=== PATIENT | male | born 1950 | race Caucasian/White ===

== ENCOUNTER → 2019-12-22 13:05 | Outpatient (CLI) | payer MEDICARE, SELFPAY ==
[2019-12-23 11:24] LABS: Basophils # 0.1 K/mm3 (0-0.2); Basophils % 0.8 % (0.1-2.0); Eosinophils # 0.2 K/mm3 (0.0-0.4); Eosinophils % 2.8 % (0.1-12.0); Hematocrit 45.9 % (42.0-52.0); Lymphocytes % 34.4 % (10-50); Mean Corpuscular HGB Conc 30.5 g/dL (31.8-35.4); Mean Corpuscular Hemoglobin 29.9 pg (27.0-31.2); Mean Corpuscular Volume 98.1 fl (80-94); Mean Platelet Volume 10.1 fl (7.4-10.4); Monocytes # 0.5 K/mm3 (0.1-1.0); Monocytes % 5.2 % (1.7-9.3); Neutrophils # 4.9 K/mm3 (1.8-7.8); Neutrophils % 56.9 % (37.0-80.0); Platelet Count 246 K/mm3 (142-424); Red Blood Count 4.68 M/mm3 (4.60-6.20); Red Cell Distribution Width 15.2 % (11.5-17.5); White Blood Count 8.6 K/mm3 (4.8-10.8)
[2019-12-23 11:31] LABS: Chloride 104 mmol/L (98-107); Potassium 4.8 mmoL/L (3.5-5.1); Sodium 140 mmol/L (136-145)
[2019-12-23 11:34] LABS: Alanine Aminotransferase 14 U/L (12-78); Albumin Level 4.3 g/dl (3.5-5.0); Albumin/Globulin Ratio 1.6 (1.1-1.8); Alkaline Phosphatase 68 U/L (38-126); Anion Gap 13.8 mEq/L (5-15); Aspartate Amino Transferase 25 U/L (17-59); Bilirubin,Total 0.3 mg/dl (0.2-1.3); Blood Urea Nitrogen 31 mg/dl (9-20); Carbon Dioxide 27 mmol/L (22.0-30.0); Cholesterol 143 mg/dl (140-200); Estimated Glomerular Filt Rate 60 ml/min (>60); GFR (African American) 73 ML/MIN (>60); Globulin 2.7 g/dL (1.3-3.2); Triglycerides 170 mg/dl (30-150); VLDL Cholesterol 34 mg/dL (0-40)
[2019-12-23 11:35] LABS: Calcium 10.1 mg/dl (8.4-10.2); Chol/HDL Ratio 3.1 (1-3.5); Glucose 109 mg/dl (74-100); HDL Cholesterol 46 mg/dl (40-60)
[2019-12-23 11:46] LABS: Direct LDL Cholesterol 77.36 mg/dL (100-129)
[2019-12-23 11:55] LABS: T4 (Thyroxine) 6.9 ug/dl (5.53-11.0)
[2019-12-23 12:08] LABS: Thyroid Stimulating Hormone 2.07 uIU/mL (0.465-4.68)
[2019-12-24 10:16] LABS: PSA, Free 0.11 ng/mL; Prostate Specific Ag 0.6 ng/mL (0.0-4.0)
[2019-12-24 10:18] LABS: Vitamin D 25 Hydroxy 36.9 ng/mL (30.0-100.0)
== END ==
PROVIDERS: Visit Provider Nurse Practitioner Family
DX: E78.5 Hyperlipidemia, unspecified (principal); I10 Essential (primary) hypertension; Z72.0 Tobacco use; Z79.899 Other long term (current) drug therapy; R10.84 Generalized abdominal pain
CPT/HCPCS: 80053; 80061; 82652; 84153; 84154; 84436; 84443; 85025

== ENCOUNTER → 2019-12-31 10:32 | Outpatient (CLI) | payer MEDICARE, SELFPAY ==
[2019-12-31 14:51] LABS: Amylase 58 U/L (30-110); Lipase 80 U/L (23-300)
[2020-01-01 20:44] LABS: H. pylori Breath Test Negative (Negative)
== END ==
PROVIDERS: Visit Provider Physician Assistant
DX: R10.13 Epigastric pain (principal); R10.826 Epigastric rebound abdominal tenderness; R14.0 Abdominal distension (gaseous); R14.2 Eructation
CPT/HCPCS: 36415; 82150; 83013; 83690

== ENCOUNTER → 2020-01-25 07:50 | Outpatient (CLI) | payer MEDICARE, SELFPAY ==
--- NOTE | 2020-01-25 07:50 | CT_ITS ---
PROCEDURE: CT ABDOMEN WO CON CLINICAL HISTORY: abd pain COMPARISON: No exams were available for comparison TECHNIQUE: Axial images obtained with sagittal and coronal reformats. All CT scans at the facility use one or more dose reduction, viz: automated exposure control, ma/kV adjustment per patient size (including targeted exams where dose is matched to indication, i.e. head), or iterative reconstruction technique. FINDINGS: There is mild bibasilar atelectasis. There are coronary arterial calcifications. Atherosclerotic calcifications are seen in the abdominal aorta, iliac and renal vessels. There is no aneurysm. There are calcifications at the corticomedullary junctions of both kidneys right greater than left consistent with nonobstructing renal calculi largest in the mid right kidney is approximately 14 millimeters. No ureteral calculus or hydronephrosis is apparent. A 11 millimeter non cystic exophytic nodule projects off the posterior cortex of the lower pole of the left kidney image 53 series 3 and image 52-53 series 601. Hounsfield unit measurements of 31 HU would be compatible with soft tissue density. A developing neoplasm is not excluded. Hemorrhagic cyst could give this appearance. Consider further assessment via postcontrast CT and/or ultrasound. Calcified splenic granulomas noted. Intra-abdominal organs otherwise have a normal appearance. Small fat containing periumbilical hernia is noted. A few colonic diverticuli are incidentally noted without diverticulitis. No free air free fluid or lymphadenopathy is apparent. Multilevel degenerative disc disease is seen throughout the spine. IMPRESSION: Nonobstructing bilateral nephrolithiasis right greater than left. 11 millimeter non cystic exophytic lesion left kidney. A developing neoplasm is not excluded. Follow-up is recommended. Atherosclerosis including coronary calcification Dictated by: Robles Greco 01/25/2020 08:52 Electronically signed by Robles Greco in [facility] 01/25/2020 08:52
== END ==
PROVIDERS: PCP Nurse Practitioner Family; Visit Provider Physician Assistant
DX: R10.826 Epigastric rebound abdominal tenderness (principal); R14.0 Abdominal distension (gaseous)
CPT/HCPCS: 74150

== ENCOUNTER → 2020-02-10 07:52 | Outpatient (CLI) | payer MEDICARE, SELFPAY ==
--- NOTE | 2020-02-10 07:55 | CT_ITS ---
PROCEDURE: CT ABDOMEN W CON CLINICAL HISTORY: left kidney lesion seen on CT Follow-up left kidney lesion COMPARISON: CT ABDOMEN WO CON from 01/25/2020 TECHNIQUE: 75 mL Optiray 350. Immediate and 10 minutes delayed post enhanced images are obtained Axial images obtained with sagittal and coronal reformats. All CT scans at the facility use one or more dose reduction, viz: automated exposure control, ma/kV adjustment per patient size (including targeted exams where dose is matched to indication, i.e. head), or iterative reconstruction technique. FINDINGS: Lung bases: Chronic changes with coronary artery and aortic valve calcification. Liver shows a 6 mm hypodense lesion in the right hepatic lobe inferiorly which is too small to categorize and may be due to small cyst. The gallbladder, spleen, adrenal glands, and pancreas are unremarkable. Kidneys: There is a 15 mm nonobstructing stone in the mid aspect of the right kidney and a 5 mm stone in the lower pole of the right kidney. No hydronephrosis is evident. There is an exophytic isodense to the projecting off the posterior and inferior aspect of the left kidney at approximately 11 mm. This is not significantly changed from 01/25/2020. This was hyperdense on the unenhanced images without significant enhancement. There is a small umbilical hernia which contains fat. No other significant anomalies are evident. IMPRESSION: 1. Right nephrolithiasis. 2. Indeterminate hyperdense nodule of the left kidney without significant enhancement. This could represent a hyperdense cyst. Ultrasound may provide further evaluation to determine cystic or solid nature. If that is not performed then, would recommend a 3 to six-month CT follow-up to confirm short term stability. Dictated by: Donte Levin MD 02/11/2020 09:16 Electronically signed by Donte Levin MD in [facility] 02/11/2020 09:16
[2020-02-10 08:09] LABS: Chloride 104 mmol/L (98-107); Sodium 140 mmol/L (136-145)
[2020-02-10 08:10] LABS: Potassium 4.7 mmoL/L (3.5-5.1)
[2020-02-10 08:12] LABS: Anion Gap 9.7 mEq/L (5-15); Blood Urea Nitrogen 21 mg/dl (9-20); Carbon Dioxide 31 mmol/L (22.0-30.0); Estimated Glomerular Filt Rate 67 ml/min (>60); GFR (African American) 81 ML/MIN (>60)
[2020-02-10 08:13] LABS: Calcium 9.8 mg/dl (8.4-10.2); Glucose 97 mg/dl (74-100)
--- NOTE | 2020-02-10 08:55 | HMH.ITSHM ---
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 []TAMSULOSIN TADALAFIL PANTOPRAZOLE OLMESARTAN NAPROXEN HYDROCODONE GABAPENTIN FINASTERIDE DICYCLOMINE ATORVASTATIN AMLODIPINE ALLOPURINOL
== END ==
PROVIDERS: PCP Nurse Practitioner Family; Visit Provider Physician Assistant
DX: Z01.818 Encounter for other preprocedural examination (principal); N28.9 Disorder of kidney and ureter, unspecified
CPT/HCPCS: 36415; 74160; 80048; Q9967

== ENCOUNTER → 2020-03-06 06:08 | Outpatient (CLI) | payer MEDICARE, SELFPAY ==
--- NOTE | 2020-03-06 06:09 | NM_ITS ---
APPROVED REPORT Exam: Nuclear Stress Test Indication: SOB, CAD, Hx of DC, HTN, High cholesterol, Tobacco use, Family history Patient Location: Outpatient Stress Tech: Jennie Nathan MT Tech:Elisa Schroeder, ARRT, RT (R)(N) Ht: 5 ft 6 in Wt: 220 lbs HR: 64 bpm BP: 127/77 mmHg BSA: 2.08 m2 BMI: 35.5 History: SOB, CAD, Hx of DC, HTN, High cholesterol, Tobacco use, Family history Procedure: Patient received a 0.4 mg of intravenous Lexiscan, resting heart rate 64 bpm, resting blood pressure 127/77 mmHg, with Lexiscan maximum heart rate achived was 83 bpm which is Less than 85 % of the maximum predicted heart rate and blood pressure was 120/62 mmHg. Electrocardiogram Resting electrocardiogram showed sinus rhythm right bundle branch block, with Lexiscan there is less than 1.[address] segment depression noted from the baseline EKG. The EKG portion of the Lexiscan Myoview is nondiagnostic. Cardiac Stress and Resting SPECT Images: Cardiac Stress and Resting SPECT images were obtained using technetium 99m Myoview 32.2 mCi stress and 10.46 mCi at rest. Gated SPECT for analysis of segmental wall motion and calculation of the ejection fraction also done. Cardiac stress and resting SPECT images show a fixed defect in the apex which is consistent with area of myocardial scarring, no significant golden-infarct ischemia seen. Computer derived ejection fraction is 64% with marked apical wall hypokinesis, right ventricle is normal size and contractility. Conclusion: 1. The EKG portion of the Lexiscan Myoview is nondiagnostic. 2. Scintigraphic evidence of myocardial scarring involving the apex without significant golden-infarct ischemia, computer derived ejection fraction is 64% with mild apical wall hypokinesis, right ventricle is normal size and contractility. 3. Abnormal Lexiscan Myoview study. Electronically signed by : Jarvis Brock, 03/06/2020 20:25:06
--- NOTE | 2020-03-06 06:09 | CA_ITS ---
APPROVED REPORT EXAM: Comprehensive 2D, Doppler, and color-flow Echocardiogram Baker Apprentice: Lana Whyte RVT Ht: 5 ft 6 in Wt: 221lbs BSA: 2.09 BP: 130/92 mmHg Indications: CAD,ABN CALCIUM SCORE ON CT,HTN,HLD,SMOKER,FATIGUE,STENT,HX WI,GERD,PILY,COPD 2D Dimensions LVOT 1.97 cm (M/F) 1.5-2.5 M-Mode Dimensions RVDd 2.33 cm (0.9-2.6) LVDd 5.43 cm (3.5-5.7) LVDs 3.90 cm (3.5-5.7) IVSd 1.09 cm (0.6-1.1) PWd 0.48 cm (0.6-1.1) EF (Teich) 53.90% FS 28.20% EDV (Teich) 143.10 mL ESV (Teich) 65.90 mL LV Diastology E/A Ratio 1.29 Mitral Valve MV A Velocity 86.00 (40-130 cm/s) Left Ventricle Left atrium is mildly enlarged, left ventricle is normal size, mild concentric left ventricular hypertrophy, visually estimated ejection fraction 55% with no regional wall motion abnormality, grade 1 diastolic dysfunction seen with tissue Doppler evidence of raise left atrial pressure. Right Ventricle Right atrium and right ventricle is normal size and contractility. Aortic Valve Aortic valve is thickened and calcified leaflet chordae display good mobility, there is no aortic stenosis or aortic insufficiency. Mitral Valve Mitral valve is grossly normal, there is mild mitral regurgitation. Tricuspid Valve Tricuspid valve is grossly normal, there is mild tricuspid regurgitation. Pulmonic Valve Pulmonic valve is poorly visualized. Great Vessels Aortic root is normal size. Pericardium No significant pericardial effusion noted. Conclusion 1. Mildly enlarged left atrium, normal left ventricular size, mild concentric left ventricular hypertrophy, visually estimated ejection fraction 55% with no regional wall motion abnormality, grade 1 diastolic dysfunction seen with tissue Doppler evidence of raise left atrial pressure. 2. Thickened and calcified aortic valve without aortic stenosis aortic insufficiency. 3. Mild mitral and tricuspid regurgitation. 4. No significant pericardial effusion noted. Electronically signed by : Jarvis Brock, 03/06/2020 19:57:34
--- NOTE | 2020-03-06 06:09 | CA_ITS ---
APPROVED REPORT Exam: Pharmacologic Technologist: Jennie Nathan Ht: 5 ft 6 in Wt: 220 lbs BSA: 2.08 m2 HR: 64 bpm BP: 127/77 mmHg Indications: Abnormal CT, CAD Medical History Medications: Amlodipine,,,,, Aspirin,,,,, Hydrocodone,,,,, Allopurinol,,,,, Pantoprazole,,,,, Atorvastatin,,,,, TAMSULOSIN,,,,, Naproxen,,,,, DicyCLOMINE,,,,, Finasteride,,,,, Nitroglycerin,,,,, Olmesartan,,,,, Stress Test Details Test: LEXISCAN HR Resting HR: 66 bpm Max Heart Rate (APMHR): 153 bpm Max HR Achieved: 96 bpm Target HR (85% APMHR): 130 bpm % of APMHR: 62 Recovery HR: 78 bpm BP Resting BP: 127.0/77.0 mmHg Max BP: 127.0/77.0 mmHg Recovery BP: 117.0/62.0 mmHg ECG Clinical Exercise duration: 04:00 min Highest Stage Achieved: Exercise capacity: 1.0 METs Stress ECG Conclusion Resting ECG: Sinus rhythm, right bundle branch block Lexiscan portion of completed. Patient complained of chest tightness and shortness of breath during peak infusion. Symptoms: Chest pain and shortness of breath during peak infusion. Resolved in recovery. Arrhythmias/Ectopy: No ectopy ST-T Changes: Less than 1.[address] depression. Conclusion: Images to follow. Electronically signed by : Jarvis Brock, 03/06/2020 20:22:14
--- NOTE | 2020-03-06 08:58 | HMH.ITSHM ---
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 []ASA AMLODIPINE ALLOPURINOL TAMSULOSIN TADALAFIL PANTOPRAZOLE OLMESARTAN NITRO NAPROXEN HYDROCODONE GABAPENTIN FINASTERIDE DICYLOMINE ATORVASTATIN
== END ==
PROVIDERS: PCP Nurse Practitioner Family; Visit Provider Urology
DX: E78.5 Hyperlipidemia, unspecified (principal); G47.33 Obstructive sleep apnea (adult) (pediatric); I10 Essential (primary) hypertension; I25.10 Atherosclerotic heart disease of native coronary artery without angina pectoris; I25.2 Old myocardial infarction; Z95.5 Presence of coronary angioplasty implant and graft
CPT/HCPCS: 78452; 93017; 93306; A9502; J2785

== ENCOUNTER → 2020-06-05 14:53 | Outpatient (CLI) | payer MEDICARE, SELFPAY ==
--- NOTE | 2020-06-05 14:53 | US_ITS ---
PROCEDURE: US KIDNEY CLINICAL INDICATION: Indeterminate left renal nodule COMPARISON: CT CT ABDOMEN W CON from 02/10/2020 FINDINGS: The right kidney is [id number]. No hydronephrosis, cortical thinning, or renal mass or perinephric fluid collection is evident. The left kidney is [id number]. No hydronephrosis, cortical thinning, or renal mass or perinephric fluid collection is evident. There is a small exophytic cyst along the lower pole left kidney at [address] abnormality. IMPRESSION: CT abnormality corresponds to a benign-appearing 9 mm cyst otherwise negative bilateral renal ultrasound Dictated b Donte Levin MD 06/05/2020 15:53 Donte Levin MD in [facility] 06/05/2020 15:53
== END ==
PROVIDERS: PCP Physician Assistant; Visit Provider Physician Assistant
DX: N28.89 Other specified disorders of kidney and ureter (principal)
CPT/HCPCS: 76770

== ENCOUNTER 2020-06-22 08:00 | Outpatient (RCR) | payer MEDICARE, SELFPAY ==
--- NOTE | 2020-06-08 10:03 | HMH.PTOPEV ---
PT Outpatient Evaluation Rehab PT Outpatient Evaluation Start: 06/08/20 09:04 Freq: Status: Active Protocol: Document 06/08/20 09:44 RAND (Rec: 06/08/20 10:02 RAND [id number]) Electronically Signed By Delbert John, NICK 06/08/20 09:44 Outpatient Therapy Subjective History Subjective History This is the initial Physical Therapy Evaluation for Last Hitchcock. Pt is a 69 y/o male referred to PT for c/o neck and ARELLANO pain. Pt reports he has had multiple trauma to neck in his life but reports pain began insidiously ~ 12-14 years ago. Pt reports his pain begins the moment he wakes up every morning. Pt reports he has ARELLANO's on B sides of head. Chief Complaint Pain,Stiff Symptom Type Ache,Throb,Sharp,Dull,Stabbing Symptoms Relieved By Prescription Meds Symptoms Aggravated By Physical Activity Prior Functional Limitations None Current Functional Limitations Sleeping,Recreation Activity Symptom Description Intermittent Level of pain today (0-10) 5 Pain scale - at its best (0-10) 0 Pain scale - at its worst (0-10) 10 Cervical Eval Palpation Cervical Muscles R Cervical Paraspinal,L Cervical Paraspinal,R Suboccipital,L Suboccipital,R Upper Trapezius,L Upper Trapezius Cervical/Thoracic Palpation Findings Tenderness Passive Joint Mobility Cervical PIVM Dec: R C2/3 L C2/3 R C3/4 L C3/4 R C4/5 L C4/5 R C5/6 L C5/6 R C6/7 L C6/7 R C7/T1 L C7/T1 AROM Cervical Spine Extension Active Range of 50 Motion (degrees) Cervical Spine Flexion Active Range of 40 Motion (degrees) Cervical Spine Right Lateral Flexion 35 Active Range of Motion (degrees) Cervical Spine Left Lateral Flexion 35 Active Range of Motion (degrees) Cervical Spine Right Rotation Active 50 Range of Motion (degrees) Cervical Spine Left Rotation Active 60 Range of Motion (degrees) MMT
== END 2020-06-22 08:05 | disposition home or self-care (01) ==
LOC: PT 08:00
PROVIDERS: PCP Physician Assistant; Visit Provider Physician Assistant
DX: M54.2 Cervicalgia (principal)
CPT/HCPCS: 20560; 97010; 97012; 97014; 97110; 97140; 97163; G0283

== ENCOUNTER → 2020-08-28 09:41 | Outpatient (POV) | payer MEDICARE, SELFPAY ==
[2020-08-28 10:08] VITALS: BP 140/74; PULSE 88; RESP 18; O2SAT 98; BMI 36.3
--- NOTE | 2020-08-28 11:26 | HMH.PMCON ---
Assessment and Plan (1) Degenerative disc disease, cervical Status: Chronic Category: Medical Code(s): M50.30 - Other cervical disc degeneration, unspecified cervical region (2) Neck Pain Status: Chronic Category: Medical Code(s): M54.2 - Cervicalgia - Assessment and plan all Dx Assessment and Plan for all problems:: Patient and I had a discussion in regards to treatment options. Patient is going to continue on his Elavil and with his ENT treatment to see if he gets any benefit from this. I did give him information on nerve stimulation. He is currently on gabapentin and Merrill from his primary care physician. I do believe that this is an appropriate dose. Patient's been instructed to call the office if he would like to return for continual evaluation. Dr. Terrell has reviewed this note and agrees with this plan of care. This note was dictated using voice recognition software and may contain errors or omissions HPI - Data of Consult Consult date: 08/28/20 Requesting Physician: Kenyatta Arellano APRN Primary Care Provider: PANKAJ Monreal - Consult Narrative Reason for consult: Headaches History of present illness: Mr. Hitchcock is a 69 year old male Zentz today for consultation regards to his chronic headaches. Patient has had headaches for 12 to 13 years. He rates his pain a 4 out of 10. He states that they constant. They were originate in his neck. He does have an MRI showing degenerative changes in his neck. Patient has had multiple injections including epidural injections, facet joint injections, trigger point injections. He is gone to 2 locations both in [place] in [place] to get these injections. He has had no relief with them. He is currently seeing Dr. Holman in neurology and was started on Elavil. Patient has just begun this he is unsure if it has helped at this time. Patient also has chronic sinus problems and has been to started seeing an ENT. Patient has been offered a nerve stimulator in the past. Patient is also tried chiropractic therapy, physical therapy, dry needling. CC: Kenyatta Arellano APRN [facility] History I have reviewed the patient's past medical history: Yes Medical History: Reports:: Chronic Obstructive Pulmonary Disease (COPD), Congenital Heart Disease, Coronary Artery Disease, Gastroesophageal Reflux Disease(GERD), Hyperlipidemia, Hypertension, Myocardial Infarction Denies:: Cancer, Diabetes Mellitus Type 1, Diabetes Mellitus Type 2, MRSA *Have you ever received a pneumonia vaccine?: No *Have you received a flu vaccine this season?: No Other Medical History: Reports: Arthritis, Other Laterality Cases: Bilateral: Tonsillectomy Other Surgeries: Yes: Cardiac Catheterization, Colonoscopy, Coronary Stent, Hernia Repair, Open Heart Surgery Amputation: No Fractures: No - *Social History Smoking Status: Current every day smoker Tobacco Type: cigarettes # Packs/Day (cigarettes): 1 Alcohol Intake: never Substance Use Type: denies use *Occupational Status:: other Housing: house Household Members: other *Travel in the last 8 weeks: None Family Hx:: Unable to obtain Review of Systems - Review of Systems ROS General: no recent weight change, no fever, no sleep disturbances Respiratory: no cough, no shortness of air, no recurring pulmonary infections Cardiovascular/Peripheral Vascular: No chest pain, No palpitations, no edema, no shortness of breath. Gastrointestinal: no new onset incontinence, normal bowel movements reported Genitourinary: no new onset incontinence Musculoskeletal: Headaches, neck pain Psychiatric: normal mood/ affect Neurological: [denies new onset weakness in extremities], [denies new onset balance issues] Meds Home Medications Medication Instructions Recorded Confirmed Type allopurinol 300 mg tablet 300 mg PO DAILY tab 02/22/20 08/22/20 History aspirin 325 mg tablet 325 mg PO DAILY 02/22/20 08/22/20 History atorvastatin 10 mg t
== END ==
PROVIDERS: PCP Physician Assistant; Visit Provider Clinical Nurse Specialist Family Health
DX: M50.30 Other cervical disc degeneration, unspecified cervical region (principal)
CPT/HCPCS: 99202

== ENCOUNTER → 2020-09-18 10:39 | Outpatient (POV) | payer MEDICARE, SELFPAY | PROVIDERS: Visit Provider Nurse Practitioner Family | DX: Z00.00 Encounter for general adult medical examination without abnormal findings (principal) ==

== ENCOUNTER → 2020-12-27 13:47 | Outpatient (CLI) | payer MEDICARE, SELFPAY ==
[2020-12-27 14:15] LABS: Basophils # 0.1 K/mm3 (0-0.2); Basophils % 0.5 % (0.1-2.0); Eosinophils # 0.3 K/mm3 (0.0-0.4); Hematocrit 45.7 % (42.0-52.0); Hemoglobin 14.3 g/dL (14.1-18.0); Lymphocytes # 2.9 K/mm3 (0.7-4.5); Mean Corpuscular HGB Conc 31.2 g/dL (31.8-35.4); Mean Corpuscular Hemoglobin 28.9 pg (27.0-31.2); Mean Corpuscular Volume 92.6 fl (80-94); Mean Platelet Volume 9.3 fl (7.4-10.4); Monocytes # 0.6 K/mm3 (0.1-1.0); Monocytes % 6.2 % (1.7-9.3); Neutrophils # 5.4 K/mm3 (1.8-7.8); Neutrophils % 58.4 % (37.0-80.0); Platelet Count 254 K/mm3 (142-424); Red Blood Count 4.94 M/mm3 (4.60-6.20); Red Cell Distribution Width 15.4 % (11.5-17.5); White Blood Count 9.2 K/mm3 (4.8-10.8)
[2020-12-27 14:39] LABS: Alanine Aminotransferase 15 U/L (12-78); Albumin Level 4.2 g/dl (3.5-5.0); Albumin/Globulin Ratio 1.4 (1.1-1.8); Alkaline Phosphatase 80 U/L (38-126); Anion Gap 11.5 mEq/L (5-15); Aspartate Amino Transferase 23 U/L (17-59); Bilirubin,Total 0.5 mg/dl (0.2-1.3); Blood Urea Nitrogen 18 mg/dl (9-20); Carbon Dioxide 30 mmol/L (22.0-30.0); Chloride 105 mmol/L (98-107); Chol/HDL Ratio 3.3 (1-3.5); Cholesterol 143 mg/dl (140-200); Estimated Glomerular Filt Rate 60 ml/min (>60); GFR (African American) 73 ML/MIN (>60); Glucose 110 mg/dl (74-100); HDL Cholesterol 43 mg/dl (40-60); Potassium 5.5 mmoL/L (3.5-5.1); Sodium 141 mmol/L (136-145); Total Protein,Serum 7.2 g/dl (6.3-8.2); Triglycerides 91 mg/dl (30-150); VLDL Cholesterol 18 mg/dL (0-40)
[2020-12-27 14:50] LABS: Direct LDL Cholesterol 75.77 mg/dL (100-129)
[2020-12-27 14:56] LABS: 25-OH Vitamin D, Total 35.5 ng/mL (30-100)
[2020-12-27 15:02] LABS: Free T4 (Free Thyroxine) 1.09 ng/dl (0.78-2.19)
[2020-12-27 15:11] LABS: Prostate Specific Ag Screen 0.3 ng/ml (0.0-4.0)
== END ==
PROVIDERS: Visit Provider Physician Assistant
DX: E78.5 Hyperlipidemia, unspecified (principal); G47.33 Obstructive sleep apnea (adult) (pediatric); I25.10 Atherosclerotic heart disease of native coronary artery without angina pectoris; I25.2 Old myocardial infarction; R53.83 Other fatigue; R63.5 Abnormal weight gain; Z95.5 Presence of coronary angioplasty implant and graft; Z12.5 Encounter for screening for malignant neoplasm of prostate; Z68.38 Body mass index [BMI] 38.0-38.9, adult
CPT/HCPCS: 80053; 80061; 82306; 84439; 84443; 85025; G0103

== ENCOUNTER → 2021-01-04 13:47 | Outpatient (CLI) | payer MEDICARE, SELFPAY ==
[2021-01-04 14:12] LABS: Chloride 106 mmol/L (98-107); Potassium 5.2 mmoL/L (3.5-5.1); Sodium 140 mmol/L (136-145)
[2021-01-04 14:15] LABS: Anion Gap 9.2 mEq/L (5-15); Blood Urea Nitrogen 26 mg/dl (9-20); Calcium 9.7 mg/dl (8.4-10.2); Carbon Dioxide 30 mmol/L (22.0-30.0); Estimated Glomerular Filt Rate 55 ml/min (>60); GFR (African American) 66 ML/MIN (>60); Glucose 111 mg/dl (74-100)
== END ==
PROVIDERS: Visit Provider Physician Assistant
DX: R89.9 Unspecified abnormal finding in specimens from other organs, systems and tissues (principal)
CPT/HCPCS: 80048

== ENCOUNTER → 2021-02-15 14:11 | Outpatient (CLI) | payer MEDICARE, SELFPAY ==
--- NOTE | 2021-02-15 14:11 | US_ITS ---
PROCEDURE: US KIDNEY CLINICAL INDICATION: N28.1 - Cyst of kidney, acquired Follow-up left renal cyst COMPARISON: CT CT ABDOMEN W CON from 02/10/2020 US US KIDNEY from 06/05/2020 FINDINGS: The right kidney is [id number]. No hydronephrosis, cortical thinning, or renal mass or perinephric fluid collection is evident. Shadowing is present in the mid aspect of the right kidney suggesting right nephrolithiasis. No hydronephrosis. The left kidney is [id number]. No hydronephrosis, cortical thinning, or renal mass or perinephric fluid collection is evident.. There is a 9 mm cyst along the lower pole of the left kidney not significantly changed IMPRESSION: 1. No change small left renal cyst. 2. Right nephrolithiasis Dictated by: Donte Levin MD 02/15/2021 16:43 Donte Levin MD in [place] 02/15/2021 16:43
== END ==
PROVIDERS: PCP Physician Assistant; Visit Provider Urology
DX: N28.1 Cyst of kidney, acquired (principal)
CPT/HCPCS: 76770

== ENCOUNTER → 2021-02-26 12:03 | Outpatient (CLI) | payer MEDICARE, SELFPAY ==
--- NOTE | 2021-02-26 12:07 | XR_ITS ---
PROCEDURE: XR KNEE RT 4V CLINICAL INDICATION: right knee pain COMPARISON: No exams were available for comparison FINDINGS: No fracture or dislocation. No lytic or blastic change. There is normal mineralization. Moderate osteoarthritic changes involve the medial compartment. There is mild lateral translation of the tibia approximately 5 mm. There are mild osteoarthritic changes of the lateral compartment and patellofemoral joint. Other findings:None. IMPRESSION: Moderate osteoarthritic changes medial compartment Dictated by: Donte Levin MD 02/26/2021 16:11 Donte Levin MD in [place] 02/26/2021 16:11
== END ==
PROVIDERS: PCP Physician Assistant; Visit Provider Physician Assistant
DX: M25.561 Pain in right knee (principal)
CPT/HCPCS: 73564

== ENCOUNTER → 2021-04-04 10:34 | Outpatient (CLI) | payer MEDICARE, SELFPAY ==
[2021-04-04 10:55] LABS: Basophils # 0.1 K/mm3 (0-0.2); Basophils % 0.6 % (0.1-2.0); Eosinophils # 0.3 K/mm3 (0.0-0.4); Eosinophils % 3.4 % (0.1-12.0); Hematocrit 43.9 % (42.0-52.0); Hemoglobin 14.5 g/dL (14.1-18.0); Lymphocytes # 2.9 K/mm3 (0.7-4.5); Lymphocytes % 33.5 % (10-50); Mean Corpuscular HGB Conc 32.9 g/dL (31.8-35.4); Mean Corpuscular Hemoglobin 29.5 pg (27.0-31.2); Mean Corpuscular Volume 89.5 fl (80-94); Mean Platelet Volume 7.6 fl (7.4-10.4); Monocytes # 0.4 K/mm3 (0.1-1.0); Monocytes % 4.8 % (1.7-9.3); Neutrophils % 57.7 % (37.0-80.0); Platelet Count 217 K/mm3 (142-424); Red Blood Count 4.91 M/mm3 (4.60-6.20); Red Cell Distribution Width 15.7 % (11.5-17.5); White Blood Count 8.6 K/mm3 (4.8-10.8)
[2021-04-04 12:17] LABS: Chloride 103 mmol/L (98-107); Potassium 4.7 mmoL/L (3.5-5.1); Sodium 140 mmol/L (136-145)
[2021-04-04 12:20] LABS: Anion Gap 14.7 mEq/L (5-15); Blood Urea Nitrogen 24 mg/dl (9-20); Calcium 9.3 mg/dl (8.4-10.2); Carbon Dioxide 27 mmol/L (22.0-30.0); Estimated Glomerular Filt Rate 67 ml/min (>60); GFR (African American) 81 ML/MIN (>60); Glucose 146 mg/dl (74-100)
== END ==
PROVIDERS: Visit Provider Surgery
DX: M50.30 Other cervical disc degeneration, unspecified cervical region (principal); L81.9 Disorder of pigmentation, unspecified; Z01.812 Encounter for preprocedural laboratory examination; Z20.822 Contact with and (suspected) exposure to COVID-19
CPT/HCPCS: 80048; 85025; U0003

== ENCOUNTER 2021-04-06 06:06 | Day surgery (SDC) | payer MEDICARE, SELFPAY ==
[2021-04-04 10:15] VITALS: BMI 37.1
--- NOTE | 2021-04-06 06:18 | ECG_ITS ---
APPROVED REPORT Exam: Resting ECG HR:71 bpm ECG Measurements Heart Rate 71 AXES IA 172 P 22 QRSd 128 QRS 89 QT 396 T 44 QTc 430 Conclusion Normal sinus rhythm Right bundle branch block Possible Inferior infarct, age undetermined Abnormal ECG Electronically signed by : Levar Meza, 04/07/2021 10:52:04
[2021-04-06 06:30] VITALS: BP 120/62; PULSE 69; RESP 18; TEMP 37.6; O2SAT 95
--- NOTE | 2021-04-06 07:00 | P.PN_ITS ---
[facility] Anesthesia Checklist - Patient Identification Patient Identification: Arm Band - Structural Data Admitted From: Home Planned Operative Procedure/s: Lesion removal Consent for Planned Operative Procedure(s) Verified: Yes - NPO Status Verified Time NPO: 00:00 - Additional verifications Anesthesia Reactions: No Hx Blood Transfusions: No Blood Transfusion Reaction: No - Airway Assessment C-Spine Mobility Assessed: Yes TMJ Mobility Assessed: Yes Dentition: Poor Dentition - Neurological Assessment Level of Consciousness: Awake Hx Seizures: No Numbness or tingling in extremities: No - Anesthesia Plan Anesthesia Risk discussed: Yes Anesthesia Plan: Verified ASA Class: III Anesthesia Type: MAC [facility] History I have reviewed the patient's past medical history: Yes Medical History: Reports:: Chronic Obstructive Pulmonary Disease (COPD), Congenital Heart Disease, Coronary Artery Disease, Gastroesophageal Reflux Disease(GERD), Hyperlipidemia, Hypertension, Myocardial Infarction, Renal Disease Denies:: Cancer, Diabetes Mellitus Type 1, Diabetes Mellitus Type 2, Internal Pacemaker, MRSA, Seizures *Have you ever received a pneumonia vaccine?: Yes *Have you received a flu vaccine this season?: Yes Other Medical History: Reports: Arthritis, Other. Denies: Blood Transfusion Reaction Anesthesia experience/problems:: None Laterality Cases: Left: Arthroscopy Knee, Bilateral: Tonsillectomy Other Surgeries: Yes: Cardiac Catheterization, Colonoscopy, Coronary Stent, Hernia Repair, Open Heart Surgery. No: Pacemaker Amputation: No Fractures: No - *Social History Last grade of school completed: Some college Smoking Status: Current every day smoker Tobacco Type: cigarettes # Packs/Day (cigarettes): 1 Alcohol Intake: never Substance Use Type: denies use *Occupational Status:: retired Housing: house Household Members: spouse *Travel in the last 8 weeks: None Family Hx:: Diabetes
--- NOTE | 2021-04-06 07:47 | HMH.OPNOTE ---
Date of procedure: 04/06/21 Pre-op Diagnosis:: Left upper extremity skin neoplasm of uncertain behavior (1 cm) Right flank skin neoplasm of uncertain behavior (1 cm) Post-op Diagnosis:: Same Procedure performed:: Excision of left upper extremity skin neoplasm (1cm) Excision of right flank skin neoplasm (1 cm) Surgeon:: Calderon Garrido MD Anesthesia: MAC, local Estimated blood loss (mL): 10 Operative findings:: Lesions excised with 1 mm margin Operative note:: After informed consent was obtained the patient was taken to the operating room and placed in the supine position. Monitored anesthesia care ensued. The right mid flank and the left proximal upper extremity were prepped and draped in a sterile fashion. After infiltration local anesthetic elliptical incisions were made around both lesions with scalpel (1 mm margin). The deep subcutaneous tissue was sharply dissected. Both lesions were excised in toto and passed off for pathologic evaluation. Electrocautery was utilized to achieve hemostasis. Skin was reapproximated with interrupted 4-0 nylon. Dressings were applied and the patient was transferred recovery in stable condition. Condition: stable Disposition: PACU Specimens:: Left upper extremity skin neoplasm Right flank skin neoplasm Complications:: No immediate
[2021-04-06 07:55] VITALS: BP 102/47; PULSE 78; RESP 16; TEMP 36.4; O2SAT 94
[2021-04-06 08:10] VITALS: BP 102/60; PULSE 75; RESP 18; O2SAT 94
[2021-04-06 08:25] VITALS: BP 105/59; PULSE 64; RESP 18; O2SAT 96
== END 2021-04-06 08:25 | disposition home or self-care (01) ==
LOC: OR 06:08
PROVIDERS: PCP Physician Assistant; Visit Provider Surgery
DX: I10 Essential (primary) hypertension (principal); C44.519 Basal cell carcinoma of skin of other part of trunk; J44.9 Chronic obstructive pulmonary disease, unspecified; I25.10 Atherosclerotic heart disease of native coronary artery without angina pectoris; K21.9 Gastro-esophageal reflux disease without esophagitis; E78.5 Hyperlipidemia, unspecified; I25.2 Old myocardial infarction; Q24.9 Congenital malformation of heart, unspecified; N28.9 Disorder of kidney and ureter, unspecified; M19.90 Unspecified osteoarthritis, unspecified site; Z72.0 Tobacco use; Z83.3 Family history of diabetes mellitus; D18.01 Hemangioma of skin and subcutaneous tissue
CPT/HCPCS: 11106; 11107; 88305; 93005; 96374

== ENCOUNTER → 2021-04-23 13:42 | Outpatient (CLI) | payer MEDICARE, SELFPAY ==
[2021-04-23 17:33] LABS: Amphetamine/Metha Screen,Urine Negative ng/ml (<1000)
[2021-04-23 17:34] LABS: Barbiturates Screen,Urine Negative ng/ml (<200)
[2021-04-23 17:35] LABS: Benzodiazepines Screen,Urine Negative ng/ml (<200); Cannabinoid Screen,Urine Negative ng/ml (<50)
[2021-04-23 17:36] LABS: Cocaine Screen,Urine Negative ng/ml (<300)
[2021-04-23 17:37] LABS: Methadone Screen,Urine Negative ng/ml (<300); Opiate Screen,Urine Positive ng/ml (<300)
[2021-04-23 17:38] LABS: Phencyclidine Screen,Urine Negative ng/ml (<25)
== END ==
PROVIDERS: Visit Provider Physician Assistant
DX: Z79.899 Other long term (current) drug therapy (principal)
CPT/HCPCS: 80305

== ENCOUNTER → 2021-04-24 14:55 | Outpatient (POV) | payer MEDICARE, SELFPAY | PROVIDERS: Visit Provider Dermatology | DX: Z00.00 Encounter for general adult medical examination without abnormal findings (principal) ==

== ENCOUNTER → 2021-05-29 07:56 | Outpatient (POV) | payer MEDICARE, SELFPAY | PROVIDERS: Visit Provider Dermatology | DX: Z00.00 Encounter for general adult medical examination without abnormal findings (principal) ==

== ENCOUNTER → 2021-08-14 13:53 | Outpatient (CLI) | payer MEDICARE, SELFPAY ==
[2021-08-14 14:06] LABS: Basophils # 0.1 K/mm3 (0-0.2); Basophils % 0.6 % (0.1-2.0); Eosinophils # 0.3 K/mm3 (0.0-0.4); Eosinophils % 4.1 % (0.1-12.0); Hematocrit 49.1 % (42.0-52.0); Hemoglobin 14.9 g/dL (14.1-18.0); Lymphocytes # 2.4 K/mm3 (0.7-4.5); Lymphocytes % 30.2 % (10-50); Mean Corpuscular HGB Conc 30.3 g/dL (31.8-35.4); Mean Corpuscular Hemoglobin 29.4 pg (27.0-31.2); Mean Corpuscular Volume 96.9 fl (80-94); Mean Platelet Volume 9.9 fl (7.4-10.4); Monocytes # 0.5 K/mm3 (0.1-1.0); Monocytes % 6.4 % (1.7-9.3); Neutrophils # 4.7 K/mm3 (1.8-7.8); Neutrophils % 58.7 % (37.0-80.0); Platelet Count 225 K/mm3 (142-424); Red Blood Count 5.07 M/mm3 (4.60-6.20); Red Cell Distribution Width 15.2 % (11.5-17.5); White Blood Count 7.9 K/mm3 (4.8-10.8)
[2021-08-14 14:39] LABS: Chol/HDL Ratio 3.6 (1-3.5); Cholesterol 129 mg/dl (140-200); HDL Cholesterol 36 mg/dl (40-60); Triglycerides 91 mg/dl (30-150); VLDL Cholesterol 18 mg/dL (0-40)
[2021-08-14 14:57] LABS: T4 (Thyroxine) 7.6 ug/dl (5.53-11.0)
[2021-08-14 15:02] LABS: Hemoglobin A1C 7.7 % (4.0-6.0)
[2021-08-14 15:11] LABS: Thyroid Stimulating Hormone 3.51 uIU/mL (0.465-4.68)
== END ==
PROVIDERS: Visit Provider Physician Assistant
DX: E78.5 Hyperlipidemia, unspecified (principal); I10 Essential (primary) hypertension; M50.30 Other cervical disc degeneration, unspecified cervical region; E11.21 Type 2 diabetes mellitus with diabetic nephropathy; Z79.84 Long term (current) use of oral hypoglycemic drugs
CPT/HCPCS: 80061; 83036; 84153; 84154; 84436; 84443; 85025

== ENCOUNTER → 2022-02-18 12:47 | Outpatient (CLI) | payer MEDICARE, SELFPAY ==
--- NOTE | 2022-02-18 12:48 | US_ITS ---
FINAL REPORT TECHNIQUE: Sonographic images were obtained of the retroperitoneum. CLINICAL HISTORY: .f/u renal cyst COMPARISON: February 15, 2021 FINDINGS: The right kidney measures 10.2 cm. There are echogenic shadowing foci in the right renal collecting system consistent with small nonobstructing stones. The left kidney measures 10.7 cm. There is a 9 mm cyst in the lower pole of the left kidney. IMPRESSION: Right renal stones. 9 mm lower pole left renal cyst. Reviewed, Interpreted and Dictated by Gael Carreon MD Transcribed by Evgeny Emery Authenticated by Gael Carreon MD on 02/18/2022 04:32:[address] [facility]
== END ==
PROVIDERS: PCP Physician Assistant; Visit Provider Urology
DX: N28.1 Cyst of kidney, acquired (principal)
CPT/HCPCS: 76770

== ENCOUNTER → 2022-03-26 10:14 | Outpatient (CLI) | payer MEDICARE, SELFPAY ==
[2022-03-26 14:02] LABS: Alanine Aminotransferase 20 U/L (12-78); Albumin Level 3.9 g/dl (3.5-5.0); Albumin/Globulin Ratio 1.5 (1.1-1.8); Alkaline Phosphatase 74 U/L (38-126); Anion Gap 13.1 mEq/L (5-15); Aspartate Amino Transferase 25 U/L (17-59); Blood Urea Nitrogen 28 mg/dl (9-20); Calcium 9.7 mg/dl (8.4-10.2); Carbon Dioxide 30 mmol/L (22.0-30.0); Chloride 102 mmol/L (98-107); Chol/HDL Ratio 3.9 (1-3.5); Cholesterol 134 mg/dl (140-200); Estimated Glomerular Filt Rate 66 ml/min (>60); GFR (African American) 80 ML/MIN (>60); Globulin 2.6 g/dL (1.3-3.2); Glucose 96 mg/dl (74-100); HDL Cholesterol 34 mg/dl (40-60); Potassium 5.1 mmoL/L (3.5-5.1); Sodium 140 mmol/L (136-145); Total Protein,Serum 6.5 g/dl (6.3-8.2); Triglycerides 175 mg/dl (30-150); VLDL Cholesterol 35 mg/dL (0-40)
[2022-03-26 14:03] LABS: Bilirubin,Total 0.1 mg/dl (0.2-1.3)
[2022-03-26 14:09] LABS: Basophils # 0.1 K/mm3 (0-0.2); Basophils % 0.8 % (0.1-2.0); Eosinophils # 0.3 K/mm3 (0.0-0.4); Eosinophils % 3.4 % (0.1-12.0); Hemoglobin 14.3 g/dL (14.1-18.0); Lymphocytes # 2.3 K/mm3 (0.7-4.5); Lymphocytes % 30.6 % (10-50); Mean Corpuscular HGB Conc 31.8 g/dL (31.8-35.4); Mean Platelet Volume 9.2 fl (7.4-10.4); Monocytes # 0.5 K/mm3 (0.1-1.0); Neutrophils # 4.4 K/mm3 (1.8-7.8); Neutrophils % 58.3 % (37.0-80.0); Platelet Count 243 K/mm3 (142-424); Red Blood Count 4.95 M/mm3 (4.60-6.20); Red Cell Distribution Width 16.9 % (11.5-17.5); White Blood Count 7.6 K/mm3 (4.8-10.8)
[2022-03-26 14:20] LABS: Direct LDL Cholesterol 74.57 mg/dL (100-129)
[2022-03-26 14:32] LABS: 25-OH Vitamin D, Total 37.3 ng/mL (30-100)
[2022-03-26 14:41] LABS: Amphetamine/Metha Screen,Urine Negative ng/ml (<1000); Barbiturates Screen,Urine Negative ng/ml (<200)
[2022-03-26 14:42] LABS: Prostate Specific Ag Screen 0.8 ng/ml (0.0-4.0)
[2022-03-26 14:44] LABS: Benzodiazepines Screen,Urine Negative ng/ml (<200); Cannabinoid Screen,Urine Negative ng/ml (<50)
[2022-03-26 14:45] LABS: Cocaine Screen,Urine Negative ng/ml (<300)
[2022-03-26 14:46] LABS: Methadone Screen,Urine Negative ng/ml (<300)
[2022-03-26 14:47] LABS: Opiate Screen,Urine Positive ng/ml (<300); Phencyclidine Screen,Urine Negative ng/ml (<25)
[2022-03-26 15:19] LABS: Hemoglobin A1C 5.6 % (4.0-6.0)
== END ==
PROVIDERS: PCP Physician Assistant; Visit Provider Physician Assistant
DX: E11.9 Type 2 diabetes mellitus without complications (principal); Z12.5 Encounter for screening for malignant neoplasm of prostate; R53.83 Other fatigue; M54.2 Cervicalgia; Z00.00 Encounter for general adult medical examination without abnormal findings; E66.9 Obesity, unspecified; Z68.39 Body mass index [BMI] 39.0-39.9, adult; Z79.84 Long term (current) use of oral hypoglycemic drugs
CPT/HCPCS: 80053; 80061; 80305; 82043; 82306; 83036; 84443; 85025; G0103

== ENCOUNTER → 2022-03-26 14:12 | Outpatient (CLI) | payer MEDICARE, SELFPAY | PROVIDERS: PCP Emergency Medicine; Visit Provider Emergency Medicine | DX: M54.2 Cervicalgia (principal) ==

== ENCOUNTER → 2022-04-22 08:19 | Outpatient (CLI) | payer MEDICARE, SELFPAY ==
--- NOTE | 2022-04-22 08:20 | CT_ITS ---
FINAL REPORT CLINICAL HISTORY: lung cancer screening, 50 year smoker, LD lung screening, no hx of cancer, does have COPD and emphysema FINDINGS: CTDI vol (mGy): 2.[address] images of the chest were obtained using the low-dose protocol for screening. There is no evidence of mediastinal or hilar mass or adenopathy. No axillary mass or adenopathy is identified. On the lung window images, no pulmonary mass or suspicious nodule is identified. IMPRESSION: Lung RADS category 1 . Recommend 12 month followup low-dose CT for further evaluation. Reviewed, Interpreted and Dictated by Last Khanna III, MD Transcribed by Coty Ruby Authenticated and . [facility]
== END ==
PROVIDERS: PCP Emergency Medicine; Visit Provider Physician Assistant
DX: Z87.891 Personal history of nicotine dependence (principal); Z12.2 Encounter for screening for malignant neoplasm of respiratory organs
CPT/HCPCS: 71271

== ENCOUNTER → 2022-06-19 09:13 | Outpatient (CLI) | payer MEDICARE, SELFPAY ==
--- NOTE | 2022-06-19 09:58 | XR_ITS ---
FINAL REPORT CLINICAL HISTORY: LEFT SHOULDER PAIN FINDINGS: LEFT SHOULDER Multiple views of the left shoulder were obtained. There is no acute fracture or dislocation. There are mild hypertrophic changes of the acromioclavicular joint. Soft tissues are unremarkable. IMPRESSION: Degenerative changes with no acute bony abnormality. Reviewed, Interpreted and Dictated by Gael Carreon MD Transcribed by Chitra Marshall Authenticated and [facility] [place] [place]
== END ==
PROVIDERS: PCP Physician Assistant; Visit Provider Orthopaedic Surgery
DX: M25.512 Pain in left shoulder (principal)
CPT/HCPCS: 73030

== ENCOUNTER → 2022-08-03 10:42 | Outpatient (CLI) | payer MEDICARE, SELFPAY | PROVIDERS: PCP Physician Assistant; Visit Provider Ophthalmology | DX: Z01.812 Encounter for preprocedural laboratory examination (principal); Z20.822 Contact with and (suspected) exposure to COVID-19 | CPT/HCPCS: C9803; U0003; U0005 ==

== ENCOUNTER 2022-08-06 07:36 | Day surgery (SDC) | payer MEDICARE, SELFPAY ==
[2022-08-01 12:36] VITALS: BMI 37.8
[2022-08-06] VITALS (8 sets, daily range): BP systolic 137–162; BP diastolic 71–93; PULSE 64–75; RESP 16–18; TEMP 36.4–36.6; O2SAT 93–96
[2022-08-06 09:21] LABS: POC Glucose,Bedside 100 (70-110)
--- NOTE | 2022-08-06 09:40 | SUR.PREOP ---
MAR showed contraindication for Phenylephrine gtts D/T allergy to Vilanterol. Discussed with Dr. Art. said ok to give as ordered.
== END 2022-08-06 10:50 | disposition home or self-care (01) ==
LOC: OR 07:39
PROVIDERS: PCP Physician Assistant; Visit Provider Ophthalmology
DX: H25.811 Combined forms of age-related cataract, right eye (principal)
CPT/HCPCS: 66984; 82962; V2632

== ENCOUNTER 2022-09-03 08:17 | Day surgery (SDC) | payer MEDICARE, SELFPAY ==
[2022-08-29 13:45] VITALS: BMI 37.9
[2022-09-03] VITALS (7 sets, daily range): BP systolic 120–157; BP diastolic 63–85; PULSE 68–80; RESP 18–20; TEMP 36.3–36.7; O2SAT 94–99
[2022-09-03 09:01] LABS: POC Glucose,Bedside 115 (70-110)
== END 2022-09-03 10:14 | disposition home or self-care (01) ==
PROVIDERS: PCP Physician Assistant; Visit Provider Ophthalmology
DX: E11.36 Type 2 diabetes mellitus with diabetic cataract (principal)
CPT/HCPCS: 66984; 82962; V2632

== ENCOUNTER → 2022-09-11 14:30 | Outpatient (CLI) | payer MEDICARE, SELFPAY ==
[2022-09-11 14:36] LABS: Basophils # 0.1 K/mm3 (0-0.2); Basophils % 0.6 % (0.1-2.0); Eosinophils # 0.3 K/mm3 (0.0-0.4); Eosinophils % 2.8 % (0.1-12.0); Lymphocytes # 3.1 K/mm3 (0.7-4.5); Lymphocytes % 29.2 % (10-50); Mean Corpuscular HGB Conc 30.6 g/dL (31.8-35.4); Mean Corpuscular Hemoglobin 29.2 pg (27.0-31.2); Mean Corpuscular Volume 95.4 fl (80-94); Mean Platelet Volume 8.8 fl (7.4-10.4); Monocytes # 0.6 K/mm3 (0.1-1.0); Monocytes % 5.9 % (1.7-9.3); Neutrophils # 6.5 K/mm3 (1.8-7.8); Neutrophils % 61.5 % (37.0-80.0); Platelet Count 272 K/mm3 (142-424); Red Blood Count 5.14 M/mm3 (4.60-6.20); White Blood Count 10.6 K/mm3 (4.8-10.8)
[2022-09-11 14:41] LABS: Alanine Aminotransferase 19 U/L (12-78); Albumin Level 4.1 g/dl (3.5-5.0); Albumin/Globulin Ratio 1.6 (1.1-1.8); Alkaline Phosphatase 96 U/L (38-126); Aspartate Amino Transferase 25 U/L (17-59); Bilirubin,Total 0.3 mg/dl (0.2-1.3); Blood Urea Nitrogen 24 mg/dl (9-20); Calcium 10.2 mg/dl (8.4-10.2); Carbon Dioxide 32 mmol/L (22.0-30.0); Chloride 99 mmol/L (98-107); Chol/HDL Ratio 3.2 (1-3.5); Cholesterol 132 mg/dl (140-200); Estimated Glomerular Filt Rate 55 ml/min (>60); GFR (African American) 66 ML/MIN (>60); Globulin 2.6 g/dL (1.3-3.2); Glucose 96 mg/dl (74-100); HDL Cholesterol 41 mg/dl (40-60); Sodium 139 mmol/L (136-145); Total Protein,Serum 6.7 g/dl (6.3-8.2); Triglycerides 126 mg/dl (30-150); VLDL Cholesterol 25 mg/dL (0-40)
[2022-09-11 14:51] LABS: Direct LDL Cholesterol 65.75 mg/dL (100-129)
[2022-09-11 15:07] LABS: Microalbumin/Creatinine Ratio 18.3
[2022-09-11 15:08] LABS: Creatinine,Urine Random 249 mg/dL (Not Estab.)
[2022-09-11 15:11] LABS: Thyroid Stimulating Hormone 3.27 uIU/mL (0.465-4.68)
[2022-09-11 17:08] LABS: Hemoglobin A1C 5.6 % (4.0-6.0)
== END ==
PROVIDERS: PCP Physician Assistant; Visit Provider Physician Assistant
DX: E11.9 Type 2 diabetes mellitus without complications (principal); I25.10 Atherosclerotic heart disease of native coronary artery without angina pectoris; Z79.84 Long term (current) use of oral hypoglycemic drugs; Z79.899 Other long term (current) drug therapy
CPT/HCPCS: 80053; 80061; 82043; 82570; 83036; 84443; 85025

== ENCOUNTER → 2023-03-03 09:08 | Outpatient (CLI) | payer MEDICARE, SELFPAY | PROVIDERS: PCP Physician Assistant; Visit Provider Specialist | DX: J43.9 Emphysema, unspecified (principal); Z72.0 Tobacco use | CPT/HCPCS: 94762 ==

== ENCOUNTER → 2023-03-10 10:02 | Outpatient (CLI) | payer MEDICARE, SELFPAY | PROVIDERS: PCP Physician Assistant; Visit Provider Physician Assistant | DX: R55 Syncope and collapse (principal) | CPT/HCPCS: 93225 ==

== ENCOUNTER → 2023-03-19 07:59 | Outpatient (CLI) | payer MEDICARE, SELFPAY ==
--- NOTE | 2023-03-19 09:07 | XR_ITS ---
FINAL REPORT CLINICAL HISTORY: cough related syncope COMPARISON: none FINDINGS: Two views of the chest were obtained. The heart size and pulmonary vascularity are within normal limits. The mediastinum is normal. No acute pulmonary abnormality is identified. There is no pneumothorax. The bony thorax is intact. IMPRESSION: No active cardiopulmonary disease. Reviewed, Interpreted and Dictated by Last Khanna III, MD Transcribed by Mónica Cabrera Authenticated and [facility]
--- NOTE | 2023-03-19 09:12 | PC.NURSE ---
PFT and 6 Minute Walk Test completed without incident. Pt given Albuterol 0.083%, per protocol, via HHN, Pt tolerated tx well.
== END ==
PROVIDERS: PCP Physician Assistant; Visit Provider Specialist
DX: I10 Essential (primary) hypertension (principal); I25.10 Atherosclerotic heart disease of native coronary artery without angina pectoris; R05.4 Cough syncope; R55 Syncope and collapse
CPT/HCPCS: 71046; 94060; 94618; 94726; 94729

== ENCOUNTER → 2023-04-01 07:20 | Outpatient (CLI) | payer MEDICARE, SELFPAY ==
--- NOTE | 2023-04-01 | CA_ITS ---
APPROVED REPORT Exam: Pharmacologic Technologist: Peggy Azar, Ht: 5 ft 6 in Wt: 243 lbs BSA: 2.17 m2 HR: 63 bpm BP: 143/70 mmHg Medical History Medications: Amlodipine,,,,, Aspirin,,,,, Gabapentin,,,,, Allopurinol,,,,, Pantoprazole,,,,, Atorvastatin,,,,, PERCOCET,,,,, TAMSULOSIN,,,,, Naproxen,,,,, Albuterol,,,,, AmiTRIPTYLINE,,,,, Finasteride,,,,, Stress Test Details Test: LEXISCAN Reason for pharmacologic stress test: physical limitation. HR Resting HR: 60 bpm Max Heart Rate (APMHR): 150 bpm Max HR Achieved: 90 bpm Target HR (85% APMHR): 128 bpm % of APMHR: 60 Recovery HR: 71 bpm BP Resting BP: 143.0/70.0 mmHg Max BP: 143.0/70.0 mmHg Recovery BP: 141.0/73.0 mmHg ECG Resting ECG: NSR, RBBB, cannot R/O old inferior CO Clinical Exercise duration: n/a min Highest Stage Achieved: Stress ECG Conclusion Symptoms: SOA. No CP. Arrhythmias/Ectopy: Rare PVC. ST-T Changes: No significant changes. Conclusion: Unremarkable Lexiscan stress. Myoview images reported separately. Test Summary REST . . . . . . . Resting REST 04:13 . . 60 . 143/ 70 . . Stage 1 01:00 . . 88 . . . . Stage 2 01:00 . . 80 . 142/ 75 . . Stage 3 01:00 . . 77 . 142/ 75 . . Stage 4 01:00 . . 69 . 137/ 79 . Stop exercise at 04:00 RECOVERY 01:00 . . 73 . . . . RECOVERY 02:00 . . 70 . 132/ 73 . . RECOVERY 03:00 . . 71 . 132/ 73 . . RECOVERY 03:36 . . 72 . 141/ 73 . . Electronically signed by : Ami Portillo, 04/02/2023 16:44:42
--- NOTE | 2023-04-01 07:20 | NM_ITS ---
APPROVED REPORT Exam: Nuclear Stress Test Indication: Syncope, CAD, HTN, DM, High cholesterol, Tobacco use, Family history Patient Location: Outpatient Stress Tech: Peggy Ann MI Tech:Elisa Schroeder, ARRT, RT (R)(N) Ht: 5 ft 6 in Wt: 240 lbs HR: 60 bpm BP: 143/70 mmHg BSA: 2.16 m2 TID: 1.15 BMI: 38.7 History: Syncope, CAD, HTN, DM, High cholesterol, Tobacco use, Family history Procedure: Patient received 0.4 mg of intravenous Lexiscan, resting heart rate 60 bpm, resting blood pressure 143/70 mmHg, with Lexiscan maximum heart rate achieved was 90 bpm which is % of the maximum predicted heart rate and blood pressure was 143/70 mmHg. With Lexiscan, patient denied any complaint of chest pain. Patient unable to lay in prone position for images, those were not performed. Cardiac Stress and Resting SPECT Images: Cardiac Stress and Resting SPECT images were obtained using technetium 99m Myoview 32.6 mCi stress and 10.72 mCi at rest. The study is technically difficult due to significant soft tissue shadowing in the raw images and inavailability of prone stress imaging. Therefore the diagnostic capacity of the study is limited. Resting and stress imaging in supine position demonstrate a medium-sized, moderate, minimally reversible perfusion defect in the inferior, inferoapical, and anterior LV rodriguez. Gated imaging demosntrates normal global LV systolic function. There is mild to moderate hypokinesis in the inferior and inferoapical LV wall. LVEF is calculated at 57% Conclusion: The study is technically difficult due to significant soft tissue shadowing in the raw images and inavailability of prone stress imaging. Therefore the diagnostic capacity of the study is limited. Medium-sized, moderate, minimally reversible perfusion defect in the inferior, inferoapical, and anterior LV rodriguez. These findings are suggestive of prior infarct with minimal golden-infarct ischemia. Gated imaging demosntrates normal global LV systolic function. There is mild to moderate hypokinesis in the inferior and inferoapical LV wall. LVEF is calculated at 57%. Compared to prior SPECT imaging from 2019, the anterior and inferior perfusion defects are new. Electronically signed by : Ami Portillo, 04/02/2023 16:54:54
--- NOTE | 2023-04-01 08:06 | CA_ITS ---
FINAL REPORT TECHNIQUE: Real-time imaging was performed of the extracranial carotid arteries in transverse and longitudinal planes with color duplex evaluation of blood flow velocity. Spectral analysis was performed. The cervicovertebral arteries were also examined. Stenosis evaluation based on elevated velocity criteria. CLINICAL HISTORY: syncope, cad, obesity FINDINGS: FINDINGS: RIGHT CAROTID: CCA PSV: 70 cm/sec ICA PSV: 92 cm/sec ECA PSV: 92 cm/sec ICA/CCA systolic flow velocity ratio: 1.3 Mild atherosclerotic plaque is noted. Narrowing is classified in the less than 50 % category. LEFT CAROTID: CCA PSV: 107 cm/sec ICA PSV: 75 cm/sec ECA PSV: 103 cm/sec ICA/CCA systolic flow velocity ratio: 0.95 Mild atherosclerotic plaque is noted. Narrowing is classified in the less than 50 % category. VERTEBRALS: Vertebral arteries are patent with antegrade flow and expected spectral waveforms. IMPRESSION: Less than 50% bilateral carotid artery stenosis. Patent vertebral arteries. Reviewed, Interpreted and Dictated by Tucker Seo MD Transcribed by María Elena Sarabia Authenticated and [facility]
--- NOTE | 2023-04-01 09:01 | HMH.ITSHM ---
Current Home Medications as stated by this patient Last Hitchcock or senior account representative. []TAMSULOSIN TADALAFIL PANTOPRAZOLE OLMESARTAN NITRO NAPROXEN HYDORCODONE GABAPENTIN FINASTERIDE ATORVASTATIN ASA AMLODIPINE AMTRIPTYLINE ALLOPURINOL ALBUTEROL
== END ==
LOC: RAD 07:20
PROVIDERS: PCP Physician Assistant; Visit Provider Physician Assistant
DX: E11.69 Type 2 diabetes mellitus with other specified complication (principal); E78.49 Other hyperlipidemia; G47.33 Obstructive sleep apnea (adult) (pediatric); I10 Essential (primary) hypertension; I25.10 Atherosclerotic heart disease of native coronary artery without angina pectoris; I25.2 Old myocardial infarction; J43.9 Emphysema, unspecified; R55 Syncope and collapse; Z95.5 Presence of coronary angioplasty implant and graft; R09.89 Other specified symptoms and signs involving the circulatory and respiratory systems; Z79.84 Long term (current) use of oral hypoglycemic drugs
CPT/HCPCS: 78452; 93017; 93306; 93880; A9502; J2785

== ENCOUNTER → 2023-04-23 08:40 | Outpatient (CLI) | payer MEDICARE, SELFPAY ==
[2023-04-23 15:31] LABS: Basophils % 0.5 % (0.1-2.0); Eosinophils # 0.3 K/mm3 (0.0-0.4); Eosinophils % 3.6 % (0.1-12.0); Hematocrit 48.2 % (42.0-52.0); Hemoglobin 14.8 g/dL (14.1-18.0); Lymphocytes # 2.4 K/mm3 (0.7-4.5); Lymphocytes % 29.4 % (10-50); Mean Corpuscular HGB Conc 30.6 g/dL (31.8-35.4); Mean Corpuscular Hemoglobin 27.9 pg (27.0-31.2); Mean Corpuscular Volume 91.2 fl (80-94); Mean Platelet Volume 8.6 fl (7.4-10.4); Monocytes # 0.5 K/mm3 (0.1-1.0); Monocytes % 5.9 % (1.7-9.3); Neutrophils # 4.9 K/mm3 (1.8-7.8); Neutrophils % 60.7 % (37.0-80.0); Platelet Count 211 K/mm3 (142-424); Red Blood Count 5.29 M/mm3 (4.60-6.20); Red Cell Distribution Width 16.9 % (11.5-17.5); White Blood Count 8.1 K/mm3 (4.8-10.8)
[2023-04-23 15:40] LABS: Alanine Aminotransferase 20 U/L (12-78); Albumin Level 4.2 g/dl (3.5-5.0); Albumin/Globulin Ratio 1.6 (1.1-1.8); Alkaline Phosphatase 76 U/L (38-126); Aspartate Amino Transferase 26 U/L (17-59); Bilirubin,Total 0.4 mg/dl (0.2-1.3); Blood Urea Nitrogen 25 mg/dl (9-20); Calcium 9.3 mg/dl (8.4-10.2); Carbon Dioxide 30 mmol/L (22.0-30.0); Chloride 100 mmol/L (98-107); Cholesterol 119 mg/dl (140-200); Estimated Glomerular Filt Rate 66 ml/min (>60); GFR (African American) 80 ML/MIN (>60); Globulin 2.7 g/dL (1.3-3.2); Glucose 130 mg/dl (74-100); HDL Cholesterol 30 mg/dl (40-60); Sodium 141 mmol/L (136-145); Total Protein,Serum 6.9 g/dl (6.3-8.2); Triglycerides 177 mg/dl (30-150); VLDL Cholesterol 35 mg/dL (0-40)
[2023-04-23 15:44] LABS: Hemoglobin A1C 5.7 % (4.0-6.0)
[2023-04-23 15:50] LABS: Direct LDL Cholesterol 65.92 mg/dL (100-129)
[2023-04-23 15:56] LABS: T4 (Thyroxine) 7.2 ug/dl (5.53-11.0)
[2023-04-23 16:09] LABS: Prostate Specific Ag Screen 0.7 ng/ml (0.0-4.0); Thyroid Stimulating Hormone 2.97 uIU/mL (0.465-4.68)
== END ==
PROVIDERS: PCP Physician Assistant; Visit Provider Physician Assistant
DX: E11.69 Type 2 diabetes mellitus with other specified complication (principal); Z12.5 Encounter for screening for malignant neoplasm of prostate; I25.10 Atherosclerotic heart disease of native coronary artery without angina pectoris; G89.29 Other chronic pain; R51.9 Headache, unspecified; Z79.84 Long term (current) use of oral hypoglycemic drugs
CPT/HCPCS: 80053; 80061; 83036; 84436; 84443; 85025; G0103

== ENCOUNTER → 2023-05-08 14:17 | Outpatient (CLI) | payer MEDICARE, SELFPAY ==
--- NOTE | 2023-05-08 14:17 | CT_ITS ---
FINAL REPORT CLINICAL HISTORY: lung cancer screening, 1 ppd x 60 years COMPARISON: 04/22/2022 FINDINGS: CT CHEST LOW DOSE SCREENING HISTORY: Screening exam for lung cancer. Current smoker, 30 pack year smoking history DOSE: CTDIvol: 2.9 mGy, DLP: 100.29 mGy*cm COMPARISON: 04/22/2022 . TECHNIQUE: Axial CT without IV contrast administration using low dose protocol FINDINGS: There are mild vascular calcifications present. There are mild changes of emphysema and mild scarring throughout. There is a 1 mm nodule near the left major fissure, stable since the prior CT. There is a new 5 mm right lower lobe nodule seen best on axial image #46. . There is another new 4 mm right lower lobe nodule seen best on axial image #43. No pleural or pericardial effusion is seen . No adenopathy is present . IMPRESSION: Two new nodules are seen since the prior CT exam of March 2022 as described above. LUNG RADS CATEGORY 3 RECOMMENDATION: 6 month LDCT follow up Reviewed, Interpreted and Dictated by Tucker Seo MD Transcribed by Leah Ruiz Authenticated and [facility]
== END ==
PROVIDERS: PCP Physician Assistant; Visit Provider Physician Assistant
DX: Z87.891 Personal history of nicotine dependence (principal); Z12.2 Encounter for screening for malignant neoplasm of respiratory organs; R06.02 Shortness of breath
CPT/HCPCS: 71271; 94762

== ENCOUNTER → 2023-06-03 08:12 | Outpatient (CLI) | payer MEDICARE, SELFPAY | PROVIDERS: PCP Physician Assistant; Visit Provider Specialist | DX: G47.33 Obstructive sleep apnea (adult) (pediatric) (principal); G47.34 Idiopathic sleep related nonobstructive alveolar hypoventilation; R06.83 Snoring | CPT/HCPCS: G0399 ==

== ENCOUNTER 2023-06-09 08:13 | Day surgery (SDC) | payer MEDICARE, SELFPAY ==
[2023-06-09] VITALS (12 sets, daily range): BP systolic 112–171; BP diastolic 65–98; PULSE 59–84; RESP 16–20; TEMP 36.6; O2SAT 91–100; BMI 39.2
--- NOTE | 2023-06-09 07:08 | IR_ITS ---
APPROVED REPORT Patient Location: Outpatient PROCEDURES Left heart catheterization Selective coronary angiogram INDICATION Angina pectoris, Abnormal Myoview, Informed consent was obtained prior to the procedure. COMPLICATIONS None Estimated Blood Loss: Less than 10 mls TECHNIQUE One percent lidocaine used to anesthetize the right anterior aspect of the wrist. The right radial artery was accessed via the Seldinger technique. A 6 Romansh sheath was placed in the right radial artery. 2.5 mg of Verapamil, 800 mcg of nitroglycerin, 1mg Lidocaine and 5000 U Heparin were given through the arterial sheath. The papa catheter was also used to perform left heart catheterization and selective coronary angiogram. At the end of the procedure the sheath was removed good hemostasis was achieved using Traclet band, patient was transferred to the postop holding area in stable condition. ANGIOGRAPHIC RESULTS The left main artery Normal The left anterior descending artery Mild proximal 10 to 20% luminal irregularities The circumflex artery Nondominant mild 10% luminal irregularities The right coronary artery Dominant with diffuse 10 to 20% luminal irregularities The SANTOS ventriculogram reveals Not performed The left ventricular end-diastolic pressure Elevated at 22 mmHg IMPRESSION Mild nonflow limiting coronary disease Elevated LVEDP consistent with diastolic dysfunction PLAN 1. Continue medical management for coronary artery disease and diastolic dysfunction 2. Recommend sleep study if not already in the chart Electronically signed by : Wagner Bernardo MD 06/09/2023 10:21:43
[2023-06-09 08:51] LABS: Basophils # 0.1 K/mm3 (0-0.2); Basophils % 0.8 % (0.1-2.0); Eosinophils # 0.1 K/mm3 (0.0-0.4); Eosinophils % 1.5 % (0.1-12.0); Hematocrit 46.7 % (42.0-52.0); Hemoglobin 14.3 g/dL (14.1-18.0); Lymphocytes # 2.3 K/mm3 (0.7-4.5); Lymphocytes % 38.1 % (10-50); Mean Corpuscular HGB Conc 30.7 g/dL (31.8-35.4); Mean Corpuscular Hemoglobin 27.5 pg (27.0-31.2); Mean Corpuscular Volume 89.7 fl (80-94); Monocytes # 0.6 K/mm3 (0.1-1.0); Monocytes % 9.4 % (1.7-9.3); Neutrophils % 50.2 % (37.0-80.0); Platelet Count 147 K/mm3 (142-424); Red Blood Count 5.21 M/mm3 (4.60-6.20); Red Cell Distribution Width 16.7 % (11.5-17.5)
[2023-06-09 08:58] LABS: Anion Gap 11.8 mEq/L (5-15); Blood Urea Nitrogen 24 mg/dl (9-20); Calcium 8.8 mg/dl (8.4-10.2); Carbon Dioxide 29 mmol/L (22.0-30.0); Chloride 104 mmol/L (98-107); Creatinine Clearance Estimated 71 mL/min (50-200); Estimated Glomerular Filt Rate 46 ml/min (>60); GFR (African American) 56 ML/MIN (>60); Glucose 93 mg/dl (74-100); Potassium 4.8 mmoL/L (3.5-5.1); Sodium 140 mmol/L (136-145)
== END 2023-06-09 13:23 | disposition home or self-care (01) ==
PROVIDERS: PCP Physician Assistant; Visit Provider Internal Medicine
DX: E11.9 Type 2 diabetes mellitus without complications (principal); I25.10 Atherosclerotic heart disease of native coronary artery without angina pectoris; R94.30 Abnormal result of cardiovascular function study, unspecified; F17.210 Nicotine dependence, cigarettes, uncomplicated; I10 Essential (primary) hypertension; Z79.84 Long term (current) use of oral hypoglycemic drugs; Z79.899 Other long term (current) drug therapy
CPT/HCPCS: 80048; 85025; 93458; 99152; C1725; C1760; C1769; J1644; Q9967

== ENCOUNTER → 2023-06-25 09:12 | Outpatient (CLI) | payer MEDICARE, SELFPAY ==
[2023-06-25 09:31] LABS: ABG HCO3 27.8 mmhg (22.0-26.0); ABG Oxygen Saturation 94 % (90-100); ABG PCO2 46.1 mmhg (35.0-45.0); ABG PO2 60.6 mmhg (80-100); ABG TCO2 29.2 mmhg (23-27)
[2023-06-25 10:19] LABS: Allen's Test ACCEPTABLE; Oxygen ROOM AIR %; Source R RADIAL
== END ==
PROVIDERS: PCP Physician Assistant; Visit Provider Internal Medicine Pulmonary Disease
DX: J43.9 Emphysema, unspecified (principal)
CPT/HCPCS: 82803

== ENCOUNTER → 2023-07-14 15:37 | Outpatient (CLI) | payer MEDICARE, SELFPAY ==
[2023-07-14 19:38] LABS: Alanine Aminotransferase 18 U/L (12-78); Albumin Level 3.9 g/dl (3.5-5.0); Albumin/Globulin Ratio 1.4 (1.1-1.8); Alkaline Phosphatase 73 U/L (38-126); Anion Gap 14.1 mEq/L (5-15); Aspartate Amino Transferase 25 U/L (17-59); Bilirubin,Total 0.3 mg/dl (0.2-1.3); Blood Urea Nitrogen 20 mg/dl (9-20); Calcium 9.3 mg/dl (8.4-10.2); Carbon Dioxide 29 mmol/L (22.0-30.0); Chloride 103 mmol/L (98-107); Estimated Glomerular Filt Rate 40 ml/min (>60); GFR (African American) 48 ML/MIN (>60); Globulin 2.8 g/dL (1.3-3.2); Glucose 81 mg/dl (74-100); Potassium 5.1 mmoL/L (3.5-5.1); Sodium 141 mmol/L (136-145); Total Protein,Serum 6.7 g/dl (6.3-8.2)
== END ==
PROVIDERS: PCP Emergency Medicine; Visit Provider Emergency Medicine
DX: E78.5 Hyperlipidemia, unspecified (principal)
CPT/HCPCS: 80053

== ENCOUNTER → 2023-08-18 09:55 | Outpatient (CLI) | payer MEDICARE, SELFPAY ==
[2023-08-18 20:19] LABS: Basophils % 0.4 % (0.1-2.0); Eosinophils # 0.3 K/mm3 (0.0-0.4); Eosinophils % 3.6 % (0.1-12.0); Hematocrit 42.5 % (42.0-52.0); Hemoglobin 13.9 g/dL (14.1-18.0); Lymphocytes # 2.2 K/mm3 (0.7-4.5); Lymphocytes % 23.8 % (10-50); Mean Corpuscular HGB Conc 32.7 g/dL (31.8-35.4); Mean Corpuscular Volume 91.8 fl (80-94); Mean Platelet Volume 9.1 fl (7.4-10.4); Monocytes # 0.6 K/mm3 (0.1-1.0); Monocytes % 6.6 % (1.7-9.3); Neutrophils % 65.6 % (37.0-80.0); Platelet Count 281 K/mm3 (142-424); Red Blood Count 4.63 M/mm3 (4.60-6.20); Red Cell Distribution Width 16.5 % (11.5-17.5); White Blood Count 9.1 K/mm3 (4.8-10.8)
[2023-08-18 20:30] LABS: Anion Gap 16.8 mEq/L (5-15); Blood Urea Nitrogen 30 mg/dl (9-20); Calcium 9.8 mg/dl (8.4-10.2); Carbon Dioxide 25 mmol/L (22.0-30.0); Chloride 102 mmol/L (98-107); Estimated Glomerular Filt Rate 31 ml/min (>60); GFR (African American) 38 ML/MIN (>60); Glucose 116 mg/dl (74-100); Potassium 4.8 mmoL/L (3.5-5.1); Sodium 139 mmol/L (136-145)
[2023-08-18 21:01] LABS: Hemoglobin A1C 5.5 % (4.0-6.0)
== END ==
PROVIDERS: PCP Physician Assistant; Visit Provider Physician Assistant
DX: E11.69 Type 2 diabetes mellitus with other specified complication (principal); I25.2 Old myocardial infarction; I25.10 Atherosclerotic heart disease of native coronary artery without angina pectoris; Z79.84 Long term (current) use of oral hypoglycemic drugs
CPT/HCPCS: 80048; 83036; 85025

== ENCOUNTER → 2023-10-08 14:41 | Outpatient (CLI) | payer MEDICARE, SELFPAY ==
[2023-10-08 12:43] LABS: Basophils # 0.1 K/mm3 (0-0.2); Basophils % 0.5 % (0.1-2.0); Eosinophils # 0.3 K/mm3 (0.0-0.4); Hematocrit 43.2 % (42.0-52.0); Lymphocytes # 2.8 K/mm3 (0.7-4.5); Mean Corpuscular HGB Conc 32.4 g/dL (31.8-35.4); Mean Corpuscular Hemoglobin 29.2 pg (27.0-31.2); Mean Corpuscular Volume 90.2 fl (80-94); Mean Platelet Volume 7.8 fl (7.4-10.4); Monocytes # 0.6 K/mm3 (0.1-1.0); Neutrophils # 5.7 K/mm3 (1.8-7.8); Neutrophils % 60.4 % (37.0-80.0); Platelet Count 243 K/mm3 (142-424); Red Blood Count 4.79 M/mm3 (4.60-6.20); Red Cell Distribution Width 16.1 % (11.5-17.5); White Blood Count 9.4 K/mm3 (4.8-10.8)
[2023-10-08 12:52] LABS: Chloride 103 mmol/L (98-107); Potassium 5.4 mmoL/L (3.5-5.1); Sodium 138 mmol/L (136-145)
[2023-10-08 12:54] LABS: Blood Urea Nitrogen 27 mg/dl (9-20); Estimated Glomerular Filt Rate 27 ml/min (>60); GFR (African American) 33 ML/MIN (>60)
[2023-10-08 12:55] LABS: Alanine Aminotransferase 14 U/L (12-78); Albumin Level 4.6 g/dl (3.5-5.0); Albumin/Globulin Ratio 1.7 (1.1-1.8); Alkaline Phosphatase 75 U/L (38-126); Anion Gap 11.4 mEq/L (5-15); Aspartate Amino Transferase 20 U/L (17-59); Bilirubin,Total 0.4 mg/dl (0.2-1.3); Calcium 9.4 mg/dl (8.4-10.2); Carbon Dioxide 29 mmol/L (22.0-30.0); Cholesterol 124 mg/dl (140-200); Globulin 2.7 g/dL (1.3-3.2); Glucose 92 mg/dl (74-100); Total Protein,Serum 7.3 g/dl (6.3-8.2); Triglycerides 124 mg/dl (30-150); VLDL Cholesterol 25 mg/dL (0-40)
[2023-10-08 12:56] LABS: Chol/HDL Ratio 4.1 (1-3.5); HDL Cholesterol 30 mg/dl (40-60)
[2023-10-08 12:58] LABS: Creatinine,Urine Random 119 mg/dL (Not Estab.)
[2023-10-08 13:03] LABS: Barbiturates Screen,Urine Negative ng/ml (<200); Microalbumin/Creatinine Ratio 24.2
[2023-10-08 13:04] LABS: Benzodiazepines Screen,Urine Negative ng/ml (<200)
[2023-10-08 13:05] LABS: Amphetamine/Metha Screen,Urine Negative ng/ml (<1000)
[2023-10-08 13:06] LABS: Direct LDL Cholesterol 71.54 mg/dL (100-129)
[2023-10-08 13:07] LABS: Methadone Screen,Urine Negative ng/ml (<300)
[2023-10-08 13:08] LABS: Cannabinoid Screen,Urine Negative ng/ml (<50); Cocaine Screen,Urine Negative ng/ml (<300)
[2023-10-08 13:11] LABS: 25-OH Vitamin D, Total 58.1 ng/mL (30-100); Opiate Screen,Urine Positive ng/ml (<300)
[2023-10-08 13:12] LABS: Phencyclidine Screen,Urine Negative ng/ml (<25)
[2023-10-08 13:27] LABS: Thyroid Stimulating Hormone 1.92 uIU/mL (0.465-4.68)
[2023-10-08 13:55] LABS: Hemoglobin A1C 5.5 % (4.0-6.0)
== END ==
PROVIDERS: PCP Physician Assistant; Visit Provider Physician Assistant
DX: M54.2 Cervicalgia (principal); E55.9 Vitamin D deficiency, unspecified; N28.9 Disorder of kidney and ureter, unspecified; E11.69 Type 2 diabetes mellitus with other specified complication; I25.10 Atherosclerotic heart disease of native coronary artery without angina pectoris; Z79.84 Long term (current) use of oral hypoglycemic drugs
CPT/HCPCS: 80053; 80061; 80305; 82043; 82306; 82570; 83036; 84443; 85025

== ENCOUNTER 2024-01-06 12:44 | Outpatient (CLI) | payer MEDICARE, SELFPAY ==
[2024-01-06 12:35] LABS: Microscopic, Urine URINE MICROSCOPIC (MICROSCOPIC)
[2024-01-06 12:53] LABS: Appearance,Urine CLEAR (Clear); Basophils % 0.4 % (0.1-2.0); Bilirubin,Urine Negative (Negative); Blood, Urine Negative (Negative); Color,Urine YELLOW (Yellow); Eosinophils # 0.3 K/mm3 (0.0-0.4); Glucose,Urine (UA) Negative (Negative); Hematocrit 45.7 % (42.0-52.0); Hemoglobin 14.4 g/dL (14.1-18.0); Ketones,Urine Negative (Negative); Leukocyte Esterase,Urine Negative (Negative); Lymphocytes % 31.6 % (10-50); Mean Corpuscular HGB Conc 31.6 g/dL (31.8-35.4); Mean Corpuscular Hemoglobin 29.7 pg (27.0-31.2); Mean Platelet Volume 8.6 fl (7.4-10.4); Monocytes # 0.6 K/mm3 (0.1-1.0); Monocytes % 6.2 % (1.7-9.3); Neutrophils # 5.6 K/mm3 (1.8-7.8); Neutrophils % 58.8 % (37.0-80.0); Nitrate,Urine Negative (Negative); Platelet Count 244 K/mm3 (142-424); Protein,Urine Negative (Negative); Red Blood Count 4.87 M/mm3 (4.60-6.20); Red Cell Distribution Width 16.6 % (11.5-17.5); Specific Gravity, Urine 1.015 (1.005-1.030); Urobilinogen,Urine 0.2 EU/dl (0.2); White Blood Count 9.6 K/mm3 (4.8-10.8)
[2024-01-06 13:08] LABS: Microalbumin/Creatinine Ratio 23.9
[2024-01-06 13:09] LABS: Alanine Aminotransferase 12 U/L (12-78); Albumin Level 4.2 g/dl (3.5-5.0); Albumin/Globulin Ratio 1.6 (1.1-1.8); Alkaline Phosphatase 83 U/L (38-126); Anion Gap 10.3 mEq/L (5-15); Aspartate Amino Transferase 21 U/L (17-59); Bilirubin,Total 0.3 mg/dl (0.2-1.3); Blood Urea Nitrogen 28 mg/dl (9-20); Calcium 9.6 mg/dl (8.4-10.2); Carbon Dioxide 29 mmol/L (22.0-30.0); Chloride 105 mmol/L (98-107); Estimated Glomerular Filt Rate 33 ml/min (>60); GFR (African American) 40 ML/MIN (>60); Globulin 2.6 g/dL (1.3-3.2); Glucose 92 mg/dl (74-100); Potassium 5.3 mmoL/L (3.5-5.1); Sodium 139 mmol/L (136-145); Total Protein,Serum 6.8 g/dl (6.3-8.2); Uric Acid 3.9 mg/dl (3.5-8.5)
[2024-01-06 13:19] LABS: Intact Parathyroid Hormone 71.5 pg/mL (7.5-53.5)
[2024-01-06 13:22] LABS: Creatinine,Urine Random 108 mg/dL (Not Estab.)
[2024-01-06 13:29] LABS: 25-OH Vitamin D, Total 47.4 ng/mL (30-100)
[2024-01-06 14:52] LABS: Bacteria,Urine Trace /lpf; Squamous Epithelial Cell,Urine Occasional #/hpf (0-5)
== END 2024-01-06 23:59 ==
LOC: LAB.DROPOF 12:45
PROVIDERS: PCP Physician Assistant; Visit Provider Physician Assistant
DX: N18.30 Chronic kidney disease, stage 3 unspecified (principal); R53.83 Other fatigue; E55.9 Vitamin D deficiency, unspecified; Z68.35 Body mass index [BMI] 35.0-35.9, adult
CPT/HCPCS: 80053; 81001; 82043; 82306; 82570; 83970; 84550; 85025

== ENCOUNTER 2024-02-12 12:06 | Outpatient (CLI) | payer MEDICARE, SELFPAY ==
[2024-02-12 17:59] LABS: MANUAL DIFFERENTIAL MANUAL DIFFERENTIAL (MANUAL DIFF); Microscopic, Urine URINE MICROSCOPIC (MICROSCOPIC)
[2024-02-12 18:19] LABS: Basophils # 0.1 K/mm3 (0-0.2); Basophils % 0.6 % (0.1-2.0); Eosinophils # 0.3 K/mm3 (0.0-0.4); Eosinophils % 2.8 % (0.1-12.0); Hematocrit 45.6 % (42.0-52.0); Hemoglobin 14.4 g/dL (14.1-18.0); Lymphocytes # 2.6 K/mm3 (0.7-4.5); Lymphocytes % 27.3 % (10-50); Mean Corpuscular HGB Conc 31.7 g/dL (31.8-35.4); Mean Corpuscular Hemoglobin 29.9 pg (27.0-31.2); Mean Corpuscular Volume 94.5 fl (80-94); Mean Platelet Volume 9.6 fl (7.4-10.4); Monocytes # 0.6 K/mm3 (0.1-1.0); Monocytes % 6.1 % (1.7-9.3); Neutrophils % 63.2 % (37.0-80.0); Platelet Count 261 K/mm3 (142-424); Red Blood Count 4.82 M/mm3 (4.60-6.20); Red Cell Distribution Width 16.6 % (11.5-17.5); White Blood Count 9.5 K/mm3 (4.8-10.8)
[2024-02-12 18:22] LABS: Alanine Aminotransferase 13 U/L (12-78); Albumin Level 4.1 g/dl (3.5-5.0); Albumin/Globulin Ratio 1.5 (1.1-1.8); Alkaline Phosphatase 82 U/L (38-126); Anion Gap 12.1 mEq/L (5-15); Aspartate Amino Transferase 22 U/L (17-59); Bilirubin,Total 0.4 mg/dl (0.2-1.3); Blood Urea Nitrogen 25 mg/dl (9-20); Calcium 9.7 mg/dl (8.4-10.2); Carbon Dioxide 28 mmol/L (22.0-30.0); Chloride 105 mmol/L (98-107); Estimated Glomerular Filt Rate 37 ml/min (>60); GFR (African American) 45 ML/MIN (>60); Globulin 2.7 g/dL (1.3-3.2); Glucose 99 mg/dl (74-100); Potassium 5.1 mmoL/L (3.5-5.1); Sodium 140 mmol/L (136-145); Total Protein,Serum 6.8 g/dl (6.3-8.2); Uric Acid 4.3 mg/dl (3.5-8.5)
[2024-02-12 18:32] LABS: Appearance,Urine CLEAR (Clear); Bilirubin,Urine Negative (Negative); Blood, Urine Negative (Negative); Color,Urine YELLOW (Yellow); Glucose,Urine (UA) Negative (Negative); Ketones,Urine Negative (Negative); Leukocyte Esterase,Urine Negative (Negative); Nitrate,Urine Negative (Negative); Protein,Urine Negative (Negative); Specific Gravity, Urine 1.015 (1.005-1.030); Urobilinogen,Urine 0.2 EU/dl (0.2)
[2024-02-12 18:40] LABS: Hemoglobin A1C 5.3 % (4.0-6.0)
[2024-02-12 18:57] LABS: Creatinine,Urine Random 140 mg/dL (Not Estab.)
[2024-02-12 19:18] LABS: Anisocytosis 1+; Lymphocytes % 28 % (10-50); Monocytes % 5 % (2-9); Neutrophils % 67 % (42-76); Platelet Estimate Normal; Total Cells Counted 100
[2024-02-12 19:19] LABS: Hypochromasia 3+
[2024-02-12 20:16] LABS: Squamous Epithelial Cell,Urine Occasional #/hpf (0-5)
== END 2024-02-12 23:59 | disposition home or self-care (01) ==
LOC: LAB.DROPOF 02-13 12:07
PROVIDERS: PCP Physician Assistant; Visit Provider Physician Assistant
DX: N28.9 Disorder of kidney and ureter, unspecified (principal); E11.9 Type 2 diabetes mellitus without complications; R80.9 Proteinuria, unspecified
CPT/HCPCS: 80053; 81001; 82570; 83036; 84156; 84550; 85007; 85014; 85018; 85048; 85049

== ENCOUNTER 2024-02-23 13:35 | Outpatient (CLI) | payer MEDICARE, SELFPAY ==
--- NOTE | 2024-02-23 13:42 | CT_ITS ---
FINAL REPORT TECHNIQUE: Axial images through the abdomen and pelvis were performed without contrast.This study was performed with techniques to keep radiation doses as low as reasonably achievable, (ALARA). Individualized dose reduction techniques using automated exposure control or adjustment of mA and/or kV according to the patient's size were employed. CLINICAL HISTORY: HTN,TYPE 2 DIABETES,ACUTE KIDNEY FAILURE FINDINGS: ABDOMEN: The lung bases are clear. The heart size is normal. Limited images of the liver are unremarkable. The spleen and gallbladder are normal. No adrenal mass is identified. The aorta is normal in caliber. There is no significant free fluid or adenopathy. There is moderate right hydroureteronephrosis. Obstruction is secondary to a mid right ureteral stone measuring 14 x 10 mm. There is no left-sided stone or hydronephrosis. Bowel is unremarkable. PELVIS: The appendix is normal. Prostate is enlarged. The urinary bladder is unremarkable. There is no significant free fluid or adenopathy. IMPRESSION: Large mid right ureteral stone resulting in high-grade urinary tract obstruction. Reviewed, Interpreted and Dictated by Tucker Seo MD Transcribed by Coty Ruby Authenticated and [facility]
== END 2024-02-23 23:59 | disposition home or self-care (01) ==
LOC: RAD 13:37
PROVIDERS: PCP Physician Assistant; Visit Provider Internal Medicine Nephrology
DX: N13.0 Hydronephrosis with ureteropelvic junction obstruction (principal); N13.4 Hydroureter; N17.9 Acute kidney failure, unspecified; I10 Essential (primary) hypertension; E78.5 Hyperlipidemia, unspecified; E11.9 Type 2 diabetes mellitus without complications
CPT/HCPCS: 74176

== ENCOUNTER 2024-03-29 10:41 | Outpatient (CLI) | payer MEDICARE, SELFPAY | END 2024-03-29 23:59 | disposition home or self-care (01) | LOC: LAB.DROPOF 03-30 10:42 | PROVIDERS: PCP Urology; Visit Provider Urology | DX: N20.1 Calculus of ureter (principal) | CPT/HCPCS: 87086 ==

== ENCOUNTER 2024-06-11 16:11 | Outpatient (CLI) | payer MEDICARE, SELFPAY ==
--- NOTE | 2024-06-11 16:12 | MR_ITS ---
FINAL REPORT CLINICAL HISTORY: left shoulder pain COMPARISON: None FINDINGS: Multi planar MR imaging of the left shoulder was performed. There is heterogeneous signal of the distal supraspinatus tendon consistent with tendinosis and intrasubstance degeneration. There is no abnormal fluid in the subacromial/subdeltoid bursa. The anterior and posterior glenoid carolyn appear intact. The biceps tendon appears intact. There are cysts present in the greater trochanter of the humerus, likely degenerative. There is mild hypertrophic change of the acromioclavicular joint, with an 8 mm degenerative subchondral cyst in the distal clavicle. There is a synovial cyst at the superior margin of the acromioclavicular joint, measuring 7 mm in size. IMPRESSION: Heterogeneous signal of the distal supraspinatus tendon consistent with tendinosis and intrasubstance degeneration. Degenerative change of the acromioclavicular joint as described, within 8 mm degenerative subchondral cyst in the distal clavicle, and a synovial cyst at the superior margin of the acromioclavicular joint. Reviewed, Interpreted and Dictated by Gael Carreon MD Transcribed by Leah Ruiz Authenticated and [facility]
== END 2024-06-11 23:59 | disposition home or self-care (01) ==
LOC: RAD 16:12
PROVIDERS: PCP Physician Assistant; Visit Provider Physician Assistant
DX: M25.512 Pain in left shoulder (principal)
CPT/HCPCS: 73221

== ENCOUNTER 2024-06-21 08:29 | Outpatient (CLI) | payer MEDICARE, SELFPAY ==
--- NOTE | 2024-06-21 08:36 | XR_ITS ---
FINAL REPORT CLINICAL HISTORY: Left shoulder pain COMPARISON: None FINDINGS: LEFT SHOULDER 3 views of the left shoulder were obtained. There is no acute fracture or dislocation. Visualized joint spaces are normally aligned. Soft tissues are unremarkable. IMPRESSION: No acute bony abnormality. Reviewed, Interpreted and Dictated by Gael Carreon MD Transcribed by Mónica Cabrera Authenticated and . [facility]
== END 2024-06-21 23:59 | disposition home or self-care (01) ==
LOC: RAD 08:31
PROVIDERS: PCP Physician Assistant; Visit Provider Physician Assistant
DX: M25.512 Pain in left shoulder (principal)
CPT/HCPCS: 73030

== ENCOUNTER 2024-08-16 10:53 | Outpatient (CLI) | payer MEDICARE, SELFPAY ==
[2024-08-16 19:24] LABS: Alanine Aminotransferase 12 U/L (12-78); Albumin/Globulin Ratio 1.5 (1.1-1.8); Alkaline Phosphatase 69 U/L (38-126); Aspartate Amino Transferase 19 U/L (17-59); Bilirubin,Total 0.5 mg/dl (0.2-1.3); Blood Urea Nitrogen 29 mg/dl (9-20); Calcium 9.3 mg/dl (8.4-10.2); Carbon Dioxide 29 mmol/L (22.0-30.0); Chloride 108 mmol/L (98-107); Chol/HDL Ratio 2.9 (1-3.5); Cholesterol 129 mg/dl (140-200); Estimated Glomerular Filt Rate 40 ml/min (>60); GFR (African American) 48 ML/MIN (>60); Globulin 2.6 g/dL (1.3-3.2); Glucose 87 mg/dl (74-100); HDL Cholesterol 44 mg/dl (40-60); Sodium 140 mmol/L (136-145); Total Protein,Serum 6.6 g/dl (6.3-8.2); Triglycerides 86 mg/dl (30-150); Uric Acid 3.9 mg/dl (3.5-8.5); VLDL Cholesterol 17 mg/dL (0-40)
[2024-08-16 19:33] LABS: Hemoglobin A1C 5.3 % (4.0-6.0)
[2024-08-16 19:35] LABS: Direct LDL Cholesterol 64.09 mg/dL (100-129)
[2024-08-16 19:52] LABS: Prostate Specific Ag Screen 0.8 ng/ml (0.0-4.0)
== END 2024-08-16 23:59 | disposition home or self-care (01) ==
LOC: LAB.DROPOF 08-17 10:56
PROVIDERS: PCP Family Medicine; Visit Provider Family Medicine
DX: I10 Essential (primary) hypertension (principal); E11.9 Type 2 diabetes mellitus without complications; E78.5 Hyperlipidemia, unspecified; Z12.5 Encounter for screening for malignant neoplasm of prostate
CPT/HCPCS: 80053; 80061; 83036; 84550; G0103

== ENCOUNTER 2024-08-27 08:43 | Outpatient (CLI) | payer MEDICARE, SELFPAY ==
--- NOTE | 2024-08-27 08:44 | CT_ITS ---
FINAL REPORT TECHNIQUE: Axial images were obtained from the lung apex to the mid abdomen by computed tomography. This study was performed with techniques to keep radiation doses as low as reasonably achievable (ALARA). Individualized dose reduction techniques using automated exposure control or adjustment of mA and/or kV according to the patient's size were employed. CLINICAL HISTORY: .1 pack per day x 50 yrs, copd COMPARISON: 05/08/2023 FINDINGS: CHEST CT LOW DOSE CTDI vol (mGy): 2.90 DLP (mGy-cm): 100.29 There is no axillary adenopathy. There is no hilar or mediastinal adenopathy. The heart is normal in size. There is mild coronary artery calcification. There is no pericardial or pleural effusion. Previously identified right lower lobe nodules are along the longer seen. There is a new, 8 mm right upper lobe nodule well-seen on series 3, image 19. Limited images of the upper abdomen are unremarkable. IMPRESSION: New right upper lobe nodule measures 8 mm. Lung RADS category 4B. Recommend PET CT follow-up. Reviewed, Interpreted and Dictated by Last Khanna III, MD Transcribed by Lisy Dobbs Authenticated and [facility]
== END 2024-08-27 23:59 | disposition home or self-care (01) ==
LOC: RAD 08:44
PROVIDERS: PCP Family Medicine; Visit Provider Family Medicine
DX: F17.210 Nicotine dependence, cigarettes, uncomplicated (principal)
CPT/HCPCS: 71271

== ENCOUNTER 2024-11-16 18:36 | Outpatient (CLI) | payer MEDICARE, SELFPAY ==
[2024-11-16 19:10] LABS: Hemoglobin A1C 5.5 % (4.0-6.0)
[2024-11-16 19:27] LABS: Albumin Level 4.4 g/dl (3.5-5.0); Chloride 102 mmol/L (98-107); Potassium 4.8 mmoL/L (3.5-5.1); Sodium 137 mmol/L (136-145)
[2024-11-16 19:29] LABS: Blood Urea Nitrogen 30 mg/dl (9-20); Estimated Glomerular Filt Rate 40 ml/min (>60); GFR (African American) 48 ML/MIN (>60)
[2024-11-16 19:30] LABS: Alanine Aminotransferase 16 U/L (12-78); Albumin/Globulin Ratio 1.8 (1.1-1.8); Alkaline Phosphatase 78 U/L (38-126); Anion Gap 11.8 mEq/L (5-15); Aspartate Amino Transferase 24 U/L (17-59); Bilirubin,Total 0.4 mg/dl (0.2-1.3); Calcium 9.4 mg/dl (8.4-10.2); Carbon Dioxide 28 mmol/L (22.0-30.0); Chol/HDL Ratio 3.6 (1-3.5); Cholesterol 130 mg/dl (140-200); Globulin 2.5 g/dL (1.3-3.2); Glucose 69 mg/dl (74-100); HDL Cholesterol 36 mg/dl (40-60); Total Protein,Serum 6.9 g/dl (6.3-8.2); Triglycerides 131 mg/dl (30-150); VLDL Cholesterol 26 mg/dL (0-40)
[2024-11-16 19:40] LABS: Uric Acid 4.4 mg/dl (3.5-8.5)
[2024-11-16 19:41] LABS: Direct LDL Cholesterol 69.46 mg/dL (100-129)
== END 2024-11-16 23:59 | disposition home or self-care (01) ==
LOC: LAB.DROPOF 18:36
PROVIDERS: PCP Family Medicine; Visit Provider Family Medicine
DX: M10.9 Gout, unspecified (principal); E78.5 Hyperlipidemia, unspecified; E11.69 Type 2 diabetes mellitus with other specified complication
CPT/HCPCS: 80053; 80061; 83036; 84550

== ENCOUNTER 2024-11-30 12:33 | Outpatient (CLI) | payer MEDICARE, SELFPAY ==
--- NOTE | 2024-11-30 12:33 | CT_ITS ---
FINAL REPORT TECHNIQUE: Axial images were obtained from the lung apex to the mid abdomen by computed tomography. Sagittal and coronal reformatted images were obtained. This study was performed with techniques to keep radiation doses as low as reasonably achievable, (ALARA). Individualized dose reduction techniques using automated exposure control or adjustment of mA and/or kV according to the patient's size were employed. CLINICAL HISTORY: 3-month follow-up lung nodule COMPARISON: 08/27/2024 FINDINGS: There are small scattered mediastinal lymph nodes. No axillary mass or adenopathy is seen. There is no pericardial or pleural effusion. The nodule in the right upper lobe measures 1.2 cm, which has increased in size compared to previous exam and is worrisome for neoplasia. The interstitial opacity in both lungs may be due to mild edema. The chest wall is intact. Limited images of the upper abdomen are unremarkable. IMPRESSION: Interval increase in size of the right upper lobe lung nodule, now highly concerning for neoplasia. Recommend follow-up PET/CT or needle sampling. Reviewed, Interpreted and Dictated by Gael Carreon MD Transcribed by Kalyani Turner Authenticated and [facility]
== END 2024-11-30 23:59 | disposition home or self-care (01) ==
LOC: RAD 12:33
PROVIDERS: PCP Family Medicine; Visit Provider Internal Medicine Pulmonary Disease
DX: R91.8 Other nonspecific abnormal finding of lung field (principal)
CPT/HCPCS: 71250

== ENCOUNTER 2024-12-27 09:12 | Day surgery (SDC) | payer MEDICARE, SELFPAY ==
[2024-12-24 12:15] VITALS: BMI 37.1
[2024-12-27] VITALS (9 sets, daily range): BP systolic 106–149; BP diastolic 51–96; PULSE 66–102; RESP 12–20; TEMP 36.4–37.1; O2SAT 2–94
--- NOTE | 2024-12-27 09:32 | ECG_ITS ---
APPROVED REPORT Exam: Resting ECG HR:81 bpm ECG Measurements Heart Rate 81 AXES NC 163 P 58 QRSd 128 QRS 120 QT 381 T 51 QTc 418 Conclusion SINUS RHYTHM RIGHT BUNDLE BRANCH BLOCK [120+ ms QRS DURATION, UPRIGHT V1, 40+ ms S IN I/aVL/V4/V5/V6] LEFT POSTERIOR FASCICULAR BLOCK [QRS AXIS > 109, INFERIOR Q] ABNORMAL ECG UNCONFIRMED REPORT Electronically signed by : Levar Meza MD 12/28/2024 08:05:31
[2024-12-27] MEDS: LACTATED RINGERS 1000ML 1,000 ML 25 ML IV (09:33)
[2024-12-27 09:48] LABS: Basophils # 0.1 K/mm3 (0-0.2); Basophils % 0.6 % (0.1-2.0); Eosinophils # 0.2 K/mm3 (0.0-0.4); Eosinophils % 2.6 % (0.1-12.0); Hematocrit 44.9 % (42.0-52.0); Hemoglobin 14.9 g/dL (14.1-18.0); Lymphocytes # 2.6 K/mm3 (0.7-4.5); Lymphocytes % 29.6 % (10-50); Mean Corpuscular HGB Conc 33.2 g/dL (31.8-35.4); Mean Corpuscular Hemoglobin 28.8 pg (27.0-31.2); Mean Corpuscular Volume 86.8 fl (80-94); Mean Platelet Volume 9.2 fl (7.4-10.4); Monocytes # 0.6 K/mm3 (0.1-1.0); Monocytes % 7.1 % (1.7-9.3); Neutrophils # 5.4 K/mm3 (1.8-7.8); Neutrophils % 59.9 % (37.0-80.0); Platelet Count 229 K/mm3 (142-424); Red Blood Count 5.17 M/mm3 (4.60-6.20); Red Cell Distribution Width 15.7 % (11.5-17.5); White Blood Count 8.9 K/mm3 (4.8-10.8)
[2024-12-27 09:53] LABS: POC Glucose,Bedside 102 (70-110)
[2024-12-27 09:57] LABS: Anion Gap 8.8 mEq/L (5-15); Blood Urea Nitrogen 24 mg/dl (9-20); Calcium 9.5 mg/dl (8.4-10.2); Carbon Dioxide 32 mmol/L (22.0-30.0); Chloride 104 mmol/L (98-107); Creatinine Clearance Estimated 62 mL/min (50-200); Estimated Glomerular Filt Rate 43 ml/min (>60); GFR (African American) 52 ML/MIN (>60); Glucose 105 mg/dl (74-100); Potassium 4.8 mmoL/L (3.5-5.1); Sodium 140 mmol/L (136-145)
--- NOTE | 2024-12-27 10:48 | EXP.ANES.CKL ---
[facility] Disclaimer: The information contained in this section may have been updated after the patient was seen, as this information can be updated by other users. Medical History Bilateral lower extremity edema Tobacco abuse counseling Pulmonary nodule Cervicogenic headache Symptomatic improvement with amitriptyline 25 mg p.o. nightly. 05/21/2023: Cervical traction unit was discussed, recommended. Encounter for screening for malignant neoplasm of lung Smoking greater than 30 pack years Advised to consider smoking cessation. COPD (chronic obstructive pulmonary disease) with emphysema Gout Arthritis Hyperlipidemia Hypertension Skin cancer Kidney stone COPD (chronic obstructive pulmonary disease) Allergies History of cataract DDD (degenerative disc disease), cervical Chronic headaches Degenerative disc disease, cervical Neck Pain PILY (obstructive sleep apnea) 08/06/2023: He is doing better and trying to use CPAP every night, (93.7%) but difficulty keeping mask in place for longer than 4 hours. He will work on it. Unable to tolerate a CPAP in the past and poor compliance with O2 at night. 06/03/2023, HSAT: Total recording time 5.07 hours. Sleep latency 8 minutes, sleep efficiency of 81%. AHI 33, RDI 37, SPO2 lower than 90% was recorded during 48% of total sleep time. Lowest SPO2: 69%. Surgical History History of cataract surgery History of heart artery stent History of cardiac catheterization History of ankle surgery LEFT History of surgery STENT X1 History of total knee replacement LEFT Family History Other Diabetes Heart attack Hypertension Stroke Social History Smoking Status: Current every day smoker years smoked: 50 second hand exposure: No alcohol intake: former substance use type: denies use current occupational status: retired Travel in the last 8 weeks: None household members: spouse housing: house current occupational exposures/hazards: No caffeine: Yes Have you lived/traveled outside [place] in past 30 days?: No Contact w/someone who lives/traveled outside [place] past 30 days?: No Exposure to someone with infectious disease in past 14 days?: No Do you have a fever (greater than 100.4 F or 38 C)?: No Have you tested positive for COVID-19: No Exposed to someone with COVID-19 in past 14 days?: No Do you have a sore throat?: No Do you have a cough?: No Do you have any weakness?: No Do you have any diarrhea?: No Are you experiencing any unusual bleeding?: No Do you have any muscle aches/pain?: No Do you have any abdominal pain?: No Are you experiencing loss of taste or smell?: No [facility] Anesthesia Checklist Patient Identification Patient Identification: Arm Band Structural Data Admitted From: Home Planned Operative Procedure/s: Bronchoscopy with EBUS Consent for Planned Operative Procedure(s) Verified: Yes Verified Documents: Surgical Consent and History and Physical NPO Status Verified Time NPO: 00:00 Additional verifications Anesthesia Reactions: No Hx Blood Transfusions: No Blood Transfusion Reaction: No Airway Assessment Mallampati Score:: Class II C-Spine Mobility Assessed: Yes TMJ Mobility Assessed: Yes Dentition: Good Dentition Neurological Assessment Level of Consciousness: Awake, Alert and Appropriate Anesthesia Plan Anesthesia Risk discussed: Yes Anesthesia Plan: Verified ASA Class: III Anesthesia Type: General
--- NOTE | 2024-12-27 12:48 | EXP.ANES.I ---
[facility] Anesthesia Record Part I Anesthesia Record I Intake, IV Amount: 750 Hydration: Adequate Estimated blood loss (mL): 0 Urine output (mL): 0 Blood Products used (#): none Blood Pressure: 128/70 SaO2: 90 Pulse Rate: 88 Airway Patency: Patent Respiratory Rate: 12 Temperature: 98.2 F Patient is:: Stable and Somnolent Stable to PACU at:: 12:25
--- NOTE | 2024-12-27 12:55 | P.PCN_ITS ---
Procedure: Date: 12/27/24 Patient Date of :: 1950 Procedure Performed:: Bronchoscopy with airway examination, endobronchial ultrasound-guided fine- needle aspiration of lymph node Indications:: Lung nodule and lymphadenopathy Performing Provider:: Jaime Nesbitt MD Referring Provider:: Dr. Davison Sedation:: General anesthesia = Procedure:: Bronchoscopy with airway examination, endobronchial ultrasound-guided fine- needle aspiration of lymph node: A clean EBUS bronchoscopy was advanced the ET tube and lymph node surveillance was performed. Patient noted to have lymphadenopathy at stations 10L, 4R, station 7 and station 10R. Fine-needle aspiration of the above mentioned for lymph node stations were performed. A total of 5 passes were performed at each lymph node station and the resultant lymph nodes sampled were sent separately labeled for each lymph node station in [employer]to[employer] for cytopathologic examination. EBUS bronchoscopy was retracted and a clean diagnostic bronchoscopy was advanced through the ET tube and airways were examined up to subsegmental bronchi. Airways appeared grossly normal, no evidence of mucoid secretions, mucous plugging active bleeding/old blood clots noted. No endobronchial lesions noted. No bronchoalveolar lavage OR transbronchial biopsy procedures were performed Patient tolerated the procedure with no immediate acute complications. We will follow the patient in pulmonary clinic in 7 to 10 days. Findings:: Please see the procedure note Recommendations:: Postoperative bronchoscopy instructions Follow in pulmonary clinic Complications:: No acute immediate complication Estimated blood obtained (mL): 5
--- NOTE | 2024-12-27 12:59 | XR_ITS ---
FINAL REPORT TECHNIQUE: Single view chest CLINICAL HISTORY: post-bronch COMPARISON: 11/30/2024 FINDINGS: A single view of the chest was obtained. The heart and mediastinum are within normal limits. There is a vague opacity in the right upper lobe which may resent atelectasis or postbiopsy change. The left lung is clear. There is no pneumothorax. IMPRESSION: No pneumothorax postbiopsy. Reviewed, Interpreted and Dictated by Tucker Seo MD Transcribed by Coty Ruby Authenticated and [facility]
--- NOTE | 2024-12-27 13:53 | SUR.PHASEII ---
1340: Dr. Nesbitt at bedside. OK to d/c per .
--- NOTE | 2024-12-28 10:02 | P.PNANES_ITS ---
[facility] Anesthesia Record Part II Anesthesia Record Part II Discharge Time: 12:55 Destination: Surgical Day Care (OP Surgery) PACU nurse assessment reviewed?: Yes Patient Condition:: Good Anesthesia Complications:: None Swallowing reflex intact?: Yes Airway Patency: Patent Cyanosis?: No Blood Pressure: 135/96 SaO2: 94 Respiratory Rate: 18 Pulse Rate: 94 Temperature: 98.2 F Mental Status: Alert & Oriented Pain level:: 0 Nausea and/or vomitting:: None Intake, IV Amount: 0 Hydration: Adequate
[2024-12-28 10:03] VITALS: BP 135/96; PULSE 94; RESP 18; TEMP 36.8; O2SAT 94
== END 2024-12-27 13:53 | disposition home or self-care (01) ==
PROVIDERS: PCP Family Medicine; Visit Provider Internal Medicine Pulmonary Disease
PROC: BB4BZZZ Ultrasonography of Pleura (ICD-10-PCS; CPT 31653; principal; 2024-12-27 10:45)
DX: R91.1 Solitary pulmonary nodule (principal); R59.1 Generalized enlarged lymph nodes; J44.9 Chronic obstructive pulmonary disease, unspecified; F17.210 Nicotine dependence, cigarettes, uncomplicated; Z79.899 Other long term (current) drug therapy; Z88.8 Allergy status to other drugs, medicaments and biological substances; C96.9 Malignant neoplasm of lymphoid, hematopoietic and related tissue, unspecified
CPT/HCPCS: 31653; 71045; 80048; 82962; 85025; 88173; 88305; 88341; 88342; 88360; 93005; J3490; J1100; J2405; J3010; J7120

== ENCOUNTER 2025-01-07 06:58 | Outpatient (CLI) | payer MEDICARE, SELFPAY | END 2025-01-07 23:59 | disposition home or self-care (01) | LOC: RAD 06:58 | PROVIDERS: PCP Family Medicine; Visit Provider Internal Medicine Medical Oncology | DX: C34.90 Malignant neoplasm of unspecified part of unspecified bronchus or lung (principal) ==

== ENCOUNTER 2025-03-12 17:00 | Emergency (ER) | payer MEDICARE, SELFPAY ==
[2025-03-12] VITALS (7 sets, daily range): BP systolic 100–150; BP diastolic 53–98; PULSE 55–117; RESP 16–19; TEMP 37.7; O2SAT 61–97; BMI 42.9
--- NOTE | 2025-03-12 17:08 | [facility].EDGENADL ---
Discharge Plan Disposition Patient Disposition: Xfer Short-Term Hosp Condition: Critical Prescriptions Prescriptions: No Action albuterol sulfate 90 mcg/actuation HFA aerosol inhaler See Rx Instructions .ROUTE .COMPLEX Qty: 8.5 5RF Dose Instruction: INHALE 2 PUFFS BY MOUTH EVERY 4 TO 6 HOURS NEEDED FOR SHORTNESS OF BREATH Rx Instructions: INHALE 2 PUFFS BY MOUTH EVERY 4 TO 6 HOURS NEEDED FOR SHORTNESS OF BREATH Tradjenta 5 mg tablet 5 mg PO DAILY Qty: 90 3RF aspirin 325 mg tablet 325 mg PO DAILY Qty: 90 3RF (DME) Blood Glucose Test Strip See Rx Instructions MISCELLANEOUS Qty: 100 12RF Rx Instructions: As directed test morning and afternoon allopurinol 300 mg tablet See Rx Instructions .ROUTE .COMPLEX Qty: 90 3RF Dose Instruction: TAKE 1 TABLET BY MOUTH DAILY FOR GOUT Rx Instructions: TAKE 1 TABLET BY MOUTH DAILY FOR GOUT amitriptyline 25 mg tablet See Rx Instructions .ROUTE .COMPLEX Qty: 90 3RF Dose Instruction: TAKE 1 TABLET BY MOUTH AT BEDTIME NIGHTLY FOR MIGRAINES Rx Instructions: TAKE 1 TABLET BY MOUTH AT BEDTIME NIGHTLY FOR MIGRAINES dicyclomine 10 mg capsule See Rx Instructions .ROUTE .COMPLEX Qty: 180 3RF Dose Instruction: TAKE 1 CAPSULE BY MOUTH EVERY 6 HOURS Rx Instructions: TAKE 1 CAPSULE BY MOUTH 2x/day gabapentin 600 mg tablet 600 mg PO QID Qty: 120 5RF pantoprazole 40 mg tablet,delayed release (DR/EC) 40 mg PO QAM Qty: 90 3RF tadalafil 5 mg tablet See Rx Instructions .ROUTE .COMPLEX Qty: 90 3RF Dose Instruction: TAKE 1 TABLET BY MOUTH DAILY NEEDED FOR PROSTATE Rx Instructions: TAKE 1 TABLET BY MOUTH DAILY NEEDED FOR PROSTATE tamsulosin 0.4 mg capsule See Rx Instructions .ROUTE .COMPLEX Qty: 90 3RF Dose Instruction: TAKE 1 CAPSULE BY MOUTH DAILY FOR PROSTATE Rx Instructions: TAKE 1 CAPSULE BY MOUTH DAILY FOR PROSTATE nicotine (polacrilex) 2 mg gum 2 mg buccal Q2H PRN (Reason: nicotine cravings) Qty: 100 2RF atorvastatin 20 mg tablet 20 mg PO DAILY Qty: 90 3RF amlodipine 10 mg tablet See Rx Instructions .ROUTE .COMPLEX Qty: 90 3RF Dose Instruction: TAKE 1 TABLET BY MOUTH DAILY FOR BLOOD PRESSURE Rx Instructions: TAKE 1 TABLET BY MOUTH DAILY FOR BLOOD PRESSURE nitroglycerin 0.4 mg tablet, sublingual See Rx Instructions .Route .COMPLEX Qty: 25 0RF Rx Instructions: ONE TABLET UNDER TONGUE NEEDED FOR CHEST PAIN NEEDED CHEST PAINS FOR 3 DOSES THEN CALL 911 hydrocodone-acetaminophen 10-325 mg tablet 1 tab PO Q6H PRN (Reason: pain) Qty: 120 0RF (DME) blood-glucose meter Misc See Rx Instructions MISCELLANEOUS Rx Instructions: As directed (DME) lancets [Color Lancets] 21 gauge misc See Rx Instructions MISCELLANEOUS Rx Instructions: As directed Referrals Follow up/Referrals: Levar Davison MD [Primary Care Provider] - See instructions Clinical Impressions Clinical Impression: Acute hypercapnic respiratory failure, Sepsis, Metastatic disease, Elevated troponin Print Language Print Language: Hungarian Discharge ED Provider: Francisco Lynn General Adult HPI <PANKAJ Lim - Last Filed: 03/12/25 17:44> General Chief complaint: Weakness Stated complaint: cant walk ,shaky,pressure in head Time Seen by Provider: 03/12/25 17:08 Related Data Home Medications ?Medication ?Instructions ?Recorded ?Confirmed blood-glucose meter 08/06/22 02/11/25 lancets 21 gauge (Color Lancets) 08/06/22 02/11/25 Previous Rx's ?Medication ?Instructions ?Recorded aspirin 325 mg tablet 325 mg PO DAILY heart health #90 11/06/22 tabs blood sugar diagnostic (Blood #100 ea 11/06/22 Glucose Test strips) allopurinol 300 mg tablet See Rx Instructions .Route 08/16/24 .COMPLEX #90 tabs amitriptyline 25 mg tablet See Rx Instructions .Route 08/16/24 .COMPLEX #90 tabs dicyclomine 10 mg capsule See Rx Instructions .Route 08/16/24 .COMPLEX #180 caps gabapentin 600 mg tablet 600 mg PO QID Pain #120 tabs 08/16/24 pantoprazole 40 mg tablet,delayed 40 mg PO QAM #90 tabs 08/16/24 release tadalafil 5 mg tablet See Rx Instructions .Route 08/16/24 .COMPLEX #90 tabs tamsulosin 0.4 mg capsule See Rx Instructions .Route 08/16/24 .COMPLEX #90 caps atorvastatin 20 mg tablet 20 mg PO DAILY #90 tabs 08/17/24 amlodipine 10 mg tablet See Rx Instructions .Route 11/11/24 .COMPLEX #90 tabs nitroglycerin 0.4 mg sublingual See Rx Instructions .Route 11/11/24 tablet .COMPLEX Chest pain #25 tabs albuterol sulfate 90 mcg/actuation See Rx Instructions .Route 11/16/24 aerosol inhaler .COMPLEX #8.5 grams linagliptin 5 mg tablet (Tradjenta) 5 mg PO DAILY #90 tabs 11/16/24 nicotine (polacrilex) 2 mg gum 2 mg buccal Q2H PRN nicotine 12/03/24 cravings #100 ea hydrocodone 10 mg-acetaminophen 1 tab PO Q6H PRN pain #120 tabs 03/02/25 325 mg tablet Allergies Allergy/AdvReac Type Severity Reaction Status Date / Time fluticasone furoate (From Allergy Severe swollen Verified 02/11/25 09:17 Breo Ellipta) throat vilanterol (From Breo Allergy Severe swollen Verified 02/11/25 09:17 Ellipta) throat <Francisco Lynn MD - Last Filed: 03/12/25 18:59> History of Present Illness HPI narrative: Patient is 74-year-old male with past medical history of hypertension, hyperlipidemia, COPD, lung cancer not currently being treated but he takes self-administered ivermectin from [employer] who presents emergency department for evaluation of shortness of breath and limited ability to walk or move his upper extremities with waxing waning levels of consciousness. No chest pain, no abdominal pain. Accompanied by . No other acute complaints at this time. [facility] <PANKAJ Lim - Last Filed: 03/12/25 17:44> [facility] Disclaimer: The information contained in this section may have been updated after the patient was seen, as this information can be updated by other users. Medical History Bilateral lower extremity edema Tobacco abuse counseling Pulmonary nodule Cervicogenic headache Symptomatic improvement with amitriptyline 25 mg p.o. nightly. 05/21/2023: Cervical traction unit was discussed, recommended. Encounter for screening for malignant neoplasm of lung Smoking greater than 30 pack years Advised to consider smoking cessation. COPD (chronic obstructive pulmonary disease) with emphysema Gout Arthritis Hyperlipidemia Hypertension Skin cancer Kidney stone COPD (chronic obstructive pulmonary disease) Allergies History of cataract DDD (degenerative disc disease), cervical Chronic headaches Degenerative disc disease, cervical Neck Pain PILY (obstructive sleep apnea) 08/06/2023: He is doing better and trying to use CPAP every night, (93.7%) but difficulty keeping mask in place for longer than 4 hours. He will work on it. Unable to tolerate a CPAP in the past and poor compliance with O2 at night. 06/03/2023, HSAT: Total recording time 5.07 hours. Sleep latency 8 minutes, sleep efficiency of 81%. AHI 33, RDI 37, SPO2 lower than 90% was recorded during 48% of total sleep time. Lowest SPO2: 69%. Surgical History History of cataract surgery History of heart artery stent History of cardiac catheterization History of ankle surgery LEFT History of surgery STENT X1 History of total knee replacement LEFT Family History Other Diabetes Heart attack Hypertension Stroke Social History Smoking Status: Unknown if ever smoked years smoked: 50 second hand exposure: No alcohol intake: former substance use type: denies use current occupational status: retired Travel in the last 8 weeks?: None household members: spouse housing: house current occupational exposures/hazards: No caffeine: Yes Have you lived/traveled outside [place] in past 30 days?: No Contact w/someone who lives/traveled outside US past 30 days?: No Exposure to someone with infectious disease in past 14 days?: No Do you have a fever (greater than 100.4 F or 38 C)?: No Have you tested positive for COVID-19?: No Exposed to someone with COVID-19 in past 14 days?: No Do you have a sore throat?: No Do you have a cough?: No Do you have any weakness?: No Do you have any diarrhea?: No Are you experiencing any unusual bleeding?: No Do you have any muscle aches/pain?: No Do you have any abdominal pain?: No Are you experiencing loss of taste or smell?: No Other Medical History Have you received the Flu Vaccine for this season: Yes Have you received the Pneumonia Vaccine: Yes <PANKAJ Lim - Last Filed: 03/12/25 17:44> ROS Obtained: Yes Systems reviewed as appropriate & no additional complaints except as documented Physical Exam <PANKAJ Lim - Last Filed: 03/12/25 17:44> General General appearance: alert and in no apparent distress Head Head exam: atraumatic and normal inspection Eye Eye exam: Present normal appearance, PERRL and EOMI ENT ENT exam: Present normal exam, normal oropharynx and mucous membranes moist Neck Neck exam: Present normal inspection, full ROM and trachea midline; Absent lymphadenopathy Chest Chest inspection: Present normal inspection and symmetric chest wall rise Respiratory Respiratory exam: Present normal lung sounds bilaterally; Absent accessory muscle use Cardiovascular Cardiovascular exam: Present regular rate, normal rhythm, normal heart sounds, +S1 and +S2 Abdominal Exam Abdominal exam: Present soft and normal bowel sounds; Absent tenderness, guarding or rebound Extremities Exam Extremities exam: Present normal inspection and full ROM Neurological Exam Neurological exam: Present alert, oriented X3 and CN II-XII intact Psychiatric Psychiatric exam: Present normal affect and normal mood Skin Skin exam: Present warm, dry and normal color Lymphatic Lymphatic Findings: no adenopathy <Francisco Lynn MD - Last Filed: 03/12/25 18:59> General General appearance: lethargic Comment: Arousable to voice Respiratory Respiratory exam: Present respiratory distress, wheezes and accessory muscle use; Absent normal lung sounds bilaterally Cardiovascular Cardiovascular exam: Present tachycardia Neurological Exam Neurological exam: Present other (Arms and legs intermittently fall against gravity and rebound) Medical Decision Making <PANKAJ Lim - Last Filed: 03/12/25 17:44> Medical Records Screening: Per USPSTF and CDC recommendations, given the prevalence of disease in our region, it is our hospital?s policy to screen for HIV and viral Hepatitis for all patients aged 18 and over and those with ongoing risk factors. Vital Signs: 03/12/25 17:12 03/12/25 17:26 03/12/25 17:29 Temperature 99.8 F H Temperature Source Oral Pulse Rate Respiratory Rate 16 Blood Pressure 150/98 H 141/70 H Blood Pressure Source Manual Cuff/ Doppler 02 Sat by Pulse Oximetry 61 L Oxygen Delivery Method Room Air Oxygen Flow Rate (LPM) 03/12/25 17:39 03/12/25 18:01 Temperature Temperature Source Pulse Rate 112 H 117 H Respiratory Rate 19 17 Blood Pressure 146/83 H 147/78 H Blood Pressure Source 02 Sat by Pulse Oximetry 97 96 Oxygen Delivery Method Non-Rebreather Oxygen Flow Rate (LPM) 15 Lab Data Lab Results 03/12/25 17:15: WBC 11.3 H, RBC 4.32 L, Hgb 12.2 L, Hct 37.7 L, MCV 87.3, MCH 28.2, MCHC 32.4, RDW 16.6, Plt Count 199, MPV 9.6, Neut % (Auto) 61.7, Lymph % (Auto) 26.6, [place] % (Auto) 9.3, Eos % (Auto) 1.7, Baso % (Auto) 0.4, Neut # (Auto) 7.0, Lymph # (Auto) 3.0, [place] # (Auto) 1.1 H, Eos # (Auto) 0.2, Baso # (Auto) 0.1, PT 11.6, INR 1.05, Sodium 135 L, Potassium 5.3 H, Chloride 100, Carbon Dioxide 30, Anion Gap 10.3, BUN 32 H, Creatinine 2.00 H, Estimated Creat Clear 28, Estimated GFR 33 L, Est GFR ( Amer) 40 L, Glucose 91, Calcium 8.9, Total Bilirubin 0.5, AST 20, ALT 12, Alkaline Phosphatase 78, Troponin I 0.05 H, NT-Pro-B Natriuret Pep 478 H, Total Protein 6.9, Albumin 4.3, Globulin 2.6, Albumin/Globulin Ratio 1.7, Procalcitonin 0.105 03/12/25 17:30: VBG pH 7.31, VBG pCO2 57.1 H, VBG pO2 137.8 H, VBG HCO3 28.3, VBG Total CO2 30.1 H, VBG O2 Saturation 98.7 H, VBG Base Excess 2.1, VBG Lactic Acid 1.0 03/12/25 17:15 03/12/25 17:15 Orders (Tests/Meds): ED MEDICATIONS Generic Name Dose Route Start Last Admin Trade Name Freq PRN Reason Stop Dose Admin Vancomycin HCl 2,500 mg/ 500 mls @ 250 mls/hr 03/12/25 17:45 03/12/25 17:55 Sodium Chloride IV 03/12/25 19:44 250 mls/hr ONCE ONE Administration Propofol 100 mls @ 6.804 mls/hr 03/12/25 18:09 Diprivan 10mg/Ml 100ml Bottle IV 04/11/25 18:08 .[id number] ARNOLDO Protocol 10 MCG/KG/MIN Fentanyl Citrate 1,000 mcg/ 100 mls @ 1 mls/hr 03/12/25 18:09 Sodium Chloride IV 04/11/25 18:08 .Q24H ARNOLDO Protocol 10 MCG/HR Lactated Ringer's 1,780 mls @ 890 mls/hr 03/12/25 18:22 Lactated Ringer's 1000 Ml Bag 30 ml/kg infuse over 2 hr (1780 ml) 03/12/25 20:21 IV .Q2H ONE Miscellaneous 1 each 03/12/25 17:45 Vancomycin Consult Request NOTAPPLIC 04/11/25 17:44 [facility] Discontinued Medications Generic Name Dose Route Start Last Admin Trade Name Freq PRN Reason Stop Dose Admin Acetaminophen 1,000 mg 03/12/25 18:07 Acetaminophen 1,000mg/100ml Vial IV 03/12/25 18:08 ONCE ONE Albuterol/Ipratropium 9 ml 03/12/25 17:20 Ipratropium/Albuterol 3 Ml Neb IH 03/12/25 17:21 ONCE ONE Dexamethasone Sodium Phosphate 10 mg 03/12/25 17:20 03/12/25 17:45 Dexamethasone 4mg/Ml 5ml Mdv IV 03/12/25 17:21 10 mg ONCE ONE Administration Etomidate 30 mg 03/12/25 18:08 Etomidate 40mg/20ml Vial IV 03/12/25 18:09 ONCE ONE Piperacillin Sod/Tazobactam 50 mls @ 100 mls/hr 03/12/25 17:41 03/12/25 17:54 Sod 3.375 gm/ Sodium Chloride IV 03/12/25 18:10 100 mls/hr ONCE ONE Administration Iopamidol 160 ml 03/12/25 17:31 03/12/25 17:33 Iopamidol-370 (76%);100ml Bottle IV 03/12/25 17:32 160 ml ONCE ONE Administration Sodium Chloride 10 ml 03/12/25 17:31 03/12/25 17:33 Sodium Chloride 0.9% 10ml Syr (Rad Only) IV 03/12/25 17:32 10 ml ONCE ONE Administration Sodium Chloride 100 ml 03/12/25 17:31 03/12/25 17:33 0.9 % Sodium Chloride 50 Ml Vial IV 03/12/25 17:32 100 ml ONCE ONE Administration Succinylcholine Chloride 150 mg 03/12/25 18:07 Succinylcholine 20mg/Ml 10 Ml Mdv IV 03/12/25 18:08 ONCE ONE ORDERS Category Date Time Status CT angio abdomen pelvis Stat Cat Scan 03/12/25 17:[address] angio chest - dissection Stat Cat Scan 03/12/25 17:[address] angio head Stat Cat Scan 03/12/25 17:[address] angio neck Stat Cat Scan 03/12/25 17:[address] head/brain wo con Stat Cat Scan 03/12/25 17:18 Completed CXR --portable [XR chest portable] Stat Exams 03/12/25 18:23 Ordered BNP [NT Pro Brain Natriuretic Pep.] Stat Lab 03/12/25 17:15 Completed CBC w/Auto Diff [Complete Blood Count Auto Diff] Stat Lab 03/12/25 17:15 Completed CMP [Comprehensive Metabolic Panel] Stat Lab 03/12/25 17:15 Completed Full Resp Panel w/COVID ([facility]) Routine Lab 03/12/25 17:15 Received INR [Prothrombin Time INR] Stat Lab 03/12/25 17:15 Completed Procalcitonin Stat Lab 03/12/25 17:15 Completed Trop I [Troponin I] Stat Lab 03/12/25 17:15 Completed Troponin I Q3H Lab 03/12/25 20:30 Ordered Troponin I Q3H Lab 03/12/25 23:30 Ordered UA [Urinalysis and Microscopic] Stat Lab 03/12/25 18:37 Received Blood Culture Stat Micro 03/12/25 17:51 Received VBG [Venous Blood Gas] Stat RT 03/12/25 17:30 Completed Medical Decision Narrative: In summary patient is a [age, sex] who presents to the emergency department for evaluation of [complaint]. Patient is [hemodynamically stable/unstable] upon arrival, [febrile/afebrile]. [Unremarkable physical exam, nonfocal exam versus focal remarkable exam]. Differential diagnosis includes [DDx]. Initial workup will be conducted with [hematologic labs, imaging, respiratory swab, describe workup]. Initial interventions include [crystalloid bolus, medications, p.o. challenge, etc.] initial workup reviewed by me [hematologic labs are remarkable for... Imaging remarkable for... Urinalysis remarkable for]. Upon repeat evaluation [patient had acceptable resolution of symptoms, had persistent pain for which additional interventions were conducted (describe interventions), tolerated p.o., was ambulatory, etc.]. Given this [patient is appropriate for discharge at this time and will be discharged with a prescription for... The case was discussed with hospital medicine regarding management and they will admit the patient their service for continued evaluation at this time... Etc.] Places where you can increase complexity: I informally interpreted the patient's chest x-ray or CT read and is remarkable for... Documenting what the banking consultant shows with rate and rhythm Consideration of test but deferring. Ex: I considered chest x-ray on this patient however given that they have no oxygen requirement and are clear to auscultation all lung browne will be deferred. Social determinants of health: Given that patient is undomiciled increases complexity. Given that patient has polysubstance abuse compounds all aspects of care <Francisco Lynn MD - Last Filed: 03/12/25 18:59> Butch Inquiry Pt receiving controlled substance: No Vital Signs: 03/12/25 17:12 03/12/25 17:26 03/12/25 17:29 Temperature 99.8 F H Temperature Source Oral Pulse Rate Respiratory Rate 16 Blood Pressure 150/98 H 141/70 H Blood Pressure Source Manual Cuff/ Doppler 02 Sat by Pulse Oximetry 61 L Oxygen Delivery Method Room Air Oxygen Flow Rate (LPM) 03/12/25 17:39 03/12/25 18:01 Temperature Temperature Source Pulse Rate 112 H 117 H Respiratory Rate 19 17 Blood Pressure 146/83 H 147/78 H Blood Pressure Source 02 Sat by Pulse Oximetry 97 96 Oxygen Delivery Method Non-Rebreather Oxygen Flow Rate (LPM) 15 Lab Data Lab Results 03/12/25 17:15: WBC 11.3 H, RBC 4.32 L, Hgb 12.2 L, Hct 37.7 L, MCV 87.3, MCH 28.2, MCHC 32.4, RDW 16.6, Plt Count 199, MPV 9.6, Neut % (Auto) 61.7, Lymph % (Auto) 26.6, [place] % (Auto) 9.3, Eos % (Auto) 1.7, Baso % (Auto) 0.4, Neut # (Auto) 7.0, Lymph # (Auto) 3.0, [place] # (Auto) 1.1 H, Eos # (Auto) 0.2, Baso # (Auto) 0.1, PT 11.6, INR 1.05, Sodium 135 L, Potassium 5.3 H, Chloride 100, Carbon Dioxide 30, Anion Gap 10.3, BUN 32 H, Creatinine 2.00 H, Estimated Creat Clear 28, Estimated GFR 33 L, Est GFR ( Amer) 40 L, Glucose 91, Calcium 8.9, Total Bilirubin 0.5, AST 20, ALT 12, Alkaline Phosphatase 78, Troponin I 0.05 H, NT-Pro-B Natriuret Pep 478 H, Total Protein 6.9, Albumin 4.3, Globulin 2.6, Albumin/Globulin Ratio 1.7, Procalcitonin 0.105 03/12/25 17:30: VBG pH 7.31, VBG pCO2 57.1 H, VBG pO2 137.8 H, VBG HCO3 28.3, VBG Total CO2 30.1 H, VBG O2 Saturation 98.7 H, VBG Base Excess 2.1, VBG Lactic Acid 1.0 Orders (Tests/Meds): ED MEDICATIONS Generic Name Dose Route Start Last Admin Trade Name Freq PRN Reason Stop Dose Admin Vancomycin HCl 2,500 mg/ 500 mls @ 250 mls/hr 03/12/25 17:45 03/12/25 17:55 Sodium Chloride IV 03/12/25 19:44 250 mls/hr ONCE ONE Administration Propofol 100 mls @ 6.804 mls/hr 03/12/25 18:09 Diprivan 10mg/Ml 100ml Bottle IV 04/11/25 18:08 .[id number] ARNOLDO Protocol 10 MCG/KG/MIN Fentanyl Citrate 1,000 mcg/ 100 mls @ 1 mls/hr 03/12/25 18:09 Sodium Chloride IV 04/11/25 18:08 .Q24H ARNOLDO Protocol 10 MCG/HR Lactated Ringer's 1,780 mls @ 890 mls/hr 03/12/25 18:22 Lactated Ringer's 1000 Ml Bag 30 ml/kg infuse over 2 hr (1780 ml) 03/12/25 20:21 IV .Q2H ONE Miscellaneous 1 each 03/12/25 17:45 Vancomycin Consult Request NOTAPPLIC 04/11/25 17:44 CONSULT PHARMACY [facility] Discontinued Medications Generic Name Dose Route Start Last Admin Trade Name Freq PRN Reason Stop Dose Admin Acetaminophen 1,000 mg 03/12/25 18:07 Acetaminophen 1,000mg/100ml Vial IV 03/12/25 18:08 ONCE ONE Albuterol/Ipratropium 9 ml 03/12/25 17:20 Ipratropium/Albuterol 3 Ml Neb IH 03/12/25 17:21 ONCE ONE Dexamethasone Sodium Phosphate 10 mg 03/12/25 17:20 03/12/25 17:45 Dexamethasone 4mg/Ml 5ml Mdv IV 03/12/25 17:21 10 mg ONCE ONE Administration Etomidate 30 mg 03/12/25 18:08 Etomidate 40mg/20ml Vial IV 03/12/25 18:09 ONCE ONE Piperacillin Sod/Tazobactam 50 mls @ 100 mls/hr 03/12/25 17:41 03/12/25 17:54 Sod 3.375 gm/ Sodium Chloride IV 03/12/25 18:10 100 mls/hr ONCE ONE Administration Iopamidol 160 ml 03/12/25 17:31 03/12/25 17:33 Iopamidol-370 (76%);100ml Bottle IV 03/12/25 17:32 160 ml ONCE ONE Administration Sodium Chloride 10 ml 03/12/25 17:31 03/12/25 17:33 Sodium Chloride 0.9% 10ml Syr (Rad Only) IV 03/12/25 17:32 10 ml ONCE ONE Administration Sodium Chloride 100 ml 03/12/25 17:31 03/12/25 17:33 0.9 % Sodium Chloride 50 Ml Vial IV 03/12/25 17:32 100 ml ONCE ONE Administration Succinylcholine Chloride 150 mg 03/12/25 18:07 Succinylcholine 20mg/Ml 10 Ml Mdv IV 03/12/25 18:08 ONCE ONE ORDERS Category Date Time Status CT angio abdomen pelvis Stat Cat Scan 03/12/25 17:[address] angio chest - dissection Stat Cat Scan 03/12/25 17:[address] angio head Stat Cat Scan 03/12/25 17:[address] angio neck Stat Cat Scan 03/12/25 17:[address] head/brain wo con Stat Cat Scan 03/12/25 17:18 Completed CXR --portable [XR chest portable] Stat Exams 03/12/25 18:23 Ordered BNP [NT Pro Brain Natriuretic Pep.] Stat Lab 03/12/25 17:15 Completed CBC w/Auto Diff [Complete Blood Count Auto Diff] Stat Lab 03/12/25 17:15 Completed CMP [Comprehensive Metabolic Panel] Stat Lab 03/12/25 17:15 Completed Full Resp Panel w/COVID ([facility]) Routine Lab 03/12/25 17:15 Received INR [Prothrombin Time INR] Stat Lab 03/12/25 17:15 Completed Procalcitonin Stat Lab 03/12/25 17:15 Completed Trop I [Troponin I] Stat Lab 03/12/25 17:15 Completed Troponin I Q3H Lab 03/12/25 20:30 Ordered Troponin I Q3H Lab 03/12/25 23:30 Ordered UA [Urinalysis and Microscopic] Stat Lab 03/12/25 18:37 Received Blood Culture Stat Micro 03/12/25 17:51 Received VBG [Venous Blood Gas] Stat RT 03/12/25 17:30 Completed ECG Data Tracing #1: Independently interpreted by me rate is 109, rhythm is regular, axis is rightward deviated, no ST elevation in anatomical contiguous leads, QTc 373. Medical Decision Narrative: In summary patient is a 74-year-old male with past medical history of metastatic cancer not currently undergoing therapy who presents Emergency Department for evaluation of shortness of breath. Patient has central cyanosis upon arrival, hypoxic in the 60s, after placed on nonrebreather oxygen recovered to low 90%. Patient is able to converse in sentences although has to take frequent breaks. He is protecting his airway at this time. He has a history of COPD, small cell lung cancer, hypertension, hyperlipidemia. He has had worsening shortness of breath and inability to walk over the last 48 hours and weakness in his bilateral upper extremities causing why to become concerned he presents here for continued evaluation. He has associated cough and shortness of breath without chest pain. Differential includes pneumonia, worsening malignancy, pulmonary embolism, among others. Workup will be conducted with hematologic labs, CT head, chest, abdomen and pelvis. Broad-spectrum antibiotics will be initiated. Shortly after CT which is informally visualized by me there appears to be compressive lesion in his right chest with postobstructive pneumonia patient had worsening encephalopathy and inability to protect his airway therefore intubation was conducted with etomidate and succinylcholine without complication. Postintubation sedation with fentanyl and propofol. Sepsis bolus fluids administered. Given self administration of and will rate ivermectin screening for methemoglobinemia was conducted and is not occurring. Hematologic labs reviewed by me, slight leukocytosis 11.3, mild hypercarbic respiratory failure CO2 57 pH 7.31. Mild nonactionable hyperkalemia, creatinine is elevated at 2 but does not meet BETTY per rifle criteria given his baseline waxes and wanes between 1.7 and the low twos. There is a low degree of troponin anemia without ST elevation I suspect this is due to demand. Repeat tissue perfusion assessment conducted at 1854 agree with continued IV fluids. Case was discussed with [facility] Dr. Balderas who graciously accepted patient for transfer for continued evaluation at this time. CTA neck paratracheal and right hilar lymphadenopathy with peribronchial groundglass opacities in the upper lobes no arterial stenosis or occlusion in the neck, CTA head no LVO mild diffuse low-density white matter both cerebral hemispheres consider leukoencephalopathy, contrasted CT scan head mild diffuse low-density white matter redemonstrated no acute intracranial abnormality. Formal read CTA chest pending at time of transfer. Procedures <Francisco Lynn MD - Last Filed: 03/12/25 18:59> Intubation Mallampati Score:: Class III Time out performed: No sedative: Etomidate Mg Given: 30 paralytic: Succinylcholine Mg Given: 150 ET Tube Size: 7 ET Tube Uncuffed: Yes Tube Secured Depth (cm): 21 Tube Secured Location: teeth Tube Placement Confirmation: visualized tube passing through cords, equal breath sounds bilaterally and confirmation by capnometry Patient Tolerated Procedure: well Intubation Complications: none Critical Care <Francisco Lynn MD - Last Filed: 03/12/25 18:59> Critical Care Time Critical Care Time: Yes Attestation: On 03/12/25, the high probability of a clinically significant, sudden or life threatening deterioration of the following system(s) required my full and direct attention, intervention and personal management. The time I documented below is in addition to time spent performing reported procedures but includes the following listed in this critical care notation. Total Time Total Critical Care Time: 45
--- OUTSIDE RECORDS SUMMARY | 2025-03-12 17:08 | XMS_ITS ---
Author Organization Unknown Patient Care team information Name Category Status Period Participants - - Proposed period not known -
--- NOTE | 2025-03-12 17:10 | ECG_ITS ---
APPROVED REPORT Exam: Resting ECG HR:109 bpm ECG Measurements Heart Rate 109 AXES KS 171 P 61 QRSd 128 QRS 104 QT 309 T 44 QTc 373 Conclusion SINUS TACHYCARDIA RIGHT AXIS DEVIATION [QRS AXIS > 100] RIGHT BUNDLE BRANCH BLOCK [120+ ms QRS DURATION, UPRIGHT V1, 40+ ms S IN I/aVL/V4/V5/V6] No STEMI Electronically signed by : JUNIOR CAST, 03/13/2025 06:16:43
--- NOTE | 2025-03-12 17:13 | PC.NURSE ---
manual BP 150/98 at this time.
--- NOTE | 2025-03-12 17:18 | CT_ITS ---
PROCEDURE INFORMATION: Exam: CTA Head With Contrast, Arteriography Exam date and time: 03/12/2025 5:29 PM Age: 74 years old Clinical indication: Stroke-like symptoms; Altered mental status/memory loss and other: Abrupt inability to walk, h/o lung cancer TECHNIQUE: Imaging protocol: Computed tomographic angiography of the head with contrast. Exam focused on the arteries. 3D rendering (Not supervised by radiologist): MIP and/or 3D reconstructed images were created by the technologist. Radiation optimization: All CT scans at this facility use at least one of these dose optimization techniques: automated exposure control; mA and/or kV adjustment per patient size (includes targeted exams where dose is matched to clinical indication); or iterative reconstruction. Contrast material: ISOVUE; Contrast volume: 80 ml; Contrast route: INTRAVENOUS (IV); COMPARISON: CT HEAD/BRAIN WO CON 03/12/2025 5:23 PM FINDINGS: ANTERIOR CIRCULATION: Right internal carotid artery: Intracranial segment is patent with no significant stenosis. No aneurysm. Right middle cerebral artery: No occlusion or significant stenosis. No aneurysm. Right anterior cerebral artery: No occlusion or significant stenosis. No aneurysm. Left internal carotid artery: Intracranial segment is patent with no significant stenosis. No aneurysm. Left middle cerebral artery: No occlusion or significant stenosis. No aneurysm. Left anterior cerebral artery: No occlusion or significant stenosis. No aneurysm. POSTERIOR CIRCULATION: Right vertebral artery: No occlusion or significant stenosis. No aneurysm. Left vertebral artery: No occlusion or significant stenosis. No aneurysm. Basilar artery: No occlusion or significant stenosis. No aneurysm. Right posterior cerebral artery: No occlusion or significant stenosis. No aneurysm. Left posterior cerebral artery: No occlusion or significant stenosis. No aneurysm. Brain: No definite mass, mass effect, or midline shift. Mild diffuse low-density in the white matter both cerebral hemispheres without mass effect or enhancement. Cerebral ventricles: No ventriculomegaly. Bones/joints: No acute fracture or focal bone lesions. Soft tissues: No masses or swelling. IMPRESSION: 1. No large vessel occlusion. No acute intracranial abnormalities. 2. Mild diffuse low-density in the white matter both cerebral hemispheres. Query for history of whole brain radiation. Consider leukoencephalopathy.
--- NOTE | 2025-03-12 17:18 | CT_ITS ---
PROCEDURE INFORMATION: Exam: CT Head Without Contrast Exam date and time: 03/12/2025 5:23 PM Age: 74 years old Clinical indication: Stroke-like symptoms; Other: Abrupt inability to walk, h/o lung cancer TECHNIQUE: Imaging protocol: Computed tomography of the head without contrast. Radiation optimization: All CT scans at this facility use at least one of these dose optimization techniques: automated exposure control; mA and/or kV adjustment per patient size (includes targeted exams where dose is matched to clinical indication); or iterative reconstruction. Other technique: STROKE PROTOCOL was implemented. COMPARISON: PT P.E.T./CT SKULL BASE TO MID-THIGH 12/09/2024 10:23 AM FINDINGS: Brain: Low-density throughout white matter of both cerebral hemispheres accentuates the curran-white matter junction. No focal intra-axial or extra-axial lesions or masses. No hemorrhages. No midline shift. Cerebral ventricles: No ventriculomegaly. Age appropriate. Paranasal sinuses: Mucous retention cyst in the left sphenoid sinus is unchanged. Mastoid air cells: Visualized mastoid air cells are well aerated. Bones: No acute fractures or bone lesions. Soft tissues: No abnormalities. IMPRESSION: 1. Mild diffuse low-density in the white matter of both cerebral hemispheres. Query for history of whole brain radiation therapy. Consider leukoencephalopathy. Cerebral edema is less likely. 2. No other acute intracranial abnormalities. 3. Mucous retention cyst in the left sphenoid sinus is unchanged since 12/09/2024. ASSESSMENT: ASPECTS ([place] Stroke Program Early CT Score) is 10.
--- NOTE | 2025-03-12 17:18 | CT_ITS ---
PROCEDURE INFORMATION: Exam: CTA Abdomen and Pelvis With Contrast Exam date and time: 03/12/2025 5:33 PM Age: 74 years old Clinical indication: Other: Abrupt inability to walk, h/o lung cancer TECHNIQUE: Imaging protocol: Computed tomographic angiography of the abdomen and pelvis with contrast. Exam focused on the arteries. 3D rendering (Not supervised by radiologist): MIP and/or 3D reconstructed images were created by the technologist. Radiation optimization: All CT scans at this facility use at least one of these dose optimization techniques: automated exposure control; mA and/or kV adjustment per patient size (includes targeted exams where dose is matched to clinical indication); or iterative reconstruction. Contrast material: ISOVUE; Contrast volume: 80 ml; Contrast route: INTRAVENOUS (IV); COMPARISON: PT P.E.T./CT SKULL BASE TO MID-THIGH 12/09/2024 10:23 AM FINDINGS: Aorta: Abdominal aorta demonstrates mild-moderate calcific atherosclerosis without aneurysm, dissection, or stenosis. Celiac trunk and mesenteric arteries: Celiac artery demonstrates mild ostial calcific plaque without stenosis. Its major branch vessels are unremarkable. SMA demonstrates mild ostial calcific plaque without stenosis. Its major branch vessels are unremarkable. RADHA is patent. Renal arteries: Right renal artery demonstrates mild ostial calcific plaque without stenosis. Left renal artery assessment is motion/streak limited, without gross abnormality. Right iliac arteries: Right iliac arteries demonstrate moderate calcific plaque without stenosis. Left iliac arteries: Left iliac arteries demonstrate moderate calcific plaque without stenosis. Liver: Normal contour. No mass lesions. No intrahepatic biliary ductal dilatation. Gallbladder and biliary ducts: Normal. No calcified stones. No ductal dilation. Pancreas: Moderate fatty atrophy of the pancreas without acute abnormality. No pancreatic ductal dilatation. Spleen: Normal. No splenomegaly. Adrenal glands: Normal. No adrenal mass. Kidneys and ureters: No acute abnormalities. No hydronephrosis or hydroureter. Mixed phase contrast injection with excreted contrast in the renal collecting systems limiting sensitivity for small stones. Stomach and bowel: The stomach is largely contracted. The small bowel is nondilated with no gross abnormality. Moderate colonic stool, possible constipation. Appendix: The appendix is normal in caliber and demonstrates no evidence of appendicitis. Intraperitoneal space: No peritoneal free fluid or air. Lymph nodes: Borderline enlarged right inguinal and external iliac nodes and borderline enlarged left external iliac node with slight stranding along the iliac vessels bilaterally, possibly related to mild generalized anasarca Urinary bladder: Unremarkable as visualized. Reproductive: Moderate-severe prostate enlargement, nonspecific, correlate with PSA. Bones/joints: No acute osseous abnormalities. Severe multilevel disc osteoarthritic changes in the lumbar spine. Soft tissues: Question mild generalized body wall edema suggesting mild volume overload or anasarca. Very small fatty umbilical hernia . No evidence of associated bowel herniation or strangulation. Question postsurgical changes of prior bilateral inguinal hernia repair, unchanged. Other findings: Exam sensitivity limited by image noise/streak. IMPRESSION: 1. No acute vascular abnormalities. No evidence of aortic dissection. No vascular occlusions. 2. Moderate-severe prostate enlargement, nonspecific, correlate with PSA. 3. Question mild generalized anasarca/volume overload. 4. Additional nonemergent findings detailed above.
--- NOTE | 2025-03-12 17:18 | CT_ITS ---
PROCEDURE INFORMATION: Exam: CTA Chest With Contrast Exam date and time: 03/12/2025 5:33 PM Age: 74 years old Clinical indication: Shortness of breath; Additional info: Abrupt inability to walk, h/o lung cancer TECHNIQUE: Imaging protocol: Computed tomographic angiography of the chest with contrast. Exam focused on the arteries. 3D rendering (Not supervised by radiologist): MIP and/or 3D reconstructed images were created by the technologist. Radiation optimization: All CT scans at this facility use at least one of these dose optimization techniques: automated exposure control; mA and/or kV adjustment per patient size (includes targeted exams where dose is matched to clinical indication); or iterative reconstruction. Contrast material: ISOVUE; Contrast volume: 80 ml; Contrast route: INTRAVENOUS (IV); COMPARISON: PT P.E.T./CT SKULL BASE TO MID-THIGH 12/09/2024 10:23 AM FINDINGS: Pulmonary arteries: No large central pulmonary emboli are identified. Small branch assessment was limited due to image noise/streak and respiratory motion. Mild dilatation of the central pulmonary arteries suggesting pulmonary arterial hypertension. Aorta: The aorta demonstrates mild ectasia/tortuosity and moderate calcific atherosclerosis. No aortic aneurysm or dissection. No mediastinal hematoma. Thyroid: The visualized thyroid gland demonstrates no gross abnormality. Lungs: Tracheobronchial AP airway narrowing is most likely related to image acquisition during expiration or cough. Patchy mild bilateral alveolar opacities which likely represent subsegmental atelectasis related to hypoventilatory/expiratory changes. Patchy mild edema or pneumonitis considered less likely. 10 x 6 x 16 mm pulmonary nodule in the right apex on series 5, image 34 is not significantly changed. Pleural spaces: No pleural effusion. No pneumothorax. Heart: Heart size normal. No pericardial effusion. Coronary arteries: Moderate coronary artery calcification. Lymph nodes: No axillary adenopathy. Mildly enlarged left supraclavicular nodes. Enlarged mediastinal nodes in the pretracheal retrocaval and AP window distributions, and mildly enlarged subcarinal nodes, increased in size from 12/09/2024. Moderately enlarged right hilar nodes, increased in size as well. Diaphragm: Question small hiatal hernia. Mild distal esophageal wall thickening suspicious for esophagitis. Bones/joints: No acute osseous abnormalities. Mild thoracic spondylosis. Soft tissues: Mild bilateral symmetrical gynecomastia noted. IMPRESSION: 1. No acute vascular abnormalities are identified. No aortic dissection. No large central pulmonary emboli, although small branch assessment was limited. 2. Enlarged mediastinal and right hilar nodes, demonstrating further increase in size since 12/09/2024, concerning for disease progression. 3. Pulmonary nodule in the right apex is grossly unchanged. 4. Question small hiatal hernia and mild distal esophageal wall thickening, possibly mild esophagitis. 5. Expiratory image acquisition with bilateral pulmonary hypoventilatory changes. 6. Additional nonemergent findings detailed above.
--- NOTE | 2025-03-12 17:18 | CT_ITS ---
PROCEDURE INFORMATION: Exam: CTA Neck With Contrast Exam date and time: 03/12/2025 5:29 PM Age: 74 years old Clinical indication: Stroke-like symptoms; Altered mental status/memory loss and other: Abrupt inability to walk, h/o lung cancer TECHNIQUE: Imaging protocol: Computed tomographic angiography of the neck with contrast. Exam focused on the cervical segments of the vasculature. 3D rendering (Not supervised by radiologist): MIP and/or 3D reconstructed images were created by the technologist. Radiation optimization: All CT scans at this facility use at least one of these dose optimization techniques: automated exposure control; mA and/or kV adjustment per patient size (includes targeted exams where dose is matched to clinical indication); or iterative reconstruction. Contrast material: ISOVUE; Contrast volume: 80 ml; Contrast route: INTRAVENOUS (IV); COMPARISON: PT P.E.T./CT SKULL BASE TO MID-THIGH 12/09/2024 10:23 AM FINDINGS: Right common carotid artery: No stenosis. No dissection or occlusion. Right internal carotid artery: No stenosis of the extracranial segment. No dissection or occlusion. Right external carotid artery: No occlusion or stenosis of the origin. Left common carotid artery: No stenosis. No dissection or occlusion. Left internal carotid artery: No significant stenosis of the extracranial segment. No dissection or occlusion. Calcified plaque causes less than 50% stenosis. Left external carotid artery: No occlusion or stenosis of the origin. Right vertebral artery: No stenosis. No dissection or occlusion. Left vertebral artery: No stenosis. No dissection or occlusion. Lymph nodes: Pretracheal and right hilar lymphadenopathy. Soft tissues: No masses or edema. Bones/joints: No acute fracture, subluxations, or bone lesions. Lungs: Peribronchial ground-glass opacities in both upper lobes IMPRESSION: 1. No arterial stenosis or occlusion in the neck. 2. Pretracheal and right hilar lymphadenopathy. 3. Peribronchial ground-glass opacities in both upper lobes may indicate lymphatic obstruction or pneumonia. REFERENCES: NASCET CRITERIA. The degree of stenosis in the cervical segment of the internal carotid artery is based on NASCET criteria. Normal is no stenosis. Mild is less than 50% stenosis. Moderate is 50-69% stenosis. Severe is 70% to 99% stenosis. Total occlusion is no detectable patent lumen. THIS REPORT CONTAINS FINDINGS THAT MAY BE CRITICAL TO PATIENT CARE. The findings were verbally communicated via telephone conference with DR. PAULSON at 6:11 PM EDT on 03/12/2025. The findings were acknowledged and understood.
[2025-03-12 17:32] LABS: VBG Base Excess 2.1 mmol/L (-2.4-2.3); VBG HCO3 28.3 mmol/L (23-30); VBG Oxygen Saturation 98.7 % (50-70); VBG PCO2 57.1 mmol/L (35-51); VBG PH 7.31 mmol/L (7.31-7.41); VBG PO2 137.8 mmol/L (28-40); VBG Total CO2 30.1 mmol/L (23-27)
[2025-03-12] MEDS: SODIUM CHLORIDE 0.9% 10ML SYR (RAD ONLY) 10 ML IV (17:33)
[2025-03-12] MEDS: IOPAMIDOL-370 (76%);100ML BOTTLE 160 ML IV (17:33)
[2025-03-12] MEDS: 0.9 % SODIUM CHLORIDE 50 ML VIAL 100 ML IV (17:33)
[2025-03-12 17:34] LABS: Basophils # 0.1 K/mm3 (0-0.2); Basophils % 0.4 % (0.1-2.0); Eosinophils # 0.2 Kmm3 (0.0-0.4); Eosinophils % 1.7 % (0.1-12.0); Hematocrit 37.7 % (42.0-52.0); Hemoglobin 12.2 g/dL (14.1-18.0); Immature Granulocytes # 0.03 10^3uL; Immature Granulocytes % 0.3 %; Lymphocytes % 26.6 % (10-50); Mean Corpuscular HGB Conc 32.4 g/dL (31.8-35.4); Mean Corpuscular Hemoglobin 28.2 pg (27.0-31.2); Mean Corpuscular Volume 87.3 fl (80-94); Mean Platelet Volume 9.6 fl (7.4-10.4); Monocytes # 1.1 K/mm3 (0.1-1.0); Monocytes % 9.3 % (1.7-9.3); Neutrophils % 61.7 % (37.0-80.0); Nucleated Red Blood Cells # 0 10^3/uL; Nucleated Red Blood Cells % 0 %; Platelet Count 199 K/mm3 (142-424); Red Blood Count 4.32 M/mm3 (4.60-6.20); Red Cell Distribution Width 16.6 % (11.5-17.5); Red Cell Distribution Width-SD 53.4 fL; White Blood Count 11.3 K/mm3 (4.8-10.8)
[2025-03-12 17:39] LABS: Alanine Aminotransferase 12 U/L (12-78); Albumin Level 4.3 g/dl (3.5-5.0); Albumin/Globulin Ratio 1.7 (1.1-1.8); Alkaline Phosphatase 78 U/L (38-126); Anion Gap 10.3 mEq/L (5-15); Aspartate Amino Transferase 20 U/L (17-59); Bilirubin,Total 0.5 mg/dl (0.2-1.3); Blood Urea Nitrogen 32 mg/dl (9-20); Calcium 8.9 mg/dl (8.4-10.2); Carbon Dioxide 30 mmol/L (22.0-30.0); Chloride 100 mmol/L (98-107); Creatinine Clearance Estimated 28 mL/min (50-200); Estimated Glomerular Filt Rate 33 ml/min (>60); GFR (African American) 40 ML/MIN (>60); Globulin 2.6 g/dL (1.3-3.2); Glucose 91 mg/dl (74-100); Potassium 5.3 mmoL/L (3.5-5.1); Sodium 135 mmol/L (136-145); Total Protein,Serum 6.9 g/dl (6.3-8.2)
[2025-03-12 17:41] LABS: INR 1.05 (0.9-1.1); Prothrombin Time 11.6 seconds (10.1-12.5)
[2025-03-12 17:43] LABS: Adenovirus,PCR Not Detected (NotDetected); Bordetella Pertussis Not Detected (NotDetected); Chlamydophila Pneumoniae, PCR Not Detected (NotDetected); Coronavirus 19, PCR Not Detected (NotDetected); Coronavirus 229E Not Detected (NotDetected); Coronavirus NL63 Not Detected (NotDetected); Coronavirus OC43 Not Detected (NotDetected); Coronovirus HKU1,PCR Not Detected (NotDetected); Human Metapneumovirus Not Detected (NotDetected); Influenza A, PCR Not Detected (NotDetected); Influenza AH1, 2009 Not Detected (NotDetected); Influenza AH1, PCR Not Detected (NotDetected); Influenza AH3,PCR Not Detected (NotDetected); Influenza B, PCR Not Detected (NotDetected); Mycoplasma Pneumoniae, PCR Not Detected (NotDetected); Parainfluenza 1, PCR Not Detected (NotDetected); Parainfluenza 2, PCR Not Detected (NotDetected); Parainfluenza 3, PCR Not Detected (NotDetected); Parainfluenza 4, PCR Not Detected (NotDetected); Respiratory Syncytial Virus Not Detected (NotDetected); Rhinovirus/Enterovirus Not Detected (NotDetected)
[2025-03-12] MEDS: DEXAMETHASONE 4MG/ML 5ML MDV 10 MG IV (17:45)
[2025-03-12 17:51] LABS: NT Pro Brain Natriuretic Pep. 478 pg/mL (0-125); Troponin I 0.05 ng/ml (0.00-0.034)
[2025-03-12] MEDS: PIPERACILLIN/TAZO 3.375 GM in 0.9 % SODIUM CHLORIDE 50 ML IV (17:54)
[2025-03-12] MEDS: VANCOMYCIN HCL 2,500 MG in 0.9 % SODIUM CHLORIDE 500 ML 250 MG IV (17:55)
[2025-03-12 17:56] LABS: Procalcitonin 0.105 ng/mL (0.0-2.0)
--- NOTE | 2025-03-12 17:56 | PC.NURSE ---
called [facility] per Dr Lynn for transfer of pt for lung cancer with post obstructive pneumonia. [facility] advised they would call back.
[2025-03-12] MEDS: ACETAMINOPHEN 1,000MG/100ML VIAL 1000 MG IV (18:00)
[2025-03-12] MEDS: IPRATROPIUM/ALBUTEROL 3 ML NEB 9 ML IH (18:15)
[2025-03-12] MEDS: ETOMIDATE 40MG/20ML VIAL 30 MG IV (18:17)
[2025-03-12] MEDS: SUCCINYLCHOLINE 20MG/ML 10 ML MDV 150 MG IV (18:19)
--- NOTE | 2025-03-12 18:23 | XR_ITS ---
PROCEDURE INFORMATION: Exam: XR Chest Exam date and time: 03/12/2025 7:00 PM Age: 74 years old Clinical indication: Device placement; Ett placement (vent status); Additional info: Tube placement TECHNIQUE: Imaging protocol: Radiologic exam of the chest. Views: 1 view. COMPARISON: CT ANGIO CHEST 03/12/2025 5:33 PM FINDINGS: Tubes, catheters and devices: Endotracheal tube 4.5 cm above the lety. Additional tube identified projecting just to the left of the endotracheal tube, possibly extrinsic, trackable to the midthoracic level. It is unclear if this is a nasogastric tube, with no side port visualized. Correlate clinically. Lungs: Low lung volumes. Heart size and pulmonary vasculature accentuated by technique. Mild pulmonary arterial dilatation suggestive of pulmonary arterial hypertension is present, better appreciated on comparison CT angiogram. Patchy bilateral perihilar alveolar opacities probably related to hypoventilatory changes and subsegmental atelectasis based on the CT appearance, less likely perihilar infiltrates or edema. Pleural spaces: No pleural effusion. No pneumothorax. Heart/Mediastinum: No tracheal/mediastinal shift. Bones/joints: No acute osseous abnormalities are identified. Soft tissues: Extrinsic leads and pads noted. IMPRESSION: 1. Endotracheal tube tip 4.5 cm above the lety. 2. Tubing projecting just to the left of the endotracheal tube might be extrinsic although if there was and nasogastric tube placed consider additional radiograph of the lower chest/upper abdomen to assess position as its distal termination is not clearly identifiable 3. Low lung volumes and hypoventilatory changes.
--- NOTE | 2025-03-12 18:34 | PC.NURSE ---
Temp sensing johnson and OG (55 at teeth) placed placed by this RN
[2025-03-12 18:47] LABS: Microscopic, Urine URINE MICROSCOPIC (MICROSCOPIC)
[2025-03-12 18:49] LABS: Appearance,Urine CLEAR (Clear); Bilirubin,Urine Negative (Negative); Blood, Urine TRACE-L (Negative); Color,Urine YELLOW (Yellow); Glucose,Urine (UA) Negative (Negative); Ketones,Urine Negative (Negative); Leukocyte Esterase,Urine Negative (Negative); Nitrate,Urine Negative (Negative); Protein,Urine Negative (Negative); Urobilinogen,Urine 0.2 EU/dl (0.2)
[2025-03-12] MEDS: FENTANYL CITRATE/PF 1,000 MCG in 0.9 % SODIUM CHLORIDE 80 ML 1 MCG IV (18:55)
[2025-03-12 18:59] LABS: RBC,Urine Occasional #/hpf (0-3)
--- NOTE | 2025-03-12 19:07 | PC.NURSE ---
Patient was intubated with 150 of Succ and [address] Lynn intubated patient with 7.5 ETT at 21 at Teeth with RT at bedside. Propofol and Fentanyl drips were initiated as noted in DEC.
[2025-03-12] MEDS: propofoL 100 ML 13.61 MG IV (19:10)
--- NOTE | 2025-03-12 19:50 | PC.NURSE ---
[employer] crew at bed side for transport to ER
--- NOTE | 2025-03-13 23:50 | PC.NURSE ---
Lab called with blood culture results, Holland aware. Results called to Heraclio TOPETE RN
== END 2025-03-12 20:03 | disposition short-term general hospital (02) ==
PROVIDERS: Physician Assistant; Emergency Provider Emergency Medicine; PCP Family Medicine
DX: A41.9 Sepsis, unspecified organism (principal); J96.02 Acute respiratory failure with hypercapnia; C34.90 Malignant neoplasm of unspecified part of unspecified bronchus or lung; R79.89 Other specified abnormal findings of blood chemistry; R26.2 Difficulty in walking, not elsewhere classified; J44.9 Chronic obstructive pulmonary disease, unspecified; I10 Essential (primary) hypertension; E78.5 Hyperlipidemia, unspecified; Z87.891 Personal history of nicotine dependence
CPT/HCPCS: 0223U; 31500; 70450; 70496; 70498; 71045; 71275; 74174; 80053; 81001; 82803; 83880; 84145; 84484; 85025; 85610; 87040; 87633; 93005; 96365; 96366; 96375; 99291; J0131; J0330; J1100; J2543; J2704; J3010; J3370; J7040; Q9967

== ENCOUNTER 2025-04-16 09:30 | Inpatient (IN) | payer MEDICARE, SELFPAY ==
--- OUTSIDE RECORDS SUMMARY | 2025-03-12 20:41 | XMS_ITS | Encounter Summary ---
Author Organization [facility] Address [address] [place] [address] Care Team Providers Care Car Repairman Name Role Phone Joycelyn Montes PANKAJ Primary Care Provider [phone] Reason for Referral * Consultation (Routine) - Authorized Specialty Diagnoses / Procedures Referred By Jarod rod Referred To Contact Family Medicine Diagnoses Acute hypoxic respiratory failure Pneumonia of right lung due to infectious organism, unspecified part of lung Lung mass Pulmonary emphysema, unspecified emphysema type (CMS/HCC) Small cell carcinoma of right lung, unspecified part of lung Bernardo Chavez MD [address] [place] [address] Phone: tel: fax: Referral ID Status Reason Start Date Expiration Date V isits Requested Visits Authorized [id number] Authorized 03/17/2025 09/16/2026 1 1 * Home Health (Routine) - Authorized Specialty Diagnoses / Procedures Referred By Jarod rod Referred To Contact Home Health Services Diagnoses Acute hypoxic on chronic hypercapnic respiratory failure Bernardo Chavez MD [address] [place] [id number] Phone: tel: fax: Referral ID Status Reason Start Date Expiration Date Visits Requested Visits Authorized [id number] Authorized Specialty Services Required 03/16/2025 09/15/2026 999 999 Reason for Visit * Reason Comments Shortness of Breath * Auth/Cert (Routine) Specialty Diagnoses / Procedures Referred By Contac t Referred To Contact Diagnoses Pneumonia of right lung due to infectious organism, unspecified part of lung Acute hypoxic respiratory failure Acute hypoxic on chronic hypercapnic respiratory failure Pneumonia Mariah Mcgowan MD [address] [place] [address] Phone: tel: fax: [facility] Inpatient [address] [place] [address] Referral ID Status Reason Start Date Expiration Date Visits Re quested Visits Authorized [id number] 1 1 Encounter Details Date Type Department Care Team (Late st Contact Info) Description 03/12/2025 8:41 PM EDT - 03/17/2025 11:49 AM EDT Hospital Encounter [facility] Inpatient [address] [place] [id number] Staci Jones MD [address] [place] [address] Mariah Mcgowan MD [address] [place] [address] Gt De La Paz MD [address] [place] [address] [place] [phone] Delfino Aceves MD [address] [place] [address] Enrrique Duque MD [address] [place] [address] Bernardo Chavez MD [address] [place] [address] Pneumonia of right lung due to infectious organism, unspecified part of lung (Primary Dx); Acute hypoxic respiratory failure; Acute hypoxic on chronic hypercapnic respiratory failure; Lung mass; Pulmonary emphysema, unspecified emphysema type (CMS/HCC); Small cell carcinoma of right lung, unspecified part of lung Discharge Disposition: [place] [facility] [place] Tobacco Use Types Packs/Day Years Used Date Smoking Tobacco: Every Day Cigarettes Smokeless Tobacco: Never Alcohol Use Standard Drinks/Week Comments Never 0 (1 standard drink = 0.6 oz pur e alcohol) Humiliation, Afraid, Rape, a nd Kick questionnaire Answer Date Recorded Within the last year, have y ou been afraid of your partner or ex-partner? Patient unable to answer 03/15/2025 Within the last year, have y ou been humiliated or emotionally abused in other ways by your partner or ex-partner? Patient unable to answer 03/15/2025 Within the last year, have y ou been kicked, hit, slapped, or otherwise physically hurt by your partner or ex-partner? Patient unable to answer 03/15/2025 Within the last year, have y ou been raped or forced to have any kind of sexual activity by your partner or ex-partner? Patient unable to answer 03/15/2025 Social Connection and Isolation Panel Answer Date Recorded Frequency of Communication with Friends and Fami ly Not on file 03/15/2025 Frequency of Social Gatherings with Friends and Family Not on file 03/15/2025 Attends Baptism Services Not on file 03/15 Active Member of Clubs or Organizations Not on f ile 03/15/2025 Attends Club or Organization Meetings Not on emiliana e 03/15/2025 Are you , , di vorced, , never , or living with a partner? 03/15/2025 Overall Financial Resource Strain (CARDIA) Answe r Date Recorded How hard is it for you to pa y for the very basics like food, housing, medical care, and heating? Somewhat hard 03/15/2025 PHQ-2 Answer Date Recorded Patient Health Questionnaire-2 Score 0 04/07/2024 Hunger Vital Sign Answer Date Recorded Within the past 12 months, y ou worried that your food would run out before you got the money to buy more. Never true 03/15/20 25 Within the past 12 months, t he food you bought just didn't last and you didn't have money to get more. Never true 03/15/2025 PRAPARE - Transportation Answer Date Re corded In the past 12 months, has l ack of transportation kept you from medical appointments or from getting medications? No 02/25 In the past 12 months, has l ack of transportation kept you from meetings, work, or from getting things needed for daily living? No 03/15/2025 Housing Stability Vital Sign Answer Rodolfo e Recorded In the last 12 months, was t here a time when you were not able to pay the mortgage or rent on time? No 03/15/2025 In the past 12 months, how m any times have you moved where you were living? 1 03/15/2025 At any time in the past 12 m [facility], were you homeless or living in a detention (including now)? No 03/15/2025 Utilities Answer Date Recorded In the past 12 months has th e electric, gas, oil, or water company threatened to shut off services in your home? No 03/15/2025 Sex and Gender Information Value Date Recorded Sex Assigned at Not on file Legal Sex Male 7:51 PM EDT Gender Identity Not on file Sexual Orientation Not on file documented as of this encounter Last Filed Vital Signs Vital Sign Reading Time Taken Comments Blood Pressure 138/74 03/17/2025 7:31 AM EDT Pulse 70 03/17/2025 9:11 AM EDT Temperature 36.9 C (98.5 F) 03/17/2025 7:31 AM EDT Respiratory Rate 18 03/17/2025 9:11 AM EDT Oxygen Saturation 98% 03/17/2025 9:11 AM EDT Inhaled Oxygen Concentration - - Weight 105 kg (231 lb 11.3 oz) 03/16/2025 6:00 A M EDT Height 175.3 cm (5' 9.02 ) 03/15/2025 7:00 AM ED T Body Mass Index 34.2 03/15/2025 7:00 AM EDT documented in this encounter Functional Status * Calculated C-SSRS Risk Score (Lifetime/Recent) Answer Date of Assessment Author No Risk Indicated 03/16/2025 8:00 PM EDT Ney Odom * Question Answer Date of Assessment Author 1. Wish to be (Past 1 Month) No 025 8:00 PM EDT Becka Odom 2. Non-Specific Active Suici андрей Thoughts (Past 1 Month) No 03/16/2025 8:00 PM EDT Becka Odom 6. Suicidal Behavior (Lifetime) No 8:00 PM EDT Becka Odom documented as of this encounter Discharge Instructions * Discharge Instructions* Bernardo Chavez MD - 03/17/2025 10:44 AM EDT Outpatient Follow-up - Please follow up with your primary care physician within 1-2 weeks of discharge. Inform your primary care physician of this hospitalization. - Please reconsider treatment options for your small cell lung cancer. I wish you the absolute best. - I decreased your daily aspirin from 324mg to 81mg daily. You can pick this up at any local pharmacy. - Continue your current medications per discharge instructions. - Please watch for these problems: Fever, Chills, Nausea, Vomiting, Shortness of Breath, ProductiveCough, Chest Pain/Discomfort, Abdominal Pain, Active Bleeding or Bloody urine/stool. documented in this encounter Medications at Time of Discharge albuterol 108 (90 Base) MCG/ACT inhaler INHALE 2 PUFFS BY MOUTH EVERY 4 TO 6 HOURS NEEDED FOR SHORTNESS OF BREATH allopurinol (Zyloprim) 300 MG tablet TAKE 1 TABLET BY MOUTH DAILY FOR GOUT amitriptyline (Elavil) 25 MG tablet Take 1 tablet by mouth nightly. amLODIPine (Norvasc) 10 MG tablet Take 1 tablet by mouth nightly. 02/09/2024 aspirin 81 MG chewable tablet Chew 1 tablet daily. 03/18/2025 atorvastatin (Lipitor) 20 MG tablet Take 1 tablet by mouth daily. 03/08/2024 dicyclomine (Bentyl) 10 MG capsule Take 1 capsule by mouth 2 times a day. gabapentin (Neurontin) 600 MG tablet Take 1 tablet by mouth 4 times a day. 03/16/2024 HYDROcodone-acet aminophen (Dolores) 10-325 MG tablet Take 1 tablet by mouth every 6 hours as needed. linaGLIPtin (Tradjenta) 5 MG tablet Take 1 tablet by mouth daily. pantoprazole (Protonix) 40 MG EC tablet Take 1 tablet by mouth daily. tadalafil (Cialis) 5 MG tablet Take 1 tablet by mouth every morning. 03/23/2024 tamsulosin (Flomax) 0.4 MG 24 hr capsule Take 1 capsule by mouth nightly. 03/29/2024 tiotropium (Spiriva HandiHaler) [address] 1 capsule into inhaler and inhale daily. 30 capsule 03/17/2025 documented as of this encounter Miscellaneous Notes * Shaista Adam RN - 03/17/2025 11:17 AM EDT Images from the original note were not included. [id number] Learning About Respiratory Failure What is respiratory failure? Your lungs give your body oxygen when you breathe. They also remove the waste product carbon dioxide from your body. Respiratory failure happens when the lungs aren't able to move enough oxygen into the blood and move enough carbon dioxide out of the blood. This is a severe problem that may need ivania treated in intensive care. Many things can cause lung failure. They include pneumonia and other serious infections. The doctorwill look for the cause of the problem and then treat it if possible. How is it treated? To help your lungs get enough oxygen, your doctor may use a few devices. These vary in how much oxygen they give and how they help you breathe. They are: ?? A nasal cannula (say REINIER-yuh-bhargav ). This is a thin tube with two prongs that fit just inside your nose. ?? A special face mask that delivers more oxygen. There are different kinds. A face mask with a bagon one end is called a non-rebreather mask. ?? A high-flow nasal cannula. It can warm and wet the oxygen it delivers, so getting high amounts of oxygen feels better. ?? A face mask that gives you oxygen through a bilevel positive airway pressure (BiPAP) machine. Ituses different air pressures when you breathe in and out. ?? A ventilator that helps you breathe or that breathes for you. It controls how much air and oxygen flow into your lungs. This machine requires a breathing tube in your windpipe. It can be uncomfortable, so you may get medicine to help you relax or sleep. You also will get fluid through an intravenous (I.V.) tube. You will get regular tests to see how much oxygen is in your blood. Tests also can show how well the lungs are working. These tests help your doctor adjust the machines and the oxygen supply. The doctor will watch you closely. Current as of: June 01, 2023 Content Version: 14.0 Care instructions adapted under license by your healthcare professional. If you have questions about a medical condition or this instruction, always ask your healthcare professional. [employer] disclaims any warranty or liability for your use of this information. ?? [id number] [employer]. * Progress Notes - Laurie Laguna - 03/17/2025 10:51 AM EDT Case Management Discharge Note Last Santos 74 y.o. male CSN: [id number] Admission: 03/12/2025 8:41 PM Primary Problem: Acute hypoxic on chronic hypercapnic respiratory failure Primary Attendant [facility]: Primary Caregiver: Self Assistance Available at Discharge: Availability of Care Givers (#Hours): 24 hours (Spouse available as needed.) Family/Attendant Children[facility] Institution(s) Willingness Assessed to care for patient at home: Yes Housing Circumstances-Z Codes: Housing Circumstances (select all that apply): None Applicable Patient Referred to Financial or Community Resources: N/A Discharge Facility/Level of Care Needs: Discharge Facility/Level of Care Needs: 1-Home or Self Care Patient's Choice of Community Agency(s): DME- [facility] Patient/Family Anticipated Services at Transition: Patient/Family Anticipated Services at Transition: home health care (HH Provider- Cheyannes) They will contact patient to set up for initial visit. SN- post hospital assessment and medication review, PT/OT to treat and evaluate. DME/Equipment Needed after Discharge: Equipment Currently Used at Home: cane, straight Equipment Needed After Discharge: oxygen, walker, rolling (Provider- [facility]- Home O2 and RW- to be delivered to bedside prior to discharge.) Readmission Within the Last 30 Days: Readmission Within the Last 30 Days: no previous admission in last 30 days Medicare Documentation: Medicare Second Notice?: Yes Date Second Notice Completed: 03/17/25 Time Second Notice Completed: 904 Medicare Second Notice Recieved By: Patient spouse, CM placed copy in patients chart [facility] [address], [place] [address] Follow up Provider for DME- Home Oxygen and Rolling Walker, Portable tank to be delivered to bedside prior todischarge. Syeda from [facility] will call Spouse to see if they want RW delivered to bedside or home. [employer] [facility] [employer] [address] [place] [address], [facility] [address] [place] [address] Follow up Provider for Home Health SN for post hospital assessment and medication review, PT/OT to evaluate and treat. They will call you to schedule initial visit. Please call them with any questions- [phone] Francisco Lynn MD [address] [place] [address] [place] [address] Discharge Transportation: Transportation Anticipated: family or friend will provide Transportation Home at Discharge: Family/Friend will Provide Has discharge transport been arranged?: No Follow Up Transport: Transportation Needed to Follow up Appoinments: Family/Friend will Provide Additional Comments: Per MD patient is medically ready for discharge on this date. No further needsat this time. CM will continue to follow until discharged. Laurie Laguna * Discharge Summary - Bernardo Chavez MD - 03/17/2025 10:44 AM EDT Hospitalization Admit Date/Time: 03/12/2025 8:41 PM Admitting Attending: Mariah Mcgowan Discharge Date: 03/17/25 Discharge Attending Physician: Bernardo Chavez MD PCP name and Address: Joycelyn Montes PA [address] [facility] [address] Referring provider name and address: Francisco Lynn MD [address] [place] [address] [place] [address] Chief Concern, Brief History of Present Illness, and Hospital Course Last Santos is a 74 y.o. male w/ relevant hx of CAD (s/p inferior ID), COPD(no home O2), BPH,HTN, HLD, DM2, recent diagnosis of small cell lung cancer (diagnosed Feburary, RUL hypermetabolic nodule, R peritracheal and hilar adenopathy) who presented to OSH for acute hypoxic respiratory failure requiring intubation. He was treated for PNA, extubated 03/15, and weaned to 3-4L NC on day of discharge. HH PT/OT set up with home oxygen. [facility] consulted to discuss treatment options and patient continued to decline them. #AHRF req MV (s/p extubation) 2/ PNA, resolving #Stage III Small Cell Lung Cancer - Biopsy results are in media tab--small cell lung cancer - Was reportedly supposed to undergo chemotherapy and radiation treatment with local oncologist in [place] (Liz Bryan) but declined treatment- takes Ivermectin at home, still not wanting to do chemo/radiation - Extubated 03/15 - down to 3-4L NC at time of discharge - BAL negative for malignancy and no organisms. No brain mets on MRI head - Completed CAP tx 03/16 w/ ceftriaxone/azith #CKD stage IIIb/IV #Hyperkalemia, resolved - Scr 2.08 on arrival, reported baseline has been 1.7-2 over past year or so. At baseline. HyperK resolved #Hx of COPD, unclear stage #Hx of severe tobacco use - Known COPD not on home oxygen, no previous PFT's in chart - reports 50+ year hx of smoking 2 ppd #Focal seizure like activity - patient loaded with Keflorinara - Miguel Angel d/c'd, no further concerns for seizures Surgeries and Procedures Procedures performed in this encounter Procedures Bronchoscopy Critical Care Critical Care Critical Care Medication List .. albuterol 108 (90 Base) MCG/ACT inhaler INHALE 2 PUFFS BY MOUTH EVERY 4 TO 6 HOURS NEEDED FOR SHORTNESS OF BREATH allopurinol 300 MG tablet Commonly known as: Zyloprim TAKE 1 TABLET BY MOUTH DAILY FOR GOUT amitriptyline 25 MG tablet Commonly known as: Elavil Take 1 tablet by mouth nightly. amLODIPine 10 MG tablet Commonly known as: Norvasc Take 1 tablet by mouth nightly. aspirin 81 MG chewable tablet Chew 1 tablet daily. Start taking on: March 18, 2025 atorvastatin 20 MG tablet Commonly known as: Lipitor Take 1 tablet by mouth daily. dicyclomine 10 MG capsule Commonly known as: Bentyl Take 1 capsule by mouth 2 times a day. gabapentin 600 MG tablet Commonly known as: Neurontin Take 1 tablet by mouth 4 times a day. HYDROcodone-acetaminophen 10-325 MG tablet Commonly known as: Dolores Take 1 tablet by mouth every 6 hours as needed. linaGLIPtin 5 MG tablet Commonly known as: Tradjenta Take 1 tablet by mouth daily. pantoprazole 40 MG EC tablet Commonly known as: Protonix Take 1 tablet by mouth daily. tadalafil 5 MG tablet Commonly known as: Cialis Take 1 tablet by mouth every morning. tamsulosin 0.4 MG 24 hr capsule Commonly known as: Flomax Take 1 capsule by mouth nightly. tiotropium 18 MCG inhalation capsule Commonly known as: Spiriva HandiHaler Place 1 capsule into inhaler and inhale daily. Where to Get Your Medications These medications were sent to [facility] [place], [place] [address] [facility] [address] tiotropium 18 MCG inhalation capsule Information about where to get these medications is not yet available Ask your nurse or doctor about these medications aspirin 81 MG chewable tablet Discharge Diagnosis Medical Problems Active and Resolved Hospital Problems Hospital * (Principal) Acute hypoxic on chronic hypercapnic respiratory failure Acute hypoxic respiratory failure Small cell carcinoma of right lung Post Discharge Instructions Outpatient Follow-up - Please follow up with your primary care physician within 1-2 weeks of discharge. Inform your primary care physician of this hospitalization. - Please reconsider treatment options for your small cell lung cancer. I wish you the absolute best. - I decreased your daily aspirin from 324mg to 81mg daily. You can pick this up at any local pharmacy. - Continue your current medications per discharge instructions. - Please watch for these problems: Fever, Chills, Nausea, Vomiting, Shortness of Breath, ProductiveCough, Chest Pain/Discomfort, Abdominal Pain, Active Bleeding or Bloody urine/stool. Outpatient Follow-Up No future appointments. Test Results Pending At Discharge Pending Labs Order Current Status AFB Culture, Respiratory Source and Acid Fast Stain Preliminary result Blood Culture (Aerobic/Anaerobet Set) Preliminary result Blood Culture (Aerobic/Anaerobet Set) Preliminary result Fungal Culture, Respiratory and ADAIR Preliminary result Pertinent Physical Exam At Time of Discharge Physical Exam Constitutional: General: He is not in acute distress. Appearance: Normal appearance. HENT: Head: Normocephalic and atraumatic. Eyes: General: No scleral icterus. Conjunctiva/sclera: Conjunctivae normal. Pulmonary: Effort: Pulmonary effort is normal. No respiratory distress. Comments: 4L NC satting 96-97% Abdominal: General: Abdomen is flat. There is no distension. Neurological: General: No focal deficit present. Mental Status: He is alert and oriented to person, place, and time. Psychiatric: Mood and Affect: Mood normal. Behavior: Behavior normal. Discharge Disposition/Condition Disposition: Home with Home Health Condition: Stable (s/sx potential problems absent or manageable) I spent >30 minutes of patient care and instruction time in preparation for this discharge. Bernardo Chavez MD * Care Plan - Shaista Guzman RN - 03/17/2025 10:21 AM EDT Problem: Infection Goal: Absence of Infection Signs and Symptoms Outcome: Ongoing, Progressing Problem: Mechanical Ventilation Invasive Goal: Effective Communication Outcome: Ongoing, Progressing Goal: Mechanical Ventilation Liberation Outcome: Ongoing, Progressing Goal: Absence of Device-Related Skin and Tissue Injury Outcome: Ongoing, Progressing Goal: Absence of Ventilator-Induced Lung Injury Outcome: Ongoing, Progressing Problem: Fall Injury Risk Goal: Absence of Fall and Fall-Related Injury Outcome: Ongoing, Progressing Problem: Restraint, Nonviolent Goal: Absence of Harm or Injury Outcome: Ongoing, Progressing Problem: Oral Intake Inadequate Goal: Improved Oral Intake Outcome: Ongoing, Progressing Problem: Self-Care Deficit Goal: Improved Ability to Complete Activities of Daily Living Outcome: Ongoing, Progressing Problem: Mobility Impairment Goal: Optimal Mobility Outcome: Ongoing, Progressing * Care Plan - Becka Odom - 03/17/2025 5:03 AM EDT Problem: Infection Goal: Absence of Infection Signs and Symptoms Outcome: Ongoing, Progressing Problem: Mechanical Ventilation Invasive Goal: Effective Communication Outcome: Ongoing, Progressing Goal: Mechanical Ventilation Liberation Outcome: Ongoing, Progressing Goal: Absence of Device-Related Skin and Tissue Injury Outcome: Ongoing, Progressing Goal: Absence of Ventilator-Induced Lung Injury Outcome: Ongoing, Progressing Problem: Fall Injury Risk Goal: Absence of Fall and Fall-Related Injury Outcome: Ongoing, Progressing Problem: Restraint, Nonviolent Goal: Absence of Harm or Injury Outcome: Ongoing, Progressing Problem: Oral Intake Inadequate Goal: Improved Oral Intake Outcome: Ongoing, Progressing Problem: Self-Care Deficit Goal: Improved Ability to Complete Activities of Daily Living Outcome: Ongoing, Progressing Problem: Mobility Impairment Goal: Optimal Mobility Outcome: Ongoing, Progressing * Progress Notes - Laurie Laguna - 03/16/2025 12:55 PM EDT Case Management Adult Progress Note Last Santos 74 y.o. male CSN: [id number] Admission: 03/12/2025 8:41 PM Primary Problem: Acute hypoxic on chronic hypercapnic respiratory failure Anticipated Discharge Date: Potentially tomorrow, pending progress. Has Discharge Plans Changed? No Additional Comments: Per MD during morning Team meeting, patient could potentially be ready for discharge tomorrow, pending progress. PT/OT recommendations are HH PT/PT, DME- Rolling Walker. Patient choice for DME provider is [facility]. CM sent order and referral for RW via fax: [phone],Attn- Syeda. CM also sent referral for HH: Currently no accepting facilities, will continue to monitor. If no accepting facility MD can provide patient with outpatient PT/OT Script prior to discharge. CM will continue to follow and accept as needed. Laurie Laguna * Care Plan - Shaista Guzman RN - 03/16/2025 10:33 AM EDT Problem: Infection Goal: Absence of Infection Signs and Symptoms Outcome: Ongoing, Progressing Problem: Mechanical Ventilation Invasive Goal: Effective Communication Outcome: Ongoing, Progressing Goal: Mechanical Ventilation Liberation Outcome: Ongoing, Progressing Goal: Absence of Device-Related Skin and Tissue Injury Outcome: Ongoing, Progressing Goal: Absence of Ventilator-Induced Lung Injury Outcome: Ongoing, Progressing Problem: Fall Injury Risk Goal: Absence of Fall and Fall-Related Injury Outcome: Ongoing, Progressing Problem: Restraint, Nonviolent Goal: Absence of Harm or Injury Outcome: Ongoing, Progressing Problem: Oral Intake Inadequate Goal: Improved Oral Intake Outcome: Ongoing, Progressing Problem: Self-Care Deficit Goal: Improved Ability to Complete Activities of Daily Living Outcome: Ongoing, Progressing Problem: Mobility Impairment Goal: Optimal Mobility Outcome: Ongoing, Progressing * Progress Notes - Bernardo Chavez MD - 03/16/2025 7:45 AM EDT Hospital Medicine Progress Note Subjective Length of stay: 4 days HPI: NAEO. Transfer note reviewed. Patient's present. They are hoping to be able to discharge tomorrow. Voiced that if we are able to wean oxygen a little bit we would likely be able to d/c. Review of Systems All other systems reviewed and are negative. Objective Last Recorded Vitals Blood pressure (!) 148/77, pulse 80, temperature 36.7 ??C (98.1 ??F), resp. rate 13, height 1.753 m(5' 9.02 ), weight 105 kg (231 lb 11.3 oz), SpO2 91%. Physical Exam Constitutional: General: He is not in acute distress. Appearance: Normal appearance. HENT: Head: Normocephalic and atraumatic. Eyes: General: No scleral icterus. Conjunctiva/sclera: Conjunctivae normal. Cardiovascular: Rate and Rhythm: Normal rate and regular rhythm. Pulmonary: Effort: Pulmonary effort is normal. No respiratory distress. Breath sounds: Normal breath sounds. Comments: Distant breath sounds Abdominal: General: Abdomen is flat. There is no distension. Musculoskeletal: Right lower leg: No edema. Skin: General: Skin is warm and dry. Neurological: General: No focal deficit present. Mental Status: He is alert and oriented to person, place, and time. Psychiatric: Mood and Affect: Mood normal. Behavior: Behavior normal. Relevant Results Results from last 7 days Lab Units 03/16/25 0607 WBC 10*3/uL 8.70 HEMOGLOBIN g/dL 12.5* HEMATOCRIT % 39.6* PLATELETS 10*3/uL 199 Results from last 7 days Lab Units 03/16/25 0607 03/14/25 0034 03/13/25 0057 SODIUM mmol/L 141 < > 136 POTASSIUM mmol/L 4.6 < > 4.5 CHLORIDE mmol/L 103 < > 99 CO2 mmol/L 29 < > 25 BUN mg/dL 25* < > 31* CREATININE mg/dL 1.49* < > 2.10* CALCIUM mg/dL 8.9 < > 9.2 BILIRUBIN TOTAL mg/dL -- -- 0.3 ALKALINE PHOSPHATASE U/L -- -- 77 ALT U/L -- -- 10 AST U/L -- -- 16 GLUCOSE mg/dL 92 < > 148* < > = values in this interval not displayed. Results from last 7 days Lab Units 03/12/25 2048 INR 1.2* Results from last 7 days Lab Units 03/13/25 0057 MAGNESIUM mg/dL 1.7* Assessment/Plan Last Santos is a 74 y.o. male w/ relevant hx of CAD (s/p inferior ID), COPD(no home O2), BPH,HTN, HLD, DM2, recent diagnosis of lung cancer (diagnosed Feburary, RUL hypermetabolic nodule, R peritracheal and hilar adenopathy) who presented to OSH for acute hypoxic respiratory failure requiring intubation. #AHRF req MV (s/p extubation) 2/2 PNA, resolving #Stage III Small Cell Lung Cancer - Biopsy results are in media tab--small cell lung cancer - Was reportedly supposed to undergo chemotherapy and radiation treatment with local oncologist in [place] (Liz Bryan) but declined treatment- takes Ivermectin at home, still not wanting to do chemo/radiation - Extubated 03/15 - down to 6L NC today - BAL negative for malignancy and no organisms. No brain mets on MRI head - Met SIRS criteria on arrival with tachycardia and tachypnea, possible pulmonary source given chest imaging findings - BAL with no growth, Strep pneumo and legionella antigens negative, MRSA nares negative, Viral respiratory panel negative - Completed azithromycin. PLAN - Wean NC as tolerated, goal SpO2 88% given hx of COPD - Med Onc talked to patient, did not want treatment - Finished Rocephin 03/16 #CKD stage IIIb/IV #Hyperkalemia, resolved - Scr 2.08 on arrival, reported baseline has been 1.7-2 over past year or so. At baseline. HyperK resolved. - UA notable for leukocytes, blood, protein, no bacteria PLAN - Monitor intake and output - Avoid nephrotoxic agents, trend BMP #Hx of COPD, unclear stage #Hx of severe tobacco use - Known COPD not on home oxygen, no previous PFT's in chart - reports 50+ year hx of smoking 2 ppd - Continue prn duonebs #Focal seizure like activity - patient loaded with Keppra PLAN - Keppra d/c'd, no further concerns for seizures Chronic Medical Problems #HTN- restarted 1/ home dose amlodipine #HLD- statin #BPH- flomax #T2DM- SSI, neuropathy #GERD- PPI #Chronic pain- home opioids F: PO E: replete prn N: Reg DVT ppx: SQH Code Status: Full Code Discharge Planning Anticipated discharge to: Home w/ assist, possibly 03/17 Barriers to discharge: improvement in oxygenation Bernardo Chavez MD * Clinician Note - Enrrique Duque MD - 03/15/2025 11:03 PM EDT Handoff received from MICU for patient being transferred to Seen at bedside, satting>92% on 6L, extubated 03/14. Plan of care per MICU note. * Transfer of Care - Lay Clark DO - 03/15/2025 11:02 PM EDT Images from the original note were not included. Medicine ICU Transfer Note Summary of Hospital Course: Mr. Last Santos is a 74 yo M w/ PMH of recently diagnosed SCLC in 11/2024 via lung biopsy not currently on treatment, CAD s/p inferior ID in 2007, COPD not on home oxygen, BPH, HTN, HLD, and T2DM complicated by peripheral neuropathy who presented to from OSH for acute hypoxic respiratory failure requiring intubation and MV. Initially presented to OSH for complaints of worsening confusion and somnolence at home along with cough and dyspnea. Was found to be hypoxic in the 60's on arrival toOSH and was intubated for airway protection and hypoxia. CT chest imaging done there revealed R sided lung mass w/ possible post-obstructive PNA. Lung mass was originally diagnosed in 11/2024 via PET scan. He underwent lung biopsy at that time which revealed SCLC, he was offered chemotherapy and radiation but the patient declined and had been using Ivermectin and apricot pits at home. During his hospital stay, he underwent a bronchoscopy which was negative for pathogens. He was extubated on 03/14 and oxygen saturations have been weaned down now to NC, was not on home oxygen previously. He had an MRI brain done to evaluate for possible brain metastasis although his recent CT head did not reveal findings of large brain lesions. MRI head was negative for metastasis. He was treatedwith a course of CTX for possible CAP w/ end date of 03/16. Oncology was consulted to discuss possible treatment options with the patient and his , however the patient does not want to currently undergo any cancer treatment. Patient is being transferred from ICU Team 2 to: Team 8 Major Active Problems: Acute hypoxic respiratory failure requiring NC, Community Acquired PNA, Acute on Chronic Debility Major Resolved Problems: ICU problems that resolved during admission but are important to be aware of: acute hypoxic respiratory failure requiring MV Antibiotics being administered: Abx CTX for indication of CAP, stop date 03/16 Patient was intubated during this stay. Date of extubation 03/14 Patient was not in shock during this stay Other Follow up items (Studies,consults, labs, imaging): PT/OT consult for possible rehab Patient's condition at Transfer: Patient's oxygen requirement is currently 6L NC and is not expected to need oxygen at DC. Nasal cannula 6L Liters at rest, 6L Liters with activity Likely needs home oxygen evaluation Patient does not have a grant Patient has following lines/tubes: PIV Indwelling Catheter/device: Insertion date: 03/13 Removal date: 5/19 Patient has not had cognitive impairment Patient does require telemetry PT, OT is following patient Patient's current diet is: Dietary Orders (From admission, onward) Start Ordered 03/15/25 1056 Adult diet Diet texture: Regular (Adult Diet Panel) Diet effective now References: IDDSI Diet Texture Guide Question: Diet texture Answer: Regular 03/15/25 1055 DVT Prophylaxis: Anticoagulant/Antiplatelet (From admission, onward) Start Dose/Rate Route Frequency Ordered Stop 03/13/25 0900 heparin (porcine) injection 5,000 Units 5,000 Units Subcutaneous Every 8 hours scheduled 03/13/25 0010 Patient Disposition: The current anticipated discharge disposition is acute rehab vs home in approximately 1-2 days pending supplemental oxygen weaning Discharge Planning Needs: Discharge Recommendation: Home with assistance, Home health PT, Home health OT Post hospital follow up appointments needed are: No follow-ups on file. Handoff information: Locke exam findings at the time of transfer are: Physical Exam Constitutional: General: He is not in acute distress. Appearance: Normal appearance. Cardiovascular: Rate and Rhythm: Normal rate and regular rhythm. Heart sounds: No murmur heard. No gallop. Pulmonary: Effort: Pulmonary effort is normal. No respiratory distress. Breath sounds: No wheezing. Abdominal: General: Abdomen is flat. There is no distension. Palpations: Abdomen is soft. Tenderness: There is no abdominal tenderness. Musculoskeletal: Right lower leg: No edema. Left lower leg: No edema. Skin: General: Skin is warm and dry. Findings: No rash. Neurological: General: No focal deficit present. Mental Status: He is alert. Mental status is at baseline. Psychiatric: Mood and Affect: Mood normal. Behavior: Behavior normal. The patient primary contact is: Extended Emergency Contact Information Primary Emergency Contact: CRYSTAL SANTOS Mobile Relation: Spouse [place] Cutter needed? No Patient's HCPOA: is same as above I have spoken with and given verbal consent checkout to the primary receiving provider: Dr. Duque * Consults - Fabi Corona MBBS - 03/15/2025 6:20 PM EDTAssociated Order(s): Inpatient consult to Oncology Images from the original note were not included. Inpatient consult to Oncology Consult performed by: Fabi Corona MBBS Consult ordered by: Delfino Aceves MD Reason For Consult Small cell lung cancer Requesting Service: 03/15/2025 Requested Date/Time: 03/15/2025 History Of Present Illness Last Santos is a 74 y.o. male presenting with shortness of breath. Patient has significant past medical history of CAD, COPD, BPH, hypertension, hyperlipidemia, type 2 diabetes who presented from [facility] for acute hypoxic respiratory failure requiring intubation and mechanical ventilation and concern for postobstructive pneumonia. The reported that patient was somnolent for the past few days and had worsening shortness of breath. Of note, patient was diagnosed with cancer in November 2024. PET revealed hypermetabolic right upper lobe nodule with right paratracheal and hilar adenopathy concerning for regional metastatic adenopathy. Patient declined both radiotherapy and chemotherapy and was on home ivermectin, fenbendazole as well as apricot pits. On arrival at , patient was already intubated and mechanically ventilated. CT from outside hospital on comparison with his diagnostics imaging revealed progression of disease in the mediastinal lymph nodes. Patient was continued on IV antibiotics and was extubated on 03/15 placed on high-flow nasal cannula during my interview, patient was on nasal cannula sitting upright in chair alert and oriented x3. We were called by the MICU team for further chemotherapy discussions. Past Medical History He has a past medical history of Arteriosclerosis of coronary artery (01/03/2016), Benign prostatichyperplasia with urinary obstruction (01/03/2016), Cervical radiculopathy at C5 (03/15/2025), Cervicogenic headache (03/15/2025), COPD (chronic obstructive pulmonary disease) with emphysema (CMS/HCC) (03/15/2025), Diabetes ([facility]), Diastolic dysfunction (03/15/2025), Essential hypertension (01/03/2016), High blood pressure, History of heart artery stent (03/15/2025), History of myocardial infarction (01/03/2016), Hyperlipidemia (01/03/2016), Impingement syndrome, shoulder, left (03/15/2025), Knee pain (01/03/2016), and Myocardial infarction ([facility]). Surgical History He has a past surgical history that includes Skin cancer excision (2020); Cardiac catheterization; and Coronary stent placement (2009). Family History Family History Problem Relation Name Age of Onset Malig Hyperthermia Neg Hx Anesthesia problems Neg Hx Social History He reports that he has been smoking cigarettes. He has never used smokeless tobacco. He reports that he does not drink alcohol and does not use drugs. Allergies Fluticasone Medications Current Medications[1] Review of Systems Review of Systems Constitutional: Positive for activity change and fatigue. Respiratory: Positive for shortness of breath. Physical Exam Physical Exam Constitutional: Appearance: He is obese. Eyes: Pupils: Pupils are equal, round, and reactive to light. Cardiovascular: Rate and Rhythm: Normal rate and regular rhythm. Pulmonary: Effort: Respiratory distress present. Abdominal: General: Abdomen is flat. Skin: General: Skin is warm. Neurological: General: No focal deficit present. Last Recorded Vitals Blood pressure (!) 169/74, pulse 87, temperature 36.8 ??C (98.2 ??F), temperature source Axillary, resp. rate 16, height 1.753 m (5' 9.02 ), weight 108 kg (238 lb 5.1 oz), SpO2 95%. RELEVANT RESULTS CBC WBC 8.63 Hgb 12.8 PLT 207 HCT 40.0 Lab Results Component Value Date NEUTROABS 7.72 (H) 03/12/2025 BASIC METABOLIC PANEL Na 141 Cl 102 BUN 35 Gluc 89 K 4.6 Co2 28 Creat 1.75 LIVER FUNCTION TESTING Tot Prot 6.5 AST 16 Tot bili 0.3 ALT 10 Alkphos 77 Ca 9.1 Mg 1.7 Phos 2.8 === 03/12/25 = PROCEDURE: PET/CT IMAGING, SKULL BASE TO MID THIGH INDICATION: Pulmonary nodule. TECHNIQUE: 16.36 mCi of 18-FDG was injected intravenously with a fasting blood glucose of 106 mg/dl. PET/CT images were obtained from skull base to mid thigh. COMPARISON: None FINDINGS: There is no FDG avid cervical lymphadenopathy. There is a hypermetabolic nodule in the right upper lobe seen on image #56 measuring 1.5 cm with a maximum SUV of 5.3. There is hypermetabolic right paratracheal and right hilar adenopathy. Right paratracheal hypermetabolism has a maximum SUV of 8.2 corresponding to a 2.0 cm lymph node seen on image #70. Hypermetabolism within the right hilum has a maximum SUV of 7.7 corresponding to a 2.4 cm lymph node seen on image #74. The liver, spleen, renal collecting systems, and bladder demonstrate expected FDG uptake. There is no suprarenal hypermetabolism to suggest adrenal metastasis. GI uptake is normal. There is no hypermetabolic abdominal or pelvic lymphadenopathy. No hypermetabolic bone lesions are identified. Procedure Note Gael Carreon MD - 12/09/2024 PROCEDURE: PET/CT IMAGING, SKULL BASE TO MID THIGH INDICATION: Pulmonary nodule. TECHNIQUE: 16.36 mCi of 18-FDG was injected intravenously with a fasting blood glucose of 106 mg/dl. PET/CT images were obtained from skull base to mid thigh. COMPARISON: None FINDINGS: There is no FDG avid cervical lymphadenopathy. There is a hypermetabolic nodule in the right upper lobe seen on image #56 measuring 1.5 cm with a maximum SUV of 5.3. There is hypermetabolic right paratracheal and right hilar adenopathy. Right paratracheal hypermetabolism has a maximum SUV of 8.2 corresponding to a 2.0 cm lymph node seen on image #70. Hypermetabolism within the right hilum has a maximum SUV of 7.7 corresponding to a 2.4 cm lymph node seen on image #74. The liver, spleen, renal collecting systems, and bladder demonstrate expected FDG uptake. There is no suprarenal hypermetabolism to suggest adrenal metastasis. GI uptake is normal. There is no hypermetabolic abdominal or pelvic lymphadenopathy. No hypermetabolic bone lesions are identified. IMPRESSION: Hypermetabolic right upper lobe nodule highly concerning for neoplasm. Hypermetabolic right peritracheal and hilar adenopathy likely representing regional metastatic adenopathy. === 03/12/25 === MR HEAD WO IV CONTRAST - Narrative - CLINICAL INDICATION: Mental status change, unknown cause TECHNIQUE: Multiplanar multiecho sequences were performed through the brain utilizing T1 and T2 weighting, as well as either axial susceptibility weighted or gradient echo sequences, and axial diffusion weighted images. Imaging was performed without contrast administration. COMPARISON: None. FINDINGS: Diagnostic Quality: Adequate. No midline shift, mass effect, parenchymal hemorrhage, or evidence of acute infarct. No extra-axial fluid collections. Basal cisterns are patent. No hydrocephalus. Vascular Flow Voids: Normal. Paranasal Sinuses and Mastoid Air Cells: Undulating nasal septum. Opacification of the middle ears.Near complete opacification of the left sphenoid sinus. Trace mucosal thickening of the right sphenoid sinus. Trace mucosal thickening of the maxillary sinuses. Mild mucosal thickening of the ethmoidair cells. Orbits: Bilateral lens implants. Otherwise orbits and globes are unremarkable in appearance. Extracranial Findings: None. Craniocervical Junction and Skull Base: No tonsillar ectopia or mass is present. - Impression - * There is no evidence of intracranial mass, hemorrhage, or acute infarction. * Moderate paranasal sinus disease with layering fluid in the left sphenoid sinus and bilateral mastoid effusions. An acute sinusitis could be considered in the appropriate clinical setting. CRITICAL RESULT: No. COMMUNICATION: Per this written report. Drafted by Martín Ocasio MD on 03/14/2025 2:30 AM Final report signed by Martín Ocasio MD on 03/14/2025 2:34 AM Relevant Results Non-Gynecologic Cytology, Fluid: [id number] Order: [id number] Collected 03/13/2025 11:34 Status: Final result Test Result Released: No (scheduled for 03/17/2025 5:45 PM) 0 Result Notes Component Final Diagnosis A. BRONCHIAL WASHING, RIGHT MIDDLE LOBE - NO EVIDENCE OF MALIGNANCY. NO VIRAL CHANGES IDENTIFIED, PREDOMINANTLY MACROPHAGES, GMS STAIN IS NEGATIVE FOR ORGANISMS. Assessment/Plan Principal Problem: Acute hypoxic on chronic hypercapnic respiratory failure Active Problems: Acute hypoxic respiratory failure 74-year-old male with past medical history of CAD, hypertension, hyperlipidemia, BPH, COPD, recently diagnosed small-cell cancer, care for acute hypoxic respiratory failure requiring mechanical ventilation, extubated on 03/15 . Active oncological problems Small-cell lung cancer with regional lymph node metastasis Stage IIIA per records - untreated and only on ivermectin, fenbendazole as well as apricot pits. ( also endorses taking these meds, as a preventive ). - I reviewed the OSH records, imaging, biopsy and the inpatient imaging. - His small cell cancer is staged as IIIA -He met with Dr Silva who suggested radiotherapy, he has undergone CT sim but has not received anyradiation treatments. -the disease course, type of lung cancer and its aggressiveness as well as possible life expectancywithout treatment were discussed with the and the patient. - wanted to know the side effects of the medications, and the chemotherapy plan which were shared with her. -she was informed that chemotherapy is very effective in this kind of cancer. - family seemed undecided regarding radiotherapy. May consider radiation oncology consult for help to assess the family's opinion on treatment. - Patient stated that Dr Silva was surprised that his diease was stable for 1 month with ivermectin. He was hopeful that it is working. After in depth discussion regarding the malignancy and its course with and without treatment, chemotherapy indication, possible expectation of the duration of treatment and possibility of potential cure, both and opted against chemotherapy at this time. Family was educated that withouttreatment this will most likely progress very soon and patient will have very limited life expectancy. Both and understood and agreed to talk to us if they change their mind, but currently are not in favor of chemotherapy or radiation therapy. Postobstructive pneumonia - completing antibiotics, per MICU team - continued oxygen requirements - continue supportive meds, nebs, pulmonary toilet Case seen and discussed with Dr Octavio FRANKLIN who assisted with formulation of management plan. Oncology will sign off, please don't hesitate to call/text in case of any questions or concerns. Fabi Richter MD Fellow, PGY4 [facility] [phone] [1] Current Facility-Administered Medications Medication Dose Route Frequency Provider Last Rate Last Admin amitriptyline (Elavil) tablet 25 mg 25 mg Oral Nightly Madison Fair MD aspirin chewable tablet 81 mg 81 mg Oral Daily Madison Fair MD 81 mg at 03/15/25 0807 atorvastatin (Lipitor) tablet 20 mg 20 mg Oral Nightly Madison Fair MD cefTRIAXone (Rocephin) 2 g in sodium chloride 0.9% 100 mL IVPB (vial adapter required) 2 g Intravenous q24h Gt De La Paz MD 220 mL/hr at 03/14/25 2227 2 g at 03/14/25 2227 glucose (Glutose) 40 % oral gel 15-30 grams of glucose 15-30 grams of glucose Sublingual q15 min PRN Lay Clark DO Or dextrose 50 % solution 12.5-25 g 12.5-25 g Intravenous q15 min PRN Lay Clark DO 25 g at 03/15/25 0451 Or glucagon (human recombinant) injection 1 mg 1 mg Intramuscular q15 min PRN Lay Clark DO gabapentin (Neurontin) capsule 300 mg 300 mg Oral BID Madison Fair MD 300 mg at 03/15/25 0807 heparin (porcine) injection 5,000 Units 5,000 Units Subcutaneous q8h ARNOLDO Liz Echevarria MD 5,000 Units at 03/15/25 1334 HYDROcodone-acetaminophen (Dolores) 5-325 MG per tablet 10 mg of hydrocodone 10 mg of hydrocodone Oral q6h PRN Liz Echevarria MD 10 mg of hydrocodone at 03/14/25 1809 insulin lispro (Admelog) 100 units/mL injection - Correction - Standard Dose 0-5 Units SubcutaneousTID with meals Madison Fair MD insulin lispro (Admelog) injection - Correction - Nighttime Dose 0-3 Units Subcutaneous Twice at night Madison Fair MD ipratropium-albuterol (Duo-Neb) 0.5-2.5 mg/3 mL nebulizer solution 3 mL 3 mL Nebulization q6h RT Lay Clark DO 3 mL at 03/15/25 1516 mupirocin (Bactroban) 2 % ointment 1 Application 1 Application Each Nostril BID Lay Clark DO1 Application at 03/15/25 0807 pantoprazole (Protonix) EC tablet 40 mg 40 mg Oral Daily Madison Fair MD 40 mg at 03/15/25 0813 polyethylene glycol (Miralax) packet 17 g 17 g Oral Daily Madison Fair MD Cosigned by Betzaida Cunningham MD at 03/15/2025 10:11 PM EDT Associated attestation - Betzaida Cunningham MD - 03/15/2025 10:11 PM EDT Attending Attestation Statement: Today, I saw and evaluated the patient with the resident/fellow. Idiscussed the case with the resident/fellow and agree with the findings and plan as documented. I have reviewed the above notes and edited where appropriate reflecting my evaluation and assessment ofthe patient; I concur with the physical exam above and add the following: Blood pressure (!) 169/74, pulse 87, temperature 36.8 ??C (98.2 ??F), temperature source Axillary, resp. rate 16, height 1.753 m (5' 9.02 ), weight 108 kg (238 lb 5.1 oz), SpO2 87% during my examination. PHYSICAL EXAMINATION: GENERAL: chronically ill appearing, alert, male in moderate respiratory distress EYES: PERRLA EOMI; No scleral icterus HEENT: OP clear, no evidence of oral lesions, mucosal ulceration. Face is emily and swollen NECK: Supple, without thyromegaly or adenopathy. Neck veins are mildly dilated NODES: no axillary nodes are noted RESPIRATORY: Bilateral rhonchi, without rubs or wheezes HEART: tachycardic without murmur, rub ABDOMEN: positive bowel sounds, non-tender, non-distended, No hepatomegaly, no splenomegaly, no other masses noted EXT: Bilateral LE edema, 2+ no cyanosis SKIN: No rash or subcutaneous nodules, no bruising NEURO: Alert, Oriented x 3, CN II-XII intact. affect appropriate, memory intact to short and long-term events The plans have been generated by me and under my supervision. I personally visualized the radiologyscans above and personally discussed the plans outlined above at length with the patient. I also educated both and that apricot pits contain cyanide which could cause if taken in high doses. Exceeding three per day can lead to cyanide poisoning due to the presence of amygdalin, which converts to cyanide in the body. I also educated them that ivermectin and mebendazoleare not approved for human use, and the combination could result in adverse reactions, such as lethargy, gastrointestinal disturbances, liver function abnormalities and neurological symptoms. Ivermectin and fenbendazole have not been shown to be effective in cancer treatment, and while they are arecommonly used effectively to eliminate parasite infection in livestock and dogs, we do not recommended their use in humans due to a lack of research with these agents in humans with cancer and risk of adverse events. Betzaida Cunningham MD * Progress Notes - Enzo Vincent - 03/15/2025 11:56 AM EDT Physical Therapy Evaluation Patient Name: Last Santos Today's Date: 03/15/2025 PT Discharge Recommendations: Home with assistance, Home health PT, Home health OT Equipment Recommended: Rolling walker History Last Santos is 74 y.o. male admitted 03/12/2025 for work-up of Acute hypoxic on chronic hypercapnic respiratory failure. Hospital Course 1. Acute hypoxic respiratory failure 2. Pneumonia of right lung due to infectious organism, unspecified part of lung 3. Acute hypoxic on chronic hypercapnic respiratory failure 4. Lung mass Procedures Past Medical History Patient has a past medical history of Diabetes ([facility]), High blood pressure, and Myocardial infarction ([facility]). Past Surgical History Patient has a past surgical history that includes Skin cancer excision (2020); Cardiac catheterization; and Coronary stent placement (2009). Precautions Medical Precautions: Fall precautions Subjective Pt agreeable to PT initial evaluation. Participants in Care Family/Caregiver Present: No Presentation Oxygen Therapy: Supplemental oxygen O2 Delivery Method: High flow nasal cannula (switched to NRB for mobility in [facility], per RN; pt returned to [facility] at end of session) FiO2 (%): 50 % O2 Flow Rate (L/min): 30 L/min Lines and Tubes: Telemetry, Intravenous access Pre-Session: Supine, Head of bed elevated, Lines intact, Side lying left Post-Session: Chair alarm, Lines intact, RN notified, Sitting in chair, SCDs applied, Call light inreach Home Living/Set-Up Lives With: Spouse Home Type: House Home Adaptive Equipment: None Home Layout: One level, Stairs to enter without rails Number of Stairs: 1 Bathroom: Tub/Shower: Walk-in shower Bathroom: Toilet: Standard Bathroom: Accessibility: Accessible Prior Level of Function Receives Help From: No assist required prior to admission Level of Mobility: Ambulatory- community Mobility Burke: Independent gait without device History of Falls: No ADL Performance: Independent Patient/Family Goals To go home. Objective Pain Pt reported no c/o pain. Delirium Screening Romero Agitation Sedation Scale (RASS): Alert and calm Confusion Assessment Method-ICU (CAM-ICU/PCAM-ICU) Feature 3: Altered Level of Consciousness: Negative Cognition Overall Cognitive Status: Within Functional Limits Arousal/Alertness: Appropriate responses to stimuli Mood/Behavior: Alert Single Step Commands: 100% of the time Multi-Step Commands: 100% of the time Method of Communication: Verbal Safety Judgment: Good awareness of safety precautions Awareness of Errors: Good awareness of errors made Deficit Awareness: Fully aware of deficits Attention Span: Appears intact Right Upper Extremity Examination RUE Assessment: Within Functional Limits Manual Muscle Testing - RUE: Within functional limits except Shoulder Flexion: 4+ Shoulder Extension: 4+ Elbow Extension: 5 Elbow Flexion: 5 Gross Grasp - Finger: 5 Light Touch: Right Upper Extremity: Intact Left Upper Extremity Examination LUE Assessment: Within Functional Limits Manual Muscle Testing - LUE: Within functional limits except Shoulder Flexion: 4+ Shoulder Extension: 4+ Elbow Extension: 5 Elbow Flexion: 5 Gross Grasp - Finger: 5 Light Touch: Left Upper Extremity: Intact Right Lower Extremity Examination RLE Assessment: Within Functional Limits Manual Muscle Testing - RLE: (5/5) Light Touch: Right Lower Extremity: Intact Left Lower Extremity Examination LLE Assessment: Within Functional Limits Manual Muscle Testing: (5/5) Light Touch: Left Lower Extremity: Intact Perception/Coordination Bed Mobility Bed Mobility Interventions: During rolling/turning, pt required cues for reaching contralaterally for bed rail. During supine>sit, pt required cues for technique and sequencing, including to roll to side and bring feet off the bed before pushing up to sitting. When scooting forward at EOB, pt required cues for body postioning. Bed Mobility Exam: Rolling/Turning Level of Burke: Stand-by assist Physical/Nonphysical Assist: Supervision, Verbal Cues Assistive Device: Bed rails Bed Mobility Exam: Scooting/Bridging Level of Burke: Contact guard (to scoot forward while seated at EOB) Physical/Nonphysical Assist: Verbal Cues, Minimal cues Bed Mobility Exam: Supine to Sit Level of Burke: Contact guard Physical/Nonphysical Assist: Verbal Cues, Minimal cues Assistive Device: Bed rails Transfers Transfer Interventions: Pt required cues for hand placement to push up to stand, midline awareness upon initial stand, body positioning prior to sitting, and reaching back prior to sitting. Transfer Exam: Sit to stand Level of Burke: Minimum assist (75% patient's effort) (min assist x1 rep from bed, CGA x1 rep from chair and x1 rep from BSC) Physical/Nonphysical Assist: Verbal Cues, Minimal cues, 1 person + 1 person to manage equipment Assistive Device: Walker, rolling Transfer Exam: Stand to Sit Level of Burke: Contact guard (x3 reps) Physical/Nonphysical Assist: Verbal Cues, Minimal cues, 1 person + 1 person to manage equipment Assistive Device: Walker, rolling Balance Balance Interventions: Pt worked on maintaining standing balance while completing single and bilateral UE upward and forward reaching tasks with single or no UE support with CGA and min cues for safety during weight shifting. Postural Appearance Posture: Within Functional Limits Static Sitting Balance Static Sitting-Balance Support: No upper extremity support, Feet supported Static Sitting-Level of Assistance: Standby assist Dynamic Sitting Balance Dynamic Sitting-Balance Support: No upper extremity support, Feet supported Dynamic Sitting-Balance: Lateral weight shifts, Anterior/Posterior weight shifts Level of Assistance: Contact guard Static Standing Balance Static Standing-Balance Support: Left upper extremity support Static Standing-Level of Assistance: Standby assist Dynamic Standing Balance Dynamic Standing-Balance Support: Left upper extremity support Dynamic Standing-Balance: Lateral weight shifts, Anterior/Posterior weight shifts, Reaching for objects Dynamic Standing Level of Assistance: Contact guard Therapeutic Activity (23 minutes) Refer to bed mobility, balance, and transfer sections. Gait Training (15 minutes) Apparatus: Chair follow Assistance: Minimum assistance, Minimal verbal cues, Moderate tactile cues, Additional assist for line management Distance: 2x10 feet using RW with CGA, 1x400 feet (200 feet using RW with CGA, then 200 feet using hand-held assist with min assist) Gait Analysis: Pt displayed decreased elda, decreased stride length, decreased gait speed, and wide JESSICA while ambulating with and without RW. Pt displayed increased JESSICA when ambulating without assistive device. Gait Training Interventions: Pt required cues for walker management especially when turning, maintaining closer proximity to walker, and pacing. Pt remains most appropriate to ambulate with RW for increased safety and independence. Standardized Assessments Standardized Assessments Standardized Assessments: [facility] 6-Clicks Mobility Assessment [facility] 6-Clicks Mobility Assessment Difficulty patient has turning over in bed (including adjusting bedclothes, sheets, and blankets)?:None Difficulty patient has sitting down on and standing up from a chair with arms (wheelchair, bedside commode, etc.)?: A little Difficulty patient has moving from lying on back to sitting on the side of the bed?: A little How much help does the patient need moving to and from a bed to a chair (including a wheelchair)?: A little How much help does the patient need to walk in hospital room?: A little How much help does the patient need climbing 3-5 steps with a railing?: A lot [facility] 6-Clicks Mobility Assessment Total : 18 Assessment Pt participated well during PT initial evaluation. Pt demonstrated improved balance and safety whenambulating with RW, as pt required constant assistance with mild periods of instability when ambulating without assistive device requiring hand-held assistance. Pt demonstrated good safety awareness overall with no LOB episodes. As a result, pt would be appropriate to return home with assistance with RW upon hospital discharge. Pt tolerated therapy well with VSS throughout session, including ambulation in the room while on HFNC and in the hallway while on NRB. Pt would benefit from skilled PT services to improve strength, balance, activity tolerance, and independence with mobility. Impairments: Decreased endurance, ventilation, and/or gas exchange, Impaired balance, Impaired functional mobility/transfers, Impaired gait dynamics/performance, Impaired postural/trunk control, Decreased strength Activity Limitations: Inability to sit independently, Inability to ambulate independently, Inability to transfer independently, Inability to ambulate community distances, Inability to complete ADLs independently Participation Restrictions: Self-care, Home management, Community leisure Diagnosis: AHRF, Lung malignancy, concerns for Right sided post-obstructive PNA in setting of pulmonary mass, Sepsis, Focal seizure like activity Rehab Potential: Good, to achieve stated therapy goals Eval Complexity History Profile: 3 or more personal factors and/or comorbidities Clinical Presentation: Evolving clinical presentation with changing characteristics Clinical Decision Making: Moderate complexity PT Recommendations Discharge Destination: Home with assistance, Home health PT, Home health OT Discharge Equipment: Rolling walker Plan Planned PT Interventions Balance training, Bed mobility training, Gait training, Transfer training, Postural re-education, Neuromuscular re-education, Strengthening, Functional Mobility, Caregiver training PT Frequency 2 - 5 times per week PT Duration 2 weeks Goals PT GOAL DETAILS Time Frame PT Goal 1: Pt will complete supine<>sit independently in order to get in/out of bed. 2 weeks PT Goal 2: Pt will complete sit<>stand and bed<>chair using least restrictive device modified independence in order to increase safety with transfers. 2 weeks PT Goal 3: Pt will ambulate 650 feet with SBA order to increase independence with mobility and decrease risk of falls. 2 weeks PT Goal 4: Pt will ascend/descend 1 step using least restrictive device with CGA in order to enter and exit home. 2 weeks PT Goal 5: Pt/family will be independent with HEP and discharge recommendations. 2 weeks Written by Enzo Vincent on 03/15/25 at 2:10 PM. * Progress Notes - Kati Lomas - 03/15/2025 11:55 AM EDT OCCUPATIONAL THERAPY ASSESSMENT PATIENT DATA Patient Name Last Santos Session Date 03/15/2025 OT Discharge Recommendations Home with assistance Equipment Recommendations Shower chair HISTORY Last Santos is 74 y.o. male admitted 03/12/2025 for work-up of Acute hypoxic on chronic hypercapnic respiratory failure. Hospital Course 1. Acute hypoxic respiratory failure 2. Pneumonia of right lung due to infectious organism, unspecified part of lung 3. Acute hypoxic on chronic hypercapnic respiratory failure 4. Lung mass Procedures (if applicable) Past Medical History Patient has a past medical history of Diabetes ([facility]), High blood pressure,and Myocardial infarction ([facility]). Past Surgical History Patient has a past surgical history that includes Skin cancer excision (2020); Cardiac catheterization; and Coronary stent placement (2009). 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 Post-Session Chair alarm, Lines intact, RN notified, Sitting in chair, SCDs applied, Call light in reach Patient positioned for comfort and pressure relief with all needs met. Bracing (if applicable) HOME LIVING/SET-UP Lives With Spouse Home Type House Home Equipment None Home Layout One level, Stairs to enter without rails Number of Stairs: 1 Bathroom Layout Walk-in shower Bathroom: Toilet: Standard Accessible Additional Comments PRIOR LEVEL OF FUNCTION Receives help from No assist required prior to admission Level of Mobility Ambulatory- community Mobility Burke Independent gait without device History of Falls No ADL Performance ADL Performance: Independent PATIENT/FAMILY GOALS Pt eager to return home OBJECTIVE PAIN Pt endorses no pain this date, patient positioned for comfort upon departure. DELIRIUM SCREENING Romero Agitation Sedation Scale (RASS): Alert and calm Confusion Assessment Method-ICU (CAM-ICU/PCAM-ICU) Feature 3: Altered Level of Consciousness: Negative COGNITION Overall Cognitive Status Within Functional Limits Arousal/Alertness Appropriate responses to stimuli Mood/Behavior Alert Orientation Oriented X4 Command Following Single Step Commands: 100% of the time Multi-Step Commands: 100% of the time Method of Communication Verbal Additional Observations Safety Judgment: Good awareness of safety precautions Awareness of Errors: Good awareness of errors made Deficit Awareness: Fully aware of deficits Attention Span: Appears intact Cognitive Skill Development VISION Baseline Vision Glasses reading Current Vision (if different) Patient Visual Report: pt reports no change in vision RIGHT UPPER EXTREMITY EXAMINATION Range of Motion Within Functional Limits Manual Muscle Testing Within functional limits except Shoulder Flexion: 4+ Elbow Extension: 5 Elbow Flexion: 5 Gross Grasp - Finger: 5 Light Touch Sensation Intact LEFT UPPER EXTREMITY EXAMINATION Range of Motion Within Functional Limits Manual Muscle Testing Within functional limits except Shoulder Flexion: 4+ Elbow Extension: 5 Elbow Flexion: 5 Gross Grasp - Finger: 5 Light Touch Sensation Intact RIGHT LOWER EXTREMITY EXAMINATION Range of Motion Within Functional Limits Manual Muscle Testing (5/5) Light Touch Sensation Intact LEFT LOWER EXTREMITY EXAMINATION Range of Motion Within Functional Limits Manual Muscle Testing (5/5) Light Touch Sensation Intact INTERVENTIONS SELF-CARE Treatment Minutes (if applicable) 38 Comments To promote prior independence, tolerance, safety to routine, pt engages in sequential selfcare and mobility tasks via therapist facilitation. Pt requires: Additional time for environmental set up, line management, allowing pt complete tasks independentlyprior to receiving assistance, to promote safe access to treatment area, reduce accidental dislodgment of lines, adverse reaction Pacing and grading of activity via task analysis to promote just right challenge, reduce risk for adverse reaction Vital sign monitoring to ensure hemodynamic stability with BP maintaining >92% with activity, HR, RR WFL with activity and at rest. Pt cued on self-monitoring to avoid over-exertion or risk for falls/injury Transition to recliner to promote tolerance to upright position, reduce risk for pneumonia, pressure sores, delirium Use of off loading pillows to promote skin integrity Education on role/rationale of services to promote carry over of plan of care, discuss discharge planning. Pt reports he wants to discharge home and agreeable to home health. Level of Burke Adaptive Equipment Utilized Interventions Feeding Grooming Setup Standing sinkside Pt completes oral and facial hygiene standing at sink, requires stabilizer on forearms due to fatigue, no seated break for task completion. Bathing Upper Body Dressing Dependent Edge of bed Pt requires DEP A, cannot complete forward flexion to access BLE or attain figure 4 position due to limited flexibility. Lower Body Dressing Toileting SBA Bedside commode Due to HFNC tubing not reaching to toilet, pt sits on BSC in bathroomto void urine Toilet Transfer IADLs Health Management Community Re-Entry To simulate community access, pt mobilizes around unit initially using RW CGA, then progresses to unilateral handheld assistance for second half of mobility. No outward loss of balance noted, but pt reports feeling wobbly/weak, cued on self-monitoring with modified RPE scale via use of 'tank of gas' analogy. Pt with no seated breaks required, dual tasks while mobilizing and walks at slow pace, requires additional assistance for managing IV pole. Pt encouraged for pursed lip breathing as needed, encouraged to mobilize in hallway with staffing program manager to promote tolerance to return to prior level of functioning. BED MOBILITY Level of Burke Physical/Non- physical Assist Adaptive Equipment Utilized Rolling/ Turning Stand-by assist Supervision, Verbal Cues Bed rails Scooting/ Bridging Contact guard (to scoot forward while seated at EOB) Verbal Cues, Minimal cues Supine to Sit Contact guard Verbal Cues, Minimal cues Bed rails Sit to Supine TRANSFERS Level of Burke Physical/Non- physical Assist Adaptive Equipment Utilized Sit to Stand Minimum assist (75% patient's effort) (min assist x1 rep from bed, CGA x1 rep from chair and x1 rep from BSC) Verbal Cues, Minimal cues, 1 person + 1 person to manage equipment Walker, rolling Stand to sit Contact guard (x3 reps) Verbal Cues, Minimal cues, 1 person + 1 person to manage equipment Walker, rolling Bed to Chair Shower Transfer STANDARDIZED ASSESSMENTS [facility] 6-Click Daily Activities Help from Other: Don/Doff Regular Lower Body Clothings: A lot Help From Other: Bathing: A lot Help From Other: Toileting: Little Help From Other: Don/Doff Upper Body Clothings: None Help From Other: Grooming: None Help From Other: Eating Meals: None [facility] 6 Click - Daily Activities Score: 19 ASSESSMENT OT FINDINGS Pt tolerates session with no adverse reactions, stable vital signs. Upon skilled occupational therapy assessment and evaluation of strength, coordination, cognition, performance in self care and functional mobility tasks, pt requires skilled services. Prior to admission, pt is independent with self care tasks and functional mobility without AD. Pt accesses community independently. Currently, pt is most limited by fall risk, limited activity tolerance, cannot manage emergency egress independently/safely, requires assistance for all aspects of mobility and self care, reliance onHFNC, Impaired ADL performance, Impaired IADL performance, Impaired balance, Impaired circulation, Impaired functional mobility Evaluation/ Treatment Tolerance (if identified) Patient limited by fatigue Rehab Potential (if identified) Good, to achieve stated therapy goals Barriers to Discharge (if identified) Comorbidities EVAL COMPLEXITY Occupational Profile Expanded review of medical/therapy records and additional review of physical, cognitive, or psychosocial history Performance Deficits Activities of daily living (ADLs), Instrumental activities of daily living (IADLs), Leisure, Social interaction skills, Physical, Personal, Routines, Habits, Social participation, Values/Beliefs/Spirituality Clinical Decision Making Moderate Overall Eval Complexity Moderate OT RECOMMENDATIONS Discharge Destination Home with assistance Discharge Equipment Shower chair Recommendations for Referral to Another Service (if applicable) Demonstrates Need for Referral to Another Service: Social work PLAN Planned OT Interventions ADL retraining, IADL retraining, Caregiver education, Functional mobility, Strengthening, Bed mobility Training, Balance training OT Frequency 2 - 5 times per week OT Duration 2 weeks OT Goals OT GOAL DETAILS Time Frame OT Goal 1: Pt will complete LB dressing with AE/AD as needed independently 2 weeks OT Goal 2: Pt will complete toileting routine with LRAD supervision 2 weeks OT Goal 3: Pt will complete functional reach outside of base of support in standing x10 without loss of balance, LRAD as needed 2 weeks OT Goal 4: Pt will maneuver household simulation with obstacles and crowded spaces with LRAD independently without loss of balance or seated break 2 weeks OT Goal 5: Pt will complete BUE HEP independently 2 weeks Written by Kati Lomas on 03/15/25 at 1:58 PM. * Progress Notes - Nasra Adkins - 03/15/2025 9:33 AM EDT Case Management Adult Initial Progress Note Last Santos 74 y.o. male CSN: [id number] Admission: 03/12/2025 8:41 PM Primary Problem: Acute hypoxic on chronic hypercapnic respiratory failure Facility Maintenance Supervisor reviewed chart and spoke with patient's spouse at bedside to complete this Initial Case Management Assessment. PCP: Levar Davison MD ([phone]) [facility] Emergency Contact: Extended Emergency Contact Information Primary Emergency Contact: CRYSTAL SANTOS Mobile Relation: Spouse Greens Cutter needed? No Insurance: Primary Visit Coverage Payer Plan Sponsor Code Group Number Group Name [employer] [id number] Primary Visit Coverage Subscriber Subscriber ID Subscriber Name Subscriber SSN Subscriber Address [id number] LAST SANTOS [id number] [address] [place] [address] Patient information: Primary Caregiver: Self Accompanied by/Relationship: spouse - Crystal Support System: Immediate family Daily Living Activities: Functional Status: Independent Living Arrangements: Spouse/Significant other Type of Residence: Private residence, Single Level [address] [place] [address] Current DME: Equipment Currently Used at Home: cane, straight Income Information: Income Source: Retired Income/Expense Information: Income meets expenses Current Resources Utilized: None Housing Circumstances-Z Codes: Housing Circumstances (select all that apply): None Applicable Anticipated Discharge Date: TBD Patient's Discharge Goal: Return home with family Assistance Available at Discharge: spouse/family Discharge Transport: spouse Follow Up Transport: spouse/self Home Health / Home Infusion / Outpatient Dialysis Services: NA Living Will/Advance Directive/Power of Switchboard Operator /Guardian: NA - MARYCRUZ-Crystal Santos Additional Comments: Patient admitted from [facility]) with acute hypoxic respiratory failure, pulmonary mass and possible PNA - recently dx with lung CA (11/2024 - Liz Bryan following- no current chemo/ radiation at this time) currently in critical care setting, on HF O2 at 30 liters (s/p extubation on 03/14/2025) - nebs, NPO, Abx= Ceftriaxone - gtts=none, PT/OT eval(s)pending. DCP: TBD pending medical POC, therapy recommendations. Prior to admission resided with spouse, Crystla, no home health, no oxygen/cpap, independent with self care. CM will continue to follow. Nasra Adkins, [facility],VENTILATING ENGINEER * Progress Notes - Nasra Adkins - 03/15/2025 9:31 AM EDT Case Management Adult Progress Note Last Santos 74 y.o. male CSN: [id number] Admission: 03/12/2025 8:41 PM Primary Problem: Acute hypoxic on chronic hypercapnic respiratory failure Social Drivers of Health Food Insecurity: No Food Insecurity (03/15/2025) Hunger Vital Sign Worried About Running Out of Food in the Last Year: Never true Ran Out of Food in the Last Year: Never true Alcohol Use: Not on file Housing Stability: Low Risk (03/15/2025) Housing Stability Vital Sign Unable to Pay for Housing in the Last Year: No Number of Times Moved in the Last Year: 1 Homeless in the Last Year: No Tobacco Use: High Risk (04/27/2024) Patient History Smoking Tobacco Use: Every Day Smokeless Tobacco Use: Never Passive Exposure: Not on file Transportation Needs: No Transportation Needs (03/15/2025) PRAPARE - Transportation Lack of Transportation (Medical): No Lack of Transportation (Non-Medical): No Depression: Not at risk (04/07/2024) PHQ-2 PHQ-2 Score: 0 Utilities: Not At Risk (03/15/2025) Utilities Threatened with loss of utilities: No Stress: Not on file Intimate Partner Violence: Patient Unable To Answer (03/15/2025) Humiliation, Afraid, Rape, and Kick questionnaire Fear of Current or Ex-Partner: Patient unable to answer Emotionally Abused: Patient unable to answer Physically Abused: Patient unable to answer Sexually Abused: Patient unable to answer Physical Activity: Not on file Social Connections: Unknown (03/15/2025) Social Connection and Isolation Panel [NHANES] Frequency of Communication with Friends and Family: Not on file Frequency of Social Gatherings with Friends and Family: Not on file Attends Baptism Services: Not on file Active Member of Clubs or Organizations: Not on file Attends Club or Organization Meetings: Not on file Marital Status: Financial Resource Strain: Medium Risk (03/15/2025) Overall Financial Resource Strain (CARDIA) Difficulty of Paying Living Expenses: Somewhat hard Nasra Adkins [facility] [place]VENTILATING ENGINEER * Care Plan - Shellie Casarez RN - 03/15/2025 9:15 AM EDT Problem: Infection Goal: Absence of Infection Signs and Symptoms 03/15/2025 0915 by Shellie Casarez RN Outcome: Ongoing, Progressing 03/15/2025 0914 by Shellie Casarez RN Outcome: Ongoing, Progressing Problem: Fall Injury Risk Goal: Absence of Fall and Fall-Related Injury Outcome: Ongoing, Progressing Problem: Oral Intake Inadequate Goal: Improved Oral Intake 03/15/2025 0915 by Shellie Casarez RN Outcome: Ongoing, Progressing 03/15/2025 0914 by Shellie Casarez RN Outcome: Ongoing, Progressing * Consults - Cecy Laguerre RD - 03/15/2025 7:39 AM EDT Adult Nutrition Evaluation Note Last Santos 74 y.o. male CSN: [id number] Room/Bed 211/211A Nutrition evaluation type: follow-up Reason for evaluation: Hospital course: 74 y/o M with a history of hypertension, hyperlipidemia, lung cancer, not currently on treatment aside from home treatment of ivermectin. Also COPD not on any oxygen at home. Presents as transfer from an outside hospital due to concerns for acute hypoxic respiratory failure. Intubated. 03/15: Acute respiratory failure and sepsis secondary to lung malignancy, concern for post obstructive pneumonia, in setting of pulmonary mass. Seizures. Extubated on 03/14, now on bipap. NPO x 3 days Past medical/ surgical history: Medical History[1] CKD, BPH, lung cancer, COPD, HLD Surgical History[2] Social history: Additional comments: 03/15: pt working with PT at time of visit, visual exam only Vitals and Basic Assessment: BP: (!) 142/69 Temp: 37.2 ??C (99 ??F) Invasive Ventilator Initiated (ETT/Trach Only): Yes Oxygen Therapy: Supplemental oxygen O2 Delivery Method: High flow nasal cannula Jean-Paul Coma Scale Score: 15 Rod Scale Score: 20 Chandan/Cubbin Pressure Risk Score: 32 Most Recent BM Date: 03/15/25 Edema: Generalized, Right upper extremity, Left upper extremity, Right lower extremity, Left lower extremity Allergies: NKFA Medications: amitriptyline, 25 mg, Oral, Nightly aspirin, 81 mg, Oral, Daily atorvastatin, 20 mg, Oral, Nightly cefTRIAXone, 2 g, Intravenous, q24h gabapentin, 300 mg, Oral, BID heparin (porcine), 5,000 Units, Subcutaneous, q8h ARNOLDO insulin regular, 0-5 Units, Subcutaneous, q6h ARNOLDO ipratropium-albuterol, 3 mL, Nebulization, q6h RT mupirocin, 1 Application, Each Nostril, BID pantoprazole, 40 mg, Oral, Daily polyethylene glycol, 17 g, Oral, Daily Labs: Labs in last 18 hours CBC WBC 8.63 Hb 12.8 (L) Plt 207 Hct 40.0 ANC ?? INR ??, PTT ??, Anti-Xa ?? BMP Na 141 Cl 102 BUN 35 (H) Glu 89 K 4.6 Co2 28 Cr 1.75 (H) Ca 9.1 iCa 4.6 Mg ??, Phos ?? Lactate ?? LFT AST ?? AlkPhos ?? T Prot ?? ALK ?? Bili ?? Alb ?? D.Bili ?? A1c 5.4 Anthropometrics: Height: 175.3 cm (5' 9.02 ) Weight: 108 kg (238 lb 5.1 oz) BMI (Calculated): 35.18 Weight Evaluation: Obese-Class 2 (BMI 35-39.9) [place] Body Weight (kg): 72.7 Percent [place] Body Weight: 150 Adjusted Body Weight (kg): 81.5 Estimated Needs: Kcal/ K-25 Kcal Provided: 7928-6384 Kcal Needs Based On: Adjusted weight Gm Protein/ Kg : 1.2-1.5 Protein Provided: 98-123 Protein Needs Based On: Adjusted weight ML/ Kg: - Metabolic Cart Study Results: Current Nutrition Intake: Diet Supplements: None Diet Order: NPO Diet Experience and Nutrition History: Diet Education Provided: Will monitor Pertinent home medications: Baptism needs: Nutrition Focused Physical Exam: Physical exam performed on (date): 03/15 Temples (muscles): (P) None Clavicle (muscle): (P) None Shoulder (muscle): (P) None Thigh (muscle): (P) None Calf (muscle): (P) None Orbital (fat): (P) None Assessment of Malnutrition: Malnutrition Identified: (P) No Nutrition Problem: Inadequate oral intake related to respiratory status as evidenced by NPO. Status of Nutrition Diagnosis: Ongoing Nutrition Interventions and Recommendations: NPO x 3 days: --If unable to advance PO diet, place DHT for TF TF recs: --Isosource 1.5 at 55 ml/hr with 2 packets Beneprotein per day --Provides: 1865 kcal, 94 gm protein, and 924 ml water --Can start TF at 25 ml/hr, advance by 15 ml/hr q 8 hr to goal --Monitor renal function for possible need for alternate formula Nutrition Monitoring and Goals: Nutrition started within 24 hr Acuity Level: [address] [1] Past Medical History: Diagnosis Date Diabetes (CMS/HCC) High blood pressure Myocardial infarction (CMS/HCC) [2] Past Surgical History: Procedure Laterality Date CARDIAC CATHETERIZATION CORONARY STENT PLACEMENT 2009 s/p 1 cardiac stent placed. SKIN CANCER EXCISION 2020 * Progress Notes - Madison Fair MD - 03/15/2025 7:09 AM EDT MICU PROGRESS NOTE Subjective Mr. Santos was extubated yesterday. MRI head was normal. Sinusitis may be present. No evidence of malignancy on cytology. Patient today would like to continue ivermectin and apricot pits because he has friends who were cured and his is in agreement. He is interested in a discussion with oncology. On HFNC - 30l/min, 40%. Alert and oriented. Review of Systems No SOA, no constipation, no diarrhea. Objective Physical Exam GEN: NAD, on HFNC, facial plethora HEENT: no nystagmus, non-icteric. No discharge. Mucus membranes moist, pink PULM: MV in place, chest expansion equal bilaterally, no wheezes, rales, ronchi Cards; regular rate, no murmurs, rubs, gallops GI: soft, slightly distended. Bowel sounds wnl MSK: no clubbing, cyanosis, edema Neuro:no focal deficits Psych: mentation appropriate Last Recorded Vitals Blood pressure 131/67, pulse 82, temperature (!) 38.1 ??C (100.6 ??F), temperature source Axillary,resp. rate 14, height 1.753 m (5' 9 ), weight 108 kg (238 lb 5.1 oz), SpO2 92%. Assessment/Plan Principal Problem: Acute hypoxic on chronic hypercapnic respiratory failure Patient is a 74 yo M with PMH CAD (s/p inferior ID), COPD(no home O2), BPH, HTN, HLD, DM2, recent diagnosis of lung cancer (diagnosed Feburary, RUL hypermetabolic nodule, R peritracheal and hilar adenopathy) who presented to OSH for acute hypoxic respiratory failure requiring intubation. #Acute hypoxic respiratory failure requiring intubation and MV, resolving #Active lung malignancy of unknown etiology -Unspecified biopsy proven lung cancer, need OSH results. -Was reportedly supposed to undergo chemotherapy and radiation treatment with local oncologist in [place] (Liz Bryan) but declined treatment- takes Ivermectin at home- has friends who are cured. -Extubated 03/15 - down to HFNC 30L/35%. Still not interested in cancer tx but would talk to oncology. -BAL negative for malignancy and no organisms. No brain mets on MRI head. PLAN: - Wean HFNC as tolerated, goal SpO2 88% given hx of COPD - Consider oncology consult for discussion of treatment options after obtaining OSH records #CKD stage IIIb/IV #Hyperkalemia, resolved - Scr 2.08 on arrival, reported baseline has been 1.7-2 over past year or so. At baseline. HyperK resolved. -- UA notable for leukocytes, blood, protein, no bacteria PLAN: - Monitor intake and output - Avoid nephrotoxic agents, trend BMP #Hx of COPD, unclear stage #Hx of severe tobacco use - Known COPD not on home oxygen, no previous PFT's in chart - reports 50+ year hx of smoking 2 ppd - Continue prn duonebs, budesonide #Sepsis with concern for pulmonary source, resolved - Met SIRS criteria on arrival with tachycardia and tachypnea, possible pulmonary source given chest imaging findings - S/p 1 dose of vancomycin and Zosyn at OSH -BAL with no growth, Strep pneumo and legionella antigens negative, MRSA nares negative, Viral respiratory panel negative -Completed azithromycin. PLAN: - Will continue CAP coverage for now with Rocephin. Will complete CAP course- Last dose ceftriaxone03/16. #Focal seizure like activity -patient loaded with Keppra PLAN -Discontinued Keppra, no further concerns for seizures Chronic Medical Problems #HTN: hold home anti-hypertensives for now #HLD: can restart atorvastatin once indicated. #BPH: will hold home tamsulosin for now, restart when appropriate #T2DM: SSI, neuropathy #GERD: PPI #Chronic pain: hold home opioids while on sedation F: Regular A: home hydrocodone S: T: Heparin prophy- subq H: - U: home protonix G: SSI S: - B: Miralax I: PIV, Grant, ETT, OG D: Rocephin until 03.16 Code Status: Full Madison Fair MD Internal Medicine PGY-1 Anticipated in 2-4 Days Procedures Cosigned by Delfino Aceves MD at 03/17/2025 4:19 PM EDT Associated attestation - Delfino Aceves MD - 03/17/2025 4:19 PM EDT I saw and evaluated the patient with the resident/fellow. I discussed the case with the resident/fellow and agree with the findings and plan as documented. * Care Plan - Heraclio Gomez RN - 03/14/2025 10:12 PM EDT Problem: Infection Goal: Absence of Infection Signs and Symptoms Outcome: Ongoing, Progressing Problem: Mechanical Ventilation Invasive Goal: Effective Communication Outcome: Ongoing, Progressing Goal: Mechanical Ventilation Liberation Outcome: Ongoing, Progressing Goal: Optimal Nutrition Delivery Outcome: Ongoing, Progressing Goal: Absence of Device-Related Skin and Tissue Injury Outcome: Ongoing, Progressing Goal: Absence of Ventilator-Induced Lung Injury Outcome: Ongoing, Progressing Problem: Fall Injury Risk Goal: Absence of Fall and Fall-Related Injury Outcome: Ongoing, Progressing Problem: Restraint, Nonviolent Goal: Absence of Harm or Injury Outcome: Ongoing, Progressing * Query Clarification Note - Delfino Aceves MD - 03/14/2025 2:49 PM EDT Please clarify the documentation of sepsis: [x]Sepsis remains a known condition for this condition []Sepsis has been ruled []Other (please specify): This documentation will become part of the patient's medical record. * Care Plan - Yovana Casarez - 03/14/2025 12:27 PM EDT Problem: Mechanical Ventilation Invasive Goal: Optimal Device Function 03/14/2025 1227 by Yovana Casarez Outcome: Met 03/14/2025 0801 by Yovana Casarez Outcome: Ongoing, Progressing * Care Plan - Yovana Casarez - 03/14/2025 8:01 AM EDT Problem: Mechanical Ventilation Invasive Goal: Optimal Device Function Outcome: Ongoing, Progressing * Progress Notes - Delfino Aceves MD - 03/14/2025 7:18 AM EDTAssociated Order(s): Critical Care Post-Procedure Diagnose(s): Lung mass; Pneumonia of right lung due to infectious organism, unspecified part of lung; Acute hypoxic respiratory failure MICU PROGRESS NOTE Subjective No acute events reported overnight. This AM patient awake and alert. Able to follow commands of lifting head off the bed, giving thumbs up when instructed. Able to nod yes or no to questions when asked. Patient able to indicate he is very interested in extubation today. Family at bedside remain optimistic that this may be the case. Propofol will be turned off this AM with plans to attempt extubation should patient be more awake/alert. Patient amenable to discussion with oncology about options available to him once extubated. Review of Systems Unable to assess at this time secondary to intubated/sedate status Objective Physical Exam GEN: intubated, NAD HEENT: no nystagmus, non-icteric. No discharge. Mucus membranes moist, pink PULM: MV in place, chest expansion equal bilaterally, no wheezes, rales, ronchi Cards; regular rate, no murmurs, rubs, gallops GI: soft, slightly distended. Bowel sounds wnl MSK: no clubbing, cyanosis, edema Neuro: unable to fully assess at this time Psych: unable to fully assess at this time. Last Recorded Vitals Blood pressure 109/52, pulse 85, temperature 36.5 ??C (97.7 ??F), resp. rate 9, height 1.753 m (5' 9 ), weight 109 kg (240 lb 4.8 oz), SpO2 92%. Assessment/Plan Principal Problem: Acute hypoxic on chronic hypercapnic respiratory failure Patient is a 74 yo M with PMH CAD (s/p inferior ID), COPD(no home O2), BPH, HTN, HLD, DM2, recent diagnosis of lung cancer (diagnosed Feary, RUL hypermetabolic nodule, R peritracheal and hilar adenopathy) who presented to OSH for acute hypoxic respiratory failure requiring intubation for post obstructive pna. #Acute hypoxic respiratory failure requiring intubation and MV #Active lung malignancy of unknown etiology #Concern for R sided post-obstructive PNA in setting of pulmonary mass - Initially presented to OSH with complaints of progressive cough, sputum production, and BLACKWELL - Had also been more somnolent at home, likely related to worsening hypoxia - Recent diagnosis of lung malignancy per , underwent PET scan in 11/2024 which revealed hypermetabolic RUL nodule highly concerning for neoplasm along with R peritracheal and hilar adenopathy concerning for regional metastatic adenopathy. Had reported biopsy but unable to find results in chart and is unsure what specific type of lung cancer he was diagnosed with - Was reportedly supposed to undergo chemotherapy and radiation treatment with local oncologist in [place] (Liz Bryan), however patient wished to wait on treatment and had been taking Ivermectinat home - Hypoxic on arrival to OSH w/ O2 sats in 60's, placed on non-rebreather without significant improvement so was subsequently intubated - CT chest revealed patchy bilateral infiltrates and possible RLL consolidation concerning for post-obstructive PNA given R sided lung mass - CTH without large masses or lesions PLAN: - Wean MV settings as tolerated, goal SpO2 88% given hx of COPD - Bronch done at bedside yesterday -fluid studies obtained - Consider oncology consult for discussion of treatment options, - will wait till patient is awake - discussed with family at bedside that Ivermectin and apricot pits are not cancer treatment - will need to get records from primary oncologist in [place] Friday - MRI brain w/ and w/o ordered to assess for brain metastasis #Sepsis with concern for pulmonary source - Met SIRS criteria on arrival with tachycardia and tachypnea, possible pulmonary source given chest imaging findings - LA wnl, not currently hypotensive - S/p 1 dose of vancomycin and Zosyn at OSH PLAN: - Will continue CAP coverage for now with Rocephin, Azith. Will complete CAP course - Procal .11, CRP - Strep pneumo and legionella antigens negative - MRSA nares negative - Viral respiratory panel negative #Focal seizure like activity -patient loaded with Keppra PLAN -will continue Keppra at this time -EEG completed -pending results may discontinue Keppra #CKD stage IIIb/IV #Hyperkalemia - Scr 2.08 on arrival, reported baseline has been 1.7-2 over past year or so - K at OSH 5.1, 6.1 on arrival here - Was intubated at OSH with succinylcholine, hyperkalemia could be related to this vs progressive worsening of renal function PLAN: - UA notable for leukocytes, blood, protein, no bacteria - Potassium temporized overnight, wnl. Will continue to monitor - Monitor intake and output - Avoid nephrotoxic agents, will need contrast with upcoming MRI but can get IVF if needed #Hx of COPD, unclear stage #Hx of severe tobacco use - Known COPD not on home oxygen, no previous PFT's in chart - reports 50+ year hx of smoking 2 ppd Chronic Medical Problems #HTN: hold home anti-hypertensives for now #HLD: can restart atorvastatin in AM #BPH: will hold home tamsulosin for now, restart when appropriate #T2DM: SSI #GERD: PPI #Chronic pain: hold home opioids while on sedation F: NPO for now A: dilaudid S: propofol T: heparin H: > 30 degrees U: PPI G: SSI S: SAT/SBT as appropriate B: Miralax I: PIV, Grant, ETT, OG D: Rocephin, Azith- will complete 3 day course for CAP Code Status: Full Anticipated in 2-4 Days Critical Care Performed by: Delfino Aceves MD Authorized by: Delfino Aceves MD Critical care provider statement: Critical care time (minutes): 35 Critical care time was exclusive of: Separately billable procedures and treating other patients Critical care was time spent personally by me on the following activities: Development of treatmentplan with patient or surrogate, evaluation of patient's response to treatment, examination of patient, ordering and performing treatments and interventions, ordering and review of laboratory studies,ordering and review of radiographic studies and ventilator management I assumed subsequent critical care for this patient from a provider in my division, on the same day: no Critical care statement: I saw and evaluated the patient with the resident/ fellow. I discussed thecase with the resident/ fellow and agree with the findings and plan as documented. * Care Plan - Osmany Borges - 03/14/2025 1:54 AM EDT Problem: Mechanical Ventilation Invasive Goal: Optimal Device Function Outcome: Ongoing, Progressing * Teleconsult - Mariah Mcgowan MD - 03/14/2025 1:07 AM EDT 03/14/25 Last Santos Asked by RN to review and reorder restraints. Chart reviewed and patient visualized. Patient has continued need for restraints. Order renewed. Mariah Mcgowan MD * Care Plan - Heraclio Gomez RN - 03/13/2025 10:42 PM EDT Problem: Infection Goal: Absence of Infection Signs and Symptoms Outcome: Ongoing, Progressing Problem: Mechanical Ventilation Invasive Goal: Effective Communication Outcome: Ongoing, Progressing Goal: Optimal Device Function Outcome: Ongoing, Progressing Goal: Mechanical Ventilation Liberation Outcome: Ongoing, Progressing Goal: Optimal Nutrition Delivery Outcome: Ongoing, Progressing Goal: Absence of Device-Related Skin and Tissue Injury Outcome: Ongoing, Progressing Goal: Absence of Ventilator-Induced Lung Injury Outcome: Ongoing, Progressing Problem: Fall Injury Risk Goal: Absence of Fall and Fall-Related Injury Outcome: Ongoing, Progressing Problem: Restraint, Nonviolent Goal: Absence of Harm or Injury Outcome: Ongoing, Progressing * Procedures - Gt De La Paz MD - 03/13/2025 10:30 AM EDTAssociated Order(s): Bronchoscopy Post-Procedure Diagnose(s): Acute hypoxic respiratory failure Bronchoscopy Performed by: Gt De La Paz MD Authorized by: Gt De La Paz MD Consent: Consent obtained: Verbal Consent given by: Spouse Risks discussed: Bleeding and pneumothorax Timeout: Immediately prior to procedure, a time out was called: yes Patient identity confirmed: Arm band Sedation: Sedation: Continuous IV sedation being administered. No additional sedation given during procedure Procedure details: Indication: Atelectasis This procedure was performed by: Gt De La Paz on: 03/13/2025 A cleaned bronchoscope was inserted via: Endotracheal tube Comments: Some external compression around DANIELLE but able to pass scope into all sub segments. BAL inRML. * Consults - Carmencita Chilel - 03/13/2025 8:37 AM EDTAssociated Order(s): IP CONSULT TO NUTRITION SERVICES Adult Nutrition Evaluation Note Last Santos 74 y.o. male CSN: [id number] Room/Bed 211/211A Nutrition evaluation type: assessment Reason for evaluation: provider consult Hospital course: 74 y/o M with a history of hypertension, hyperlipidemia, lung cancer, not currently on treatment aside from home treatment of ivermectin. Also COPD not on any oxygen at home. Presents as transfer from an outside hospital due to concerns for acute hypoxic respiratory failure. Intubated. Past medical/ surgical history: Medical History[1] Surgical History[2] Social history: Additional comments: Vitals and Basic Assessment: BP: 127/87 Temp: 37.2 ??C (99 ??F) Invasive Ventilator Initiated (ETT/Trach Only): Yes Oxygen Therapy: Supplemental oxygen O2 Delivery Method: Mechanical ventilator Philip Coma Scale Score: 6 Chandan/Cubbin Pressure Risk Score: 23 Edema: Generalized, Right upper extremity, Left upper extremity, Right lower extremity, Left lower extremity Allergies: Allergies[3] Medications: azithromycin, 500 mg, Nasogastric, Daily cefTRIAXone, 2 g, Intravenous, q24h esomeprazole, 40 mg, Nasogastric, Daily before breakfast heparin (porcine), 5,000 Units, Subcutaneous, q8h ARNOLDO insulin regular, 0-5 Units, Subcutaneous, q6h ARNOLDO ipratropium-albuterol, 3 mL, Nebulization, q6h RT levETIRAcetam, 750 mg, Nasogastric, BID mupirocin, 1 Application, Each Nostril, BID polyethylene glycol, 17 g, Nasogastric, Daily Meds were reviewed: Yes Labs: Lab Results Component Value Date GLUCOSE 148 (H) 03/13/2025 CALCIUM 9.2 03/13/2025 NA 136 03/13/2025 K 4.5 03/13/2025 CO2 25 03/13/2025 CL 99 03/13/2025 BUN 31 (H) 03/13/2025 CREATININE 2.10 (H) 03/13/2025 PHOS 2.8 03/13/2025 MG 1.7 (L) 03/13/2025 HGBA1C 5.4 08/02/2019 Anthropometrics: Height: 175.3 cm (5' 9 ) Weight: 109 kg (241 lb 2.9 oz) BMI (Calculated): 35.6 Weight Evaluation: Obese-Class 2 (BMI 35-39.9) [place] Body Weight (kg): 72.7 Percent [place] Body Weight: 150 Estimated Needs: Kcal/ K-14 Kcal Provided: 8483-4609 Kcal Needs Based On: Current weight Gm Protein/ Kg : 2+ Protein Provided: 145+ Protein Needs Based On: [place] weight ML/ Kg: Per team or 1 mL/kcal Metabolic Cart Study Results: Current Nutrition Intake: Diet Supplements: None Diet Order: NPO Diet Experience and Nutrition History: Diet Education Provided: Will monitor Pertinent home medications: Baptism needs: Nutrition Focused Physical Exam: Unable to Complete Exam: Weekend coverage Physical exam performed on (date): Assessment of Malnutrition: Malnutrition Identified: Additional Information Needed Nutrition Problem: Inadequate oral intake related to MV as evidenced by NPO. Status of Nutrition Diagnosis: New Nutrition Interventions and Recommendations: PO per DRAPERY WORKER/primary TF recs if warranted: Peptamen Intense VHP @ 70 mL/hr (1540 mL/day) provides 1540 kcal, 142g protein, 117g CHO, 6g fiber,59g fat, 1294 mL water and 103% RDIs vit/min. Free water per primary Nutrition Monitoring and Goals: Nutrition to start NFPE on follow up as able Monitor elytes, replace PRN Acuity Level: [address], LD Weekend Dietitian [1] Past Medical History: Diagnosis Date Diabetes ([facility]/HCC) High blood pressure Myocardial infarction (CMS/HCC) [2] Past Surgical History: Procedure Laterality Date CARDIAC CATHETERIZATION CORONARY STENT PLACEMENT 2009 s/p 1 cardiac stent placed. SKIN CANCER EXCISION 2020 [3] Allergies Allergen Reactions Fluticasone Unknown - Patient states they do not know rxn details * Care Plan - Saqib Iqbal - 03/13/2025 8:19 AM EDT Problem: Mechanical Ventilation Invasive Goal: Optimal Device Function Intervention: Optimize Device Care and Function Flowsheets (Taken 03/13/2025 0819) Airway/Ventilation Management: airway patency maintained humidification applied positive pressure ventilation provided oxygen therapy provided calming measures promoted position adjusted pulmonary hygiene promoted Airway Safety Measures: mask valve resuscitator at bedside manual resuscitator/mask at bedside suction at bedside oxygen flowmeter at bedside high-efficiency antimicrobial filters maintained * Progress Notes - Gt De La Paz MD - 03/13/2025 7:06 AM EDTAssociated Order(s): Critical Care Post-Procedure Diagnose(s): Lung mass; Pneumonia of right lung due to infectious organism, unspecified part of lung; Acute hypoxic on chronic hypercapnic respiratory failure Critical Care Performed by: Gt De La Paz MD Authorized by: Gt De La Paz MD Critical care provider statement: Critical care time (minutes): 30 Critical care time was exclusive of: Separately billable procedures and treating other patients andteaching time Critical care was time spent personally by me on the following activities: Development of treatmentplan with patient or surrogate, evaluation of patient's response to treatment, obtaining history from patient or surrogate, examination of patient, ordering and performing treatments and interventions, ordering and review of laboratory studies, ordering and review of radiographic studies, review ofold charts and ventilator management Critical care statement: I saw and evaluated the patient with the resident/ fellow. I discussed thecase with the resident/ fellow and agree with the findings and plan as documented. Subjective Discussed current progress and plan with family who were present at bedside. Family notes that patient had previously had nodule on lung biopsied, and had previously been told it was cancer by outside oncologist. For this patient had been taking Ivermectin, which per family he is convinced it works and it will be hard to tell him otherwise . Family notes they have had family members go through chemo therapy and patient saw how weak this made them, which is why he is so hesitant about trying chemo. Has been eating apricot pits as well as he has read that this is a good way to treat cancer per the internet. No acute concerns or complaints at this time. Family amenable to current plan and hope patient will be able to be extubated in near future Review of Systems Unable to assess at this time secondary to intubated/sedate status Objective Physical Exam GEN: intubated, NAD HEENT: no nystagmus, non-icteric. No discharge. Mucus membranes moist, pink PULM: MV in place, chest expansion equal bilaterally, no wheezes, rales, ronchi Cards; regular rate, no murmurs, rubs, gallops GI: soft, slightly distended. Bowel sounds wnl MSK: no clubbing, cyanosis, edema Neuro: unable to fully assess at this time Psych: unable to fully assess at this time. Last Recorded Vitals Blood pressure 113/54, pulse 82, temperature 37 ??C (98.6 ??F), resp. rate 20, height 1.753 m (5' 9 ), weight 109 kg (241 lb 2.9 oz), SpO2 94%. Assessment/Plan Principal Problem: Acute hypoxic on chronic hypercapnic respiratory failure Patient is a 74 yo M with PMH CAD (s/p inferior ID), COPD(no home O2), BPH, HTN, HLD, DM2, recent diagnosis of lung cancer (diagnosed Feburary, RUL hypermetabolic nodule, R peritracheal and hilar adenopathy) who presented to OSH for acute hypoxic respiratory failure requiring intubation for post obstructive pna. #Acute hypoxic respiratory failure requiring intubation and MV #Active lung malignancy of unknown etiology #Concern for R sided post-obstructive PNA in setting of pulmonary mass - Initially presented to OSH with complaints of progressive cough, sputum production, and BLACKWELL - Had also been more somnolent at home, likely related to worsening hypoxia - Recent diagnosis of lung malignancy per , underwent PET scan in 11/2024 which revealed hypermetabolic RUL nodule highly concerning for neoplasm along with R peritracheal and hilar adenopathy concerning for regional metastatic adenopathy. Had reported biopsy but unable to find results in chart and is unsure what specific type of lung cancer he was diagnosed with - Was reportedly supposed to undergo chemotherapy and radiation treatment with local oncologist in [place] (Liz Bryan), however patient wished to wait on treatment and had been taking Ivermectinat home - Hypoxic on arrival to OSH w/ O2 sats in 60's, placed on non-rebreather without significant improvement so was subsequently intubated - CT chest revealed patchy bilateral infiltrates and possible RLL consolidation concerning for post-obstructive PNA given R sided lung mass - CTH without large masses or lesions PLAN: - Wean MV settings as tolerated, goal SpO2 88% given hx of COPD - Bronch done at bedside this AM - Consider oncology consult for discussion of treatment options, - will wait till patient is awake - discussed with family at bedside that Ivermectin and apricot pits are not cancer treatment - will need to get records from primary oncologist in [place] Friday - MRI brain w/ and w/o ordered to assess for brain metastasis #Sepsis with concern for pulmonary source - Met SIRS criteria on arrival with tachycardia and tachypnea, possible pulmonary source given chest imaging findings - LA wnl, not currently hypotensive - S/p 1 dose of vancomycin and Zosyn at OSH PLAN: - Will continue CAP coverage for now with Rocephin, Azith. Will complete CAP course - Procal .11, CRP - Strep pneumo and legionella antigens negative - MRSA nares negative - Viral respiratory panel negative #Focal seizure like activity -patient loaded with Keppra PLAN -will continue Keppra at this time -will order EEG to further evaluate for seizures #CKD stage IIIb/IV #Hyperkalemia - Scr 2.08 on arrival, reported baseline has been 1.7-2 over past year or so - K at OSH 5.1, 6.1 on arrival here - Was intubated at OSH with succinylcholine, hyperkalemia could be related to this vs progressive worsening of renal function PLAN: - UA notable for leukocytes, blood, protein, no bacteria - Potassium temporized overnight, wnl. Will continue to monitor - Monitor intake and output - Avoid nephrotoxic agents, will need contrast with upcoming MRI but can get IVF if needed #Hx of COPD, unclear stage #Hx of severe tobacco use - Known COPD not on home oxygen, no previous PFT's in chart - reports 50+ year hx of smoking 2 ppd Chronic Medical Problems #HTN: hold home anti-hypertensives for now #HLD: can restart atorvastatin in AM #BPH: will hold home tamsulosin for now, restart when appropriate #T2DM: SSI #GERD: PPI #Chronic pain: hold home opioids while on sedation F: NPO for now A: dilaudid S: propofol T: holding pending possible bronch or biopsy H: > 30 degrees U: PPI G: SSI S: SAT/SBT as appropriate B: Miralax I: PIV, Grant, ETT, OG D: RocJulito arias Code Status: Full Anticipated in 2-4 Days * Care Plan - Osmany Borges - 03/13/2025 12:40 AM EDT Problem: Mechanical Ventilation Invasive Goal: Optimal Device Function Outcome: Ongoing, Progressing * Care Plan - Heraclio Gomez RN - 03/13/2025 12:04 AM EDT Problem: Infection Goal: Absence of Infection Signs and Symptoms Outcome: Ongoing, Progressing Problem: Mechanical Ventilation Invasive Goal: Effective Communication Outcome: Ongoing, Progressing Goal: Optimal Device Function Outcome: Ongoing, Progressing Goal: Mechanical Ventilation Liberation Outcome: Ongoing, Progressing Goal: Optimal Nutrition Delivery Outcome: Ongoing, Progressing Goal: Absence of Device-Related Skin and Tissue Injury Outcome: Ongoing, Progressing Goal: Absence of Ventilator-Induced Lung Injury Outcome: Ongoing, Progressing Problem: Fall Injury Risk Goal: Absence of Fall and Fall-Related Injury Outcome: Ongoing, Progressing * Hospital Course - Bernardo Chavez MD - 03/12/2025 9:46 PM EDT Last Santos is a 74 y.o. male w/ relevant hx of CAD (s/p inferior ID), COPD(no home O2), BPH,HTN, HLD, DM2, recent diagnosis of small cell lung cancer (diagnosed Feburary, RUL hypermetabolic nodule, R peritracheal and hilar adenopathy) who presented to OSH for acute hypoxic respiratory failure requiring intubation. He was treated for PNA, extubated 03/15, and weaned to 3-4L NC on day of discharge. HH PT/OT set up with home oxygen. [facility] consulted to discuss treatment options and patient continued to decline them. #AHRF req MV (s/p extubation) 2/2 PNA, resolving #Stage III Small Cell Lung Cancer - Biopsy results are in media tab--small cell lung cancer - Was reportedly supposed to undergo chemotherapy and radiation treatment with local oncologist in [place] (Liz Bryan) but declined treatment- takes Ivermectin at home, still not wanting to do chemo/radiation - Extubated 03/15 - down to 3-4L NC at time of discharge - BAL negative for malignancy and no organisms. No brain mets on MRI head - Completed CAP tx 03/16 w/ ceftriaxone/azith #CKD stage IIIb/IV #Hyperkalemia, resolved - Scr 2.08 on arrival, reported baseline has been 1.7-2 over past year or so. At baseline. HyperK resolved #Hx of COPD, unclear stage #Hx of severe tobacco use - Known COPD not on home oxygen, no previous PFT's in chart - reports 50+ year hx of smoking 2 ppd #Focal seizure like activity - patient loaded with Keppra - Keppra d/c'd, no further concerns for seizures * H&P - Lay Clark DO - 03/12/2025 9:22 PM EDT MICU H&P NOTE Date: 03/12/25 Chief complaint: Chief Complaint Patient presents with Shortness of Breath Subjective History Of Present Illness Last Santos is a 74 y.o. male w/ significant PMHx of CAD s/p inferior ID in 2007, COPD not onhome oxygen, BPH, HTN, HLD, T2DM complicated by peripheral neuropathy who presents from [facility] for acute hypoxic respiratory failure requiring intubation and MV and concern for possible post- obstructive pneumonia. at bedside and reports most of history as patient is currently intubated and sedated. She reports that over the past few days, he has had progressive somnolenceand falls asleep very easily. He has remained oriented but will fall asleep during conversations. She also reports that he has had intermittent uncontrolled movements in his upper extremities and hashad a hard time holding things and dropping them more frequently. Has also been coughing more recently with worsening sputum production and BLACKWELL. He was diagnosed with lung cancer back in November of this year but is unsure what specific type of cancer he has. He had a PET scan done which revealed hypermetabolic RUL nodule highly concerning for neoplasm along with R peritracheal and hilar adenopathy concerning for regional metastatic adenopathy. Discussion was had about initiating chemotherapy and radiation, however he declined these treatments and was reportedly self treating his cancer at home with Ivermectin for unknown period of time. Upon arrival to OSH, he was hypoxic with 02 saturations of 60% along with tachycardia and tachypnea. He was initially placed on a non-rebreather but became acutely agitated and more tachypneic, prompting intubation for airway protection and hypoxia. Labs significant for WBC 11K, Cr 2 (baseline appears to be 1.7-2), Na 135, K 5.1. CTH with no evidence of large intracranial mass or lesion, mild diffuse low intensity of white matter could be consistent with leukoencephalopathy, cerebral edema lesslikely. CTA head and neck without evidence of significant stenosis. CT chest with bilateral ground glass opacities and R lower lobe consolidation concerning for infection along with enlargement of R hilar and mediastinal lymph nodes concerning for progression of disease. CT a/p without acute intra-abdominal abnormality. He was given a dose of vancomycin and Zosyn and transferred to for furtherworkup and management of his acute hypoxic respiratory failure in the setting of possible post-obstr uctive pneumonia and progressive lung malignancy of unknown etiology. Review of Systems Constitutional: Negative for chills and fever. Respiratory: Positive for cough and shortness of breath. Negative for wheezing. Cardiovascular: Negative for chest pain, palpitations and leg swelling. Gastrointestinal: Negative for abdominal distention, diarrhea and vomiting. Genitourinary: Negative for dysuria. Skin: Negative for rash. Neurological: Negative for syncope, light-headedness and headaches. Past Medical History HeMedical History[1] Family History Family History[2] Non-contributory Social History He reports that he has been smoking cigarettes. He has never used smokeless tobacco. He reports that he does not drink alcohol and does not use drugs. Reports 50+ year history of 2 ppd of cigarettes, denies alcohol or illicit drug use Allergies Fluticasone Medications Prior to Admission medications Medication Sig Start Date End Date Taking? Authorizing Provider albuterol 108 (90 Base) MCG/ACT inhaler INHALE 2 PUFFS BY MOUTH EVERY 4 TO 6 HOURS NEEDED FOR SHORTNESS OF BREATH Rosie Elizondo MD allopurinol (Zyloprim) 300 MG tablet TAKE 1 TABLET BY MOUTH DAILY FOR GOUT Rosie Elizondo MD amLODIPine (Norvasc) 10 MG tablet Take 1 tablet (10 mg) by mouth every night. 02/09/24 Rosie Elizondo MD aspirin 325 MG EC tablet Take 1 tablet (325 mg) by mouth 1 (one) time each day in the evening. Rosie Elizondo MD aspirin 81 MG EC tablet Take 1 tablet (81 mg) by mouth 1 (one) time each day. Patient not taking: Reported on 04/13/2024 Rosie Elizondo MD atorvastatin (Lipitor) 10 MG tablet TAKE 1 TABLET BY MOUTH EVERY DAY AT BEDTIME FOR HLD 03/08/24 Rosie Elizondo MD ciprofloxacin (Cipro) 250 MG tablet Take 1 tablet (250 mg) by mouth 2 (two) times a day. Patient not taking: Reported on 04/22/2024 04/01/24 Rosie Elizondo MD Farxiga 10 MG tablet Take 1 tablet (10 mg) by mouth 1 (one) time each day. 10/13/23 Rosie Elizondo MD gabapentin (Neurontin) 600 MG tablet Take 1 tablet (600 mg) by mouth 1 (one) time each morning. 03/16/24 Rosie Elizondo MD HYDROcodone-acetaminophen (Dolores) 10-325 MG tablet Take 1 tablet (10 mg of hydrocodone) by mouth every 6 (six) hours if needed. Rosie Elizondo MD pantoprazole (Protonix) 40 MG EC tablet Take 1 tablet (40 mg) by mouth 2 (two) times a day. Rosie Elizondo MD tadalafil (Cialis) 5 MG tablet Take 1 tablet (5 mg) by mouth 1 (one) time each morning. 03/23/24 Rosie Elizondo MD tamsulosin (Flomax) 0.4 MG 24 hr capsule Take 1 capsule (0.4 mg) by mouth every night. 03/29/24 Rosie Elizondo MD Ubrelvy 100 MG tablet TAKE 1 TABLET BY MOUTH 1 TIME NEEDED FOR HEADACHE Patient not taking: Reported on 04/22/2024 12/05/23 Rosie Elizondo MD Current Medications[3] Objective Last Recorded Vitals Blood pressure 105/57, pulse 64, temperature 37.1 ??C (98.7 ??F), resp. rate 18, weight 113 kg (248lb 3.8 oz), SpO2 95%. Physical Exam Constitutional: Comments: Intubated and sedated Cardiovascular: Rate and Rhythm: Regular rhythm. Tachycardia present. Heart sounds: No murmur heard. No gallop. Pulmonary: Effort: No respiratory distress. Breath sounds: No wheezing. Comments: Mechanical breath sounds Abdominal: General: Abdomen is flat. There is no distension. Palpations: Abdomen is soft. Musculoskeletal: Right lower leg: No edema. Left lower leg: No edema. Skin: General: Skin is warm and dry. Findings: No bruising or rash. Neurological: Comments: Unable to assess Psychiatric: Comments: Unable to assess Results: Coags: INR Date Value Ref Range Status 03/12/2025 1.2 (H) 0.9 - 1.1 Final Prothrombin Time Date Value Ref Range Status 03/12/2025 14.6 (H) 12.0 - 14.3 sec Final CBC: WBC Count Date Value Ref Range Status 03/12/2025 9.02 3.70 - 10.30 10*3/uL Final HGB Date Value Ref Range Status 03/12/2025 12.3 (L) 13.7 - 17.5 g/dL Final HCT Date Value Ref Range Status 03/12/2025 39.2 (L) 40.0 - 51.0 % Final RBC Count Date Value Ref Range Status 03/12/2025 4.48 (L) 4.60 - 6.10 10*6/uL Final BMP: Sodium, Plasma Date Value Ref Range Status 04/07/2024 140 136 - 145 mmol/L Final Potassium, Plasma Date Value Ref Range Status 04/07/2024 5.1 (H) 3.7 - 4.8 mmol/L Final Chloride, Plasma Date Value Ref Range Status 04/07/2024 103 97 - 107 mmol/L Final BUN, Plasma Date Value Ref Range Status 04/07/2024 29 (H) 8 - 23 mg/dL Final CO2, Plasma Date Value Ref Range Status 04/07/2024 26 22 - 29 mmol/L Final Creatinine, Plasma Date Value Ref Range Status 04/07/2024 1.84 (H) 0.80 - 1.30 mg/dL Final Glucose, Plasma Date Value Ref Range Status 04/07/2024 88 74 - 99 mg/dL Final Add Ca++, LFT: AST, Plasma Date Value Ref Range Status 04/30/2019 15 1 - 40 U/L Final ALT, Plasma Date Value Ref Range Status 04/30/2019 10 1 - 41 U/L Final Total Bilirubin, Plasma Date Value Ref Range Status 04/30/2019 0.3 0.2 - 1.2 mg/dL Final ABG: POCT pH, Urine Date Value Ref Range Status 04/07/2024 5.5 5.0 to 8.0 Final HCO3, Arterial Date Value Ref Range Status 03/12/2025 28.6 (H) 22 - 26 mmol/L Final FIO2 Date Value Ref Range Status 03/12/2025 100.0 % Final Body Temperature Date Value Ref Range Status 03/12/2025 37.2 Celsius Final VBG: Base Excess/Deficit, Venous Date Value Ref Range Status 03/12/2025 3.7 (H) -2 - 3 mmol/L Final HCO3, Venous Date Value Ref Range Status 03/12/2025 30.8 (H) 22 - 26 mmol/L Final pCO2, Venous Date Value Ref Range Status 03/12/2025 57 (H) 40 - 55 mm Hg Final pH, Venous Date Value Ref Range Status 03/12/2025 7.34 7.32 - 7.43 Final pO2, Venous Date Value Ref Range Status 03/12/2025 46 (H) 25 - 40 mm Hg Final Lactate: Lactate, Arterial Date Value Ref Range Status 03/12/2025 0.7 0.5 - 1.6 mmol/L Final Imaging (past 24h): I personally visualized and interpreted all of the imaging studies below and I agree with formal interpretation. Assessment/Plan #Acute hypoxic respiratory failure requiring intubation and MV #Active lung malignancy of unknown etiology #Concern for R sided post-obstructive PNA in setting of pulmonary mass - Initially presented to OSH with complaints of progressive cough, sputum production, and BLACKWELL - Had also been more somnolent at home, likely related to worsening hypoxia - Recent diagnosis of lung malignancy per , underwent PET scan in 11/2024 which revealed hypermetabolic RUL nodule highly concerning for neoplasm along with R peritracheal and hilar adenopathy concerning for regional metastatic adenopathy. Had reported biopsy but unable to find results in chart and is unsure what specific type of lung cancer he was diagnosed with - Was reportedly supposed to undergo chemotherapy and radiation treatment with local oncologist in [place] (Liz Bryan), however patient wished to wait on treatment and had been taking Ivermectinat home - Hypoxic on arrival to OSH w/ O2 sats in 60's, placed on non-rebreather without significant improvement so was subsequently intubated - CT chest revealed patchy bilateral infiltrates and possible RLL consolidation concerning for post-obstructive PNA given R sided lung mass - CTH without large masses or lesions PLAN: - Wean MV settings as tolerated, goal SpO2 88% given hx of COPD - Could consider bronchoscopy in AM - Consider oncology consult for discussion of treatment options, will need to get records from primary oncologist in [place] - MRI brain w/ and w/o ordered to assess for brain metastasis #Sepsis with concern for pulmonary source - Met SIRS criteria on arrival with tachycardia and tachypnea, possible pulmonary source given chest imaging findings - LA wnl, not currently hypotensive - S/p 1 dose of vancomycin and Zosyn at OSH PLAN: - Will continue CAP coverage for now with CTX and azithromycin - Procal and CRP ordered - Strep pneumo and legionella antigens - MRSA nares - Viral respiratory panel #CKD stage IIIb/IV #Hyperkalemia - Scr 2.08 on arrival, reported baseline has been 1.7-2 over past year or so - K at OSH 5.1, 6.1 on arrival here - Was intubated at OSH with succinylcholine, hyperkalemia could be related to this vs progressive worsening of renal function PLAN: - Ordered UA - Temporizing K with albuterol, calcium gluconate, and insulin. Will repeat K after temporizing measures are done - Monitor intake and output - Avoid nephrotoxic agents, will need contrast with upcoming MRI but can get IVF if needed #Hx of COPD, unclear stage #Hx of severe tobacco use - Known COPD not on home oxygen, no previous PFT's in chart - reports 50+ year hx of smoking 2 ppd Chronic Medical Problems #HTN: hold home anti-hypertensives for now #HLD: can restart atorvastatin in AM #BPH: will hold home tamsulosin for now, restart when appropriate #T2DM: SSI #GERD: PPI #Chronic pain: hold home opioids while on sedation F: NPO for now A: dilaudid S: propofol T: holding pending possible bronch or biopsy H: > 30 degrees U: PPI G: SSI S: SAT/SBT as appropriate B: Miralax I: PIV, Grant, ETT, OG D: CTX and azithromycin Code Status: Full Lay Clark DO PGY-1 Internal Medicine [1] Past Medical History: Diagnosis Date Diabetes (CMS/HCC) High blood pressure Myocardial infarction (CMS/HCC) [2] Family History Problem Relation Name Age of Onset Malig Hyperthermia Neg Hx Anesthesia problems Neg Hx [3] Current Facility-Administered Medications Medication Dose Route Frequency Provider Last Rate Last Admin azithromycin (Zithromax) 500 mg in sodium chloride 0.9% 250 mL IVPB (vial adapter required) 500 mgIntravenous q24h Tate Dai MD cefTRIAXone (Rocephin) 2 g in sodium chloride 0.9% 100 mL IVPB (vial adapter required) 2 g Intravenous q24h Tate Dai MD HYDROmorphone (Dilaudid) bolus from bag 0.25 mg Intravenous q10 min PRN Tate Dai MD Or HYDROmorphone (Dilaudid) bolus from bag 0.5 mg Intravenous q10 min PRN Tate Dai MD 0.5 mg at 03/12/252045 hydromorphone 20 mg in NS 100 mL infusion (200 mcg/mL) 0.25-2 mg/hr Intravenous Titrated Tate Dai MD 2.5 mL/hr at 03/12/252045 0.5 mg/hr at 03/12/252045 midazolam (Versed) injection 2 mg 2 mg Intravenous q15 min PRN Tate Dai MD pantoprazole (Protonix) injection 40 mg 40 mg Intravenous Daily Tate Dai MD 40 mg at 03/12/252105 propofol (Diprivan) infusion 10 mg/mL 10-50 mcg/kg/min Intravenous Titrated Tate Dai MD 13.56 mL/hr at 03/12/252051 20 mcg/kg/min at 03/12/252051 Current Outpatient Medications Medication Sig Dispense Refill albuterol 108 (90 Base) MCG/ACT inhaler INHALE 2 PUFFS BY MOUTH EVERY 4 TO 6 HOURS NEEDED FOR SHORTNESS OF BREATH allopurinol (Zyloprim) 300 MG tablet TAKE 1 TABLET BY MOUTH DAILY FOR GOUT amLODIPine (Norvasc) 10 MG tablet Take 1 tablet (10 mg) by mouth every night. aspirin 325 MG EC tablet Take 1 tablet (325 mg) by mouth 1 (one) time each day in the evening. aspirin 81 MG EC tablet Take 1 tablet (81 mg) by mouth 1 (one) time each day. (Patient not taking: Reported on 04/13/2024) atorvastatin (Lipitor) 10 MG tablet TAKE 1 TABLET BY MOUTH EVERY DAY AT BEDTIME FOR HLD ciprofloxacin (Cipro) 250 MG tablet Take 1 tablet (250 mg) by mouth 2 (two) times a day. (Patient not taking: Reported on 04/22/2024) Farxiga 10 MG tablet Take 1 tablet (10 mg) by mouth 1 (one) time each day. gabapentin (Neurontin) 600 MG tablet Take 1 tablet (600 mg) by mouth 1 (one) time each morning. HYDROcodone-acetaminophen (Dolores) 10-325 MG tablet Take 1 tablet (10 mg of hydrocodone) by mouth every 6 (six) hours if needed. pantoprazole (Protonix) 40 MG EC tablet Take 1 tablet (40 mg) by mouth 2 (two) times a day. tadalafil (Cialis) 5 MG tablet Take 1 tablet (5 mg) by mouth 1 (one) time each morning. tamsulosin (Flomax) 0.4 MG 24 hr capsule Take 1 capsule (0.4 mg) by mouth every night. Ubrelvy 100 MG tablet TAKE 1 TABLET BY MOUTH 1 TIME NEEDED FOR HEADACHE (Patient not taking: Reported on 04/22/2024) Cosigned by Mariah Mcgowan MD at 03/12/2025 11:34 PM EDT Associated attestation - Mariah Mcgowan MD - 03/12/2025 11:34 PM EDT I saw and evaluated the patient with the resident/fellow [facility] visual [facility] as available. I discussed the case with the resident/fellow and agree with the findings and plan as documented. * ED Procedure Note - Staci Jones MD - 03/12/2025 8:41 PM EDTAssociated Order(s): Critical Care Procedure Reason: critical care Critical Care Performed by: Staci Jones MD Authorized by: Staci Jones MD Critical care provider statement: Critical care time (minutes): 35 Critical care time was exclusive of: Separately billable procedures and treating other patients andteaching time Critical care was time spent personally by me on the following activities: Development of treatmentplan with patient or surrogate, discussions with consultants, examination of patient, ventilator management, ordering and review of radiographic studies, ordering and performing treatments and interventions and ordering and review of laboratory studies I assumed subsequent critical care for this patient from a provider in my division, on the same day: yes Critical care statement: I saw and evaluated the patient with the resident/ fellow. I discussed thecase with the resident/ fellow and agree with the findings and plan as documented. Staci Jones MD 03/15/25 1600 * ED Provider Notes - Tate Dai MD - 03/12/2025 8:41 PM EDT Images from the original note were not included. - HPI Chief Complaint Patient presents with Shortness of Breath HPI Patient is a 74-year-old male with a history of hypertension, hyperlipidemia, lung cancer, not currently on treatment aside from home treatment of ivermectin. Also COPD not on any oxygen at home. Presents as transfer from an outside hospital due to concerns for acute hypoxic respiratory failure. Reportedly, has had worsening cough and shortness of breath over the last several days, presented outside hospital and was initially saturating in the 60s. Placed on a non-rebreather with improvement, given treatments and imaging modalities as evidenced in the ED course per my review of the EMR. Unfortunately, during his stay at the outside ED, he became acutely altered and tachypneic requiring intub ation. Concern for postobstructive pneumonia, given broad-spectrum antibiotics and transferred herefor further evaluation. EMS stopped all drips and gave him fentanyl pushes EN route for sedation. On arrival, he is blue in the face and coughing and this synchronous with the ventilator. After propofol and fentanyl pushes with a Dilaudid drip added, patient was much more calm. During this time, patient pupils are equal round and reactive and who was moving all of his extremities. Sounded wheezy bilaterally, 3 DuoNebs run through ventilator circuit with some improvement. Brought hematologic labworkup. We will defer cross-sectional imaging given obtained mercado scans at outside hospital. We will continue antibiotics here. Medical ICU consulted. I had an interactive discussion with the service provider regarding patient's presentation, physical exam, and workup performed in the emergency department. Ultimately, they agree to admit the patient to their service for further workup and definitive management he will be transferred in hemodynamically stable condition not on any pressors. Patient History Medical History[1] Surgical History[2] Family History[3] Social History[4] Allergies: Allergies[5] Physical Exam ED Triage Vitals [03/12/252035] Temp Heart Rate Resp BP 37.3 ??C (99.1 ??F) 70 13 108/69 SpO2 Temp Source Heart Rate Source Patient Position 90 % Axillary Monitor Lying BP Location FiO2 (%) Right arm -- Physical Exam Vitals and nursing note reviewed. Constitutional: General: He is in acute distress. Appearance: He is ill-appearing. HENT: Head: Normocephalic and atraumatic. Mouth/Throat: Comments: OETT Eyes: Conjunctiva/sclera: Conjunctivae normal. Cardiovascular: Rate and Rhythm: Normal rate and regular rhythm. Pulses: Normal pulses. Heart sounds: No murmur heard. Pulmonary: Effort: Pulmonary effort is normal. No respiratory distress. Breath sounds: Decreased breath sounds and wheezing present. Abdominal: Palpations: Abdomen is soft. Tenderness: There is no abdominal tenderness. Musculoskeletal: General: No swelling. Cervical back: Neck supple. Right lower leg: Edema present. Left lower leg: Edema present. Skin: General: Skin is warm and dry. Capillary Refill: Capillary refill takes less than 2 seconds. Neurological: Comments: GCS 1-5-1T Psychiatric: Mood and Affect: Mood normal. Jean-Paul Coma Scale Score: 7 ED Course & MDM - Assessment: 74 y.o. male presents to ED with complaint of AHRF. It should be noted that the chronic conditions includes as above, which currently is not at goal therapy. This complicates the clinical picture because it Comorbidities: may be exacerbating symptoms, increases the amount and complexity of data to be reviewed, and complicates the clinical workup Differential Diagnosis: PNA, AHRF, shock, In order to fully explore the differential diagnosis the following treatments and tests were ordered: ED Medication Administration from 03/12/2025 1816 to 03/12/20252113 Date/Time Order Dose Route Action 03/12/20252034 EDT fentaNYL (Sublimaze) injection 100 mcg 100 mcg Intravenous Given 03/12/20252043 EDT propofol (Diprivan) infusion 10 mg/mL 30 mcg/kg/min Intravenous New Bag 03/12/20252044 EDT ipratropium-albuterol (Duo-Neb) 0.5-2.5 mg/3 mL nebulizer solution 9 mL 9 mL Nebulization Given 03/12/20252045 EDT HYDROmorphone (Dilaudid) bolus from bag -- Intravenous See Alternative 03/12/20252045 EDT HYDROmorphone (Dilaudid) bolus from bag 0.5 mg Intravenous Bolus from Bag 03/12/20252045 EDT hydromorphone 20 mg in NS 100 mL infusion (200 mcg/mL) 0.5 mg/hr Intravenous New Bag 03/12/20252051 EDT propofol (Diprivan) infusion 10 mg/mL 20 mcg/kg/min Intravenous Rate Change - Dual Sign 03/12/20252105 EDT pantoprazole (Protonix) injection 40 mg 40 mg Intravenous Given 03/12/20252111 EDT fentaNYL (Sublimaze) injection 100 mcg -- Intravenous Canceled Entry All Other Orders Ordered Status Ordering Provider 03/12/252042 Triglycerides Every Mon/Viviane Comments: Please draw lab from area not near where Propofol is infusing. If Propofol is discontinued. Triglyceride monitoring is not indicated. Start Status Ordering Provider 03/14/25 06 Scheduled TATE DAI 03/17/25 06 Scheduled REGLA, TATE Young 03/21/25 06 Scheduled REGLA, TATE Young 03/24/25 06 Scheduled REGLA, TATE Young 03/28/25 06 Scheduled REGLA, TATE Young 03/31/25 06 Scheduled REGLA, TATE Young 04/04/25 0600 Scheduled REGLA, TATE Young 04/07/25 06 Scheduled TATE DAI Acknowledged TATE DAI 03/12/252101 SBT - Assess for SBT readiness and complete SBT trial when criteria met Daily Order ID Start Status Ordering Provider [id number] 03/13/25 0800 Acknowledged THE, STACI S 03/14/25 06 Scheduled THE, STACI S 03/15/25 06 Scheduled THE, STACI S 03/16/25599 Scheduled THE, STACI S 03/17/25599 Scheduled THE, STACI S Acknowledged THE, STACI S 03/12/252101 Suction secretions Every 8 hours Acknowledged THE, STACI S 03/12/252101 POCT Arterial Blood Gas GEM Once Comments: to Be Drawn AFTER Intubation Completed THE, STACI S 03/12/252101 Vital Signs Every 1 hour Acknowledged THE, STACI S 03/12/252113 Once Canceled SAQIB WILLINGHAM 03/12/252112 XR Abdomen 1 View Once In process TATE DAI 03/12/252101 Ventilator - Adult - Vent Mode: PRVC/APV; Set Tidal Volume (mL): 500; PEEP (cm H2O): 10; Set Resp Rate: 18; Titrate O2 for sat goal of (%): 92% Continuous Order ID Start Status Ordering Provider [id number] 03/12/252102 Completed THE, STACI S [id number] 03/13/25799 Acknowledged THE, STACI S [id number] 03/13/251999 Acknowledged THE, STACI S 03/14/25799 Scheduled THE, STACI S 03/14/251999 Scheduled THE, STACI S 03/15/25799 Scheduled THE, STACI S 03/15/251999 Scheduled THE, STACI S 03/16/25799 Scheduled THE, STACI S 03/16/251999 Scheduled THE, STACI S Acknowledged THE, STACI S 03/12/252101 End Tidal co2 Monitoring Continuous Order ID Start Status Ordering Provider [id number] 03/12/252102 Acknowledged THE, STACI S [id number] 03/13/25799 Acknowledged THE, STACI S [id number] 03/13/251999 Acknowledged THE, STACI S 03/14/25799 Scheduled THE, STACI S 03/14/251999 Scheduled THE, STACI S 03/15/25799 Scheduled THE, STACI S 03/15/251999 Scheduled THE, STACI S 03/16/25799 Scheduled THE, STACI S 03/16/251999 Scheduled THE, STACI S Acknowledged THE, STACI S 03/12/252101 SAT-Spontaneous Awakening Trial Sedation vacations and assess readiness to extubatedaily and prn Until discontinued Acknowledged THE, STACI S 03/12/252101 Adjust HOB (specify) 30 degrees (30-45 degrees) Once Acknowledged THE, STACI S 03/12/252101 Swab oral cavity every 2 hours and PRN to cleanse and maintain oral mucosal integrityUntil discontinued Acknowledged THE, STACI S 03/12/252101 [place] teeth every 12 hours Until discontinued Acknowledged THE, STACI S 03/12/252101 Continuous Pulse Oximetry Until discontinued Acknowledged THE, STACI S 03/12/252101 PT eval and treat Until therapy completed Acknowledged THE, STACI S 03/12/252101 OT eval and treat Until therapy completed Acknowledged THE, STACI S 03/12/252056 POCT arterial blood gas gem PROCEDURE ONCE Final result THE, STACI S 03/12/252099 Consult to MICU Once Specialty: Intensive Care Provider: (Not yet assigned) Acknowledged TATE DAI 05/17/25 2100 ED to floor bed request Once Completed [facility] 03/12/252047 Methemoglobin Once Final result [facility] 03/12/252047 Initiate contact isolation Continuous Comments: Added via Instant Order OPA Acknowledged BPA, INSTANT ORDERS 03/12/252047 Initiate droplet isolation Continuous Comments: Added via Instant Order OPA Acknowledged BPA, INSTANT ORDERS 03/12/252047 Initiate N95 isolation Continuous Comments: Added via Instant Order OPA Acknowledged BPA, INSTANT ORDERS 03/12/252047 Initiate eye protection Continuous Comments: Added via Instant Order OPA Acknowledged BPA, INSTANT ORDERS 03/12/252045 Streptococcus pneumoniae and Legionella Urinary Antigen Once In process [facility] 03/12/252045 Methicillin Resistant Staphylococcus aureus (MRSA) by PCR Once In process [facility] 03/12/252045 STAT Canceled [facility] 03/12/252045 Nasopharyngeal Respiratory Panel Once In process [facility] 03/12/252045 SARS CoV-2/COVID-19 by PCR - Rapid PROCEDURE ONCE In process [facility] 03/12/252045 Procalcitonin STAT In process [facility] 03/12/252045 Hepatitis C Antibody - ED Once In process [facility] 03/12/252045 ED Protocol - HIV 1/2 Antibody/Antigen Screen Once In [facility] 03/12/252045 ED HIV 1/2 Antibody/Antigen Screen w/Reflex to HIV 1/2 Differentiation PROCEDURE ONCE In process [facility] 03/12/[address] [facility] 03/12/[address] [facility] 03/12/252045 Troponin now and 120 min STAT In process [facility] 03/12/252045 STAT Canceled [facility] 03/12/252042 ICU Target Pain Score Until discontinued Comments: Initiate and titrate analgesia to attain goal CPOT first prior to initiating sedation unless otherwise ordered. Goal is to provide adequate pain management prior to initiating sedative agents. Target consistent patient goal CPOT as ordered. Document CPOT per nursing policy prior to and following PRN dosing and with any changes in infusionrate. Acknowledged [facility]ATE 03/12/252042 Target arousal level: Until discontinued Comments: Target consistent patient goal RASS as ordered. Document RASS every 2 hours and before and after PRN bolus dosing and with any changes in infusion rate. If deep sedation requested by provider, notify provider for updated RASS goal order. Acknowledged TATE DAI 03/12/252045 Blood Culture (Aerobic/Anaerobet Set) STAT Collected TATE DAI 03/12/252045 Blood Culture (Aerobic/Anaerobet Set) STAT In process TATE DAI 03/12/252045 CBC w/diff STAT Final result TATE DAI 03/12/252045 PT-INR STAT Final result TATE DAI 03/12/252040 POCT venous blood gas gem PROCEDURE ONCE Final result POCT, GENERIC PROVIDER 03/12/252040 EKG now - STAT (adult) Once Preliminary result TATE DAI 03/12/252040 XR Chest 1 View One time imaging In process [facility] ED Course as of 03/12/252126 Sat March 12, 20252049 Patient received 2 L of LR at outside hospital, vancomycin 2500 mg at 1800, 3.375 of Zosyn at 6:00 p.m.. DuoNebs and [address] head reviewed from outside hospital and demonstrates mild diffuse low density in the white matter cerebral edema as possible. CTAs demonstrate no large vessel occlusion. [WH] 2101 EKG now - STAT (adult) Patient's EKG was independently reviewed by me, and interpreted to be significant for NSR, no acuteST-segment changes. Right bundle-branch block, intervals within normal limits, not acutely actionable. [WH] 2114 XR Chest 1 View Independently interpreted by myself to demonstrate appropriate position of the ET tube with no evidence of pneumothorax. Appears to be a focal consolidation in the right lower lobe [WH] 2115 XR Abdomen 1 View Independently interpreted by myself to demonstrate appropriate positioning O G- tube. [WH] 2119 Methemoglobin: 0.6 wnl [WH] 2124 pH, Arterial: 7.34 Independently reviewed by myself to demonstrate good oxygenation, but is on 100% FiO2, we will begin weaning. Currently requiring 10 of PEEP, but peak inspiratory pressures are less than 30. [] ED Course User Index [WH] Tate Dai MD Clinical Impressions as of 03/12/252126 Acute hypoxic respiratory failure Pneumonia of right lung due to infectious organism, unspecified part of lung Social Determinates of Health Risks (including Economic Stability, Education and level of understanding, Healthcare access and quality and concerning social factors): Poor health literacy Ultimately, this patient was Was admitted (Admission) The primary encounter diagnosis was Acute hypoxic respiratory failure. A diagnosis of Pneumonia of right lung due to infectious organism, unspecified part of lung was also pertinent to this visit.. Patient believed to require admission for the listed diagnoses. The MICU service was consulted for admission and was agreeable to admit to ICU. ED Prescriptions None Disposition Admit Admitting/Attending Physician: MARIAH MCGOWAN [[id number]] Provider Care Team: [facility] MICU 2 [88] Are they the primary team?: Yes [1] - [1] Past Medical History: Diagnosis Date Diabetes (CMS/HCC) High blood pressure Myocardial infarction (CMS/HCC) [2] Past Surgical History: Procedure Laterality Date CARDIAC CATHETERIZATION CORONARY STENT PLACEMENT 2009 s/p 1 cardiac stent placed. SKIN CANCER EXCISION 2020 [3] Family History Problem Relation Name Age of Onset Malig Hyperthermia Neg Hx Anesthesia problems Neg Hx [4] Tobacco Use Smoking status: Every Day Types: Cigarettes Smokeless tobacco: Never Vaping Use Vaping status: Never Used Substance Use Topics Alcohol use: Never Drug use: Never [5] Allergies Allergen Reactions Fluticasone Unknown - Patient states they do not know rxn details Tate Dai MD Resident 03/12/252126 Cosigned by Staci Jones MD at 03/12/2025 10:31 PM EDT Associated attestation - Staci Jones MD - 03/12/2025 10:31 PM EDT I saw and evaluated the patient with the resident/fellow. I discussed the case with the resident/fellow and agree with the findings and plan as documented. * ED Triage Notes - Jose Menon RN - 03/12/2025 8:41 PM EDT Pt arrived by EMS from OSH, reports he was seen for SOA and found to be hypoxic (EMS reports OSH told them 60-70% on RA) Placed on NRB and did not improve, so intubated prior to transfer. Hx of TOOL STRAIGHTENER w/ no supplemental O2 at baseline, Lung cx (self treats at home with Ivermectin). VS stable en route per EMS report documented in this encounter Plan of Treatment Pending Results Name Type Priority Associated Diagnoses Date /Time AFB Culture, Respiratory Source and Acid Fast Stain Microbiology Routine 03/13/2025 11:34 AM EDT Fungal Culture, Respiratory and ADAIR Microbiology Routine 03/13/2025 1 1:34 AM EDT Scheduled Orders Name Type Priority Associated Diagnoses Orde r Schedule Respiratory Culture and Gram Stain Microbiology Routine Once (Lab) for 1 Occurrences starting 03/12/2025 until 03/12/2025 Scheduled Referrals Name Type Priority Associated Diagnoses Order Schedule Discharge Ambulatory referral to Home Health Outpatient Referral Routine Acute hypoxic on chronic hypercapnic respiratory failure Expected: 03/17/2025, Expires: 09/16/2026 Ambulatory referral to External PCP Outpatient Referral Routine Acute hypoxic respiratory failure Pneumonia of right lung due to infectious organism, unspecified part of lung Lung mass Pulmonary emphysema, unspecified emphysema type (CMS/HCC) Small cell carcinoma of right lung, unspecified part of lung 1 Occurrences starting 03/17/2025 until 09/17/2026 documented as of this encounter Procedures Procedure Name Priority Date/Time Associated Diagnosis Comments POCT GLUCOSE METER UNSOLICITED RESULTS Routine 03/17/2025 8:31 AM EDT CBC W/O DIFFERENTIAL Routine 03/17/2025 5:29 AM EDT BLOOD GAS PANEL, VENOUS Routine 03/17/20 5:29 AM EDT BASIC METABOLIC PANEL, PLASMA Routine 03/17/2025 5:29 AM EDT POCT GLUCOSE METER UNSOLICITED RESULTS Routine 03/16/2025 7:58 PM EDT POCT GLUCOSE METER UNSOLICITED RESULTS Routine 03/16/2025 5:50 PM EDT OXYGEN THERAPY Routine 03/16/2025 4:03 PM EDT OXYGEN THERAPY Routine 03/16/2025 4:03 PM EDT POCT GLUCOSE METER UNSOLICITED RESULTS Routine 03/16/2025 11:42 AM EDT POCT GLUCOSE METER UNSOLICITED RESULTS Routine 03/16/2025 8:01 AM EDT NON-INVASIVE VENTILATION Routine 03/16/2025 8:00 AM EDT CBC W/O DIFFERENTIAL Routine 03/16/2025 6:07 AM EDT BLOOD GAS PANEL, VENOUS Routine 03/16/20 6:07 AM EDT BASIC METABOLIC PANEL, PLASMA Routine 03/16/2025 6:07 AM EDT POCT GLUCOSE METER UNSOLICITED RESULTS Routine 03/16/2025 12:50 AM EDT OXYGEN THERAPY Routine 03/15/2025 11:40 PM EDT POCT GLUCOSE METER UNSOLICITED RESULTS Routine 03/15/2025 11:33 PM EDT POCT GLUCOSE METER UNSOLICITED RESULTS Routine 03/15/2025 8:33 PM EDT NON-INVASIVE VENTILATION Routine 03/15/2025 8:00 PM EDT POCT GLUCOSE METER UNSOLICITED RESULTS Routine 03/15/2025 5:58 PM EDT POCT GLUCOSE METER UNSOLICITED RESULTS Routine 03/15/2025 1:06 PM EDT POCT GLUCOSE METER UNSOLICITED RESULTS Routine 03/15/2025 12:11 PM EDT NON-INVASIVE VENTILATION Routine 03/15/2025 8:00 AM EDT POCT GLUCOSE METER UNSOLICITED RESULTS Routine 03/15/2025 6:29 AM EDT CBC W/O DIFFERENTIAL Routine 03/15/2025 3:27 AM EDT BLOOD GAS PANEL, VENOUS Routine 03/15/20 3:27 AM EDT BASIC METABOLIC PANEL, PLASMA Routine 03/15/2025 3:27 AM EDT BLOOD GAS PANEL, VENOUS Routine 03/14/20 10:21 PM EDT OXYGEN THERAPY Routine 03/14/2025 8:00 PM EDT NON-INVASIVE VENTILATION Routine 03/14/2025 8:00 PM EDT POCT GLUCOSE METER UNSOLICITED RESULTS Routine 03/14/2025 5:01 PM EDT OXYGEN THERAPY Routine 03/14/2025 2:47 PM EDT OXYGEN THERAPY Routine 03/14/2025 2:47 PM EDT OXYGEN THERAPY Routine 03/14/2025 2:47 PM EDT BLOOD GAS PANEL, VENOUS Routine 03/14/20 2:19 PM EDT HC EEG,W/AWAKE & DROWSY RECORD - EEG AWAKE OR DROWSY PORTABLE Routine 03/14/2025 1:31 PM EDT NON-INVASIVE VENTILATION Routine 03/14/2025 12:38 PM EDT NON-INVASIVE VENTILATION Routine 03/14/2025 12:38 PM EDT EXTUBATION Routine 03/14/2025 12:33 PM EDT EXTUBATION Routine 03/14/2025 12:28 PM EDT POCT GLUCOSE METER UNSOLICITED RESULTS Routine 03/14/2025 12:03 PM EDT AR CRITICAL CARE, E/M 30-74 MINUTES Routine 03/14/2025 7:18 AM EDT Acute hypoxic respiratory failure Pneumonia of right lung due to infectious organism, unspecified part of lung Lung mass POCT GLUCOSE METER UNSOLICITED RESULTS Routine 03/14/2025 6:23 AM EDT MR HEAD WO IV CONTRAST STAT 1:55 AM EDT CBC W/O DIFFERENTIAL Routine 03/14/2025 12:34 AM EDT TRIGLYCERIDES, PLASMA STAT 03/14/2025 12:34 AM EDT BLOOD GAS PANEL, VENOUS Routine 03/14/20 12:34 AM EDT BASIC METABOLIC PANEL, PLASMA Routine 03/14/2025 12:34 AM EDT POCT GLUCOSE METER UNSOLICITED RESULTS Routine 03/14/2025 12:30 AM EDT POCT GLUCOSE METER UNSOLICITED RESULTS Routine 03/13/2025 6:25 PM EDT VENTILATOR - ADULT Routine 03/13/2025 3: 23 PM EDT VENTILATOR - ADULT Routine 03/13/2025 3: 23 PM EDT POCT GLUCOSE METER UNSOLICITED RESULTS Routine 03/13/2025 12:14 PM EDT BRONCHOALVEOLAR LAVAGE CELL COUNT W/ DIFF Routine 03/13/2025 11:34 AM EDT FUNGAL CULTURE, RESPIRATORY AND ADAIR Routine 03/13/2025 11:34 AM EDT AFB CULTURE, RESPIRATORY SOURCE AND ACID FAST STAIN Routine 03/13/2025 11:34 AM EDT BAL COMPREHENSIVE RESPIRATORY PANEL BY PCR Routine 03/13/2025 11:34 AM EDT PNEUMOCYSTIS JIROVECII BY PCR (SO) Routine 03/13/2025 11:34 AM EDT BODY FLUID, CYTOSPIN, PATHOLOGIST INTERPRETATION Routine 03/13/2025 11:34 AM EDT ASPERGILLUS GALACTOMANNAN BAL (SO) Routine 03/13/2025 11:34 AM EDT QUANTITATIVE BAL/PAL/BRONCH WASH CULTURE AND GRAM STAIN Routine 03/13/2025 11:34 AM EDT NON-GYNECOLOGIC CYTOLOGY Routine 03/13/2025 11:34 AM EDT BEDSIDE BRONCHOSCOPY Routine 03/13/2025 10:30 AM EDT Acute hypoxic respiratory failure END TIDAL CO2 MONITORING Routine 03/13/2025 8:00 AM EDT AR CRITICAL CARE, E/M 30-74 MINUTES Routine 03/13/2025 7:06 AM EDT Pneumonia of right lung due to infectious organism, unspecified part of lung Acute hypoxic on chronic hypercapnic respiratory failure Lung mass POCT GLUCOSE METER UNSOLICITED RESULTS Routine 03/13/2025 6:22 AM EDT SBT - SPONTANEOUS BREATHING TRIAL Routine 03/13/2025 6:00 AM EDT POCT GLUCOSE METER UNSOLICITED RESULTS Routine 03/13/2025 12:58 AM EDT LACTATE, VENOUS Routine 03/13/2025 12:57 AM EDT IONIZED CALCIUM, SERUM Routine 12:57 AM EDT CBC W/O DIFFERENTIAL Routine 03/13/2025 12:57 AM EDT PHOSPHORUS, PLASMA Routine 03/13/2025 12 :57 AM EDT MAGNESIUM, PLASMA Routine 03/13/2025 12: 57 AM EDT BLOOD GAS PANEL, VENOUS Routine 03/13/20 25 12:57 AM EDT COMPREHENSIVE METABOLIC PANEL, PLASMA Routine 03/13/2025 12:57 AM EDT VENTILATOR - ADULT Routine 03/13/2025 12 :39 AM EDT URINALYSIS MICROSCOPIC FOR UA REFLEX Routine 03/12/2025 11:05 PM EDT OPIATES, LCMSMS, URINE Routine 11:05 PM EDT DRUG ABUSE SCREEN, URINE Routine 03/12/2025 11:05 PM EDT FENTANYL, URINE Routine 03/12/2025 11:05 PM EDT URINALYSIS WITH REFLEX MICROSCOPIC Routine 03/12/2025 11:05 PM EDT CATHY AURIS SURVEILLANCE BY PCR Routine 03/12/2025 10:18 PM EDT MULTI DRUG RESISTANCE TEST Routine 03/12/2025 10:18 PM EDT TROPONIN T, HIGH SENSITIVITY, 2 HOUR, PLASMA Timed 03/12/2025 10:17 PM EDT POTASSIUM, PLASMA Routine 03/12/2025 10: 17 PM EDT POCT GLUCOSE METER UNSOLICITED RESULTS Routine 03/12/2025 10:14 PM EDT XR CHEST 1 VIEW STAT 03/12/2025 9:21 PM EDT XR ABDOMEN 1 VIEW STAT 03/12/2025 9:2 1 PM EDT BLOOD CULTURE (AEROBIC/ANAEROBIC SET) STAT 03/12/2025 9:12 PM EDT BLOOD CULTURE (AEROBIC/ANAEROBIC SET) STAT 03/12/2025 9:07 PM EDT METHEMOGLOBIN STAT 03/12/2025 9:07 PM EDT END TIDAL CO2 MONITORING Routine 03/12/2025 9:02 PM EDT END TIDAL CO2 MONITORING Routine 03/12/2025 9:02 PM EDT END TIDAL CO2 MONITORING Routine 03/12/2025 9:02 PM EDT SBT - SPONTANEOUS BREATHING TRIAL Routine 03/12/2025 9:02 PM EDT VENTILATOR - ADULT Routine 03/12/2025 9: 02 PM EDT STREPTOCOCCUS PNEUMONIAE AND LEGIONELLA URINARY ANTIGEN STAT 03/12/2025 9:00 PM EDT POCT ARTERIAL BLOOD GAS GEM UNSOLICITED RESULTS Routine 03/12/2025 8:57 PM EDT SARS COV-2/COVID-19 BY PCR - RAPID STAT 03/12/2025 8:53 PM EDT NASOPHARYNGEAL RESPIRATORY PANEL STAT 03/12/2025 8:53 PM EDT METHICILLIN RESISTANT STAPHYLOCOCCUS AUREUS (MRSA) BY PCR STAT 03/12/2025 8:53 PM EDT ECG ADULT STAT 03/12/2025 8:49 PM EDT ED HIV 1/2 ANTIBODY/ANTIGEN SCREEN WITH REFLEX TO HIV I/II DIFFERENTIATION STAT 03/12/2025 8:48 PM EDT TSH REFLEX FT4 Add-On 03/12/2025 8:48 PM EDT ED PROTOCOL HIV 1/2 ANTIBODY/ANTIGEN SCREEN W/REFLEX TO HIV 1/2 ANTIBODY DIFFERENTIATION STAT 03/12/2025 8:48 PM EDT TROPONIN T, HIGH SENSITIVITY, 0 HOUR, PLASMA, REFLEX TO 2 HOUR STAT 03/12/2025 8:48 PM EDT EXTRA TUBE LIGHT GREEN TOP Routine 03/12/2025 8:48 PM EDT EXTRA TUBE LIGHT BLUE TOP Routine 03/12/2025 8:48 PM EDT EXTRA TUBES Routine 03/12/2025 8:48 PM EDT PROCALCITONIN, PLASMA STAT 03/12/2025 8:48 PM EDT HEPATITIS C ANTIBODY - ED W/REFLEX TO HCV QUANT PCR STAT 03/12/2025 8:48 PM EDT PROTHROMBIN TIME(PT) / INR STAT 03/12/2025 8:48 PM EDT CBC WITH AUTO DIFFERENTIAL STAT 03/12/2025 8:48 PM EDT C-REACTIVE PROTEIN, PLASMA Add-On 03/12/2025 8:48 PM EDT MAGNESIUM, PLASMA STAT 03/12/2025 8:4 8 PM EDT COMPREHENSIVE METABOLIC PANEL, PLASMA STAT 03/12/2025 8:48 PM EDT POCT VENOUS BLOOD GAS GEM UNSOLICITED RESULTS Routine 03/12/2025 8:41 PM EDT AR CRITICAL CARE, ADDL 30 MIN Routine 03/12/2025 8:41 PM EDT documented in this encounter Results * POCT glucose meter (03/17/2025 8:31 AM EDT) POCT Glucose 99 74 - 99 mg/dL 03/17/2025 8:33 AM EDT [facility] Comment:Accuracy of a glucos e result obtained from a capillary whole blood specimen relies upon adequate, non-compromised capillary blood flow. If the capillary glucose result is not consistent with the patient's clinical signs and symptoms, glucose testing should be repeated with either an arterial or venous sample on the glucometer or sent to the main labortory for testing. Comment 03/17/2025 8:33 AM EDT [facility] Manager Hardware ID Lindsey Zamora 03/17/2025 8:33 AM EDT [facility]ALTH[facility]ARE [facility] Device ID [id number] 03/17/2025 8:33 AM EDT [facility] Specimen Type POC Capillary 03/17/2025 8:33 AM EDT [facility] Blood Capillary blood specimen / Unknown 03/17/2025 8:31 AM EDT 03/17/2025 8:33 AM EDT us Bernardo Chavez MD LAB POINT OF CARE TE ST DOCKED DEVICE UNSOLICITED RESULTS Final Result [facility] [address] [place] [id number] * (ABNORMAL) Basic metabolic panel (03/17/2025 5:29 AM EDT) Glucose, Plasma 90 74 - 99 mg/dL 03/17/2025 6:12 AM EDT [facility] BUN, Plasma 17 8 - 23 mg/dL 03/17/2025 6:12 AM EDT [facility] Creatinine, Plasma 1.31(H) 0.70 - 1.20 mg/dL 03/17/2025 6:12 AM EDT [facility] BUN/Creatinine Ratio 13 03/17/2025 6:12 AM EDT [facility] Sodium, Plasma 139 136 - 145 mmol/L 03/17/2025 6:12 AM EDT [facility] Potassium, Plasma 4.8 3.6 - 4.9 mmol/L 03/17/2025 6:12 AM EDT [facility] Comment:Hemolyzed, result ma y be falsely increased. Chloride, Plasma 102 97 - 107 mmol/L 03/17/2025 6:12 AM EDT [facility] CO2, Plasma 28 22 - 29 mmol/L 03/17/2025 6:12 AM EDT [facility] Anion Gap 9 6 - 16 mmol/L 03/17/2025 6:12 AM EDT [facility] Total Calcium, Plasma 8.7(L) 8.9 - 10.2 mg/dL 03/17/2025 6:12 AM EDT [facility] eGFRcr 57.8 mL/min/1.7 3m*2 03/17/2025 6:12 AM EDT [facility] Comment:Reported eGFRcr in m L/min/1.73m2 is based the CKD-EPI 2020 equation that does not use a race coefficient. Blood Venous blood specimen / Unknown Venipuncture / Unknown 03/17/2025 5:29 AM EDT 03/17/2025 5:40 AM EDT us Gt De La Paz MD LAB BLOOD ORDERABLES Final Res ult [facility] [address] [place] [address] * (ABNORMAL) CBC W/O Differential (03/17/2025 5:29 AM EDT) [facility] Signature WBC Count 7.19 3.70 - 10.30 10*3/uL LAB HEMATOLOGY METHOD 03/17/2025 5:52 AM EDT [facility] RBC Count 4.43(L) 4.60 - 6.10 10*6/uL LAB HEMATOLOGY METHOD 03/17/2025 5:52 AM EDT [facility] HGB 11.9(L) 13.7 - 17.5 g/dL LAB HEMATOLOGY METHOD 03/17/2025 5:52 AM EDT [facility] HCT 39.1(L) 40.0 - 51.0 % LAB HEMATOLOGY METHOD 03/17/2025 5:52 AM EDT [facility] Platelet Count 188 155 - 369 10*3/uL LAB HEMATOLOGY METHOD 03/17/2025 5:52 AM EDT [facility] MCV 88 79 - 98 fL LAB HEMATOLOGY METHOD 03/17/2025 5:52 AM EDT [facility] MCH 26.9 26.0 - 32.0 pg LAB HEMATOLOGY METHOD 03/17/2025 5:52 AM EDT [facility] MCHC 30.4(L) 30.7 - 35.5 g/dL LAB HEMATOLOGY METHOD 03/17/2025 5:52 AM EDT [facility] RDW 16.7(H) 11.5 - 14.5 % LAB HEMATOLOGY METHOD 03/17/2025 5:52 AM EDT [facility] MPV 10.1 8.8 - 12.5 fL LAB HEMATOLOGY METHOD 03/17/2025 5:52 AM EDT [facility] nRBC 0.0 <=0.0 per 100 WBCs LAB HEMATOLOGY METHOD 03/17/2025 5:52 AM EDT [facility] Blood Venous blood specimen / Unknown Venipuncture / Unknown 03/17/2025 5:29 AM EDT 03/17/2025 5:44 AM EDT us Gt De La Paz MD LAB BLOOD ORDERABLES Final Res ult [facility] [address] [place] [address] * (ABNORMAL) Blood gas panel, venous (03/17/2025 5:29 AM EDT) pH, Venous 7.35 7.32 - 7.43 LAB HEMATOLOGY METHOD 03/17/2025 5:39 AM EDT [facility] pCO2, Venous 59(H) 40 - 55 mmHg LAB HEMATOLOGY METHOD 03/17/2025 5:39 AM EDT [facility] pO2, Venous 71(H) 25 - 40 mmHg LAB HEMATOLOGY METHOD 03/17/2025 5:39 AM EDT [facility] SO2, Measured, Venous 95(H) 65 - 80 % LAB HEMATOLOGY METHOD 03/17/2025 5:39 AM EDT [facility] Base Excess, Venous 5.5(H) -2.0 - 3.0 mmol/L LAB HEMATOLOGY METHOD 03/17/2025 5:39 AM EDT [facility] Bicarbonate, Calculated, Venous 33(H) 22 - 26 mmol/L LAB HEMATOLOGY METHOD 03/17/2025 5:39 AM EDT [facility] Hematocrit, Whole Blood 37.2(L) 40.0 - 51.0 % LAB HEMATOLOGY METHOD 03/17/2025 5:39 AM EDT [facility] Sodium, Whole Blood 139 136 - 145 mmol/L LAB HEMATOLOGY METHOD 03/17/2025 5:39 AM EDT [facility] Potassium, Whole Blood 4.6 3.6 - 4.9 mmol/L LAB HEMATOLOGY METHOD 03/17/2025 5:39 AM EDT [facility] Chloride, Whole Blood 103 97 - 107 mmol/L LAB HEMATOLOGY METHOD 03/17/2025 5:39 AM EDT [facility] Glucose, Whole Blood 88 74 - 99 mg/dL LAB HEMATOLOGY METHOD 03/17/2025 5:39 AM EDT [facility] Lactate, Venous, Whole Blood 0.8 0.5 - 2.2 mmol/L LAB HEMATOLOGY METHOD 03/17/2025 5:39 AM EDT [facility] Ionized Calcium, Whole Blood 4.6 4.6 - 5.1 mg/dL LAB HEMATOLOGY METHOD 03/17/2025 5:39 AM EDT [facility] Blood Venous blood specimen / Unknown Venipuncture / Unknown 03/17/2025 5:29 AM EDT 03/17/2025 5:37 AM EDT Mariah Mcgowan MD LAB BLOOD ORDERABLES Final Result [facility] [address] [place] [address] * POCT glucose meter (03/16/2025 7:58 PM EDT) [facility] POCT Glucose 97 74 - 99 mg/dL 03/16/2025 8:00 PM EDT [facility] Comment:Accuracy of a glucos e result obtained from a capillary whole blood specimen relies upon adequate, non-compromised capillary blood flow. If the capillary glucose result is not consistent with the patient's clinical signs and symptoms, glucose testing should be repeated with either an arterial or venous sample on the glucometer or sent to the main labortory for testing. Comment 03/16/2025 8:00 PM EDT [facility] Manager Hardware ID [email or web address] 03/16/2025 8:00 PM EDT [facility] LAB Device ID [id number] 03/16/2025 8:00 PM EDT [facility] Specimen Type POC Capillary 03/16/2025 8:00 PM EDT [facility] Blood Capillary blood specimen / Unknown 03/16/2025 7:58 PM EDT 03/16/2025 8:00 PM EDT Bernardo Chavez MD LAB POINT OF CARE TE ST DOCKED DEVICE UNSOLICITED RESULTS Final Result Performing Organization Address City/[facility]/ZIP Co de Phone Number [facility] [address] [place] [address] * (ABNORMAL) POCT glucose meter (03/16/2025 5:50 PM EDT) [facility] POCT Glucose 107(H) 74 - 99 mg/dL 03/16/2025 5:51 PM EDT [facility] Comment:Accuracy of a glucos e result obtained from a capillary whole blood specimen relies upon adequate, non-compromised capillary blood flow. If the capillary glucose result is not consistent with the patient's clinical signs and symptoms, glucose testing should be repeated with either an arterial or venous sample on the glucometer or sent to the main labortory for testing. Comment 03/16/2025 5:51 PM EDT [facility] Manager Hardware ID Constance Schrader 025 5:51 PM EDT [facility] LAB Device ID [id number] 03/16/2025 5:51 PM EDT [facility] Specimen Type POC Capillary 03/16/2025 5:51 PM EDT [facility] Blood Capillary blood specimen / Unknown 03/16/2025 5:50 PM EDT 03/16/2025 5:51 PM EDT us Bernardo Chavez MD LAB POINT OF CARE TE ST DOCKED DEVICE UNSOLICITED RESULTS Final Result Performing Organization Address City/[facility] Phone Number [facility] [address] [place] [address] * (ABNORMAL) POCT glucose meter (03/16/2025 11:42 AM EDT) [facility] POCT Glucose 128(H) 74 - 99 mg/dL 03/16/2025 11:44 AM EDT [facility] Comment:Accuracy of a glucos e result obtained from a capillary whole blood specimen relies upon adequate, non-compromised capillary blood flow. If the capillary glucose result is not consistent with the patient's clinical signs and symptoms, glucose testing should be repeated with either an arterial or venous sample on the glucometer or sent to the main labortory for testing. Comment 03/16/2025 11:44 AM EDT [facility] Manager Hardware ID Constance Schrader 025 11:44 AM EDT [facility] Device ID [id number] 03/16/2025 11:44 AM EDT [facility] Specimen Type POC Capillary 03/16/2025 11:44 AM EDT [facility] Blood Capillary blood specimen / Unknown 03/16/2025 11:42 AM EDT 03/16/2025 11:44 AM EDT us Bernardo Chavez MD LAB POINT OF CARE TE ST DOCKED DEVICE UNSOLICITED RESULTS Final Result [facility] [address] [place] [address] * (ABNORMAL) POCT glucose meter (03/16/2025 8:01 AM EDT) [facility] POCT Glucose 103(H) 74 - 99 mg/dL 03/16/2025 8:02 AM EDT [facility] Comment:Accuracy of a glucos e result obtained from a capillary whole blood specimen relies upon adequate, non-compromised capillary blood flow. If the capillary glucose result is not consistent with the patient's clinical signs and symptoms, glucose testing should be repeated with either an arterial or venous sample on the glucometer or sent to the main labortory for testing. Comment 03/16/2025 8:02 AM EDT [facility] Manager Hardware ID Constance Schrader 025 8:02 AM EDT [facility] LAB Device ID [id number] 03/16/2025 8:02 AM EDT [facility] Specimen Type POC Capillary 03/16/2025 8:02 AM EDT [facility] Blood Capillary blood specimen / Unknown 03/16/2025 8:01 AM EDT 03/16/2025 8:02 AM EDT Bernardo Chavez MD LAB POINT OF CARE TE ST DOCKED DEVICE UNSOLICITED RESULTS Final Result [facility] [address] [place] [address] * (ABNORMAL) Basic metabolic panel (03/16/2025 6:07 AM EDT) [facility] Glucose, Plasma 92 74 - 99 mg/dL 03/16/2025 6:51 AM EDT [facility] BUN, Plasma 25(H) 8 - 23 mg/dL 03/16/2025 6:51 AM EDT [facility] Creatinine, Plasma 1.49(H) 0.70 - 1.20 mg/dL 03/16/2025 6:51 AM EDT [facility] BUN/Creatinine Ratio 17 03/16/2025 6:51 AM EDT [facility] Sodium, Plasma 141 136 - 145 mmol/L 03/16/2025 6:51 AM EDT [facility] Potassium, Plasma 4.6 3.6 - 4.9 mmol/L 03/16/2025 6:51 AM EDT [facility] Chloride, Plasma 103 97 - 107 mmol/L 03/16/2025 6:51 AM EDT [facility] CO2, Plasma 29 22 - 29 mmol/L 03/16/2025 6:51 AM EDT [facility] Anion Gap 9 6 - 16 mmol/L 03/16/2025 6:51 AM EDT [facility] Total Calcium, Plasma 8.9 8.9 - 10.2 mg/dL 03/16/2025 6:51 AM EDT [facility] eGFRcr 49.6 mL/min/1.7 3m*2 03/16/2025 6:51 AM EDT [facility] Comment:Reported eGFRcr in m L/min/1.73m2 is based the CKD-EPI 2020 equation that does not use a race coefficient. Blood Venous blood specimen / Unknown Venipuncture / Unknown 03/16/2025 6:07 AM EDT 03/16/2025 6:22 AM EDT us Gt De La Paz MD LAB BLOOD ORDERABLES Final Res ult [facility] [address] [place] [address] * (ABNORMAL) CBC W/O Differential (03/16/2025 6:07 AM EDT) WBC Count 8.70 3.70 - 10.30 10*3/uL LAB HEMATOLOGY METHOD 03/16/2025 6:36 AM EDT [facility] RBC Count 4.52(L) 4.60 - 6.10 10*6/uL LAB HEMATOLOGY METHOD 03/16/2025 6:36 AM EDT [facility] HGB 12.5(L) 13.7 - 17.5 g/dL LAB HEMATOLOGY METHOD 03/16/2025 6:36 AM EDT [facility] HCT 39.6(L) 40.0 - 51.0 % LAB HEMATOLOGY METHOD 03/16/2025 6:36 AM EDT [facility] Platelet Count 199 155 - 369 10*3/uL LAB HEMATOLOGY METHOD 03/16/2025 6:36 AM EDT [facility] MCV 88 79 - 98 fL LAB HEMATOLOGY METHOD 03/16/2025 6:36 AM EDT [facility] MCH 27.7 26.0 - 32.0 pg LAB HEMATOLOGY METHOD 03/16/2025 6:36 AM EDT [facility] MCHC 31.6 30.7 - 35.5 g/dL LAB HEMATOLOGY METHOD 03/16/2025 6:36 AM EDT [facility] RDW 17.0(H) 11.5 - 14.5 % LAB HEMATOLOGY METHOD 03/16/2025 6:36 AM EDT [facility] MPV 9.3 8.8 - 12.5 fL LAB HEMATOLOGY METHOD 03/16/2025 6:36 AM EDT [facility] nRBC 0.0 <=0.0 per 100 WBCs LAB HEMATOLOGY METHOD 03/16/2025 6:36 AM EDT [facility] Blood Venous blood specimen / Unknown Venipuncture / Unknown 03/16/2025 6:07 AM EDT 03/16/2025 6:26 AM EDT us Gt De La Paz MD LAB BLOOD ORDERABLES Final Res ult [facility] [address] [place] [address] * (ABNORMAL) Blood gas panel, venous (03/16/2025 6:07 AM EDT) pH, Venous 7.33 7.32 - 7.43 LAB HEMATOLOGY METHOD 03/16/2025 6:24 AM EDT [facility] pCO2, Venous 61(HH) 40 - 55 mmHg LAB HEMATOLOGY METHOD 03/16/2025 6:24 AM EDT [facility] pO2, Venous 101(H) 25 - 40 mmHg LAB HEMATOLOGY METHOD 03/16/2025 6:24 AM EDT [facility] SO2, Measured, Venous 99(H) 65 - 80 % LAB HEMATOLOGY METHOD 03/16/2025 6:24 AM EDT [facility] Base Excess, Venous 5.0(H) -2.0 - 3.0 mmol/L LAB HEMATOLOGY METHOD 03/16/2025 6:24 AM EDT [facility] Bicarbonate, Calculated, Venous 33(H) 22 - 26 mmol/L LAB HEMATOLOGY METHOD 03/16/2025 6:24 AM EDT [facility] Hematocrit, Whole Blood 37.8(L) 40.0 - 51.0 % LAB HEMATOLOGY METHOD 03/16/2025 6:24 AM EDT [facility] Sodium, Whole Blood 142 136 - 145 mmol/L LAB HEMATOLOGY METHOD 03/16/2025 6:24 AM EDT [facility] Potassium, Whole Blood 4.4 3.6 - 4.9 mmol/L LAB HEMATOLOGY METHOD 03/16/2025 6:24 AM EDT [facility] Chloride, Whole Blood 105 97 - 107 mmol/L LAB HEMATOLOGY METHOD 03/16/2025 6:24 AM EDT [facility] Glucose, Whole Blood 91 74 - 99 mg/dL LAB HEMATOLOGY METHOD 03/16/2025 6:24 AM EDT [facility] Lactate, Venous, Whole Blood 0.6 0.5 - 2.2 mmol/L LAB HEMATOLOGY METHOD 03/16/2025 6:24 AM EDT [facility] Ionized Calcium, Whole Blood 4.7 4.6 - 5.1 mg/dL LAB HEMATOLOGY METHOD 03/16/2025 6:24 AM EDT [facility] Blood Venous blood specimen / Unknown Venipuncture / Unknown 03/16/2025 6:07 AM EDT 03/16/2025 6:21 AM EDT Mariah Mcgowan MD LAB BLOOD ORDERABLES Final Result [facility] [address] [place] [address] * POCT glucose meter (03/16/2025 12:50 AM EDT) [facility] POCT Glucose 89 74 - 99 mg/dL 03/16/2025 12:53 AM EDT [facility] Comment:Accuracy of a glucos e result obtained from a capillary whole blood specimen relies upon adequate, non-compromised capillary blood flow. If the capillary glucose result is not consistent with the patient's clinical signs and symptoms, glucose testing should be repeated with either an arterial or venous sample on the glucometer or sent to the main labortory for testing. Comment 03/16/2025 12:53 AM EDT [facility]ALTH[facility] LAB Manager Hardware ID Arlen Jackson 025 12:53 AM EDT [facility]ALTH[facility]ARE LAB Device ID [id number] 03/16/2025 12:53 AM EDT [facility] Specimen Type POC Capillary 03/16/2025 12:53 AM EDT [facility] Blood Capillary blood specimen / Unknown 03/16/2025 12:50 AM EDT 03/16/2025 12:53 AM EDT us Delfino Aceves MD LAB POINT OF CARE TE ST DOCKED DEVICE UNSOLICITED RESULTS Final Result [facility] [address] [place] [address] * (ABNORMAL) POCT glucose meter (03/15/2025 11:33 PM EDT) [facility] POCT Glucose 109(H) 74 - 99 mg/dL 03/15/2025 11:35 PM EDT [facility] Comment:Accuracy of a glucos e result obtained from a capillary whole blood specimen relies upon adequate, non-compromised capillary blood flow. If the capillary glucose result is not consistent with the patient's clinical signs and symptoms, glucose testing should be repeated with either an arterial or venous sample on the glucometer or sent to the main labortory for testing. Comment 03/15/2025 11:35 PM EDT [facility] LAB Manager Hardware ID Casie Street 03/15/2025 11:35 PM EDT [facility]ALTH[facility]ARE LAB Device ID [id number] 03/15/2025 11:35 PM EDT [facility] Specimen Type POC Capillary 03/15/2025 11:35 PM EDT [facility] Blood Capillary blood specimen / Unknown 03/15/2025 11:33 PM EDT 03/15/2025 11:35 PM EDT us Delfino Aceves MD LAB POINT OF CARE TE ST DOCKED DEVICE UNSOLICITED RESULTS Final Result Performing Organization Address [facility] Co de Phone Number [facility] [address] [place] [address] * (ABNORMAL) POCT glucose meter (03/15/2025 8:33 PM EDT) [facility] POCT Glucose 107(H) 74 - 99 mg/dL 03/15/2025 8:34 PM EDT [facility] Comment:Accuracy of a glucos e result obtained from a capillary whole blood specimen relies upon adequate, non-compromised capillary blood flow. If the capillary glucose result is not consistent with the patient's clinical signs and symptoms, glucose testing should be repeated with either an arterial or venous sample on the glucometer or sent to the main labortory for testing. Comment 03/15/2025 8:34 PM EDT [facility]ALTH[facility]ARE LAB Manager Hardware ID Street Casie 03/15/2025 8:34 PM EDT [facility] LAB Device ID [id number] 03/15/2025 8:34 PM EDT [facility] Specimen Type POC Capillary 03/15/2025 8:34 PM EDT [facility] Blood Capillary blood specimen / Unknown 03/15/2025 8:33 PM EDT 03/15/2025 8:34 PM EDT Delfino Aceves MD LAB POINT OF CARE TE ST DOCKED DEVICE UNSOLICITED RESULTS Final Result Performing Organization Address [facility] Co de Phone Number [facility] [address] [place] [address] * POCT glucose meter (03/15/2025 5:58 PM EDT) [facility] POCT Glucose 98 74 - 99 mg/dL 03/15/2025 5:59 PM EDT [facility] Comment:Accuracy of a glucos e result obtained from a capillary whole blood specimen relies upon adequate, non-compromised capillary blood flow. If the capillary glucose result is not consistent with the patient's clinical signs and symptoms, glucose testing should be repeated with either an arterial or venous sample on the glucometer or sent to the main labortory for testing. Comment 03/15/2025 5:59 PM EDT [facility] Manager Hardware ID Shellie Casarez 05/20/2 025 5:59 PM EDT [facility] Device ID [id number] 03/15/2025 5:59 PM EDT [facility] Specimen Type POC Capillary 03/15/2025 5:59 PM EDT [facility] Blood Capillary blood specimen / Unknown 03/15/2025 5:58 PM EDT 03/15/2025 5:59 PM EDT Delfino Aceves MD LAB POINT OF CARE TE ST DOCKED DEVICE UNSOLICITED RESULTS Final Result Performing Organization Address City/[facility] Co de Phone Number [facility] [address] [place] [address] * (ABNORMAL) POCT glucose meter (03/15/2025 1:06 PM EDT) [facility] POCT Glucose 101(H) 74 - 99 mg/dL 03/15/2025 1:07 PM EDT [facility] Comment:Accuracy of a glucos e result obtained from a capillary whole blood specimen relies upon adequate, non-compromised capillary blood flow. If the capillary glucose result is not consistent with the patient's clinical signs and symptoms, glucose testing should be repeated with either an arterial or venous sample on the glucometer or sent to the main labortory for testing. Comment 03/15/2025 1:07 PM EDT [facility] Manager Hardware ID Shellie Casarez 025 1:07 PM EDT [facility]ALTH[facility]ARE LAB Device ID [id number] 03/15/2025 1:07 PM EDT [facility] Specimen Type POC Capillary 03/15/2025 1:07 PM EDT [facility] Blood Capillary blood specimen / Unknown 03/15/2025 1:06 PM EDT 03/15/2025 1:07 PM EDT us Delfino Aceves MD LAB POINT OF CARE TE ST DOCKED DEVICE UNSOLICITED RESULTS Final Result Performing Organization Address City/[facility] Co de Phone Number [facility] [address] [place] [address] * POCT glucose meter (03/15/2025 12:11 PM EDT) [facility] POCT Glucose 92 74 - 99 mg/dL 03/15/2025 12:12 PM EDT [facility] Comment:Accuracy of a glucos e result obtained from a capillary whole blood specimen relies upon adequate, non-compromised capillary blood flow. If the capillary glucose result is not consistent with the patient's clinical signs and symptoms, glucose testing should be repeated with either an arterial or venous sample on the glucometer or sent to the main labortory for testing. Comment 03/15/2025 12:12 PM EDT [facility] Manager Hardware ID Shellie Casarez 025 12:12 PM EDT [facility] Device ID [id number] 03/15/2025 12:12 PM EDT [facility] Specimen Type POC Capillary 03/15/2025 12:12 PM EDT [facility] Blood Capillary blood specimen / Unknown 03/15/2025 12:11 PM EDT 03/15/2025 12:12 PM EDT Delfino Aceves MD LAB POINT OF CARE TE ST DOCKED DEVICE UNSOLICITED RESULTS Final Result Performing Organization Address City/State/[facility] Co de Phone Number [facility] [address] [place] [address] * (ABNORMAL) POCT glucose meter (03/15/2025 6:29 AM EDT) [facility] POCT Glucose 111(H) 74 - 99 mg/dL 03/15/2025 6:31 AM EDT [facility] Comment:Accuracy of a glucos e result obtained from a capillary whole blood specimen relies upon adequate, non-compromised capillary blood flow. If the capillary glucose result is not consistent with the patient's clinical signs and symptoms, glucose testing should be repeated with either an arterial or venous sample on the glucometer or sent to the main labortory for testing. Comment 03/15/2025 6:31 AM EDT [facility] Manager Hardware ID Heraclio Gomez 03/15/2025 6:31 AM EDT [facility] Device ID [id number] 03/15/2025 6:31 AM EDT [facility] Specimen Type POC Capillary 03/15/2025 6:31 AM EDT [facility] Blood Capillary blood specimen / Unknown 03/15/2025 6:29 AM EDT 03/15/2025 6:31 AM EDT us Delfino Aceves MD LAB POINT OF CARE TE ST DOCKED DEVICE UNSOLICITED RESULTS Final Result [facility] [address] [place] [address] * (ABNORMAL) Basic metabolic panel (03/15/2025 3:27 AM EDT) Glucose, Plasma 89 74 - 99 mg/dL 03/15/2025 4:08 AM EDT [facility] BUN, Plasma 35(H) 8 - 23 mg/dL 03/15/2025 4:08 AM EDT [facility] Creatinine, Plasma 1.75(H) 0.70 - 1.20 mg/dL 03/15/2025 4:08 AM EDT [facility] BUN/Creatinine Ratio 03/15/2025 4:08 AM EDT [facility] Sodium, Plasma 141 136 - 145 mmol/L 03/15/2025 4:08 AM EDT [facility] Potassium, Plasma 4.6 3.6 - 4.9 mmol/L 03/15/2025 4:08 AM EDT [facility] Chloride, Plasma 102 97 - 107 mmol/L 03/15/2025 4:08 AM EDT [facility] CO2, Plasma 28 22 - 29 mmol/L 03/15/2025 4:08 AM EDT [facility] Anion Gap 11 6 - 16 mmol/L 03/15/2025 4:08 AM EDT [facility] Total Calcium, Plasma 9.1 8.9 - 10.2 mg/dL 03/15/2025 4:08 AM EDT [facility] eGFRcr 40.9 mL/min/1.7 3m*2 03/15/2025 4:08 AM EDT [facility] Comment:Reported eGFRcr in m L/min/1.73m2 is based the CKD-EPI 2020 equation that does not use a race coefficient. Blood Venous blood specimen / Unknown Venipuncture / Unknown 03/15/2025 3:27 AM EDT 03/15/2025 3:37 AM EDT us Gt De La Paz MD LAB BLOOD ORDERABLES Final Res ult [facility] [address] [place] [address] * (ABNORMAL) CBC W/O Differential (03/15/2025 3:27 AM EDT) WBC Count 8.63 3.70 - 10.30 10*3/uL LAB HEMATOLOGY METHOD 03/15/2025 3:45 AM EDT [facility] RBC Count 4.59(L) 4.60 - 6.10 10*6/uL LAB HEMATOLOGY METHOD 03/15/2025 3:45 AM EDT [facility] HGB 12.8(L) 13.7 - 17.5 g/dL LAB HEMATOLOGY METHOD 03/15/2025 3:45 AM EDT [facility] HCT 40.0 40.0 - 51.0 % LAB HEMATOLOGY METHOD 03/15/2025 3:45 AM EDT [facility] Platelet Count 207 155 - 369 10*3/uL LAB HEMATOLOGY METHOD 03/15/2025 3:45 AM EDT [facility] MCV 87 79 - 98 fL LAB HEMATOLOGY METHOD 03/15/2025 3:45 AM EDT [facility] MCH 27.9 26.0 - 32.0 pg LAB HEMATOLOGY METHOD 03/15/2025 3:45 AM EDT [facility] MCHC 32.0 30.7 - 35.5 g/dL LAB HEMATOLOGY METHOD 03/15/2025 3:45 AM EDT [facility] RDW 17.2(H) 11.5 - 14.5 % LAB HEMATOLOGY METHOD 03/15/2025 3:45 AM EDT [facility] MPV 9.6 8.8 - 12.5 fL LAB HEMATOLOGY METHOD 03/15/2025 3:45 AM EDT [facility] nRBC 0.0 <=0.0 per 100 WBCs LAB HEMATOLOGY METHOD 03/15/2025 3:45 AM EDT [facility] Blood Venous blood specimen / Unknown Venipuncture / Unknown 03/15/2025 3:27 AM EDT 03/15/2025 3:37 AM EDT us Gt De La Paz MD LAB BLOOD ORDERABLES Final Res ult [facility] [address] [place] [address] * (ABNORMAL) Blood gas panel, venous (03/15/2025 3:27 AM EDT) pH, Venous 7.37 7.32 - 7.43 LAB HEMATOLOGY METHOD 03/15/2025 3:39 AM EDT [facility] pCO2, Venous 57(H) 40 - 55 mmHg LAB HEMATOLOGY METHOD 03/15/2025 3:39 AM EDT [facility] pO2, Venous 63(H) 25 - 40 mmHg LAB HEMATOLOGY METHOD 03/15/2025 3:39 AM EDT [facility] SO2, Measured, Venous 93(H) 65 - 80 % LAB HEMATOLOGY METHOD 03/15/2025 3:39 AM EDT [facility] Base Excess, Venous 5.9(H) -2.0 - 3.0 mmol/L LAB HEMATOLOGY METHOD 03/15/2025 3:39 AM EDT [facility] Bicarbonate, Calculated, Venous 33(H) 22 - 26 mmol/L LAB HEMATOLOGY METHOD 03/15/2025 3:39 AM EDT [facility] Hematocrit, Whole Blood 37.5(L) 40.0 - 51.0 % LAB HEMATOLOGY METHOD 03/15/2025 3:39 AM EDT [facility] Sodium, Whole Blood 141 136 - 145 mmol/L LAB HEMATOLOGY METHOD 03/15/2025 3:39 AM EDT [facility] Potassium, Whole Blood 4.4 3.6 - 4.9 mmol/L LAB HEMATOLOGY METHOD 03/15/2025 3:39 AM EDT [facility] Chloride, Whole Blood 102 97 - 107 mmol/L LAB HEMATOLOGY METHOD 03/15/2025 3:39 AM EDT [facility] Glucose, Whole Blood 88 74 - 99 mg/dL LAB HEMATOLOGY METHOD 03/15/2025 3:39 AM EDT [facility] Lactate, Venous, Whole Blood 0.9 0.5 - 2.2 mmol/L LAB HEMATOLOGY METHOD 03/15/2025 3:39 AM EDT [facility] Ionized Calcium, Whole Blood 4.6 4.6 - 5.1 mg/dL LAB HEMATOLOGY METHOD 03/15/2025 3:39 AM EDT [facility] Blood Venous blood specimen / Unknown Venipuncture / Unknown 03/15/2025 3:27 AM EDT 03/15/2025 3:37 AM EDT Mariah Mcgowan MD LAB BLOOD ORDERABLES Final Result [facility] [address] [place] [address] * (ABNORMAL) Blood gas panel, venous (03/14/2025 10:21 PM EDT) pH, Venous 7.36 7.32 - 7.43 LAB HEMATOLOGY METHOD 03/14/2025 10:33 PM EDT [facility] pCO2, Venous 60(HH) 40 - 55 mmHg LAB HEMATOLOGY METHOD 03/14/2025 10:33 PM EDT [facility] pO2, Venous 49(H) 25 - 40 mmHg LAB HEMATOLOGY METHOD 03/14/2025 10:33 PM EDT [facility] SO2, Measured, Venous 81(H) 65 - 80 % LAB HEMATOLOGY METHOD 03/14/2025 10:33 PM EDT [facility] Base Excess, Venous 6.2(H) -2.0 - 3.0 mmol/L LAB HEMATOLOGY METHOD 03/14/2025 10:33 PM EDT [facility] Bicarbonate, Calculated, Venous 33(H) 22 - 26 mmol/L LAB HEMATOLOGY METHOD 03/14/2025 10:33 PM EDT [facility] Hematocrit, Whole Blood 37.6(L) 40.0 - 51.0 % LAB HEMATOLOGY METHOD 03/14/2025 10:33 PM EDT [facility] Sodium, Whole Blood 140 136 - 145 mmol/L LAB HEMATOLOGY METHOD 03/14/2025 10:33 PM EDT [facility] Potassium, Whole Blood 5.0(H) 3.6 - 4.9 mmol/L LAB HEMATOLOGY METHOD 03/14/2025 10:33 PM EDT [facility] Chloride, Whole Blood 102 97 - 107 mmol/L LAB HEMATOLOGY METHOD 03/14/2025 10:33 PM EDT [facility] Glucose, Whole Blood 94 74 - 99 mg/dL LAB HEMATOLOGY METHOD 03/14/2025 10:33 PM EDT [facility] Lactate, Venous, Whole Blood 0.8 0.5 - 2.2 mmol/L LAB HEMATOLOGY METHOD 03/14/2025 10:33 PM EDT [facility] Ionized Calcium, Whole Blood 4.6 4.6 - 5.1 mg/dL LAB HEMATOLOGY METHOD 03/14/2025 10:33 PM EDT [facility] Blood Venous blood specimen / Unknown Venipuncture / Unknown 03/14/2025 10:21 PM EDT 03/14/2025 10:31 PM EDT us Delfino Aceves MD LAB BLOOD ORDERABLES Final Resul t [facility] [address] [place] [address] * POCT glucose meter (03/14/2025 5:01 PM EDT) POCT Glucose 96 74 - 99 mg/dL 03/14/2025 5:03 PM [facility]T [facility] Comment:Accuracy of a glucos e result obtained from a capillary whole blood specimen relies upon adequate, non-compromised capillary blood flow. If the capillary glucose result is not consistent with the patient's clinical signs and symptoms, glucose testing should be repeated with either an arterial or venous sample on the glucometer or sent to the main labortory for testing. Comment 03/14/2025 5:03 PM EDT [facility] Manager Hardware ID Lewis Alejandre 025 5:03 PM EDT [facility] Device ID [id number] 03/14/2025 5:03 PM EDT [facility] Specimen Type POC Capillary 03/14/2025 5:03 PM EDT [facility] Blood Capillary blood specimen / Unknown 03/14/2025 5:01 PM EDT 03/14/2025 5:03 PM EDT us Delfino Aceves MD LAB POINT OF CARE TE ST DOCKED DEVICE UNSOLICITED RESULTS Final Result [facility] [address] [place] [id number] * (ABNORMAL) Blood gas panel, venous (03/14/2025 2:19 PM EDT) pH, Venous 7.36 7.32 - 7.43 LAB HEMATOLOGY METHOD 03/14/2025 2:31 PM EDT [facility] pCO2, Venous 56(H) 40 - 55 mmHg LAB HEMATOLOGY METHOD 03/14/2025 2:31 PM EDT [facility] pO2, Venous 49(H) 25 - 40 mmHg LAB HEMATOLOGY METHOD 03/14/2025 2:31 PM EDT [facility] SO2, Measured, Venous 82(H) 65 - 80 % LAB HEMATOLOGY METHOD 03/14/2025 2:31 PM EDT [facility] Base Excess, Venous 4.8(H) -2.0 - 3.0 mmol/L LAB HEMATOLOGY METHOD 03/14/2025 2:31 PM EDT [facility] Bicarbonate, Calculated, Venous 32(H) 22 - 26 mmol/L LAB HEMATOLOGY METHOD 03/14/2025 2:31 PM EDT [facility] Hematocrit, Whole Blood 36.3(L) 40.0 - 51.0 % LAB HEMATOLOGY METHOD 03/14/2025 2:31 PM EDT [facility] Sodium, Whole Blood 138 136 - 145 mmol/L LAB HEMATOLOGY METHOD 03/14/2025 2:31 PM EDT [facility] Potassium, Whole Blood 4.5 3.6 - 4.9 mmol/L LAB HEMATOLOGY METHOD 03/14/2025 2:31 PM EDT [facility] Chloride, Whole Blood 100 97 - 107 mmol/L LAB HEMATOLOGY METHOD 03/14/2025 2:31 PM EDT [facility] Glucose, Whole Blood 85 74 - 99 mg/dL LAB HEMATOLOGY METHOD 03/14/2025 2:31 PM EDT [facility] Lactate, Venous, Whole Blood 1.1 0.5 - 2.2 mmol/L LAB HEMATOLOGY METHOD 03/14/2025 2:31 PM EDT [facility] Ionized Calcium, Whole Blood 4.6 4.6 - 5.1 mg/dL LAB HEMATOLOGY METHOD 03/14/2025 2:31 PM EDT [facility] Blood Venous blood specimen / Unknown Venipuncture / Unknown 03/14/2025 2:19 PM EDT 03/14/2025 2:29 PM EDT us Delfino Aceves MD LAB BLOOD ORDERABLES Final Resul t [facility] [address] [place] [address] * EEG (03/14/2025 1:31 PM EDT) Anatomical Region Laterality Modality EEG Narrative 03/14/2025 2:33 PM EDT Table formatting from the original result was not included. Electroencephalogram Report Patient: Last Santos : 1950 SEX: male Referring Provider: Mariah Mcgowan MD EEG Reading Physician: Brian Valle Study Type: Routine Begin Date: 03/14/2025 Begin Time: 1:10 PM End Date: 03/14/2025 End Time: 1:31 PM Total EEG Recording Time: 21 minutes Indication for study: Concern for seizures SEIZURE HISTORY: Concern for seizure Medications: Current Medications[1] Technical Description This study was performed using a 21 channel digital electroencephalographic recording with EKG monitoring. International 10-20 electrode placement was used prior to the application of 25 scalp electrodes. Longitudinal and coronal bipolar montages and ear reference montages were used with usual gain and filter settings. Record Quality: The record is of fair technical quality for purposes of interpretation. CLINICAL AND EEG ANALYSIS State of patient: awake Awake background: 7Hz PDR noted. The awake background at times was obscured by EMG /Glossokinetic artifact Posterior dominant rhythm: 7Hz Voltage: low Organization: poorly sustained Reactivity to eye opening/closure: Present Sleep background: As drowsiness occurred, the posterior dominant rhythm attenuated, slow rolling eye movements appeared and was characterized by alpha attenuation and increased frontocentral theta. No definite sleep structures were obtained. ACTIVATION PROCEDURES: HV: Hyperventilation was deferred PHOTIC STIMULATION: Photic stimulation was deferred A single channel EKG rhythm strip demonstrated no obvious arrhythmia. Reactivity to stimulation: reactive EPILEPTIFORM INTERICTAL ABNORMALITIES No definite potential epileptogenic abnormalities or interictals were noted ICTAL / EVENT DESCRIPTION: Clinical Description: No pushbutton events or seizures noted. Impression This routine video EEG recording demonstrated: Mild slowing of background rhythms, is indicative of a diffuse cerebral dysfunction of non-specific etiology, suggestive of a mild encephalopathy. No definite potential epileptogenic abnormalities, electrographic or clinical seizures. An EEG without epileptiform discharges does not exclude the possibility of epilepsy. If the clinical suspicion of epilepsy remains, consider longer additional EEG recordings. Please clinically correlate above findings. [1] No current facility-administered medications for this visit. No current outpatient medications on file. Facility-Administered Medications Ordered in Other Visits Medication Dose Route Frequency Provider Last Rate Last Admin acetaminophen (Tylenol) tablet 650 mg 650 mg Nasogastric q4h PRN Lay Clark DO amitriptyline (Elavil) tablet 25 mg 25 mg Nasogastric Nightly Gt De La Paz MD 25 mg at 03/13/252138 atorvastatin (Lipitor) tablet 20 mg 20 mg Nasogastric Nightly Gt De La Paz MD 20 mg at 03/13/25 213 cefTRIAXone (Rocephin) 2 g in sodium chloride 0.9% 100 mL IVPB (vial adapter required) 2 g Intravenous q24h Gt De La Paz MD 220 mL/hr at 03/13/25 2240 2 g at 03/13/25 2240 glucose (Glutose) 40 % oral gel 15-30 grams of glucose 15-30 grams of glucose Sublingual q15 min PRN Lay Clark DO Or dextrose 50 % solution 12.5-25 g 12.5-25 g Intravenous q15 min PRN Lay Clrak DO Or glucagon (human recombinant) injection 1 mg 1 mg Intramuscular q15 min PRN Lay Clark DO esomeprazole (NexIUM) packet for suspension 40 mg 40 mg Nasogastric Daily before breakfast Lay Clark DO 40 mg at 03/14/25 0812 gabapentin (Neurontin) capsule 300 mg 300 mg Nasogastric BID Gt De La Paz MD 300 mg at 03/14/25 0812 heparin (porcine) injection 5,000 Units 5,000 Units Subcutaneous q8h Liz العراقي MD 5,000 Units at 03/14/25 0621 insulin regular (HumuLIN R,NovoLIN R) 100 units/mL injection - Correction - Standard Dose 0-5 Units Subcutaneous q6h ARNOLDO Lay Clark DO ipratropium-albuterol (Duo-Neb) 0.5-2.5 mg/3 mL nebulizer solution 3 mL 3 mL Nebulization q6h RT Lay Clark DO 3 mL at 03/14/25 0805 levETIRAcetam (Keppra) tablet 750 mg 750 mg Nasogastric BID Gt De La Paz MD 750 mg at 03/14/25 0812 mupirocin (Bactroban) 2 % ointment 1 Application 1 Application Each Nostril BID Lay Clark DO 1 Application at 03/14/25 0812 oxyCODONE (Roxicodone) immediate release tablet 5 mg 5 mg Nasogastric q6h PRN Delfino Aceves MD polyethylene glycol (Miralax) packet 17 g 17 g Nasogastric Daily Lay Clark DO 17 g at 03/14/25 0812 Mariah Mcgowan MD NEUROLOGY ORDERABLES Final Result * POCT glucose meter (03/14/2025 12:03 PM EDT) [facility] POCT Glucose 90 74 - 99 mg/dL 03/14/2025 12:05 PM EDT [facility] Comment:Accuracy of a glucos e result obtained from a capillary whole blood specimen relies upon adequate, non-compromised capillary blood flow. If the capillary glucose result is not consistent with the patient's clinical signs and symptoms, glucose testing should be repeated with either an arterial or venous sample on the glucometer or sent to the main labortory for testing. Comment 03/14/2025 12:05 PM EDT [facility] Manager Hardware ID Lewis Alejandre Geovanna 025 12:05 PM EDT [facility] Device ID [id number] 03/14/2025 12:05 PM EDT [facility] Specimen Type POC Capillary 03/14/2025 12:05 PM EDT [facility] Blood Capillary blood specimen / Unknown 03/14/2025 12:03 PM EDT 03/14/2025 12:05 PM EDT us Delfino Aceves MD LAB POINT OF CARE TE ST DOCKED DEVICE UNSOLICITED RESULTS Final Result [facility] [address] [place] [address] * [facility], E/M 30-74 MINUTES (03/14/2025 7:18 AM EDT) Narrative Delfino Aceves MD - 03/14/2025 7:18 AM EDT Delfino Aceves MD 03/14/2025 4:55 PM Critical Care Performed by: Delfino Aceves MD Authorized by: Delfino Aceves MD Critical care provider statement: Critical care time (minutes): 35 Critical care time was exclusive of: Separately billable procedures and treating other patients Critical care was time spent personally by me on the following activities: Development of treatment plan with patient or surrogate, evaluation of patient's response to treatment, examination of patient, ordering and performing treatments and interventions, ordering and review of laboratory studies, ordering and review of radiographic studies and ventilator management I assumed subsequent critical care for this patient from a provider in my division, on the same day: no Critical care statement: I saw and evaluated the patient with the resident/ fellow. I discussed the case with the resident/ fellow and agree with the findings and plan as documented. Delfino Aceves MD IN CLINIC/BEDSIDE ORDERABLES Fin al Result * (ABNORMAL) POCT glucose meter (03/14/2025 6:23 AM EDT) [facility] POCT Glucose 103(H) 74 - 99 mg/dL 03/14/2025 6:24 AM EDT [facility] Comment:Accuracy of a glucos e result obtained from a capillary whole blood specimen relies upon adequate, non-compromised capillary blood flow. If the capillary glucose result is not consistent with the patient's clinical signs and symptoms, glucose testing should be repeated with either an arterial or venous sample on the glucometer or sent to the main labortory for testing. Comment 03/14/2025 6:24 AM EDT [facility] Manager Hardware ID Heraclio Gomez 03/14/2025 6:24 AM EDT [facility] Device ID [id number] 03/14/2025 6:24 AM EDT [facility] Specimen Type POC Capillary 03/14/2025 6:24 AM EDT [facility] Blood Capillary blood specimen / Unknown 03/14/2025 6:23 AM EDT 03/14/2025 6:24 AM EDT us Gt De La Paz MD LAB POINT OF CARE TE ST DOCKED DEVICE UNSOLICITED RESULTS Final Result [facility] [address] [place] [id number] * MR Head wo IV Contrast (03/14/2025 1:55 AM EDT) Anatomical Region Laterality Modality Head Magnetic Resonan ce Impressions 03/14/2025 2:34 AM EDT * There is no evidence of intracranial mass, hemorrhage, or acute infarction. * Moderate paranasal sinus disease with layering fluid in the left sphenoid sinus and bilateral mastoid effusions. An acute sinusitis could be considered in the appropriate clinical setting. CRITICAL RESULT: No. COMMUNICATION: Per this written report. Drafted by Martín Ocasio MD on 03/14/2025 2:30 AM Final report signed by Martín Ocasio MD on 03/14/2025 2:34 AM Narrative 03/14/2025 2:34 AM EDT CLINICAL INDICATION: Mental status change, unknown cause TECHNIQUE: Multiplanar multiecho sequences were performed through the brain utilizing T1 and T2 weighting, as well as either axial susceptibility weighted or gradient echo sequences, and axial diffusion weighted images. Imaging was performed without contrast administration. COMPARISON: None. FINDINGS: Diagnostic Quality: Adequate. No midline shift, mass effect, parenchymal hemorrhage, or evidence of acute infarct. No extra-axial fluid collections. Basal cisterns are patent. No hydrocephalus. Vascular Flow Voids: Normal. Paranasal Sinuses and Mastoid Air Cells: Undulating nasal septum. Opacification of the middle ears. Near complete opacification of the left sphenoid sinus. Trace mucosal thickening of the right sphenoid sinus. Trace mucosal thickening of the maxillary sinuses. Mild mucosal thickening of the ethmoid air cells. Orbits: Bilateral lens implants. Otherwise orbits and globes are unremarkable in appearance. Extracranial Findings: None. Craniocervical Junction and Skull Base: No tonsillar ectopia or mass is present. Procedure Note Martín Ocasio MD - 03/14/2025 CLINICAL INDICATION: Mental status change, unknown cause TECHNIQUE: Multiplanar multiecho sequences were performed through the brain utilizingT1 and T2 weighting, as well as either axial susceptibility weighted orgradient echo sequences, and axial diffusion weighted images. Imaging wasperformed without contrast administration. COMPARISON: None. FINDINGS: Diagnostic Quality: Adequate. No midline shift, mass effect, parenchymal hemorrhage, or evidence ofacute infarct. No extra-axial fluid collections. Basal cisterns are patent. Nohydrocephalus. Vascular Flow Voids: Normal. Paranasal Sinuses and Mastoid Air Cells: Undulating nasal septum.Opacification of the middle ears. Near complete opacification of the leftsphenoid sinus. Trace mucosal thickening of the right sphenoid sinus.Trace mucosal thickening of the maxillary sinuses. Mild mucosal thickeningof the ethmoid air cells. Orbits: Bilateral lens implants. Otherwise orbits and globes areunremarkable in appearance. Extracranial Findings: None. Craniocervical Junction and Skull Base: No tonsillar ectopia or mass ispresent. IMPRESSION: *There is no evidence of intracranial mass, hemorrhage, or acuteinfarction. *Moderate paranasal sinus disease with layering fluid in the leftsphenoid sinus and bilateral mastoid effusions. An acute sinusitis couldbe considered in the appropriate clinical setting. CRITICAL RESULT: No. COMMUNICATION: Per this written report. Drafted by Martín Ocasio MD on 03/14/2025 2:30 AM Final report signed by Martín Ocasio MD on 03/14/2025 2:34 AM Mariah Mcgowan MD IM MRI PROCEDURES Final R esult * (ABNORMAL) Basic metabolic panel (03/14/2025 12:34 AM EDT) Glucose, Plasma 108(H) 74 - 99 mg/dL 03/14/2025 1:11 AM EDT [facility] BUN, Plasma 40(H) 8 - 23 mg/dL 03/14/2025 1:11 AM EDT [facility] Creatinine, Plasma 2.06(H) 0.70 - 1.20 mg/dL 03/14/2025 1:11 AM EDT [facility] BUN/Creatinine Ratio 03/14/2025 1:11 AM EDT [facility] Sodium, Plasma 136 136 - 145 mmol/L 03/14/2025 1:11 AM EDT [facility] Potassium, Plasma 4.9 3.6 - 4.9 mmol/L 03/14/2025 1:11 AM EDT [facility] Chloride, Plasma 98 97 - 107 mmol/L 03/14/2025 1:11 AM EDT [facility] CO2, Plasma 25 22 - 29 mmol/L 03/14/2025 1:11 AM EDT [facility] Anion Gap 13 6 - 16 mmol/L 03/14/2025 1:11 AM EDT [facility] Total Calcium, Plasma 8.9 8.9 - 10.2 mg/dL 03/14/2025 1:11 AM EDT [facility] eGFRcr 33.6 mL/min/1.7 3m*2 03/14/2025 1:11 AM EDT [facility] Comment:Reported eGFRcr in m L/min/1.73m2 is based the CKD-EPI 2020 equation that does not use a race coefficient. Blood Venous blood specimen / Unknown Venipuncture / Unknown 03/14/2025 12:34 AM EDT 03/14/2025 12:44 AM EDT us Gt De La Paz MD LAB BLOOD ORDERABLES Final Res ult [facility] [address] [place] [address] * (ABNORMAL) CBC W/O Differential (03/14/2025 12:34 AM EDT) WBC Count 8.78 3.70 - 10.30 10*3/uL LAB HEMATOLOGY METHOD 03/14/2025 1:01 AM EDT [facility] RBC Count 4.11(L) 4.60 - 6.10 10*6/uL LAB HEMATOLOGY METHOD 03/14/2025 1:01 AM EDT [facility] HGB 11.3(L) 13.7 - 17.5 g/dL LAB HEMATOLOGY METHOD 03/14/2025 1:01 AM EDT [facility] HCT 34.2(L) 40.0 - 51.0 % LAB HEMATOLOGY METHOD 03/14/2025 1:01 AM EDT [facility] Platelet Count 192 155 - 369 10*3/uL LAB HEMATOLOGY METHOD 03/14/2025 1:01 AM EDT [facility] MCV 83 79 - 98 fL LAB HEMATOLOGY METHOD 03/14/2025 1:01 AM EDT [facility] MCH 27.5 26.0 - 32.0 pg LAB HEMATOLOGY METHOD 03/14/2025 1:01 AM EDT [facility] MCHC 33.0 30.7 - 35.5 g/dL LAB HEMATOLOGY METHOD 03/14/2025 1:01 AM EDT [facility] RDW 16.8(H) 11.5 - 14.5 % LAB HEMATOLOGY METHOD 03/14/2025 1:01 AM EDT [facility] MPV 9.3 8.8 - 12.5 fL LAB HEMATOLOGY METHOD 03/14/2025 1:01 AM EDT [facility] nRBC 0.0 <=0.0 per 100 WBCs LAB HEMATOLOGY METHOD 03/14/2025 1:01 AM EDT [facility] Blood Venous blood specimen / Unknown Venipuncture / Unknown 03/14/2025 12:34 AM EDT 03/14/2025 12:47 AM EDT us Gt De La Paz MD LAB BLOOD ORDERABLES Final Res ult [facility] [address] [place] [address] * (ABNORMAL) Blood gas panel, venous (03/14/2025 12:34 AM EDT) pH, Venous 7.47(H) 7.32 - 7.43 LAB HEMATOLOGY METHOD 03/14/2025 12:45 AM EDT [facility] pCO2, Venous 40 40 - 55 mmHg LAB HEMATOLOGY METHOD 03/14/2025 12:45 AM EDT [facility] pO2, Venous 90(H) 25 - 40 mmHg LAB HEMATOLOGY METHOD 03/14/2025 12:45 AM EDT [facility] SO2, Measured, Venous 99(H) 65 - 80 % LAB HEMATOLOGY METHOD 03/14/2025 12:45 AM EDT [facility] Base Excess, Venous 4.9(H) -2.0 - 3.0 mmol/L LAB HEMATOLOGY METHOD 03/14/2025 12:45 AM EDT [facility] Bicarbonate, Calculated, Venous 29(H) 22 - 26 mmol/L LAB HEMATOLOGY METHOD 03/14/2025 12:45 AM EDT [facility] Hematocrit, Whole Blood 34.1(L) 40.0 - 51.0 % LAB HEMATOLOGY METHOD 03/14/2025 12:45 AM EDT [facility] Sodium, Whole Blood 135(L) 136 - 145 mmol/L LAB HEMATOLOGY METHOD 03/14/2025 12:45 AM EDT [facility] Potassium, Whole Blood 4.6 3.6 - 4.9 mmol/L LAB HEMATOLOGY METHOD 03/14/2025 12:45 AM EDT [facility] Chloride, Whole Blood 101 97 - 107 mmol/L LAB HEMATOLOGY METHOD 03/14/2025 12:45 AM EDT [facility] Glucose, Whole Blood 112(H) 74 - 99 mg/dL LAB HEMATOLOGY METHOD 03/14/2025 12:45 AM EDT [facility] Lactate, Venous, Whole Blood 1.5 0.5 - 2.2 mmol/L LAB HEMATOLOGY METHOD 03/14/2025 12:45 AM EDT [facility] Ionized Calcium, Whole Blood 4.6 4.6 - 5.1 mg/dL LAB HEMATOLOGY METHOD 03/14/2025 12:45 AM EDT [facility] Blood Venous blood specimen / Unknown Venipuncture / Unknown 03/14/2025 12:34 AM EDT 03/14/2025 12:43 AM EDT Mariah Mcgowan MD LAB BLOOD ORDERABLES Final Result [facility] [address] [place] [address] * Triglycerides (03/14/2025 12:34 AM EDT) [facility] Triglycerides, Plasma 114 <150 mg/dL 03/14/2025 1:11 AM EDT [facility] Comment: Triglyceride Reference Range (age >17 years): Desirable: <150 mg/dL Borderline high: 150 to 199 mg/dL High: 200 to 499 mg/dL Very high: >499 mg/dL Increased risk of pancreatitis: >1000 mg/dL Fasting greater than or equal to 12 hours? Yes 03/14/2025 1:11 AM EDT [facility] Blood Venous blood specimen / Unknown Venipuncture / Unknown 03/14/2025 12:34 AM EDT 03/14/2025 12:44 AM EDT us Staci Castro LAB BLOOD ORDERABLES Final Resul t [facility] [address] [place] [address] * (ABNORMAL) POCT glucose meter (03/14/2025 12:30 AM EDT) [facility] POCT Glucose 118(H) 74 - 99 mg/dL 03/14/2025 12:32 AM [facility]T [facility] Comment:Accuracy of a glucos e result obtained from a capillary whole blood specimen relies upon adequate, non-compromised capillary blood flow. If the capillary glucose result is not consistent with the patient's clinical signs and symptoms, glucose testing should be repeated with either an arterial or venous sample on the glucometer or sent to the main labortory for testing. Comment 03/14/2025 12:32 AM EDT [facility] Manager Hardware ID Heraclio Gomez 03/14/2025 12:32 AM EDT [facility] Device ID [id number] 03/14/2025 12:32 AM EDT [facility] Specimen Type POC Venous 03/14/2025 12:32 AM EDT [facility] Blood Venous blood specimen / Unknown 03/14/2025 12:30 AM EDT 03/14/2025 12:32 AM EDT us Gt De La Paz MD LAB POINT OF CARE TE ST DOCKED DEVICE UNSOLICITED RESULTS Final Result [facility] [address] [place] [address] * (ABNORMAL) POCT glucose meter (03/13/2025 6:25 PM EDT) [facility] POCT Glucose 129(H) 74 - 99 mg/dL 03/13/2025 6:26 PM EDT [facility] Comment:Accuracy of a glucos e result obtained from a capillary whole blood specimen relies upon adequate, non-compromised capillary blood flow. If the capillary glucose result is not consistent with the patient's clinical signs and symptoms, glucose testing should be repeated with either an arterial or venous sample on the glucometer or sent to the main labortory for testing. Comment 03/13/2025 6:26 PM EDT [facility] Manager Hardware ID Leeanna Linda 03/13/2025 6:26 PM EDT [facility] Device ID [id number] 03/13/2025 6:26 PM EDT [facility] Specimen Type POC Capillary 03/13/2025 6:26 PM EDT [facility] Blood Capillary blood specimen / Unknown 03/13/2025 6:25 PM EDT 03/13/2025 6:26 PM EDT Gt De La Paz MD LAB POINT OF CARE TE ST DOCKED DEVICE UNSOLICITED RESULTS Final Result [facility] [address] [place] [address] * (ABNORMAL) POCT glucose meter (03/13/2025 12:14 PM EDT) [facility] POCT Glucose 123(H) 74 - 99 mg/dL 03/13/2025 12:16 PM EDT [facility] Comment:Accuracy of a glucos e result obtained from a capillary whole blood specimen relies upon adequate, non-compromised capillary blood flow. If the capillary glucose result is not consistent with the patient's clinical signs and symptoms, glucose testing should be repeated with either an arterial or venous sample on the glucometer or sent to the main labortory for testing. Comment 03/13/2025 12:16 PM EDT [facility] Manager Hardware ID Leeanna Linda 03/13/2025 12:16 PM EDT [facility] Device ID [id number] 03/13/2025 12:16 PM EDT [facility] Specimen Type POC Capillary 03/13/2025 12:16 PM EDT [facility] Blood Capillary blood specimen / Unknown 03/13/2025 12:14 PM EDT 03/13/2025 12:16 PM EDT Gt De La Paz MD LAB POINT OF CARE TE ST DOCKED DEVICE UNSOLICITED RESULTS Final Result Performing Organization Address City/[facility] Co de Phone Number [facility] [address] [place] [address] * Body fluid, cytospin, pathologist interpretation (03/13/2025 11:34 AM EDT) Specimen Type Bronchoalveolar Lavage LAB HEMATOLOGY METHOD 03/14/2025 3:40 PM EDT [facility] Specimen Source, Body Fluid Lung, Right Middle Lobe LAB HEMATOLOGY METHOD 03/14/2025 3:40 PM EDT [facility] Clinical Diagnosis, Body Fluid Concern for R sided post-obstructive pneumonia in setting of pulmonary mass LAB HEMATOLOGY METHOD 03/14/2025 3:40 PM EDT [facility] Interpretation , Body Fluid No evidence of malignancy Predominantly alveolar macrophages Mild acute inflammatory cells A resident was involved in the service. I attest I examined the relevant preparations for the specimens and confirmed the diagnosis or interpretation. 03/14/2025 3:40 PM EDT [facility] Pathologist Signature, Body Fluid 03/14/2025 3:40 PM EDT [facility] Comment:Reviewed by: Mónica colin MD LAB CP ASR DISCLAIMER Yes 03/14/2025 3:40 PM EDT [facility] Bronchoalveolar Lavage Structure of middle lobe of right lung / Unknown 03/13/2025 11:34 AM EDT 03/13/2025 11:46 AM EDT us Gt De La Paz MD LAB BODY FLUIDS AND STOOLS ORD ERABLES Final Result [facility] [address] [place] [address] * BAL Comprehensive Respiratory Panel by PCR (03/13/2025 11:34 AM EDT) BAL Comprehensive PCR Result Not Detected for all analytes Not Detected for all analytes 03/13/2025 1:44 PM EDT [facility] Bronchoalveolar Lavage Bronchoalveolar lavage fluid specimen / Unknown 03/13/2025 11:34 AM EDT 03/13/2025 1:08 PM EDT Narrative [facility] - 03/13/2025 1:44 PM EDT This assay can detect Adenovirus, Coronavirus, Human Metapneumovirus, Human Rhino/Enterovirus, Influenza A, Influenza A H1, Influenza A H1 2009, Influenza A H3, Influenza B, Parainfluenza Virus 1, Parainfluenza Virus 2, Parainfluenza Virus 3, Parainfluenza Virus 4, Respiratory Syncytial Virus A, Respiratory Syncytial Virus B, Chlamydia pneumoniae, and Mycoplasma pneumoniae. Note: This assay does NOT detect SARS/CoV, novel Coronavirus 2019-nCoV, Bordetella pertussis or Bordetella parapertussis. This PCR assay was developed and its performance characteristics determined by [facility] as appropriate for clinical purposes. This assay has not been cleared or approved by the FDA, but is performed in a CLIA regulated laboratory that is performed in a CLIA regulated laboratory that is qualified to perform high-complexity testing. The [facility] Clinical Microbiology Laboratory is certified under the Clinical Laboratory Improvement Amendments of 1988 (CLIA-88) as qualified to perform high complexity clinical laboratory testing. Gt De La Paz MD LAB MICROBIOLOGY - GENERAL ORD ERABLES Final Result [facility] [address] [place] [address] * Pneumocystis Jirovecii by PCR (03/13/2025 11:34 AM EDT) P. Jirovecii by PCR Not Detected 03/17/2025 12:16 AM EDT [facility] ([employer]) P. Jirovecii Source BAL 03/17/2025 12:16 AM EDT [facility] (BEAKER) Bronchoalveolar Lavage Bronchoalveolar lavage fluid specimen / Unknown 03/13/2025 11:34 AM EDT 03/13/2025 11:46 AM EDT Narrative [facility] ([place]) - 03/17/2025 12:16 AM EDT NOT DETECTED - A negative result does not rule out the presence of PCR inhibitors in the patient specimen or assay specific nucleic acid in concentrations below the level of detection by the assay. This test was developed and its performance characteristics determined by [facility] [facility]. It has not been cleared or approved by the US Food and Drug Administration. This test was performed in a CLIA certified laboratory and is intended for clinical purposes. Performed By: [facility] [address] [place] [address] Computer Programmer Analyst: Saqib Cortes MD, PhD CLIA Number: [id number] us Gt De La Paz MD LAB REF LAB BLOOD AND FLUID OR D Final Result [facility] ([facility] [address] [place] [address] * Aspergillus galactomannan antigen (03/13/2025 11:34 AM EDT) Aspergillus galactomannan EIA (BAL) 0.051 <0.500 03/15/2025 6:38 PM EDT [facility] ([facility]) Comment: Interpretation: Patients with an index value of greater than or equal to 0.5 are considered to be positive for galactomannan antigen. The Platelia(TM) Aspergillus EIA package insert also recommends a new sample be collected from the patient for follow-up testing. Patients with an index value of less than 0.5 are considered to be negative for galactomannan antigen. A negative result may indicate that the patient's result is below the detectable level of the assay. Negative results do not rule out the diagnosis of Invasive Aspergillosis. Pursuant to the package insert, repeat testing is recommended if the result is negative, but the disease is suspected. Due to the potential for environmental contamination when transferred to pour-off tubes, which can lead to false positive results, interpret positive results from samples provided in pour-off tubes with caution. Results should be used in conjunction with clinical findings, and should not form the sole basis for a diagnosis or treatment decision. The Platelia Aspergillus Galactomannan EIA is a product of [employer] and is FDA approved for in vitro diagnostic use. Testing Performed at: [facility] [address], [address] [place] [address] Certified Tumor Registrar: Dominick Gonsalez, PhD [facility] ([facility]) CLIA # [id number] FLAG Interpretation: A = Abnormal, H = High, L = Low Bronchoalveolar Lavage Bronchoalveolar lavage fluid specimen / Unknown 03/13/2025 11:34 AM EDT 03/13/2025 11:46 AM EDT Narrative [facility] ([facility]) - 03/15/2025 6:38 PM EDT [facility]mediate us Gt De La Paz MD LAB BODY FLUIDS AND STOOLS ORD ERABLES Final Result [facility] ([facility]) * Non-Gynecologic Cytology, Fluid (03/13/2025 11:34 AM EDT) Case Report Cytology Case: [id number] Authorizing Provider: Gt De La Paz MD Collected: 03/13/2025 1134 Ordering Location: [facility] Inpatient Received: 03/14/2025 0828 Pathologist: Kai Gilbert MD Specimen: Bronchial Washing, Right Middle Lobe, BRONCHIAL WASHING, RIGHT MIDDLE LOBE 03/14/2025 5:45 PM EDT [facility] Final Diagnosis A. BRONCHIAL WASHING, RIGHT MIDDLE LOBE - NO EVIDENCE OF MALIGNANCY. NO VIRAL CHANGES IDENTIFIED, PREDOMINANTLY MACROPHAGES, GMS STAIN IS NEGATIVE FOR ORGANISMS. 03/14/2025 5:45 PM EDT [facility] at 1745 EDT Clinical History possible malignancy 03/14/2025 5:45 PM EDT [facility] Previous Cancer No 5:45 PM EDT [facility] Gross Description A. BRONCHIAL WASHING, RIGHT MIDDLE LOBE 20 ml's hazy fluid processed as thin prep and GMS 03/14/2025 5:45 PM EDT [facility] Non-Gynecologica l (Select Specimen Source) Specimen from lung obtained by bronchial washing procedure / Unknown 03/13/2025 11:34 AM EDT 03/14/2025 8:28 AM EDT us Gt De La Paz MD LAB CYTOLOGY ORDERABLES Final Result [facility] [address] [place] [address] * Bronchoalveolar Lavage Cell Count W/ Diff (03/13/2025 11:34 AM EDT) Neutrophils %, BAL 10 % LAB HEMATOLOGY METHOD 03/13/2025 5:20 PM EDT [facility] Lymphocytes %, BAL 0 % LAB HEMATOLOGY METHOD 03/13/2025 5:20 PM EDT [facility] Monocytes/Macrop hages %, BAL 84 % LAB HEMATOLOGY METHOD 03/13/2025 5:20 PM EDT [facility] Eosinophils %, BAL 0 % LAB HEMATOLOGY METHOD 03/13/2025 5:20 PM EDT [facility] Basophils %, BAL 0 % LAB HEMATOLOGY METHOD 03/13/2025 5:20 PM EDT [facility] Squamous Cells %, BAL 0 % LAB HEMATOLOGY METHOD 03/13/2025 5:20 PM EDT [facility] Bronchial Cells %, BAL 6 % LAB HEMATOLOGY METHOD 03/13/2025 5:20 PM EDT [facility] Other Cells %, BAL 0 % LAB HEMATOLOGY METHOD 03/13/2025 5:20 PM EDT [facility] Comment, BAL None LAB HEMATOLOGY METHOD 03/13/2025 5:20 PM EDT [facility] Comment:This is an appended report. These results have been appended to a previously preliminary verified report. Total Nucleated Cell Count, BAL 272 uL LAB HEMATOLOGY METHOD 03/13/2025 5:20 PM EDT [facility] Comment:Clot present, may af fect results. Test performed by manual method. Bronchoalveolar Lavage Structure of middle lobe of right lung / Unknown 03/13/2025 11:34 AM EDT 03/13/2025 11:46 AM EDT us Gt De La Paz MD LAB BODY FLUIDS AND STOOLS ORD ERABLES Final Result Performing Organization Address [facility] Co de Phone Number [facility] [address] [place] [address] * Quantitative BAL/PAL/Bronch Wash Culture and Gram StainBronchoalveolar Lavage, Right Middle Lobe (03/13/2025 11:34 AM EDT) Culture No growth at day 2 2024 8:18 AM EDT [facility] Gram Stain Result No polymorphonuclear leukocytes seen 03/15/2025 8:18 AM EDT [facility] Gram Stain Result No organisms seen 03/15/2025 8:18 AM EDT [facility] Bronchoalveolar Lavage Bronchoalveolar lavage fluid specimen / Unknown 03/13/2025 11:34 AM EDT 03/13/2025 1:08 PM EDT us Gt De La Paz MD LAB MICROBIOLOGY - GENERAL ORD ERABLES Final Result Performing Organization Address [facility] Phone Number [facility] [address] [place] [address] * BEDSIDE BRONCHOSCOPY (03/13/2025 10:30 AM EDT) Narrative Gt De La Paz MD - 03/13/2025 10:30 AM EDT Gt De La Paz MD 03/14/2025 9:30 AM Bronchoscopy Performed by: Gt De La Paz MD Authorized by: Gt De La Paz MD us Gt De La Paz MD IN CLINIC/BEDSIDE ORDERABLES E dited Result - Final * [facility], E/M 30-74 MINUTES (03/13/2025 7:06 AM EDT) Narrative Gt De La Paz MD - 03/13/2025 7:06 AM EDT Gt De La Paz MD 03/13/2025 6:01 PM Critical Care Performed by: Gt De La Paz MD Authorized by: Gt De La Paz MD Critical care provider statement: Critical care time (minutes): 30 Critical care time was exclusive of: Separately billable procedures and treating other patients and teaching time Critical care was time spent personally by me on the following activities: Development of treatment plan with patient or surrogate, evaluation of patient's response to treatment, obtaining history from patient or surrogate, examination of patient, ordering and performing treatments and interventions, ordering and review of laboratory studies, ordering and review of radiographic studies, review of old charts and ventilator management Critical care statement: I saw and evaluated the patient with the resident/ fellow. I discussed the case with the resident/ fellow and agree with the findings and plan as documented. Gt De La Paz MD IN CLINIC/BEDSIDE ORDERABLES F inal Result * (ABNORMAL) POCT glucose meter (03/13/2025 6:22 AM EDT) POCT Glucose 174(H) 74 - 99 mg/dL 03/13/2025 6:24 AM EDT [facility] Comment:Accuracy of a glucos e result obtained from a capillary whole blood specimen relies upon adequate, non-compromised capillary blood flow. If the capillary glucose result is not consistent with the patient's clinical signs and symptoms, glucose testing should be repeated with either an arterial or venous sample on the glucometer or sent to the main labortory for testing. Comment 03/13/2025 6:24 AM EDT [facility] Manager Hardware ID Heraclio Gomez 03/13/2025 6:24 AM EDT [facility] Device ID [id number] 03/13/2025 6:24 AM EDT [facility] Specimen Type POC Capillary 03/13/2025 6:24 AM EDT [facility] Blood Capillary blood specimen / Unknown 03/13/2025 6:22 AM EDT 03/13/2025 6:24 AM EDT Mariah Mcgowan MD LAB POINT OF CARE TEST DOCKED DEVICE UNSOLICITED RESULTS Final Result [facility] [address] [place] [address] * (ABNORMAL) POCT glucose meter (03/13/2025 12:58 AM EDT) Pathologist [facility] POCT Glucose 167(H) 74 - 99 mg/dL 03/13/2025 12:59 AM EDT [facility] Comment:Accuracy of a glucos e result obtained from a capillary whole blood specimen relies upon adequate, non-compromised capillary blood flow. If the capillary glucose result is not consistent with the patient's clinical signs and symptoms, glucose testing should be repeated with either an arterial or venous sample on the glucometer or sent to the main labortory for testing. Comment 03/13/2025 12:59 AM EDT [facility] Manager Hardware ID Leigh Vogt 025 12:59 AM EDT [facility] LAB Device ID [id number] 03/13/2025 12:59 AM EDT [facility] Specimen Type POC Venous 03/13/2025 12:59 AM EDT [facility] Blood Venous blood specimen / Unknown 03/13/2025 12:58 AM EDT 03/13/2025 12:59 AM EDT us Mariah Mcgowan MD LAB POINT OF CARE TEST DOCKED DEVICE UNSOLICITED RESULTS Final Result Performing Organization Address [facility] Co de Phone Number [facility] [address] [place] [address] * LACTIC ACID, VENOUS (03/13/2025 12:57 AM EDT) Lactate, Venous, Whole Blood 1.6 0.5 - 2.2 mmol/L LAB HEMATOLOGY METHOD 03/13/2025 1:12 AM EDT [facility] Blood Venous blood specimen / Unknown Venipuncture / Unknown 03/13/2025 12:57 AM EDT 03/13/2025 1:09 AM EDT us Mariah Mcgowan MD LAB BLOOD ORDERABLES Final Result [facility] [address] [place] [address] * (ABNORMAL) Comprehensive metabolic panel (03/13/2025 12:57 AM EDT) Glucose, Plasma 148(H) 74 - 99 mg/dL 03/13/2025 1:41 AM EDT [facility] BUN, Plasma 31(H) 8 - 23 mg/dL 03/13/2025 1:41 AM EDT [facility] Creatinine, Plasma 2.10(H) 0.70 - 1.20 mg/dL 03/13/2025 1:41 AM EDT [facility] BUN/Creatinine Ratio 15 03/13/2025 1:41 AM EDT [facility] Sodium, Plasma 136 136 - 145 mmol/L 03/13/2025 1:41 AM EDT [facility] Potassium, Plasma 4.5 3.6 - 4.9 mmol/L 03/13/2025 1:41 AM EDT [facility] Chloride, Plasma 99 97 - 107 mmol/L 03/13/2025 1:41 AM EDT [facility] CO2, Plasma 25 22 - 29 mmol/L 03/13/2025 1:41 AM EDT [facility] Anion Gap 12 6 - 16 mmol/L 03/13/2025 1:41 AM EDT [facility] Total Calcium, Plasma 9.2 8.9 - 10.2 mg/dL 03/13/2025 1:41 AM EDT [facility] Total Protein 6.5 6.3 - 7.9 g/dL 03/13/2025 1:41 AM EDT [facility] Albumin, Plasma 3.9 3.5 - 5.2 g/dL 03/13/2025 1:41 AM EDT [facility] AST, Plasma 16 10 - 50 U/L 03/13/2025 1:41 AM EDT [facility] ALT, Plasma 10 10 - 50 U/L 03/13/2025 1:41 AM EDT [facility] Alkaline Phosphatase, Plasma 77 40 - 115 U/L 03/13/2025 1:41 AM EDT [facility] Total Bilirubin, Plasma 0.3 0.2 - 1.1 mg/dL 03/13/2025 1:41 AM EDT [facility] eGFRcr 32.8 mL/min/1.7 3m*2 03/13/2025 1:41 AM EDT [facility] Comment:Reported eGFRcr in m L/min/1.73m2 is based the CKD-EPI 2020 equation that does not use a race coefficient. Blood Venous blood specimen / Unknown Venipuncture / Unknown 03/13/2025 12:57 AM EDT 03/13/2025 1:12 AM EDT us Mariah Mcgowan MD LAB BLOOD ORDERABLES Final Result [facility] [address] [place] [address] * (ABNORMAL) Blood gas panel, venous (03/13/2025 12:57 AM EDT) pH, Venous 7.36 7.32 - 7.43 LAB HEMATOLOGY METHOD 03/13/2025 1:12 AM EDT [facility] pCO2, Venous 49 40 - 55 mmHg LAB HEMATOLOGY METHOD 03/13/2025 1:12 AM EDT [facility] pO2, Venous 66(H) 25 - 40 mmHg LAB HEMATOLOGY METHOD 03/13/2025 1:12 AM EDT [facility] SO2, Measured, Venous 95(H) 65 - 80 % LAB HEMATOLOGY METHOD 03/13/2025 1:12 AM EDT [facility] Base Excess, Venous 1.4 -2.0 - 3.0 mmol/L LAB HEMATOLOGY METHOD 03/13/2025 1:12 AM EDT [facility] Bicarbonate, Calculated, Venous 28(H) 22 - 26 mmol/L LAB HEMATOLOGY METHOD 03/13/2025 1:12 AM EDT [facility] Hematocrit, Whole Blood 35.6(L) 40.0 - 51.0 % LAB HEMATOLOGY METHOD 03/13/2025 1:12 AM EDT [facility] Sodium, Whole Blood 136 136 - 145 mmol/L LAB HEMATOLOGY METHOD 03/13/2025 1:12 AM EDT [facility] Potassium, Whole Blood 4.3 3.6 - 4.9 mmol/L LAB HEMATOLOGY METHOD 03/13/2025 1:12 AM EDT [facility] Chloride, Whole Blood 101 97 - 107 mmol/L LAB HEMATOLOGY METHOD 03/13/2025 1:12 AM EDT [facility] Glucose, Whole Blood 148(H) 74 - 99 mg/dL LAB HEMATOLOGY METHOD 03/13/2025 1:12 AM EDT [facility] Lactate, Venous, Whole Blood 1.6 0.5 - 2.2 mmol/L LAB HEMATOLOGY METHOD 03/13/2025 1:12 AM EDT [facility] Ionized Calcium, Whole Blood 4.8 4.6 - 5.1 mg/dL LAB HEMATOLOGY METHOD 03/13/2025 1:12 AM EDT [facility] Blood Venous blood specimen / Unknown Venipuncture / Unknown 03/13/2025 12:57 AM EDT 03/13/2025 1:09 AM EDT Mariah cMgowan MD LAB BLOOD ORDERABLES Final Result [facility] [address] [place] [address] * Phosphorus, Plasma (03/13/2025 12:57 AM EDT) Phosphorus, Plasma 2.8 2.5 - 4.5 mg/dL 03/13/2025 1:41 AM EDT [facility] Blood Venous blood specimen / Unknown Venipuncture / Unknown 03/13/2025 12:57 AM EDT 03/13/2025 1:12 AM EDT Mariah Mcgowan MD LAB BLOOD ORDERABLES Final Result Performing Organization Address City/[facility]/[place] [address] * (ABNORMAL) Magnesium, Plasma (03/13/2025 12:57 AM EDT) Magnesium, Plasma 1.7(L) 1.9 - 2.4 mg/dL 03/13/2025 1:41 AM EDT [facility] Blood Venous blood specimen / Unknown Venipuncture / Unknown 03/13/2025 12:57 AM EDT 03/13/2025 1:12 AM EDT Mariah Mcgowan MD LAB BLOOD ORDERABLES Final Result Performing Organization Address City/[facility]/[place] [address] * Ionized calcium, serum (03/13/2025 12:57 AM EDT) Ionized Calcium, Serum 4.9 4.6 - 5.3 mg/dL LAB HEMATOLOGY METHOD 03/13/2025 1:45 AM EDT [facility] Blood Venous blood specimen / Unknown Venipuncture / Unknown 03/13/2025 12:57 AM EDT 03/13/2025 1:12 AM EDT Mariah Mcgowan MD LAB BLOOD ORDERABLES Final Result [facility] [address] [place] [address] * (ABNORMAL) CBC W/O Differential (03/13/2025 12:57 AM EDT) Pathologist [facility] WBC Count 8.81 3.70 - 10.30 10*3/uL LAB HEMATOLOGY METHOD 03/13/2025 1:27 AM EDT [facility] RBC Count 4.33(L) 4.60 - 6.10 10*6/uL LAB HEMATOLOGY METHOD 03/13/2025 1:27 AM EDT [facility] HGB 12.0(L) 13.7 - 17.5 g/dL LAB HEMATOLOGY METHOD 03/13/2025 1:27 AM EDT [facility] HCT 37.6(L) 40.0 - 51.0 % LAB HEMATOLOGY METHOD 03/13/2025 1:27 AM EDT [facility] Platelet Count 175 155 - 369 10*3/uL LAB HEMATOLOGY METHOD 03/13/2025 1:27 AM EDT [facility] MCV 87 79 - 98 fL LAB HEMATOLOGY METHOD 03/13/2025 1:27 AM EDT [facility] MCH 27.7 26.0 - 32.0 pg LAB HEMATOLOGY METHOD 03/13/2025 1:27 AM EDT [facility] MCHC 31.9 30.7 - 35.5 g/dL LAB HEMATOLOGY METHOD 03/13/2025 1:27 AM EDT [facility] RDW 16.9(H) 11.5 - 14.5 % LAB HEMATOLOGY METHOD 03/13/2025 1:27 AM EDT [facility] MPV 9.4 8.8 - 12.5 fL LAB HEMATOLOGY METHOD 03/13/2025 1:27 AM EDT [facility] nRBC 0.0 <=0.0 per 100 WBCs LAB HEMATOLOGY METHOD 03/13/2025 1:27 AM EDT [facility] Blood Venous blood specimen / Unknown Venipuncture / Unknown 03/13/2025 12:57 AM EDT 03/13/2025 1:15 AM EDT Mariah Mcgowan MD LAB BLOOD ORDERABLES Final Result Performing Organization Address City/[facility]/ZIP Co de Phone Number [facility] [address] [place] [address] * Urinalysis Microscopic Examination (03/12/2025 11:05 PM EDT) Urine Urine specimen obtained by clean catch procedure / Unknown Non-blood Collection / Unknown 03/12/2025 11:05 PM EDT 03/12/2025 11:11 PM EDT Mariah Mcgowan MD LAB URINE ORDERABLES Final Result Performing Organization Address City/[facility] Co de Phone Number [facility] [address] [place] [address] * (ABNORMAL) Opiates Confirm Urine (03/12/2025 11:05 PM EDT) Codeine <50 <50 ng/mL 03/15/2025 5:06 PM EDT [facility] Codeine Glucuronide <50 <50 ng/mL 03/15/2025 5:06 PM EDT [facility] Desmethyl Tramadol <50 <50 ng/mL 03/15/2025 5:06 PM EDT [facility] EDDP - Methadone Metabolite <50 <50 ng/mL 03/15/2025 5:06 PM EDT [facility] Hydrocodone 460(H) <50 ng/mL 03/15/2025 5:06 PM EDT [facility] Hydromorphone 177(H) <50 ng/mL 03/15/2025 5:06 PM EDT [facility] Hydromorphone Glucuronide >1,000(H) <50 ng/mL 03/15/2025 5:06 PM EDT [facility] Comment:Metabolite of Hydrom orphone Meperidine <50 <50 ng/mL 03/15/2025 5:06 PM EDT [facility] Methadone <50 <50 ng/mL 03/15/2025 5:06 PM EDT [facility] 6 Monoacetyl morphine <10 <10 ng/mL 03/15/2025 5:06 PM EDT [facility] Morphine <50 <50 ng/mL 03/15/2025 5:06 PM EDT [facility] Morphine Glucuronide <50 <50 ng/mL 03/15/2025 5:06 PM EDT [facility] Comment:Metabolite of Morphi ne Naloxone <50 <50 ng/mL 03/15/2025 5:06 PM EDT [facility] Naloxone Glucuronide <50 <50 ng/mL 03/15/2025 5:06 PM EDT [facility] Comment:Metabolite of Naloxo ne Normeperidine <50 <50 ng/mL 03/15/2025 5:06 PM EDT [facility] Tramadol <50 <50 ng/mL 03/15/2025 5:06 PM EDT [facility] Urine Urine specimen obtained by clean catch procedure / Unknown Non-blood Collection / Unknown 03/12/2025 11:05 PM EDT 03/12/2025 11:11 PM EDT Narrative [facility] - 03/15/2025 5:06 PM EDT Drug analysis is confirmed by LC-MS/MS (LC Tandem Mass Spectrometry) on Urine specimens. This test was developed and its performance characteristics determined by [facility]. It has not been cleared or approved by the FDA. The laboratory is regulated under CLIA as qualified to perform high-complexity testing. This test is used for clinical purposes. Testing is performed at the [facility], Special Chemistry Laboratory. Mariah Mcgowan MD LAB URINE ORDERABLES Final Result [facility] [address] [place] [address] * (ABNORMAL) Fentanyl Urine Confirm (03/12/2025 11:05 PM EDT) Fentanyl 3(H) <1 ng/mL 03/15/2025 5:06 PM EDT [facility] Norfentanyl 5(H) <2 ng/mL 03/15/2025 5:06 PM EDT [facility] Urine Urine specimen obtained by clean catch procedure / Unknown Non-blood Collection / Unknown 03/12/2025 11:05 PM EDT 03/12/2025 11:11 PM EDT Narrative [facility] - 03/15/2025 5:06 PM EDT Drug analysis is confirmed by LC-MS/MS (LC Tandem Mass Spectrometry) on Urine specimens. This test was developed and its performance characteristics determined by [facility]. It has not been cleared or approved by the FDA. The laboratory is regulated under CLIA as qualified to perform high-complexity testing. This test is used for clinical purposes. Testing is performed at the [facility], [facility] Laboratory. Mariah Mcgowan MD LAB URINE ORDERABLES Final Result [facility] [address] [place] [address] * (ABNORMAL) Urinalysis with reflex microscopic (Culture NOT Included) (03/12/2025 11:05 PM EDT) Color, Urine Yellow LAB URINALYSIS - AUTOMATED METHOD 03/13/2025 12:17 AM EDT [facility] Clarity, Urine Clear LAB URINALYSIS - AUTOMATED METHOD 03/13/2025 12:17 AM EDT [facility] Spec [place], Urine >1.030(H) 1.005 - 1.030 LAB URINALYSIS - AUTOMATED METHOD 03/13/2025 12:17 AM EDT [facility] pH, Urine 7.0 5.0 - 8.0 LAB URINALYSIS - AUTOMATED METHOD 03/13/2025 12:17 AM EDT [facility] Protein, Urine 30(A) Negative mg/dL LAB URINALYSIS - AUTOMATED METHOD 03/13/2025 12:17 AM EDT [facility] Glucose, Urine 100(A) Negative mg/dL LAB URINALYSIS - AUTOMATED METHOD 03/13/2025 12:17 AM EDT [facility] Ketones, Urine Negative Negative mg/dL LAB URINALYSIS - AUTOMATED METHOD 03/13/2025 12:17 AM EDT [facility] Blood, Urine Large(A) Negative LAB URINALYSIS - AUTOMATED METHOD 03/13/2025 12:17 AM EDT [facility] Bilirubin, Urine Negative Negative LAB URINALYSIS - AUTOMATED METHOD 03/13/2025 12:17 AM EDT [facility] Urobilinogen, Urine 0.2 0.2 to 1.0 mg/dL LAB URINALYSIS - AUTOMATED METHOD 03/13/2025 12:17 AM EDT [facility] Leukocytes, Urine Moderate(A) Negative LAB URINALYSIS - AUTOMATED METHOD 03/13/2025 12:17 AM EDT [facility] Nitrite, Urine Negative Negative LAB URINALYSIS - AUTOMATED METHOD 03/13/2025 12:17 AM EDT [facility] RBC, Urine >50(A) 0 to 3 /HPF LAB URINALYSIS - AUTOMATED METHOD 03/13/2025 12:17 AM EDT [facility] WBC, Urine >50(A) 0 to 5 /HPF LAB URINALYSIS - AUTOMATED METHOD 03/13/2025 12:17 AM EDT [facility] Squamous Epithelial Cells 0 - 2 0 to 5 /HPF LAB URINALYSIS - AUTOMATED METHOD 03/13/2025 12:17 AM EDT [facility] Hyaline Casts 0 - 2 0 to 5 /LPF LAB URINALYSIS - AUTOMATED METHOD 03/13/2025 12:17 AM EDT [facility] Bacteria, Urine Negative Negative LAB URINALYSIS - AUTOMATED METHOD 03/13/2025 12:17 AM EDT [facility] Urine Urine specimen obtained by clean catch procedure / Unknown Non-blood Collection / Unknown 03/12/2025 11:05 PM EDT 03/12/2025 11:11 PM EDT us Mariah Mcgowan MD LAB URINE ORDERABLES Final Result [facility] [address] [place] [address] * Drug Abuse Screen Urine (03/12/2025 11:05 PM EDT) Amphetamine Screen Urine Negative Cutoff: 500 ng/mL 03/12/2025 11:44 PM EDT [facility] Benzodiazepines Screen Urine Negative Cutoff: 200 ng/mL 03/12/2025 11:44 PM EDT [facility] Cannabinoid Screen Urine Negative Cutoff: 50 ng/mL 03/12/2025 11:44 PM EDT [facility] Cocaine Screen Urine Negative Cutoff: 300 ng/mL 03/12/2025 11:44 PM EDT [facility] Barbiturate Screen Urine Negative Cutoff: 200 ng/mL 03/12/2025 11:44 PM EDT [facility] Opiate Screen Urine Presumptive positive. Confirmation by LC-MS/MS to follow. Cutoff: 300 ng/mL 03/12/2025 11:44 PM EDT [facility] Methadone Screen Urine Negative Cutoff: 300 ng/mL 03/12/2025 11:44 PM EDT [facility] Buprenorphine Screen Urine Negative Cutoff: 10 ng/mL 03/12/2025 11:44 PM EDT [facility] Fentanyl Screen Urine Presumptive positive. Confirmation by LC-MS/MS to follow. Cutoff: 1 ng/mL 03/12/2025 11:44 PM EDT [facility] Oxycodone Screen Urine Negative Cutoff: 100 ng/mL 03/12/2025 11:44 PM EDT [facility] Urine Urine specimen obtained by clean catch procedure / Unknown Non-blood Collection / Unknown 03/12/2025 11:05 PM EDT 03/12/2025 11:11 PM EDT Mariah Mcgowan MD LAB URINE ORDERABLES Final Result [facility] [address] [place] [address] * Multi Drug Resistance Test (03/12/2025 10:18 PM EDT) Culture No growth at day 1 03/14/2025 8:08 AM EDT [facility] Swab (Nares and Jazmyn Rectal) Non-blood Collection / Unknown 03/12/2025 10:18 PM EDT 03/12/2025 10:22 PM EDT Narrative [facility] - 03/14/2025 8:08 AM EDT This test was developed and its performance characteristics determined by the [facility]. Although the media is FDA-approved, it is not FDA-approved for all specimen types submitted. The FDA has determined that such clearance or approval is not necessary. This test is used for surveillance purposes. It should not be regarded as investigational or for research. The [facility] is certified under the Clinical Laboratory Improvement Amendments of 1988 (CLIA-88) as qualified to perform high complexity clinical laboratory testing. Mariah Mcgowan MD LAB MICROBIOLOGY - GENERAL ORDERABLES Final Result Performing Organization Address City/[facility]/ZIP Co de Phone Number [facility] [address] [place] [address] * Cathy auris Surveillance by PCR (03/12/2025 10:18 PM EDT) Pathologist [facility] Cathy auris PCR Result Not Detected Not Detected 03/14/2025 6:39 AM EDT [facility] Swab (Axilla and Groin) Non-blood Collection / Unknown 03/12/2025 10:18 PM EDT 03/12/2025 10:22 PM EDT Narrative [facility] - 03/14/2025 6:39 AM EDT This PCR assay was developed and its performance characteristics determined by [facility] as appropriate for clinical purposes. This assay has not been cleared or approved by the FDA, but is performed in a CLIA regulated laboratory that is qualified to perform high-complexity testing. Mariah Mcgowan MD LAB MICROBIOLOGY - GENERAL ORDERABLES Final Result Performing Organization Address City/[facility]/ZIP Co de Phone Number [facility] [address] [place] [address] * (ABNORMAL) Potassium (03/12/2025 10:17 PM EDT) Pathologist [facility] Potassium, Plasma 6.3(H) 3.6 - 4.9 mmol/L 03/12/2025 10:44 PM EDT [facility] Blood Venous blood specimen / Unknown Venipuncture / Unknown 03/12/2025 10:17 PM EDT 03/12/2025 10:22 PM EDT Mariah Mcgowan MD LAB BLOOD ORDERABLES Final Result Performing Organization Address [facility] de Phone Number [facility] [address] [place] [address] * (ABNORMAL) Troponin T, High Sensitivity, 2 Hour, Plasma (03/12/2025 10:17 PM EDT) [facility] Troponin T, High Sensitivity, 2 Hour 28(H) <19 ng/L 03/12/2025 10:50 PM EDT [facility] Troponin Delta Interpretation Not Calculated 03/12/2025 10:50 PM EDT [facility] Comment:Specimen not collect ed within acceptable timeframe. Delta will not be calculated. Blood Venous blood specimen / Unknown Venipuncture / Unknown 03/12/2025 10:17 PM EDT 03/12/2025 10:22 PM EDT us Staci Castro LAB BLOOD ORDERABLES Final Resul t Performing Organization Address [facility] de Phone Number [facility] [address] [place] [address] * (ABNORMAL) POCT glucose meter (03/12/2025 10:14 PM EDT) [facility] POCT Glucose 137(H) 74 - 99 mg/dL 03/12/2025 10:16 PM EDT [facility] Comment:Accuracy of a glucos e result obtained from a capillary whole blood specimen relies upon adequate, non-compromised capillary blood flow. If the capillary glucose result is not consistent with the patient's clinical signs and symptoms, glucose testing should be repeated with either an arterial or venous sample on the glucometer or sent to the main labortory for testing. Comment 03/12/2025 10:16 PM EDT [facility] Manager Hardware ID Heraclio Zamorano 03/12/2025 10:16 PM EDT [facility] Device ID [id number] 03/12/2025 10:16 PM EDT [facility] Specimen Type POC Capillary 03/12/2025 10:16 PM EDT [facility] Blood Capillary blood specimen / Unknown 03/12/2025 10:14 PM EDT 03/12/2025 10:16 PM EDT Mariah Mcgowan MD LAB POINT OF CARE TEST DOCKED DEVICE UNSOLICITED RESULTS Final Result [facility] [address] [place] [address] * XR Abdomen 1 View (03/12/2025 9:21 PM EDT) Anatomical Region Laterality Modality Body Digital Radiogra phy Impressions 03/12/2025 9:28 PM EDT The tip of the nasogastric tube is within the proximal stomach. CRITICAL RESULT: No. COMMUNICATION: Per this written report. Drafted by Libra Balbuena MD on 03/12/2025 9:27 PM Final report signed by Libra Balbuena MD on 03/12/2025 9:28 PM Narrative 03/12/2025 9:28 PM EDT CLINICAL INDICATION: Orogastric tube TECHNIQUE: Supine radiograph of the abdomen. COMPARISON: None. FINDINGS: Limited [id number] abdominal radiograph for the purpose of locating tube position. The tip of the nasogastric tube is within the proximal stomach. Procedure Note Libra Balbuena MD - 03/12/2025 CLINICAL INDICATION: Orogastric tube TECHNIQUE: Supine radiograph of the abdomen. COMPARISON: None. FINDINGS: Limited [id number] abdominal radiograph for the purpose of locatingtube position. The tip of the nasogastric tube is within the proximal stomach. IMPRESSION: The tip of the nasogastric tube is within the proximal stomach. CRITICAL RESULT: No. COMMUNICATION: Per this written report. Drafted by Libra Balbuena MD on 03/12/2025 9:27 PM Final report signed by Libra Balbuena MD on 03/12/2025 9:28 PM us Staci Castro IMG XR PROCEDURES Final Result * XR Chest 1 View (03/12/2025 9:21 PM EDT) Anatomical Region Laterality Modality Chest Digital Radiogra phy Impressions 03/12/2025 9:30 PM EDT Perihilar and basilar opacities may represent atelectasis and/or airspace disease. CRITICAL RESULT: No. COMMUNICATION: Per this written report. Drafted by Libra Balbuena MD on 03/12/2025 9:28 PM Final report signed by Libra Balbuena MD on 03/12/2025 9:30 PM Narrative 03/12/2025 9:30 PM EDT CLINICAL INDICATION: SOA TECHNIQUE: XR CHEST 1 VIEW COMPARISON: Outside CT March 12, 2025 FINDINGS: Endotracheal tube terminates 4.5 cm above the lety. Nasogastric tube tip below the diaphragm. Low lung volumes. Perihilar and basilar opacities. No pneumothorax. Cardiac silhouette is within normal limits. Procedure Note Libra Balbuena MD - 03/12/2025 CLINICAL INDICATION: SOA TECHNIQUE: XR CHEST 1 VIEW COMPARISON: Outside CT March 12, 2025 FINDINGS: Endotracheal tube terminates 4.5 cm above the lety. Nasogastric tube tipbelow the diaphragm. Low lung volumes. Perihilar and basilar opacities. Nopneumothorax. Cardiac silhouette is within normal limits. IMPRESSION: Perihilar and basilar opacities may represent atelectasis and/or airspacedisease. CRITICAL RESULT: No. COMMUNICATION: Per this written report. Drafted by Libra Balbuena MD on 03/12/2025 9:28 PM Final report signed by Libra Balbuena MD on 03/12/2025 9:30 PM us Staci CORDERO XR PROCEDURES Final Result * Blood Culture (Aerobic/Anaerobet Set) (03/12/2025 9:12 PM EDT) Culture No growth at day 5 03/17/2025 10:01 PM EDT [facility] Blood Structure of left forearm / Unknown Venipuncture / Unknown 03/12/2025 9:12 PM EDT 03/12/2025 9:55 PM EDT Narrative [facility] - 03/17/2025 10:01 PM EDT Low blood volume submitted, results may be compromised us Staci Castro LAB MICROBIOLOGY - GENERAL ORDER ALLEN Final Result Performing Organization Address City/[facility]/ZIP Co de Phone Number [facility] [address] [place] [address] * Methemoglobin (03/12/2025 9:07 PM EDT) Pathologist [facility] Methemoglobin 0.6 0.0 - 1.5 % LAB HEMATOLOGY METHOD 03/12/2025 9:18 PM EDT [facility] Blood Venous blood specimen / Unknown Venipuncture / Unknown 03/12/2025 9:07 PM EDT 03/12/2025 9:17 PM EDT Result Colton Castro LAB BLOOD ORDERABLES Final Resul t Performing Organization Address City/[facility]/ZIP Co de Phone Number [facility] [address] [place] [address] * Blood Culture (Aerobic/Anaerobet Set) (03/12/2025 9:07 PM EDT) [facility] Culture No growth at day 5 03/17/2025 10:01 PM EDT [facility] Blood Structure of right wrist region / Unknown Venipuncture / Unknown 03/12/2025 9:07 PM EDT 03/12/2025 9:23 PM EDT Narrative [facility] - 03/17/2025 10:01 PM EDT Low blood volume submitted, results may be compromised Result Colton Castro LAB MICROBIOLOGY - GENERAL ORDER ALLEN Final Result Performing Organization Address City/[facility]/ZIP Co de Phone Number [facility] [address] [place] [address] * Streptococcus pneumoniae and Legionella Urinary Antigen (03/12/2025 9:00 PM EDT) Pathologist [facility] Legionella pneumophila serogroup 1 Antigen Result (Urine) Negative Negative 03/12/2025 9:44 PM EDT [facility] Streptococcus pneumoniae Antigen Result (Urine) Negative Negative 03/12/2025 9:44 PM EDT [facility] Urine Urine specimen obtained by clean catch procedure / Unknown Non-blood Collection / Unknown 03/12/2025 9:00 PM EDT 03/12/2025 9:19 PM EDT us Staci Castro LAB MICROBIOLOGY - GENERAL ORDER ALLEN Final Result [facility] [address] [place] [address] * (ABNORMAL) POCT arterial blood gas gem (03/12/2025 8:57 PM EDT) pH, Arterial 7.34 7.31 - 7.42 03/12/2025 8:59 PM EDT [facility] pCO2, Arterial 53(H) 32 - 45 mm Hg 03/12/2025 8:59 PM EDT [facility] pO2, Arterial 75 >70 mm Hg 03/12/2025 8:59 PM EDT [facility] SO2, Arterial 98 94 - 98 % 03/12/2025 8:59 PM EDT [facility] FIO2 100.0 % 03/12/2025 8:59 PM EDT [facility] Base Excess, Arterial 1.9 -2 - 3 mmol/L 03/12/2025 8:59 PM EDT [facility] HCO3, Arterial 28.6(H) 22 - 26 mmol/L 03/12/2025 8:59 PM EDT [facility] Total Hemoglobin, Arterial, Whole Blood 11.8(L) 13.7 - 17.5 g/dL 03/12/2025 8:59 PM EDT [facility] Hematocrit, Arterial 35.0(L) 40 - 51.0 % 03/12/2025 8:59 PM EDT [facility] Sodium, Arterial 132(L) 136 - 145 mmol/L 03/12/2025 8:59 PM EDT [facility] Potassium, Arterial 6.2(H) 3.6 - 4.9 mmol/L 03/12/2025 8:59 PM EDT [facility] Comment:Hemolyzed, result ma y be falsely increased. Chloride, Whole Blood 101 97 - 107 mmol/L 03/12/2025 8:59 PM EDT [facility] Glucose, Arterial 121(H) 74 - 99 mg/dL 03/12/2025 8:59 PM EDT [facility] Ionized Calcium, Arterial 4.6 4.6 - 5.1 mg/dL 03/12/2025 8:59 PM EDT [facility] Lactate, Arterial 0.7 0.5 - 1.6 mmol/L 03/12/2025 8:59 PM EDT [facility] Body Temperature 37.2 Celsius 03/12/2025 8:59 PM EDT [facility] pH, Temp Corrected, Arterial 7.34 7.31 - 7.42 03/12/2025 8:59 PM EDT [facility] pCO2, Temp Corrected, Arterial 53(H) 32 - 45 mm Hg 03/12/2025 8:59 PM EDT [facility] pO2, Temp Corrected, Arterial 76 >70 mm Hg 03/12/2025 8:59 PM EDT [facility] Manager Hardware ID Dwayne Bose 03/12/2025 8:59 PM EDT [facility] Blood, Arterial Whole blood specimen / Unknown 03/12/2025 8:57 PM EDT 03/12/2025 8:59 PM EDT us Staci Castro LAB POINT OF CARE TE ST DOCKED DEVICE UNSOLICITED RESULTS Final Result Performing Organization Address City/State/[facility] Co de Phone Number [facility] [address] [place] [id number] * SARS CoV-2/COVID-19 by PCR - Rapid (03/12/2025 8:53 PM EDT) SARS CoV-2/COVID-1 9 RNA PCR Result Not Detected Not Detected 03/12/2025 10:09 PM EDT [facility] Swab Nasopharyngeal structure / Unknown Non-blood Collection / Unknown 03/12/2025 8:53 PM EDT 03/12/2025 9:20 PM EDT Narrative [facility] - 03/12/2025 10:09 PM EDT This test is FDA approved for use with nasopharyngeal specimens in [employer] (VTM). This test is used for clinical purposes. It should not be regarded as investigational or for research. This laboratory is certified under the Clinical Laboratory improvement Amendments of 1988 (CLIA-88 as qualified to perform high complexity clinical laboratory testing. This test was performed on the Xpert Xpress SARS CoV-2 Plus assay test, a PCR- based method. Negative results should be considered presumptive and do not preclude current or future infection obtained through community transmission or other exposures. Negative results must be considered in the context of an individual's recent exposures, history, presence of clinical signs and symptoms consistent with COVID-19. us Staci Castro LAB MICROBIOLOGY - GENERAL ORDER ALLEN Final Result [facility] [address] [place] [address] * Nasopharyngeal Respiratory Panel (03/12/2025 8:53 PM EDT) Nasopharyngeal Respiratory PCR Interpretation Not Detected for all analytes Not Detected for all analytes 03/13/2025 1:10 AM EDT [facility] Swab Nasopharyngeal structure / Unknown Non-blood Collection / Unknown 03/12/2025 8:53 PM EDT 03/12/2025 9:20 PM EDT Narrative [facility] - 03/13/2025 1:10 AM EDT This assay can detect Adenovirus, Coronavirus, Human Metapneumovirus, Human Rhino/Enterovirus, Influenza A, Influenza A H1, Influenza A H1 2009, Influenza A H3, Influenza B, Parainfluenza Virus 1, Parainfluenza Virus 2, Parainfluenza Virus 3, Parainfluenza Virus 4, Respiratory Syncytial Virus A, Respiratory Syncytial Virus B, Chlamydia pneumoniae, and Mycoplasma pneumoniae. Note: This assay does NOT detect SARS/CoV, novel Coronavirus 2019-nCoV, Bordetella pertussis or Bordetella parapertussis. Nasopharyngeal Respiratory PCR Panel is performed using the [employer] instrument. This test is FDA approved for use with Nasopharyngeal swabs only. This test is used for clinical purposes. It should not be regarded as investigational or for research. The [facility] is certified under the Clinical Laboratory Improvement Amendments of 1988 (CLIA-88) as qualified to perform high complexity clinical laboratory testing. us Stacielio Castro LAB MICROBIOLOGY - GENERAL ORDER ALLEN Final Result Performing Organization Address [facility] de Phone Number [facility] [address] [place] [address] * Methicillin Resistant Staphylococcus aureus (MRSA) by PCR (03/12/2025 8:53 PM EDT) Pathologist [facility] Methicillin Resistant Staphylococcus aureus (MRSA) by PCR Not Detected Not Detected 03/12/2025 10:41 PM EDT [facility] Swab Both anterior nares / Unknown Non-blood Collection / Unknown 03/12/2025 8:53 PM EDT 03/12/2025 9:20 PM EDT Narrative [facility] - 03/12/2025 10:41 PM EDT This test is FDA approved for use with nares swab specimens using the eSwabs. This test is used for clinical purposes. It should not be regarded as investigational or for research. This laboratory is certified under the Clinical Laboratory improvement Amendments of 1988 (CLIA-88 as qualified to perform high complexity clinical laboratory testing. us Staci Castro LAB MICROBIOLOGY - GENERAL ORDER ALLEN Final Result Performing Organization Address [facility] [place] [address] * EKG now - STAT (adult) (03/12/2025 8:49 PM EDT) EKG DIAGNOSIS CLASS Abnormal MUSE ECG Ventricular Rate 62 BPM MUSE ECG Atrial Rate 62 BPM MUSE ECG AR Interval 168 ms MUSE ECG QRSD Interval 128 ms MUSE ECG QT Interval 416 ms MUSE ECG QTC Interval 422 ms MUSE ECG P [place] 64 degrees MUSE ECG R [place] 81 degrees MUSE ECG T Wave [place] 81 degrees MUSE ECG Diagnosis Normal sinus rhythm MUSE ECG Diagnosis Right bundle branch block MUSE ECG Diagnosis Abnormal ECG MUSE ECG Diagnosis MUSE ECG Diagnosis Confirmed by Chino Witt ([id number]) on 03/13/2025 8:51:16 PM MUSE ECG 03/12/2025 8:49 PM EDT 03/13/2025 8:51 PM EDT Staci Castro ECG ORDERABLES Final Result MUSE ECG * (ABNORMAL) C-reactive protein (03/12/2025 8:48 PM EDT) Pathologist [facility] CRP, Plasma 10.6(H) <=8.0 mg/L 03/12/2025 10:27 PM EDT [facility] Blood Venous blood specimen / Unknown Venipuncture / Unknown 03/12/2025 8:48 PM EDT 03/12/2025 8:59 PM EDT Narrative [facility] - 03/12/2025 10:27 PM EDT This CRP test is appropriate for assessment of infection, systemic inflammation and/or tissue injury. To assess cardiovascular disease risk order high sensitivity CRP (CRPH). Mariah Mcgowan MD LAB BLOOD ORDERABLES Final Result Performing Organization Address City/[facility] Co de Phone Number [facility] [address] [place] [address] * TSH Reflex FT4 (03/12/2025 8:48 PM EDT) [facility] Thyroid Stimulating Hormone, Plasma 2.54 0.40 - 4.20 uIU/mL 03/12/2025 10:27 PM EDT [facility] Blood Venous blood specimen / Unknown Venipuncture / Unknown 03/12/2025 8:48 PM EDT 03/12/2025 8:59 PM EDT Mariah Mcgowan MD LAB BLOOD ORDERABLES Final Result Performing Organization Address City/[facility]/ZIP Co de Phone Number [facility] [address] [place] [address] * Light Green Top (03/12/2025 8:48 PM EDT) [facility] Extra Hold for add-ons 03/13/2025 12:01 AM EDT [facility] Comment:Auto resulted. Blood Venous blood specimen / Unknown 03/12/2025 8:48 PM EDT 03/12/2025 9:20 PM EDT us Mariah Mcgowan MD LAB BLOOD ORDERABLES Final Result Performing Organization Address [facility]/ZIP Co de Phone Number [facility] [address] [place] [address] * Light Blue Top (03/12/2025 8:48 PM EDT) [facility] Extra Hold for add-ons 03/13/2025 12:01 AM EDT [facility] Comment:Auto resulted. Blood Venous blood specimen / Unknown 03/12/2025 8:48 PM EDT 03/12/2025 9:20 PM EDT us Mariah Mcgowan MD LAB BLOOD ORDERABLES Final Result Performing Organization Address [facility]/ZIP Co de Phone Number [facility] [address] [place] [address] * ED HIV 1/2 Antibody/Antigen Screen w/Reflex to HIV 1/2 Differentiation (03/12/2025 8:48 PM EDT) [facility] HIV 1 & 2 Antibody/Antigen Screen Non Reactive Non Reactive 03/12/2025 9:37 PM EDT [facility] Comment:Screening for HIV 1 & 2 antibodies, and P24 antigen is NONREACTIVE. No confirmatory testing is required. Blood Venous blood specimen / Unknown Venipuncture / Unknown 03/12/2025 8:48 PM EDT 03/12/2025 9:00 PM EDT us Staci Castro LAB BLOOD ORDERABLES Final Resul t Performing Organization Address City/[facility]/ZIP Co de Phone Number [facility] [address] [place] [address] * Hepatitis C Antibody - ED (03/12/2025 8:48 PM EDT) [facility] Hepatitis C Antibody Negative Negative 03/12/2025 9:38 PM EDT [facility] Blood Venous blood specimen / Unknown Venipuncture / Unknown 03/12/2025 8:48 PM EDT 03/12/2025 8:59 PM EDT us Staci Castro LAB BLOOD ORDERABLES Final Resul t Performing Organization Address [facility] Co de Phone Number [facility] [address] [place] [address] * (ABNORMAL) Procalcitonin (03/12/2025 8:48 PM EDT) Procalcitonin, Plasma 0.11(H) <0.09 ng/mL 03/12/2025 9:37 PM EDT [facility] Blood Venous blood specimen / Unknown Venipuncture / Unknown 03/12/2025 8:48 PM EDT 03/12/2025 8:59 PM EDT Narrative [facility] - 03/12/2025 9:37 PM EDT Procalcitonin concentrations in healthy individuals are <0.09 ng/mL. Published data support the following interpretive risk assessment: An elevated procalcitonin result does not always indicate sepsis. Various non-infectious conditions are known to increase procalcitonin. Results should be considered in the context of clinical symptoms and other laboratory tests. Procalcitonin >2.0 ng/mL: Concentrations >2.0 ng/mL on the first day of ICU admission are associated with a higher risk of progression to severe sepsis and/or septic shock. The change in PCT over time may help predict 28 day mortality risk. Please consult [email or web address]-adg-[email or web address] for more information. Test performed at [facility], [facility]. Result Colton Castro LAB BLOOD ORDERABLES Final Resul t Performing Organization Address City/[facility]/ZIP Co de Phone Number [facility] [address] [place] [address] * (ABNORMAL) Troponin now and 120 min (03/12/2025 8:48 PM EDT) Troponin T, High Sensitivity, 0 Hour 32(H) <19 ng/L 03/12/2025 9:37 PM EDT [facility] Blood Venous blood specimen / Unknown Venipuncture / Unknown 03/12/2025 8:48 PM EDT 03/12/2025 8:59 PM EDT us Staci Castro LAB BLOOD ORDERABLES Final Resul t Performing Organization Address [facility]/ZIP Co de Phone Number [facility] [address] [place] [address] * (ABNORMAL) Magnesium (03/12/2025 8:48 PM EDT) Magnesium, Plasma 1.7(L) 1.9 - 2.4 mg/dL 03/12/2025 9:37 PM EDT [facility] Blood Venous blood specimen / Unknown Venipuncture / Unknown 03/12/2025 8:48 PM EDT 03/12/2025 8:59 PM EDT us Staci Castro LAB BLOOD ORDERABLES Final Resul t Performing Organization Address [facility] Co de Phone Number [facility] [address] [place] [address] * (ABNORMAL) CMP (03/12/2025 8:48 PM EDT) Glucose, Plasma 114(H) 74 - 99 mg/dL 03/12/2025 9:37 PM EDT [facility] BUN, Plasma 30(H) 8 - 23 mg/dL 03/12/2025 9:37 PM EDT [facility] Creatinine, Plasma 2.08(H) 0.70 - 1.20 mg/dL 03/12/2025 9:37 PM EDT [facility] BUN/Creatinine Ratio 14 03/12/2025 9:37 PM EDT [facility] Sodium, Plasma 135(L) 136 - 145 mmol/L 03/12/2025 9:37 PM EDT [facility] Potassium, Plasma 6.1(H) 3.6 - 4.9 mmol/L 03/12/2025 9:37 PM EDT [facility] Chloride, Plasma 99 97 - 107 mmol/L 03/12/2025 9:37 PM EDT [facility] CO2, Plasma 27 22 - 29 mmol/L 03/12/2025 9:37 PM EDT [facility] Anion Gap 9 6 - 16 mmol/L 03/12/2025 9:37 PM EDT [facility] Total Calcium, Plasma 8.6(L) 8.9 - 10.2 mg/dL 03/12/2025 9:37 PM EDT [facility] Total Protein 6.8 6.3 - 7.9 g/dL 03/12/2025 9:37 PM EDT [facility] Albumin, Plasma 4.1 3.5 - 5.2 g/dL 03/12/2025 9:37 PM EDT [facility] AST, Plasma 17 10 - 50 U/L 03/12/2025 9:37 PM EDT [facility] ALT, Plasma 12 10 - 50 U/L 03/12/2025 9:37 PM EDT [facility] Alkaline Phosphatase, Plasma 83 40 - 115 U/L 03/12/2025 9:37 PM EDT [facility] Total Bilirubin, Plasma 0.6 0.2 - 1.1 mg/dL 03/12/2025 9:37 PM EDT [facility] eGFRcr 33.2 mL/min/1.7 3m*2 03/12/2025 9:37 PM EDT [facility] Comment:Reported eGFRcr in m L/min/1.73m2 is based the CKD-EPI 2020 equation that does not use a race coefficient. Blood Venous blood specimen / Unknown Venipuncture / Unknown 03/12/2025 8:48 PM EDT 03/12/2025 8:59 PM EDT us Staci Castro LAB BLOOD ORDERABLES Final Resul t [facility] [address] [place] [address] * (ABNORMAL) PT-INR (03/12/2025 8:48 PM EDT) Prothrombin Time 14.6(H) 12.0 - 14.3 sec 03/12/2025 9:06 PM EDT [facility] INR 1.2(H) 0.9 - 1.1 03/12/2025 9:06 PM EDT [facility] Blood Venous blood specimen / Unknown Venipuncture / Unknown 03/12/2025 8:48 PM EDT 03/12/2025 8:53 PM EDT Narrative [facility] - 03/12/2025 9:06 PM EDT OPTIMAL INR RANGES FOR PATIENT ON ORAL ANTICOAGULANT THERAPY Prevention of venous thromboembolism INR 2.0 to 3.0 In patients with heart disease: Atrial fibrillation INR 2.0 to 3.0 Valvular heart disease INR 2.0 to 3.0 Tissue heart valves INR 2.0 to 3.0 Mechanical prosthetic valves INR 2.5 to 3.5 Prevention of recurrent ID INR 2.5 to 3.5 us Staci Castro LAB BLOOD ORDERABLES Final Resul t [facility] [address] [place] [address] * (ABNORMAL) CBC w/diff (03/12/2025 8:48 PM EDT) WBC Count 9.02 3.70 - 10.30 10*3/uL LAB HEMATOLOGY METHOD 03/12/2025 8:56 PM EDT [facility] RBC Count 4.48(L) 4.60 - 6.10 10*6/uL LAB HEMATOLOGY METHOD 03/12/2025 8:56 PM EDT [facility] HGB 12.3(L) 13.7 - 17.5 g/dL LAB HEMATOLOGY METHOD 03/12/2025 8:56 PM EDT [facility] HCT 39.2(L) 40.0 - 51.0 % LAB HEMATOLOGY METHOD 03/12/2025 8:56 PM EDT [facility] Platelet Count 196 155 - 369 10*3/uL LAB HEMATOLOGY METHOD 03/12/2025 8:56 PM EDT [facility] MCV 88 79 - 98 fL LAB HEMATOLOGY METHOD 03/12/2025 8:56 PM EDT [facility] MCH 27.5 26.0 - 32.0 pg LAB HEMATOLOGY METHOD 03/12/2025 8:56 PM EDT [facility] MCHC 31.4 30.7 - 35.5 g/dL LAB HEMATOLOGY METHOD 03/12/2025 8:56 PM EDT [facility] RDW 16.8(H) 11.5 - 14.5 % LAB HEMATOLOGY METHOD 03/12/2025 8:56 PM EDT [facility] MPV 9.4 8.8 - 12.5 fL LAB HEMATOLOGY METHOD 03/12/2025 8:56 PM EDT [facility] nRBC 0.0 <=0.0 per 100 WBCs LAB HEMATOLOGY METHOD 03/12/2025 8:56 PM EDT [facility] Differential Type Automated LAB HEMATOLOGY METHOD 03/12/2025 8:56 PM EDT [facility] Neutrophils % 87 % LAB HEMATOLOGY METHOD 03/12/2025 8:56 PM EDT [facility] Lymphocytes % 11 % LAB HEMATOLOGY METHOD 03/12/2025 8:56 PM EDT [facility] Monocytes % 2 % LAB HEMATOLOGY METHOD 03/12/2025 8:56 PM EDT [facility] Eosinophils % 0 % LAB HEMATOLOGY METHOD 03/12/2025 8:56 PM EDT [facility] Basophils % 0 % LAB HEMATOLOGY METHOD 03/12/2025 8:56 PM EDT [facility] Immature Granulocytes % 0 % LAB HEMATOLOGY METHOD 03/12/2025 8:56 PM EDT [facility] Neutrophils Absolute 7.72(H) 1.60 - 6.10 10*3/uL LAB HEMATOLOGY METHOD 03/12/2025 8:56 PM EDT [facility] Lymphocytes Absolute 1.01(L) 1.20 - 3.90 10*3/uL LAB HEMATOLOGY METHOD 03/12/2025 8:56 PM EDT [facility] Monocytes Absolute 0.22(L) 0.30 - 0.90 10*3/uL LAB HEMATOLOGY METHOD 03/12/2025 8:56 PM EDT [facility] Eosinophils Absolute 0.03 0.00 - 0.50 10*3/uL LAB HEMATOLOGY METHOD 03/12/2025 8:56 PM EDT [facility] Basophils Absolute 0.02 0.00 - 0.10 10*3/uL LAB HEMATOLOGY METHOD 03/12/2025 8:56 PM EDT [facility] Immature Granulocytes Absolute 0.02 0.00 - 0.06 10*3/uL LAB HEMATOLOGY METHOD 03/12/2025 8:56 PM EDT [facility] Blood Venous blood specimen / Unknown Venipuncture / Unknown 03/12/2025 8:48 PM EDT 03/12/2025 8:53 PM EDT Narrative [facility] - 03/12/2025 8:56 PM EDT Therapeutic decision making should be based on absolute values, rather than percentages. us Staci Castro LAB BLOOD ORDERABLES Final Resul t [facility] [address] [place] [address] * [facility], ADDL 30 MIN (03/12/2025 8:41 PM EDT) Narrative Staci Jones MD - 03/12/2025 8:41 PM EDT Staci Jones MD 03/15/2025 4:00 PM Critical Care Performed by: Staci Jones MD Authorized by: Staci Jones MD Critical care provider statement: Critical care time (minutes): 35 Critical care time was exclusive of: Separately billable procedures and treating other patients and teaching time Critical care was time spent personally by me on the following activities: Development of treatment plan with patient or surrogate, discussions with consultants, examination of patient, ventilator management, ordering and review of radiographic studies, ordering and performing treatments and interventions and ordering and review of laboratory studies I assumed subsequent critical care for this patient from a provider in my division, on the same day: yes Critical care statement: I saw and evaluated the patient with the resident/ fellow. I discussed the case with the resident/ fellow and agree with the findings and plan as documented. us Staci Castro IN CLINIC/BEDSIDE ORDERABLES Fin al Result * (ABNORMAL) POCT venous blood gas gem (03/12/2025 8:41 PM EDT) pH, Venous 7.34 7.32 - 7.43 03/12/2025 8:42 PM EDT [facility] pCO2, Venous 57(H) 40 - 55 mm Hg 03/12/2025 8:42 PM EDT [facility] pO2, Venous 46(H) 25 - 40 mm Hg 03/12/2025 8:42 PM EDT [facility] SO2, Venous 82(H) 65 - 80 % 03/12/2025 8:42 PM EDT [facility] Base Excess/Deficit, Venous 3.7(H) -2 - 3 mmol/L 03/12/2025 8:42 PM EDT [facility] HCO3, Venous 30.8(H) 22 - 26 mmol/L 03/12/2025 8:42 PM EDT [facility] Hemoglobin, Venous 12.3(L) 13.7 - 17.5 g/dL 03/12/2025 8:42 PM EDT [facility] Hematocrit, Venous 37.0(L) 40.0 - 51.0 % 03/12/2025 8:42 PM EDT [facility] Sodium, Venous 132(L) 136 - 145 mmol/L 03/12/2025 8:42 PM EDT [facility] Potassium, Venous 6.4(H) 3.6 - 4.9 mmol/L 03/12/2025 8:42 PM EDT [facility] Comment:Hemolyzed, result ma y be falsely increased. POCT Chloride, Venous 101 97 - 107 mmol/L 03/12/2025 8:42 PM EDT [facility] Glucose, Venous 113(H) 74 - 99 mg/dL 03/12/2025 8:42 PM EDT [facility] Ionized Calcium, Venous 4.6 4.6 - 5.1 mg/dL 03/12/2025 8:42 PM EDT [facility] Lactate, Venous 0.9 0.5 - 2.2 mmol/L 03/12/2025 8:42 PM EDT [facility] Body Temperature 37.0 Celsius 03/12/2025 8:42 PM EDT [facility] pH, Temp Corrected, Venous 7.34 7.32 - 7.43 03/12/2025 8:42 PM EDT [facility] pCO2, Temp Corrected, Venous 57(H) 40 - 55 mm Hg 03/12/2025 8:42 PM EDT [facility] pO2, Temp Corrected, Venous 46(H) 25 - 40 mm Hg 03/12/2025 8:42 PM EDT [facility] Manager Hardware ID Irene Ro 03/12/2025 8:42 PM EDT [facility] Blood, Venous Whole blood specimen / Unknown 03/12/2025 8:41 PM EDT 03/12/2025 8:42 PM EDT us Generic Provider Poct LAB POINT OF CARE TEST DOCKED DEVICE UNSOLICITED RESULTS Final Result [facility] [address] [place] [address] documented in this encounter Visit Diagnoses Diagnosis Acute hypoxic on chronic hypercapnic respiratory failure- Primary Acute hypoxic respiratory failure Pneumonia of right lung due to infectious organism, unspecified part of lung Acute hypoxic on chronic hypercapnic respiratory failure Lung mass Swelling, mass, or lump in chest Pulmonary emphysema, unspecified emphysema type (CMS/HCC) Small cell carcinoma of right lung, unspecified part of lung Acute hypoxic respiratory failure Small cell carcinoma of right lung documented in this encounter Admitting Diagnoses Diagnosis Acute hypoxic on chronic hypercapnic respiratory failure Acute hypoxic respiratory failure documented in this encounter Administered Medications Inactive Administered Medications - up to 3 most recent administrations Medication Order MAR Action Action Date Dose Rate Site albuterol (Proventil) (2.5 MG/3ML) 0.083% nebulizer solution 10 mg 10 mg, Nebulization, Once, 1 dose, On 03/12/25 at 2205, Routine Given 03/12/2025 11:48 PM EDT 10 mg allopurinol (Zyloprim) tablet 100 mg 100 mg, Oral, Daily, First dose on Fri03/16/25 at 1200, Until Discontinued, Routine Given 03/17/2025 8:34 AM EDT 100 mg Given 03/16/2025 11:53 AM EDT 100 mg amitriptyline (Elavil) tablet 25 mg 25 mg, Nasogastric, Nightly, First dose on Fri03/13/25 at 2100, Until Discontinued, Routine Given 03/14/2025 9:41 PM EDT 25 mg Given 03/13/2025 9:39 PM EDT 25 mg amitriptyline (Elavil) tablet 25 mg 25 mg, Oral, Nightly, First dose (after last modification) on Fri03/15/25 at 2100, Until Discontinued, Routine Given 03/16/2025 9:54 PM EDT 25 mg Given 03/15/2025 8:39 PM EDT 25 mg amLODIPine (Norvasc) tablet 5 mg 5 mg, Oral, Daily, First dose on Fri03/16/25 at 0900, Until Discontinued, Routine Given 03/17/2025 8:34 AM EDT 5 mg Given 03/16/2025 8:06 AM EDT 5 mg aspirin chewable tablet 81 mg 81 mg, Nasogastric, Daily, First dose on Fri03/14/25 at 1600, Until Discontinued, Routine Given 03/14/2025 4:00 PM EDT 81 mg aspirin chewable tablet 81 mg 81 mg, Oral, Daily, First dose (after last modification) on Fri03/15/25 at 0900, Until Discontinued, Routine Given 03/17/2025 8:34 AM EDT 81 mg Given 03/16/2025 8:06 AM EDT 81 mg Given 03/15/2025 8:07 AM EDT 81 mg atorvastatin (Lipitor) tablet 20 mg 20 mg, Nasogastric, Nightly, First dose on Fri03/13/25 at 2100, Until Discontinued Given 03/14/2025 9:41 PM EDT 20 mg Given 03/13/2025 9:39 PM EDT 20 mg atorvastatin (Lipitor) tablet 20 mg 20 mg, Oral, Nightly, First dose (after last modification) on Fri03/15/25 at 2100, Until Discontinued Given 03/16/2025 9:54 PM EDT 20 mg Given 03/15/2025 8:29 PM EDT 20 mg azithromycin (Zithromax) 500 mg in sodium chloride 0.9% 250 mL IVPB (vial adapter required) 500 mg, Intravenous, Every 24 hours, First dose on 03/12/25 at 2120, Until Discontinued, STAT New Bag 03/12/2025 9:55 PM EDT 500 mg 275 mL/hr azithromycin (Zithromax) tablet 500 mg 500 mg, Nasogastric, Daily, 2 doses, First dose on Fri03/13/25 at 0900, Last dose on Fri03/14/25 at 0900, Routine Given 03/14/2025 8:12 AM EDT 500 mg Given 03/13/2025 9:55 AM EDT 500 mg calcium gluconate 10 % injection 2 g 2 g, Intravenous, Once, 1 dose, On 03/12/25 at 2205, STATIndications:Hyperkalemia Given 03/12/2025 10:52 PM EDT 2 g cefTRIAXone (Rocephin) 2 g in sodium chloride 0.9% 100 mL IVPB (vial adapter required) 2 g, Intravenous, Every 24 hours, 5 doses, First dose on Fri03/12/25 at 2300, Last dose on Fri03/16/25 at 1800, Routine New Bag 03/16/2025 5:55 PM EDT 2 g 220 mL/hr New Bag 03/15/2025 11:26 PM EDT 2 g 220 mL/hr New Bag 03/14/2025 10:27 PM EDT 2 g 220 mL/hr dextrose 50 % solution 12.5-25 g 12.5-25 g, Intravenous, Every 15 min PRN, Starting on 03/12/25 at 2154, Until Viviane 03/17/25 at 1350, Routine, low blood sugar Given 03/15/2025 4:51 AM EDT 25 g dextrose 50 % solution 25 g 25 g, Intravenous, Once, 1 dose, On 03/12/25 at 2205, Routine Given 03/12/2025 10:47 PM EDT 25 g enoxaparin (Lovenox) syringe 40 mg 40 mg, Subcutaneous, Daily, First dose on Fri03/16/25 at 1300, Until Discontinued, Routine Given 03/17/2025 8:33 AM EDT 40 mg Left Lower Abdomen Given 03/16/2025 1:07 PM EDT 40 mg Le ft Lower Abdomen esomeprazole (NexIUM) packet for suspension 40 mg 40 mg, Nasogastric, Daily before breakfast, First dose on Fri03/13/25 at 0900, Until Discontinued, Routine Given 03/14/2025 8:12 AM EDT 40 mg Given 03/13/2025 8:07 AM EDT 40 mg fentaNYL (Sublimaze) injection 100 mcg 100 mcg, Intravenous, Once, 1 dose, On 03/12/25 at 2045, Routine Given 03/12/2025 8:35 PM EDT 100 mcg furosemide (Lasix) injection 80 mg 80 mg, Intravenous, Once, 1 dose, On Fri03/13/25 at 0100, Routine Given 03/13/2025 12:11 AM EDT 80 mg gabapentin (Neurontin) capsule 300 mg 300 mg, Nasogastric, 2 times daily, First dose on Fri03/13/25 at 1115, Until Discontinued Given 03/14/2025 9:41 PM EDT 300 mg Given 03/14/2025 8:12 AM EDT 300 mg Given 03/13/2025 9:39 PM EDT 300 mg gabapentin (Neurontin) capsule 300 mg 300 mg, Oral, 2 times daily, First dose (after last modification) on Fri03/15/25 at 0900, Until Discontinued Given 03/17/2025 8:34 AM EDT 300 mg Given 03/16/2025 9:54 PM EDT 300 mg Given 03/16/2025 8:06 AM EDT 300 mg glucagon (human recombinant) injection 1 mg 1 mg, Intramuscular, Every 15 min PRN, Starting on 03/12/25 at 2154, Until Viviane 03/17/25 at 1350, Routine, low blood sugar per Hypoglycemia Prevention and Treatment protocol glucose (Glutose) 40 % oral gel 15-30 grams of glucose 15-30 grams of glucose, Sublingual, Every 15 min PRN, Starting on 03/12/25 at 2154, Until Viviane 03/17/25 at 1350, Routine, low blood sugar, per Hypoglycemia Prevention and Treatment protocol heparin (porcine) injection 5,000 Units 5,000 Units, Subcutaneous, Every 8 hours scheduled, First dose on Fri03/13/25 at 0900, Until Discontinued, Routine Given 03/16/2025 6:07 AM EDT 5,000 Units Left Lower Abdomen Given 03/15/2025 10:40 PM EDT 5,000 Units Left Lower Abdomen Given 03/15/2025 1:34 PM EDT 5,000 Units L eft Lower Abdomen HYDROcodone-acetaminophen (Dolores) 5-325 MG per tablet 10 mg of hydrocodone 10 mg of hydrocodone, Oral, Every 6 hours PRN, Starting on 03/14/25 at 1731, Until Viviane 03/17/25 at 1350, Routine, moderate pain Given 03/16/2025 9:54 PM EDT 10 mg of hydrocodone Given 03/14/2025 6:09 PM EDT 10 mg of hydrocodone HYDROmorphone (Dilaudid) bolus from bag 0.5 mg, Intravenous, Every 10 min PRN, Starting on Fri03/12/25 at 2042, Until Fri03/14/25 at 1243, Administer over 2 Minutes, Routine, CPOT (5-8) Bolus from Bag 03/13/2025 10:24 AM EDT 0.5 mg Bolus from Bag 03/12/2025 8:46 PM EDT 0.5 mg hydromorphone 20 mg in NS 100 mL infusion (200 mcg/mL) 0.25-2 mg/hr (1.25-10 mL/hr), 0.2 mg/mL, Intravenous, Titrated, Starting on Fri03/12/25 at 2044, Until Fri03/14/25 at 1243, Routine Rate/Dose Verify 03/14/2025 6:00 AM EDT 0.5 mg/hr 2.5 mL/hr Rate/Dose Verify 03/14/2025 5:00 AM EDT 0.5 mg/hr 2.5 mL/ hr Rate/Dose Verify 03/14/2025 4:00 AM EDT 0.5 mg/hr 2.5 mL/ hr insulin lispro (Admelog) 100 units/mL injection - Correction - Standard Dose 0-5 Units, Subcutaneous, 3 times daily with meals, First dose on Fri03/15/25 at 1400, Until Discontinued, Routine insulin lispro (Admelog) injection - Correction - Nighttime Dose 0-3 Units, Subcutaneous, 2 times nightly (2100 & 0300), First dose on Fri03/15/25 at 2100, Until Discontinued, Routine insulin regular (HumuLIN R,NovoLIN R) 100 UNIT/ML injection 5 Units 5 Units, Intravenous, Once, 1 dose, On Fri03/12/25 at 2205, RoutineIndications:Hyperkalemia Given 03/12/2025 10:51 PM EDT 5 Units ipratropium-albuterol (Duo-Neb) 0.5-2.5 mg/3 mL nebulizer solution 3 mL 3 mL, Nebulization, Every 6 hours RT, First dose on Fri03/13/25 at 0400, Until Discontinued, Routine Given 03/17/2025 9:10 AM EDT 3 mL Given 03/17/2025 3:24 AM EDT 3 mL Given 03/16/2025 9:37 PM EDT 3 mL ipratropium-albuterol (Duo-Neb) 0.5-2.5 mg/3 mL nebulizer solution 9 mL 9 mL, Nebulization, Once, 1 dose, On 03/12/25 at 2045, Routine Given 03/12/2025 8:45 PM EDT 9 mL levETIRAcetam (Keppra) 500 MG/5ML injection - Pyxis Override Pull 1 dose, Starting on 03/13/25 at 0404, Until 03/13/25 at 0617 levETIRAcetam (Keppra) injection 2,000 mg 2,000 mg, Intravenous, Once, 1 dose, On 03/13/25 at 0630, Routine Given 03/13/2025 6:17 AM EDT 2,000 mg levETIRAcetam (Keppra) injection 750 mg 750 mg, Intravenous, Every 12 hours, First dose on 03/13/25 at 0900, Until Discontinued, Routine Given 03/13/2025 8:06 AM EDT 750 mg levETIRAcetam (Keppra) tablet 750 mg 750 mg, Nasogastric, 2 times daily, First dose on 03/13/25 at 0900, Until Discontinued, Routine Given 03/14/2025 8:12 AM EDT 750 mg Given 03/13/2025 9:39 PM EDT 750 mg magnesium sulfate IVPB 2 g 2 g, Intravenous, Once, 1 dose, On 03/13/25 at 0245, Routine New Bag 03/13/2025 2:45 AM EDT 2 g 25 mL/hr mupirocin (Bactroban) 2 % ointment 1 Application Each Nostril, 2 times daily, 10 doses, First dose on 03/12/25 at 2200, Last dose on Fri03/17/25 at 0900, Routine Given 03/17/2025 8:34 AM EDT 1 Application Given 03/16/2025 9:56 PM EDT 1 Application Given 03/16/2025 8:06 AM EDT 1 Application pantoprazole (Protonix) EC tablet 40 mg 40 mg, Oral, Daily, First dose on Fri03/15/25 at 0900, Until Discontinued, Routine Given 03/17/2025 8:34 AM EDT 40 mg Given 03/16/2025 8:06 AM EDT 40 mg Given 03/15/2025 8:13 AM EDT 40 mg pantoprazole (Protonix) injection 40 mg 40 mg, Intravenous, Daily, First dose (after last modification) on Fri03/12/25 at 2105, Until Discontinued, STAT Given 03/12/2025 9:06 PM EDT 40 mg polyethylene glycol (Miralax) packet 17 g 17 g, Nasogastric, Daily, First dose on Fri03/13/25 at 0900, Until Discontinued, Routine Given 03/14/2025 8:12 AM EDT 17 g Given 03/13/2025 8:07 AM EDT 17 g polyethylene glycol (Miralax) packet 17 g 17 g, Oral, Daily, First dose (after last modification) on Fri03/15/25 at 0900, Until Discontinued, Routine propofol (Diprivan) infusion 10 mg/mL 10-50 mcg/kg/min 113 kg (6.78-33.9 mL/hr), Intravenous, Titrated, Starting on Fri03/12/25 at 2045, Until Fri03/14/25 at 1243, Routine New Bag 03/14/2025 6:27 AM EDT 10 mcg/kg/min 6.78 mL/hr Rate/Dose Verify 03/14/2025 6:00 AM EDT 20 mcg/kg/min 13.5 6 mL/hr Rate/Dose Verify 03/14/2025 5:00 AM EDT 20 mcg/kg/min 13.5 6 mL/hr tamsulosin (Flomax) 24 hr capsule 0.4 mg 0.4 mg, Oral, Daily with dinner, First dose on Fri03/16/25 at 1800, Until Discontinued, Routine Given 03/16/2025 5:55 PM EDT 0.4 mg documented in this encounter Active and Recently Administered Medications Times are shown in EDT. Scheduled Medication Order 03/15/2025 03/16/2025 03/17/2025 allopurinol (Zyloprim) tablet 100 mg 100 mg, Oral, Daily, First dose on Fri03/16/25 at 1200, Until Discontinued, Routine 1153 (Given - Provider: Shaista Guzman RN) 0834 (Given - Provider: Shaista Guzman, GABRIEL) amitriptyline (Elavil) tablet 25 mg 25 mg, Oral, Nightly, First dose (after last modification) on Fri03/15/25 at 2100, Until Discontinued, Routine 2038 (Given - Provider: Casie Street) 2153 (Given - Provider: Becka Odom) amLODIPine (Norvasc) tablet 5 mg 5 mg, Oral, Daily, First dose on Fri03/16/25 at 0900, Until Discontinued, Routine 08 (Given - Provider: Shaista Guzman RN) 0834 (Given - Provider: Shaista Guzman RN) aspirin chewable tablet 81 mg 81 mg, Oral, Daily, First dose (after last modification) on Fri03/15/25 at 0900, Until Discontinued, Routine 0807 (Given - Provider: Shellie Casarez RN) 0806 (Given - Provider: Shaista Guzman RN) 0834 (Given - Provider: Shaista Guzman RN) atorvastatin (Lipitor) tablet 20 mg 20 mg, Oral, Nightly, First dose (after last modification) on Fri03/15/25 at 2100, Until Discontinued 2028 (Given - Provider: Casie Street) 2153 (Given - Provider: Becka Odom) cefTRIAXone (Rocephin) 2 g in sodium chloride 0.9% 100 mL IVPB (vial adapter required) (COMPLETED) 2 g, Intravenous, Every 24 hours, 5 doses, First dose on Fri03/12/25 at 2300, Last dose on Fri03/16/25 at 1800, Routine 2326 (New Bag - Provider: Casie Street) 1755 (New Bag - Provider: Shaista Guzman RN) enoxaparin (Lovenox) syringe 40 mg 40 mg, Subcutaneous, Daily, First dose on Fri03/16/25 at 1300, Until Discontinued, Routine 1307 (Given - Provider: Shaista Guzman RN) 0833 (Given - Provider: Shaista Guzman RN) gabapentin (Neurontin) capsule 300 mg 300 mg, Oral, 2 times daily, First dose (after last modification) on Fri03/15/25 at 0900, Until Discontinued 0807 (Given - Provider: Shellie Casarez RN)2030 (Given - Provider: Casie Street) 0806 (Given - Provider: Shaista Guzman RN)2154 (Given - Provider: Becka Odom) 0834 (Given - Provider: Shaista Guzman RN) heparin (porcine) injection 5,000 Units (CANCELED) 5,000 Units, Subcutaneous, Every 8 hours scheduled, First dose on Fri03/13/25 at 0900, Until Discontinued, Routine 0626 (Given - Provider: Heraclio Gomez RN)1334 (Given - Provider: Shellie Casarez RN)2240 (Given - Provider: Casie Street) 0607 (Given - Provider: Ying Patrick RN) insulin lispro (Admelog) 100 units/mL injection - Correction - Standard Dose 0-5 Units, Subcutaneous, 3 times daily with meals, First dose on Fri03/15/25 at 1400, Until Discontinued, Routine 1306 (Not Given - Provider: Shellie Casarez RN - Reason: Order parameters not met - Comment: BG 101)1804 (Not Given - Provider: Shellie Casarez RN - Reason: Order parameters not met - Comment: BG 98) 0854 (Not Given - Provider: Shaista Guzman RN - Reason: Order parameters not met - Comment: Bg 103)1245 (Not Given - Provider: Shaista Guzman RN - Reason: Order parameters not met - Comment: bg less than 150)1751 (Not Given - Provider: Shaista Guzman RN - Reason: Order parameters not met - Comment: bg 107) 0835 (Not Given - Provider: Shaista Guzman RN - Reason: Order parameters not met - Comment: bg 99)1230 (Canceled Entry - Provider: Automatic Discharge Provider - Comment: Automatically canceled at discontinue of medication order) insulin lispro (Admelog) injection - Correction - Nighttime Dose 0-3 Units, Subcutaneous, 2 times nightly (2100 & 0300), First dose on Fri03/15/25 at 2100, Until Discontinued, Routine 2032 (Not Given - Provider: Casie Street - Reason: Order parameters not met - Comment: blood sugar 107) 0552 (Not Given - Provider: Ying Patrick RN - Reason: Order parameters not met - Comment: [id number])2108 (Not Given - Provider: Becka Odom - Reason: Order parameters not met - Comment: Order parameters not met) 0323 (Not Given - Provider: Becka Odom - Reason: Order parameters not met - Comment: Order parameters not met) ipratropium-albuterol (Duo-Neb) 0.5-2.5 mg/3 mL nebulizer solution 3 mL 3 mL, Nebulization, Every 6 hours RT, First dose on Fri03/13/25 at 0400, Until Discontinued, Routine 0334 (Given - Provider: Amanda Abdullahi)0801 (Given - Provider: Anupam Hhan)151 (Given - Provider: Anupam Hahn)203 (Given - Provider: Amanda Abdullahi) 0540 (Not Given - Provider: Rahul Hloder - Reason: Unreviewed Transfer Orders)0841 (Given - Provider: Kylie Vick)151 (Given - Provider: Kylie Vick)213 (Given - Provider: Joaquina Clark) 0324 (Given - Provider: Joaquina Clark)0910 (Given - Provider: Saqib Iqbal) mupirocin (Bactroban) 2 % ointment 1 Application (COMPLETED) Each Nostril, 2 times daily, 10 doses, First dose on 03/12/25 at 2200, Last dose on Viviane 03/17/25 at 0900, Routine 0807 (Given - Provider: Shellie Casarez RN)2029 (Given - Provider: Casie Street) 08 (Given - Provider: Shaista Guzman, GABRIEL)215 (Given - Provider: Becka Odom) 0834 (Given - Provider: Shaista Guzman, GABRIEL) pantoprazole (Protonix) EC tablet 40 mg 40 mg, Oral, Daily, First dose on Fri03/15/25 at 0900, Until Discontinued, Routine 0813 (Given - Provider: Shellie Casarez RN) 0806 (Given - Provider: Shaista Guzman, GABRIEL) 0834 (Given - Provider: Shaista Guzman, GABRIEL) polyethylene glycol (Miralax) packet 17 g 17 g, Oral, Daily, First dose (after last modification) on Fri03/15/25 at 0900, Until Discontinued, Routine 0808 (Not Given - Provider: Shellie Casarez RN - Reason: Patient/family refused) 0805 (Not Given - Provider: Shaista Guzman RN - Reason: Patient/family refused) 0835 (Not Given - Provider: Shaista Guzman RN - Reason: Patient/family refused) tamsulosin (Flomax) 24 hr capsule 0.4 mg 0.4 mg, Oral, Daily with dinner, First dose on Fri03/16/25 at 1800, Until Discontinued, Routine 1755 (Given - Provider: Shaista Guzman, GABRIEL) PRN Medication Order 03/15/2025 03/16/2025 03/17/2025 dextrose 50 % solution 12.5-25 g(Linked Group 1) 12.5-25 g, Intravenous, Every 15 min PRN, Starting on 03/12/25 at 2154, Until Viviane 03/17/25 at 1350, Routine, low blood sugar 0450 (Canceled Entry - Provider: Heraclio Gomez RN)0451 (Given - Provider: Heraclio Gomez RN) glucagon (human recombinant) injection 1 mg(Linked Group 1) 1 mg, Intramuscular, Every 15 min PRN, Starting on 03/12/25 at 2154, Until Viviane 03/17/25 at 1350, Routine, low blood sugar per Hypoglycemia Prevention and Treatment protocol 0450 (See Alternative - Provider: Heraclio Gomez RN)0451 (See Alternative - Provider: Heraclio Gomez RN) glucose (Glutose) 40 % oral gel 15-30 grams of glucose(Linked Group 1) 15-30 grams of glucose, Sublingual, Every 15 min PRN, Starting on 03/12/25 at 2154, Until Viviane 03/17/25 at 1350, Routine, low blood sugar, per Hypoglycemia Prevention and Treatment protocol 0450 (See Alternative - Provider: Heraclio Gomez RN)0451 (See Alternative - Provider: Heraclio Gomez RN) HYDROcodone-acetaminophen (Dolores) 5-325 MG per tablet 10 mg of hydrocodone 10 mg of hydrocodone, Oral, Every 6 hours PRN, Starting on 03/14/25 at 1731, Until Viviane 03/17/25 at 1350, Routine, moderate pain 2154 (Given - Provider: Becka Odom) Linked Groups Order Group 1: glucose (Glutose) 40 % oral gel 15-30 grams of glucoseJump to med 15-30 grams of glucose, Sublingual, Every 15 min PRN, Starting on 03/12/25 at 2154, Until Viviane 03/17/25 at 1350, Routine, low blood sugar, per Hypoglycemia Prevention and Treatment protocol Or dextrose 50 % solution 12.5-25 gJump to med 12.5-25 g, Intravenous, Every 15 min PRN, Starting on 03/12/25 at 2154, Until Viviane 03/17/25 at 1350, Routine, low blood sugar Or glucagon (human recombinant) injection 1 mgJump to med 1 mg, Intramuscular, Every 15 min PRN, Starting on 03/12/25 at 2154, Until Viviane 03/17/25 at 1350, Routine, low blood sugar per Hypoglycemia Prevention and Treatment protocol documented in this encounter Additional Health Concerns Infection Onset Date Last Indicated Resolved Time COVID-19 Rule-Out 03/12/2025 03/12/2025 03/12/2025 10:09 PM EDT Respiratory Rule-Out 03/12/2025 03/12/2025 025 1:10 AM EDT Tuberculosis Rule-Out Comment:Per Epic chat with Lay Clark, DO on 03/15/25 @ 2242, there is no concern for TB. - Grover Waite 03/13/2025 03/13/2025 03/13/2025 11:31 AM EDT Assessment Noted Time A fall risk assessment has been complete d for the patient 04/07/2024 2:13 PM EDT A Body Mass Index follow-up plan has been documented for the patient 03/17/2025 11:22 AM EDT documented as of this encounter Care Teams Car Repairman Relationship Specialty Start Date End Date Joycelyn Montes PA [address] [place] [address] PCP - General 04/01/23 documented as of this encounter
--- OUTSIDE RECORDS SUMMARY | 2025-03-12 20:41 | XMS_ITS | Encounter Summary ---
Author Organization [facility] Address [address] [place] [address] Care Team Providers Care Construction Quality Control Manager Name Role Phone Joycelyn Montes PANKAJ Primary Care Provider [phone] Reason for Referral * Consultation (Routine) - Authorized Specialty Diagnoses / Procedures Referred By Jarod rod Referred To Contact Family Medicine Diagnoses Acute hypoxic respiratory failure Pneumonia of right lung due to infectious organism, unspecified part of lung Lung mass Pulmonary emphysema, unspecified emphysema type (CMS/HCC) Small cell carcinoma of right lung, unspecified part of lung Bernardo Chavez MD [address] [place] [address] Phone: tel: fax: Referral ID Status Reason Start Date Expiration Date V isits Requested Visits Authorized [id number] Authorized 03/17/2025 09/16/2026 1 1 * Home Health (Routine) - Authorized Specialty Diagnoses / Procedures Referred By Jarod rod Referred To Contact Home Health Services Diagnoses Acute hypoxic on chronic hypercapnic respiratory failure Bernardo Chavez MD [address] [place] [address] Phone: tel: fax: Referral ID Status Reason Start Date Expiration Date Visits Requested Visits Authorized [id number] Authorized Specialty Services Required 03/16/2025 09/15/2026 999 999 Reason for Visit * Reason Comments Shortness of Breath * Auth/Cert (Routine) Specialty Diagnoses / Procedures Referred By Contac t Referred To Contact Diagnoses Pneumonia of right lung due to infectious organism, unspecified part of lung Acute hypoxic respiratory failure Acute hypoxic on chronic hypercapnic respiratory failure Pneumonia Mariah Mcgowan MD [address] [place] [address] Phone: tel: fax: PAV A Inpatient [address] [place] [address] Referral ID Status Reason Start Date Expiration Date Visits Re quested Visits Authorized [id number] 1 1 Encounter Details Date Type Department Care Team (Late st Contact Info) Description 03/12/2025 8:41 PM EDT - 03/17/2025 11:49 AM EDT Hospital Encounter PAV A Inpatient [address] [place] [id number] Staci Jones MD [address] [place] [address] Mariah Mcgowan MD [address] [place] [address] Gt De La Paz MD [address] [place] [address] Delfino Aceves MD [address] [place] [address] Enrrique Duque MD [address] [place] [address] Bernardo Chavez MD [address] [place] [address] Pneumonia of right lung due to infectious organism, unspecified part of lung (Primary Dx); Acute hypoxic respiratory failure; Acute hypoxic on chronic hypercapnic respiratory failure; Lung mass; Pulmonary emphysema, unspecified emphysema type (CMS/HCC); Small cell carcinoma of right lung, unspecified part of lung Discharge Disposition: Home-Health Care [facility] Social History Tobacco Use Types Packs/Day Years [...] and Family Not on file 03/15/2025 Attends Gnosticist Services Not on file 03/15 Active Member [...] any time in the past 12 m [facility], were you homeless or living in a long term (including now)? No 03/15/2025 Utilities Answer Date [...] 4 times a day. 03/16/2024 HYDROcodone-acet aminophen (Lincoln) 10-325 MG tablet Take 1 tablet by [...] from the original note were not included. [id number] Learning About Respiratory Failure What is respiratory [...] this instruction, always ask your healthcare professional. [employer] disclaims any warranty or liability for your use of this information. ?? [id number] [employer]. * Progress Notes - Laurie Laguna - 03/17/2025 10:51 AM EDT Case Management Discharge Note Last Santos 74 y.o. male CSN: [id number] Admission: 03/12/2025 8:41 PM Primary Problem: Acute hypoxic on chronic hypercapnic respiratory failure Primary Arabic Linguist: Primary Caregiver: Self Assistance Available at Discharge: Availability of Care Givers (#Hours): 24 hours (Spouse available as needed.) Family/Arabic Linguist(s) Willingness Assessed to care for patient at [...] placed copy in patients chart [facility] [address] [facility] [address], [place] [address] Follow up Provider for DME- Home Oxygen and Rolling Walker, Portable tank to be delivered to bedside prior todischarge. Syeda from [facility] will call Spouse to see if they want RW delivered to bedside or home. [facility] [employer]. [address] [place] [address], [facility] [address] [place] [address] Follow up Provider for Home Health SN for post hospital assessment and medication review, PT/OT to evaluate and treat. They will call you to schedule initial visit. Please call them with any questions- [phone] Francisco Lynn MD [address] [place] [address] [place] [address] Discharge Transportation: Transportation Anticipated: family or friend [...] PCP name and Address: Joycelyn Montes PA [address] [facility] [address] Referring provider name and address: Francisco Lynn MD [address] [place] [address] [place] [address] Chief Concern, Brief History of Present Illness, and Hospital Course Last Santos is a 74 y.o. male w/ relevant hx of CAD (s/p inferior IN), COPD(no home O2), BPH,HTN, HLD, DM2, recent diagnosis of small cell lung cancer (diagnosed Feburary, RUL hypermetabolic nodule, R peritracheal and hilar adenopathy) who presented to OSH for acute hypoxic respiratory failure requiring intubation. He was treated for PNA, extubated 03/15, and weaned to 3-4L NC on day of discharge. HH PT/OT set up with home oxygen. [facility] consulted to discuss treatment options and patient continued to decline them. #AHRF req MV (s/p extubation) 2/ PNA, resolving #Stage III Small Cell Lung Cancer - Biopsy results are in media tab--small cell lung cancer - Was reportedly supposed to undergo chemotherapy and radiation treatment with local oncologist in [place] (Liz Bryan) but declined treatment- takes Ivermectin [...] HYDROcodone-acetaminophen 10-325 MG tablet Commonly known as: Lincoln Take 1 tablet by mouth every 6 [...] Your Medications These medications were sent to [facility] [place], [place] - [address] [facility] [address] tiotropium 18 MCG inhalation capsule Information about [...] Note Last Santos 74 y.o. male CSN: [id number] Admission: 03/12/2025 8:41 PM Primary Problem: Acute hypoxic on chronic hypercapnic respiratory failure Anticipated Discharge Date: Potentially tomorrow, pending progress. Has Discharge Plans Changed? No Additional Comments: Per MD during morning Team meeting, patient could potentially be ready for discharge tomorrow, pending progress. PT/OT recommendations are HH PT/PT, DME- Rolling Walker. Patient choice for DME provider is [facility]. CM sent order and referral for RW via fax: [phone],Attn- Syeda. CM also sent referral for HH: [...] w/ relevant hx of CAD (s/p inferior IN), COPD(no home O2), BPH,HTN, HLD, DM2, recent [...] and radiation treatment with local oncologist in [place] (Liz Bryan) but declined treatment- takes Ivermectin [...] not currently on treatment, CAD s/p inferior [place] in 2007, COPD not on home oxygen, [...] Emergency Contact: CRYSTAL SANTOS Mobile Relation: Spouse Transmission Inspector needed? No Patient's HCPOA: is same as [...] hyperlipidemia, type 2 diabetes who presented from [facility] for acute hypoxic respiratory failure requiring intubation [...] pulmonary disease) with emphysema (CMS/HCC) (03/15/2025), Diabetes ([facility]), Diastolic dysfunction (03/15/2025), Essential hypertension (01/03/2016), High blood pressure, History of heart artery stent (03/15/2025), History of myocardial infarction (01/03/2016), Hyperlipidemia (01/03/2016), Impingement syndrome, shoulder, left (03/15/2025), Knee pain (01/03/2016), and Myocardial infarction ([facility]). Surgical History He has a past [...] 2:34 AM Relevant Results Non-Gynecologic Cytology, Fluid: [id number] Order: [id number] Collected 03/13/2025 11:34 Status: Final result Test [...] case of any questions or concerns. Fabi Rihcter MD Fellow, PGY4 [facility] [phone] [1] Current Facility-Administered Medications Medication Dose Route [...] MD 5,000 Units at 03/15/25 1334 HYDROcodone-acetaminophen (Lincoln) 5-325 MG per tablet 10 mg of [...] has a past medical history of Diabetes ([facility]), High blood pressure, and Myocardial infarction ([facility]). Past Surgical History Patient has a past surgical history that includes Skin cancer excision (2020); Cardiac catheterization; and Coronary stent placement (2009). Precautions Medical Precautions: Fall precautions Subjective Pt agreeable to PT initial evaluation. Participants in Care Family/Caregiver Present: No Presentation Oxygen Therapy: Supplemental oxygen O2 Delivery Method: High flow nasal cannula (switched to NRB for mobility in critical access hospital, per RN; pt returned to [facility] at end of session) FiO2 (%): 50 [...] admission Level of Mobility: Ambulatory- community Mobility [place]: Independent gait without device History of Falls: [...] postioning. Bed Mobility Exam: Rolling/Turning Level of [place]: Stand-by assist Physical/Nonphysical Assist: Supervision, Verbal Cues Assistive Device: Bed rails Bed Mobility Exam: Scooting/Bridging Level of [place]: Contact guard (to scoot forward while seated at EOB) Physical/Nonphysical Assist: Verbal Cues, Minimal cues Bed Mobility Exam: Supine to Sit Level of [place]: Contact guard Physical/Nonphysical Assist: Verbal Cues, Minimal cues Assistive Device: Bed rails Transfers Transfer Interventions: Pt required cues for hand placement to push up to stand, midline awareness upon initial stand, body positioning prior to sitting, and reaching back prior to sitting. Transfer Exam: Sit to stand Level of [place]: Minimum assist (75% patient's effort) (min assist x1 rep from bed, CGA x1 rep from chair and x1 rep from BSC) Physical/Nonphysical Assist: Verbal Cues, Minimal cues, 1 person + 1 person to manage equipment Assistive Device: Walker, rolling Transfer Exam: Stand to Sit Level of [place]: Contact guard (x3 reps) Physical/Nonphysical Assist: Verbal [...] independence. Standardized Assessments Standardized Assessments Standardized Assessments: [facility] 6-Clicks Mobility Assessment [facility] 6-Clicks Mobility Assessment Difficulty patient has turning [...] 3-5 steps with a railing?: A lot [facility] 6-Clicks Mobility Assessment Total : 18 Assessment [...] has a past medical history of Diabetes ([facility]), High blood pressure,and Myocardial infarction ([facility]). 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 Level of [place] Adaptive Equipment Utilized Interventions Feeding Grooming Setup [...] encouraged to mobilize in hallway with staffing coordinator to promote tolerance to return to prior level of functioning. BED MOBILITY Level of [place] Physical/Non- physical Assist Adaptive Equipment Utilized Rolling/ Turning Stand-by assist Supervision, Verbal Cues Bed rails Scooting/ Bridging Contact guard (to scoot forward while seated at EOB) Verbal Cues, Minimal cues Supine to Sit Contact guard Verbal Cues, Minimal cues Bed rails Sit to Supine TRANSFERS Level of [place] Physical/Non- physical Assist Adaptive Equipment Utilized Sit [...] Bed to Chair Shower Transfer STANDARDIZED ASSESSMENTS [facility] 6-Click Daily Activities Help from Other: Don/Doff Regular Lower Body Clothings: A lot Help From Other: Bathing: A lot Help From Other: Toileting: Little Help From Other: Don/Doff Upper Body Clothings: None Help From Other: Grooming: None Help From Other: Eating Meals: None [facility] 6 Click - Daily Activities Score: 19 [...] Note Last Santos 74 y.o. male CSN: [id number] Admission: 03/12/2025 8:41 PM Primary Problem: Acute hypoxic on chronic hypercapnic respiratory failure Customer Support Agent reviewed chart and spoke with patient's spouse at bedside to complete this Initial Case Management Assessment. PCP: Levar Davison MD ([phone]) Pharmacy- [facility] Emergency Contact: Extended Emergency Contact Information Primary Emergency Contact: CRYSTAL SANTOS Mobile Relation: Spouse Transmission Inspector needed? No Insurance: Primary Visit Coverage Payer Plan Sponsor Code Group Number Group Name ANTHEM MEDICARE ANTHEM SENIOR ADVANTAGE [id number] Primary Visit Coverage Subscriber Subscriber ID Subscriber Name Subscriber SSN Subscriber Address [id number] LAST SANTOS [id number] [address] [facility] [place] [address] Patient information: Primary Caregiver: Self Accompanied by/Relationship: spouse - Crystal Support System: Immediate family Daily Living Activities: Functional Status: Independent Living Arrangements: Spouse/Significant other Type of Residence: Private residence, Single Level [address] [place] [address] Current DME: Equipment Currently Used at Home: [...] Dialysis Services: NA Living Will/Advance Directive/Power of Problem Manager /Guardian: NA - MARYCRUZ-Crystal Santos Additional Comments: Patient admitted from [facility] with acute hypoxic respiratory failure, pulmonary mass [...] CM will continue to follow. Nasra Adkins, [facility]ANK SECRECY ACT OFFICER * Progress Notes - Nasra Adkins - 03/15/2025 9:31 AM EDT Case Management Adult Progress Note Last Santos 74 y.o. male CSN: [id number] Admission: 03/12/2025 8:41 PM Primary Problem: Acute [...] Friends and Family: Not on file Attends Gnosticist Services: Not on file Active Member of Clubs or Organizations: Not on file Attends Club or Organization Meetings: Not on file Marital Status: Financial Resource Strain: Medium Risk (03/15/2025) Overall Financial Resource Strain (CARDIA) Difficulty of Paying Living Expenses: Somewhat hard Nasra Adkins [facility] SECREC[employer] ACT OFFICER * Care Plan - Shellie Casarez RN [...] Note Last Santos 74 y.o. male CSN: [id number] Room/Bed 211/211A Nutrition evaluation type: follow-up Reason [...] 35.18 Weight Evaluation: Obese-Class 2 (BMI 35-39.9) [place] Body Weight (kg): 72.7 Percent [place] Body Weight: 150 Adjusted Body Weight (kg): 81.5 Estimated Needs: Kcal/ K-25 Kcal Provided: 1550-9431 Kcal Needs Based On: Adjusted weight Gm Protein/ Kg : 1.2-1.5 Protein Provided: 98-123 Protein Needs Based On: Adjusted weight ML/ Kg: - Metabolic Cart Study Results: Current Nutrition Intake: Diet Supplements: None Diet Order: NPO Diet Experience and Nutrition History: Diet Education Provided: Will monitor Pertinent home medications: Gnosticist needs: Nutrition Focused Physical Exam: Physical exam [...] yo M with PMH CAD (s/p inferior IN), COPD(no home O2), BPH, HTN, HLD, DM2, [...] and radiation treatment with local oncologist in [place] (Liz Bryan) but declined treatment- takes Ivermectin [...] yo M with PMH CAD (s/p inferior IN), COPD(no home O2), BPH, HTN, HLD, DM2, [...] and radiation treatment with local oncologist in [place] (Liz Bryan), however patient wished to wait [...] to get records from primary oncologist in [place] - MRI brain w/ and w/o [...] Note Last Santos 74 y.o. male CSN: [id number] Room/Bed 211/211A Nutrition evaluation type: assessment Reason [...] Supplemental oxygen O2 Delivery Method: Mechanical ventilator [place] Coma Scale Score: 6 Chandan/Cubbin Pressure Risk [...] 35.6 Weight Evaluation: Obese-Class 2 (BMI 35-39.9) [place] Body Weight (kg): 72.7 Percent [place] Body Weight: 150 Estimated Needs: Kcal/ K-14 Kcal Provided: 7958-3356 Kcal Needs Based On: Current weight Gm Protein/ Kg : 2+ Protein Provided: 145+ Protein Needs Based On: [place] weight ML/ Kg: Per team or 1 mL/kcal Metabolic Cart Study Results: Current Nutrition Intake: Diet Supplements: None Diet Order: NPO Diet Experience and Nutrition History: Diet Education Provided: Will monitor Pertinent home medications: Gnosticist needs: Nutrition Focused Physical Exam: Unable to Complete Exam: Weekend coverage Physical exam performed on (date): Assessment of Malnutrition: Malnutrition Identified: Additional Information Needed Nutrition Problem: Inadequate oral intake related to MV as evidenced by NPO. Status of Nutrition Diagnosis: New Nutrition Interventions and Recommendations: PO per FACIALIST/primary TF recs if warranted: Peptamen Intense VHP [...] [1] Past Medical History: Diagnosis Date Diabetes ([facility]) High blood pressure Myocardial infarction (CMS/HCC) [2] [...] yo M with PMH CAD (s/p inferior IN), COPD(no home O2), BPH, HTN, HLD, DM2, [...] and radiation treatment with local oncologist in [place] (Liz Bryan), however patient wished to wait [...] to get records from primary oncologist in [place] - MRI brain w/ and w/o [...] w/ relevant hx of CAD (s/p inferior IN), COPD(no home O2), BPH,HTN, HLD, DM2, recent diagnosis of small cell lung cancer (diagnosed Feburary, RUL hypermetabolic nodule, R peritracheal and hilar adenopathy) who presented to OSH for acute hypoxic respiratory failure requiring intubation. He was treated for PNA, extubated 03/15, and weaned to 3-4L NC on day of discharge. HH PT/OT set up with home oxygen. [facility] consulted to discuss treatment options and patient continued to decline them. #AHRF req MV (s/p extubation) 2/2 PNA, resolving #Stage III Small Cell Lung Cancer - Biopsy results are in media tab--small cell lung cancer - Was reportedly supposed to undergo chemotherapy and radiation treatment with local oncologist in [place] (Liz Bryan) but declined treatment- takes Ivermectin [...] w/ significant PMHx of CAD s/p inferior [place] in 2007, COPD not onhome oxygen, BPH, HTN, HLD, T2DM complicated by peripheral neuropathy who presents from [facility] for acute hypoxic respiratory failure requiring intubation [...] each morning. 03/16/24 Rosie Elizondo MD HYDROcodone-acetaminophen ([place]incoln) 10-325 MG tablet Take 1 tablet (10 [...] and radiation treatment with local oncologist in [place] (Liz Bryan), however patient wished to wait [...] to get records from primary oncologist in [place] - MRI brain w/ and w/o ordered [...] mouth 1 (one) time each morning. HYDROcodone-acetaminophen ([place]incoln) 10-325 MG tablet Take 1 tablet (10 [...] evaluated the [facility] with the [facility]- visual support as available. I [...] Daily Order ID Start Status Ordering Provider [id number] 03/13/25 0800 Acknowledged THE, STACI S 03/14/25 [...] Continuous Order ID Start Status Ordering Provider [id number] 03/12/252102 Completed THE, STACI S [id number] 03/13/25799 Acknowledged THE, STACI S [id number] 03/13/251999 Acknowledged THE, STACI S 03/14/25799 Scheduled THE, STACI S 03/14/251999 Scheduled THE, STACI S 03/15/25799 Scheduled THE, STACI S 03/15/251999 Scheduled THE, STACI S 03/16/25799 Scheduled THE, STACI S 03/16/251999 Scheduled THE, STACI S Acknowledged THE, STACI S 03/12/252101 End Tidal co2 Monitoring Continuous Order ID Start Status Ordering Provider [id number] 03/12/252102 Acknowledged THE, STACI S [id number] 03/13/25799 Acknowledged THE, STACI S [id number] 03/13/251999 Acknowledged THE, STACI S 03/14/25799 Scheduled [...] integrityUntil discontinued Acknowledged THE, STACI S 03/12/252101 [place] teeth every 12 hours Until discontinued Acknowledged [...] Completed REGLATATE 03/12/252047 Methemoglobin Once Final result [facility] 03/12/252047 Initiate contact isolation Continuous [...] and Legionella Urinary Antigen Once In process [facility] 03/12/252045 Methicillin Resistant Staphylococcus aureus (MRSA) by PCR Once In process [facility] 03/12/252045 STAT Canceled [facility] 03/12/252045 Nasopharyngeal Respiratory Panel Once In process [facility] 03/12/252045 SARS CoV-2/COVID-19 by PCR - Rapid PROCEDURE ONCE In process [facility] 03/12/252045 Procalcitonin STAT In process [facility] 03/12/252045 Hepatitis C Antibody - ED Once In process [facility] 03/12/252045 ED Protocol - HIV 1/2 Antibody/Antigen Screen Once In [facility] 03/12/252045 ED HIV 1/2 Antibody/Antigen Screen w/Reflex to HIV 1/2 Differentiation PROCEDURE ONCE In process [facility] 03/12/252045 CMP STAT In [facility] 03/12/252045 Magnesium STAT In [facility] 03/12/252045 Troponin now and 120 min STAT In process [facility] 03/12/252045 STAT Canceled [facility] 03/12/252042 ICU Target Pain Score Until discontinued Comments: Initiate and titrate analgesia to attain goal CPOT first prior to initiating sedation unless otherwise ordered. Goal is to provide adequate pain management prior to initiating sedative agents. Target consistent patient goal CPOT as ordered. Document CPOT per nursing policy prior to and following PRN dosing and with any changes in infusionrate. Acknowledged [facility] 03/12/252042 Target arousal level: Until discontinued [...] Physician: MARIAH MCGOWAN [[id number]] Provider Care Team: [facility] MICU 2 [88] Are they [...] so intubated prior to transfer. 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, Lung [...] UNSOLICITED RESULTS Routine 03/14/2025 12:03 PM EDT [facility], E/M 30-74 MINUTES Routine 03/14/2025 [...] CO2 MONITORING Routine 03/13/2025 8:00 AM EDT [facility], E/M 30-74 MINUTES Routine 03/13/2025 [...] UNSOLICITED RESULTS Routine 03/12/2025 8:41 PM EDT [facility], ADDL 30 MIN Routine 03/12/2025 8:41 PM EDT documented in this encounter Results * POCT glucose meter (03/17/2025 8:31 AM EDT) POCT Glucose 99 74 - 99 mg/dL 03/17/2025 8:33 AM EDT [facility] Comment:Accuracy of a glucos e result [...] 03/17/2025 8:33 AM EDT [facility] Environmental Health And Safety Leader ID Lindsey Zamora 03/17/2025 8:33 AM EDT HEALTHCARE LAB Device ID [id number] 03/17/2025 8:33 AM EDT [facility] Specimen Type POC Capillary 03/17/2025 8:33 AM EDT [facility]ALTHCARE [facility] Blood Capillary blood specimen / Unknown 03/17/2025 8:31 AM EDT 03/17/2025 8:33 AM EDT us Bernardo Chavez MD LAB POINT OF CARE TE ST DOCKED DEVICE UNSOLICITED RESULTS Final Result [facility] [address] [place] [address] * (ABNORMAL) Basic metabolic panel (03/17/2025 5:29 [...] [facility] [address] [place] [address] * (ABNORMAL) CBC W/O Differential (03/17/2025 5:29 AM EDT) [facility] Signature WBC Count 7.19 3.70 - [...] [facility] [address] [place] [address] * (ABNORMAL) Blood gas panel, venous (03/17/2025 [...] Result [facility] [address] [place] [address] * POCT glucose meter (03/16/2025 7:58 PM EDT) [facility] POCT Glucose 97 74 - 99 [...] Comment 03/16/2025 8:00 PM EDT HEALTHCARE LAB Environmental Health And Safety Leader ID WinklerJennifer 03/16/2025 8:00 PM EDT HEALTHCARE LAB Device ID [id number] 03/16/2025 8:00 PM EDT [facility] Specimen Type POC Capillary 03/16/2025 8:00 PM EDT [facility] Blood Capillary blood specimen / Unknown 03/16/2025 7:58 PM EDT 03/16/2025 8:00 PM EDT Bernardo Chavez MD LAB POINT OF CARE TE ST DOCKED DEVICE UNSOLICITED RESULTS Final Result Performing Organization Address City/[facility]/ZIP Co de Phone Number HEALTHCARE LAB [address] [place] [address] * (ABNORMAL) POCT glucose meter (03/16/2025 5:50 PM EDT) [facility] POCT Glucose 107(H) 74 - 99 [...] Comment 03/16/2025 5:51 PM EDT HEALTHCARE LAB Environmental Health And Safety Leader ID Constance Schrader 025 5:51 PM EDT HEALTHCARE LAB Device ID [id number] 03/16/2025 5:51 PM EDT HEALTHCARE LAB Specimen Type POC Capillary 03/16/2025 5:51 PM EDT [facility] LAB Blood Capillary blood specimen / Unknown 03/16/2025 5:50 PM EDT 03/16/2025 5:51 PM EDT us Bernardo Chavez MD LAB POINT OF CARE TE ST DOCKED DEVICE UNSOLICITED RESULTS Final Result Performing Organization Address City/[facility] Phone Number HEALTHCARE LAB [address] [place] [address] * (ABNORMAL) POCT glucose meter (03/16/2025 11:42 AM EDT) [facility] POCT Glucose 128(H) 74 - 99 [...] Comment 03/16/2025 11:44 AM EDT HEALTHCARE LAB Environmental Health And Safety Leader ID Constance Schrader 025 11:44 AM EDT HEALTHCARE LAB Device ID [id number] 03/16/2025 11:44 AM EDT HEALTHCARE LAB Specimen Type POC Capillary 03/16/2025 11:44 AM EDT HEALTHCARE LAB Blood Capillary blood specimen / Unknown 03/16/2025 11:42 AM EDT 03/16/2025 11:44 AM EDT us Bernardo Chavez MD LAB POINT OF CARE TE ST DOCKED DEVICE UNSOLICITED RESULTS Final Result [facility] [address] [place] [address] * (ABNORMAL) POCT glucose meter (03/16/2025 8:01 AM EDT) [facility] POCT Glucose 103(H) 74 - 99 [...] Comment 03/16/2025 8:02 AM EDT HEALTHCARE LAB Environmental Health And Safety Leader ID Constance Schrader 025 8:02 AM EDT HEALTHCARE LAB Device ID [id number] 03/16/2025 8:02 AM EDT HEALTHCARE LAB Specimen Type POC Capillary 03/16/2025 8:02 AM EDT HEALTHCARE LAB Blood Capillary blood specimen / Unknown 03/16/2025 8:01 AM EDT 03/16/2025 8:02 AM EDT Bernardo Chavez MD LAB POINT OF CARE TE ST DOCKED DEVICE UNSOLICITED RESULTS Final Result [facility] [address] [place] [address] * (ABNORMAL) Basic metabolic panel (03/16/2025 6:07 AM EDT) [facility] Glucose, Plasma 92 74 - 99 [...] ult [facility] [address] [place] [address] * (ABNORMAL) CBC W/O Differential (03/16/2025 6:07 [...] ult [facility] [address] [place] [address] * (ABNORMAL) Blood gas panel, venous (03/16/2025 [...] Result [facility] [address] [place] [address] * POCT glucose meter (03/16/2025 12:50 AM EDT) [facility] POCT Glucose 89 74 - 99 [...] Comment 03/16/2025 12:53 AM EDT HEALTHCARE LAB Environmental Health And Safety Leader ID Arlen Jackson 025 12:53 AM EDT HEALTHCARE LAB Device ID [id number] 03/16/2025 12:53 AM EDT HEALTHCARE LAB Specimen Type POC Capillary 03/16/2025 12:53 AM EDT HEALTHCARE LAB Blood Capillary blood specimen / Unknown 03/16/2025 12:50 AM EDT 03/16/2025 12:53 AM EDT us Delfino Aceves MD LAB POINT OF CARE TE ST DOCKED DEVICE UNSOLICITED RESULTS Final Result [facility] [address] [place] [address] * (ABNORMAL) POCT glucose meter (03/15/2025 11:33 PM EDT) [facility] POCT Glucose 109(H) 74 - 99 [...] Comment 03/15/2025 11:35 PM EDT HEALTHCARE LAB Environmental Health And Safety Leader ID Casie Street 03/15/2025 11:35 PM EDT HEALTHCARE LAB Device ID [id number] 03/15/2025 11:35 PM EDT HEALTHCARE LAB Specimen Type POC Capillary 03/15/2025 11:35 PM EDT HEALTHCARE LAB Blood Capillary blood specimen / Unknown 03/15/2025 11:33 PM EDT 03/15/2025 11:35 PM EDT us Delfino Aceves MD LAB POINT OF CARE TE ST DOCKED DEVICE UNSOLICITED RESULTS Final Result Performing Organization Address [facility] Co de Phone Number [facility] [address] [place] [address] * (ABNORMAL) POCT glucose meter (03/15/2025 8:33 PM EDT) [facility] POCT Glucose 107(H) 74 - 99 [...] Comment 03/15/2025 8:34 PM EDT HEALTHCARE LAB Environmental Health And Safety Leader ID Street Casie 03/15/2025 8:34 PM EDT HEALTHCARE LAB Device ID [id number] 03/15/2025 8:34 PM EDT HEALTHCARE LAB Specimen Type POC Capillary 03/15/2025 8:34 PM EDT HEALTH[facility]ARE LAB Blood Capillary blood specimen / Unknown 03/15/2025 8:33 PM EDT 03/15/2025 8:34 PM EDT Delfino Aceves MD LAB POINT OF CARE TE ST DOCKED DEVICE UNSOLICITED RESULTS Final Result Performing Organization Address [facility] Co de Phone Number [facility] [address] [place] [address] * POCT glucose meter (03/15/2025 5:58 PM EDT) [facility] POCT Glucose 98 74 - 99 [...] 03/15/2025 5:59 PM EDT [facility] Environmental Health And Safety Leader ID Shellie Casarez 05/20/2 025 5:59 PM EDT [facility] Device ID [id number] 03/15/2025 5:59 PM EDT HEALTHCARE LAB Specimen Type POC Capillary 03/15/2025 5:59 PM EDT HEALTHCARE LAB Blood Capillary blood specimen / Unknown 03/15/2025 5:58 PM EDT 03/15/2025 5:59 PM EDT Delfino Aceves MD LAB POINT OF CARE TE ST DOCKED DEVICE UNSOLICITED RESULTS Final Result Performing Organization Address City/[facility] Co de Phone Number [facility] [address] [place] [address] * (ABNORMAL) POCT glucose meter (03/15/2025 1:06 PM EDT) [facility] POCT Glucose 101(H) 74 - 99 [...] Comment 03/15/2025 1:07 PM EDT HEALTHCARE LAB Environmental Health And Safety Leader ID Shellie Casarez 025 1:07 PM EDT HEALTHCARE LAB Device ID [id number] 03/15/2025 1:07 PM EDT HEALTHCARE LAB Specimen Type POC Capillary 03/15/2025 1:07 PM EDT HEALTHCARE LAB Blood Capillary blood specimen / Unknown 03/15/2025 1:06 PM EDT 03/15/2025 1:07 PM EDT us Delfino Aceves MD LAB POINT OF CARE TE ST DOCKED DEVICE UNSOLICITED RESULTS Final Result Performing Organization Address City/[facility] Co de Phone Number HEALTHCARE LAB [address] [place] [address] * POCT glucose meter (03/15/2025 12:11 PM EDT) [facility] POCT Glucose 92 74 - 99 [...] 03/15/2025 12:12 PM EDT [facility] Environmental Health And Safety Leader ID Shellie Casarez 025 12:12 PM EDT [facility] Device ID [id number] 03/15/2025 12:12 PM EDT HEALTHCARE LAB Specimen Type POC Capillary 03/15/2025 12:12 PM EDT HEALTHCARE LAB Blood Capillary blood specimen / Unknown 03/15/2025 12:11 PM EDT 03/15/2025 12:12 PM EDT Delfino Aceves MD LAB POINT OF CARE TE ST DOCKED DEVICE UNSOLICITED RESULTS Final Result Performing Organization Address City/State/[facility] Co de Phone Number [facility] [address] [place] [address] * (ABNORMAL) POCT glucose meter (03/15/2025 6:29 AM EDT) [facility] POCT Glucose 111(H) 74 - 99 [...] 03/15/2025 6:31 AM EDT [facility] Environmental Health And Safety Leader ID Heraclio Gomez 03/15/2025 6:31 AM EDT [facility] Device ID [id number] 03/15/2025 6:31 AM EDT [facility] Specimen Type POC Capillary 03/15/2025 6:31 AM EDT HEALTHCARE LAB Blood Capillary blood specimen / Unknown 03/15/2025 6:29 AM EDT 03/15/2025 6:31 AM EDT us Delfino Aceves MD LAB POINT OF CARE TE ST DOCKED DEVICE UNSOLICITED RESULTS Final Result [facility] [address] [place] [address] * (ABNORMAL) Basic metabolic panel (03/15/2025 3:27 AM EDT) Glucose, Plasma 89 74 - 99 mg/dL 03/15/2025 4:08 AM EDT [facility] BUN, Plasma 35(H) 8 - 23 mg/dL 03/15/2025 4:08 AM EDT [facility] Creatinine, Plasma 1.75(H) 0.70 - 1.20 mg/dL 03/15/2025 4:08 AM EDT [facility] BUN/Creatinine Ratio 03/15/2025 4:08 AM EDT [facility] [address] [place] [address] * (ABNORMAL) CBC W/O Differential (03/15/2025 3:27 [...] [facility] [address] [place] [address] * (ABNORMAL) Blood gas panel, venous (03/15/2025 [...] [facility] [address] [place] [address] * (ABNORMAL) Blood gas panel, venous (03/14/2025 [...] t [facility] [address] [place] [address] * POCT glucose meter (03/14/2025 5:01 PM [...] Comment 03/14/2025 5:03 PM EDT HEALTHCARE LAB Environmental Health And Safety Leader ID Lewis Alejandre 025 5:03 PM EDT HEALTHCARE LAB Device ID [id number] 03/14/2025 5:03 PM EDT HEALTHCARE LAB Specimen Type POC Capillary 03/14/2025 5:03 PM EDT [facility] Blood Capillary blood specimen / Unknown 03/14/2025 5:01 PM EDT 03/14/2025 5:03 PM EDT us Delfino Aceves MD LAB POINT OF CARE TE ST DOCKED DEVICE UNSOLICITED RESULTS Final Result [facility] [address] [place] [address] * (ABNORMAL) Blood gas panel, venous (03/14/2025 [...] t [facility] [address] [place] [address] * EEG (03/14/2025 1:31 PM EDT) Anatomical [...] POCT glucose meter (03/14/2025 12:03 PM EDT) [facility] POCT Glucose 90 74 - 99 [...] 03/14/2025 12:05 PM EDT [facility] Environmental Health And Safety Leader ID Lewis Alejandre Geovanna 025 12:05 PM EDT [facility] Device ID [id number] 03/14/2025 12:05 PM EDT HEALTHCARE LAB Specimen Type POC Capillary 03/14/2025 12:05 PM EDT HEALTHCARE LAB Blood Capillary blood specimen / Unknown 03/14/2025 12:03 PM EDT 03/14/2025 12:05 PM EDT us Delfino Aceves MD LAB POINT OF CARE TE ST DOCKED DEVICE UNSOLICITED RESULTS Final Result [facility] [address] [place] [address] * AL CRITICAL CARE, E/M 30-74 MINUTES (03/14/2025 7:18 [...] POCT glucose meter (03/14/2025 6:23 AM EDT) [facility] POCT Glucose 103(H) 74 - 99 [...] 03/14/2025 6:24 AM EDT [facility] Environmental Health And Safety Leader ID Heraclio Gomez 03/14/2025 6:24 AM EDT [facility] Device ID [id number] 03/14/2025 6:24 AM EDT HEALTHCARE LAB Specimen Type POC Capillary 03/14/2025 6:24 AM EDT HEALTHCARE LAB Blood Capillary blood specimen / Unknown 03/14/2025 6:23 AM EDT 03/14/2025 6:24 AM EDT us Gt De La Paz MD LAB POINT OF CARE TE ST DOCKED DEVICE UNSOLICITED RESULTS Final Result [facility] [address] [place] [address] * MR Head wo IV Contrast (03/14/2025 [...] ult [facility] [address] [place] [address] * (ABNORMAL) CBC W/O Differential (03/14/2025 12:34 [...] ult [facility] [address] [place] [address] * (ABNORMAL) Blood gas panel, venous (03/14/2025 [...] [facility] [address] [place] [address] * Triglycerides (03/14/2025 12:34 AM EDT) [facility] Triglycerides, Plasma 114 <150 mg/dL 03/14/2025 [...] t [facility] [address] [place] [address] * (ABNORMAL) POCT glucose meter (03/14/2025 12:30 AM EDT) [facility] POCT Glucose 118(H) 74 - 99 [...] Comment 03/14/2025 12:32 AM EDT HEALTHCARE LAB Environmental Health And Safety Leader ID Heraclio Gomez 03/14/2025 12:32 AM EDT HEALTHCARE LAB Device ID [id number] 03/14/2025 12:32 AM EDT HEALTHCARE LAB Specimen Type POC Venous 03/14/2025 12:32 AM EDT HEALTHCARE LAB Blood Venous blood specimen / Unknown 03/14/2025 12:30 AM EDT 03/14/2025 12:32 AM EDT us Gt De La Paz MD LAB POINT OF CARE TE ST DOCKED DEVICE UNSOLICITED RESULTS Final Result [facility] [address] [place] [address] * (ABNORMAL) POCT glucose meter (03/13/2025 6:25 PM EDT) [facility] POCT Glucose 129(H) 74 - 99 [...] Comment 03/13/2025 6:26 PM EDT HEALTHCARE LAB Environmental Health And Safety Leader ID Leeanna Linda 03/13/2025 6:26 PM EDT HEALTHCARE LAB Device ID [id number] 03/13/2025 6:26 PM EDT HEALTHCARE LAB Specimen Type POC Capillary 03/13/2025 6:26 PM EDT [facility] Blood Capillary blood specimen / Unknown 03/13/2025 6:25 PM EDT 03/13/2025 6:26 PM EDT Gt De La Paz MD LAB POINT OF CARE TE ST DOCKED DEVICE UNSOLICITED RESULTS Final Result [facility] [address] [place] [address] * (ABNORMAL) POCT glucose meter (03/13/2025 12:14 PM EDT) [facility] POCT Glucose 123(H) 74 - 99 [...] 03/13/2025 12:16 PM EDT [facility] Environmental Health And Safety Leader ID Leeanna Linda 03/13/2025 12:16 PM EDT [facility] Device ID [id number] 03/13/2025 12:16 PM EDT HEALTHCARE LAB Specimen Type POC Capillary 03/13/2025 12:16 PM EDT [facility] Blood Capillary blood specimen / Unknown 03/13/2025 12:14 PM EDT 03/13/2025 12:16 PM EDT Gt De La Paz MD LAB POINT OF CARE TE ST DOCKED DEVICE UNSOLICITED RESULTS Final Result Performing Organization Address City/[facility] Co de Phone Number [facility] [address] [place] [address] * Body fluid, cytospin, pathologist interpretation (03/13/2025 [...] FLUIDS AND STOOLS ORD ERABLES Final Result [facility] [address] [place] [address] * BAL Comprehensive Respiratory Panel by PCR (03/13/2025 11:34 AM EDT) BAL Comprehensive PCR Result Not Detected for all analytes Not Detected for all analytes 03/13/2025 1:44 PM EDT [facility] Bronchoalveolar Lavage Bronchoalveolar lavage fluid specimen / [...] developed and its performance characteristics determined by [facility] as appropriate for clinical purposes. This assay has not been cleared or approved by the FDA, but is performed in a CLIA regulated laboratory that is performed in a CLIA regulated laboratory that is qualified to perform high-complexity testing. The [facility] Clinical Microbiology Laboratory is certified under the Clinical Laboratory Improvement Amendments of 1988 (CLIA-88) as qualified to perform high complexity clinical laboratory testing. Gt De La Paz MD LAB MICROBIOLOGY - GENERAL ORD ERABLES Final Result [facility] [address] [place] [address] * Pneumocystis Jirovecii by PCR (03/13/2025 11:34 AM EDT) P. Jirovecii by PCR Not Detected 03/17/2025 12:16 AM EDT [facility] ([employer]) P. Jirovecii Source BAL 03/17/2025 12:16 AM EDT [facility] ([facility]) Bronchoalveolar Lavage Bronchoalveolar lavage fluid specimen / Unknown 03/13/2025 11:34 AM EDT 03/13/2025 11:46 AM EDT Narrative [facility] ([place]) - 03/17/2025 12:16 AM EDT NOT DETECTED - A negative result does not rule out the presence of PCR inhibitors in the patient specimen or assay specific nucleic acid in concentrations below the level of detection by the assay. This test was developed and its performance characteristics determined by [facility]. It has not been cleared or approved by the [place] Food and Drug Administration. This test was performed in a CLIA certified laboratory and is intended for clinical purposes. Performed By: [facility] [address] [place] [address] Tax Form Preparer: Saqib Cortes MD, PhD CLIA Number: [id number] us tG De La Paz MD LAB REF LAB BLOOD AND FLUID OR D Final Result [facility] [address] [place] [address] * Aspergillus galactomannan antigen (03/13/2025 11:34 AM [...] Aspergillus Galactomannan EIA is a product of [employer] and is FDA approved for in vitro diagnostic use. Testing Performed at: [facility] [address], [address] [place] [address] Director Apparel: Dominick Gonsalez, PhD [facility] ([facility]) CLIA # [id number] FLAG Interpretation: A = Abnormal, H = High, L = Low Bronchoalveolar Lavage Bronchoalveolar lavage fluid specimen / Unknown 03/13/2025 11:34 AM EDT 03/13/2025 11:46 AM EDT Narrative [facility] ([facility]) - 03/15/2025 6:38 PM EDT [facility]Immediate us Gt De La Paz MD LAB BODY FLUIDS AND STOOLS ORD ERABLES Final Result [facility] ([facility]) * Non-Gynecologic Cytology, Fluid (03/13/2025 11:34 AM EDT) Case Report Cytology Case: [id number] Authorizing Provider: Gt De La Paz MD [...] [facility] [address] [place] [address] * Bronchoalveolar Lavage Cell Count W/ Diff [...] ORD ERABLES Final Result Performing Organization Address [facility] Co de Phone Number [facility] [address] [place] [address] * Quantitative BAL/PAL/Bronch Wash Culture and Gram [...] ORD ERABLES Final Result Performing Organization Address [facility] Phone Number [facility] [address] [place] [address] * BEDSIDE BRONCHOSCOPY (03/13/2025 10:30 AM EDT) Narrative Gt De La Paz MD - 03/13/2025 10:30 AM EDT Gt De La Paz MD 03/14/2025 9:30 AM Bronchoscopy Performed by: Gt De La Paz MD Authorized by: Gt De La Paz MD us Gt De La Paz MD IN CLINIC/BEDSIDE ORDERABLES E dited Result - Final * [facility] CRITICAL CARE, E/M 30-74 MINUTES (03/13/2025 7:06 [...] for testing. Comment 03/13/2025 6:24 AM EDT [facility] Environmental Health And Safety Leader ID Heraclio Gomez 03/13/2025 6:24 AM EDT [facility] Device ID [id number] 03/13/2025 6:24 AM EDT [facility] Specimen Type POC Capillary 03/13/2025 6:24 AM EDT [facility] Blood Capillary blood specimen / Unknown 03/13/2025 6:22 AM EDT 03/13/2025 6:24 AM EDT Mariah Mcgowan MD LAB POINT OF CARE TEST DOCKED DEVICE UNSOLICITED RESULTS Final Result [facility] [address] [place] [address] * (ABNORMAL) POCT glucose meter (03/13/2025 12:58 AM EDT) Pathologist [facility] POCT Glucose 167(H) 74 - 99 mg/dL [...] Comment 03/13/2025 12:59 AM EDT HEALTHCARE LAB Environmental Health And Safety Leader ID Leigh Vogt 025 12:59 AM EDT HEALTHCARE LAB Device ID [id number] 03/13/2025 12:59 AM EDT HEALTHCARE LAB Specimen Type POC Venous 03/13/2025 12:59 AM EDT HEALTHCARE LAB Blood Venous blood specimen / Unknown 03/13/2025 12:58 AM EDT 03/13/2025 12:59 AM EDT us Mariah Mcgowan MD LAB POINT OF CARE TEST DOCKED DEVICE UNSOLICITED RESULTS Final Result Performing Organization Address [facility] Co de Phone Number [facility] [address] [place] [address] * LACTIC ACID, VENOUS (03/13/2025 12:57 AM EDT) Lactate, Venous, Whole Blood 1.6 0.5 - 2.2 mmol/L LAB HEMATOLOGY METHOD 03/13/2025 1:12 AM EDT [facility] Blood Venous blood specimen / Unknown Venipuncture / Unknown 03/13/2025 12:57 AM EDT 03/13/2025 1:09 AM EDT us Mariah Mcgowan MD LAB BLOOD ORDERABLES Final Result [facility] [address] [place] [address] * (ABNORMAL) Comprehensive metabolic panel (03/13/2025 12:57 [...] Result [facility] [address] [place] [address] * (ABNORMAL) Blood gas panel, venous (03/13/2025 [...] Mcgowan MD LAB BLOOD ORDERABLES Final Result [facility] [address] [place] [address] * Phosphorus, Plasma (03/13/2025 12:57 AM EDT) Phosphorus, Plasma 2.8 2.5 - 4.5 mg/dL 03/13/2025 1:41 AM EDT [facility] Blood Venous blood specimen / Unknown Venipuncture / Unknown 03/13/2025 12:57 AM EDT 03/13/2025 1:12 AM EDT Mariah Mcgowan MD LAB BLOOD ORDERABLES Final Result Performing Organization Address City/[facility]/[place] [address] * (ABNORMAL) Magnesium, Plasma (03/13/2025 12:57 AM EDT) Magnesium, Plasma 1.7(L) 1.9 - 2.4 mg/dL 03/13/2025 1:41 AM EDT [facility] Blood Venous blood specimen / Unknown Venipuncture / Unknown 03/13/2025 12:57 AM EDT 03/13/2025 1:12 AM EDT Mariah Mcgowan MD LAB BLOOD ORDERABLES Final Result Performing Organization Address City/[facility]/[place] [address] * Ionized calcium, serum (03/13/2025 12:57 AM EDT) Ionized Calcium, Serum 4.9 4.6 - 5.3 mg/dL LAB HEMATOLOGY METHOD 03/13/2025 1:45 AM EDT [facility] Blood Venous blood specimen / Unknown Venipuncture / Unknown 03/13/2025 12:57 AM EDT 03/13/2025 1:12 AM EDT Mariah Mcgowan MD LAB BLOOD ORDERABLES Final Result [facility] [address] [place] [address] * (ABNORMAL) CBC W/O Differential (03/13/2025 12:57 AM EDT) Pathologist [facility] WBC Count 8.81 3.70 - 10.30 10*3/uL [...] BLOOD ORDERABLES Final Result Performing Organization Address City/[facility]/ZIP Co de Phone Number [facility] [address] [place] [address] * Urinalysis Microscopic Examination (03/12/2025 11:05 PM EDT) Urine Urine specimen obtained by clean catch procedure / Unknown Non-blood Collection / Unknown 03/12/2025 11:05 PM EDT 03/12/2025 11:11 PM EDT Mariah Mcgowan MD LAB URINE ORDERABLES Final Result Performing Organization Address City/[facility] Co de Phone Number [facility] [address] [place] [address] * (ABNORMAL) Opiates Confirm Urine (03/12/2025 11:05 [...] developed and its performance characteristics determined by [facility]. It has not been cleared or approved by the FDA. The laboratory is regulated under CLIA as qualified to perform high-complexity testing. This test is used for clinical purposes. Testing is performed at the [facility], Special Chemistry Laboratory. Mraiah Mcgowan MD LAB URINE ORDERABLES Final Result [facility] [address] [place] [address] * (ABNORMAL) Fentanyl Urine Confirm (03/12/2025 11:05 PM EDT) Fentanyl 3(H) <1 ng/mL 03/15/2025 5:06 PM EDT [facility] Norfentanyl 5(H) <2 ng/mL 03/15/2025 5:06 PM EDT [facility] [...] developed and its performance characteristics determined by [facility]. It has not been cleared or approved by the FDA. The laboratory is regulated under CLIA as qualified to perform high-complexity testing. This test is used for clinical purposes. Testing is performed at the [facility], Special Chemistry Laboratory. Mariah Mcgowan MD LAB URINE ORDERABLES Final Result [facility] [address] [place] [address] * (ABNORMAL) Urinalysis with reflex microscopic (Culture NOT Included) (03/12/2025 11:05 PM EDT) Color, Urine Yellow LAB URINALYSIS - AUTOMATED METHOD 03/13/2025 12:17 AM EDT [facility] Clarity, Urine Clear LAB URINALYSIS - AUTOMATED METHOD 03/13/2025 12:17 AM EDT [facility] Spec [place], Urine >1.030(H) 1.005 - 1.030 LAB URINALYSIS - AUTOMATED METHOD 03/13/2025 12:17 AM EDT [facility] pH, Urine 7.0 5.0 - 8.0 LAB URINALYSIS - AUTOMATED METHOD 03/13/2025 12:17 AM EDT [facility] Protein, Urine 30(A) Negative mg/dL LAB URINALYSIS - AUTOMATED METHOD 03/13/2025 12:17 AM EDT [facility] Glucose, Urine 100(A) Negative mg/dL LAB URINALYSIS - AUTOMATED METHOD 03/13/2025 12:17 AM EDT [facility] Ketones, Urine Negative Negative mg/dL LAB URINALYSIS - AUTOMATED METHOD 03/13/2025 12:17 AM EDT [facility] Blood, Urine Large(A) Negative LAB URINALYSIS - AUTOMATED METHOD 03/13/2025 12:17 AM EDT [facility] Bilirubin, Urine Negative Negative LAB URINALYSIS - AUTOMATED METHOD 03/13/2025 12:17 AM EDT [facility] Urobilinogen, Urine 0.2 0.2 to 1.0 mg/dL LAB URINALYSIS - AUTOMATED METHOD 03/13/2025 12:17 AM EDT [facility] Leukocytes, Urine Moderate(A) Negative LAB URINALYSIS - AUTOMATED METHOD 03/13/2025 12:17 AM EDT [facility] Nitrite, Urine Negative Negative LAB URINALYSIS - AUTOMATED METHOD 03/13/2025 12:17 AM EDT [facility] RBC, Urine >50(A) 0 to 3 /HPF LAB URINALYSIS - AUTOMATED METHOD 03/13/2025 12:17 AM EDT [facility] WBC, Urine >50(A) 0 to 5 /HPF LAB URINALYSIS - AUTOMATED METHOD 03/13/2025 12:17 AM EDT [facility] Squamous Epithelial Cells 0 - 2 0 to 5 /HPF LAB URINALYSIS - AUTOMATED METHOD 03/13/2025 12:17 AM EDT [facility] Hyaline Casts 0 - [...] Result [facility] [address] [place] [address] * Drug Abuse Screen Urine (03/12/2025 11:05 [...] Cutoff: 100 ng/mL 03/12/2025 11:44 PM EDT [facility] Urine Urine specimen obtained by clean catch procedure / Unknown Non-blood Collection / Unknown 03/12/2025 11:05 PM EDT 03/12/2025 11:11 PM EDT Mariah Mcgowan MD LAB URINE ORDERABLES Final Result [facility] [address] [place] [address] * Multi Drug Resistance Test (03/12/2025 10:18 PM EDT) Culture No growth at day 1 03/14/2025 8:08 AM EDT [facility] Swab (Nares and Jazmyn Rectal) Non-blood Collection / Unknown 03/12/2025 10:18 PM EDT 03/12/2025 10:22 PM EDT Narrative [facility] - 03/14/2025 8:08 AM EDT This test was developed and its performance characteristics determined by the [facility] Clinical Microbiology Laboratory. Although the media is FDA-approved, it is not FDA-approved for all specimen types submitted. The FDA has determined that such clearance or approval is not necessary. This test is used for surveillance purposes. It should not be regarded as investigational or for research. The [facility] Clinical Microbiology Laboratory is certified under the Clinical Laboratory Improvement Amendments of 1988 (CLIA-88) as qualified to perform high complexity clinical laboratory testing. Mariah Mcgowan MD LAB MICROBIOLOGY - GENERAL ORDERABLES Final Result Performing Organization Address City/[facility]/ZIP Co de Phone Number [facility] [address] [place] [address] * Cathy auris Surveillance by PCR (03/12/2025 10:18 PM EDT) Pathologist [facility] Cathy auris PCR Result Not Detected Not Detected 03/14/2025 6:39 AM EDT [facility] Swab (Axilla and Groin) Non-blood Collection / Unknown 03/12/2025 10:18 PM EDT 03/12/2025 10:22 PM EDT Narrative [facility] - 03/14/2025 6:39 AM EDT This PCR assay was developed and its performance characteristics determined by [facility] as appropriate for clinical purposes. This assay has not been cleared or approved by the FDA, but is performed in a CLIA regulated laboratory that is qualified to perform high-complexity testing. Mariah Mcgowan MD LAB MICROBIOLOGY - GENERAL ORDERABLES Final Result Performing Organization Address City/[facility]/ZIP Co de Phone Number [facility] [address] [place] [address] * (ABNORMAL) Potassium (03/12/2025 10:17 PM EDT) Pathologist [facility] Potassium, Plasma 6.3(H) 3.6 - 4.9 mmol/L 03/12/2025 10:44 PM EDT [facility] Blood Venous blood specimen / Unknown Venipuncture / Unknown 03/12/2025 10:17 PM EDT 03/12/2025 10:22 PM EDT Mariah Mcgowan MD LAB BLOOD ORDERABLES Final Result Performing Organization Address [facility] de Phone Number [facility] [address] [place] [address] * (ABNORMAL) Troponin T, High Sensitivity, 2 Hour, Plasma (03/12/2025 10:17 PM EDT) [facility] Troponin T, High Sensitivity, 2 Hour [...] ORDERABLES Final Resul t Performing Organization Address [facility] de Phone Number [facility] [address] [place] [address] * (ABNORMAL) POCT glucose meter (03/12/2025 10:14 PM EDT) [facility] POCT Glucose 137(H) 74 - 99 mg/dL 03/12/2025 10:16 PM EDT [facility] Comment:Accuracy of a glucos e result [...] 03/12/2025 10:16 PM EDT [facility] Environmental Health And Safety Leader ID Heraclio Zamorano 03/12/2025 10:16 PM EDT [facility] Device ID [id number] 03/12/2025 10:16 PM EDT [facility] Specimen Type POC Capillary 03/12/2025 10:16 PM EDT [facility] Blood Capillary blood specimen / Unknown 03/12/2025 10:14 PM EDT 03/12/2025 10:16 PM EDT Mariah Mcgowan MD LAB POINT OF CARE TEST DOCKED DEVICE UNSOLICITED RESULTS Final Result [facility] [address] [place] [address] * XR Abdomen 1 View (03/12/2025 9:21 [...] of the abdomen. COMPARISON: None. FINDINGS: Limited [id number] abdominal radiograph for the purpose of locating tube position. The tip of the nasogastric tube is within the proximal stomach. Procedure Note Libra Balbuena MD - 03/12/2025 CLINICAL INDICATION: Orogastric tube TECHNIQUE: Supine radiograph of the abdomen. COMPARISON: None. FINDINGS: Limited [id number] abdominal radiograph for the purpose of locatingtube [...] ORDER ALLEN Final Result Performing Organization Address City/[facility]/ZIP Co de Phone Number [facility] [address] [place] [address] * Methemoglobin (03/12/2025 9:07 PM EDT) Pathologist [facility] Methemoglobin 0.6 0.0 - 1.5 % LAB HEMATOLOGY METHOD 03/12/2025 9:18 PM EDT [facility] Blood Venous blood specimen / Unknown Venipuncture / Unknown 03/12/2025 9:07 PM EDT 03/12/2025 9:17 PM EDT Result Colton Castro LAB BLOOD ORDERABLES Final Resul t Performing Organization Address City/[facility]/ZIP Co de Phone Number [facility] [address] [place] [address] * Blood Culture (Aerobic/Anaerobet Set) (03/12/2025 9:07 PM EDT) [facility] Culture No growth at day 5 [...] ORDER ALLEN Final Result Performing Organization Address City/[facility]/ZIP Co de Phone Number [facility] [address] [place] [address] * Streptococcus pneumoniae and Legionella Urinary Antigen (03/12/2025 9:00 PM EDT) Pathologist [facility] Legionella pneumophila serogroup 1 Antigen Result (Urine) Negative Negative 03/12/2025 9:44 PM EDT [facility] Streptococcus pneumoniae Antigen Result (Urine) Negative Negative 03/12/2025 9:44 PM EDT [facility] Urine Urine specimen obtained by clean catch procedure / Unknown Non-blood Collection / Unknown 03/12/2025 9:00 PM EDT 03/12/2025 9:19 PM EDT us Staci Castro LAB MICROBIOLOGY - GENERAL ORDER ALLEN Final Result [facility] [address] [place] [address] * (ABNORMAL) POCT arterial blood gas gem (03/12/2025 8:57 PM EDT) pH, Arterial 7.34 7.31 - 7.42 03/12/2025 8:59 PM EDT [facility] pCO2, Arterial 53(H) 32 - 45 mm Hg 03/12/2025 8:59 PM EDT [facility] pO2, Arterial 75 >70 mm Hg 03/12/2025 8:59 PM EDT [facility] SO2, Arterial 98 94 - 98 % 03/12/2025 8:59 PM EDT [facility] FIO2 100.0 % 03/12/2025 8:59 PM EDT [facility] Base Excess, Arterial 1.9 -2 - 3 mmol/L 03/12/2025 8:59 PM EDT [facility] HCO3, Arterial 28.6(H) 22 - 26 mmol/L 03/12/2025 8:59 PM EDT [facility] Total Hemoglobin, Arterial, Whole Blood 11.8(L) 13.7 - 17.5 g/dL 03/12/2025 8:59 PM EDT [facility] Hematocrit, Arterial 35.0(L) 40 - 51.0 % 03/12/2025 8:59 PM EDT [facility] Sodium, Arterial 132(L) 136 - 145 mmol/L 03/12/2025 8:59 PM EDT [facility] Potassium, Arterial 6.2(H) 3.6 - 4.9 mmol/L 03/12/2025 8:59 PM EDT [facility] Comment:Hemolyzed, result ma y be falsely increased. Chloride, Whole Blood 101 97 - 107 mmol/L 03/12/2025 8:59 PM EDT [facility] Glucose, Arterial 121(H) 74 - 99 mg/dL 03/12/2025 8:59 PM EDT [facility] Ionized Calcium, Arterial 4.6 4.6 - 5.1 mg/dL 03/12/2025 8:59 PM EDT [facility] Lactate, Arterial 0.7 0.5 - 1.6 mmol/L 03/12/2025 8:59 PM EDT [facility] Body Temperature 37.2 Celsius 03/12/2025 8:59 PM EDT [facility] pH, Temp Corrected, Arterial 7.34 7.31 - 7.42 03/12/2025 8:59 PM EDT [facility] pCO2, Temp Corrected, Arterial 53(H) 32 - 45 mm Hg 03/12/2025 8:59 PM EDT [facility] pO2, Temp Corrected, Arterial 76 >70 mm Hg 03/12/2025 8:59 PM EDT [facility] Environmental Health And Safety Leader ID Dwayne Bose 03/12/2025 8:59 PM EDT [facility] Blood, Arterial Whole blood specimen / Unknown 03/12/2025 8:57 PM EDT 03/12/2025 8:59 PM EDT us Staci Castro LAB POINT OF CARE TE ST DOCKED DEVICE UNSOLICITED RESULTS Final Result Performing Organization Address City/State/[facility] Co de Phone Number [facility] [address] [place] [id number] * SARS CoV-2/COVID-19 by PCR - Rapid (03/12/2025 8:53 PM EDT) SARS CoV-2/COVID-1 9 RNA PCR Result Not Detected Not Detected 03/12/2025 10:09 PM EDT [facility] Swab Nasopharyngeal structure / Unknown Non-blood Collection / Unknown 03/12/2025 8:53 PM EDT 03/12/2025 9:20 PM EDT Narrative [facility] - 03/12/2025 10:09 PM [...] MICROBIOLOGY - GENERAL ORDER ALLEN Final Result [facility] [address] [place] [address] * Nasopharyngeal Respiratory Panel (03/12/2025 8:53 PM EDT) Nasopharyngeal Respiratory PCR Interpretation Not Detected for all analytes Not Detected for all analytes 03/13/2025 1:10 AM EDT [facility] Swab Nasopharyngeal structure / [...] Respiratory PCR Panel is performed using the Luximlex instrument. This test is FDA approved for use with Nasopharyngeal swabs only. This test is used for clinical purposes. It should not be regarded as investigational or for research. The [facility] Clinical Microbiology Laboratory is certified under the Clinical Laboratory Improvement Amendments of 1988 (CLIA-88) as qualified to perform high complexity clinical laboratory testing. us Stacielio Castro LAB MICROBIOLOGY - GENERAL ORDER ALLEN Final Result Performing Organization Address [facility] de Phone Number [facility] [address] [place] [address] * Methicillin Resistant Staphylococcus aureus (MRSA) by PCR (03/12/2025 8:53 PM EDT) Pathologist [facility] Methicillin Resistant Staphylococcus aureus (MRSA) by PCR Not Detected Not Detected 03/12/2025 10:41 PM EDT [facility] Swab Both anterior nares / Unknown Non-blood [...] ORDER ALLEN Final Result Performing Organization Address [facility] [place] [address] * EKG now - STAT (adult) (03/12/2025 8:49 PM EDT) EKG DIAGNOSIS CLASS Abnormal MUSE ECG Ventricular Rate 62 BPM MUSE ECG Atrial Rate 62 BPM MUSE ECG AL Interval 168 ms MUSE ECG QRSD Interval 128 ms MUSE ECG QT Interval 416 ms MUSE ECG QTC Interval 422 ms MUSE ECG P [place] 64 degrees MUSE ECG R [place] 81 degrees MUSE ECG T Wave [place] 81 degrees MUSE ECG Diagnosis Normal sinus rhythm MUSE ECG Diagnosis Right bundle branch block MUSE ECG Diagnosis Abnormal ECG MUSE ECG Diagnosis MUSE ECG Diagnosis Confirmed by Chino Witt ([id number]) on 03/13/2025 8:51:16 PM MUSE ECG 03/12/2025 8:49 PM EDT 03/13/2025 8:51 PM EDT Staci Castro ECG ORDERABLES Final Result MUSE ECG * (ABNORMAL) C-reactive protein (03/12/2025 8:48 PM EDT) Pathologist [facility] CRP, Plasma 10.6(H) <=8.0 mg/L 03/12/2025 10:27 PM EDT [facility] Blood Venous blood specimen / Unknown Venipuncture / Unknown 03/12/2025 8:48 PM EDT 03/12/2025 8:59 PM EDT Narrative [facility] - 03/12/2025 10:27 PM EDT This CRP test is appropriate for assessment of infection, systemic inflammation and/or tissue injury. To assess cardiovascular disease risk order high sensitivity CRP (CRPH). Mariah Mcgowan MD LAB BLOOD ORDERABLES Final Result Performing Organization Address City/[facility] Co de Phone Number [facility] [address] [place] [address] * TSH Reflex FT4 (03/12/2025 8:48 PM EDT) [facility] Thyroid Stimulating Hormone, Plasma 2.54 0.40 - 4.20 uIU/mL 03/12/2025 10:27 PM EDT [facility] Blood Venous blood specimen / Unknown Venipuncture / Unknown 03/12/2025 8:48 PM EDT 03/12/2025 8:59 PM EDT Mariah Mcgowan MD LAB BLOOD ORDERABLES Final Result Performing Organization Address City/[facility]/ZIP Co de Phone Number [facility] [address] [place] [address] * Light Green Top (03/12/2025 8:48 PM EDT) [facility] Extra Hold for add-ons 03/13/2025 12:01 AM EDT [facility] Comment:Auto resulted. Blood Venous blood specimen / Unknown 03/12/2025 8:48 PM EDT 03/12/2025 9:20 PM EDT us Mariah Mcgowan MD LAB BLOOD ORDERABLES Final Result Performing Organization Address [facility]/ZIP Co de Phone Number [facility] [address] [place] [address] * Light Blue Top (03/12/2025 8:48 PM EDT) [facility] Extra Hold for add-ons 03/13/2025 12:01 AM EDT [facility] Comment:Auto resulted. Blood Venous blood specimen / Unknown 03/12/2025 8:48 PM EDT 03/12/2025 9:20 PM EDT us Mariah Mcgowan MD LAB BLOOD ORDERABLES Final Result Performing Organization Address [facility]/ZIP Co de Phone Number [facility] [address] [place] [address] * ED HIV 1/2 Antibody/Antigen Screen w/Reflex to HIV 1/2 Differentiation (03/12/2025 8:48 PM EDT) [facility] HIV 1 & 2 Antibody/Antigen Screen [...] ORDERABLES Final Resul t Performing Organization Address City/[facility]/ZIP Co de Phone Number [facility] [address] [place] [address] * Hepatitis C Antibody - ED (03/12/2025 8:48 PM EDT) [facility] Hepatitis C Antibody Negative Negative 03/12/2025 9:38 PM EDT [facility] Blood Venous blood specimen / Unknown Venipuncture / Unknown 03/12/2025 8:48 PM EDT 03/12/2025 8:59 PM EDT us Staci Castro LAB BLOOD ORDERABLES Final Resul t Performing Organization Address [facility] Co de Phone Number [facility] [address] [place] [address] * (ABNORMAL) Procalcitonin (03/12/2025 8:48 PM EDT) [...] predict 28 day mortality risk. Please consult [email or web address] for more information. Test performed at [facility], [facility] Laboratory. Result Colton Castro LAB BLOOD ORDERABLES Final Resul t Performing Organization Address City/[facility]/ZIP Co de Phone Number [facility] [address] [place] [address] * (ABNORMAL) Troponin now and 120 min (03/12/2025 8:48 PM EDT) Troponin T, High Sensitivity, 0 Hour 32(H) <19 ng/L 03/12/2025 9:37 PM EDT [facility] Blood Venous blood specimen / Unknown Venipuncture / Unknown 03/12/2025 8:48 PM EDT 03/12/2025 8:59 PM EDT us Staci Castro LAB BLOOD ORDERABLES Final Resul t Performing Organization Address [facility]/ZIP Co de Phone Number [facility] [address] [place] [address] * (ABNORMAL) Magnesium (03/12/2025 8:48 PM EDT) Magnesium, Plasma 1.7(L) 1.9 - 2.4 mg/dL 03/12/2025 9:37 PM EDT [facility] Blood Venous blood specimen / Unknown Venipuncture / Unknown 03/12/2025 8:48 PM EDT 03/12/2025 8:59 PM EDT us Staci Castro LAB BLOOD ORDERABLES Final Resul t Performing Organization Address [facility] Co de Phone Number [facility] [address] [place] [address] * (ABNORMAL) CMP (03/12/2025 8:48 PM EDT) [...] t [facility] [address] [place] [address] * (ABNORMAL) PT-INR (03/12/2025 8:48 PM EDT) Prothrombin Time 14.6(H) 12.0 - 14.3 sec 03/12/2025 9:06 PM EDT [facility] INR 1.2(H) 0.9 - 1.1 03/12/2025 9:06 PM EDT [facility] INR 2.5 to 3.5 Prevention of recurrent IN INR 2.5 to 3.5 us Staci Castro LAB BLOOD ORDERABLES Final Resul t [facility] [address] [place] [address] * (ABNORMAL) CBC w/diff (03/12/2025 8:48 PM EDT) WBC Count 9.02 3.70 - 10.30 10*3/uL LAB HEMATOLOGY METHOD 03/12/2025 8:56 PM EDT [facility] RBC Count 4.48(L) 4.60 [...] t [facility] [address] [place] [address] * AL CRITICAL CARE, ADDL 30 MIN (03/12/2025 8:41 [...] 7.32 - 7.43 03/12/2025 8:42 PM EDT [facility] pCO2, Venous 57(H) 40 - 55 mm Hg 03/12/2025 8:42 PM EDT [facility] pO2, Venous 46(H) 25 - 40 mm Hg 03/12/2025 8:42 PM EDT [facility] SO2, Venous 82(H) 65 - 80 % 03/12/2025 8:42 PM EDT [facility] Base Excess/Deficit, Venous 3.7(H) -2 - 3 mmol/L 03/12/2025 8:42 PM EDT [facility] HCO3, Venous 30.8(H) 22 - 26 mmol/L 03/12/2025 8:42 PM EDT [facility] Hemoglobin, Venous 12.3(L) 13.7 - 17.5 g/dL 03/12/2025 8:42 PM EDT [facility] Hematocrit, Venous 37.0(L) 40.0 - 51.0 % 03/12/2025 8:42 PM EDT [facility] Sodium, Venous 132(L) 136 - 145 mmol/L 03/12/2025 8:42 PM EDT [facility] Potassium, Venous 6.4(H) 3.6 - 4.9 mmol/L 03/12/2025 8:42 PM EDT [facility] Comment:Hemolyzed, result ma y be falsely increased. POCT Chloride, Venous 101 97 - 107 mmol/L 03/12/2025 8:42 PM EDT [facility] Glucose, Venous 113(H) 74 - 99 mg/dL 03/12/2025 8:42 PM EDT [facility] Ionized Calcium, Venous 4.6 4.6 - 5.1 mg/dL 03/12/2025 8:42 PM EDT [facility] Lactate, Venous 0.9 0.5 - 2.2 mmol/L 03/12/2025 8:42 PM EDT [facility] Body Temperature 37.0 Celsius 03/12/2025 8:42 PM EDT [facility] pH, Temp Corrected, Venous 7.34 7.32 - 7.43 03/12/2025 8:42 PM EDT [facility] pCO2, Temp Corrected, Venous 57(H) 40 - 55 mm Hg 03/12/2025 8:42 PM EDT [facility] pO2, Temp Corrected, Venous 46(H) 25 - 40 mm Hg 03/12/2025 8:42 PM EDT [facility] Environmental Health And Safety Leader ID Irene Ro 03/12/2025 8:42 PM EDT [facility] Blood, Venous Whole blood specimen / Unknown 03/12/2025 8:41 PM EDT 03/12/2025 8:42 PM EDT us Generic Provider Poct LAB POINT OF CARE TEST DOCKED DEVICE UNSOLICITED RESULTS Final Result [facility] [address] [place] [address] documented in this encounter Visit Diagnoses Diagnosis [...] 5,000 Units L eft Lower Abdomen HYDROcodone-acetaminophen ([place]) 5-325 MG per tablet 10 mg of [...] Discontinued, Routine 0626 (Given - Provider: Heraclio Gmoez RN)1334 (Given - Provider: Shellie Casarez RN)2240 (Given - Provider: Casie Street) 0607 (Given - Provider: Ying Patirck RN) insulin lispro (Admelog) 100 units/mL injection [...] Provider: Amanda Abdullahi)0801 (Given - Provider: Anupam Hahn)151 (Given - Provider: Anupam Hahn)203 (Given - [...] on 03/12/25 at 2200, Last dose on Ivviane 03/17/25 at 0900, Routine 0807 (Given - [...] Alternative - Provider: Heraclio Gomez RN) HYDROcodone-acetaminophen ([place]) 5-325 MG per tablet 10 mg of [...] documented as of this encounter Care Teams Construction Quality Control Manager Relationship Specialty Start Date End Date Joycelyn Montes PA [address] [place] [address] PCP - General 04/01/23 documented as of this encounter
[2025-04-16] VITALS (22 sets, daily range): BP systolic 109–153; BP diastolic 57–102; PULSE 93–119; RESP 12–25; TEMP 37.2–38.6; O2SAT 70–94; BMI 40.3
--- NOTE | 2025-04-16 09:39 | [facility].EDCP ---
Discharge Plan Disposition Chief Complaint: Shortness of Breath/Dyspnea Prescriptions Prescriptions: No Action albuterol sulfate 90 mcg/actuation HFA aerosol inhaler See Rx Instructions .ROUTE .COMPLEX Qty: 8.5 5RF Dose Instruction: INHALE 2 PUFFS BY MOUTH EVERY 4 TO 6 HOURS NEEDED FOR SHORTNESS OF BREATH Rx Instructions: INHALE 2 PUFFS BY MOUTH EVERY 4 TO 6 HOURS NEEDED FOR SHORTNESS OF BREATH Tradjenta 5 mg tablet 5 mg PO DAILY Qty: 90 3RF aspirin 325 mg tablet 325 mg PO DAILY Qty: 90 3RF (DME) Blood Glucose Test Strip See Rx Instructions MISCELLANEOUS Qty: 100 12RF Rx Instructions: As directed test morning and afternoon allopurinol 300 mg tablet See Rx Instructions .ROUTE .COMPLEX Qty: 90 3RF Dose Instruction: TAKE 1 TABLET BY MOUTH DAILY FOR GOUT Rx Instructions: TAKE 1 TABLET BY MOUTH DAILY FOR GOUT amitriptyline 25 mg tablet See Rx Instructions .ROUTE .COMPLEX Qty: 90 3RF Dose Instruction: TAKE 1 TABLET BY MOUTH AT BEDTIME NIGHTLY FOR MIGRAINES Rx Instructions: TAKE 1 TABLET BY MOUTH AT BEDTIME NIGHTLY FOR MIGRAINES dicyclomine 10 mg capsule See Rx Instructions .ROUTE .COMPLEX Qty: 180 3RF Dose Instruction: TAKE 1 CAPSULE BY MOUTH EVERY 6 HOURS Rx Instructions: TAKE 1 CAPSULE BY MOUTH 2x/day gabapentin 600 mg tablet 600 mg PO QID Qty: 120 5RF pantoprazole 40 mg tablet,delayed release (DR/EC) 40 mg PO QAM Qty: 90 3RF tadalafil 5 mg tablet See Rx Instructions .ROUTE .COMPLEX Qty: 90 3RF Dose Instruction: TAKE 1 TABLET BY MOUTH DAILY NEEDED FOR PROSTATE Rx Instructions: TAKE 1 TABLET BY MOUTH DAILY NEEDED FOR PROSTATE tamsulosin 0.4 mg capsule See Rx Instructions .ROUTE .COMPLEX Qty: 90 3RF Dose Instruction: TAKE 1 CAPSULE BY MOUTH DAILY FOR PROSTATE Rx Instructions: TAKE 1 CAPSULE BY MOUTH DAILY FOR PROSTATE nicotine (polacrilex) 2 mg gum 2 mg buccal Q2H PRN (Reason: nicotine cravings) Qty: 100 2RF tiotropium bromide [Spiriva with HandiHaler] 18 mcg capsule, w/inhalation device inhalation atorvastatin 20 mg tablet 20 mg PO DAILY Qty: 90 3RF amlodipine 10 mg tablet See Rx Instructions .ROUTE .COMPLEX Qty: 90 3RF Dose Instruction: TAKE 1 TABLET BY MOUTH DAILY FOR BLOOD PRESSURE Rx Instructions: TAKE 1 TABLET BY MOUTH DAILY FOR BLOOD PRESSURE nitroglycerin 0.4 mg tablet, sublingual See Rx Instructions .Route .COMPLEX Qty: 25 0RF Rx Instructions: ONE TABLET UNDER TONGUE NEEDED FOR CHEST PAIN NEEDED CHEST PAINS FOR 3 DOSES THEN CALL 911 hydrocodone-acetaminophen 10-325 mg tablet 1 tab PO Q6H PRN (Reason: pain) Qty: 120 0RF tiotropium bromide [Spiriva with HandiHaler] 18 mcg capsule, w/inhalation device 1 cap inhalation DAILY Qty: 30 2RF Rx Instructions: puncture 1 cap using device; one dose = 2 inhalations (DME) blood-glucose meter Misc See Rx Instructions MISCELLANEOUS Rx Instructions: As directed (DME) lancets [Color Lancets] 21 gauge misc See Rx Instructions MISCELLANEOUS Rx Instructions: As directed Referrals Follow up/Referrals: Levar Davison MD [Primary Care Provider, Family Practice] - See instructions Print Language Print Language: Korean Discharge ED Provider: Brinda San [facility] General Chief Complaint: Shortness of Breath/Dyspnea Stated Complaint: sleepy, can't hold on to anything Time Seen by Provider: 04/16/25 09:34 History of Present Illness HPI narrative: Patient is a 74-year-old with past medical history significant for COPD and lung cancer not currently being treated presents to the emergency department with sleepiness. Patient has been dozing off the last 2 days denies any other complaints including shortness of breath chest pain headache fever abdominal pain nausea or vomiting or decreased p.o. intake. Patient wears 2 L nasal cannula at nighttime but does not wear oxygen other times. Related Data Home Medications ?Medication ?Instructions ?Recorded ?Confirmed blood-glucose meter 08/06/22 04/08/25 lancets 21 gauge (Color Lancets) 08/06/22 04/08/25 tiotropium bromide 18 mcg capsule inhalation 04/08/25 04/08/25 with inhalation device (Spiriva with HandiHaler) Previous Rx's ?Medication ?Instructions ?Recorded aspirin 325 mg tablet 325 mg PO DAILY heart health #90 11/06/22 tabs blood sugar diagnostic (Blood #100 ea 11/06/22 Glucose Test strips) allopurinol 300 mg tablet See Rx Instructions .Route 08/16/24 .COMPLEX #90 tabs amitriptyline 25 mg tablet See Rx Instructions .Route 08/16/24 .COMPLEX #90 tabs dicyclomine 10 mg capsule See Rx Instructions .Route 08/16/24 .COMPLEX #180 caps gabapentin 600 mg tablet 600 mg PO QID Pain #120 tabs 08/16/24 pantoprazole 40 mg tablet,delayed 40 mg PO QAM #90 tabs 08/16/24 release tadalafil 5 mg tablet See Rx Instructions .Route 08/16/24 .COMPLEX #90 tabs tamsulosin 0.4 mg capsule See Rx Instructions .Route 08/16/24 .COMPLEX #90 caps atorvastatin 20 mg tablet 20 mg PO DAILY #90 tabs 08/17/24 amlodipine 10 mg tablet See Rx Instructions .Route 11/11/24 .COMPLEX #90 tabs nitroglycerin 0.4 mg sublingual See Rx Instructions .Route 11/11/24 tablet .COMPLEX Chest pain #25 tabs albuterol sulfate 90 mcg/actuation See Rx Instructions .Route 11/16/24 aerosol inhaler .COMPLEX #8.5 grams linagliptin 5 mg tablet (Tradjenta) 5 mg PO DAILY #90 tabs 11/16/24 nicotine (polacrilex) 2 mg gum 2 mg buccal Q2H PRN nicotine 12/03/24 cravings #100 ea hydrocodone 10 mg-acetaminophen 1 tab PO Q6H PRN pain #120 tabs 04/05/25 325 mg tablet tiotropium bromide 18 mcg capsule 1 cap inhalation DAILY #30 caps 04/13/25 with inhalation device (Spiriva with HandiHaler) Allergies Allergy/AdvReac Type Severity Reaction Status Date / Time fluticasone furoate (From Allergy Severe swollen Verified 04/08/25 10:07 Breo Ellipta) throat vilanterol (From Breo Allergy Severe swollen Verified 04/08/25 10:07 Ellipta) throat PFSH PFS Disclaimer: The information contained in this section may have been updated after the patient was seen, as this information can be updated by other users. Medical History Pneumonia Bilateral lower extremity edema Tobacco abuse counseling Pulmonary nodule Cervicogenic headache Symptomatic improvement with amitriptyline 25 mg p.o. nightly. 05/21/2023: Cervical traction unit was discussed, recommended. Encounter for screening for malignant neoplasm of lung Smoking greater than 30 pack years Advised to consider smoking cessation. COPD (chronic obstructive pulmonary disease) with emphysema Gout Arthritis Hyperlipidemia Hypertension Skin cancer Kidney stone COPD (chronic obstructive pulmonary disease) Allergies History of cataract DDD (degenerative disc disease), cervical Chronic headaches Degenerative disc disease, cervical Neck Pain PILY (obstructive sleep apnea) 08/06/2023: He is doing better and trying to use CPAP every night, (93.7%) but difficulty keeping mask in place for longer than 4 hours. He will work on it. Unable to tolerate a CPAP in the past and poor compliance with O2 at night. 06/03/2023, HSAT: Total recording time 5.07 hours. Sleep latency 8 minutes, sleep efficiency of 81%. AHI 33, RDI 37, SPO2 lower than 90% was recorded during 48% of total sleep time. Lowest SPO2: 69%. Surgical History History of cataract surgery History of heart artery stent History of cardiac catheterization History of ankle surgery LEFT History of surgery STENT X1 History of total knee replacement LEFT Family History Other Diabetes Heart attack Hypertension Stroke Social History Smoking Status: Former smoker tobacco type: cigarettes packs per day: 1 years smoked: 50 second hand exposure: No alcohol intake: former substance use type: denies use current occupational status: retired Travel in the last 8 weeks?: None household members: spouse housing: house current occupational exposures/hazards: No caffeine: Yes Have you lived/traveled outside US in past 30 days?: No Contact w/someone who lives/traveled outside US past 30 days?: Yes Exposure to someone with infectious disease in past 14 days?: No Do you have a fever (greater than 100.4 F or 38 C)?: No Have you tested positive for COVID-19?: No Exposed to someone with COVID-19 in past 14 days?: No Do you have a sore throat?: No Do you have a cough?: No Do you have any weakness?: No Do you have any diarrhea?: No Are you experiencing any unusual bleeding?: No Do you have any muscle aches/pain?: No Do you have any abdominal pain?: No Are you experiencing loss of taste or smell?: No Other Medical History Have you received the Flu Vaccine for this season: Yes Have you received the Pneumonia Vaccine: Yes ROS Obtained: Yes All systems reviewed & no additional complaints except as documented Physical Exam General General appearance: alert and in no apparent distress Comment: carrying on normal conversation ENT ENT exam: Present normal oropharynx and mucous membranes moist Respiratory Respiratory exam: Present other (minimal air movement right lung browne, wheezing left lung browne) Cardiovascular Cardiovascular exam: Present regular rate and tachycardia Abdominal Exam Abdominal exam: Present soft; Absent distention, tenderness or guarding Extremities Exam Extremities exam: Present edema (1 + bilateral lower extremities) Back Exam Back exam: Present normal inspection Neurological Exam Neurological exam: Present alert, oriented X3 and CN II-XII intact; Absent motor sensory deficit Skin Skin exam: Present warm and dry; Absent rash HEART Score HEART Score HEART Score assessment performed?: Yes HEART Score: 5 Critical Care Critical Care Time Critical Care Time: No Medical Decision Making Butch Inquiry Pt receiving controlled substance: No Vital Signs Vital Signs: 04/16/25 09:41 04/16/25 09:43 04/16/25 10:00 Temperature 101.4 F H Temperature Source Oral Pulse Rate 107 H 104 H Pulse Rate [Right Radial] 113 H Respiratory Rate 25 H Blood Pressure 152/77 H 141/73 H Blood Pressure [Right Arm] 152/77 H Blood Pressure Mean [Right Arm] 102 Blood Pressure Source [Right Arm] Automatic Cuff Blood Pressure Position [Right Arm] Supine 02 Sat by Pulse Oximetry 78 L 70 L 87 L Oxygen Delivery Method Room Air Room Air Nasal Cannula Oxygen Flow Rate (LPM) 4 04/16/25 10:30 04/16/25 10:50 04/16/25 11:01 Temperature Temperature Source Pulse Rate 109 H 108 H 119 H Pulse Rate [Right Radial] Respiratory Rate Blood Pressure 138/73 131/64 129/102 H Blood Pressure [Right Arm] Blood Pressure Mean [Right Arm] Blood Pressure Source [Right Arm] Blood Pressure Position [Right Arm] 02 Sat by Pulse Oximetry 90 L 94 L Oxygen Delivery Method Nasal Cannula Nasal Cannula Oxygen Flow Rate (LPM) 5 5 04/16/25 11:15 04/16/25 11:30 Temperature Temperature Source Pulse Rate 109 H 109 H Pulse Rate [Right Radial] Respiratory Rate 13 13 Blood Pressure 125/62 109/59 L Blood Pressure [Right Arm] Blood Pressure Mean [Right Arm] Blood Pressure Source [Right Arm] Blood Pressure Position [Right Arm] 02 Sat by Pulse Oximetry 88 L 91 L Oxygen Delivery Method Oxygen Flow Rate (LPM) 5 Lab Data Labs: Lab Results 04/16/25 09:45: WBC 10.9 H, RBC 4.16 L, Hgb 11.6 L, Hct 37.1 L, MCV 89.2, MCH 27.9, MCHC 31.3 L, RDW 17.1, Plt Count 173, MPV 10.0, Neut % (Auto) 72.3, Lymph % (Auto) 17.4, Henderson % (Auto) 7.7, Eos % (Auto) 1.8, Baso % (Auto) 0.3, Neut # (Auto) 7.9 H, Lymph # (Auto) 1.9, Henderson # (Auto) 0.8, Eos # (Auto) 0.2, Baso # (Auto) 0.0, VBG pH 7.32, VBG pCO2 53.1 H, VBG pO2 53.7 H, VBG HCO3 26.8, VBG Total CO2 28.4 H, VBG O2 Saturation 87.7 H, VBG Base Excess 0.7, VBG Lactic Acid 1.0, Sodium 137, Potassium 5.2 H, Chloride 103, Carbon Dioxide 30, Anion Gap 9.2, BUN 29 H, Creatinine 2.30 H, Estimated Creat Clear 44, Estimated GFR 28 L, Est GFR ( Amer) 34 L, Glucose 103 H, Calcium 9.2, Total Bilirubin 0.6, AST 19, ALT 13, Alkaline Phosphatase 82, Troponin I 0.02, NT-Pro-B Natriuret Pep 322 H, Total Protein 7.2, Albumin 4.2, Globulin 3.0, Albumin/Globulin Ratio 1.4, HCV Ab TERESA w/Rflx PCR Qn Negative, HIV Ag/Ab Combo Qual Negative 04/16/25 10:02: SARS-CoV-2 (PCR) Not detected, Influenza A Untype (PCR) Not detected, Influenza Type B (PCR) Not detected 04/16/25 10:04: Chlamy pneumoniae PCR Not detected, Adenovirus (PCR) Not detected, B. pertussis DNA (PCR) Not detected, Coronavirus OC43 (PCR) Not detected, Coronavirus HKU1 (PCR) Not detected, Coronavirus 229E (PCR) Not detected, SARS-CoV-2 (PCR) Not detected, Coronavirus NL63 (PCR) Not detected, Human Metapneumovir PCR Not detected, Influenza A (H1) PCR Not detected, Influ A (H1N1/09) PCR Not detected, Influenza A (H3) PCR Not detected, Influenza Type A (PCR) Not detected, Influenza Type B (PCR) Not detected, M. pneumoniae (PCR) Not detected, Parainfluenza 1 (PCR) Not detected, Parainfluenza 2 (PCR) Not detected, Parainfluenza 3 (PCR) Not detected, Parainfluenza 4 (PCR) Not detected, RSV (PCR) Not detected, Entero/Rhino (PCR) Not detected 04/16/25 11:06: Urine Color Yellow, Urine Appearance Clear, Urine pH 6.0, Ur Specific [place] 1.020, Urine Protein Trace, Urine Glucose (UA) Negative, Urine Ketones Negative, Urine Blood Negative, Urine Nitrate Negative, Urine Bilirubin Negative, Urine Urobilinogen 0.2, Ur Leukocyte Esterase Negative 04/16/25 09:45 04/16/25 09:45 Response Orders (Tests/Meds): ED MEDICATIONS Generic Name Dose Route Start Last Admin Trade Name Freq PRN Reason Stop Dose Admin Albuterol/Ipratropium 9 ml 04/16/25 10:00 04/16/25 11:20 Ipratropium/Albuterol 3 Ml Neb IH 05/16/25 09:59 Not Given Q1H ARNOLDO Piperacillin Sod/Tazobactam 100 mls @ 200 mls/hr 04/16/25 10:15 04/16/25 10:42 Sod 4.5 gm/ Sodium Chloride IV 04/26/25 10:14 200 mls/hr Q6H ARNOLDO Administration Azithromycin 500 mg/ Sodium 250 mls @ 250 mls/hr 04/16/25 11:45 Chloride IV 04/26/25 11:44 Q24H ARNOLDO Discontinued Medications Generic Name Dose Route Start Last Admin Trade Name Freq PRN Reason Stop Dose Admin Acetaminophen 1,000 mg 04/16/25 11:23 04/16/25 11:32 Acetaminophen 500mg Tab PO 04/16/25 11:24 1,000 mg ONCE ONE Administration Methylprednisolone Sodium Succinate 125 mg 04/16/25 09:55 04/16/25 10:03 Methylprednisolone Sod Succ 125mg Vial IV 04/16/25 09:56 125 mg ONCE ONE Administration ORDERS Category Date Time Status Chest XR 2 view (NOT portable) [XR chest 2V] Stat Exams 04/16/25 09:55 Taken Complete Blood Count Auto Diff Stat Lab 04/16/25 09:45 Completed Comprehensive Metabolic Panel Stat Lab 04/16/25 09:45 Completed Full Resp Panel w/COVID ([facility]) Routine Lab 04/16/25 10:04 Completed HIV Combo Stat Lab 04/16/25 09:45 Completed Hepatitis C Ab Qual. W/ RFX Stat Lab 04/16/25 09:45 Completed NT Pro Brain Natriuretic Pep. Stat Lab 04/16/25 09:45 Completed Rapid PCR Covid and Flu A/B Stat Lab 04/16/25 10:02 Completed Troponin I Q3H Lab 04/16/25 13:00 Ordered Troponin I Q3H Lab 04/16/25 16:00 Ordered Troponin I Stat Lab 04/16/25 09:45 Completed Urinalysis and Microscopic Stat Lab 04/16/25 11:06 Results Blood Culture Stat Micro 04/16/25 09:45 Received Venous Blood Gas Routine RT 04/16/25 09:45 Completed MDM Narrative Medical Decision Narrative: In summary, this 74-year-old male presents to the emergency department today with sleepiness. On initial evaluation patient is hypoxic tachycardic, febrile, mildly hypertensive baseline mental status. Differential diagnosis includes but is not limited to COPD exacerbation worsening malignancy ACS hypoglycemia, sepsis secondary to pneumonia, PE. Based on these concerns, I ordered VBG [id number] glucose blood cultures UA CBC CMP troponin BNP. Per chart review was recently admitted to for acute hypoxic respiratory failure requiring intubation and discharged from March 18. ECG personally interpreted demonstrates sinus tachycardia no ST elevation ST depression or T wave inversions concerning for ischemia Patient received Methylpred 3 DuoNebs Tylenol Zosyn and azithromycin for treatment. Labs personally reviewed demonstrate leukocytosis BETTY negative for COVID flu. XR personally interpreted demonstrates bilateral opacities concerning for worsening metastatic disease versus pneumonia. I had an interactive discussion with hospital medicine with recommendations adding vancomycin and admission for acute hypoxic respiratory failure
--- NOTE | 2025-04-16 09:42 | ECG_ITS ---
APPROVED REPORT Exam: Resting ECG HR:103 bpm ECG Measurements Heart Rate 103 AXES MA 167 P 65 QRSd 133 QRS 91 QT 329 T 46 QTc 389 Conclusion SINUS TACHYCARDIA INDETERMINATE AXIS RIGHT BUNDLE BRANCH BLOCK [120+ ms QRS DURATION, UPRIGHT V1, 40+ ms S IN I/aVL/V4/V5/V6] ABNORMAL ECG UNCONFIRMED REPORT Electronically signed by : GLORIA WANYE, 04/17/2025 02:40:05
--- OUTSIDE RECORDS SUMMARY | 2025-04-16 09:46 | XMS_ITS | Encounter Summary ---
Author Organization Healthcare Address [address] [place] [address] Care Team Providers Care Picker Machine Operator Name Role Phone Joycelyn Montes PANKAJ Primary Care Provider [phone] Brinda Pineda LPN Unavailable Unavailable Encounter Details Date Type Department Care Team (Late st Contact Info) Description 02/23/2024 Orders Only External Location [address] [place] [address] Olga Shin MD [address] [place] [address] Social History Tobacco Use Types Packs/Day Years Used Date Smoking Tobacco: Never Assessed Sex and Gender Information Value Date Recorded Sex Assigned at Not on file Legal Sex Male 7:51 PM EDT Gender Identity Not on file Sexual Orientation Not on file documented as of this encounter Plan of Treatment Not on file documented as of this encounter Procedures Procedure Name Priority Date/Time Associated Diagnosis Comments CT OUTSIDE IMAGES 02/23/2024 1:42 PM EDT documented in this encounter Results * CT OUTSIDE IMAGES (02/23/2024 1:42 PM EDT) Anatomical Region Laterality Modality Computed Tomogra phy 02/23/2024 1:42 PM EDT us Olga Linares MD IMG CT PROCEDURES Final Resu lt documented in this encounter Visit Diagnoses Not on filedocumented in this encounter Additional Health Concerns Infection Onset Date Last Indicated Resolved Time COVID-19 Rule-Out 03/12/2025 03/12/2025 03/12/2025 10:09 PM EDT Respiratory Rule-Out 03/12/2025 03/12/2025 025 1:10 AM EDT Tuberculosis Rule-Out Comment:Per [facility] chat with Lay Clark, on 03/15/25 @ [phone], there is no concern for TB. - Aryaannel Ravindra 03/13/2025 03/13/2025 03/13/2025 11:31 AM EDT documented as of this encounter Care Teams Picker Machine Operator Relationship Specialty Start Date End Date Joycelyn Montes PA [address] [place] [address] PCP - General 04/01/23 Brinda Pineda LPN [employer]ED [employer] [place] [address] TCM Nurse 03/18/25 documented as of this encounter
--- OUTSIDE RECORDS SUMMARY | 2025-04-16 09:46 | XMS_ITS ---
Author Organization [facility] Address [address] [place] [address] Care Team Providers Care Counterperson Name Role Phone Joycelyn Montes Primary Care Provider [phone] Brinda Pineda LPN Unavailable Unavailable Transitional Care Management Status:Active (Active) Start date:03/18/2025 Enrollment date:03/18/2025 Enrollment reason:Identified using hospital discharge data Overview This episode type is for outpatient care managers enrolling patients in the [facility] Transitional Care Management program. Case Team Name Relationship Phone Brinda Pineda LPN(Responsible Staff) TCM Nurse Continued Care and Services Coordination
--- OUTSIDE RECORDS SUMMARY | 2025-04-16 09:47 | XMS_ITS | Encounter Summary ---
Author Organization Healthcare Address [address] [place] [address] Care Team Providers Care Interior Systems Carpenter Name Role Phone Denis Montesie Mario Alberto LIRA Primary Care Provider [phone] Encounter Details Date Type Department Care Team ([facility] st Contact Info) Description 03/12/2025 Orders Only External Location [address] [place] [address] Provider, External Social History Tobacco Use Types Packs/Day Years [...] and Family Not on file 03/15/2025 Attends [employer] Services Not on file 03/15 Active Member [...] money to buy more. Never true 03/15/20 Within the past 12 months, t he [...] any time in the past 12 m [facility], were you homeless or living in a fci (including now)? No 03/15/2025 Utilities Answer Date Recorded In the past 12 months has th e [employer], gas, oil, or water [employer] threatened to shut off services in your home? No 03/15/2025 Sex and Gender Information Value Date Recorded Sex Assigned at Not on file Legal Sex Male 7:51 PM EDT Gender Identity Not on file Sexual Orientation Not on file documented as of this encounter Functional Status * Calculated C-SSRS Risk Score (Lifetime/Recent) Answer Date of Assessment Author No Risk Indicated 03/16/2025 8:00 AM EDT Shaista Felix RN * Question Answer Date of Assessment Author 1. Wish to be (Past 1 Month) No 03/16/2025 8:00 AM EDT Shaista Guzman RN 2. Non-Specific Active Suici андрей Thoughts (Past 1 Month) No 03/16/2025 8:00 AM EDT Beto Guzman RN 6. Suicidal Behavior (Lifetime) No 8:00 AM EDT Shaista Guzman RN documented as of this encounter Plan of Treatment Not on file documented as of this encounter Procedures Procedure Name Priority Date/Time Associated Diagnosis Comments CT NEURO OUTSIDE IMAGES 03/12/2025 5:29 PM EDT documented in this encounter Results * CT NEURO OUTSIDE IMAGES (03/12/2025 5:29 PM EDT) Anatomical Region Laterality Modality Computed Tomogra phy 03/12/2025 5:29 PM EDT us External Provider IMG CT PROCEDURES Final Result documented in this encounter Visit Diagnoses Not on filedocumented in this encounter Additional Health Concerns Infection Onset Date Last Indicated Resolved Time COVID-19 Rule-Out 03/12/2025 03/12/2025 03/12/2025 10:09 PM EDT Respiratory Rule-Out 03/12/2025 03/12/2025 025 1:10 AM EDT Tuberculosis Rule-Out Comment:Per Epic chat with Lay Clark DO on 03/15/25 @ [phone], there is no concern for TB. - Grover Waite 03/13/2025 03/13/2025 03/13/2025 11:31 AM EDT Assessment Noted Time A fall risk assessment has been complete d for the patient 04/07/2024 2:13 PM EDT A Body Mass Index follow-up plan has been documented for the patient 03/17/2025 11:22 AM EDT documented as of this encounter Care Teams Interior Systems Carpenter Relationship Specialty Start Date End Date Joycelyn Montes PA [address] [place] [address] PCP - General 04/01/23 documented as of this encounter
--- OUTSIDE RECORDS SUMMARY | 2025-04-16 09:47 | XMS_ITS | Encounter Summary ---
Author Organization Healthcare Address [address] [place] [address] Care Team Providers Care Reports Analysis Manager Name Role Phone Denis Montesie Mario Alberto LIRA Primary Care Provider [phone] Encounter Details Date Type Department Care Team ([facility] st Contact Info) Description 03/12/2025 Orders Only External Location [address] [place] [address] Provider, External Social History Tobacco Use Types [...] and Family Not on file 03/15/2025 Attends [employer] Services Not on file 03/15 Active Member [...] any time in the past 12 m [facility], were you homeless or living in a fpc (including now)? No 03/15/2025 Utilities Answer Date Recorded In the past 12 months has th e [employer], gas, oil, or water [employer] threatened to shut off services in your [...] with Lay Clark DO on 03/15/25 @ [phone], there is no concern for TB. - Grover Waite 03/13/2025 03/13/2025 03/13/2025 11:31 AM EDT Assessment Noted Time A fall risk assessment has been complete d for the patient 04/07/2024 2:13 PM EDT A Body Mass Index follow-up plan has been documented for the patient 03/17/2025 11:22 AM EDT documented as of this encounter Care Teams Reports Analysis Manager Relationship Specialty Start Date End Date Joycelyn Montes PA [address] [place] [address] PCP - General 04/01/23 documented as of this encounter
--- OUTSIDE RECORDS SUMMARY | 2025-04-16 09:47 | XMS_ITS ---
Author Organization 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 Past Treatment and Therapy Plans No past plan information found. Lifetime Dose Tracking * Chemical Lifetime Dose Automatic Entry Manual Entr y Fluoro Time 1.02 minutes 1.02 minutes 0 minutes Air Kerma 40.1 mGy 40.1 mGy 0 mGy
--- OUTSIDE RECORDS SUMMARY | 2025-04-16 09:47 | XMS_ITS | Encounter Summary ---
Author Organization [facility] Address [address] [place] [address] Care Team Providers Care Thermal Cutter Hand Name Role Phone SimonJoycelyn PANKAJ Primary Care Provider Brinda Pineda LPN Unavailable Unavailable Reason for Visit * Reason Comments Follow-up Encounter Details Date Type Department Care Team (Late st Contact Info) Description 03/25/2025 Patient Outreach POPULATION HEALTH [address] [facility], [address] [place] [address] Brinda Pineda LPN [employer] [place] [address] Follow-up Social History Tobacco Use Types Packs/Day Years [...] any time in the past 12 m [facility], were you homeless or living in a nursing home (including now)? No 03/15/2025 Utilities Answer [...] on file documented as of this encounter Miscellaneous Notes * Progress Notes - Brinda Pineda LPN - 03/25/2025 11:04 AM EDT 03/25/2025 TCM Follow-up Call Patient reached: Yes Outcome: ANGELO nurse follow up call placed to patient. He advised that he is doing fine, back in the shop working. He has been trying for 2 weeks to schedule an appointment with PCP; no answer, computers are down, etc. Patient will continue to reach out, declined assistance from ANGELO nurse. No other concerns voiced, thankful for the follow up call. Action: N/A documented in this encounter Plan of Treatment Not on file documented as of this encounter Visit Diagnoses Not on filedocumented in this encounter Additional Health Concerns Assessment Noted Time A fall risk assessment has been complete d for the patient 04/07/2024 2:13 PM EDT A Body Mass Index follow-up plan has been documented for the patient 03/17/2025 11:22 AM EDT documented as of this encounter Care Teams Thermal Cutter Hand Relationship Specialty Start Date End Date Joycelyn Montes PA [address] [place] [address] PCP - General 04/01/23 Brinda Pineda LPN [employer] [place] [address] TCM Nurse 03/18/25 documented as of this encounter
--- OUTSIDE RECORDS SUMMARY | 2025-04-16 09:47 | XMS_ITS | Encounter Summary ---
Author Organization [facility] Address [address] [place] [address] Care Team Providers Care Electrical Controls Engineer Name Role Phone SimonJocyelyn PANKAJ Primary Care Provider [phone] Brinda Pineda LPN Unavailable Unavailable Reason for Visit * Reason Comments TCM Call Encounter Details Date Type Department Care Team (Late st Contact Info) Description 03/18/2025 Patient Outreach POPULATION [facility] [address] [facility] [address], [address] [place] [address] Brinda Pineda LPN [employer] [place] [address] TCM Call Social History Tobacco Use Types Packs/Day Years [...] and Family Not on file 03/15/2025 Attends [employer] Not on file 03/15 Active Member [...] any time in the past 12 m [facility], were you homeless or living in a group home (including now)? No 03/15/2025 Utilities Answer [...] Progress Notes - Brinda Pineda LPN - 03/18/2025 8:38 AM EDT Admit Date: 03/12/2025 Discharge Date: 03/17/2025 Hospital Service: Hospital Medicine Discharge Diagnosis: Acute hypoxic on chronic hypercapnic respiratory failure 03/18/2025 TCM call # 1 Patient Reached: Yes Outcome: ANGEOL nurse reached out to patient regarding recent hospitalization and follow up care. Overall, he is doing better. Patient denied SOA/difficulty breathing, cough, congestion or fever. O2 @ 4L per N/C primarily when napping and at bedtime. No symptoms and/or complaints voiced. Patient is independent with ambulation and ADLs, eating and drinking adequately. He received a copy of his discharge summary, reviewed post discharge instructions. Medication reconciliation complete, patient is aware of start/stop medications listed below. He plans to reach out to local Route Delivery Service Driver regarding dosage change of Aspirin. SDOH assessment is up to date, no issue with transportation. No upcoming appointments scheduled at [facility]. Patient does not have an appointment with PCP, will schedule appointment, declined assistance in scheduling. Action: Follow up call in approximately one week. Medication changes: Per AVS: Start taking: Aspirin 81 mg daily. Stop taking: Aspirin 325 mg daily. ANGELO appointment: Patient to schedule an appointment with PCP. Items to address at ANGELO: N/A documented in this encounter Plan of [...] documented as of this encounter Care Teams Electrical Controls Engineer Relationship Specialty Start Date End Date Joycelyn Montes PA [address] [place] [address] PCP - General 04/01/23 Brinda Pineda LPN [employer] [place] [address] TCM Nurse 03/18/25 documented as of this encounter
--- OUTSIDE RECORDS SUMMARY | 2025-04-16 09:47 | XMS_ITS | Clinical Summary ---
Author Organization [facility] [place] [address] Care Team Providers Care Client Application Support Engineer Name Role Phone Joycelyn Montes PANKAJ Primary Care Provider Brinda Pineda LPN Unavailable Unavailable Allergies Active Allergy Reactions Criticality Noted Date Comments Fluticasone Unknown - Patient st ates they do not know rxn details Low 03/12/2025 Medications tadalafil (Cialis) 5 MG tablet Take 1 tablet by mouth every morning. 4 Active tamsulosin (Flomax) 0.4 MG 24 hr capsule Take 1 capsule by mouth nightly. 4 Active allopurinol (Zyloprim) 300 MG tablet TAKE 1 TABLET BY MOUTH DAILY FOR GOUT Active amLODIPine (Norvasc) 10 MG tablet Take 1 tablet by mouth nightly. 4 Active albuterol 108 (90 Base) MCG/ACT inhaler INHALE 2 PUFFS BY MOUTH EVERY 4 TO 6 HOURS NEEDED FOR SHORTNESS OF BREATH Active atorvastatin (Lipitor) 20 MG tablet Take 1 tablet by mouth daily. 4 Active gabapentin (Neurontin) 600 MG tablet Take 1 tablet by mouth 4 times a day. 4 Active HYDROcodone-tonya taminophen ([place]) 10-325 MG tablet Take 1 tablet by mouth every 6 hours as needed. Active pantoprazole (Protonix) 40 MG EC tablet Take 1 tablet by mouth daily. Active amitriptyline (Elavil) 25 MG tablet Take 1 tablet by mouth nightly. Active dicyclomine (Bentyl) 10 MG capsule Take 1 capsule by mouth 2 times a day. Active linaGLIPtin (Tradjenta) 5 MG tablet Take 1 tablet by mouth daily. Active tiotropium (Spiriva HandiHaler) [address] 1 capsule into inhaler and inhale daily. 30 capsule Active aspirin 81 MG chewable tablet Chew 1 tablet daily. Active Active Problems Problem Noted Date Diagnosed Date [...] infarction 01/03/2016 Hyperlipidemia 01/03/2016 Knee pain 01/03/2016 Encounters Date Type Department Care Team Description 03/25/2025 Patient Outreach [facility] [address] [place] [address], [address] [place] [id number] Brinda Pineda LPN Follow-up 03/18/2025 Patient Outreach [address], [address] [place] [address] Brinda Pineda LPN TCM Call 03/14/2025 Travel 03/13/2025 Travel 03/12/2025 8:41 PM EDT - 03/17/2025 11:49 AM EDT Hospital Encounter PAV A Inpatient [address] [place] [address] The, MD Choco Blanchard, MD Brain Gaytan, MD Yola Mayorga, MD Neto Zapata Muzna, MD Kirk, Bernardo Hensley MD Pneumonia of right lung due to infectious organism, unspecified part of lung (Primary Dx); Acute hypoxic respiratory failure; Acute hypoxic on chronic hypercapnic respiratory failure; Lung mass; Pulmonary emphysema, unspecified emphysema type (CMS/HCC); Small cell carcinoma of right lung, unspecified part of lung Discharge Disposition: Home-Health Care Svc 03/12/2025 Travel 03/12/2025 Orders Only External Location [address] [place] [address] Provider, External 03/12/2025 Orders Only External Location [address] [place] [address] Provider, External 03/12/2025 Orders Only External Location [address] [place] [address] Provider, External 03/12/2025 Orders Only External Location [address] [place] [address] Provider, External 03/12/2025 Orders Only External Location [address] [place] [address] Provider, External from Last 3 Months Immunizations Immunization Administration Dates Next Due Influenza, High-dose, Split Virus, Trivalent, Injectable, preservative free 07/23/2024 Influenza, Unspecified 07/10/2018 Influenza, high-dose, quadrivalent 08/11,06/20/2022,08/06/2021,07/18,07/23/2016 Influenza, intradermal, quad rivalent, preservative free 07/27/2017 Influenza, seasonal, injecta ble, preservative free 07/01/2017 Influenza, trivalent, adjuvanted 06/27/2020 Pneumococcal Conjugate PCV 13 07/27/2017 Pneumococcal Polysaccharide PPV23 08/11/2019,02/2017 Td (adult), 5 Lf tetanus tox oid, preservative free, adsorbed 11/23/2017 Zoster, Recombinant 04/10/2024,08/11/2023 Family History Medical History Relation Name Comments Anesthesia problems Neg Hx Malig Hyperthermia Neg Hx Social History Tobacco Use Types Packs/Day Years [...] and Family Not on file 03/15/2025 Attends Confucianism Services Not on file 03/15 Active Member [...] were you homeless or living in a mcfp (including now)? No 03/15/2025 Utilities Answer Date Recorded In the past 12 months has [employer], gas, oil, or water Sustaination threatened to shut off services in your home? No 03/15/2025 Sex and Gender Information Value Date Recorded Sex Assigned at Not on file Legal Sex Male 7:51 PM EDT Gender Identity Not on file Sexual Orientation Not on file Last Filed Vital Signs Vital Sign Reading [...] Mass Index 34.2 03/15/2025 7:00 AM EDT Plan of Treatment Health Maintenance Due Date Last Done Comments [facility]-/Child/Adol SDOH Screenings 1950 Diabetes: Dental Exam 1962 CT Colonography 1997 Colonoscopy 1997 FIT-DNA 1997 FIT 1997 FOBT 1997 Sigmoidoscopy 1997 [facility]-Colorectal Cancer Screening 1997 [facility]-RSV Vaccine: 60+ Years or (1 - Risk 60-74 years 1-dose series) 2012 [facility]-DTaP,Tdap,and Td Vaccines (1 - Tdap) 11/24/2017 11/23/2017 [facility]-Abdominal Aortic Aneurysm (AAA) Screening 2017 [facility]-Diabetes: Hemoglobin A1C 01/30/202004/2019, 04/30/2019, 10/23/2018, Additional history exists [facility]-Medicare Annual Wellness (AWV) 05/07/2020 05/07/2019 [id number] Vaccine (5 - Pfizer risk 2023- season) 2025 07/23/2024, 09/26/2021, 02/14/2021, Additional history exists [facility]-Depression Screening 04/07/2025 04/07/2024 [facility]- SDOH Screenings 09/15/2025 [facility]-Adult SDOH Screenings 09/15/2025 03/15/2025 [facility]-Pneumococcal Vaccine: 50+ Years Completed 08/11/2019, 07/27/2017, 07/01/2017 [facility]-Zoster Vaccines Completed 04/10/2024, [facility]-Influenza Vaccine Completed 07/23/2024 , 08/11/2023, 06/20/2022, Additional history exists [facility]-Hepatitis C Screening Completed 03/12/2025, [facility]-Obesity Intervention Completed 03/12/2025, 03/27 HPV Vaccines Aged Out No longer eligi ble based on patient's age to complete this topic [facility]-HIB Vaccines Aged Out No longer e ligible based on patient's age to complete this topic [facility]-Hepatitis A Vaccines Aged Out No longer eligible based on patient's age to complete this topic [facility]-IPV Vaccines Aged Out No longer e ligible based on patient's age to complete this topic [facility]-Rotavirus Vaccines Aged Out No lo nger eligible based on patient's age to complete this topic Medical Devices Implanted Type Area Continuous Crusher Operator Device Identifier Shelf Expiration Date Model / Serial / Lot Stent Ureteral Double Pigtail Pos 6fr 24cm - Sn/A - [id number] Implanted:Qty: 1 on 04/27/2024 by Malik Dunaway MD at [facility] Stent Right: [id number] 10/09/2025 [id number] / N/A / [id number] Procedures Procedure Name Priority Date/Time Associated Diagnosis Comments POCT GLUCOSE METER UNSOLICITED RESULTS Routine 03/17/2025 8:31 AM EDT BASIC METABOLIC PANEL, PLASMA Routine 03/17/2025 5:29 AM EDT CBC W/O DIFFERENTIAL Routine 03/17/2025 5:29 AM EDT BLOOD GAS PANEL, VENOUS Routine 03/17/20 5:29 AM EDT POCT GLUCOSE METER UNSOLICITED [...] NON-INVASIVE VENTILATION Routine 03/16/2025 8:00 AM EDT BASIC METABOLIC PANEL, PLASMA Routine 03/16/2025 6:07 AM EDT CBC W/O DIFFERENTIAL Routine 03/16/2025 6:07 AM EDT BLOOD GAS PANEL, VENOUS Routine 03/16/20 6:07 AM EDT POCT GLUCOSE METER UNSOLICITED [...] UNSOLICITED RESULTS Routine 03/15/2025 6:29 AM EDT BASIC METABOLIC PANEL, PLASMA Routine 03/15/2025 3:27 AM EDT CBC W/O DIFFERENTIAL Routine 03/15/2025 3:27 AM EDT BLOOD GAS PANEL, VENOUS Routine 03/15/20 3:27 AM EDT BLOOD GAS PANEL, VENOUS [...] UNSOLICITED RESULTS Routine 03/14/2025 12:03 PM EDT [place] [facility], E/M 30-74 MINUTES Routine 03/14/2025 7:18 AM EDT Acute hypoxic respiratory failure Pneumonia of right lung due to infectious organism, unspecified part of lung Lung mass POCT GLUCOSE METER UNSOLICITED RESULTS Routine 03/14/2025 6:23 AM EDT MR HEAD WO IV CONTRAST STAT 1:55 AM EDT BASIC METABOLIC PANEL, PLASMA Routine 03/14/2025 12:34 AM EDT CBC W/O DIFFERENTIAL Routine 03/14/2025 12:34 AM EDT BLOOD GAS PANEL, VENOUS Routine 03/14/20 12:34 AM EDT TRIGLYCERIDES, PLASMA STAT 03/14/2025 12:34 AM EDT POCT GLUCOSE METER UNSOLICITED RESULTS Routine 03/14/2025 12:30 AM EDT POCT GLUCOSE METER UNSOLICITED RESULTS Routine 03/13/2025 6:25 PM EDT VENTILATOR - ADULT Routine 03/13/2025 3: 23 PM EDT VENTILATOR - ADULT Routine 03/13/2025 3: 23 PM EDT POCT GLUCOSE METER UNSOLICITED RESULTS Routine 03/13/2025 12:14 PM EDT NON-GYNECOLOGIC CYTOLOGY Routine 03/13/2025 11:34 AM EDT BODY FLUID, CYTOSPIN, PATHOLOGIST INTERPRETATION Routine 03/13/2025 11:34 AM EDT PNEUMOCYSTIS JIROVECII BY PCR (SO) Routine 03/13/2025 11:34 AM EDT ASPERGILLUS GALACTOMANNAN BAL (SO) Routine 03/13/2025 11:34 AM EDT BRONCHOALVEOLAR LAVAGE CELL COUNT W/ DIFF Routine 03/13/2025 11:34 AM EDT BAL COMPREHENSIVE RESPIRATORY PANEL BY PCR Routine 03/13/2025 11:34 AM EDT FUNGAL CULTURE, RESPIRATORY AND ADAIR Routine 03/13/2025 11:34 AM EDT AFB CULTURE, RESPIRATORY SOURCE AND ACID FAST STAIN Routine 03/13/2025 11:34 AM EDT QUANTITATIVE BAL/PAL/BRONCH WASH CULTURE AND GRAM STAIN Routine 03/13/2025 11:34 AM EDT BEDSIDE BRONCHOSCOPY Routine 03/13/2025 10:30 AM EDT Acute hypoxic respiratory failure END TIDAL CO2 MONITORING Routine 03/13/2025 8:00 AM EDT [place] [facility], E/M 30-74 MINUTES Routine 03/13/2025 [...] LACTATE, VENOUS Routine 03/13/2025 12:57 AM EDT COMPREHENSIVE METABOLIC PANEL, PLASMA Routine 03/13/2025 12:57 AM EDT BLOOD GAS PANEL, VENOUS Routine 03/13/20 12:57 AM EDT PHOSPHORUS, PLASMA Routine 03/13/2025 12 :57 AM EDT MAGNESIUM, PLASMA Routine 03/13/2025 12: 57 AM EDT IONIZED CALCIUM, SERUM Routine 12:57 AM EDT CBC W/O DIFFERENTIAL Routine 03/13/2025 12:57 AM EDT VENTILATOR - ADULT Routine 03/13/2025 12 :39 AM EDT URINALYSIS MICROSCOPIC FOR UA REFLEX Routine 03/12/2025 11:05 PM EDT OPIATES, LCMSMS, URINE Routine 11:05 PM EDT FENTANYL, URINE Routine 03/12/2025 11:05 PM EDT URINALYSIS WITH REFLEX MICROSCOPIC Routine 03/12/2025 11:05 PM EDT DRUG ABUSE SCREEN, URINE Routine 03/12/2025 11:05 PM EDT MULTI DRUG RESISTANCE TEST Routine 03/12/2025 10:18 PM EDT SHONA AURIS SURVEILLANCE BY PCR Routine 03/12/2025 10:18 PM EDT POTASSIUM, PLASMA Routine 03/12/2025 10: 17 PM EDT TROPONIN T, HIGH SENSITIVITY, 2 HOUR, PLASMA Timed 03/12/2025 10:17 PM EDT POCT GLUCOSE METER UNSOLICITED RESULTS Routine 03/12/2025 10:14 PM EDT XR ABDOMEN 1 VIEW STAT 03/12/2025 9:2 1 PM EDT XR CHEST 1 VIEW STAT 03/12/2025 9:21 PM EDT BLOOD CULTURE (AEROBIC/ANAEROBIC SET) STAT 03/12/2025 9:12 PM EDT METHEMOGLOBIN STAT 03/12/2025 9:07 PM EDT BLOOD CULTURE (AEROBIC/ANAEROBIC SET) STAT 03/12/2025 9:07 PM EDT SBT - SPONTANEOUS BREATHING TRIAL Routine 03/12/2025 9:02 PM EDT END TIDAL CO2 MONITORING Routine 03/12/2025 9:02 PM EDT END TIDAL CO2 MONITORING Routine 03/12/2025 9:02 PM EDT END TIDAL CO2 MONITORING Routine 03/12/2025 9:02 PM EDT VENTILATOR - [...] ECG ADULT STAT 03/12/2025 8:49 PM EDT C-REACTIVE PROTEIN, PLASMA Add-On 03/12/2025 8:48 PM EDT TSH REFLEX FT4 Add-On 03/12/2025 8:48 PM EDT EXTRA TUBE LIGHT GREEN TOP Routine 03/12/2025 8:48 PM EDT EXTRA TUBE LIGHT BLUE TOP Routine 03/12/2025 8:48 PM EDT EXTRA TUBES Routine 03/12/2025 8:48 PM EDT ED HIV 1/2 ANTIBODY/ANTIGEN SCREEN WITH REFLEX TO HIV I/II DIFFERENTIATION STAT 03/12/2025 8:48 PM EDT ED PROTOCOL HIV 1/2 ANTIBODY/ANTIGEN SCREEN W/REFLEX TO HIV 1/2 ANTIBODY DIFFERENTIATION STAT 03/12/2025 8:48 PM EDT HEPATITIS C ANTIBODY - ED W/REFLEX TO HCV QUANT PCR STAT 03/12/2025 8:48 PM EDT PROCALCITONIN, PLASMA STAT 03/12/2025 8:48 PM EDT TROPONIN T, HIGH SENSITIVITY, 0 HOUR, PLASMA, REFLEX TO 2 HOUR STAT 03/12/2025 8:48 PM EDT MAGNESIUM, PLASMA STAT 03/12/2025 8:4 8 PM EDT COMPREHENSIVE METABOLIC PANEL, PLASMA STAT 03/12/2025 8:48 PM EDT PROTHROMBIN TIME(PT) / INR STAT 03/12/2025 8:48 PM EDT CBC WITH AUTO DIFFERENTIAL STAT 03/12/2025 8:48 PM EDT POCT VENOUS BLOOD GAS GEM UNSOLICITED RESULTS Routine 03/12/2025 8:41 PM EDT [place] [facility], ADDL 30 MIN Routine 03/12/2025 8:[address] THORACIC OUTSIDE IMAGES 03/12/2025 5:[address] ABDOMEN OUTSIDE IMAGES 03/12/2025 5:[address] NEURO OUTSIDE IMAGES 03/12/20 25 5:[address] NEURO OUTSIDE IMAGES 03/12/20 25 5:[address] NEURO OUTSIDE IMAGES 03/12/20 25 5:23 PM EDT from Last 3 Months Results * POCT glucose meter (03/17/2025 8:31 AM EDT) Only the most recent of21 resultswithin the time period is included. POCT Glucose 99 74 - 99 mg/dL 03/17/2025 8:33 AM EDT [facility] Comment:Accuracy of a glucos e result [...] Comment 03/17/2025 8:33 AM EDT [facility] Metal Filer ID Lindsey Zamora 03/17/2025 8:33 AM EDT HEALTHCARE LAB Device ID [id number] 03/17/2025 8:33 AM EDT [facility] Specimen Type POC Capillary 03/17/2025 8:33 AM EDT [facility] Blood Capillary blood specimen / Unknown 03/17/2025 8:31 AM EDT 03/17/2025 8:33 AM EDT us Bernardo Chavez MD LAB POINT OF CARE TE ST DOCKED DEVICE UNSOLICITED RESULTS Final Result [facility] [address] [place] [address] * (ABNORMAL) CBC W/O Differential (03/17/2025 5:29 AM EDT) Only the most recent of5 resultswithin the time period is included. WBC Count 7.19 3.70 - 10.30 10*3/uL LAB HEMATOLOGY METHOD 03/17/2025 5:52 AM EDT [facility] RBC Count 4.43(L) 4.60 - 6.10 10*6/uL LAB HEMATOLOGY METHOD 03/17/2025 5:52 AM EDT [facility] HGB 11.9(L) 13.7 - 17.5 g/dL LAB HEMATOLOGY METHOD 03/17/2025 5:52 AM EDT [facility] HCT 39.1(L) 40.0 - 51.0 % LAB HEMATOLOGY METHOD 03/17/2025 5:52 AM EDT [facility] Platelet Count 188 155 - 369 10*3/uL LAB HEMATOLOGY METHOD 03/17/2025 5:52 AM EDT [facility] MCV 88 79 - 98 fL LAB HEMATOLOGY METHOD 03/17/2025 5:52 AM EDT [facility] MCH 26.9 26.0 - 32.0 pg LAB HEMATOLOGY METHOD 03/17/2025 5:52 AM EDT [facility] MCHC 30.4(L) 30.7 - 35.5 g/dL LAB HEMATOLOGY METHOD 03/17/2025 5:52 AM EDT [facility] RDW 16.7(H) 11.5 - 14.5 % LAB HEMATOLOGY METHOD 03/17/2025 5:52 AM EDT [facility] MPV 10.1 8.8 - 12.5 fL LAB HEMATOLOGY METHOD 03/17/2025 5:52 AM EDT [facility] nRBC 0.0 <=0.0 per 100 WBCs LAB HEMATOLOGY METHOD 03/17/2025 5:52 AM EDT [facility] Blood Venous blood specimen / Unknown Venipuncture / Unknown 03/17/2025 5:29 AM EDT 03/17/2025 5:44 AM EDT us Gt De La Paz MD LAB BLOOD ORDERABLES Final Res ult [facility] [address] [place] [address] * (ABNORMAL) Blood gas panel, venous (03/17/2025 5:29 AM EDT) Only the most recent of7 resultswithin the time period is included. pH, Venous 7.35 7.32 - 7.43 LAB HEMATOLOGY METHOD 03/17/2025 5:39 AM EDT [facility] pCO2, Venous 59(H) 40 - 55 mmHg LAB HEMATOLOGY METHOD 03/17/2025 5:39 AM EDT [facility] pO2, Venous 71(H) 25 - 40 mmHg LAB HEMATOLOGY METHOD 03/17/2025 5:39 AM EDT [facility] SO2, Measured, Venous 95(H) 65 - 80 % LAB HEMATOLOGY METHOD 03/17/2025 5:39 AM EDT [facility] Base Excess, Venous 5.5(H) -2.0 - 3.0 mmol/L LAB HEMATOLOGY METHOD 03/17/2025 5:39 AM EDT [facility] Bicarbonate, Calculated, Venous 33(H) 22 - 26 mmol/L LAB HEMATOLOGY METHOD 03/17/2025 5:39 AM EDT [facility] Hematocrit, Whole Blood 37.2(L) 40.0 - 51.0 % LAB HEMATOLOGY METHOD 03/17/2025 5:39 AM EDT [facility] Sodium, Whole Blood 139 136 - 145 mmol/L LAB HEMATOLOGY METHOD 03/17/2025 5:39 AM EDT [facility] Potassium, Whole Blood 4.6 3.6 - 4.9 mmol/L LAB HEMATOLOGY METHOD 03/17/2025 5:39 AM EDT [facility] Chloride, Whole Blood 103 97 - 107 mmol/L LAB HEMATOLOGY METHOD 03/17/2025 5:39 AM EDT [facility] Glucose, Whole Blood 88 74 - 99 mg/dL LAB HEMATOLOGY METHOD 03/17/2025 5:39 AM EDT [facility] Lactate, Venous, Whole Blood 0.8 0.5 - 2.2 mmol/L LAB HEMATOLOGY METHOD 03/17/2025 5:39 AM EDT [facility] Ionized Calcium, Whole Blood 4.6 4.6 - 5.1 mg/dL LAB HEMATOLOGY METHOD 03/17/2025 5:39 AM EDT [facility] Blood Venous blood specimen / Unknown Venipuncture / Unknown 03/17/2025 5:29 AM EDT 03/17/2025 5:37 AM EDT Delta Wilhelm MD LAB BLOOD ORDERABLES Final Result [facility] [address] [place] [address] * (ABNORMAL) Basic metabolic panel (03/17/2025 5:29 AM EDT) Only the most recent of4 resultswithin the time period is included. Glucose, Plasma 90 74 - 99 mg/dL 03/17/2025 6:12 AM EDT [facility] BUN, Plasma 17 8 - 23 mg/dL 03/17/2025 6:12 AM EDT [facility] Creatinine, Plasma 1.31(H) 0.70 - 1.20 mg/dL 03/17/2025 6:12 AM EDT [facility] BUN/Creatinine Ratio 13 03/17/2025 6:12 AM EDT [facility] Sodium, Plasma 139 136 - 145 mmol/L 03/17/2025 6:12 AM EDT [facility] Potassium, Plasma 4.8 3.6 - 4.9 mmol/L 03/17/2025 6:12 AM EDT [facility] Comment:Hemolyzed, result ma y be falsely increased. Chloride, Plasma 102 97 - 107 mmol/L 03/17/2025 6:12 AM EDT [facility] CO2, Plasma 28 22 - 29 mmol/L 03/17/2025 6:12 AM EDT [facility] Anion Gap 9 6 - 16 mmol/L 03/17/2025 6:12 AM EDT [facility] Total Calcium, Plasma 8.7(L) 8.9 - 10.2 mg/dL 03/17/2025 6:12 AM EDT [facility] eGFRcr 57.8 mL/min/1.7 3m*2 03/17/2025 6:12 AM EDT [facility] Comment:Reported eGFRcr in m L/min/1.73m2 is based the CKD-EPI 2020 equation that does not use a race coefficient. Blood Venous blood specimen / Unknown Venipuncture / Unknown 03/17/2025 5:29 AM EDT 03/17/2025 5:40 AM EDT us Gt De La Paz MD LAB BLOOD ORDERABLES Final Res ult [facility] [address] [place] [address] * EEG (03/14/2025 1:31 PM EDT) Anatomical Region Laterality Modality EEG Narrative 03/14/2025 2:33 PM EDT Table formatting from the original result was not included. Electroencephalogram Report Patient: Last Hitchcock : 1950 SEX: male Referring Provider: Delta Wilhelm MD EEG Reading Physician: Brian Valle Study [...] mg 650 mg Nasogastric q4h PRN Lay Clark, amitriptyline (Elavil) tablet 25 mg 25 mg [...] capsule 300 mg 300 mg Nasogastric BID tG De La Paz MD 300 mg at 03/14/25 0812 heparin (porcine) injection 5,000 Units 5,000 Units Subcutaneous q8h [facility] Liz Echevarria MD 5,000 Units at 03/14/25 0621 insulin regular (HumuLIN R,NovoLIN R) 100 units/mL injection - Correction - Standard Dose 0-5 Units Subcutaneous q6h [facility] Lay Clark DO ipratropium-albuterol (Duo-Neb) 0.5-2.5 mg/3 [...] Clark DO 17 g at 03/14/25 0812 Delta Wilhelm MD NEUROLOGY ORDERABLES Final Result * [place] [facility], E/M 30-74 MINUTES (03/14/2025 7:18 [...] IN CLINIC/BEDSIDE ORDERABLES Fin al Result * MR Head wo IV Contrast (03/14/2025 [...] Martín Ocasio MD on 03/14/2025 2:34 AM Delta Wilhelm MD IMG MRI PROCEDURES Final R esult * Triglycerides (03/14/2025 12:34 AM EDT) Triglycerides, Plasma 114 <150 mg/dL 03/14/2025 1:11 AM EDT [facility] Comment: Triglyceride Reference Range (age >17 years): Desirable: <150 mg/dL Borderline high: 150 to 199 mg/dL High: 200 to 499 mg/dL Very high: >499 mg/dL Increased risk of pancreatitis: >1000 mg/dL Fasting greater than or equal to 12 hours? Yes 03/14/2025 1:11 AM EDT [facility] Blood Venous blood specimen / Unknown Venipuncture / Unknown 03/14/2025 12:34 AM EDT 03/14/2025 12:44 AM EDT us Staci Castro LAB BLOOD ORDERABLES Final Resul t [facility] [address] [place] [address] * Bronchoalveolar Lavage Cell Count W/ Diff (03/13/2025 11:34 AM EDT) Neutrophils %, BAL 10 % LAB HEMATOLOGY METHOD 03/13/2025 5:20 PM EDT [facility] Lymphocytes %, BAL 0 % LAB HEMATOLOGY METHOD 03/13/2025 5:20 PM EDT [facility] Monocytes/Macrop hages %, BAL 84 % LAB HEMATOLOGY METHOD 03/13/2025 5:20 PM EDT [facility] Eosinophils %, BAL 0 % LAB HEMATOLOGY METHOD 03/13/2025 5:20 PM EDT [facility] Basophils %, BAL 0 % LAB HEMATOLOGY METHOD 03/13/2025 5:20 PM EDT [facility] Squamous Cells %, BAL 0 % LAB HEMATOLOGY METHOD 03/13/2025 5:20 PM EDT [facility] Bronchial Cells %, BAL 6 % LAB HEMATOLOGY METHOD 03/13/2025 5:20 PM EDT [facility] Other Cells %, BAL 0 % LAB HEMATOLOGY METHOD 03/13/2025 5:20 PM EDT [facility] Comment, BAL None LAB HEMATOLOGY METHOD 03/13/2025 5:20 PM EDT [facility] Comment:This is an appended report. These results have been appended to a previously preliminary verified report. Total Nucleated Cell Count, BAL 272 uL LAB HEMATOLOGY METHOD 03/13/2025 5:20 PM EDT [facility] Comment:Clot present, may af fect results. Test performed by manual method. Bronchoalveolar Lavage Structure of middle lobe of right lung / Unknown 03/13/2025 11:34 AM EDT 03/13/2025 11:46 AM EDT us Gt De La Paz MD LAB BODY FLUIDS AND STOOLS ORD ERABLES Final Result [facility] [address] [place] [address] * BAL Comprehensive Respiratory Panel by PCR (03/13/2025 11:34 AM EDT) BAL Comprehensive PCR Result Not Detected for all analytes Not Detected for all analytes 03/13/2025 1:44 PM EDT [facility] Bronchoalveolar Lavage Bronchoalveolar lavage fluid specimen / Unknown 03/13/2025 11:34 AM EDT 03/13/2025 1:08 PM EDT Narrative [facility] - 03/13/2025 1:44 PM EDT [...] developed and its performance characteristics determined by [facility] as appropriate for clinical purposes. This assay has not been cleared or approved by the FDA, but is performed in a CLIA regulated laboratory that is performed in a CLIA regulated laboratory that is qualified to perform high-complexity testing. The [facility] is certified under the Clinical Laboratory Improvement Amendments of 1988 (CLIA-88) as qualified to perform high complexity clinical laboratory testing. Gt De La Paz MD LAB MICROBIOLOGY - GENERAL ORD ERABLES Final Result [facility] [address] [place] [address] * Pneumocystis Jirovecii by PCR (03/13/2025 11:34 AM EDT) P. Jirovecii by PCR Not Detected 03/17/2025 12:16 AM EDT [facility] ([employer]) P. Jirovecii Source BAL 03/17/2025 12:16 AM EDT [facility] ([employer]) Bronchoalveolar Lavage Bronchoalveolar lavage fluid specimen / Unknown 03/13/2025 11:34 AM EDT 03/13/2025 11:46 AM EDT Narrative [facility] ([employer]) - 03/17/2025 12:16 AM EDT NOT DETECTED - A negative result does not rule out the presence of PCR inhibitors in the patient specimen or assay specific nucleic acid in concentrations below the level of detection by the assay. This test was developed and its performance characteristics determined by [email or web address]. It has not been cleared or approved by the [place] Food and Drug Administration. This test was performed in a CLIA certified laboratory and is intended for clinical purposes. Performed By: [email or web address] [address] [place] [id number] Major Assembly Lineman: Filippo Cortes MD, PhD CLIA Number: [id number] Gt De La Paz MD LAB REF LAB BLOOD AND FLUID OR D Final Result Performing Organization Address City/[facility] [address]/ZIP Co de Phone Number [employer], LABORATORY ([employer]) [address] [place] [address] * Body fluid, cytospin, pathologist interpretation (03/13/2025 11:34 AM EDT) Specimen Type Bronchoalveolar Lavage LAB HEMATOLOGY METHOD 03/14/2025 3:40 PM EDT [facility] Specimen Source, Body Fluid Lung, Right Middle Lobe LAB HEMATOLOGY METHOD 03/14/2025 3:40 PM EDT [facility] Clinical Diagnosis, Body Fluid Concern for R sided post-obstructive pneumonia in setting of pulmonary mass LAB HEMATOLOGY METHOD 03/14/2025 3:40 PM EDT [facility] Interpretation , Body Fluid No evidence of malignancy Predominantly alveolar macrophages Mild acute inflammatory cells A resident was involved in the service. I attest I examined the relevant preparations for the specimens and confirmed the diagnosis or interpretation. 03/14/2025 3:40 PM EDT [facility] Pathologist Signature, Body Fluid 03/14/2025 3:40 PM EDT [facility] Comment:Reviewed by: Mónica colin MD LAB CP ASR DISCLAIMER Yes 03/14/2025 3:40 PM EDT [facility] Bronchoalveolar Lavage Structure of middle lobe of right lung / Unknown 03/13/2025 11:34 AM EDT 03/13/2025 11:46 AM EDT us Gt De La Paz MD LAB BODY FLUIDS AND STOOLS ORD ERABLES Final Result [facility] [address] [place] [address] * Aspergillus galactomannan antigen (03/13/2025 11:34 AM EDT) Aspergillus galactomannan EIA (BAL) 0.051 <0.500 03/15/2025 6:38 PM EDT [facility] ([facility]) Comment: Interpretation: Patients with an index value [...] Aspergillus Galactomannan EIA is a product of [employer] and is FDA approved for in vitro diagnostic use. Testing Performed at: [facility] [address] [place] [address], [address] [place] [address] [employer]b Net Programmer: Dominick Gonsalez, PhD [facility]CL[facility] ([facility]) CLIA # [id number] FLAG Interpretation: A = Abnormal, H = High, L = Low Bronchoalveolar Lavage Bronchoalveolar lavage fluid specimen / Unknown 03/13/2025 11:34 AM EDT 03/13/2025 11:46 AM EDT Narrative [facility] ([employer]) - 03/15/2025 6:38 PM EDT Release to patient in [facility]->Immediate us Gt De La Paz MD LAB BODY FLUIDS AND STOOLS ORD ERABLES Final Result [facility] ([employer]) * Quantitative BAL/PAL/Bronch Wash Culture and Gram StainBronchoalveolar Lavage, Right Middle Lobe (03/13/2025 11:34 AM EDT) Culture No growth at day 2 2024 8:18 AM EDT [facility] Gram Stain Result No polymorphonuclear leukocytes seen 03/15/2025 8:18 AM EDT [facility] Gram Stain Result No organisms seen 03/15/2025 8:18 AM EDT [facility] Bronchoalveolar Lavage Bronchoalveolar lavage fluid specimen / Unknown 03/13/2025 11:34 AM EDT 03/13/2025 1:08 PM EDT us Gt De La Paz MD LAB MICROBIOLOGY - GENERAL ORD ERABLES Final Result [facility] [address] [place] [address] * Non-Gynecologic Cytology, Fluid (03/13/2025 11:34 AM EDT) Case Report Cytology Case: [id number] Authorizing Provider: Gt De La Paz MD Collected: 03/13/2025 1134 Ordering Location: [facility] Inpatient Received: 03/14/2025 0828 Pathologist: Kai Gilbert MD Specimen: Bronchial Washing, Right Middle Lobe, BRONCHIAL WASHING, RIGHT MIDDLE LOBE 03/14/2025 5:45 PM EDT [facility] Final Diagnosis A. BRONCHIAL WASHING, RIGHT MIDDLE LOBE - NO EVIDENCE OF MALIGNANCY. NO VIRAL CHANGES IDENTIFIED, PREDOMINANTLY MACROPHAGES, GMS STAIN IS NEGATIVE FOR ORGANISMS. 03/14/2025 5:45 PM EDT [facility] at 1745 EDT Clinical History possible malignancy 03/14/2025 5:45 PM EDT [facility] Previous Cancer No 5:45 PM EDT [facility] Gross Description A. BRONCHIAL WASHING, RIGHT MIDDLE LOBE 20 ml's hazy fluid processed as thin prep and GMS 03/14/2025 5:45 PM EDT [facility] Non-Gynecologica l (Select Specimen Source) Specimen from lung obtained by bronchial washing procedure / Unknown 03/13/2025 11:34 AM EDT 03/14/2025 8:28 AM EDT us Gt De La Paz MD LAB CYTOLOGY ORDERABLES Final Result Performing Organization Address City/State/[facility] Co de Phone Number [facility] [address] [place] [address] * BEDSIDE BRONCHOSCOPY (03/13/2025 10:30 AM EDT) Narrative Gt De La Paz MD - 03/13/2025 10:30 AM EDT Gt De La Paz MD 03/14/2025 9:30 AM Bronchoscopy Performed by: Gt De La Paz MD Authorized by: Gt De La Paz MD us Gt De La Paz MD IN CLINIC/BEDSIDE ORDERABLES E dited Result - Final * [place] [facility], E/M 30-74 MINUTES (03/13/2025 7:06 [...] IN CLINIC/BEDSIDE ORDERABLES F inal Result * LACTIC ACID, VENOUS (03/13/2025 12:57 AM EDT) Lactate, Venous, Whole Blood 1.6 0.5 - 2.2 mmol/L LAB HEMATOLOGY METHOD 03/13/2025 1:12 AM EDT [facility] Blood Venous blood specimen / Unknown Venipuncture / Unknown 03/13/2025 12:57 AM EDT 03/13/2025 1:09 AM EDT Delta Wilhelm MD LAB BLOOD ORDERABLES Final Result Performing Organization Address City/[facility] [address] [facility]/ZIP Co de Phone Number [facility] [address] [place] [address] * Ionized calcium, serum (03/13/2025 12:57 AM EDT) Ionized Calcium, Serum 4.9 4.6 - 5.3 mg/dL LAB HEMATOLOGY METHOD 03/13/2025 1:45 AM EDT [facility] Blood Venous blood specimen / Unknown Venipuncture / Unknown 03/13/2025 12:57 AM EDT 03/13/2025 1:12 AM EDT Delta Wilhelm MD LAB BLOOD ORDERABLES Final Result [facility] [address] [place] [address] * Phosphorus, Plasma (03/13/2025 12:57 AM EDT) Phosphorus, Plasma 2.8 2.5 - 4.5 mg/dL 03/13/2025 1:41 AM EDT [facility] Blood Venous blood specimen / Unknown Venipuncture / Unknown 03/13/2025 12:57 AM EDT 03/13/2025 1:12 AM EDT Delta Wilhelm MD LAB BLOOD ORDERABLES Final Result Performing Organization Address [facility] Co de Phone Number [facility] [address] [place] [address] * (ABNORMAL) Magnesium, Plasma (03/13/2025 12:57 AM EDT) Only the most recent of2 resultswithin the time period is included. Magnesium, Plasma 1.7(L) 1.9 - 2.4 mg/dL 03/13/2025 1:41 AM EDT [facility] Blood Venous blood specimen / Unknown Venipuncture / Unknown 03/13/2025 12:57 AM EDT 03/13/2025 1:12 AM EDT Delta Wilhelm MD LAB BLOOD ORDERABLES Final Result Performing Organization Address [facility]/ZIP Co de Phone Number [facility] [address] [place] [address] * (ABNORMAL) Comprehensive metabolic panel (03/13/2025 12:57 AM EDT) Only the most recent of2 resultswithin the time period is included. Glucose, Plasma 148(H) 74 - 99 mg/dL 03/13/2025 1:41 AM EDT [facility] BUN, Plasma 31(H) 8 - 23 mg/dL 03/13/2025 1:41 AM EDT [facility] Creatinine, Plasma 2.10(H) 0.70 - 1.20 mg/dL 03/13/2025 1:41 AM EDT [facility] BUN/Creatinine Ratio 15 03/13/2025 1:41 AM EDT [facility] Sodium, Plasma 136 136 - 145 mmol/L 03/13/2025 1:41 AM EDT [facility] Potassium, Plasma 4.5 3.6 - 4.9 mmol/L 03/13/2025 1:41 AM EDT [facility] Chloride, Plasma 99 97 - 107 mmol/L 03/13/2025 1:41 AM EDT [facility] CO2, Plasma 25 22 - 29 mmol/L 03/13/2025 1:41 AM EDT [facility] Anion Gap 12 6 - 16 mmol/L 03/13/2025 1:41 AM EDT [facility] Total Calcium, Plasma 9.2 8.9 - 10.2 mg/dL 03/13/2025 1:41 AM EDT [facility] Total Protein 6.5 6.3 - 7.9 g/dL 03/13/2025 1:41 AM EDT [facility] Albumin, Plasma 3.9 3.5 - 5.2 g/dL 03/13/2025 1:41 AM EDT [facility] AST, Plasma 16 10 - 50 U/L 03/13/2025 1:41 AM EDT [facility] ALT, Plasma 10 10 - 50 U/L 03/13/2025 1:41 AM EDT [facility] Alkaline Phosphatase, Plasma 77 40 - 115 U/L 03/13/2025 1:41 AM EDT [facility] Total Bilirubin, Plasma 0.3 0.2 - 1.1 mg/dL 03/13/2025 1:41 AM EDT [facility] eGFRcr 32.8 mL/min/1.7 3m*2 03/13/2025 1:41 AM EDT [facility] Comment:Reported eGFRcr in m L/min/1.73m2 is based the CKD-EPI 2020 equation that does not use a race coefficient. Blood Venous blood specimen / Unknown Venipuncture / Unknown 03/13/2025 12:57 AM EDT 03/13/2025 1:12 AM EDT Delta Wilhelm MD LAB BLOOD ORDERABLES Final Result [facility] [address] [place] [address] * Urinalysis Microscopic Examination (03/12/2025 11:05 PM EDT) Urine Urine specimen obtained by clean catch procedure / Unknown Non-blood Collection / Unknown 03/12/2025 11:05 PM EDT 03/12/2025 11:11 PM EDT Delta Wilhelm MD LAB URINE ORDERABLES Final Result [facility] [address] [place] [address] * (ABNORMAL) Opiates Confirm Urine (03/12/2025 11:05 PM EDT) Codeine <50 <50 ng/mL 03/15/2025 5:06 PM EDT [facility] Codeine Glucuronide <50 <50 ng/mL 03/15/2025 5:06 PM EDT [facility] Desmethyl Tramadol <50 <50 ng/mL 03/15/2025 5:06 PM EDT [facility] EDDP - Methadone Metabolite <50 <50 ng/mL 03/15/2025 5:06 PM EDT [facility] Hydrocodone 460(H) <50 ng/mL 03/15/2025 5:06 PM EDT [facility] Hydromorphone 177(H) <50 ng/mL 03/15/2025 5:06 PM EDT [facility] Hydromorphone Glucuronide >1,000(H) <50 ng/mL 03/15/2025 5:06 PM EDT [facility] Comment:Metabolite of Hydrom orphone Meperidine <50 <50 ng/mL 03/15/2025 5:06 PM EDT [facility] Methadone <50 <50 ng/mL 03/15/2025 5:06 PM EDT [facility] 6 Monoacetyl morphine <10 <10 ng/mL 03/15/2025 5:06 PM EDT [facility] Morphine <50 <50 ng/mL 03/15/2025 5:06 PM EDT [facility] Morphine Glucuronide <50 <50 ng/mL 03/15/2025 5:06 PM EDT [facility] Comment:Metabolite of Morphi ne Naloxone <50 <50 ng/mL 03/15/2025 5:06 PM EDT [facility] Naloxone Glucuronide <50 <50 ng/mL 03/15/2025 5:06 PM EDT [facility] Comment:Metabolite of Naloxo ne Normeperidine <50 <50 ng/mL 03/15/2025 5:06 PM EDT [facility] Tramadol <50 <50 ng/mL 03/15/2025 5:06 PM EDT [facility] Urine Urine specimen obtained by clean catch procedure / Unknown Non-blood Collection / Unknown 03/12/2025 11:05 PM EDT 03/12/2025 11:11 PM EDT Narrative [facility] - 03/15/2025 5:06 PM EDT Drug analysis is confirmed by LC-MS/MS (LC Tandem Mass Spectrometry) on Urine specimens. This test was developed and its performance characteristics determined by [facility]. It has not been cleared or approved by the FDA. The laboratory is regulated under CLIA as qualified to perform high-complexity testing. This test is used for clinical purposes. Testing is performed at the [facility], [facility]. Delta iWlhelm MD LAB URINE ORDERABLES Final Result [facility] [address] [place] [address] * Drug Abuse Screen Urine (03/12/2025 11:05 PM EDT) Amphetamine Screen Urine Negative Cutoff: 500 ng/mL 03/12/2025 11:44 PM EDT [facility] Benzodiazepines Screen Urine Negative Cutoff: 200 ng/mL 03/12/2025 11:44 PM EDT [facility] Cannabinoid Screen Urine Negative Cutoff: 50 ng/mL 03/12/2025 11:44 PM EDT [facility] Cocaine Screen Urine Negative Cutoff: 300 ng/mL 03/12/2025 11:44 PM EDT [facility] Barbiturate Screen Urine Negative Cutoff: 200 ng/mL 03/12/2025 11:44 PM EDT [facility] Opiate Screen Urine Presumptive positive. Confirmation by LC-MS/MS to follow. Cutoff: 300 ng/mL 03/12/2025 11:44 PM EDT [facility] Methadone Screen Urine Negative Cutoff: 300 ng/mL 03/12/2025 11:44 PM EDT [facility] Buprenorphine Screen Urine Negative Cutoff: 10 ng/mL 03/12/2025 11:44 PM EDT [facility] Fentanyl Screen Urine Presumptive positive. Confirmation by LC-MS/MS to follow. Cutoff: 1 ng/mL 03/12/2025 11:44 PM EDT [facility] Oxycodone Screen Urine Negative Cutoff: 100 ng/mL 03/12/2025 11:44 PM EDT [facility] Urine Urine specimen obtained by clean catch procedure / Unknown Non-blood Collection / Unknown 03/12/2025 11:05 PM EDT 03/12/2025 11:11 PM EDT Delta Wilhelm MD LAB URINE ORDERABLES Final Result [facility] [address] [place] [address] * (ABNORMAL) Fentanyl Urine Confirm (03/12/2025 11:05 PM EDT) Fentanyl 3(H) <1 ng/mL 03/15/2025 5:06 PM EDT [facility] Norfentanyl 5(H) <2 ng/mL 03/15/2025 5:06 PM EDT [facility] Urine Urine specimen obtained by clean catch procedure / Unknown Non-blood Collection / Unknown 03/12/2025 11:05 PM EDT 03/12/2025 11:11 PM EDT Narrative [facility] - 03/15/2025 5:06 PM EDT Drug analysis is confirmed by LC-MS/MS (LC Tandem Mass Spectrometry) on Urine specimens. This test was developed and its performance characteristics determined by [facility]. It has not been cleared or approved by the FDA. The laboratory is regulated under CLIA as qualified to perform high-complexity testing. This test is used for clinical purposes. Testing is performed at the [facility], [facility]. Delta Wilhelm MD LAB URINE ORDERABLES Final Result [facility] [address] [place] [address] * (ABNORMAL) Urinalysis with reflex microscopic (Culture NOT Included) (03/12/2025 11:05 PM EDT) Color, Urine Yellow LAB URINALYSIS - AUTOMATED METHOD 03/13/2025 12:17 AM EDT [facility] Clarity, Urine Clear LAB URINALYSIS - AUTOMATED METHOD 03/13/2025 12:17 AM EDT [facility] Spec [place], Urine >1.030(H) 1.005 - 1.030 LAB URINALYSIS - AUTOMATED METHOD 03/13/2025 12:17 AM EDT [facility] pH, Urine 7.0 5.0 - 8.0 LAB URINALYSIS - AUTOMATED METHOD 03/13/2025 12:17 AM EDT [facility] Protein, Urine 30(A) Negative mg/dL LAB URINALYSIS - AUTOMATED METHOD 03/13/2025 12:17 AM EDT [facility] Glucose, Urine 100(A) Negative mg/dL LAB URINALYSIS - AUTOMATED METHOD 03/13/2025 12:17 AM EDT [facility] Ketones, Urine Negative Negative mg/dL LAB URINALYSIS - AUTOMATED METHOD 03/13/2025 12:17 AM EDT [facility] Blood, Urine Large(A) Negative LAB URINALYSIS - AUTOMATED METHOD 03/13/2025 12:17 AM EDT [facility] Bilirubin, Urine Negative Negative LAB URINALYSIS - AUTOMATED METHOD 03/13/2025 12:17 AM EDT [facility] Urobilinogen, Urine 0.2 0.2 to 1.0 mg/dL LAB URINALYSIS - AUTOMATED METHOD 03/13/2025 12:17 AM EDT [facility] Leukocytes, Urine Moderate(A) Negative LAB URINALYSIS - AUTOMATED METHOD 03/13/2025 12:17 AM EDT [facility] Nitrite, Urine Negative Negative LAB URINALYSIS - AUTOMATED METHOD 03/13/2025 12:17 AM EDT [facility] RBC, Urine >50(A) 0 to 3 /HPF LAB URINALYSIS - AUTOMATED METHOD 03/13/2025 12:17 AM EDT [facility] WBC, Urine >50(A) 0 to 5 /HPF LAB URINALYSIS - AUTOMATED METHOD 03/13/2025 12:17 AM EDT [facility] Squamous Epithelial Cells 0 - 2 0 to 5 /HPF LAB URINALYSIS - AUTOMATED METHOD 03/13/2025 12:17 AM EDT [facility] Hyaline Casts 0 - 2 0 to 5 /LPF LAB URINALYSIS - AUTOMATED METHOD 03/13/2025 12:17 AM EDT [facility] Bacteria, Urine Negative Negative LAB URINALYSIS - AUTOMATED METHOD 03/13/2025 12:17 AM EDT [facility] Urine Urine specimen obtained by clean catch procedure / Unknown Non-blood Collection / Unknown 03/12/2025 11:05 PM EDT 03/12/2025 11:11 PM EDT Delta Wilhelm MD LAB URINE ORDERABLES Final Result [facility] [address] [place] [address] * Shona auris Surveillance by PCR (03/12/2025 10:18 PM EDT) Shona auris PCR Result Not Detected Not Detected 03/14/2025 6:39 AM EDT [facility] Swab (Axilla and Groin) Non-blood Collection / Unknown 03/12/2025 10:18 PM EDT 03/12/2025 10:22 PM EDT Narrative [facility] - 03/14/2025 6:39 AM EDT This PCR assay was developed and its performance characteristics determined by [facility] as appropriate for clinical purposes. This assay has not been cleared or approved by the FDA, but is performed in a CLIA regulated laboratory that is qualified to perform high-complexity testing. Delta Wilhelm MD LAB MICROBIOLOGY - GENERAL ORDERABLES Final Result Performing Organization Address [facility] Co de Phone Number [facility] [address] [place] [address] * Multi Drug Resistance Test (03/12/2025 10:18 PM EDT) Culture No growth at day 1 03/14/2025 8:08 AM EDT [facility] Swab (Nares and Jazmyn Rectal) Non-blood Collection / Unknown 03/12/2025 10:18 PM EDT 03/12/2025 10:22 PM EDT Narrative [facility] - 03/14/2025 8:08 AM EDT This test was developed and its performance characteristics determined by the [facility]. Although the media is FDA-approved, it is not FDA-approved for all specimen types submitted. The FDA has determined that such clearance or approval is not necessary. This test is used for surveillance purposes. It should not be regarded as investigational or for research. The [facility] is certified under the Clinical Laboratory Improvement Amendments of 1988 (CLIA-88) as qualified to perform high complexity clinical laboratory testing. Delta Wilhelm MD LAB MICROBIOLOGY - GENERAL ORDERABLES Final Result Performing Organization Address [facility] Co de Phone Number [facility] [address] [place] [address] * (ABNORMAL) Troponin T, High Sensitivity, 2 Hour, Plasma (03/12/2025 10:17 PM EDT) Troponin T, High Sensitivity, 2 Hour 28(H) <19 ng/L 03/12/2025 10:50 PM EDT [facility] Troponin Delta Interpretation Not Calculated 03/12/2025 10:50 PM EDT [facility] Comment:Specimen not collect ed within acceptable timeframe. Delta will not be calculated. Blood Venous blood specimen / Unknown Venipuncture / Unknown 03/12/2025 10:17 PM EDT 03/12/2025 10:22 PM EDT us Staci Castro LAB BLOOD ORDERABLES Final Resul t Performing Organization Address City/[facility]/ZIP Co de Phone Number [facility] [address] [place] [address] * (ABNORMAL) Potassium (03/12/2025 10:17 PM EDT) Potassium, Plasma 6.3(H) 3.6 - 4.9 mmol/L 03/12/2025 10:44 PM EDT [facility] Blood Venous blood specimen / Unknown Venipuncture / Unknown 03/12/2025 10:17 PM EDT 03/12/2025 10:22 PM EDT us Delta Wilhelm MD LAB BLOOD ORDERABLES Final Result Performing Organization Address [facility] Co de Phone Number [facility] [address] [place] [address] * XR Chest 1 View (03/12/2025 9:21 [...] IMG XR PROCEDURES Final Result * XR Abdomen 1 View (03/12/2025 9:21 [...] of the abdomen. COMPARISON: None. FINDINGS: Limited [id number] abdominal radiograph for the purpose of locating tube position. The tip of the nasogastric tube is within the proximal stomach. Procedure Note Libra Balbuena MD - 03/12/2025 CLINICAL INDICATION: Orogastric tube TECHNIQUE: Supine radiograph of the abdomen. COMPARISON: None. FINDINGS: Limited [id number] abdominal radiograph for the purpose of locatingtube [...] Culture (Aerobic/Anaerobet Set) (03/12/2025 9:12 PM EDT) Only the most recent of2 resultswithin the time period is included. Culture No growth at day 5 03/17/2025 10:01 PM EDT [facility] Blood Structure of left forearm / Unknown Venipuncture / Unknown 03/12/2025 9:12 PM EDT 03/12/2025 9:55 PM EDT Narrative [facility] - 03/17/2025 10:01 PM EDT Low blood volume submitted, results may be compromised Result Colton Castro LAB MICROBIOLOGY - GENERAL ORDER ALLEN Final Result Performing Organization Address [facility]/ZIP Co de Phone Number [facility] [address] [place] [address] * Methemoglobin (03/12/2025 9:07 PM EDT) Pathologist [facility] Methemoglobin 0.6 0.0 - 1.5 % LAB HEMATOLOGY METHOD 03/12/2025 9:18 PM EDT [facility] Blood Venous blood specimen / Unknown Venipuncture / Unknown 03/12/2025 9:07 PM EDT 03/12/2025 9:17 PM EDT Result Colton Castro LAB BLOOD ORDERABLES Final Resul t Performing Organization Address City/[facility] [address]/ZIP Co de Phone Number [facility] [address] [place] [address] * Streptococcus pneumoniae and Legionella Urinary Antigen (03/12/2025 9:00 PM EDT) Legionella pneumophila serogroup 1 Antigen Result (Urine) Negative Negative 03/12/2025 9:44 PM EDT [facility] Streptococcus pneumoniae Antigen Result (Urine) Negative Negative 03/12/2025 9:44 PM EDT [facility] Urine Urine specimen obtained by clean catch procedure / Unknown Non-blood Collection / Unknown 03/12/2025 9:00 PM EDT 03/12/2025 9:19 PM EDT us Staci Castro LAB MICROBIOLOGY - GENERAL ORDER ALLEN Final Result [facility] [address] [place] [address] * (ABNORMAL) POCT arterial blood gas gem (03/12/2025 8:57 PM EDT) pH, Arterial 7.34 7.31 - 7.42 03/12/2025 8:59 PM EDT [facility] pCO2, Arterial 53(H) 32 - 45 mm Hg 03/12/2025 8:59 PM EDT [facility] pO2, Arterial 75 >70 mm Hg 03/12/2025 8:59 PM EDT [facility] SO2, Arterial 98 94 - 98 % 03/12/2025 8:59 PM EDT [facility] FIO2 100.0 % 03/12/2025 8:59 PM EDT [facility] Base Excess, Arterial 1.9 -2 - 3 mmol/L 03/12/2025 8:59 PM EDT [facility] HCO3, Arterial 28.6(H) 22 - 26 mmol/L 03/12/2025 8:59 PM EDT [facility] Total Hemoglobin, Arterial, Whole Blood 11.8(L) 13.7 - 17.5 g/dL 03/12/2025 8:59 PM EDT [facility] Hematocrit, Arterial 35.0(L) 40 - 51.0 % 03/12/2025 8:59 PM EDT [facility] Sodium, Arterial 132(L) 136 - 145 mmol/L 03/12/2025 8:59 PM EDT [facility] Potassium, Arterial 6.2(H) 3.6 - 4.9 mmol/L 03/12/2025 8:59 PM EDT [facility] Comment:Hemolyzed, result ma y be falsely increased. Chloride, Whole Blood 101 97 - 107 mmol/L 03/12/2025 8:59 PM EDT [facility] Glucose, Arterial 121(H) 74 - 99 mg/dL 03/12/2025 8:59 PM EDT [facility] Ionized Calcium, Arterial 4.6 4.6 - 5.1 mg/dL 03/12/2025 8:59 PM EDT [facility] Lactate, Arterial 0.7 0.5 - 1.6 mmol/L 03/12/2025 8:59 PM EDT [facility] Body Temperature 37.2 Celsius 03/12/2025 8:59 PM EDT [facility] pH, Temp Corrected, Arterial 7.34 7.31 - 7.42 03/12/2025 8:59 PM EDT [facility] pCO2, Temp Corrected, Arterial 53(H) 32 - 45 mm Hg 03/12/2025 8:59 PM EDT [facility] pO2, Temp Corrected, Arterial 76 >70 mm Hg 03/12/2025 8:59 PM EDT [facility] Metal Filer ID Dwayne Bose 03/12/2025 8:59 PM EDT [facility] Blood, Arterial Whole blood specimen / Unknown 03/12/2025 8:57 PM EDT 03/12/2025 8:59 PM EDT Staci Castro LAB POINT OF CARE TE ST DOCKED DEVICE UNSOLICITED RESULTS Final Result [facility] [address] [place] [id number] * SARS CoV-2/COVID-19 by PCR - Rapid (03/12/2025 8:53 PM EDT) Pathologist [facility] SARS CoV-2/COVID-1 9 RNA PCR Result Not Detected Not Detected 03/12/2025 10:09 PM EDT [facility] Swab Nasopharyngeal structure / Unknown Non-blood Collection / Unknown 03/12/2025 8:53 PM EDT 03/12/2025 9:20 PM EDT Narrative [facility] - 03/12/2025 10:09 PM EDT [...] ORDER ALLEN Final Result Performing Organization Address City/[facility]/ZIP Co de Phone Number [facility] [address] [place] [address] * Nasopharyngeal Respiratory Panel (03/12/2025 8:53 PM EDT) Nasopharyngeal Respiratory PCR Interpretation Not Detected for all analytes Not Detected for all analytes 03/13/2025 1:10 AM EDT [facility] Swab Nasopharyngeal structure / Unknown Non-blood Collection / Unknown 03/12/2025 8:53 PM EDT 03/12/2025 9:20 PM EDT Narrative [facility] - 03/13/2025 1:10 AM EDT [...] Respiratory PCR Panel is performed using the [employer] instrument. This test is FDA approved for use with Nasopharyngeal swabs only. This test is used for clinical purposes. It should not be regarded as investigational or for research. The [facility] Clinical Microbiology Laboratory is certified under the Clinical Laboratory Improvement Amendments of 1988 (CLIA-88) as qualified to perform high complexity clinical laboratory testing. us Staci Castro LAB MICROBIOLOGY - GENERAL ORDER ALLEN Final Result Performing Organization Address City/[facility] [address]/ZIP Co de Phone Number [facility] [address] [place] [address] * Methicillin Resistant Staphylococcus aureus (MRSA) by PCR (03/12/2025 8:53 PM EDT) Methicillin Resistant Staphylococcus aureus (MRSA) by PCR Not Detected Not Detected 03/12/2025 10:41 PM EDT [facility] Swab Both anterior nares / Unknown Non-blood Collection / Unknown 03/12/2025 8:53 PM EDT 03/12/2025 9:20 PM EDT Narrative [facility] - 03/12/2025 10:41 PM EDT [...] MICROBIOLOGY - GENERAL ORDER ALLEN Final Result [facility] [address] [place] [address] * EKG now - STAT (adult) (03/12/2025 8:49 PM EDT) EKG DIAGNOSIS CLASS Abnormal MUSE ECG Ventricular Rate 62 BPM MUSE ECG Atrial Rate 62 BPM MUSE ECG [place] Interval 168 ms MUSE ECG QRSD Interval 128 ms MUSE ECG QT Interval 416 ms MUSE ECG QTC Interval 422 ms MUSE ECG P Pal[place] 64 degrees MUSE ECG R [place] 81 degrees MUSE ECG T Wave Pal[place]to 81 degrees MUSE ECG Diagnosis Normal sinus rhythm MUSE ECG Diagnosis Right bundle branch block MUSE ECG Diagnosis Abnormal ECG MUSE ECG Diagnosis MUSE ECG Diagnosis Confirmed by Chino Witt ([id number]) on 03/13/2025 8:51:16 PM MUSE ECG 03/12/2025 8:49 PM EDT 03/13/2025 8:51 PM EDT us Staci Castro ECG ORDERABLES Final Result MUSE ECG * ED HIV 1/2 Antibody/Antigen Screen w/Reflex to HIV 1/2 Differentiation (03/12/2025 8:48 PM EDT) HIV 1 & 2 Antibody/Antigen Screen Non Reactive Non Reactive 03/12/2025 9:37 PM EDT [facility] Comment:Screening for HIV 1 & 2 antibodies, and P24 antigen is NONREACTIVE. No confirmatory testing is required. Blood Venous blood specimen / Unknown Venipuncture / Unknown 03/12/2025 8:48 PM EDT 03/12/2025 9:00 PM EDT us Staci Castro LAB BLOOD ORDERABLES Final Resul t Performing Organization Address City/[facility] [address]/[place] [address] * TSH Reflex FT4 (03/12/2025 8:48 PM EDT) Pathologist [facility] Thyroid Stimulating Hormone, Plasma 2.54 0.40 - 4.20 uIU/mL 03/12/2025 10:27 PM EDT [facility] Blood Venous blood specimen / Unknown Venipuncture / Unknown 03/12/2025 8:48 PM EDT 03/12/2025 8:59 PM EDT us Delta Wilhelm MD LAB BLOOD ORDERABLES Final Result Performing Organization Address City/[facility] [address]/[place] [address] * (ABNORMAL) Troponin now and 120 min (03/12/2025 8:48 PM EDT) Pathologist [facility] Troponin T, High Sensitivity, 0 Hour 32(H) <19 ng/L 03/12/2025 9:37 PM EDT [facility] Blood Venous blood specimen / Unknown Venipuncture / Unknown 03/12/2025 8:48 PM EDT 03/12/2025 8:59 PM EDT us Staci Castro LAB BLOOD ORDERABLES Final Resul t [facility] [address] [place] [address] * Light Green Top (03/12/2025 8:48 PM EDT) Extra Hold for add-ons 03/13/2025 12:01 AM EDT [facility] Comment:Auto resulted. Blood Venous blood specimen / Unknown 03/12/2025 8:48 PM EDT 03/12/2025 9:20 PM EDT Delta Wilhelm MD LAB BLOOD ORDERABLES Final Result [facility] [address] [place] [address] * Light Blue Top (03/12/2025 8:48 PM EDT) Extra Hold for add-ons 03/13/2025 12:01 AM EDT [facility] Comment:Auto resulted. Blood Venous blood specimen / Unknown 03/12/2025 8:48 PM EDT 03/12/2025 9:20 PM EDT Delta Wilhelm MD LAB BLOOD ORDERABLES Final Result [facility] [address] [place] [address] * (ABNORMAL) Procalcitonin (03/12/2025 8:48 PM EDT) Procalcitonin, Plasma 0.11(H) <0.09 ng/mL 03/12/2025 9:37 PM EDT [facility] Blood Venous blood specimen / Unknown Venipuncture / Unknown 03/12/2025 8:48 PM EDT 03/12/2025 8:59 PM EDT Narrative [facility] - 03/12/2025 9:37 PM EDT [...] predict 28 day mortality risk. Please consult [email or web address] for more information. Test performed at [facility], [facility]. us Staci Castro LAB BLOOD ORDERABLES Final Resul t Performing Organization Address [facility] [address]/[facility] [place] [address] * Hepatitis C Antibody - ED (03/12/2025 8:48 PM EDT) Pathologist [facility] Hepatitis C Antibody Negative Negative 03/12/2025 9:38 PM EDT [facility] Blood Venous blood specimen / Unknown Venipuncture / Unknown 03/12/2025 8:48 PM EDT 03/12/2025 8:59 PM EDT us Staci Castro LAB BLOOD ORDERABLES Final Resul t Performing Organization Address [facility] [address] [facility] [place] [address] * (ABNORMAL) PT-INR (03/12/2025 8:48 PM EDT) Pathologist [facility] Prothrombin Time 14.6(H) 12.0 - 14.3 sec 03/12/2025 9:06 PM EDT [facility] INR 1.2(H) 0.9 - 1.1 03/12/2025 9:06 PM EDT [facility] Blood Venous blood specimen / Unknown Venipuncture / Unknown 03/12/2025 8:48 PM EDT 03/12/2025 8:53 PM EDT Narrative [facility] - 03/12/2025 9:06 PM EDT OPTIMAL INR RANGES FOR PATIENT ON ORAL ANTICOAGULANT THERAPY Prevention of venous thromboembolism INR 2.0 to 3.0 In patients with heart disease: Atrial fibrillation INR 2.0 to 3.0 Valvular heart disease INR 2.0 to 3.0 Tissue heart valves INR 2.0 to 3.0 Mechanical prosthetic valves INR 2.5 to 3.5 Prevention of recurrent RI INR 2.5 to 3.5 us Staci Castro LAB BLOOD ORDERABLES Final Resul t [facility] [address] [place] [address] * (ABNORMAL) CBC w/diff (03/12/2025 8:48 PM EDT) [facility] Signature WBC Count 9.02 3.70 - 10.30 10*3/uL LAB HEMATOLOGY METHOD 03/12/2025 8:56 PM EDT [facility] RBC Count 4.48(L) 4.60 - 6.10 10*6/uL LAB HEMATOLOGY METHOD 03/12/2025 8:56 PM EDT [facility] HGB 12.3(L) 13.7 - 17.5 g/dL LAB HEMATOLOGY METHOD 03/12/2025 8:56 PM EDT [facility] HCT 39.2(L) 40.0 - 51.0 % LAB HEMATOLOGY METHOD 03/12/2025 8:56 PM EDT [facility] Platelet Count 196 155 - 369 10*3/uL LAB HEMATOLOGY METHOD 03/12/2025 8:56 PM EDT [facility] MCV 88 79 - 98 fL LAB HEMATOLOGY METHOD 03/12/2025 8:56 PM EDT [facility] MCH 27.5 26.0 - 32.0 pg LAB HEMATOLOGY METHOD 03/12/2025 8:56 PM EDT [facility] MCHC 31.4 30.7 - 35.5 g/dL LAB HEMATOLOGY METHOD 03/12/2025 8:56 PM EDT [facility] RDW 16.8(H) 11.5 - 14.5 % LAB HEMATOLOGY METHOD 03/12/2025 8:56 PM EDT [facility] MPV 9.4 8.8 - 12.5 fL LAB HEMATOLOGY METHOD 03/12/2025 8:56 PM EDT [facility] nRBC 0.0 <=0.0 per 100 WBCs LAB HEMATOLOGY METHOD 03/12/2025 8:56 PM EDT [facility] Differential Type Automated LAB HEMATOLOGY METHOD 03/12/2025 8:56 PM EDT [facility] Neutrophils % 87 % LAB HEMATOLOGY METHOD 03/12/2025 8:56 PM EDT [facility] Lymphocytes % 11 % LAB HEMATOLOGY METHOD 03/12/2025 8:56 PM EDT [facility] Monocytes % 2 % LAB HEMATOLOGY METHOD 03/12/2025 8:56 PM EDT [facility] Eosinophils % 0 % LAB HEMATOLOGY METHOD 03/12/2025 8:56 PM EDT [facility] Basophils % 0 % LAB HEMATOLOGY METHOD 03/12/2025 8:56 PM EDT [facility] Immature Granulocytes % 0 % LAB HEMATOLOGY METHOD 03/12/2025 8:56 PM EDT [facility] Neutrophils Absolute 7.72(H) 1.60 - 6.10 10*3/uL LAB HEMATOLOGY METHOD 03/12/2025 8:56 PM EDT [facility] Lymphocytes Absolute 1.01(L) 1.20 - 3.90 10*3/uL LAB HEMATOLOGY METHOD 03/12/2025 8:56 PM EDT [facility] Monocytes Absolute 0.22(L) 0.30 - 0.90 10*3/uL LAB HEMATOLOGY METHOD 03/12/2025 8:56 PM EDT [facility] Eosinophils Absolute 0.03 0.00 - 0.50 10*3/uL LAB HEMATOLOGY METHOD 03/12/2025 8:56 PM EDT [facility] Basophils Absolute 0.02 0.00 - 0.10 10*3/uL LAB HEMATOLOGY METHOD 03/12/2025 8:56 PM EDT [facility] Immature Granulocytes Absolute 0.02 0.00 - 0.06 10*3/uL LAB HEMATOLOGY METHOD 03/12/2025 8:56 PM EDT [facility] Blood Venous blood specimen / Unknown Venipuncture / Unknown 03/12/2025 8:48 PM EDT 03/12/2025 8:53 PM EDT [facility] - 03/12/2025 8:56 PM EDT Therapeutic decision making should be based on absolute values, rather than percentages. us Staci Castro LAB BLOOD ORDERABLES Final Resul t Performing Organization Address City/[facility] [address]/ZIP Co de Phone Number [facility] [address] [place] [address] * (ABNORMAL) C-reactive protein (03/12/2025 8:48 PM EDT) Pathologist [facility] CRP, Plasma 10.6(H) <=8.0 mg/L 03/12/2025 10:27 PM EDT [facility] Blood Venous blood specimen / Unknown Venipuncture / Unknown 03/12/2025 8:48 PM EDT 03/12/2025 8:59 PM EDT Narrative [facility] - 03/12/2025 10:27 PM EDT This CRP test is appropriate for assessment of infection, systemic inflammation and/or tissue injury. To assess cardiovascular disease risk order high sensitivity CRP (CRPH). us Delta Wilhelm MD LAB BLOOD ORDERABLES Final Result Performing Organization Address [facility] [address] [facility] Co de Phone Number [facility] [address] [place] [address] * (ABNORMAL) POCT venous blood gas gem (03/12/2025 8:41 PM EDT) [facility] pH, Venous 7.34 7.32 - 7.43 03/12/2025 8:42 PM EDT [facility] pCO2, Venous 57(H) 40 - 55 mm Hg 03/12/2025 8:42 PM EDT [facility] pO2, Venous 46(H) 25 - 40 mm Hg 03/12/2025 8:42 PM EDT [facility] SO2, Venous 82(H) 65 - 80 % 03/12/2025 8:42 PM EDT [facility] Base Excess/Deficit, Venous 3.7(H) -2 - 3 mmol/L 03/12/2025 8:42 PM EDT [facility] HCO3, Venous 30.8(H) 22 - 26 mmol/L 03/12/2025 8:42 PM EDT [facility] Hemoglobin, Venous 12.3(L) 13.7 - 17.5 g/dL 03/12/2025 8:42 PM EDT [facility] Hematocrit, Venous 37.0(L) 40.0 - 51.0 % 03/12/2025 8:42 PM EDT [facility] Sodium, Venous 132(L) 136 - 145 mmol/L 03/12/2025 8:42 PM EDT [facility] Potassium, Venous 6.4(H) 3.6 - 4.9 mmol/L 03/12/2025 8:42 PM EDT [facility] Comment:Hemolyzed, result ma y be falsely increased. POCT Chloride, Venous 101 97 - 107 mmol/L 03/12/2025 8:42 PM EDT [facility] Glucose, Venous 113(H) 74 - 99 mg/dL 03/12/2025 8:42 PM EDT [facility] Ionized Calcium, Venous 4.6 4.6 - 5.1 mg/dL 03/12/2025 8:42 PM EDT [facility] Lactate, Venous 0.9 0.5 - 2.2 mmol/L 03/12/2025 8:42 PM EDT [facility] Body Temperature 37.0 Celsius 03/12/2025 8:42 PM EDT [facility] pH, Temp Corrected, Venous 7.34 7.32 - 7.43 03/12/2025 8:42 PM EDT [facility] pCO2, Temp Corrected, Venous 57(H) 40 - 55 mm Hg 03/12/2025 8:42 PM EDT [facility] pO2, Temp Corrected, Venous 46(H) 25 - 40 mm Hg 03/12/2025 8:42 PM EDT [facility] Metal Filer ID Irene Ro 03/12/2025 8:42 PM EDT [facility] Blood, Venous Whole blood specimen / Unknown 03/12/2025 8:41 PM EDT 03/12/2025 8:42 PM EDT us Generic Provider Poct LAB POINT OF CARE TEST DOCKED DEVICE UNSOLICITED RESULTS Final Result [facility] [address] [place] [address] * [place] [facility], ADDL 30 MIN (03/12/2025 8:41 [...] IN CLINIC/BEDSIDE ORDERABLES Fin al Result * CT THORACIC OUTSIDE IMAGES (03/12/2025 5:33 PM EDT) Anatomical Region Laterality Modality Computed Tomogra phy 03/12/2025 5:33 PM EDT us External Provider IMG CT PROCEDURES Final Result * CT ABDOMEN OUTSIDE IMAGES (03/12/2025 5:33 PM EDT) Anatomical Region Laterality Modality Computed Tomogra phy 03/12/2025 5:33 PM EDT us External Provider IMG CT PROCEDURES Final Result * CT NEURO OUTSIDE IMAGES (03/12/2025 5:29 PM EDT) Only the most recent of3 resultswithin the time period is included. Anatomical Region Laterality Modality Computed Tomogra phy 03/12/2025 5:29 PM EDT us External Provider IMG CT PROCEDURES Final Result from Last 3 Months Insurance [facility] MEDICARE Advance Directives * Full Code (Latest Code Status on File) Date Activated Date Inactivated Comments 03/12/2025 9:57 PM 03/17/2025 2:00 PM Question Answer Comments I have reviewed the capacity from the link above and, if needed, have updated to appropriate status: Yes Care Teams Client Application Support Engineer Relationship Specialty Start Date End Date Joycelyn Montes PA [address] [place] [address] PCP - General 04/01/23 Brinda Pineda LPN VALUE-[employer]ED [place] [address] TCM Nurse 03/18/25
--- OUTSIDE RECORDS SUMMARY | 2025-04-16 09:47 | XMS_ITS | Encounter Summary ---
Author Organization Healthcare Address [address] [place] [address] Care Team Providers Care Logger Driving Horses Name Role Phone Denis Montesie Mario Alberto LIRA Primary Care Provider [phone] Encounter Details Date Type Department Care Team ([facility] st Contact Info) Description 03/12/2025 Orders Only External Location [address] [place] [address] Provider, External Social History Tobacco Use Types [...] and Family Not on file 03/15/2025 Attends Yarsanism Services Not on file 03/15 Active Member [...] any time in the past 12 m [facility], were you homeless or living in a group home (including now)? No 03/15/2025 Utilities Answer Date Recorded In the past 12 months has th e [employer], gas, oil, or water [employer] threatened to shut off services in your [...] Diagnosis Comments CT NEURO OUTSIDE IMAGES 03/12/2025 5:23 PM EDT documented in this encounter Results * CT NEURO OUTSIDE IMAGES (03/12/2025 5:23 PM EDT) Anatomical Region Laterality Modality Computed Tomogra phy 03/12/2025 5:23 PM EDT us External Provider IMG CT PROCEDURES Final Result documented in this encounter Visit Diagnoses Not on filedocumented in this encounter Additional Health Concerns Infection Onset Date Last Indicated Resolved Time COVID-19 Rule-Out 03/12/2025 03/12/2025 03/12/2025 10:09 PM EDT Respiratory Rule-Out 03/12/2025 03/12/2025 025 1:10 AM EDT Tuberculosis Rule-Out Comment:Per Epic chat with Lay Clark DO on 03/15/25 @ [phone], there is no concern for TB. - Grover Waite 03/13/2025 03/13/2025 03/13/2025 11:31 AM EDT Assessment Noted Time A fall risk assessment has been complete d for the patient 04/07/2024 2:13 PM EDT A Body Mass Index follow-up plan has been documented for the patient 03/17/2025 11:22 AM EDT documented as of this encounter Care Teams Logger Driving Horses Relationship Specialty Start Date End Date Joycelyn Montes PA [address] [place] [address] PCP - General 04/01/23 documented as of this encounter
--- OUTSIDE RECORDS SUMMARY | 2025-04-16 09:47 | XMS_ITS | Encounter Summary ---
Author Organization Healthcare Address [address] [place] [address] Care Team Providers Care Registration Clerk Name Role Phone Denis Montesie Mario Alberto LIRA Primary Care Provider [phone] Encounter Details Date Type Department Care Team ([facility] st Contact Info) Description 03/12/2025 Orders Only External Location [address] [place] [address] Provider, External Social History Tobacco Use Types [...] any time in the past 12 m [facility], were you homeless or living in a long term (including now)? No 03/15/2025 Utilities Answer Date Recorded In the past 12 months has th e [employer], gas, oil, or water [employer] threatened to shut off services in your [...] Name Priority Date/Time Associated Diagnosis Comments CT ABDOMEN OUTSIDE IMAGES 03/12/2025 5:33 PM EDT documented in this encounter Results * CT ABDOMEN OUTSIDE IMAGES (03/12/2025 5:33 PM EDT) Anatomical Region Laterality Modality Computed Tomogra phy 03/12/2025 5:33 PM EDT External Provider IMG CT PROCEDURES Final Result documented in this encounter Visit Diagnoses Not on filedocumented in this encounter Additional Health Concerns Infection Onset Date Last Indicated Resolved Time COVID-19 Rule-Out 03/12/2025 03/12/2025 03/12/2025 10:09 PM EDT Respiratory Rule-Out 03/12/2025 03/12/2025 025 1:10 AM EDT Tuberculosis Rule-Out Comment:Per Epic chat with Lay Clark DO on 03/15/25 @ 1075, there is no concern for TB. - Grover Waite 03/13/2025 03/13/2025 03/13/2025 11:31 AM EDT Assessment Noted Time A fall risk assessment has been complete d for the patient 04/07/2024 2:13 PM EDT A Body Mass Index follow-up plan has been documented for the patient 03/17/2025 11:22 AM EDT documented as of this encounter Care Teams Registration Clerk Relationship Specialty Start Date End Date Joycelyn Montes PA [address] [place] [address] PCP - General 04/01/23 documented as of this encounter
--- OUTSIDE RECORDS SUMMARY | 2025-04-16 09:47 | XMS_ITS | Encounter Summary ---
Author Organization Healthcare Address [address] [place] [address] Care Team Providers Care Scientific Database Curator Name Role Phone Denis Montesie Mario Alberto LIRA Primary Care Provider [phone] Encounter Details Date Type Department Care Team ([facility] st Contact Info) Description 03/12/2025 Orders Only External Location [address] [place] [address] Provider, External Social History Tobacco Use Types [...] and Family Not on file 03/15/2025 Attends Congregation Services Not on file 03/15 Active Member [...] any time in the past 12 m [facility], were you homeless or living in a correction (including now)? No 03/15/2025 Utilities Answer Date Recorded In the past 12 months has th e [employer], gas, oil, or water [employer] threatened to shut off services in your [...] Name Priority Date/Time Associated Diagnosis Comments CT THORACIC OUTSIDE IMAGES 03/12/2025 5:33 PM EDT documented in this encounter Results * CT THORACIC OUTSIDE IMAGES (03/12/2025 5:33 [...] with Lay Clark DO on 03/15/25 @ 9710, there is no concern for TB. - Grover Waite 03/13/2025 03/13/2025 03/13/2025 11:31 AM EDT Assessment Noted Time A fall risk assessment has been complete d for the patient 04/07/2024 2:13 PM EDT A Body Mass Index follow-up plan has been documented for the patient 03/17/2025 11:22 AM EDT documented as of this encounter Care Teams Scientific Database Curator Relationship Specialty Start Date End Date Joycelyn Montes PA [address] [place] [address] PCP - General 04/01/23 documented as of this encounter
--- OUTSIDE RECORDS SUMMARY | 2025-04-16 09:48 | XMS_ITS | Encounter Summary ---
Author Organization [facility] Address [address] [place] [address] Care Team Providers Care Automobile Service Advisor Name Role Phone Joycelyn Montes Primary Care Provider [phone] Encounter Details Date Type Department Care Team (Latest Contact Info) Description 03/12/2025 Travel Social History Tobacco Use Types Packs/Day Years Used Date Smoking Tobacco: Every Day Cigarettes Smokeless Tobacco: Never Alcohol Use Standard Drinks/Week Comments Never 0 (1 standard drink = 0.6 oz pur e alcohol) PHQ-2 Answer Date Recorded Patient Health Questionnaire-2 Score 0 04/07/2024 Sex and Gender Information Value Date Recorded [...] Rule-Out 03/12/2025 03/12/2025 025 1:10 AM EDT Assessment Noted Time A fall risk assessment has been complete d for the patient 04/07/2024 2:13 PM EDT A Body Mass Index follow-up plan has been documented for the patient 03/17/2025 11:22 AM EDT documented as of this encounter Care Teams Automobile Service Advisor Relationship Specialty Start Date End Date Joycelyn Montes PA [address] [place] [address] PCP - General 04/01/23 documented as of this encounter
--- OUTSIDE RECORDS SUMMARY | 2025-04-16 09:48 | XMS_ITS | Encounter Summary ---
Author Organization [facility] Address [address] [place] [address] Care Team Providers Care Social Worker Aide Name Role Phone SimonJoycelyn PANKAJ Primary Care Provider [phone] Encounter Details Date Type Department Care Team (Latest Contact Info) Description 03/14/2025 Travel Social History Tobacco Use Types Packs/Day [...] and Family Not on file 03/15/2025 Attends Cheondoism Services Not on file 03/15 Active Member [...] any time in the past [address] [facility], were you homeless or living in a senior living (including now)? No 03/15/2025 Utilities Answer Date Recorded In the past 12 months has th e [employer], gas, oil, or water company threatened to [...] Date of Assessment Author No Risk Indicated 03/14/2025 8:00 PM TANNERT Heraclio Gomez RN * Question Answer Date of Assessment Author 1. Wish to be (Past 1 Month) No 025 8:00 PM Heraclio Brown RN 2. Non-Specific Active Suici андрей Thoughts (Past 1 Month) No 03/14/2025 8:00 PM EDT Heraclio Gomez RN 6. Suicidal Behavior (Lifetime) No 8:00 PM EDT Heraclio Gomez RN documented as of this encounter Plan [...] documented as of this encounter Care Teams Social Worker Aide Relationship Specialty Start Date End Date Joycelyn Montes PA [address] [place] [address] PCP - General 04/01/23 documented as of this encounter
--- OUTSIDE RECORDS SUMMARY | 2025-04-16 09:48 | XMS_ITS | Encounter Summary ---
Author Organization [facility] Address [address] [place] [address] Care Team Providers Care Nonfarm Animal Caretaker Name Role Phone Joycelyn Montes Primary Care Provider [phone] Encounter Details Date Type Department Care Team (Latest Contact Info) Description 03/13/2025 Travel Social History Tobacco Use Types Packs/Day [...] Infection Onset Date Last Indicated Resolved Time Respiratory Rule-Out 03/12/2025 03/12/2025 025 1:10 AM [...] documented as of this encounter Care Teams Nonfarm Animal Caretaker Relationship Specialty Start Date End Date Joycelyn Montes PA [address] [place] [address] PCP - General 04/01/23 documented as of this encounter
--- NOTE | 2025-04-16 09:50 | PC.NURSE ---
Patients FSBS was 94.
--- NOTE | 2025-04-16 09:55 | XR_ITS ---
PROCEDURE INFORMATION: Exam: XR Chest Exam date and time: 04/16/2025 10:58 AM Age: 74 years old Clinical indication: Shortness of breath; Additional info: SOA TECHNIQUE: Imaging protocol: Radiologic exam of the chest. Views: 2 views. COMPARISON: CR XR CHEST PORTABLE 03/12/2025 7:00 PM FINDINGS: Lungs: The lungs are moderately expanded with minimal airspace opacities in the right mid lung and left lower lobe. There is mild increased pulmonary vascularity. Pleural spaces: There is no pneumothorax or pleural effusion. Heart/Mediastinum: There is mild cardiomegaly. Bones/joints: Osseous structures demonstrate no acute abnormalities. IMPRESSION: 1. Mild increased pulmonary vascularity. 2. Resolving airspace opacities in the right mid lung and left lower lobe. These findings are likely related to atelectasis.
[2025-04-16 09:57] LABS: VBG Base Excess 0.7 mmol/L (-2.4-2.3); VBG HCO3 26.8 mmol/L (23-30); VBG Oxygen Saturation 87.7 % (50-70); VBG PCO2 53.1 mmol/L (35-51); VBG PH 7.32 mmol/L (7.31-7.41); VBG PO2 53.7 mmol/L (28-40); VBG Total CO2 28.4 mmol/L (23-27)
[2025-04-16] MEDS: IPRATROPIUM/ALBUTEROL 3 ML NEB 9 ML IH (10:03)
[2025-04-16] MEDS: METHYLPREDNISOLONE SOD SUCC 125MG VIAL 125 MG IV (10:03)
[2025-04-16 10:08] LABS: Coronavirus 19, PCR Not Detected (NotDetected); Influenza A, PCR Not Detected (NotDetected); Influenza B, PCR Not Detected (NotDetected)
[2025-04-16 10:08] LABS: Adenovirus,PCR Not Detected (NotDetected); Bordetella Pertussis Not Detected (NotDetected); Chlamydophila Pneumoniae, PCR Not Detected (NotDetected); Coronavirus 19, PCR Not Detected (NotDetected); Coronavirus 229E Not Detected (NotDetected); Coronavirus NL63 Not Detected (NotDetected); Coronavirus OC43 Not Detected (NotDetected); Coronovirus HKU1,PCR Not Detected (NotDetected); Human Metapneumovirus Not Detected (NotDetected); Influenza A, PCR Not Detected (NotDetected); Influenza AH1, 2009 Not Detected (NotDetected); Influenza AH1, PCR Not Detected (NotDetected); Influenza AH3,PCR Not Detected (NotDetected); Influenza B, PCR Not Detected (NotDetected); Mycoplasma Pneumoniae, PCR Not Detected (NotDetected); Parainfluenza 1, PCR Not Detected (NotDetected); Parainfluenza 2, PCR Not Detected (NotDetected); Parainfluenza 3, PCR Not Detected (NotDetected); Parainfluenza 4, PCR Not Detected (NotDetected); Respiratory Syncytial Virus Not Detected (NotDetected); Rhinovirus/Enterovirus Not Detected (NotDetected)
[2025-04-16 10:10] LABS: Basophils % 0.3 % (0.1-2.0); Eosinophils # 0.2 Kmm3 (0.0-0.4); Eosinophils % 1.8 % (0.1-12.0); Hematocrit 37.1 % (42.0-52.0); Hemoglobin 11.6 g/dL (14.1-18.0); Immature Granulocytes # 0.05 10^3uL; Immature Granulocytes % 0.5 %; Lymphocytes # 1.9 K/mm3 (0.7-4.5); Lymphocytes % 17.4 % (10-50); Mean Corpuscular HGB Conc 31.3 g/dL (31.8-35.4); Mean Corpuscular Hemoglobin 27.9 pg (27.0-31.2); Mean Corpuscular Volume 89.2 fl (80-94); Monocytes # 0.8 K/mm3 (0.1-1.0); Monocytes % 7.7 % (1.7-9.3); Neutrophils # 7.9 K/mm3 (1.8-7.8); Neutrophils % 72.3 % (37.0-80.0); Nucleated Red Blood Cells # 0 10^3/uL; Nucleated Red Blood Cells % 0 %; Platelet Count 173 K/mm3 (142-424); Red Blood Count 4.16 M/mm3 (4.60-6.20); Red Cell Distribution Width 17.1 % (11.5-17.5); Red Cell Distribution Width-SD 55.2 fL; White Blood Count 10.9 K/mm3 (4.8-10.8)
[2025-04-16 10:28] LABS: Albumin Level 4.2 g/dl (3.5-5.0); Chloride 103 mmol/L (98-107); Potassium 5.2 mmoL/L (3.5-5.1); Sodium 137 mmol/L (136-145)
[2025-04-16 10:31] LABS: Alanine Aminotransferase 13 U/L (12-78); Albumin/Globulin Ratio 1.4 (1.1-1.8); Alkaline Phosphatase 82 U/L (38-126); Anion Gap 9.2 mEq/L (5-15); Aspartate Amino Transferase 19 U/L (17-59); Bilirubin,Total 0.6 mg/dl (0.2-1.3); Blood Urea Nitrogen 29 mg/dl (9-20); Calcium 9.2 mg/dl (8.4-10.2); Carbon Dioxide 30 mmol/L (22.0-30.0); Creatinine Clearance Estimated 44 mL/min (50-200); Estimated Glomerular Filt Rate 28 ml/min (>60); GFR (African American) 34 ML/MIN (>60); Glucose 103 mg/dl (74-100); Total Protein,Serum 7.2 g/dl (6.3-8.2)
[2025-04-16 10:42] LABS: NT Pro Brain Natriuretic Pep. 322 pg/mL (0-125)
[2025-04-16] MEDS: PIPERACILLIN/TAZO 4.5 GM in 0.9 % SODIUM CHLORIDE 100 ML IV (10:42)
[2025-04-16 10:44] LABS: Troponin I 0.02 ng/ml (0.00-0.034)
--- OUTSIDE RECORDS SUMMARY | 2025-04-16 10:46 | XMS_ITS | CCD ---
Author Organization Unknown Care Team Providers Care Bursar Name Role Phone Unavailable Primary Care Provider Unavailabl e Unavailable Chronic Care Management Unavaila ble Summary Purpose DataExchange Insurance Providers Payer name Policy type / Coverage type Covered green party ID Effective Begin Date Effective End Date [facility] [id number] Unknown Unknown Family History Family History data not found Medication Administered No Medication Administered data Reason For Visit No Reason For Visit data Medical Equipment No Medical Equipment data Advance Directives No Advance Directive data
--- OUTSIDE RECORDS SUMMARY | 2025-04-16 10:47 | XMS_ITS | CCD ---
Author Organization Unknown Care Team Providers Care Statistical Machine Servicer Name Role Phone Unavailable Primary Care Provider Unavailabl e Unavailable Chronic Care Management Unavaila ble Summary Purpose DataExchange Insurance Providers Payer name Policy type / Coverage type Covered libertarian ID Effective Begin Date Effective End Date [facility] [id number] Unknown Unknown Family History Family History data not found Medication Administered No Medication Administered data Reason For Visit No Reason For Visit data Medical Equipment No Medical Equipment data Advance Directives No Advance Directive data
[2025-04-16 11:10] LABS: Microscopic, Urine URINE MICROSCOPIC (MICROSCOPIC)
[2025-04-16 11:14] LABS: HIV Combo NEGATIVE (Negative)
[2025-04-16 11:22] LABS: Hepatitis C Ab Qual. W/ RFX NEGATIVE (Negative)
[2025-04-16] MEDS: ACETAMINOPHEN 500MG TAB 1000 MG PO (11:32)
[2025-04-16 11:41] LABS: Appearance,Urine CLEAR (Clear); Bilirubin,Urine Negative (Negative); Blood, Urine Negative (Negative); Color,Urine YELLOW (Yellow); Glucose,Urine (UA) Negative (Negative); Ketones,Urine Negative (Negative); Leukocyte Esterase,Urine Negative (Negative); Nitrate,Urine Negative (Negative); Protein,Urine TRACE (Negative); Urobilinogen,Urine 0.2 EU/dl (0.2)
--- NOTE | 2025-04-16 11:49 | PC.NURSE ---
I notified HS of the need for a bed to admit the pt for acute hypoxic resp failure step down to the hospitalist.
[2025-04-16] MEDS: AZITHROMYCIN 500 MG in 0.9 % SODIUM CHLORIDE 250 ML 250 MG IV (12:04)
[2025-04-16 12:17] LABS: Squamous Epithelial Cell,Urine Occasional #/hpf (0-5); WBC,Urine Occasional #/hpf (0-3)
--- NOTE | 2025-04-16 12:28 | EXP.HP ---
History of Present Illness *Admission Date: 04/16/25 *Reason for visit:: Somnolence *History of present illness: Last Miller is a 74-year-old male with a medical history is significant for recently diagnosed small cell lung cancer (has declined treatment for now), COPD on room air, hypertension, CAD with stent, CKD stage III, type 2 diabetes, GERD who presents with 2 days of increased somnolence and 1 day of shakes. Per patient and they state patient went to sleep yesterday afternoon and slept continuously for 16 hours. Patient states upon waking this morning, he felt like he was shaking. Pulse ox at home noted to be in the 70s. Patient was recently admitted at for respiratory failure from pneumonia requiring intubation. He was discharged on 3 L nasal cannula. They state antibiotics were not continued at that time. Workup in the ED significant for WBC 10.9, creatinine 2.3 (baseline 1.7) BNP 322, negative respiratory panel. CXR shows resolving multifocal pneumonia but also seems to show mild pulmonary edema. He was given DuoNebs, Solu-Medrol, Zosyn, vancomycin in the ED. On my evaluation of patient, he was resting in bed comfortably without distress. He states he feels much better, breathing better. He did have diffuse crackles bilaterally. Case discussed with ED provider and decision made to admit patient for acute on chronic hypoxic respiratory failure from suspected pneumonia and/or heart failure. [facility] Disclaimer: The information contained in this section may have been updated after the patient was seen, as this information can be updated by other users. Medical History Pneumonia Bilateral lower extremity edema Tobacco abuse counseling Pulmonary nodule Cervicogenic headache Symptomatic improvement with amitriptyline 25 mg p.o. nightly. 05/21/2023: Cervical traction unit was discussed, recommended. Encounter for screening for malignant neoplasm of lung Smoking greater than 30 pack years Advised to consider smoking cessation. COPD (chronic obstructive pulmonary disease) with emphysema Gout Arthritis Hyperlipidemia Hypertension Skin cancer Kidney stone COPD (chronic obstructive pulmonary disease) Allergies History of cataract DDD (degenerative disc disease), cervical Chronic headaches Degenerative disc disease, cervical Neck Pain PILY (obstructive sleep apnea) 08/06/2023: He is doing better and trying to use CPAP every night, (93.7%) but difficulty keeping mask in place for longer than 4 hours. He will work on it. Unable to tolerate a CPAP in the past and poor compliance with O2 at night. 06/03/2023, HSAT: Total recording time 5.07 hours. Sleep latency 8 minutes, sleep efficiency of 81%. AHI 33, RDI 37, SPO2 lower than 90% was recorded during 48% of total sleep time. Lowest SPO2: 69%. Surgical History History of cataract surgery History of heart artery stent History of cardiac catheterization History of ankle surgery LEFT History of surgery STENT X1 History of total knee replacement LEFT Family History Other Diabetes Heart attack Hypertension Stroke Social History (Updated 04/16/25 @ 15:23 by Judy Mello RN) Smoking Status: Former smoker tobacco type: cigarettes packs per day: 1 years smoked: 50 second hand exposure: No alcohol intake: former substance use type: denies use current occupational status: retired Travel in the last 8 weeks?: None household members: spouse housing: house current occupational exposures/hazards: No caffeine: Yes Have you lived/traveled outside [place] in past 30 days?: No Contact w/someone who lives/traveled outside US past 30 days?: Yes Exposure to someone with infectious disease in past 14 days?: No Do you have a fever (greater than 100.4 F or 38 C)?: No Have you tested positive for COVID-19?: No Exposed to someone with COVID-19 in past 14 days?: No Do you have a sore throat?: No Do you have a cough?: No Do you have any weakness?: No Are you experiencing any nausea/vomitting?: No Do you have any diarrhea?: No Are you experiencing any unusual bleeding?: No Do you have any muscle aches/pain?: No Do you have any abdominal pain?: No Are you experiencing loss of taste or smell?: No Other Medical History Have you received the Flu Vaccine for this season: Yes Have you received the Pneumonia Vaccine: Yes Meds Home Medications and Allergies Home Medications ?Medication ?Instructions ?Recorded ?Confirmed ?Type blood-glucose meter 08/06/22 04/08/25 History lancets 21 gauge (Color Lancets) 08/06/22 04/08/25 History aspirin 325 mg tablet 325 mg PO DAILY heart health #90 11/06/22 04/08/25 Rx tabs blood sugar diagnostic (Blood #100 ea 11/06/22 04/08/25 Rx Glucose Test strips) gabapentin 600 mg tablet 600 mg PO QID Pain #120 tabs 08/16/24 04/08/25 Rx pantoprazole 40 mg tablet,delayed 40 mg PO QAM #90 tabs 08/16/24 04/08/25 Rx release atorvastatin 20 mg tablet 20 mg PO DAILY #90 tabs 08/17/24 04/08/25 Rx linagliptin 5 mg tablet (Tradjenta) 5 mg PO DAILY #90 tabs 11/16/24 04/08/25 Rx nicotine (polacrilex) 2 mg gum 2 mg buccal Q2H PRN nicotine 12/03/24 04/08/25 Rx cravings #100 ea hydrocodone 10 mg-acetaminophen 1 tab PO Q6H PRN pain #120 tabs 04/05/25 04/08/25 Rx 325 mg tablet tiotropium bromide 18 mcg capsule 1 cap inhalation DAILY #30 caps 04/13/25 Rx with inhalation device (Spiriva with HandiHaler) albuterol sulfate 90 mcg/actuation 90 mcg inhalation Q4HP PRN 04/16/25 04/16/25 History aerosol inhaler Shortness of air allopurinol 300 mg tablet 300 mg PO DAILY 04/16/25 04/16/25 History amitriptyline 25 mg tablet 25 mg PO HS Migraines 04/16/25 04/16/25 History amlodipine 10 mg tablet 10 mg PO DAILY 04/16/25 04/16/25 History dicyclomine 10 mg capsule 10 mg PO BID 04/16/25 04/16/25 History nitroglycerin 0.4 mg sublingual 0.4 mg sublingual Q5MINP PRN Chest 04/16/25 04/16/25 History tablet pain tadalafil 5 mg tablet 5 mg PO DAILY 04/16/25 04/16/25 History tamsulosin 0.4 mg capsule 0.4 mg PO DAILY 04/16/25 04/16/25 History New Prescriptions to Start Prescriptions: Allergies Allergy/AdvReac Type Severity Reaction Status Date / Time fluticasone furoate (From Allergy Severe swollen Verified 04/08/25 10:07 Breo Ellipta) throat vilanterol (From Breo Allergy Severe swollen Verified 04/08/25 10:07 Ellipta) throat Exam Data for Last 24 hours Vital signs and Labs for Last 24 Hours: Temp Pulse Resp BP Pulse Ox O2 Del Method O2 Flow Rate 101.4 F H 109 H 16 120/57 L 90 L Nasal Cannula 5 04/16/25 09:43 04/16/25 12:00 04/16/25 12:00 04/16/25 12:00 04/16/25 12:00 04/16/25 12:00 04/16/25 12:00 Laboratory Results - last 24 hr 04/16/25 09:45: WBC 10.9 H, RBC 4.16 L, Hgb 11.6 L, Hct 37.1 L, MCV 89.2, MCH 27.9, MCHC 31.3 L, RDW 17.1, Plt Count 173, MPV 10.0, Neut % (Auto) 72.3, Lymph % (Auto) 17.4, Traverse % (Auto) 7.7, Eos % (Auto) 1.8, Baso % (Auto) 0.3, Neut # (Auto) 7.9 H, Lymph # (Auto) 1.9, Traverse # (Auto) 0.8, Eos # (Auto) 0.2, Baso # (Auto) 0.0, VBG pH 7.32, VBG pCO2 53.1 H, VBG pO2 53.7 H, VBG HCO3 26.8, VBG Total CO2 28.4 H, VBG O2 Saturation 87.7 H, VBG Base Excess 0.7, VBG Lactic Acid 1.0, Sodium 137, Potassium 5.2 H, Chloride 103, Carbon Dioxide 30, Anion Gap 9.2, BUN 29 H, Creatinine 2.30 H, Estimated Creat Clear 44, Estimated GFR 28 L, Est GFR ( Amer) 34 L, Glucose 103 H, Calcium 9.2, Total Bilirubin 0.6, AST 19, ALT 13, Alkaline Phosphatase 82, Troponin I 0.02, NT-Pro-B Natriuret Pep 322 H, Total Protein 7.2, Albumin 4.2, Globulin 3.0, Albumin/Globulin Ratio 1.4, HCV Ab TERESA w/Rflx PCR Qn Negative, HIV Ag/Ab Combo Qual Negative 04/16/25 10:02: SARS-CoV-2 (PCR) Not detected, Influenza A Untype (PCR) Not detected, Influenza Type B (PCR) Not detected 04/16/25 10:04: Chlamy pneumoniae PCR Not detected, Adenovirus (PCR) Not detected, B. pertussis DNA (PCR) Not detected, Coronavirus OC43 (PCR) Not detected, Coronavirus HKU1 (PCR) Not detected, Coronavirus 229E (PCR) Not detected, SARS-CoV-2 (PCR) Not detected, Coronavirus NL63 (PCR) Not detected, Human Metapneumovir PCR Not detected, Influenza A (H1) PCR Not detected, Influ A (H1N1/09) PCR Not detected, Influenza A (H3) PCR Not detected, Influenza Type A (PCR) Not detected, Influenza Type B (PCR) Not detected, M. pneumoniae (PCR) Not detected, Parainfluenza 1 (PCR) Not detected, Parainfluenza 2 (PCR) Not detected, Parainfluenza 3 (PCR) Not detected, Parainfluenza 4 (PCR) Not detected, RSV (PCR) Not detected, Entero/Rhino (PCR) Not detected 04/16/25 11:06: Urine Color Yellow, Urine Appearance Clear, Urine pH 6.0, Ur Specific Amalia 1.020, Urine Protein Trace, Urine Glucose (UA) Negative, Urine Ketones Negative, Urine Blood Negative, Urine Nitrate Negative, Urine Bilirubin Negative, Urine Urobilinogen 0.2, Ur Leukocyte Esterase Negative, Urine RBC None, Urine WBC Occasional, Ur Squamous Epith Cells Occasional, Urine Bacteria None I & O for Last 24 hours: Intake & Output 04/13/25 04/14/25 04/15/25 04/16/25 23:59 23:59 23:59 23:59 Weight 106.594 kg Constitutional Constitutional: no acute distress and obese *Routine HEENT Exam Head: Present normocephalic Eye: Present EOMI and PERRL ENT: Present mucous membranes moist *Routine Neck Exam Neck: Present supple; Absent lymphadenopathy *Routine Respiratory Exam Respiratory: Present crackles; Absent CTA bilaterally *Routine Cardiovascular Exam Cardiovascular: Present RRR *Routine Abdominal Exam Abdominal: Present soft and normoactive bowel sounds; Absent tenderness *Routine Rectal Exam Rectal:: deferred *Routine Genitalia Exam Genitalia:: deferred *Routine Extremities Exam Extremities: Present edema; Absent cyanosis or clubbing *Routine Skin Exam Skin: Present warm; Absent rash *Routine Neurological Exam Neurological: Present alert and oriented X3 Assessment and Plan *Assessment and plan (1) Respiratory failure: Status: Acute Category: Medical Code(s): J96.90 - Respiratory failure, unspecified, unspecified whether with hypoxia or hypercapnia (2) Sepsis: Status: Acute Category: Medical Code(s): A41.9 - Sepsis, unspecified organism (3) Acute hypercapnic respiratory failure: Status: Acute Category: Medical Code(s): J96.02 - Acute respiratory failure with hypercapnia (4) Small cell lung cancer: Status: Acute Category: Medical Code(s): C34.90 - Malignant neoplasm of unspecified part of unspecified bronchus or lung Plan Last Miller is a 74-year-old male with a medical history is significant for recently diagnosed small cell lung cancer (has declined treatment for now), COPD on room air, hypertension, CAD with stent, CKD stage III, type 2 diabetes, GERD who presents with 2 days of increased somnolence and 1 day of shakes. Per patient and they state patient went to sleep yesterday afternoon and slept continuously for 16 hours. Patient states upon waking this morning, he felt like he was shaking. Pulse ox at home noted to be in the 70s. Patient was recently admitted at for respiratory failure from pneumonia requiring intubation. He was discharged on 3 L nasal cannula. They state antibiotics were not continued at that time. Workup in the ED significant for WBC 10.9, creatinine 2.3 (baseline 1.7) BNP 322, negative respiratory panel. VBG with compensated chronic hypercapnia. Temperature 101.4. CXR shows resolving multifocal pneumonia but also seems to show mild pulmonary edema. He was given DuoNebs, Solu-Medrol, Zosyn, vancomycin in the ED. On my evaluation of patient, he was resting in bed comfortably without distress. He states he feels much better, breathing better. He did have diffuse crackles bilaterally. Case discussed with ED provider and decision made to admit patient for acute on chronic hypoxic respiratory failure from suspected pneumonia and/or heart failure. #Acute on chronic hypoxic respiratory failure #Suspected hospital-acquired pneumonia #Sepsis #Possible heart failure, new onset ? Presented with hypersomnolence, hypoxia on 3 L at home. Initial WBC 10.9, temperature 101.4, with tachycardia. Denies chest pain, shortness of breath, cough. ? CXR does show multifocal pneumonia, but also some pulmonary edema on chronic interstitial changes. BNP 322. ? Started vancomycin, cefepime day 1. ? Ordered one-time dose of IV Lasix 40 mg. ? Follow-up blood, sputum cultures. ? Follow-up ECHO. ? Consider CTA chest tomorrow if minimal improvement. #Small cell lung cancer ? Revealed and biopsy results at . Offered treatment there, but patient declined. ? Establish care with oncology at [facility] with Dr. Bryan. Being evaluated for radiation therapy. #COPD ? Currently stable. Continue home Spiriva. #Hypertension ? Hold BP meds BP stable at this time. #BETTY on CKD stage III ? Creatinine 2.3, baseline around 1.7. Ordered Lasix as above for possible fluid overload. Follow-up on response. #Type 2 diabetes ? Hemoglobin A1c 0.8%. ? LDSSI, ACHS glucose checks. #GERD ? Continue home PPI. Full code DVT prophylaxis: Lovenox 30 mg
[2025-04-16 14:02] LABS: Troponin I 0.02 ng/ml (0.00-0.034)
[2025-04-16] MEDS: VANCOMYCIN/WATER FOR INJ (PEG) 1.75 GM/350 ML PIGGYBACK IV (14:31)
[2025-04-16 16:25] LABS: Troponin I 0.02 ng/ml (0.00-0.034)
[2025-04-16 16:57] LABS: POC Glucose,Bedside 175 (70-110)
[2025-04-16] MEDS: CEFEPIME HCL 2 GM in 0.9 % SODIUM CHLORIDE 100 ML IV (17:58)
[2025-04-16] MEDS: FUROSEMIDE 40MG/4ML VIAL 40 MG IV (17:58)
[2025-04-16 20:01] LABS: POC Glucose,Bedside 234 (70-110)
[2025-04-16] MEDS: AMITRIPTYLINE 25MG TABLET 25 MG PO (20:44)
[2025-04-16] MEDS: PANTOPRAZOLE 40MG TABLET 40 MG PO (20:44)
[2025-04-16] MEDS: GABAPENTIN 600MG TABLET 600 MG PO (20:44)
[2025-04-16 23:26] LABS: MRSA DNA PCR Negative (Negative)
[2025-04-17] VITALS (11 sets, daily range): BP systolic 118–160; BP diastolic 61–91; PULSE 80–99; RESP 13–20; TEMP 36.5–36.9; O2SAT 90–94; BMI 39.9
[2025-04-17] MEDS: CEFEPIME HCL 2 GM in 0.9 % SODIUM CHLORIDE 100 ML IV ×3 (01:11→17:25)
--- NOTE | 2025-04-17 04:25 | PC.NURSE ---
Patient is awake, alert and oriented, able to verbalize needs on his own. Educated on plan of care, safety and medications. Patient stands at bedside and uses the urinal with stand by assist. Repositions self and pulls self up in bed. On 5 liters nasal cannula while awake. When sleeping desats, hospitalist notified and patient was placed on venti mask while sleeping. O2 sats have been wnl with venti mask on. VSS and afebrile. No c/o pain, no s/s of distress. Call kim in place.
[2025-04-17 06:34] LABS: POC Glucose,Bedside 145 (70-110)
[2025-04-17 06:55] LABS: Basophils % 0.1 % (0.1-2.0); Hematocrit 36.4 % (42.0-52.0); Hemoglobin 11.1 g/dL (14.1-18.0); Immature Granulocytes # 0.09 10^3uL; Immature Granulocytes % 0.7 %; Lymphocytes # 1.1 K/mm3 (0.7-4.5); Lymphocytes % 8.3 % (10-50); Mean Corpuscular HGB Conc 30.5 g/dL (31.8-35.4); Mean Corpuscular Hemoglobin 26.9 pg (27.0-31.2); Mean Corpuscular Volume 88.3 fl (80-94); Mean Platelet Volume 10.1 fl (7.4-10.4); Monocytes # 0.5 K/mm3 (0.1-1.0); Monocytes % 3.7 % (1.7-9.3); Neutrophils % 87.2 % (37.0-80.0); Nucleated Red Blood Cells # 0 10^3/uL; Nucleated Red Blood Cells % 0 %; Platelet Count 162 K/mm3 (142-424); Red Blood Count 4.12 M/mm3 (4.60-6.20); Red Cell Distribution Width 16.4 % (11.5-17.5); Red Cell Distribution Width-SD 53.7 fL; White Blood Count 13.7 K/mm3 (4.8-10.8)
[2025-04-17 07:52] LABS: Albumin Level 4.1 g/dl (3.5-5.0); Chloride 96 mmol/L (98-107); Potassium 5.2 mmoL/L (3.5-5.1); Sodium 136 mmol/L (136-145)
[2025-04-17 07:55] LABS: Alanine Aminotransferase 13 U/L (12-78); Albumin/Globulin Ratio 1.3 (1.1-1.8); Alkaline Phosphatase 71 U/L (38-126); Anion Gap 16.2 mEq/L (5-15); Aspartate Amino Transferase 20 U/L (17-59); Bilirubin,Total 0.4 mg/dl (0.2-1.3); Blood Urea Nitrogen 38 mg/dl (9-20); Calcium 9.1 mg/dl (8.4-10.2); Carbon Dioxide 29 mmol/L (22.0-30.0); Creatinine Clearance Estimated 50 mL/min (50-200); Estimated Glomerular Filt Rate 33 ml/min (>60); GFR (African American) 40 ML/MIN (>60); Globulin 3.1 g/dL (1.3-3.2); Glucose 140 mg/dl (74-100); Total Protein,Serum 7.2 g/dl (6.3-8.2)
--- NOTE | 2025-04-17 08:15 | CT_ITS ---
PROCEDURE INFORMATION: Exam: CTA Chest With Contrast Exam date and time: 04/17/2025 8:56 AM Age: 74 years old Clinical indication: Other: Hypoxia. History of lung cancer TECHNIQUE: Imaging protocol: Computed tomographic angiography of the chest with contrast. Exam focused on the arteries. 3D rendering (Not supervised by radiologist): MIP and/or 3D reconstructed images were created by the technologist. Radiation optimization: All CT scans at this facility use at least one of these dose optimization techniques: automated exposure control; mA and/or kV adjustment per patient size (includes targeted exams where dose is matched to clinical indication); or iterative reconstruction. Contrast material: ISOVUE 370; Contrast volume: 70 ml; Contrast route: INTRAVENOUS (IV); COMPARISON: CT ANGIO CHEST 03/12/2025 5:33 PM FINDINGS: Pulmonary arteries: No evidence of pulmonary embolus to the segmental level. Aorta: No aneurysm of the aorta. No dissection of the aorta. Lungs: Postobstructive pneumonia in the right middle lobe. 8.4 mm nodule in the right upper lobe likely metastatic disease. Consolidation in the lower lobes may represent atelectasis or pneumonia. Pleural spaces: Small right pleural effusion. Heart: Unremarkable. No cardiomegaly. No pericardial effusion. Mediastinal space: Increasing size of mediastinal and right hilar mass. It measures 6.2 x 2.8 cm. (series 5, image 52) It narrows the bronchus to the right upper lobe ( series 5, image 56).. Lymph nodes: Unremarkable. No enlarged lymph nodes. Bones/joints: Unremarkable. No acute fracture. Soft tissues: Unremarkable. IMPRESSION: 1. No evidence of pulmonary embolus to the segmental level. 2. No aneurysm of the aorta. 3. No dissection of the aorta. 4. Increasing size of mediastinal and right hilar mass. It measures 6.2 x 2.8 cm. (series 5, image 52) It narrows the bronchus to the right upper lobe ( series 5, image 56).. Findings consistent with the history of known lung cancer 5. Postobstructive pneumonia in the right middle lobe. 6. 8.4 mm nodule in the right upper lobe likely metastatic disease. Fleischner Society follow up recommendations for incidental nodules are not indicated. Follow up per the patient's medical condition. 7. Small right pleural effusion. 8. Consolidation in the lower lobes may represent atelectasis or pneumonia.
--- NOTE | 2025-04-17 08:31 | HMH.ITSTN ---
no iv fluids needed for low GFR per Dr. Grimes. Patient is allowed to come to CT without nurse per GABRIEL Kim & Dr. Grimes.
--- NOTE | 2025-04-17 08:32 | PC.NURSE ---
Per Dr Grimes, pt is ok to be transported to CT without RN. [id number]
--- NOTE | 2025-04-17 08:49 | PC.NURSE ---
pt going to radiology at this time for CT/CTA.
--- NOTE | 2025-04-17 09:01 | PC.NURSE ---
pt returned from radiology at this time. pt back in bed. call light w/i reach.
[2025-04-17] MEDS: SODIUM CHLORIDE 0.9% 10ML SYR (RAD ONLY) 10 ML IV (09:08)
[2025-04-17] MEDS: 0.9 % SODIUM CHLORIDE 50 ML VIAL IV (09:08)
[2025-04-17] MEDS: IOPAMIDOL-370 (76%);100ML BOTTLE 70 ML IV (09:08)
--- OUTSIDE RECORDS SUMMARY | 2025-04-17 09:24 | XMS_ITS ---
Author Organization [facility] Address [address] [place] [address] Care Team Providers Care Manufacturing Operator Name Role Phone Joycelyn Montes Primary Care Provider [phone] Brinda Pineda LPN Unavailable Unavailable Transitional Care Management Status:Closed (Closed) Start date:03/18/2025 Enrollment date:03/18/2025 Enrollment reason:Identified using hospital discharge data End date:04/17/2025 Close reason:Patient graduated Overview This episode type is for outpatient care managers enrolling patients in the [facility] Transitional Care Management program. Case Team Name Relationship Phone Brinad Pineda LPN(Responsible Staff) TCM Nurse Continued Care and Services Coordination
--- OUTSIDE RECORDS SUMMARY | 2025-04-17 09:24 | XMS_ITS | Clinical Summary ---
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 4 Active HYDROcodone-tonya taminophen ([place]) 10-325 MG tablet Take 1 tablet by [...] Department Care Team Description 03/25/2025 Patient Outreach [facility] [address] [place] [address], [address] [place] [id number] Brinda Pineda LPN Follow-up 03/18/2025 Patient Outreach [address], [address] [place] [address] Brinda Pineda LPN TCM Call 03/14/2025 Travel 03/13/2025 Travel 03/12/2025 8:41 PM EDT - 03/17/2025 11:49 AM EDT Hospital Encounter [facility] Inpatient [address] [place] [address] The, MD Choco Blanchard, MD Brain Gaytan, [...] Travel 03/12/2025 Orders Only External Location [address] [place] [address] Provider, External 03/12/2025 Orders Only External Location [address] [place] [address] Provider, External 03/12/2025 Orders Only External Location [address] [place] [address] Provider, External 03/12/2025 Orders Only External Location [address] [place] [address] Provider, External 03/12/2025 Orders Only External Location [address] [place] [address] Provider, External from Last 3 [...] and Family Not on file 03/15/2025 Attends Christianity Services Not on file 03/15 Active Member [...] any time in the past 12 m [facility], were you homeless or living in a care home (including now)? No 03/15/2025 Utilities Answer Date Recorded In the past 12 months has [employer], gas, oil, or water [employer] threatened to shut off services in your [...] exists [facility]-Medicare Annual Wellness (AWV) 05/07/2020 05/07/2019 NEU-VSHSI-30 Vaccine (5 - Pfizer risk 2023- season) [...] this topic Medical Devices Implanted Type Area Ski Technician Device Identifier Shelf Expiration Date Model / Serial / Lot Stent Ureteral Double Pigtail Pos 6fr 24cm - Sn/A - [id number] Implanted:Qty: 1 on 04/27/2024 by Malik Dunaway MD at [facility] Stent Right: [id number] 10/09/2025 [id number] / N/A / [id number] Procedures Procedure Name Priority Date/Time Associated Diagnosis [...] UNSOLICITED RESULTS Routine 03/14/2025 12:03 PM EDT DC CRITICAL CARE, E/M 30-74 MINUTES Routine 03/14/2025 [...] CO2 MONITORING Routine 03/13/2025 8:00 AM EDT DC CRITICAL CARE, E/M 30-74 MINUTES Routine 03/13/2025 [...] UNSOLICITED RESULTS Routine 03/12/2025 8:41 PM EDT DC CRITICAL CARE, ADDL 30 MIN Routine 03/12/2025 [...] - 99 mg/dL 03/17/2025 8:33 AM EDT [facility] Comment:Accuracy of a glucos e result [...] Comment 03/17/2025 8:33 AM EDT [facility] Formal Wear Rental Clerk ID Lindsey Zamora 03/17/2025 8:33 AM EDT [facility] Device ID [id number] 03/17/2025 8:33 AM EDT [facility] Specimen Type POC Capillary 03/17/2025 8:33 AM EDT [facility] Blood Capillary blood specimen / Unknown 03/17/2025 8:31 AM EDT 03/17/2025 8:33 AM EDT us Bernardo Chavez MD LAB POINT OF CARE TE ST DOCKED DEVICE UNSOLICITED RESULTS Final Result [facility] [address] [place] [address] * (ABNORMAL) CBC W/O Differential (03/17/2025 5:29 AM EDT) Only the most recent of5 resultswithin the time period is included. WBC Count 7.19 3.70 - 10.30 10*3/uL LAB HEMATOLOGY METHOD 03/17/2025 5:52 AM EDT [facility] RBC Count 4.43(L) 4.60 - 6.10 10*6/uL LAB HEMATOLOGY METHOD 03/17/2025 5:52 AM EDT [facility] HGB 11.9(L) 13.7 - 17.5 g/dL LAB HEMATOLOGY METHOD 03/17/2025 5:52 AM EDT [facility] HCT 39.1(L) 40.0 - 51.0 % LAB HEMATOLOGY METHOD 03/17/2025 5:52 AM EDT [facility] Platelet Count 188 155 - 369 10*3/uL LAB HEMATOLOGY METHOD 03/17/2025 5:52 AM EDT [facility] MCV 88 79 - 98 fL LAB HEMATOLOGY METHOD 03/17/2025 5:52 AM EDT [facility] MCH 26.9 26.0 - 32.0 pg LAB HEMATOLOGY METHOD 03/17/2025 5:52 AM EDT [facility] MCHC 30.4(L) 30.7 - 35.5 g/dL LAB HEMATOLOGY METHOD 03/17/2025 5:52 AM EDT [facility] RDW 16.7(H) 11.5 - 14.5 % LAB HEMATOLOGY METHOD 03/17/2025 5:52 AM EDT [facility] MPV 10.1 8.8 - 12.5 fL LAB HEMATOLOGY METHOD 03/17/2025 5:52 AM EDT [facility] nRBC 0.0 <=0.0 per 100 WBCs LAB HEMATOLOGY METHOD 03/17/2025 5:52 AM EDT [facility] Blood Venous blood specimen / Unknown Venipuncture / Unknown 03/17/2025 5:29 AM EDT 03/17/2025 5:44 AM EDT us Gt De La Paz MD LAB BLOOD ORDERABLES Final Res ult [facility] [address] [place] [address] * (ABNORMAL) Blood gas panel, venous (03/17/2025 5:29 AM EDT) Only the most recent of7 resultswithin the time period is included. pH, Venous 7.35 7.32 - 7.43 LAB HEMATOLOGY METHOD 03/17/2025 5:39 AM EDT [facility] pCO2, Venous 59(H) 40 - 55 mmHg LAB HEMATOLOGY METHOD 03/17/2025 5:39 AM EDT [facility] pO2, Venous 71(H) 25 - 40 mmHg LAB HEMATOLOGY METHOD 03/17/2025 5:39 AM EDT [facility] SO2, Measured, Venous 95(H) 65 - 80 % LAB HEMATOLOGY METHOD 03/17/2025 5:39 AM EDT [facility] Base Excess, Venous 5.5(H) -2.0 - 3.0 mmol/L LAB HEMATOLOGY METHOD 03/17/2025 5:39 AM EDT [facility] Bicarbonate, Calculated, Venous 33(H) 22 - 26 mmol/L LAB HEMATOLOGY METHOD 03/17/2025 5:39 AM EDT [facility] Hematocrit, Whole Blood 37.2(L) 40.0 - 51.0 % LAB HEMATOLOGY METHOD 03/17/2025 5:39 AM EDT [facility] Sodium, Whole Blood 139 136 - 145 mmol/L LAB HEMATOLOGY METHOD 03/17/2025 5:39 AM EDT [facility] Potassium, Whole Blood 4.6 3.6 - 4.9 mmol/L LAB HEMATOLOGY METHOD 03/17/2025 5:39 AM EDT [facility] Chloride, Whole Blood 103 97 - 107 mmol/L LAB HEMATOLOGY METHOD 03/17/2025 5:39 AM EDT [facility] Glucose, Whole Blood 88 74 - 99 mg/dL LAB HEMATOLOGY METHOD 03/17/2025 5:39 AM EDT [facility] Lactate, Venous, Whole Blood 0.8 0.5 - 2.2 mmol/L LAB HEMATOLOGY METHOD 03/17/2025 5:39 AM EDT [facility] Ionized Calcium, Whole Blood 4.6 4.6 - 5.1 mg/dL LAB HEMATOLOGY METHOD 03/17/2025 5:39 AM EDT [facility] Blood Venous blood specimen / Unknown Venipuncture / Unknown 03/17/2025 5:29 AM EDT 03/17/2025 5:37 AM EDT Delta Wilhelm MD LAB BLOOD ORDERABLES Final Result [facility] [address] [place] [address] * (ABNORMAL) Basic metabolic panel (03/17/2025 5:29 AM EDT) Only the most recent of4 resultswithin the time period is included. Glucose, Plasma 90 74 - 99 mg/dL 03/17/2025 6:12 AM EDT [facility] BUN, Plasma 17 8 - 23 mg/dL 03/17/2025 6:12 AM EDT [facility] Creatinine, Plasma 1.31(H) 0.70 - 1.20 mg/dL 03/17/2025 6:12 AM EDT [facility] BUN/Creatinine Ratio 13 03/17/2025 6:12 AM EDT [facility] Sodium, Plasma 139 136 - 145 mmol/L 03/17/2025 6:12 AM EDT [facility] Potassium, Plasma 4.8 3.6 - 4.9 mmol/L 03/17/2025 6:12 AM EDT [facility] Comment:Hemolyzed, result ma y be falsely increased. Chloride, Plasma 102 97 - 107 mmol/L 03/17/2025 6:12 AM EDT [facility] CO2, Plasma 28 22 - 29 mmol/L 03/17/2025 6:12 AM EDT [facility] Anion Gap 9 6 - 16 mmol/L 03/17/2025 6:12 AM EDT [facility] Total Calcium, Plasma 8.7(L) 8.9 - 10.2 mg/dL 03/17/2025 6:12 AM EDT [facility] eGFRcr 57.8 mL/min/1.7 3m*2 03/17/2025 6:12 AM EDT [facility] Comment:Reported eGFRcr in m L/min/1.73m2 is based the CKD-EPI 2020 equation that does not use a race coefficient. Blood Venous blood specimen / Unknown Venipuncture / Unknown 03/17/2025 5:29 AM EDT 03/17/2025 5:40 AM EDT us Gt De La Paz MD LAB BLOOD ORDERABLES Final Res ult [facility] [address] [place] [address] * EEG (03/14/2025 1:31 PM EDT) Anatomical [...] injection 5,000 Units 5,000 Units Subcutaneous q8h [facility] Liz Echevarria MD 5,000 Units at 03/14/25 0621 insulin regular (HumuLIN R,NovoLIN R) 100 units/mL injection - Correction - Standard Dose 0-5 Units Subcutaneous q6h [facility] Lay Clark DO ipratropium-albuterol (Duo-Neb) 0.5-2.5 [...] Wilhelm MD NEUROLOGY ORDERABLES Final Result * DC CRITICAL CARE, E/M 30-74 MINUTES (03/14/2025 7:18 [...] 114 <150 mg/dL 03/14/2025 1:11 AM EDT [facility] Comment: Triglyceride Reference Range (age >17 years): Desirable: <150 mg/dL Borderline high: 150 to 199 mg/dL High: 200 to 499 mg/dL Very high: >499 mg/dL Increased risk of pancreatitis: >1000 mg/dL Fasting greater than or equal to 12 hours? Yes 03/14/2025 1:11 AM EDT [facility] Blood Venous blood specimen / Unknown Venipuncture / Unknown 03/14/2025 12:34 AM EDT 03/14/2025 12:44 AM EDT us Staci Castro LAB BLOOD ORDERABLES Final Resul t [facility] [address] [place] [address] * Bronchoalveolar Lavage Cell Count W/ Diff (03/13/2025 11:34 AM EDT) Neutrophils %, BAL 10 % LAB HEMATOLOGY METHOD 03/13/2025 5:20 PM EDT [facility] Lymphocytes %, BAL 0 % LAB HEMATOLOGY METHOD 03/13/2025 5:20 PM EDT [facility] Monocytes/Macrop hages %, BAL 84 % LAB HEMATOLOGY METHOD 03/13/2025 5:20 PM EDT [facility] Eosinophils %, BAL 0 % LAB HEMATOLOGY METHOD 03/13/2025 5:20 PM EDT [facility] Basophils %, BAL 0 % LAB HEMATOLOGY METHOD 03/13/2025 5:20 PM EDT [facility] Squamous Cells %, BAL 0 % LAB HEMATOLOGY METHOD 03/13/2025 5:20 PM EDT [facility] Bronchial Cells %, BAL 6 % LAB HEMATOLOGY METHOD 03/13/2025 5:20 PM EDT [facility] Other Cells %, BAL 0 % LAB HEMATOLOGY METHOD 03/13/2025 5:20 PM EDT [facility] Comment, BAL None LAB HEMATOLOGY METHOD 03/13/2025 5:20 PM EDT [facility] Comment:This is an appended report. These results have been appended to a previously preliminary verified report. Total Nucleated Cell Count, BAL 272 uL LAB HEMATOLOGY METHOD 03/13/2025 5:20 PM EDT [facility] Comment:Clot present, may af fect results. Test performed by manual method. Bronchoalveolar Lavage Structure of middle lobe of right lung / Unknown 03/13/2025 11:34 AM EDT 03/13/2025 11:46 AM EDT us Gt De La Paz MD LAB BODY FLUIDS AND STOOLS ORD ERABLES Final Result [facility] [address] [place] [address] * BAL Comprehensive Respiratory Panel by PCR (03/13/2025 11:34 AM EDT) BAL Comprehensive PCR Result Not Detected for all analytes Not Detected for all analytes 03/13/2025 1:44 PM EDT [facility] Bronchoalveolar Lavage Bronchoalveolar lavage fluid specimen / Unknown 03/13/2025 11:34 AM EDT 03/13/2025 1:08 PM EDT Narrative [facility] - 03/13/2025 1:44 PM EDT [...] developed and its performance characteristics determined by [facility] as appropriate for clinical purposes. This assay has not been cleared or approved by the FDA, but is performed in a CLIA regulated laboratory that is performed in a CLIA regulated laboratory that is qualified to perform high-complexity testing. The [facility] is certified under the Clinical Laboratory Improvement Amendments of 1988 (CLIA-88) as qualified to perform high complexity clinical laboratory testing. Gt De La Paz MD LAB MICROBIOLOGY - GENERAL ORD ERABLES Final Result [facility] [address] [place] [address] * Pneumocystis Jirovecii by PCR (03/13/2025 11:34 AM EDT) P. Jirovecii by PCR Not Detected 03/17/2025 12:[address] [facility] ([facility]) P. Jirovecii Source BAL 03/17/2025 12:[address] [facility] ([facility]) Bronchoalveolar Lavage Bronchoalveolar lavage fluid specimen / Unknown 03/13/2025 11:34 AM EDT 03/13/2025 11:[address] [facility] ([facility]) - 03/17/2025 12:16 AM EDT NOT DETECTED - A negative result does not rule out the presence of PCR inhibitors in the patient specimen or assay specific nucleic acid in concentrations below the level of detection by the assay. This test was developed and its performance characteristics determined by [facility]. It has not been cleared or approved by the [place] Food and Drug Administration. This test was performed in a CLIA certified laboratory and is intended for clinical purposes. Performed By: [facility] [address] [place] [id number] Lottery Sales Clerk: Filippo Cortes MD, PhD CLIA Number: [id number] Gt De La Paz MD LAB REF LAB BLOOD AND FLUID OR D Final Result Performing Organization Address City/[facility]/ZIP Co de Phone Number [facility] ([facility]) [address] [place] [address] * Body fluid, cytospin, pathologist interpretation (03/13/2025 11:34 AM EDT) Specimen Type Bronchoalveolar Lavage LAB HEMATOLOGY METHOD 03/14/2025 3:40 PM EDT [facility] Specimen Source, Body Fluid Lung, Right Middle Lobe LAB HEMATOLOGY METHOD 03/14/2025 3:40 PM EDT [facility] Clinical Diagnosis, Body Fluid Concern for R sided post-obstructive pneumonia in setting of pulmonary mass LAB HEMATOLOGY METHOD 03/14/2025 3:40 PM EDT [facility] Interpretation , Body Fluid No evidence of malignancy Predominantly alveolar macrophages Mild acute inflammatory cells A resident was involved in the service. I attest I examined the relevant preparations for the specimens and confirmed the diagnosis or interpretation. 03/14/2025 3:40 PM EDT [facility] Pathologist Signature, Body Fluid 03/14/2025 3:40 PM EDT [facility] Comment:Reviewed by: Mónica colin MD LAB CP ASR DISCLAIMER Yes 03/14/2025 3:40 PM EDT [facility] Bronchoalveolar Lavage Structure of middle lobe of right lung / Unknown 03/13/2025 11:34 AM EDT 03/13/2025 11:46 AM EDT us Gt De La Paz MD LAB BODY FLUIDS AND STOOLS ORD ERABLES Final Result [facility] [address] [place] [address] * Aspergillus galactomannan antigen (03/13/2025 11:34 AM [...] Aspergillus Galactomannan EIA is a product of [employer] and is FDA approved for in vitro diagnostic use. Testing Performed at: [employer] [address] [place] [address], [address] [place] [address] Credit Checker: Dominick Gonsalez, PhD [facility] ([facility]) CLIA # [id number] FLAG Interpretation: A = Abnormal, H = High, L = Low Bronchoalveolar Lavage Bronchoalveolar lavage fluid specimen / Unknown 03/13/2025 11:34 AM EDT 03/13/2025 11:46 AM EDT Narrative [facility] ([facility]) - 03/15/2025 6:38 PM EDT Release to patient in [facility]->Immediate us Gt De La Paz MD LAB BODY FLUIDS AND STOOLS ORD ERABLES Final Result [facility] ([facility]) * Quantitative BAL/PAL/Bronch Wash Culture and Gram StainBronchoalveolar Lavage, Right Middle Lobe (03/13/2025 11:34 AM EDT) Culture No growth at day 2 2024 8:18 AM EDT [facility] Gram Stain Result No polymorphonuclear leukocytes seen 03/15/2025 8:18 AM EDT [facility] Gram Stain Result No organisms seen 03/15/2025 8:18 AM EDT [facility] Bronchoalveolar Lavage Bronchoalveolar lavage fluid specimen / Unknown 03/13/2025 11:34 AM EDT 03/13/2025 1:08 PM EDT us Gt De La Paz MD LAB MICROBIOLOGY - GENERAL ORD ERABLES Final Result [facility] [address] [place] [address] * Non-Gynecologic Cytology, Fluid (03/13/2025 11:34 AM EDT) Case Report Cytology Case: [id number] Authorizing Provider: Gt De La Paz MD Collected: 03/13/2025 1134 Ordering Location: [facility] Inpatient Received: 03/14/2025 0828 Pathologist: Kai Gilbert MD Specimen: Bronchial Washing, Right Middle Lobe, BRONCHIAL WASHING, RIGHT MIDDLE LOBE 03/14/2025 5:[address] [facility] Final Diagnosis A. BRONCHIAL WASHING, RIGHT MIDDLE LOBE - NO EVIDENCE OF MALIGNANCY. NO VIRAL CHANGES IDENTIFIED, PREDOMINANTLY MACROPHAGES, GMS STAIN IS NEGATIVE FOR ORGANISMS. 03/14/2025 5:45 PM EDT [facility] at 1745 EDT Clinical History possible malignancy 03/14/2025 5:45 PM EDT [facility] Previous Cancer No 5:45 PM EDT [facility] Gross Description A. BRONCHIAL WASHING, RIGHT MIDDLE LOBE 20 ml's hazy fluid processed as thin prep and GMS 03/14/2025 5:45 PM EDT [facility] Non-Gynecologica l (Select Specimen Source) Specimen from lung obtained by bronchial washing procedure / Unknown 03/13/2025 11:34 AM EDT 03/14/2025 8:28 AM EDT us Gt De La Paz MD LAB CYTOLOGY ORDERABLES Final Result Performing Organization Address City/State/[facility] Co de Phone Number [facility] [address] [place] [address] * BEDSIDE BRONCHOSCOPY (03/13/2025 10:30 AM EDT) Narrative Gt De La Paz MD - 03/13/2025 10:30 AM EDT Gt De La Paz MD 03/14/2025 9:30 AM Bronchoscopy Performed by: Gt De La Paz MD Authorized by: Gt De La Paz MD us Gt De La Paz MD IN CLINIC/BEDSIDE ORDERABLES E dited Result - Final * DC CRITICAL CARE, E/M 30-74 MINUTES (03/13/2025 7:06 [...] LAB HEMATOLOGY METHOD 03/13/2025 1:12 AM EDT [facility] Blood Venous blood specimen / Unknown Venipuncture / Unknown 03/13/2025 12:57 AM EDT 03/13/2025 1:09 AM EDT Delta Wilhelm MD LAB BLOOD ORDERABLES Final Result Performing Organization Address City/[facility]/ZIP Co de Phone Number [facility] [address] [place] [address] * Ionized calcium, serum (03/13/2025 12:57 AM EDT) Ionized Calcium, Serum 4.9 4.6 - 5.3 mg/dL LAB HEMATOLOGY METHOD 03/13/2025 1:45 AM EDT [facility] Blood Venous blood specimen / Unknown Venipuncture / Unknown 03/13/2025 12:57 AM EDT 03/13/2025 1:12 AM EDT Delta Wilhelm MD LAB BLOOD ORDERABLES Final Result [facility] [address] [place] [address] * Phosphorus, Plasma (03/13/2025 12:57 AM EDT) Phosphorus, Plasma 2.8 2.5 - 4.5 mg/dL 03/13/2025 1:41 AM EDT [facility] Blood Venous blood specimen / Unknown Venipuncture / Unknown 03/13/2025 12:57 AM EDT 03/13/2025 1:12 AM EDT Delta Wilhelm MD LAB BLOOD ORDERABLES Final Result Performing Organization Address [facility] Co de Phone Number [facility] [address] [place] [address] * (ABNORMAL) Magnesium, Plasma (03/13/2025 12:57 AM EDT) Only the most recent of2 resultswithin the time period is included. Magnesium, Plasma 1.7(L) 1.9 - 2.4 mg/dL 03/13/2025 1:41 AM EDT [facility] Blood Venous blood specimen / Unknown Venipuncture / Unknown 03/13/2025 12:57 AM EDT 03/13/2025 1:12 AM EDT Delta Wilhelm MD LAB BLOOD ORDERABLES Final Result Performing Organization Address [facility]/ZIP Co de Phone Number [facility] [address] [place] [address] * (ABNORMAL) Comprehensive metabolic panel (03/13/2025 12:57 AM EDT) Only the most recent of2 resultswithin the time period is included. Glucose, Plasma 148(H) 74 - 99 mg/dL 03/13/2025 1:41 AM EDT [facility] BUN, Plasma 31(H) 8 - 23 mg/dL 03/13/2025 1:41 AM EDT [facility] Creatinine, Plasma 2.10(H) 0.70 - 1.20 mg/dL 03/13/2025 1:41 AM EDT [facility] BUN/Creatinine Ratio 15 03/13/2025 1:41 AM EDT [facility] Sodium, Plasma 136 136 - 145 mmol/L 03/13/2025 1:41 AM EDT [facility] Potassium, Plasma 4.5 3.6 - 4.9 mmol/L 03/13/2025 1:41 AM EDT [facility] Chloride, Plasma 99 97 - 107 mmol/L 03/13/2025 1:41 AM EDT [facility] CO2, Plasma 25 22 - 29 mmol/L 03/13/2025 1:41 AM EDT [facility] Anion Gap 12 6 - 16 mmol/L 03/13/2025 1:41 AM EDT [facility] Total Calcium, Plasma 9.2 8.9 - 10.2 mg/dL 03/13/2025 1:41 AM EDT [facility] Total Protein 6.5 6.3 - 7.9 g/dL 03/13/2025 1:41 AM EDT [facility] Albumin, Plasma 3.9 3.5 - 5.2 g/dL 03/13/2025 1:41 AM EDT [facility] AST, Plasma 16 10 - 50 U/L 03/13/2025 1:41 AM EDT [facility] ALT, Plasma 10 10 - 50 U/L 03/13/2025 1:41 AM EDT [facility] Alkaline Phosphatase, Plasma 77 40 - 115 U/L 03/13/2025 1:41 AM EDT [facility] Total Bilirubin, Plasma 0.3 0.2 - 1.1 mg/dL 03/13/2025 1:41 AM EDT [facility] eGFRcr 32.8 mL/min/1.7 3m*2 03/13/2025 1:41 AM EDT [facility] Comment:Reported eGFRcr in m L/min/1.73m2 is based the CKD-EPI 2020 equation that does not use a race coefficient. Blood Venous blood specimen / Unknown Venipuncture / Unknown 03/13/2025 12:57 AM EDT 03/13/2025 1:12 AM EDT Delta Wilhelm MD LAB BLOOD ORDERABLES Final Result [facility] [address] [place] [address] * Urinalysis Microscopic Examination (03/12/2025 11:05 PM EDT) Urine Urine specimen obtained by clean catch procedure / Unknown Non-blood Collection / Unknown 03/12/2025 11:05 PM EDT 03/12/2025 11:11 PM EDT Delta Wilhelm MD LAB URINE ORDERABLES Final Result [facility] [address] [place] [address] * (ABNORMAL) Opiates Confirm Urine (03/12/2025 11:05 PM EDT) Codeine <50 <50 ng/mL 03/15/2025 5:06 PM EDT [facility] Codeine Glucuronide <50 <50 ng/mL 03/15/2025 5:06 PM EDT [facility] Desmethyl Tramadol <50 <50 ng/mL 03/15/2025 5:06 PM EDT [facility] EDDP - Methadone Metabolite <50 <50 ng/mL 03/15/2025 5:06 PM EDT [facility] Hydrocodone 460(H) <50 ng/mL 03/15/2025 5:06 PM EDT [facility] Hydromorphone 177(H) <50 ng/mL 03/15/2025 5:06 PM EDT [facility] Hydromorphone Glucuronide >1,000(H) <50 ng/mL 03/15/2025 5:06 PM EDT [facility] Comment:Metabolite of Hydrom orphone Meperidine <50 <50 ng/mL 03/15/2025 5:06 PM EDT [facility] Methadone <50 <50 ng/mL 03/15/2025 5:06 PM EDT [facility] 6 Monoacetyl morphine <10 <10 ng/mL 03/15/2025 5:06 PM EDT [facility] Morphine <50 <50 ng/mL 03/15/2025 5:06 PM EDT [facility] Morphine Glucuronide <50 <50 ng/mL 03/15/2025 5:06 PM EDT [facility] Comment:Metabolite of Morphi ne Naloxone <50 <50 ng/mL 03/15/2025 5:06 PM EDT [facility] Naloxone Glucuronide <50 <50 ng/mL 03/15/2025 5:06 PM EDT [facility] Comment:Metabolite of Naloxo ne Normeperidine <50 <50 ng/mL 03/15/2025 5:06 PM EDT [facility] Tramadol <50 <50 ng/mL 03/15/2025 5:06 PM EDT [facility] Urine Urine specimen obtained by clean catch procedure / Unknown Non-blood Collection / Unknown 03/12/2025 11:05 PM EDT 03/12/2025 11:11 PM EDT Narrative [facility] - 03/15/2025 5:06 PM EDT Drug analysis is confirmed by LC-MS/MS (LC Tandem Mass Spectrometry) on Urine specimens. This test was developed and its performance characteristics determined by [facility]. It has not been cleared or approved by the FDA. The laboratory is regulated under CLIA as qualified to perform high-complexity testing. This test is used for clinical purposes. Testing is performed at the [facility], Special [facility] Laboratory. Delta Wilhelm MD LAB URINE ORDERABLES Final Result [facility] [address] [place] [address] * Drug Abuse Screen Urine (03/12/2025 11:05 PM EDT) Amphetamine Screen Urine Negative Cutoff: 500 ng/mL 03/12/2025 11:44 PM EDT [facility] Benzodiazepines Screen Urine Negative Cutoff: 200 ng/mL 03/12/2025 11:44 PM EDT [facility] Cannabinoid Screen Urine Negative Cutoff: 50 ng/mL 03/12/2025 11:44 PM EDT [facility] Cocaine Screen Urine Negative Cutoff: 300 ng/mL 03/12/2025 11:44 PM EDT [facility] Barbiturate Screen Urine Negative Cutoff: 200 ng/mL 03/12/2025 11:44 PM EDT [facility] Opiate Screen Urine Presumptive positive. Confirmation by LC-MS/MS to follow. Cutoff: 300 ng/mL 03/12/2025 11:44 PM EDT [facility] Methadone Screen Urine Negative Cutoff: 300 ng/mL 03/12/2025 11:44 PM EDT [facility] Buprenorphine Screen Urine Negative Cutoff: 10 ng/mL 03/12/2025 11:44 PM EDT [facility] Fentanyl Screen Urine Presumptive positive. Confirmation by LC-MS/MS to follow. Cutoff: 1 ng/mL 03/12/2025 11:44 PM EDT [facility] Oxycodone Screen Urine Negative Cutoff: 100 ng/mL 03/12/2025 11:44 PM EDT [facility] Urine Urine specimen obtained by clean catch procedure / Unknown Non-blood Collection / Unknown 03/12/2025 11:05 PM EDT 03/12/2025 11:11 PM EDT Delta Wilhelm MD LAB URINE ORDERABLES Final Result [facility] [address] [place] [address] * (ABNORMAL) Fentanyl Urine Confirm (03/12/2025 11:05 PM EDT) Fentanyl 3(H) <1 ng/mL 03/15/2025 5:06 PM EDT [facility] Norfentanyl 5(H) <2 ng/mL 03/15/2025 5:06 PM EDT [facility] Urine Urine specimen obtained by clean catch procedure / Unknown Non-blood Collection / Unknown 03/12/2025 11:05 PM EDT 03/12/2025 11:11 PM EDT [facility]ative [facility] LAB - 03/15/2025 5:06 PM EDT Drug analysis is confirmed by LC-MS/MS (LC Tandem Mass Spectrometry) on Urine specimens. This test was developed and its performance characteristics determined by [facility]. It has not been cleared or approved by the FDA. The laboratory is regulated under CLIA as qualified to perform high-complexity testing. This test is used for clinical purposes. Testing is performed at the [facility], Special [facility] Laboratory. Delta Wilhelm MD LAB URINE ORDERABLES Final Result [facility] [address] [place] [address] * (ABNORMAL) Urinalysis with reflex microscopic (Culture NOT Included) (03/12/2025 11:05 PM EDT) Color, Urine Yellow LAB URINALYSIS - AUTOMATED METHOD 03/13/2025 12:17 AM EDT [facility] Clarity, Urine Clear LAB URINALYSIS - AUTOMATED METHOD 03/13/2025 12:17 AM EDT [facility] Spec [place], Urine >1.030(H) 1.005 - 1.030 LAB URINALYSIS - AUTOMATED METHOD 03/13/2025 12:17 AM EDT [facility] pH, Urine 7.0 5.0 - 8.0 LAB URINALYSIS - AUTOMATED METHOD 03/13/2025 12:17 AM EDT [facility] Protein, Urine 30(A) Negative mg/dL LAB URINALYSIS - AUTOMATED METHOD 03/13/2025 12:17 AM EDT [facility] Glucose, Urine 100(A) Negative mg/dL LAB URINALYSIS - AUTOMATED METHOD 03/13/2025 12:17 AM EDT [facility] Ketones, Urine Negative Negative mg/dL LAB URINALYSIS - AUTOMATED METHOD 03/13/2025 12:17 AM EDT [facility] Blood, Urine Large(A) Negative LAB URINALYSIS - AUTOMATED METHOD 03/13/2025 12:17 AM EDT [facility] Bilirubin, Urine Negative Negative LAB URINALYSIS - AUTOMATED METHOD 03/13/2025 12:17 AM EDT [facility] Urobilinogen, Urine 0.2 0.2 to 1.0 mg/dL LAB URINALYSIS - AUTOMATED METHOD 03/13/2025 12:17 AM EDT [facility] Leukocytes, Urine Moderate(A) Negative LAB URINALYSIS - AUTOMATED METHOD 03/13/2025 12:17 AM EDT [facility] Nitrite, Urine Negative Negative LAB URINALYSIS - AUTOMATED METHOD 03/13/2025 12:17 AM EDT [facility] RBC, Urine >50(A) 0 to 3 /HPF LAB URINALYSIS - AUTOMATED METHOD 03/13/2025 12:17 AM EDT [facility] WBC, Urine >50(A) 0 to 5 /HPF LAB URINALYSIS - AUTOMATED METHOD 03/13/2025 12:17 AM EDT [facility] Squamous Epithelial Cells 0 - 2 0 to 5 /HPF LAB URINALYSIS - AUTOMATED METHOD 03/13/2025 12:17 AM EDT [facility] Hyaline Casts 0 - 2 0 to 5 /LPF LAB URINALYSIS - AUTOMATED METHOD 03/13/2025 12:17 AM EDT [facility] Bacteria, Urine Negative Negative LAB URINALYSIS - AUTOMATED METHOD 03/13/2025 12:17 AM EDT [facility] Urine Urine specimen obtained by clean catch procedure / Unknown Non-blood Collection / Unknown 03/12/2025 11:05 PM EDT 03/12/2025 11:11 PM EDT Delta Wilhelm MD LAB URINE ORDERABLES Final Result [facility] [address] [place] [address] * Shona auris Surveillance by PCR (03/12/2025 10:18 PM EDT) Shona auris PCR Result Not Detected Not Detected 03/14/2025 6:39 AM EDT [facility] Swab (Axilla and Groin) Non-blood Collection / Unknown 03/12/2025 10:18 PM EDT 03/12/2025 10:22 PM EDT Narrative [facility] - 03/14/2025 6:39 AM EDT This PCR assay was developed and its performance characteristics determined by [facility] as appropriate for clinical purposes. This assay has not been cleared or approved by the FDA, but is performed in a CLIA regulated laboratory that is qualified to perform high-complexity testing. Delta Wilhelm MD LAB MICROBIOLOGY - GENERAL ORDERABLES Final Result Performing Organization Address [facility] Co de Phone Number [facility] [address] [place] [address] * Multi Drug Resistance Test (03/12/2025 10:18 PM EDT) Culture No growth at day 1 03/14/2025 8:[address] [facility] Swab (Nares and Jazmyn Rectal) Non-blood Collection / Unknown 03/12/2025 10:18 PM EDT 03/12/2025 10:22 PM EDT Narrative [facility] - 03/14/2025 8:08 AM EDT This test was developed and its performance characteristics determined by the [facility]. Although the media is FDA-approved, it is not FDA-approved for all specimen types submitted. The FDA has determined that such clearance or approval is not necessary. This test is used for surveillance purposes. It should not be regarded as investigational or for research. The [facility] is certified under the Clinical Laboratory Improvement Amendments of 1988 (CLIA-88) as qualified to perform high complexity clinical laboratory testing. Delta Wilhelm MD LAB MICROBIOLOGY - GENERAL ORDERABLES Final Result Performing Organization Address [facility] Co de Phone Number [facility] [address] [place] [address] * (ABNORMAL) Troponin T, High Sensitivity, 2 Hour, Plasma (03/12/2025 10:17 PM EDT) Troponin T, High Sensitivity, 2 Hour 28(H) <19 ng/L 03/12/2025 10:50 PM EDT [facility] Troponin Delta Interpretation Not Calculated 03/12/2025 10:[address] [facility] Comment:Specimen not collect ed within acceptable timeframe. Delta will not be calculated. Blood Venous blood specimen / Unknown Venipuncture / Unknown 03/12/2025 10:17 PM EDT 03/12/2025 10:22 PM EDT us Staci Castro LAB BLOOD ORDERABLES Final Resul t Performing Organization Address [facility]/ZIP Co de Phone Number [facility] [address] [place] [address] * (ABNORMAL) Potassium (03/12/2025 10:17 PM EDT) Potassium, Plasma 6.3(H) 3.6 - 4.9 mmol/L 03/12/2025 10:44 PM EDT [facility] Blood Venous blood specimen / Unknown Venipuncture / Unknown 03/12/2025 10:17 PM EDT 03/12/2025 10:22 PM EDT us Delta Wilhelm MD LAB BLOOD ORDERABLES Final Result Performing Organization Address [facility] Co de Phone Number [facility] [address] [place] [address] * XR Chest 1 View (03/12/2025 9:21 [...] of the abdomen. COMPARISON: None. FINDINGS: Limited [id number] abdominal radiograph for the purpose of locating tube position. The tip of the nasogastric tube is within the proximal stomach. Procedure Note Libra Balbuena MD - 03/12/2025 CLINICAL INDICATION: Orogastric tube TECHNIQUE: Supine radiograph of the abdomen. COMPARISON: None. FINDINGS: Limited [id number] abdominal radiograph for the purpose of locatingtube [...] at day 5 03/17/2025 10:01 PM EDT [facility] Blood Structure of left forearm / Unknown Venipuncture / Unknown 03/12/2025 9:12 PM EDT 03/12/2025 9:55 PM EDT Narrative [facility] - 03/17/2025 10:01 PM EDT Low blood volume submitted, results may be compromised Result Colton Castro LAB MICROBIOLOGY - GENERAL ORDER ALLEN Final Result Performing Organization Address [facility]/ZIP Co de Phone Number [facility] [address] [place] [address] * Methemoglobin (03/12/2025 9:07 PM EDT) Pathologist [facility] Methemoglobin 0.6 0.0 - 1.5 % LAB HEMATOLOGY METHOD 03/12/2025 9:18 PM EDT [facility] Blood Venous blood specimen / Unknown Venipuncture / Unknown 03/12/2025 9:07 PM EDT 03/12/2025 9:17 PM EDT Result Colton Castro LAB BLOOD ORDERABLES Final Resul t Performing Organization Address [facility]/ZIP Co de Phone Number [facility] [address] [place] [address] * Streptococcus pneumoniae and Legionella Urinary Antigen (03/12/2025 9:00 PM EDT) Legionella pneumophila serogroup 1 Antigen Result (Urine) Negative Negative 03/12/2025 9:44 PM EDT [facility] Streptococcus pneumoniae Antigen Result (Urine) Negative Negative 03/12/2025 9:44 PM EDT [facility] Urine Urine specimen obtained by clean catch procedure / Unknown Non-blood Collection / Unknown 03/12/2025 9:00 PM EDT 03/12/2025 9:19 PM EDT us Staci Castro LAB MICROBIOLOGY - GENERAL ORDER ALLEN Final Result [facility] [address] [place] [address] * (ABNORMAL) POCT arterial blood gas gem (03/12/2025 8:57 PM EDT) pH, Arterial 7.34 7.31 - 7.42 03/12/2025 8:59 PM [address] [facility] pCO2, Arterial 53(H) 32 - 45 mm Hg 03/12/2025 8:59 PM ED[address] [facility] pO2, Arterial 75 >70 mm Hg 03/12/2025 8:59 PM EDT [facility] SO2, Arterial 98 94 - 98 % 03/12/2025 8:59 PM EDT [facility] FIO2 100.0 % 03/12/2025 8:59 PM ED[address] [facility] Base Excess, Arterial 1.9 -2 - 3 mmol/L 03/12/2025 8:59 PM ED[address] [facility] HCO3, Arterial 28.6(H) 22 - 26 mmol/L 03/12/2025 8:59 PM ED[address] [facility] Total Hemoglobin, Arterial, Whole Blood 11.8(L) 13.7 - 17.5 g/dL 03/12/2025 8:59 [address] [facility] Hematocrit, Arterial 35.0(L) 40 - 51.0 % 03/12/2025 8:59 [address] [facility] Sodium, Arterial 132(L) 136 - 145 mmol/L 03/12/2025 8:59 [address] [facility] Potassium, Arterial 6.2(H) 3.6 - 4.9 mmol/L 03/12/2025 8:59 [address] [facility] Comment:Hemolyzed, result ma y be falsely increased. Chloride, Whole Blood 101 97 - 107 mmol/L 03/12/2025 8:59 [address] [facility] Glucose, Arterial 121(H) 74 - 99 mg/dL 03/12/2025 8:59 [address] [facility] Ionized Calcium, Arterial 4.6 4.6 - 5.1 mg/dL 03/12/2025 8:59 [address] [facility] Lactate, Arterial 0.7 0.5 - 1.6 mmol/L 03/12/2025 8:59 [address] [facility] Body Temperature 37.2 Celsius 03/12/2025 8:59 [address] [facility] pH, Temp Corrected, Arterial 7.34 7.31 - 7.42 03/12/2025 8:59 [address] [facility] pCO2, Temp Corrected, Arterial 53(H) 32 - 45 mm Hg 03/12/2025 8:59 PM ED[address] [facility] pO2, Temp Corrected, Arterial 76 >70 mm Hg 03/12/2025 8:59 PM ED[address] [facility] Formal Wear Rental Clerk ID Dwayne Bose 03/12/2025 8:59 PM EDT [facility] Blood, Arterial Whole blood specimen / Unknown 03/12/2025 8:57 PM EDT 03/12/2025 8:59 PM EDT Staci Castro LAB POINT OF CARE TE ST DOCKED DEVICE UNSOLICITED RESULTS Final Result [facility] [address] [place] [id number] * SARS CoV-2/COVID-19 by PCR - Rapid (03/12/2025 8:53 PM EDT) Pathologist [facility] SARS CoV-2/COVID-1 9 RNA PCR Result Not Detected Not Detected 03/12/2025 10:09 PM EDT [facility] Swab Nasopharyngeal structure / Unknown Non-blood Collection / Unknown 03/12/2025 8:53 PM EDT 03/12/2025 9:20 PM EDT Narrative [facility] - 03/12/2025 10:09 PM EDT [...] ORDER ALLEN Final Result Performing Organization Address [facility]/ZIP Co de Phone Number [facility] [address] [place] [address] * Nasopharyngeal Respiratory Panel (03/12/2025 8:53 PM EDT) Nasopharyngeal Respiratory PCR Interpretation Not Detected for all analytes Not Detected for all analytes 03/13/2025 1:10 AM EDT [facility] Swab Nasopharyngeal structure / Unknown Non-blood Collection / Unknown 03/12/2025 8:53 PM EDT 03/12/2025 9:20 PM EDT Narrative [facility] - 03/13/2025 1:10 AM EDT [...] Respiratory PCR Panel is performed using the [employer] ePlex instrument. This test is FDA approved for use with Nasopharyngeal swabs only. This test is used for clinical purposes. It should not be regarded as investigational or for research. The [facility] is certified under the Clinical Laboratory Improvement Amendments of 1988 (CLIA-88) as qualified to perform high complexity clinical laboratory testing. us Staci Castro LAB MICROBIOLOGY - GENERAL ORDER ALLEN Final Result Performing Organization Address [facility]/ZIP Co de Phone Number [facility] [address] [place] [address] * Methicillin Resistant Staphylococcus aureus (MRSA) by PCR (03/12/2025 8:53 PM EDT) Methicillin Resistant Staphylococcus aureus (MRSA) by PCR Not Detected Not Detected 03/12/2025 10:[address] [facility] Swab Both anterior nares / Unknown Non-blood Collection / Unknown 03/12/2025 8:53 PM EDT 03/12/2025 9:20 PM EDT Narrative [facility] - 03/12/2025 10:41 PM EDT [...] MICROBIOLOGY - GENERAL ORDER ALLEN Final Result [facility] [address] [place] [address] * EKG now - STAT (adult) (03/12/2025 8:49 PM EDT) EKG DIAGNOSIS CLASS Abnormal MUSE ECG Ventricular Rate 62 BPM MUSE ECG Atrial Rate 62 BPM MUSE ECG DC Interval 168 ms MUSE ECG QRSD Interval 128 ms MUSE ECG QT Interval 416 ms MUSE ECG QTC Interval 422 ms MUSE ECG P Midway 64 degrees MUSE ECG R Midway 81 degrees MUSE ECG T Wave Midway 81 degrees MUSE ECG Diagnosis Normal sinus [...] Reactive Non Reactive 03/12/2025 9:37 PM EDT [facility] Comment:Screening for HIV 1 & 2 antibodies, and P24 antigen is NONREACTIVE. No confirmatory testing is required. Blood Venous blood specimen / Unknown Venipuncture / Unknown 03/12/2025 8:48 PM EDT 03/12/2025 9:00 PM EDT us Staci Castro LAB BLOOD ORDERABLES Final Resul t Performing Organization Address [facility]/Z[place] [address] * TSH Reflex FT4 (03/12/2025 8:48 PM EDT) Pathologist [facility] Thyroid Stimulating Hormone, Plasma 2.54 0.40 - 4.20 uIU/mL 03/12/2025 10:[address] [facility] Blood Venous blood specimen / Unknown Venipuncture / Unknown 03/12/2025 8:48 PM EDT 03/12/2025 8:59 PM EDT us Delta Wilhelm MD LAB BLOOD ORDERABLES Final Result Performing Organization Address [facility]/ZIP [place] [address] * (ABNORMAL) Troponin now and 120 min (03/12/2025 8:48 PM EDT) Pathologist [facility] Troponin T, High Sensitivity, 0 Hour 32(H) <19 ng/L 03/12/2025 9:37 PM EDT [facility] Blood Venous blood specimen / Unknown Venipuncture / Unknown 03/12/2025 8:48 PM EDT 03/12/2025 8:59 PM EDT us Staci Castro LAB BLOOD ORDERABLES Final Resul t [facility] [address] [place] [address] * Light Green Top (03/12/2025 8:48 PM EDT) Extra Hold for add-ons 03/13/2025 12:01 AM EDT [facility] Comment:Auto resulted. Blood Venous blood specimen / Unknown 03/12/2025 8:48 PM EDT 03/12/2025 9:20 PM EDT Delta Wilhelm MD LAB BLOOD ORDERABLES Final Result [facility] [address] [place] [address] * Light Blue Top (03/12/2025 8:48 PM EDT) Extra Hold for add-ons 03/13/2025 12:01 AM EDT [facility] Comment:Auto resulted. Blood Venous blood specimen / Unknown 03/12/2025 8:48 PM EDT 03/12/2025 9:20 PM EDT Delta Wilhelm MD LAB BLOOD ORDERABLES Final Result [facility] [address] [place] [address] * (ABNORMAL) Procalcitonin (03/12/2025 8:48 PM EDT) Procalcitonin, Plasma 0.11(H) <0.09 ng/mL 03/12/2025 9:37 PM EDT [facility] Blood Venous blood specimen / Unknown Venipuncture / Unknown 03/12/2025 8:48 PM EDT 03/12/2025 8:59 PM EDT Narrative [facility] - 03/12/2025 9:37 PM EDT [...] predict 28 day mortality risk. Please consult [email or web address] for more information. Test performed at [facility]. us Staci Castro LAB BLOOD ORDERABLES Final Resul t Performing Organization Address [facility] [place] [address] * Hepatitis C Antibody - ED (03/12/2025 8:48 PM EDT) Pathologist [facility] Hepatitis C Antibody Negative Negative 03/12/2025 9:38 PM EDT [facility] Blood Venous blood specimen / Unknown Venipuncture / Unknown 03/12/2025 8:48 PM EDT 03/12/2025 8:59 PM EDT us Staci Castro LAB BLOOD ORDERABLES Final Resul t Performing Organization Address [facility] [place] [address] * (ABNORMAL) PT-INR (03/12/2025 8:48 PM EDT) Pathologist [facility] Prothrombin Time 14.6(H) 12.0 - 14.3 sec 03/12/2025 9:06 PM EDT [facility] INR 1.2(H) 0.9 - 1.1 03/12/2025 9:06 PM EDT [facility] Blood Venous blood specimen / Unknown Venipuncture / Unknown 03/12/2025 8:48 PM EDT 03/12/2025 8:53 PM EDT Narrative [facility] - 03/12/2025 9:06 PM EDT OPTIMAL INR RANGES FOR PATIENT ON ORAL ANTICOAGULANT THERAPY Prevention of venous thromboembolism INR 2.0 to 3.0 In patients with heart disease: Atrial fibrillation INR 2.0 to 3.0 Valvular heart disease INR 2.0 to 3.0 Tissue heart valves INR 2.0 to 3.0 Mechanical prosthetic valves INR 2.5 to 3.5 Prevention of recurrent UT INR 2.5 to 3.5 us Staci Castro LAB BLOOD ORDERABLES Final Resul t [facility] [address] [place] [address] * (ABNORMAL) CBC w/diff (03/12/2025 8:48 PM EDT) [facility] Signature WBC Count 9.02 3.70 - 10.30 10*3/uL LAB HEMATOLOGY METHOD 03/12/2025 8:56 PM EDT [facility] RBC Count 4.48(L) 4.60 - 6.10 10*6/uL LAB HEMATOLOGY METHOD 03/12/2025 8:56 PM EDT [facility] HGB 12.3(L) 13.7 - 17.5 g/dL LAB HEMATOLOGY METHOD 03/12/2025 8:56 PM EDT [facility] HCT 39.2(L) 40.0 - 51.0 % LAB HEMATOLOGY METHOD 03/12/2025 8:56 PM EDT [facility] Platelet Count 196 155 - 369 10*3/uL LAB HEMATOLOGY METHOD 03/12/2025 8:56 PM EDT [facility] MCV 88 79 - 98 fL LAB HEMATOLOGY METHOD 03/12/2025 8:56 PM EDT [facility] MCH 27.5 26.0 - 32.0 pg LAB HEMATOLOGY METHOD 03/12/2025 8:56 PM EDT [facility] MCHC 31.4 30.7 - 35.5 g/dL LAB HEMATOLOGY METHOD 03/12/2025 8:56 PM EDT [facility] RDW 16.8(H) 11.5 - 14.5 % LAB HEMATOLOGY METHOD 03/12/2025 8:56 PM EDT [facility] MPV 9.4 8.8 - 12.5 fL LAB HEMATOLOGY METHOD 03/12/2025 8:56 PM EDT [facility] nRBC 0.0 <=0.0 per 100 WBCs LAB HEMATOLOGY METHOD 03/12/2025 8:56 PM EDT [facility] Differential Type Automated LAB HEMATOLOGY METHOD 03/12/2025 8:56 PM EDT [facility] Neutrophils % 87 % LAB HEMATOLOGY METHOD 03/12/2025 8:56 PM EDT [facility] Lymphocytes % 11 % LAB HEMATOLOGY METHOD 03/12/2025 8:56 PM EDT [facility] Monocytes % 2 % LAB HEMATOLOGY METHOD 03/12/2025 8:56 PM EDT [facility] Eosinophils % 0 % LAB HEMATOLOGY METHOD 03/12/2025 8:56 PM EDT [facility] Basophils % 0 % LAB HEMATOLOGY METHOD 03/12/2025 8:56 PM EDT [facility] Immature Granulocytes % 0 % LAB HEMATOLOGY METHOD 03/12/2025 8:56 PM EDT [facility] Neutrophils Absolute 7.72(H) 1.60 - 6.10 10*3/uL LAB HEMATOLOGY METHOD 03/12/2025 8:56 PM EDT [facility] Lymphocytes Absolute 1.01(L) 1.20 - 3.90 10*3/uL LAB HEMATOLOGY METHOD 03/12/2025 8:56 PM EDT [facility] Monocytes Absolute 0.22(L) 0.30 - 0.90 10*3/uL LAB HEMATOLOGY METHOD 03/12/2025 8:56 PM EDT [facility] Eosinophils Absolute 0.03 0.00 - 0.50 10*3/uL LAB HEMATOLOGY METHOD 03/12/2025 8:56 PM EDT [facility] Basophils Absolute 0.02 0.00 - 0.10 10*3/uL LAB HEMATOLOGY METHOD 03/12/2025 8:56 PM EDT [facility] Immature Granulocytes Absolute 0.02 0.00 - 0.06 10*3/uL LAB HEMATOLOGY METHOD 03/12/2025 8:56 PM EDT [facility] Blood Venous blood specimen / Unknown Venipuncture / Unknown 03/12/2025 8:48 PM EDT 03/12/2025 8:53 PM EDT [facility] - 03/12/2025 8:56 PM EDT Therapeutic decision making should be based on absolute values, rather than percentages. us Staci Castro LAB BLOOD ORDERABLES Final Resul t Performing Organization Address [facility]/ZIP Co de Phone Number [facility] [address] [place] [address] * (ABNORMAL) C-reactive protein (03/12/2025 8:48 PM EDT) Pathologist [facility] CRP, Plasma 10.6(H) <=8.0 mg/L 03/12/2025 10:27 PM EDT [facility] Blood Venous blood specimen / Unknown Venipuncture / Unknown 03/12/2025 8:48 PM EDT 03/12/2025 8:59 PM EDT Narrative [facility] - 03/12/2025 10:27 PM EDT This CRP test is appropriate for assessment of infection, systemic inflammation and/or tissue injury. To assess cardiovascular disease risk order high sensitivity CRP (CRPH). us Delta Wilhelm MD LAB BLOOD ORDERABLES Final Result Performing Organization Address [facility] Co de Phone Number [facility] [address] [place] [address] * (ABNORMAL) POCT venous blood gas gem (03/12/2025 8:41 PM EDT) [facility] pH, Venous 7.34 7.32 - 7.43 03/12/2025 8:42 PM EDT [facility] pCO2, Venous 57(H) 40 - 55 mm Hg 03/12/2025 8:42 PM EDT [facility] pO2, Venous 46(H) 25 - 40 mm Hg 03/12/2025 8:42 PM EDT [facility] SO2, Venous 82(H) 65 - 80 % 03/12/2025 8:[address] [facility] Base Excess/Deficit, Venous 3.7(H) -2 - 3 mmol/L 03/12/2025 8:[address] [facility] HCO3, Venous 30.8(H) 22 - 26 mmol/L 03/12/2025 8:[address] [facility] Hemoglobin, Venous 12.3(L) 13.7 - 17.5 g/dL 03/12/2025 8:[address] [facility] Hematocrit, Venous 37.0(L) 40.0 - 51.0 % 03/12/2025 8:[address] [facility] Sodium, Venous 132(L) 136 - 145 mmol/L 03/12/2025 8:[address] [facility] Potassium, Venous 6.4(H) 3.6 - 4.9 mmol/L 03/12/2025 8:[address] [facility] Comment:Hemolyzed, result ma y be falsely increased. POCT Chloride, Venous 101 97 - 107 mmol/L 03/12/2025 8:[address] [facility] Glucose, Venous 113(H) 74 - 99 mg/dL 03/12/2025 8:[address] [facility] Ionized Calcium, Venous 4.6 4.6 - 5.1 mg/dL 03/12/2025 8:[address] [facility] Lactate, Venous 0.9 0.5 - 2.2 mmol/L 03/12/2025 8:[address] [facility] Body Temperature 37.0 Celsius 03/12/2025 8:[address] [facility] pH, Temp Corrected, Venous 7.34 7.32 - 7.43 03/12/2025 8:[address] [facility] pCO2, Temp Corrected, Venous 57(H) 40 - 55 mm Hg 03/12/2025 8:[address] [facility] pO2, Temp Corrected, Venous 46(H) 25 - 40 mm Hg 03/12/2025 8:[address] [facility] Formal Wear Rental Clerk ID Irene Ro 03/12/2025 8:[address] [facility] Blood, Venous Whole blood specimen / Unknown 03/12/2025 8:41 PM EDT 03/12/2025 8:42 PM EDT us Generic Provider Poct LAB POINT OF CARE TEST DOCKED DEVICE UNSOLICITED RESULTS Final Result [facility] [address] [place] [address] * DC CRITICAL CARE, ADDL 30 MIN (03/12/2025 8:41 [...] Result from Last 3 Months Insurance [facility] MEDIC[facility] Advance Directives * Full Code (Latest Code Status on File) Date Activated Date Inactivated Comments 03/12/2025 9:57 PM 03/17/2025 2:00 PM Question Answer Comments I have reviewed the capacity from the link above and, if needed, have updated to appropriate status: Yes Care Teams Tele Grout Sewer Line Repairer Relationship Specialty Start Date End Date Joycelyn Montes PA [address] [place] [address] PCP - General 04/01/23 Brinda Pineda LPN [employer] [place] [address] TCM Nurse 03/18/25 04/17/25
--- OUTSIDE RECORDS SUMMARY | 2025-04-17 09:24 | XMS_ITS | Encounter Summary ---
Author Organization Healthcare Address [address] [place] [address] Care Team Providers Care Insurance Application Investigator Name Role Phone Joycelyn Montes PANKAJ Primary Care Provider [phone] Brinda Pineda LPN Unavailable Unavailable Encounter Details Date Type Department Care Team (Late st Contact Info) Description 02/23/2024 Orders Only External Location [address] [place] [address] Olga Shin MD [address] [place] [address] Social History Tobacco Use Types [...] 025 1:10 AM EDT Tuberculosis Rule-Out Comment:Per [facility] chat with Lay Clark, on 03/15/25 @ 8049, there is no concern for TB. - Aryaannel Ravindra 03/13/2025 03/13/2025 03/13/2025 11:31 AM EDT documented as of this encounter Care Teams Insurance Application Investigator Relationship Specialty Start Date End Date Joycelyn Montes PA [address] [place] [address] PCP - General 04/01/23 Brinda Pineda LPN [employer] [place] [address] TCM Nurse 03/18/25 04/17/25 documented as of this encounter
--- OUTSIDE RECORDS SUMMARY | 2025-04-17 09:25 | XMS_ITS | Encounter Summary ---
Author Organization [facility] Address [address] [place] [address] Care Team Providers Care Parking Technician Name Role Phone SimonJoycelyn PANKAJ Primary Care Provider [phone] Brinda Pineda LPN Unavailable Unavailable Reason for Visit * Reason Comments Follow-up Encounter Details Date Type Department Care Team (Late st Contact Info) Description 03/25/2025 Patient Outreach POPULATION HEALTH [address] [facility], [address] [place] [address] Brinda Pineda LPN [employer] [place] [address] Follow-up Social History Tobacco Use Types Packs/Day [...] and Family Not on file 03/15/2025 Attends Bahai Services Not on file 03/15 Active Member [...] any time in the past 12 m [facility], were you homeless or living in [...] documented as of this encounter Care Teams Parking Technician Relationship Specialty Start Date End Date Joycelyn Montes PA [address] [place] [address] PCP - General 04/01/23 Brinda Pineda LPN [employer] [place] [address] TCM Nurse 03/18/25 04/17/25 documented as of this encounter
--- OUTSIDE RECORDS SUMMARY | 2025-04-17 09:25 | XMS_ITS ---
Author Organization [facility] Address [address] [place] [address] Care Team Providers Care Butcherette Name Role Phone SimonJoycelyn PANKAJ Primary Care Provider [phone] Brinda Pineda LPN Unavailable Unavailable Active Problems [...]
--- OUTSIDE RECORDS SUMMARY | 2025-04-17 09:25 | XMS_ITS | Encounter Summary ---
Author Organization Healthcare Address [address] [place] [address] Care Team Providers Care Booster Station Operator Name Role Phone Denis Montesie Mario Alberto LIRA Primary Care Provider [phone] Encounter Details Date Type Department Care Team ([facility] st Contact Info) Description 03/12/2025 Orders Only External Location [address] [place] [address] Provider, External Social History Tobacco Use Types [...] and Family Not on file 03/15/2025 Attends [employer] Services Not on file 03/15 Active Member [...] any time in the past [address] [facility], were you homeless or living in a senior living (including now)? No 03/15/2025 Utilities Answer Date Recorded In the past 12 months has th e [employer], gas, oil, or water [employer] threatened to shut off services in your [...] with Lay Clark DO on 03/15/25 @ 3988, there is no concern for TB. - Grover Waite 03/13/2025 03/13/2025 03/13/2025 11:31 AM EDT Assessment Noted Time A fall risk assessment has been complete d for the patient 04/07/2024 2:13 PM EDT A Body Mass Index follow-up plan has been documented for the patient 03/17/2025 11:22 AM EDT documented as of this encounter Care Teams Booster Station Operator Relationship Specialty Start Date End Date Joycelyn Montes PA [address] [place] [address] PCP - General 04/01/23 documented as of this encounter
--- OUTSIDE RECORDS SUMMARY | 2025-04-17 09:25 | XMS_ITS | Encounter Summary ---
Author Organization [facility] Address [address] [place] [address] Care Team Providers Care Lead Principal Technical Architect Name Role Phone SimonJoycelyn PANKAJ Primary Care Provider [phone] Encounter Details Date Type Department Care Team [...] and Family Not on file 03/15/2025 Attends Mosque Services Not on file 03/15 Active Member [...] any time in the past 12 m [facility], were you homeless or living in a long-term (including now)? No 03/15/2025 Utilities Answer Date Recorded In the past 12 months has th e [employer], gas, oil, or water company threatened to [...] documented as of this encounter Care Teams Lead Principal Technical Architect Relationship Specialty Start Date End Date Joycelyn Montes PA [address] [place] [address] PCP - General 04/01/23 documented as of this encounter
--- OUTSIDE RECORDS SUMMARY | 2025-04-17 09:25 | XMS_ITS | Encounter Summary ---
Author Organization Healthcare Address [address] [place] [address] Care Team Providers Care Berry Planter Name Role Phone Denis Montesie Mario Alberto LIRA Primary Care Provider [phone] Encounter Details Date Type Department Care Team ([facility] st Contact Info) Description 03/12/2025 Orders Only External Location [address] [place] [address] Provider, External Social History Tobacco Use Types [...] and Family Not on file 03/15/2025 Attends Restorationist Services Not on file 03/15 Active Member [...] the past 12 months has th e [employer], gas, oil, or water [employer] threatened to shut off services in your [...] with Lay Clark DO on 03/15/25 @ 3577, there is no concern for TB. - Grover Waite 03/13/2025 03/13/2025 03/13/2025 11:31 AM EDT Assessment Noted Time A fall risk assessment has been complete d for the patient 04/07/2024 2:13 PM EDT A Body Mass Index follow-up plan has been documented for the patient 03/17/2025 11:22 AM EDT documented as of this encounter Care Teams Berry Planter Relationship Specialty Start Date End Date Joycelyn Montes PA [address] [place] [address] PCP - General 04/01/23 documented as of this encounter
--- OUTSIDE RECORDS SUMMARY | 2025-04-17 09:25 | XMS_ITS | Encounter Summary ---
Author Organization Healthcare Address [address] [place] [address] Care Team Providers Care Electronic Organ Technician Name Role Phone Denis Montesie Mario Alberto LIRA Primary Care Provider [phone] Encounter Details Date Type Department Care Team ([facility] st Contact Info) Description 03/12/2025 Orders Only External Location [address] [place] [address] Provider, External Social History Tobacco Use Types [...] any time in the past 12 m [facility], were you homeless or living in a fdc (including now)? No 03/15/2025 Utilities Answer Date Recorded In the past 12 months has th e [employer], gas, oil, or water [employer] threatened to shut off services in your [...] with Lay Clark DO on 03/15/25 @ 6874, there is no concern for TB. - Grover Waite 03/13/2025 03/13/2025 03/13/2025 11:31 AM EDT Assessment Noted Time A fall risk assessment has been complete d for the patient 04/07/2024 2:13 PM EDT A Body Mass Index follow-up plan has been documented for the patient 03/17/2025 11:22 AM EDT documented as of this encounter Care Teams Electronic Organ Technician Relationship Specialty Start Date End Date Joycelyn Montes PA [address] [place] [address] PCP - General 04/01/23 documented as of this encounter
--- OUTSIDE RECORDS SUMMARY | 2025-04-17 09:25 | XMS_ITS | Encounter Summary ---
Author Organization Healthcare Address [address] [place] [address] Care Team Providers Care Safety And Security Officer Name Role Phone Denis Montesie Mario Alberto LIRA Primary Care Provider Encounter Details Date Type Department Care Team ([facility] st Contact Info) Description 03/12/2025 Orders Only External Location [address] [place] [address] Provider, External Social History Tobacco Use Types [...] and Family Not on file 03/15/2025 Attends Adventism Services Not on file 03/15 Active Member [...] any time in the past 12 m [facility], were you homeless or living in a custodial (including now)? No 03/15/2025 Utilities Answer Date Recorded In the past 12 months has th e [employer], gas, oil, or water [employer] threatened to shut off services in your [...] with Lay Clark DO on 03/15/25 @ 7098, there is no concern for TB. - Grover Waite 03/13/2025 03/13/2025 03/13/2025 11:31 AM EDT Assessment Noted Time A fall risk assessment has been complete d for the patient 04/07/2024 2:13 PM EDT A Body Mass Index follow-up plan has been documented for the patient 03/17/2025 11:22 AM EDT documented as of this encounter Care Teams Safety And Security Officer Relationship Specialty Start Date End Date Joycelyn Montes PA [address] [place] [address] PCP - General 04/01/23 documented as of this encounter
--- OUTSIDE RECORDS SUMMARY | 2025-04-17 09:25 | XMS_ITS | Encounter Summary ---
Author Organization [facility] Address [address] [place] [address] Care Team Providers Care General Adjuster Name Role Phone Joycelyn Montes Primary Care Provider Encounter Details Date Type [...] documented as of this encounter Care Teams General Adjuster Relationship Specialty Start Date End Date Joycelyn Montes PA [address] [place] [address] PCP - General 04/01/23 documented as of this encounter
--- OUTSIDE RECORDS SUMMARY | 2025-04-17 09:25 | XMS_ITS | Encounter Summary ---
Author Organization [facility] Address [address] [place] [address] Care Team Providers Care Copra Processor Name Role Phone SimonJoycelyn PANKAJ Primary Care Provider [phone] Brinda Pineda LPN Unavailable Unavailable Reason for Visit * Reason Comments TCM Call Encounter Details Date Type Department Care Team (Late st Contact Info) Description 03/18/2025 Patient Outreach POPULATION [facility] [address] [facility], [address] [place] [address] Brinda Pineda LPN [employer] [place] [address] TCM Call Social History Tobacco Use Types [...] and Family Not on file 03/15/2025 Attends Orthodox Services Not on file 03/15 Active Member [...] time in the past 12 m [facility], were you homeless or living in a [...] call # 1 Patient Reached: Yes Outcome: ANGELO nurse reached out to patient regarding recent [...] He plans to reach out to local Leasing Assistant regarding dosage change of Aspirin. SDOH assessment is up to date, no issue with transportation. No upcoming appointments scheduled at [facility]. Patient does not have an appointment with [...] documented as of this encounter Care Teams Copra Processor Relationship Specialty Start Date End Date Joycelyn Montes PA [address] [place] [address] PCP - General 04/01/23 Brinda Pineda LPN [employer] [place] [address] TCM Nurse 03/18/25 04/17/25 documented as of this encounter
--- OUTSIDE RECORDS SUMMARY | 2025-04-17 09:25 | XMS_ITS | Encounter Summary ---
Author Organization Healthcare Address [address] [place] [address] Care Team Providers Care Business Integration Analyst Name Role Phone Denis Montesie Mario Alberto LIRA Primary Care Provider [phone] Encounter Details Date Type Department Care Team ([facility] st Contact Info) Description 03/12/2025 Orders Only External Location [address] [place] [address] Provider, External Social History Tobacco Use Types [...] and Family Not on file 03/15/2025 Attends Mormon Services Not on file 03/15 Active Member [...] any time in the past 12 m [facility], were you homeless or living in a senior care (including now)? No 03/15/2025 Utilities Answer Date Recorded In the past 12 months has th e [employer], gas, oil, or water [employer] threatened to shut off services in your [...] with Lay Clark DO on 03/15/25 @ 1828, there is no concern for TB. - Grover Waite 03/13/2025 03/13/2025 03/13/2025 11:31 AM EDT Assessment Noted Time A fall risk assessment has been complete d for the patient 04/07/2024 2:13 PM EDT A Body Mass Index follow-up plan has been documented for the patient 03/17/2025 11:22 AM EDT documented as of this encounter Care Teams Business Integration Analyst Relationship Specialty Start Date End Date Joycelyn Montes PA [address] [place] [address] PCP - General 04/01/23 documented as of this encounter
--- OUTSIDE RECORDS SUMMARY | 2025-04-17 09:25 | XMS_ITS | Encounter Summary ---
Author Organization [facility] Address [address] [place] [address] Care Team Providers Care Fitter Tacker Name Role Phone Joycelyn Montes Primary Care Provider [phone] Encounter Details Date Type Department Care Team [...] documented as of this encounter Care Teams Fitter Tacker Relationship Specialty Start Date End Date Joycelyn Montes PA [address] [place] [address] PCP - General 04/01/23 documented as of this encounter
[2025-04-17] MEDS: ASPIRIN 325MG TABLET 325 MG PO (10:02)
[2025-04-17] MEDS: ALLOPURINOL 300MG TABLET 300 MG PO (10:02)
[2025-04-17] MEDS: TAMSULOSIN 0.4MG CAPSULE 0.4 MG PO (10:02)
[2025-04-17] MEDS: SPIRONOLACTONE 25MG TABLET 25 MG PO (10:03)
[2025-04-17] MEDS: ENOXAPARIN 40MG/0.4ML SYRINGE 40 MG SUBCUT ×2 (10:03→21:05)
[2025-04-17] MEDS: FUROSEMIDE 40MG/4ML VIAL 40 MG IV ×2 (10:04→17:25)
[2025-04-17] MEDS: GABAPENTIN 600MG TABLET 600 MG PO ×4 (10:09→21:05)
--- OUTSIDE RECORDS SUMMARY | 2025-04-17 10:23 | XMS_ITS | CCD ---
Author Organization Unknown Care Team Providers Care Motion Graphics Designer Name Role Phone Unavailable Primary Care Provider Unavailabl e Unavailable Chronic Care Management Unavaila ble Summary Purpose DataExchange Insurance Providers Payer name Policy type / Coverage type Covered republican ID Effective Begin Date Effective End Date [facility] [id number] Unknown Unknown Family History Family History data not found Medication Administered No Medication Administered data Reason For Visit No Reason For Visit data Medical Equipment No Medical Equipment data Advance Directives No Advance Directive data
--- OUTSIDE RECORDS SUMMARY | 2025-04-17 10:24 | XMS_ITS | CCD ---
Author Organization Unknown Care Team Providers Care Internal Communications Manager Name Role Phone Unavailable Primary Care Provider Unavailabl e Unavailable Chronic Care Management Unavaila ble Summary Purpose DataExchange Insurance Providers Payer name Policy type / Coverage type Covered democrat ID Effective Begin Date Effective End Date [facility] [id number] Unknown Unknown Family History Family History data not found Medication Administered No Medication Administered data Reason For Visit No Reason For Visit data Medical Equipment No Medical Equipment data Advance Directives No Advance Directive data
[2025-04-17] MEDS: TIOTROPIUM 18MCG/PUFF INHALER 1 CAP IH (10:56)
--- NOTE | 2025-04-17 11:11 | PC.NURSE ---
pt moving to M/S at this time.
--- NOTE | 2025-04-17 11:14 | PC.NURSE ---
arrived by w/c from ICU
[2025-04-17] MEDS: DOXYCYCLINE HYCL 100 MG TABLET PO ×2 (11:24→21:05)
[2025-04-17 11:47] LABS: POC Glucose,Bedside 129 (70-110)
[2025-04-17 18:28] LABS: POC Glucose,Bedside 149 (70-110)
[2025-04-17] MEDS: AMITRIPTYLINE 25MG TABLET 25 MG PO (21:05)
[2025-04-17] MEDS: PANTOPRAZOLE 40MG TABLET 40 MG PO (21:05)
[2025-04-17] MEDS: ATORVASTATIN 20MG TABLET 20 MG PO (21:05)
[2025-04-17 21:25] LABS: POC Glucose,Bedside 109 (70-110)
--- NOTE | 2025-04-17 22:17 | P.PN_ITS ---
Subjective *Date: 04/17/25 *Time: 22:17 Interval history: Patient feels much better after diuresis overnight. Will continue diuretics. Follow-up ECHO, cardiology, pulmonology recommendations tomorrow. Exam Data for Last 24 hours Vital signs and Labs for Last 24 Hours: Temp Pulse Resp BP Pulse Ox O2 Del Method O2 Flow Rate 98.4 F 92 H 16 122/65 94 L Nasal Cannula 2 04/17/25 19:58 04/17/25 19:58 04/17/25 19:58 04/17/25 19:58 04/17/25 19:58 04/17/25 19:58 04/17/25 19:58 Laboratory Results - last 24 hr 04/16/25 14:33: MRSA (PCR) Negative 04/17/25 05:54: POC Glucose 145 H 04/17/25 06:40: WBC 13.7 H D, RBC 4.12 L, Hgb 11.1 L, Hct 36.4 L, MCV 88.3, MCH 26.9 L, MCHC 30.5 L, RDW 16.4, Plt Count 162, MPV 10.1, Neut % (Auto) 87.2 H, Lymph % (Auto) 8.3 L, [place] % (Auto) 3.7, Eos % (Auto) 0.0 L, Baso % (Auto) 0.1, Neut # (Auto) 12.0 H, Lymph # (Auto) 1.1, [place] # (Auto) 0.5, Eos # (Auto) 0.0, Baso # (Auto) 0.0, Sodium 136, Potassium 5.2 H, Chloride 96 L, Carbon Dioxide 29, Anion Gap 16.2 H, BUN 38 H D, Creatinine 2.00 H, Estimated Creat Clear 50, Estimated GFR 33 L, Est GFR ( Amer) 40 L, Glucose 140 H D, Calcium 9.1, Total Bilirubin 0.4, AST 20, ALT 13, Alkaline Phosphatase 71, Total Protein 7.2, Albumin 4.1, Globulin 3.1, Albumin/Globulin Ratio 1.3 04/17/25 11:39: POC Glucose 129 H 04/17/25 18:20: POC Glucose 149 H 04/17/25 21:09: POC Glucose 109 I & O for Last 24 hours: Intake & Output 06/04/15/25 04/16/25 04/17/25 23:59 23:59 23:59 23:59 Intake Total 940 / 1160 910 / 910 Output Total 1745 / 2295 4050 / 4050 Balance -805 / -1135 -3140 / -3140 Weight 106.594 kg 106.231 kg Microbiology Reports for the Last 24 Hours: Microbiology 04/16/25 09:45 Blood Blood Culture - Preliminary NO GROWTH AFTER 24 HOURS 04/16/25 09:45 Blood Blood Culture - Preliminary NO GROWTH AFTER 24 HOURS Constitutional Constitutional: no acute distress *Routine HEENT Exam Head: Present normocephalic Eye: Present EOMI and PERRL ENT: Present mucous membranes moist *Routine Neck Exam Neck: Present supple; Absent lymphadenopathy *Routine Respiratory Exam Respiratory: Present CTA bilaterally *Routine Cardiovascular Exam Cardiovascular: Present RRR *Routine Abdominal Exam Abdominal: Present soft and normoactive bowel sounds; Absent tenderness *Routine Extremities Exam Extremities: Absent cyanosis, clubbing or edema *Routine Skin Exam Skin: Present warm; Absent rash *Routine Neurological Exam Neurological: Present alert and oriented X3 Assessment and Plan *Assessment and plan (1) Respiratory failure: Status: Acute Category: Medical Code(s): J96.90 - Respiratory failure, unspecified, unspecified whether with hypoxia or hypercapnia (2) Sepsis: Status: Acute Category: Medical Code(s): A41.9 - Sepsis, unspecified organism (3) Acute hypercapnic respiratory failure: Status: Acute Category: Medical Code(s): J96.02 - Acute respiratory failure with hypercapnia (4) Small cell lung cancer: Status: Acute Category: Medical Code(s): C34.90 - Malignant neoplasm of unspecified part of unspecified bronchus or lung Plan Last Miller is a 74-year-old male with a medical history is significant for recently diagnosed small cell lung cancer (has declined treatment for now), COPD on room air, hypertension, CAD with stent, CKD stage III, type 2 diabetes, GERD who presents with 2 days of increased somnolence and 1 day of shakes. Per patient and they state patient went to sleep yesterday afternoon and slept continuously for 16 hours. Patient states upon waking this morning, he felt like he was shaking. Pulse ox at home noted to be in the 70s. Patient was recently admitted at for respiratory failure from pneumonia requiring intubation. He was discharged on 3 L nasal cannula. They state antibiotics were not continued at that time. Workup in the ED significant for WBC 10.9, creatinine 2.3 (baseline 1.7) BNP 322, negative respiratory panel. VBG with compensated chronic hypercapnia. Temperature 101.4. CXR shows resolving multifocal pneumonia but also seems to show mild pulmonary edema. He was given DuoNebs, Solu-Medrol, Zosyn, vancomycin in the ED. On my evaluation of patient, he was resting in bed comfortably without distress. He states he feels much better, breathing better. He did have diffuse crackles bilaterally. Case discussed with ED provider and decision made to admit patient for acute on chronic hypoxic respiratory failure from suspected pneumonia and/or heart failure. #Acute on chronic hypoxic respiratory failure #Suspected hospital-acquired pneumonia #Postobstructive pneumonia #Sepsis #Heart failure, new onset ? Presented with hypersomnolence, hypoxia on 3 L at home. Initial WBC 10.9, temperature 101.4, with tachycardia. Denies chest pain, shortness of breath, cough. ? CXR does show multifocal pneumonia, but also some pulmonary edema on chronic interstitial changes. BNP 322. ? Continue cefepime, doxycycline day 2. ?Continue IV Lasix 40 mg twice daily, spironolactone 25 mg. Diuresing well. Net -3.9 L. ? Follow-up blood, sputum cultures. ? Follow-up ECHO. ? Cardiology and pulmonology consulted, pending further recommendations. #Small cell lung cancer ? Revealed in biopsy results at . Offered treatment there, but patient declined. ? Establish care with oncology at [place] with Dr. Bryan. Being evaluated for radiation therapy. #COPD ? Currently stable. Continue home Spiriva. #Hypertension ? Hold BP meds BP stable at this time. #BETTY on CKD stage III ? Creatinine 2.3, baseline around 1.7. Creatinine improved to 2.3 with diuretics. #Type 2 diabetes ? Hemoglobin A1c 0.8%. ? LDSSI, ACHS glucose checks. #GERD ? Continue home PPI. Full code DVT prophylaxis: Lovenox 30 mg
[2025-04-18] VITALS: BP 144/80; PULSE 86; RESP 18; TEMP 36.9; O2SAT 93
[2025-04-18] MEDS: CEFEPIME HCL 2 GM in 0.9 % SODIUM CHLORIDE 100 ML IV (02:00)
[2025-04-18 04:00] VITALS: BP 136/74; PULSE 88; RESP 15; TEMP 36.4; O2SAT 92; BMI 38.5
--- NOTE | 2025-04-18 04:20 | PC.NURSE ---
Patient is alert and oriented x4. He was observed to have eyes closed, respirations even and unlabored on 2 L of oxygen via nasal cannula, and no apparent distress throughout the majority of the night. Oxygen saturations have remained > 90%. Upon initial assessment, the patient stated that he has not had any coughing episodes; no coughing was observed thus far this shift as well, so, a sputum sample remains uncollected. Diminished lung sounds throughout + crackles in the right bases were heard upon auscultation. Trace edema was observed in his bilateral lower extremities. Mild tremor noted to upper extremities. Scheduled medications were administered per DEC. Patient has been ambulating independently without difficulty + use of a walker (standby assistance as needed) in his room/to the bathroom. A urinal was utilized to monitor urinary output, measured and documented accordingly. ACHS glucose checks performed. Vital signs presently stable. At this time, the patient is resting in bed without any further complaints. No new needs at this time. Call light within reach.
[2025-04-18 05:55] LABS: Basophils % 0.2 % (0.1-2.0); Eosinophils # 0.1 Kmm3 (0.0-0.4); Eosinophils % 0.6 % (0.1-12.0); Hematocrit 37.7 % (42.0-52.0); Hemoglobin 11.7 g/dL (14.1-18.0); Immature Granulocytes # 0.06 10^3uL; Immature Granulocytes % 0.5 %; Lymphocytes # 1.8 K/mm3 (0.7-4.5); Lymphocytes % 15.4 % (10-50); Mean Corpuscular Hemoglobin 27.1 pg (27.0-31.2); Mean Corpuscular Volume 87.5 fl (80-94); Mean Platelet Volume 9.7 fl (7.4-10.4); Monocytes # 0.9 K/mm3 (0.1-1.0); Monocytes % 7.2 % (1.7-9.3); Neutrophils # 9.1 K/mm3 (1.8-7.8); Neutrophils % 76.1 % (37.0-80.0); Nucleated Red Blood Cells # 0 10^3/uL; Nucleated Red Blood Cells % 0 %; Platelet Count 178 K/mm3 (142-424); Red Blood Count 4.31 M/mm3 (4.60-6.20); Red Cell Distribution Width 16.6 % (11.5-17.5); Red Cell Distribution Width-SD 53.1 fL; White Blood Count 11.9 K/mm3 (4.8-10.8)
--- NOTE | 2025-04-18 06:00 | CA_ITS ---
APPROVED REPORT EXAM: Comprehensive 2D, Doppler, and color-flow Echocardiogram Wing Commander: Khloe Keith CRT Ht: 5 ft 4 in Wt: 231lbs BSA: 2.08 BP: 126/73 mmHg Indications: Congestive Heart Failure, COPD, Diabetes, CAD, Hyperlipidemia, Hypertension/HDD 2D Dimensions LA Volume 28.90 mL LA Volume Index 13.60 mL/m2 (M/F) 16-34 M-Mode Dimensions RVDd 2.85 cm (0.9-2.6) LA Diam 3.61 cm (1.9-4.0) LVDd 5.02 cm (3.5-5.7) LVDs 3.17 cm (3.5-5.7) IVSd 2.10 cm (0.6-1.1) PWd 0.68 cm (0.6-1.1) EF (Teich) 66.50% FS 36.90% EDV (Teich) 119.30 mL TAPSE 2.22 (<1.7) ESV (Teich) 40.00 mL LV Diastology E Decel Time 117 (160-240 msec) E/A Ratio 1.00 MED A' 15.90 cm/s LAT A' 17.90 cm/s Aortic Valve AO Peak GR. 8.90 mmHg Mitral Valve MV A Velocity 114.0 (40-130 cm/s) E/A Ratio 1.00 Pulmonary Valve PV Peak Velocity 91.0 (50-150 cm/s) Tricuspid Valve TR P. Velocity 289.00 cm/s RAP Estimate 10.00 mmHg RVSP 43.30 mmHg Left Ventricle The left ventricle is normal size. The left ventricular systolic function is normal. The left ventricular ejection fraction is within the normal range. There is increased LV wall thickness. There is normal LV segmental wall motion. Transmitral Doppler flow pattern suggests impaired LV relaxation. LVEF is 55%. Right Ventricle Right ventricle is mildly dilated. The right ventricular systolic function is normal. Atria Left atrium is mildly dilated. Right atrium is mildly dilated. There is no Doppler evidence of interatrial shunt. Aortic Valve The aortic valve is mildly thickened. There is no aortic valvular stenosis. Trace aortic regurgitation. Mitral Valve The mitral valve is normal in structure. Mild mitral regurgitation. Tricuspid Valve Tricuspid valve is grossly normal in structure and function. Mild tricuspid regurgitation. RVSP is 20-25 mmHg. Pulmonic Valve The pulmonary valve is normal in structure. Trace pulmonic regurgitation. Great Vessels The aortic root is normal in size. IVC is normal in size and collapses >50% with inspiration. Pericardium There is no pericardial effusion. Other Information Study Quality: Fair Conclusion Normal biventricular systolic function. Mild RV dilation. Mild biatrial dilation. Mild MR, mild TR. Electronically signed by : Ami Portillo MD 04/18/2025 12:16:03
[2025-04-18 06:04] LABS: Albumin Level 3.9 g/dl (3.5-5.0); Chloride 94 mmol/L (98-107); Potassium 4.6 mmoL/L (3.5-5.1); Sodium 138 mmol/L (136-145)
[2025-04-18 06:07] LABS: Alanine Aminotransferase 14 U/L (12-78); Albumin/Globulin Ratio 1.3 (1.1-1.8); Alkaline Phosphatase 71 U/L (38-126); Anion Gap 11.6 mEq/L (5-15); Aspartate Amino Transferase 24 U/L (17-59); Bilirubin,Total 0.3 mg/dl (0.2-1.3); Blood Urea Nitrogen 41 mg/dl (9-20); Calcium 9.2 mg/dl (8.4-10.2); Carbon Dioxide 37 mmol/L (22.0-30.0); Creatinine Clearance Estimated 48 mL/min (50-200); Estimated Glomerular Filt Rate 33 ml/min (>60); GFR (African American) 40 ML/MIN (>60); Globulin 3.1 g/dL (1.3-3.2); Glucose 108 mg/dl (74-100)
[2025-04-18 06:36] LABS: POC Glucose,Bedside 101 (70-110)
[2025-04-18] MEDS: TIOTROPIUM 18MCG/PUFF INHALER 1 CAP IH (06:37)
[2025-04-18 08:00] VITALS: BP 133/74; PULSE 72; RESP 18; TEMP 36.9; O2SAT 91
[2025-04-18 08:42] LABS: Magnesium 1.8 mg/dl (1.6-2.3)
[2025-04-18] MEDS: DOXYCYCLINE HYCL 100 MG TABLET PO (08:46)
[2025-04-18] MEDS: ALLOPURINOL 300MG TABLET 300 MG PO (08:46)
[2025-04-18] MEDS: SPIRONOLACTONE 25MG TABLET 25 MG PO (08:46)
[2025-04-18] MEDS: GABAPENTIN 600MG TABLET 600 MG PO (08:46)
[2025-04-18] MEDS: TAMSULOSIN 0.4MG CAPSULE 0.4 MG PO (08:46)
[2025-04-18] MEDS: ASPIRIN 325MG TABLET 325 MG PO (08:46)
[2025-04-18] MEDS: HYDROCODONE 10MG/APAP 325MG TAB 1 TAB PO (08:46)
[2025-04-18] MEDS: FUROSEMIDE 40MG/4ML VIAL 40 MG IV (08:47)
--- NOTE | 2025-04-18 09:26 | EXP.PULM.CON ---
History of Present Illness History of present illness: Mr. Miller is a 74-year-old male greater than [id number] smoking history, COPD, small cell lung cancer, CAD s/p stent, CKD III, Type II DM currently not receiving any treatment except for ivermectin (self-medication), recently admitted to [facility] for hypoxic respiratory failure needing intubation mechanical ventilator support, bronchoscopy with BAL negative for infectious workup presented to the ER at [facility] for worsening respiratory distress and pulmonary was called for further evaluation and management [facility] Disclaimer: The information contained in this section may have been updated after the patient was seen, as this information can be updated by other users. Medical History (Updated 04/18/25 @ 11:17 by Jaime Nesbitt MD) Pneumonia Bilateral lower extremity edema Tobacco abuse counseling Pulmonary nodule Cervicogenic headache Encounter for screening for malignant neoplasm of lung Smoking greater than 30 pack years COPD (chronic obstructive pulmonary disease) with emphysema Gout Arthritis Hyperlipidemia Hypertension Skin cancer Kidney stone COPD (chronic obstructive pulmonary disease) Allergies History of cataract DDD (degenerative disc disease), cervical Chronic headaches Degenerative disc disease, cervical Neck Pain PILY (obstructive sleep apnea) Surgical History History of cataract surgery History of heart artery stent History of cardiac catheterization History of ankle surgery History of surgery History of total knee replacement Family History Other Diabetes Heart attack Hypertension Stroke Social History (Updated 04/16/25 @ 15:23 by Judy Mello, RN) Smoking Status: Former smoker tobacco type: cigarettes packs per day: 1 years smoked: 50 second hand exposure: No alcohol intake: former substance use type: denies use current occupational status: retired Travel in the last 8 weeks?: None household members: spouse housing: house current occupational exposures/hazards: No caffeine: Yes Have you lived/traveled outside [place] in past 30 days?: No Contact w/someone who lives/traveled outside [place] past 30 days?: Yes Exposure to someone with infectious disease in past 14 days?: No Do you have a fever (greater than 100.4 F or 38 C)?: No Have you tested positive for COVID-19?: No Exposed to someone with COVID-19 in past 14 days?: No Do you have a sore throat?: No Do you have a cough?: No Do you have any weakness?: No Are you experiencing any nausea/vomitting?: No Do you have any diarrhea?: No Are you experiencing any unusual bleeding?: No Do you have any muscle aches/pain?: No Do you have any abdominal pain?: No Are you experiencing loss of taste or smell?: No Review of Systems Constitutional Constitutional: Reports anorexia, Reports fatigue, Reports poor appetite and Reports lethargy Eyes Eyes: Denies eye discharge, Denies dry eyes, Denies irritation and Denies itchy eyes ENT Ears, Nose, Mouth, and Throat: Denies epistaxis, Denies facial pain, Denies lip swelling and Denies throat swelling *Cardiovascular Cardiovascular: Reports dyspnea and Reports dyspnea on exertion *Respiratory Respiratory: Denies change in phlegm color, Reports chest congestion, Reports cough, Reports dyspnea, Reports dyspnea on exertion, Reports excessive phlegm production and Denies wheezing *Gastrointestinal Gastrointestinal: Denies abdominal pain, Denies belching and Denies cramping *Musculoskeletal Musculoskeletal: Reports back pain, Reports myalgias and Reports other (No small joint swelling or Pain) Psychiatric Psychiatric: Denies homicidal ideation and Denies suicidal ideation Endocrine Endocrine: Reports fatigue and Denies heat intolerance Hematologic/Lymphatic Hematologic/Lymphatic: Denies easy bleeding and Denies lymphadenopathy Allergic/Immunologic Allergic/Immunologic: Denies itchy eyes, Denies lip swelling, Denies throat swelling and Denies wheezing Pulmonology Exam Inpatient Vital signs and Labs for Last 24 Hours: Temp Pulse Resp BP Pulse Ox O2 Del Method O2 Flow Rate 98.4 F 72 18 133/74 91 L Nasal Cannula 2.5 04/18/25 08:00 04/18/25 08:00 04/18/25 08:00 04/18/25 08:00 04/18/25 08:00 04/18/25 08:00 04/18/25 08:00 Laboratory Results - last 24 hr 04/17/25 11:39: POC Glucose 129 H 04/17/25 18:20: POC Glucose 149 H 04/17/25 21:09: POC Glucose 109 04/18/25 05:31: WBC 11.9 H, RBC 4.31 L, Hgb 11.7 L, Hct 37.7 L, MCV 87.5, MCH 27.1, MCHC 31.0 L, RDW 16.6, Plt Count 178, MPV 9.7, Neut % (Auto) 76.1, Lymph % (Auto) 15.4, [facility] % (Auto) 7.2, Eos % (Auto) 0.6, Baso % (Auto) 0.2, Neut # (Auto) 9.1 H, Lymph # (Auto) 1.8, [facility] # (Auto) 0.9, Eos # (Auto) 0.1, Baso # (Auto) 0.0, Sodium 138, Potassium 4.6, Chloride 94 L, Carbon Dioxide 37 H, Anion Gap 11.6, BUN 41 H, Creatinine 2.00 H, Estimated Creat Clear 48, Estimated GFR 33 L, Est GFR ( Amer) 40 L, Glucose 108 H D, Calcium 9.2, Magnesium 1.8, Total Bilirubin 0.3, AST 24, ALT 14, Alkaline Phosphatase 71, Total Protein 7.0, Albumin 3.9, Globulin 3.1, Albumin/Globulin Ratio 1.3 04/18/25 06:18: POC Glucose 101 I & O for Labs for Last 24 Hours: Intake & Output 04/15/25 04/16/25 04/17/25 04/18/25 23:59 23:59 23:59 23:59 Intake Total 940 / 1160 910 / 1264 354 / 354 Output Total 1745 / 2295 4425 / 4940 1440 / 1440 Balance -805 / -1135 -3515 / -3676 -1086 / -1086 Weight 235 lb 234 lb 3.2 oz 225 lb 7.999 oz Microbiology Reports for the Last 24 Hours: Microbiology 04/16/25 09:45 Blood Blood Culture - Preliminary NO GROWTH AFTER 24 HOURS 04/16/25 09:45 Blood Blood Culture - Preliminary NO GROWTH AFTER 24 HOURS Constitutional: Present moderate distress Head: Present normocephalic and atraumatic ENT: Present normal exam, normal oropharynx and mucous membranes moist Neck: Present normal inspection and full ROM Respiratory: Present prolonged expiratory phase, rhonchi, wheezes, diminished air movement and able to speak in complete sentences Cardiac: Present S1/S2, Tachycardia and radial pulses present GI: Present soft and distention; Absent tenderness or guarding Skin: Present intact; Absent cyanosis or jaundice Neuro: Present alert, awake and oriented x 3 Extremities: Present normal inspection; Absent clubbing or cyanosis Psychiatric: Present normal affect and cooperative Meds Home Medications and Allergies Home Medications ?Medication ?Instructions ?Recorded ?Confirmed ?Type blood-glucose meter 08/06/22 04/17/25 History lancets 21 gauge (Color Lancets) 08/06/22 04/17/25 History aspirin 325 mg tablet 325 mg PO DAILY heart health #90 11/06/22 04/16/25 Rx tabs blood sugar diagnostic (Blood #100 ea 11/06/22 04/17/25 Rx Glucose Test strips) gabapentin 600 mg tablet 600 mg PO QID Pain #120 tabs 08/16/24 04/16/25 Rx pantoprazole 40 mg tablet,delayed 40 mg PO QAM #90 tabs 08/16/24 04/16/25 Rx release atorvastatin 20 mg tablet 20 mg PO DAILY #90 tabs 08/17/24 04/16/25 Rx linagliptin 5 mg tablet (Tradjenta) 5 mg PO DAILY #90 tabs 11/16/24 04/16/25 Rx nicotine (polacrilex) 2 mg gum 2 mg buccal Q2H PRN nicotine 12/03/24 04/16/25 Rx cravings #100 ea hydrocodone 10 mg-acetaminophen 1 tab PO Q6H PRN pain #120 tabs 04/05/25 04/16/25 Rx 325 mg tablet tiotropium bromide 18 mcg capsule 1 cap inhalation DAILY #30 caps 04/13/25 04/16/25 Rx with inhalation device (Spiriva with HandiHaler) albuterol sulfate 90 mcg/actuation 90 mcg inhalation Q4HP PRN 04/16/25 04/16/25 History aerosol inhaler Shortness of air allopurinol 300 mg tablet 300 mg PO DAILY 04/16/25 04/16/25 History amitriptyline 25 mg tablet 25 mg PO HS Migraines 04/16/25 04/16/25 History amlodipine 10 mg tablet 10 mg PO DAILY 04/16/25 04/16/25 History dicyclomine 10 mg capsule 10 mg PO BID 04/16/25 04/16/25 History nitroglycerin 0.4 mg sublingual 0.4 mg sublingual Q5MINP PRN Chest 04/16/25 04/16/25 History tablet pain tadalafil 5 mg tablet 5 mg PO DAILY 04/16/25 04/16/25 History tamsulosin 0.4 mg capsule 0.4 mg PO DAILY 04/16/25 04/16/25 History New Prescriptions to Start Prescriptions: Allergies Allergy/AdvReac Type Severity Reaction Status Date / Time fluticasone furoate (From Allergy Severe swollen Verified 04/08/25 10:07 Breo Ellipta) throat vilanterol (From Breo Allergy Severe swollen Verified 04/08/25 10:07 Ellipta) throat Results Laboratory Findings 04/18/25 05:31 04/18/25 05:31 Abnormal lab findings: Abnormal Labs 04/16/25 04/16/25 04/16/25 09:45 16:39 19:52 WBC 10.9 H RBC 4.16 L Hgb 11.6 L Hct 37.1 L MCH MCHC 31.3 L Neut % (Auto) Lymph % (Auto) Eos % (Auto) Neut # (Auto) 7.9 H VBG pCO2 53.1 H VBG pO2 53.7 H VBG Total CO2 28.4 H VBG O2 Saturation 87.7 H Potassium 5.2 H Chloride Carbon Dioxide Anion Gap BUN 29 H Creatinine 2.30 H Estimated GFR 28 L Est GFR ( Amer) 34 L Glucose 103 H POC Glucose 175 H 234 H NT-Pro-B Natriuret Pep 322 H 04/17/25 04/17/25 04/17/25 05:54 06:40 11:39 WBC 13.7 H D RBC 4.12 L Hgb 11.1 L Hct 36.4 L MCH 26.9 L MCHC 30.5 L Neut % (Auto) 87.2 H Lymph % (Auto) 8.3 L Eos % (Auto) 0.0 L Neut # (Auto) 12.0 H VBG pCO2 VBG pO2 VBG Total CO2 VBG O2 Saturation Potassium 5.2 H Chloride 96 L Carbon Dioxide Anion Gap 16.2 H BUN 38 H D Creatinine 2.00 H Estimated GFR 33 L Est GFR ( Amer) 40 L Glucose 140 H D POC Glucose 145 H 129 H NT-Pro-B Natriuret Pep 04/17/25 04/18/25 18:20 05:31 WBC 11.9 H RBC 4.31 L Hgb 11.7 L Hct 37.7 L MCH MCHC 31.0 L Neut % (Auto) Lymph % (Auto) Eos % (Auto) Neut # (Auto) 9.1 H VBG pCO2 VBG pO2 VBG Total CO2 VBG O2 Saturation Potassium Chloride 94 L Carbon Dioxide 37 H Anion Gap BUN 41 H Creatinine 2.00 H Estimated GFR 33 L Est GFR ( Amer) 40 L Glucose 108 H D POC Glucose 149 H NT-Pro-B Natriuret Pep Assessment and Plan *Assessment and plan (1) Respiratory failure: Status: Acute Category: Medical Code(s): J96.90 - Respiratory failure, unspecified, unspecified whether with hypoxia or hypercapnia (2) Small cell lung cancer: Status: Acute Category: Medical Code(s): C34.90 - Malignant neoplasm of unspecified part of unspecified bronchus or lung (3) Pneumonia: Status: Acute Category: Medical Code(s): J18.9 - Pneumonia, unspecified organism Plan Mr. Miller is a 74-year-old male greater than [id number] smoking history, COPD, small cell lung cancer, CAD s/p stent, CKD III, Type II DM currently not receiving any treatment except for ivermectin (self-medication), recently admitted to [facility] for hypoxic respiratory failure needing intubation mechanical ventilator support, bronchoscopy with BAL negative for infectious workup presented to the ER at [facility] for worsening respiratory distress and pulmonary was called for further evaluation and management Afebrile. Hemodynamically stable. Mild neutrophilic predominant leukocytosis. Blood gas upon admission mild hypercarbic respiratory failure with a pH of 7.31 and pCO2 57.1. Comprehensive respiratory viral PCR panel negative. CTA upon admission no evidence of pulmonary embolism. Worsening mediastinal hilar lymphadenopathy and right hilar mass with bronchial narrowing on concerning postobstructive pneumonia BG NG 24 hrs. Plan: Continue oxygen supplementation to maintain O2 saturation goal of 90% and above Antibiotics can be weaned to Augmentin TID to complete a total of 7-day course Intensive spirometry and flutter valve Trelegy 100 inhaler along with DuoNebs 4 times daily as needed Stat outpatient oncology/radiation oncology follow-up. Patient agreeable to undergo treatment for his small cell lung cancer at this point of time. # Thank you for involving pulmonary in this patient care. Will follow the patient in pulmonary clinic 5 to 7 days postdischarge
--- NOTE | 2025-04-18 10:34 | EXP.DC.SUM ---
General Admission date:: 04/16/25 HPI HPI HPI: Last Miller is a 74-year-old male with a medical history is significant for recently diagnosed small cell lung cancer (has declined treatment for now), COPD on room air, hypertension, CAD with stent, CKD stage III, type 2 diabetes, GERD who presents with 2 days of increased somnolence and 1 day of shakes. Per patient and they state patient went to sleep yesterday afternoon and slept continuously for 16 hours. Patient states upon waking this morning, he felt like he was shaking. Pulse ox at home noted to be in the 70s. Patient was recently admitted at for respiratory failure from pneumonia requiring intubation. He was discharged on 3 L nasal cannula. They state antibiotics were not continued at that time. Workup in the ED significant for WBC 10.9, creatinine 2.3 (baseline 1.7) BNP 322, negative respiratory panel. CXR shows resolving multifocal pneumonia but also seems to show mild pulmonary edema. He was given DuoNebs, Solu-Medrol, Zosyn, vancomycin in the ED. On my evaluation of patient, he was resting in bed comfortably without distress. He states he feels much better, breathing better. He did have diffuse crackles bilaterally. Case discussed with ED provider and decision made to admit patient for acute on chronic hypoxic respiratory failure from suspected pneumonia and/or heart failure. Hospital Course Hospital Course Hospital Course: Last Miller is a 74-year-old male with a medical history is significant for recently diagnosed small cell lung cancer (has declined treatment for now), COPD on room air, hypertension, CAD with stent, CKD stage III, type 2 diabetes, GERD who presents with 2 days of increased somnolence and 1 day of shakes. Per patient and they state patient went to sleep yesterday afternoon and slept continuously for 16 hours. Patient states upon waking this morning, he felt like he was shaking. Pulse ox at home noted to be in the 70s. Patient was recently admitted at for respiratory failure from pneumonia requiring intubation. He was discharged on 3 L nasal cannula. They state antibiotics were not continued at that time. Workup in the ED significant for WBC 10.9, creatinine 2.3 (baseline 1.7) BNP 322, negative respiratory panel. VBG with compensated chronic hypercapnia. Temperature 101.4. CXR shows resolving multifocal pneumonia but also seems to show mild pulmonary edema. He was given DuoNebs, Solu-Medrol, Zosyn, vancomycin in the ED. On my evaluation of patient, he was resting in bed comfortably without distress. He states he feels much better, breathing better. He did have diffuse crackles bilaterally. Case discussed with ED provider and decision made to admit patient for acute on chronic hypoxic respiratory failure from suspected pneumonia and/or heart failure. #Acute on chronic hypoxic respiratory failure #Postobstructive pneumonia #Sepsis #HFpEF exacerbation ? Presented with hypersomnolence, hypoxia on 3 L at home. Initial WBC 10.9, temperature 101.4, with tachycardia. Denies chest pain, shortness of breath, cough. ? CTA chest showed right postobstructive middle lobe pneumonia, CXR showed pulmonary edema on chronic interstitial changes. BNP 322. ? Clinically improved significantly after IV Lasix and spironolactone diuresis, net -6 L, in addition to cefepime and doxycycline. Cardiology assisted with care. ? Pulmonology consulted, recommended Augmentin for total 7 days, and Trelegy 100, DuoNebs every 6 hours as needed. ? ECHO reveals normal biventricular systolic function, with increased LV wall thickness. ? Also discharged with Lasix 40 mg, spironolactone 25 mg. ? Will follow-up with cardiology within 2 weeks. #Small cell lung cancer ? Revealed in biopsy results at . Offered treatment there, but patient declined. ? CTA chest shows increased size of right hilar mass. Patient seems to be more motivated for getting treatment after these findings. ? Establish care with radiation oncology at [place] with Dr. Bryan. Being evaluated for radiation therapy. Will continue follow-up there, in addition to Dr. Mims here. #COPD ? Currently stable. ? Pulmonology recommended switching from Spiriva to Trelegy 100. #Hypertension ?Hold home amlodipine as blood pressures are stable without it. Advised to follow-up with cardiology. #BETTY on CKD stage III ? Creatinine 2.3, baseline around 1.7. Creatinine improved to 2.0 after diuresis. #Type 2 diabetes ? Hemoglobin A1c 5.8%. Continue home regimen. #GERD ? Continue home PPI. Exam Data for Last 24 hours Vital signs and Labs for Last 24 Hours: Temp Pulse Resp BP Pulse Ox O2 Del Method O2 Flow Rate 98.4 F 72 18 133/74 91 L Nasal Cannula 2.5 04/18/25 08:00 04/18/25 08:00 04/18/25 08:00 04/18/25 08:00 04/18/25 08:00 04/18/25 09:00 04/18/25 09:00 Laboratory Results - last 24 hr 04/17/25 11:39: POC Glucose 129 H 04/17/25 18:20: POC Glucose 149 H 04/17/25 21:09: POC Glucose 109 04/18/25 05:31: WBC 11.9 H, RBC 4.31 L, Hgb 11.7 L, Hct 37.7 L, MCV 87.5, MCH 27.1, MCHC 31.0 L, RDW 16.6, Plt Count 178, MPV 9.7, Neut % (Auto) 76.1, Lymph % (Auto) 15.4, [place] % (Auto) 7.2, Eos % (Auto) 0.6, Baso % (Auto) 0.2, Neut # (Auto) 9.1 H, Lymph # (Auto) 1.8, [place] # (Auto) 0.9, Eos # (Auto) 0.1, Baso # (Auto) 0.0, Sodium 138, Potassium 4.6, Chloride 94 L, Carbon Dioxide 37 H, Anion Gap 11.6, BUN 41 H, Creatinine 2.00 H, Estimated Creat Clear 48, Estimated GFR 33 L, Est GFR ( Amer) 40 L, Glucose 108 H D, Calcium 9.2, Magnesium 1.8, Total Bilirubin 0.3, AST 24, ALT 14, Alkaline Phosphatase 71, Total Protein 7.0, Albumin 3.9, Globulin 3.1, Albumin/Globulin Ratio 1.3 04/18/25 06:18: POC Glucose 101 I & O for Last 24 hours: Intake & Output 04/15/25 04/16/25 04/17/25 04/18/25 23:59 23:59 23:59 23:59 Intake Total 940 / 1160 910 / 1264 474 / 474 Output Total 1745 / 2295 4425 / 4940 1440 / 1440 Balance -805 / -1135 -3515 / -3676 -966 / -966 Weight 106.594 kg 106.231 kg 102.285 kg Microbiology Reports for the Last 24 Hours: Microbiology 04/16/25 09:45 Blood Blood Culture - Preliminary NO GROWTH AFTER 48 HOURS 04/16/25 09:45 Blood Blood Culture - Preliminary NO GROWTH AFTER 48 HOURS Constitutional Constitutional: no acute distress *Routine HEENT Exam Head: Present normocephalic Eye: Present EOMI and PERRL ENT: Present mucous membranes moist *Routine Neck Exam Neck: Present supple; Absent lymphadenopathy *Routine Respiratory Exam Respiratory: Present CTA bilaterally *Routine Cardiovascular Exam Cardiovascular: Present RRR *Routine Abdominal Exam Abdominal: Present soft and normoactive bowel sounds; Absent tenderness *Routine Extremities Exam Extremities: Absent cyanosis, clubbing or edema *Routine Skin Exam Skin: Present warm; Absent rash *Routine Neurological Exam Neurological: Present alert and oriented X3 Results Data Completed and Pending Labs on day of discharge: Labs from last 24 hours 04/18/25 04/18/25 04/17/25 06:18 05:31 21:09 WBC 11.9 H RBC 4.31 L Hgb 11.7 L Hct 37.7 L MCV 87.5 MCH 27.1 MCHC 31.0 L RDW 16.6 Plt Count 178 MPV 9.7 Neut % (Auto) 76.1 Lymph % (Auto) 15.4 [place] % (Auto) 7.2 Eos % (Auto) 0.6 Baso % (Auto) 0.2 Neut # (Auto) 9.1 H Lymph # (Auto) 1.8 [place] # (Auto) 0.9 Eos # (Auto) 0.1 Baso # (Auto) 0.0 Sodium 138 Potassium 4.6 Chloride 94 L Carbon Dioxide 37 H Anion Gap 11.6 BUN 41 H Creatinine 2.00 H Estimated Creat Clear 48 Estimated GFR 33 L Est GFR ( Amer) 40 L Glucose 108 H D POC Glucose 101 109 Calcium 9.2 Magnesium 1.8 Total Bilirubin 0.3 AST 24 ALT 14 Alkaline Phosphatase 71 Total Protein 7.0 Albumin 3.9 Globulin 3.1 Albumin/Globulin Ratio 1.3 04/17/25 04/17/25 18:20 11:39 WBC RBC Hgb Hct MCV MCH MCHC RDW Plt Count MPV Neut % (Auto) Lymph % (Auto) [place] % (Auto) Eos % (Auto) Baso % (Auto) Neut # (Auto) Lymph # (Auto) [place] # (Auto) Eos # (Auto) Baso # (Auto) Sodium Potassium Chloride Carbon Dioxide Anion Gap BUN Creatinine Estimated Creat Clear Estimated GFR Est GFR ( Amer) Glucose POC Glucose 149 H 129 H Calcium Magnesium Total Bilirubin AST ALT Alkaline Phosphatase Total Protein Albumin Globulin Albumin/Globulin Ratio Preliminary micro results at discharge 04/16/25 09:45 Blood Culture - Preliminary Blood NO GROWTH AFTER 48 HOURS 04/16/25 09:45 Blood Culture - Preliminary Blood NO GROWTH AFTER 48 HOURS DS: Diagnosis Discharge Diagnosis (1) Respiratory failure: Status: Acute Code(s): J96.90 - Respiratory failure, unspecified, unspecified whether with hypoxia or hypercapnia (2) Sepsis: Status: Acute Code(s): A41.9 - Sepsis, unspecified organism (3) Acute hypercapnic respiratory failure: Status: Acute Code(s): J96.02 - Acute respiratory failure with hypercapnia (4) Small cell lung cancer: Status: Acute Code(s): C34.90 - Malignant neoplasm of unspecified part of unspecified bronchus or lung Meds Home Medications and Allergies Home Medications ?Medication ?Instructions ?Recorded ?Confirmed ?Type blood-glucose meter 08/06/22 04/17/25 History lancets 21 gauge (Color Lancets) 08/06/22 04/17/25 History aspirin 325 mg tablet 325 mg PO DAILY heart health #90 11/06/22 04/16/25 Rx tabs blood sugar diagnostic (Blood #100 ea 11/06/22 04/17/25 Rx Glucose Test strips) gabapentin 600 mg tablet 600 mg PO QID Pain #120 tabs 08/16/24 04/16/25 Rx pantoprazole 40 mg tablet,delayed 40 mg PO QAM #90 tabs 08/16/24 04/16/25 Rx release atorvastatin 20 mg tablet 20 mg PO DAILY #90 tabs 08/17/24 04/16/25 Rx linagliptin 5 mg tablet (Tradjenta) 5 mg PO DAILY #90 tabs 11/16/24 04/16/25 Rx nicotine (polacrilex) 2 mg gum 2 mg buccal Q2H PRN nicotine 12/03/24 04/16/25 Rx cravings #100 ea hydrocodone 10 mg-acetaminophen 1 tab PO Q6H PRN pain #120 tabs 04/05/25 04/16/25 Rx 325 mg tablet albuterol sulfate 90 mcg/actuation 90 mcg inhalation Q4HP PRN 04/16/25 04/16/25 History aerosol inhaler Shortness of air allopurinol 300 mg tablet 300 mg PO DAILY 04/16/25 04/16/25 History amitriptyline 25 mg tablet 25 mg PO HS Migraines 04/16/25 04/16/25 History amlodipine 10 mg tablet 10 mg PO DAILY 04/16/25 04/16/25 History Held on 04/18/25. Instructions: Resume on 04/25/25. Your blood pressures were normal without this medication. Please follow-up with PCP/cardiology to discuss restarting his medication. dicyclomine 10 mg capsule 10 mg PO BID 04/16/25 04/16/25 History nitroglycerin 0.4 mg sublingual 0.4 mg sublingual Q5MINP PRN Chest 04/16/25 04/16/25 History tablet pain tadalafil 5 mg tablet 5 mg PO DAILY 04/16/25 04/16/25 History tamsulosin 0.4 mg capsule 0.4 mg PO DAILY 04/16/25 04/16/25 History amoxicillin 500 mg-potassium 1 tab PO TID 5 days #15 tabs 04/18/25 Rx clavulanate 125 mg tablet (Augmentin) fluticasone fur. 100 mcg-umeclid 1 inh inhalation DAILY #60 ea 04/18/25 Rx 62.5 mcg-vilant 25 mcg inhalat.powder (Trelegy Ellipta) furosemide 40 mg tablet (Lasix) 40 mg PO DAILY 30 days #30 tabs 04/18/25 Rx ipratropium 0.5 mg-albuterol 3 mg 3 ml inhalation Q6H PRN wheezing 04/18/25 Rx (2.5 mg base)/3 mL nebulization #180 mL soln spironolactone 25 mg tablet 25 mg PO DAILY 30 days #30 tabs 04/18/25 Rx New Prescriptions to Start Prescriptions: amoxicillin-pot clavulanate [Augmentin] Cornelio,Malik [id number] [Trelegy Ellipta] Malik Grimes furosemide [Lasix] Cornelio,Malik ipratropium-albuterol Cornelio,Malik spironolactone Malik Grimes Allergies Allergy/AdvReac Type Severity Reaction Status Date / Time fluticasone furoate (From Allergy Severe swollen Verified 04/08/25 10:07 Breo Ellipta) throat vilanterol (From Breo Allergy Severe swollen Verified 04/08/25 10:07 Ellipta) throat Discharge Plan Disposition Patient Disposition: Home, Self-Care Condition: Fair Discharge Order Discharge Orders: Discharge Order (Routine); Ordered 04/18/25 Ordered By: Malik Grimes Follow up Plan Follow up with: Braulio Benítez PA [Physician Environmental Health Safety Manager, Cardiology] - 05/02/25 11:15 am Oleksandr Mims MD [Staff Physician, Oncology] - 04/27/25 10:30 am Jaime Nesbitt MD [Physician, Pulmonology] - 05/04/25 1:00 pm Levar Davison MD [Primary Care Provider, Family Practice] - 04/28/25 11:00 am Prescriptions/Medication Reconciliation: New spironolactone 25 mg Tablet 25 mg PO DAILY 30 Days Qty: 30 0RF furosemide [Lasix] 40 mg tablet 40 mg PO DAILY 30 Days Qty: 30 0RF amoxicillin-pot clavulanate [Augmentin] 500-125 mg tablet 1 tab PO TID 5 Days Qty: 15 0RF Trelegy Ellipta 100-62.5-25 mcg blister with device 1 inh inhalation DAILY Qty: 60 0RF ipratropium-albuterol 0.5 mg-3 mg(2.5 mg base)/3 mL solution for nebulization 3 ml inhalation Q6H PRN (Reason: wheezing) Qty: 180 0RF Continued Tradjenta 5 mg tablet 5 mg PO DAILY Qty: 90 3RF aspirin 325 mg tablet 325 mg PO DAILY Qty: 90 3RF (DME) Blood Glucose Test Strip See Rx Instructions MISCELLANEOUS Qty: 100 12RF Rx Instructions: As directed test morning and afternoon gabapentin 600 mg tablet 600 mg PO QID Qty: 120 5RF pantoprazole 40 mg tablet,delayed release (DR/EC) 40 mg PO QAM Qty: 90 3RF nicotine (polacrilex) 2 mg gum 2 mg buccal Q2H PRN (Reason: nicotine cravings) Qty: 100 2RF atorvastatin 20 mg tablet 20 mg PO DAILY Qty: 90 3RF hydrocodone-acetaminophen 10-325 mg tablet 1 tab PO Q6H PRN (Reason: pain) Qty: 120 0RF (DME) blood-glucose meter Misc See Rx Instructions MISCELLANEOUS Rx Instructions: As directed (DME) lancets [Color Lancets] 21 gauge misc See Rx Instructions MISCELLANEOUS Rx Instructions: As directed amitriptyline 25 mg tablet 25 mg PO HS tamsulosin 0.4 mg capsule 0.4 mg PO DAILY nitroglycerin 0.4 mg tablet, sublingual 0.4 mg sublingual Q5MINP PRN (Reason: Chest pain) Rx Instructions: ONE TABLET UNDER TONGUE NEEDED FOR CHEST PAIN NEEDED CHEST PAINS FOR 3 DOSES THEN CALL 911 allopurinol 300 mg tablet 300 mg PO DAILY albuterol sulfate 90 mcg/actuation HFA aerosol inhaler 90 mcg inhalation Q4HP PRN (Reason: Shortness of air) Rx Instructions: INHALE 2 PUFFS BY MOUTH EVERY 4 TO 6 HOURS NEEDED FOR SHORTNESS OF BREATH dicyclomine 10 mg capsule 10 mg PO BID tadalafil 5 mg tablet 5 mg PO DAILY Held amlodipine 10 mg tablet 10 mg PO DAILY Hold Instructions: Resume on 04/25/25. Your blood pressures were normal without this medication. Please follow-up with PCP/cardiology to discuss restarting his medication. Discontinued tiotropium bromide [Spiriva with HandiHaler] 18 mcg capsule, w/inhalation device 1 cap inhalation DAILY Qty: 30 2RF Rx Instructions: puncture 1 cap using device; one dose = 2 inhalations Problem Reconciliation Problems Reviewed?: Yes Patient Discharge Instructions Patient Instructions: DI for Sepsis -- Adult, Respiratory Failure, Stop Light COPD, Stop Light Infection Print Language: Latvian Providers Primary Care Provider: Levar Davison Admit Provider: Malik Grimes Attending Provider: Malik Grimes
--- NOTE | 2025-04-18 11:40 | P.CONCA_ITS ---
History of Present Illness History of Present Illness Consult date: 04/18/25 Requesting physician: Malik Grimes Consult reason: congestive heart failure and shortness of breath Chief complaint: SOA Additional Medical History:: 1. Coronary artery disease with prior stenting in 2011 A. Cardiac cath, May/2023, medical management 2. Hyperlipidemia 3. Chronic kidney disease followed by nephrology 4. COPD 5. Diabetes mellitus type 2 6. Small cell lung carcinoma that appears to be stage IIIA (cT1b, pN2, cM0) -patient reports recent brain MRI without evidence of metastasis -Has started Ivermectin on his own History of present illness: Last Miller is a 74-year-old male with a medical history is significant for recently diagnosed small cell lung cancer (has declined treatment for now), COPD on room air, hypertension, CAD with stent, CKD stage III, type 2 diabetes, GERD who presents with 2 days of increased somnolence and 1 day of shakes. Per p atient and they state patient went to sleep yesterday afternoon and slept continuously for 16 hours. Patient states upon waking this morning, he felt like he was shaking. Pulse ox at home noted to be in the 70s. Patient was recently admitted at for respiratory failure from pneumonia requiring intubation. He was discharged on 3 L nasal cannula. They state antibiotics were not continued at that time. Workup in the ED significant for WBC 10.9, creatinine 2.3 (baseline 1.7) BNP 322, negative respiratory panel. CXR shows resolving multifocal pneumonia but also seems to show mild pulmonary edema. He was given DuoNebs, Solu-Medrol, Zosyn, vancomycin in the ED. On my evaluation of patient, he was resting in bed comfortably without distress. He states he feels much better, breathing better. He did have diffuse crackles bilaterally. Case discussed with ED provider and decision made to admit patient for acute on chronic hypoxic respiratory failure from suspected pneumonia and/or heart failure. The above per Dr. Grimes Events as noted above confirmed with the patient and his . Cardiology consulted for possible new onset of heart failure due to some improvement in shortness of breath with IV Lasix in combination with antibiotics and pulmonary therapy. Troponins this admission were normal. EKG is sinus rhythm at 103 bpm with right bundle branch block. Preliminary echocardiogram this morning shows preserved ejection fraction without significant valve disease. Clinically patient is feeling better. [facility] Disclaimer: The information contained in this section may have been updated after the patient was seen, as this information can be updated by other users. Medical History (Updated 04/18/25 @ 11:55 by PANKAJ Barr) Pneumonia Bilateral lower extremity edema Tobacco abuse counseling Pulmonary nodule Cervicogenic headache Encounter for screening for malignant neoplasm of lung Smoking greater than 30 pack years COPD (chronic obstructive pulmonary disease) with emphysema Gout Arthritis Hyperlipidemia Hypertension Skin cancer Kidney stone COPD (chronic obstructive pulmonary disease) Allergies History of cataract DDD (degenerative disc disease), cervical Chronic headaches Degenerative disc disease, cervical Neck Pain PILY (obstructive sleep apnea) Surgical History History of cataract surgery History of heart artery stent History of cardiac catheterization History of ankle surgery History of surgery History of total knee replacement Family History Other Diabetes Heart attack Hypertension Stroke Social History (Updated 04/16/25 @ 15:23 by Judy Mello RN) Smoking Status: Former smoker tobacco type: cigarettes packs per day: 1 years smoked: 50 second hand exposure: No alcohol intake: former substance use type: denies use current occupational status: retired Travel in the last 8 weeks?: None household members: spouse housing: house current occupational exposures/hazards: No caffeine: Yes Have you lived/traveled outside [place] in past 30 days?: No Contact w/someone who lives/traveled outside US past 30 days?: Yes Exposure to someone with infectious disease in past 14 days?: No Do you have a fever (greater than 100.4 F or 38 C)?: No Have you tested positive for COVID-19?: No Exposed to someone with COVID-19 in past 14 days?: No Do you have a sore throat?: No Do you have a cough?: No Do you have any weakness?: No Are you experiencing any nausea/vomitting?: No Do you have any diarrhea?: No Are you experiencing any unusual bleeding?: No Do you have any muscle aches/pain?: No Do you have any abdominal pain?: No Are you experiencing loss of taste or smell?: No Review of Systems Review of Systems Review of systems:: pertinent systems reviewed and negative unless documented below *Cardiovascular Cardiovascular: Denies chest pain, Reports dyspnea and Reports dyspnea on exertion *Respiratory Respiratory: Reports cough, Reports dyspnea and Reports dyspnea on exertion Exam Data for Last 24 hours Vital signs and Labs for Last 24 Hours: Temp Pulse Resp BP Pulse Ox O2 Del Method O2 Flow Rate 98.4 F 72 18 133/74 91 L Nasal Cannula 2.5 04/18/25 08:00 04/18/25 08:00 04/18/25 08:00 04/18/25 08:00 04/18/25 08:00 04/18/25 09:00 04/18/25 09:00 Laboratory Results - last 24 hr 04/17/25 11:39: POC Glucose 129 H 04/17/25 18:20: POC Glucose 149 H 04/17/25 21:09: POC Glucose 109 04/18/25 05:31: WBC 11.9 H, RBC 4.31 L, Hgb 11.7 L, Hct 37.7 L, MCV 87.5, MCH 27.1, MCHC 31.0 L, RDW 16.6, Plt Count 178, MPV 9.7, Neut % (Auto) 76.1, Lymph % (Auto) 15.4, [place] % (Auto) 7.2, Eos % (Auto) 0.6, Baso % (Auto) 0.2, Neut # (Auto) 9.1 H, Lymph # (Auto) 1.8, [place] # (Auto) 0.9, Eos # (Auto) 0.1, Baso # (Auto) 0.0, Sodium 138, Potassium 4.6, Chloride 94 L, Carbon Dioxide 37 H, Anion Gap 11.6, BUN 41 H, Creatinine 2.00 H, Estimated Creat Clear 48, Estimated GFR 33 L, Est GFR ( Amer) 40 L, Glucose 108 H D, Calcium 9.2, Magnesium 1.8, Total Bilirubin 0.3, AST 24, ALT 14, Alkaline Phosphatase 71, Total Protein 7.0, Albumin 3.9, Globulin 3.1, Albumin/Globulin Ratio 1.3 04/18/25 06:18: POC Glucose 101 I & O for Last 24 hours: Intake & Output 04/15/25 04/16/25 04/17/25 04/18/25 11:59 11:59 11:59 11:59 Intake Total 1370 / 1370 954 / 954 Output Total 4070 / 4070 3990 / 3990 Balance -2700 / -2700 -3036 / -3036 Weight 235 lb 234 lb 3.2 oz 225 lb 7.999 oz Microbiology Reports for the Last 24 Hours: Microbiology 04/16/25 09:45 Blood Blood Culture - Preliminary NO GROWTH AFTER 48 HOURS 04/16/25 09:45 Blood Blood Culture - Preliminary NO GROWTH AFTER 48 HOURS Constitutional Constitutional: no acute distress *Routine Respiratory Exam Respiratory: Present decreased breath sounds; Absent rales or rhonchi *Routine Cardiovascular Exam Cardiovascular: Present RRR; Absent murmur, gallop or rubs Meds Home Medications and Allergies Home Medications ?Medication ?Instructions ?Recorded ?Confirmed ?Type blood-glucose meter 08/06/22 04/17/25 History lancets 21 gauge (Color Lancets) 08/06/22 04/17/25 Hi story aspirin 325 mg tablet 325 mg PO DAILY heart health #90 11/06/22 04/16/25 Rx tabs blood sugar diagnostic (Blood #100 ea 11/06/22 5 Rx Glucose Test strips) gabapentin 600 mg tablet 600 mg PO QID Pain #120 tabs 08/16/24 04/16/25 Rx pantoprazole 40 mg tablet,delayed 40 mg PO QAM #90 tab s 08/16/24 04/16/25 Rx release atorvastatin 20 mg tablet 20 mg PO DAILY #90 tabs 07/2804/16/25 Rx linagliptin 5 mg tablet (Tradjenta) 5 mg PO DAILY #90 tabs 11/16/24 04/16/25 Rx nicotine (polacrilex) 2 mg gum 2 mg buccal Q2H PRN keenan otine 12/03/24 04/16/25 Rx cravings #100 ea hydrocodone 10 mg-acetaminophen 1 tab PO Q6H PRN pain #120 tabs 04/05/25 04/16/25 Rx 325 mg tablet tiotropium bromide 18 mcg capsule 1 cap inhalation MAGED LY #30 caps 04/13/25 04/16/25 Rx with inhalation device (Spiriva with HandiHaler) albuterol sulfate 90 mcg/actuation 90 mcg inhalation Q 4HP PRN 04/16/25 04/16/25 History aerosol inhaler Shortness of air allopurinol 300 mg tablet 300 mg PO DAILY 04/16/25 History amitriptyline 25 mg tablet 25 mg PO HS Migraines 04/1604/16/25 History amlodipine 10 mg tablet 10 mg PO DAILY 04/16/25/11/20 History dicyclomine 10 mg capsule 10 mg PO BID 04/16/25 History nitroglycerin 0.4 mg sublingual 0.4 mg sublingual Q5MI LOFTSMAN/WOMAN PRN Chest 04/16/25 04/16/25 History tablet pain tadalafil 5 mg tablet 5 mg PO DAILY 04/16/2504/16 History tamsulosin 0.4 mg capsule 0.4 mg PO DAILY 04/16/25 History New Prescriptions to Start Prescriptions: Allergies Allergy/AdvReac Type Severity Reaction Status Date / Time fluticasone furoate (From Allergy Severe swollen Verified 04/08/25 10:07 Breo Ellipta) throat vilanterol (From Breo Allergy Severe swollen Verified 04/08/25 10:07 Ellipta) throat Assessment and Plan *Assessment and plan (1) Pneumonia: Status: Acute Qualifiers: Pneumonia type: due to unspecified organism Laterality: bilateral Lung location: unspecified part of lung Qualified Code(s): J18.9 - Pneumonia, unspecified organism Category: Medical Code(s): J18.9 - Pneumonia, unspecified organism (2) Respiratory failure: Status: Acute Qualifiers: Chronicity: acute on chronic Respiratory failure complication: hypoxia and hypercapnia Qualified Code(s): J96.21 - Acute and chronic respiratory failure with hypoxia; J96.22 - Acute and chronic respiratory failure with hypercapnia Category: Medical Code(s): J96.90 - Respiratory failure, unspecified, unspecified whether with hypoxia or hypercapnia (3) Acute hypercapnic respiratory failure: Status: Acute Category: Medical Code(s): J96.02 - Acute respiratory failure with hypercapnia (4) Small cell lung cancer: Status: Acute Qualifiers: Laterality: right Lung location: hilum of lung Qualified Code(s): C34.01 - Malignant neoplasm of right main bronchus Category: Medical Code(s): C34.90 - Malignant neoplasm of unspecified part of unspecified bronchus or lung (5) CKD (chronic kidney disease) stage 3, GFR 30-59 ml/min: Status: Chronic Qualifiers: Chronic kidney disease stage 3 subtype: stage 3b (GFR 30-44) Qualified Code(s): N18.32 - Chronic kidney disease, stage 3b Category: Medical Code(s): N18.30 - Chronic kidney disease, stage 3 unspecified (6) COPD (chronic obstructive pulmonary disease) with emphysema: Status: Chronic Qualifiers: Emphysema type: unspecified Qualified Code(s): J43.9 - Emphysema, unspecified Category: Medical Code(s): J43.9 - Emphysema, unspecified (7) CAD (coronary artery disease): Status: Chronic Qualifiers: Coronary Disease-Associated Artery/Lesion type: [place] artery [place] vs. transplanted heart: [place] heart Associated angina: without angina Qual ified Code(s): I25.10 - Atherosclerotic heart disease of [place] coronary artery without angina pectoris Category: Medical Code(s): I25.10 - Atherosclerotic heart disease of [place] coronary artery without angina pectoris (8) Stented coronary artery: Status: Chronic Category: Surgical Code(s): Z95.5 - Presence of coronary angioplasty implant and graft (9) HTN (hypertension): Status: Chronic Qualifiers: Hypertension type: essential hypertension Qualified Code(s): I10 - Essential (primary) hypertension Category: Medical Code(s): I10 - Essential (primary) hypertension (10) HLD (hyperlipidemia): Status: Chronic Qualifiers: Hyperlipidemia type: other hyperlipidemia Qualified Code(s): E78.49 - Other hyperlipidemia Category: Medical Code(s): E78.5 - Hyperlipidemia, unspecified (11) Chronic bundle branch block: Status: Acute Category: Medical Code(s): I45.4 - Nonspecific intraventricular block Plan 1. Acute on chronic hypercapnic and hypoxic respiratory failure secondary to pneumonia -Antibiotics including doxycycline and cefepime -Pulmonary consult 2. COPD with Small cell lung cancer with postobstructive pneumonia in the right middle lobe -Patient on ivermectin therapy at home -Patient now interested in pursuing oncology/radiation oncology treatment 3. Concern for CHF with BNP of 322 with chest x-ray evidence of mild increased pulmonary vascularity -Resolved quickly with IV Lasix -Echo EF this admission normal 4. CAD with prior coronary stenting -Normal troponins this admission with no acute EKG changes -On aspirin and statin 5. Hypertension -On Lasix and spironolactone 6. Hyperlipidemia -On statin therapy 7. Chronic right bundle branch block 8. Type 2 diabetes mellitus, on no medications prior to admission No further cardiac testing at this time. Continue spironolactone 25 mg daily and Lasix 40 mg daily upon discharge. Continue aspirin 325 mg daily Continue Lipitor 20 mg daily Follow-up in our office in 1 to 2 weeks
--- NOTE | 2025-04-19 10:03 | SW/DCPLANNER ---
Spoke with patient on the phone. Patient stated that he is doing well. Patient stated that he is aware of his upcoming appointments. Patient stated that he just got a text from Pierce Crouch that his new medicine is ready to be picked up. Patient stated that he has no concerns or questions at this time. Beatriz COURTNEY Service Planner
== END 2025-04-18 14:04 | disposition home or self-care (01) | DRG 871 ==
LOC: ER 10:17 → ICU 12:19 → 2ND 04-17 10:54
PROVIDERS: Admitting Provider Student in an Organized Health Care Education/Training Program; Emergency Provider Student in an Organized Health Care Education/Training Program; PCP Family Medicine; Visit Provider Student in an Organized Health Care Education/Training Program
DX: A41.9 Sepsis, unspecified organism (principal); I50.33 Acute on chronic diastolic (congestive) heart failure; J96.21 Acute and chronic respiratory failure with hypoxia; J96.22 Acute and chronic respiratory failure with hypercapnia; J18.9 Pneumonia, unspecified organism; N17.9 Acute kidney failure, unspecified; I13.0 Hypertensive heart and chronic kidney disease with heart failure and stage 1 through stage 4 chronic kidney disease, or unspecified chronic kidney disease; C34.01 Malignant neoplasm of right main bronchus; G47.33 Obstructive sleep apnea (adult) (pediatric); I25.10 Atherosclerotic heart disease of native coronary artery without angina pectoris; K21.9 Gastro-esophageal reflux disease without esophagitis; E11.22 Type 2 diabetes mellitus with diabetic chronic kidney disease; M10.9 Gout, unspecified; I45.10 Unspecified right bundle-branch block; N18.32 Chronic kidney disease, stage 3b; J43.9 Emphysema, unspecified; M19.90 Unspecified osteoarthritis, unspecified site; E78.49 Other hyperlipidemia; Z79.899 Other long term (current) drug therapy; Z79.82 Long term (current) use of aspirin; Z79.84 Long term (current) use of oral hypoglycemic drugs; Z88.8 Allergy status to other drugs, medicaments and biological substances; Z87.01 Personal history of pneumonia (recurrent); Z85.828 Personal history of other malignant neoplasm of skin; Z91.198 Patient's noncompliance with other medical treatment and regimen for other reason; Z98.49 Cataract extraction status, unspecified eye; Z96.652 Presence of left artificial knee joint; Z82.49 Family history of ischemic heart disease and other diseases of the circulatory system; Z83.3 Family history of diabetes mellitus; Z82.3 Family history of stroke; Z87.891 Personal history of nicotine dependence; Z95.5 Presence of coronary angioplasty implant and graft; Z99.81 Dependence on supplemental oxygen
CPT/HCPCS: 36415; 71046; 71275; 80053; 81001; 82803; 82962; 83735; 83880; 84484; 85025; 86803; 87040; 87389; 87633; 87636; 87641; 93005; 93306; 94640; 94760; J0456; J1650; J1938; J2543; J2919; J3372; J7050; Q9967

== ENCOUNTER 2025-04-25 09:57 | Outpatient (CLI) | payer MEDICARE, SELFPAY ==
--- OUTSIDE RECORDS SUMMARY | 2025-03-12 20:41 | XMS_ITS | Encounter Summary ---
Author Organization [facility] Address [address] [place] [address] Care Team Providers Care Product Sales Representative Name Role Phone Joycelyn Montes PANKAJ Primary Care Provider [phone] Reason for Referral * Consultation (Routine) - Authorized Specialty Diagnoses / Procedures Referred By Jarod rod Referred To Contact Family Medicine Diagnoses Acute hypoxic respiratory failure Pneumonia of right lung due to infectious organism, unspecified part of lung Lung mass Pulmonary emphysema, unspecified emphysema type (CMS/HCC) Small cell carcinoma of right lung, unspecified part of lung Bernardo Chavez MD [address] [place] [address] Phone: tel: fax: Referral ID Status Reason Start Date Expiration Date V isits Requested Visits Authorized [id number] Authorized 03/17/2025 09/16/2026 1 1 * Home Health (Routine) - Authorized Specialty Diagnoses / Procedures Referred By Jarod rod Referred To Contact Home Health Services Diagnoses Acute hypoxic on chronic hypercapnic respiratory failure Bernardo Chavez MD [address] [place] [address] Phone: tel: fax: Referral ID Status Reason Start Date Expiration Date Visits Requested Visits Authorized [id number] Authorized Specialty Services Required 03/16/2025 09/15/2026 999 999 Reason for Visit * Reason Comments Shortness of Breath * Auth/Cert (Routine) Specialty Diagnoses / Procedures Referred By Contac t Referred To Contact Diagnoses Pneumonia of right lung due to infectious organism, unspecified part of lung Acute hypoxic respiratory failure Acute hypoxic on chronic hypercapnic respiratory failure Pneumonia Mariah Mcgowan MD [address] [place] [address] Phone: tel: fax: PAV A Inpatient [address] [place] [address] Referral ID Status Reason Start Date Expiration Date Visits Re quested Visits Authorized [id number] 1 1 Encounter Details Date Type Department Care Team (Late st Contact Info) Description 03/12/2025 8:41 PM EDT - 03/17/2025 11:49 AM EDT Hospital Encounter PAV A Inpatient [address] [place] [id number] Staci Jones MD [address] [place] [address] Mariah Mcgowan MD [address] [place] [address] Gt De La Paz MD [address] [place] [address] Delfino Aceves MD [address] [place] [address] Enrrique uDque MD [address] [place] [address] Bernardo Chavez MD [address] [place] [address] Pneumonia of right lung due to infectious organism, unspecified part of lung (Primary Dx); Acute hypoxic respiratory failure; Acute hypoxic on chronic hypercapnic respiratory failure; Lung mass; Pulmonary emphysema, unspecified emphysema type (CMS/HCC); Small cell carcinoma of right lung, unspecified part of lung Discharge Disposition: Home-Health Care [facility] Social History Tobacco Use Types Packs/Day Years [...] and Family Not on file 03/15/2025 Attends Hoahaoism Services Not on file 03/15 Active Member [...] any time in the past 12 m [facility], were you homeless or living in a care home (including now)? No 03/15/2025 Utilities Answer Date [...] 4 times a day. 03/16/2024 HYDROcodone-acet aminophen ([place]) 10-325 MG tablet Take 1 tablet by [...] from the original note were not included. [id number] Learning About Respiratory Failure What is respiratory [...] this instruction, always ask your healthcare professional. [employer] disclaims any warranty or liability for your use of this information. ?? [id number] [employer]. * Progress Notes - Laurie Laguna - 03/17/2025 10:51 AM EDT Case Management Discharge Note Last Santos 74 y.o. male CSN: [id number] Admission: 03/12/2025 8:41 PM Primary Problem: Acute hypoxic on chronic hypercapnic respiratory failure Primary Tag Maker: Primary Caregiver: Self Assistance Available at Discharge: Availability of Care Givers (#Hours): 24 hours (Spouse available as needed.) Family/Tag Maker(s) Willingness Assessed to care for patient at [...] placed copy in patients chart [facility] [address] [facility] [address], [place] [address] Follow up Provider for DME- Home Oxygen and Rolling Walker, Portable tank to be delivered to bedside prior todischarge. Syeda from [facility] will call Spouse to see if they want RW delivered to bedside or home. [email or web address], [employer]. [address] [place] [address], [facility] [address] [place] [address] Follow up Provider for Home Health SN for post hospital assessment and medication review, PT/OT to evaluate and treat. They will call you to schedule initial visit. Please call them with any questions- [phone] Francisco Lynn MD [address] [place] [address] [place] [address] Discharge Transportation: Transportation Anticipated: family or friend [...] PCP name and Address: Joycelyn Montes PA [address] [facility] [address] Referring provider name and address: Francisco Lynn MD [address] [place] [address] [place] [address] Chief Concern, Brief History of Present Illness, and Hospital Course Last Santos is a 74 y.o. male w/ relevant hx of CAD (s/p inferior GA), COPD(no home O2), BPH,HTN, HLD, DM2, recent diagnosis of small cell lung cancer (diagnosed Feburary, RUL hypermetabolic nodule, R peritracheal and hilar adenopathy) who presented to OSH for acute hypoxic respiratory failure requiring intubation. He was treated for PNA, extubated 03/15, and weaned to 3-4L NC on day of discharge. HH PT/OT set up with home oxygen. [facility] consulted to discuss treatment options and patient continued to decline them. #AHRF req MV (s/p extubation) 2/ PNA, resolving #Stage III Small Cell Lung Cancer - Biopsy results are in media tab--small cell lung cancer - Was reportedly supposed to undergo chemotherapy and radiation treatment with local oncologist in [place] (Liz Bryan) but declined treatment- takes Ivermectin [...] HYDROcodone-acetaminophen 10-325 MG tablet Commonly known as: [place] Take 1 tablet by mouth every 6 [...] Your Medications These medications were sent to [facility] [place], [place] - [address] [facility] [address] tiotropium 18 MCG inhalation capsule Information about [...] Note Last Santos 74 y.o. male CSN: [id number] Admission: 03/12/2025 8:41 PM Primary Problem: Acute hypoxic on chronic hypercapnic respiratory failure Anticipated Discharge Date: Potentially tomorrow, pending progress. Has Discharge Plans Changed? No Additional Comments: Per MD during morning Team meeting, patient could potentially be ready for discharge tomorrow, pending progress. PT/OT recommendations are HH PT/PT, DME- Rolling Walker. Patient choice for DME provider is [facility]. CM sent order and referral for RW via fax: [phone],Attn- Syeda. CM also sent referral for HH: [...] w/ relevant hx of CAD (s/p inferior GA), COPD(no home O2), BPH,HTN, HLD, DM2, recent [...] and radiation treatment with local oncologist in [place] (Liz Bryan) but declined treatment- takes Ivermectin [...] not currently on treatment, CAD s/p inferior GA in 2007, COPD not on home oxygen, [...] Emergency Contact: CRYSTAL SANTOS Mobile Relation: Spouse Pari Mutuel Clerk needed? No Patient's HCPOA: is same as [...] hyperlipidemia, type 2 diabetes who presented from [facility] for acute hypoxic respiratory failure requiring [...] pulmonary disease) with emphysema (CMS/HCC) (03/15/2025), Diabetes ([facility]), Diastolic dysfunction (03/15/2025), Essential hypertension (01/03/2016), High blood pressure, History of heart artery stent (03/15/2025), History of myocardial infarction (01/03/2016), Hyperlipidemia (01/03/2016), Impingement syndrome, shoulder, left (03/15/2025), Knee pain (01/03/2016), and Myocardial infarction ([facility]). Surgical History He has a past surgical [...] 2:34 AM Relevant Results Non-Gynecologic Cytology, Fluid: [id number] Order: [id number] Collected 03/13/2025 11:34 Status: Final result Test [...] or concerns. Fabi Richter MD Fellow, PGY4 [facility] [phone] [1] Current Facility-Administered Medications Medication Dose Route [...] MD 5,000 Units at 03/15/25 1334 HYDROcodone-acetaminophen ([place]) 5-325 MG per tablet 10 mg of [...] has a past medical history of Diabetes ([facility]), High blood pressure, and Myocardial infarction ([facility]). Past Surgical History Patient has a past surgical history that includes Skin cancer excision (2020); Cardiac catheterization; and Coronary stent placement (2009). Precautions Medical Precautions: Fall precautions Subjective Pt agreeable to PT initial evaluation. Participants in Care Family/Caregiver Present: No Presentation Oxygen Therapy: Supplemental oxygen O2 Delivery Method: High flow nasal cannula (switched to NRB for mobility in [facility], per RN; pt returned to [facility] at end of session) FiO2 (%): 50 [...] admission Level of Mobility: Ambulatory- community Mobility Tower: Independent gait without device History of Falls: [...] postioning. Bed Mobility Exam: Rolling/Turning Level of Tower: Stand-by assist Physical/Nonphysical Assist: Supervision, Verbal Cues Assistive Device: Bed rails Bed Mobility Exam: Scooting/Bridging Level of Tower: Contact guard (to scoot forward while seated at EOB) Physical/Nonphysical Assist: Verbal Cues, Minimal cues Bed Mobility Exam: Supine to Sit Level of Tower: Contact guard Physical/Nonphysical Assist: Verbal Cues, Minimal cues Assistive Device: Bed rails Transfers Transfer Interventions: Pt required cues for hand placement to push up to stand, midline awareness upon initial stand, body positioning prior to sitting, and reaching back prior to sitting. Transfer Exam: Sit to stand Level of Tower: Minimum assist (75% patient's effort) (min assist x1 rep from bed, CGA x1 rep from chair and x1 rep from BSC) Physical/Nonphysical Assist: Verbal Cues, Minimal cues, 1 person + 1 person to manage equipment Assistive Device: Walker, rolling Transfer Exam: Stand to Sit Level of Tower: Contact guard (x3 reps) Physical/Nonphysical Assist: Verbal [...] Assessments Standardized Assessments Standardized Assessments: [facility] 6-Clicks Mobility Assessment [facility] 6-Clicks Mobility Assessment Difficulty patient has turning [...] with a railing?: A lot [facility] 6-Clicks Mobility Assessment Total : 18 Assessment [...] has a past medical history of Diabetes ([facility]), High blood pressure,and Myocardial infarction ([facility]). Past Surgical History Patient has a past surgical history that includes Skin cancer excision (2020); Cardiac catheterization; and Coronary stent placement (2009). 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 Level of Tower Adaptive Equipment Utilized Interventions Feeding Grooming Setup [...] needed, encouraged to mobilize in hallway with staff training and development manager to promote tolerance to return to prior level of functioning. BED MOBILITY Level of Tower Physical/Non- physical Assist Adaptive Equipment Utilized Rolling/ Turning Stand-by assist Supervision, Verbal Cues Bed rails Scooting/ Bridging Contact guard (to scoot forward while seated at EOB) Verbal Cues, Minimal cues Supine to Sit Contact guard Verbal Cues, Minimal cues Bed rails Sit to Supine TRANSFERS Level of Tower Physical/Non- physical Assist Adaptive Equipment Utilized Sit [...] Bed to Chair Shower Transfer STANDARDIZED ASSESSMENTS [facility] 6-Click Daily Activities Help from Other: Don/Doff Regular Lower Body Clothings: A lot Help From Other: Bathing: A lot Help From Other: Toileting: Little Help From Other: Don/Doff Upper Body Clothings: None Help From Other: Grooming: None Help From Other: Eating Meals: None [facility] 6 Click - Daily Activities Score: [...] Note Last Santos 74 y.o. male CSN: [id number] Admission: 03/12/2025 8:41 PM Primary Problem: Acute hypoxic on chronic hypercapnic respiratory failure Hide Salter reviewed chart and spoke with patient's spouse at bedside to complete this Initial Case Management Assessment. PCP: Levar Davison MD ([phone]) [facility]acy[facility] Emergency Contact: Extended Emergency Contact Information Primary Emergency Contact: CRYSTAL SANTOS Mobile Relation: Spouse Pari Mutuel Clerk needed? No Insurance: Primary Visit Coverage Payer Plan Sponsor Code Group Number Group Name ANTHEM MEDICARE ANTHEM SENIOR ADVANTAGE [id number] Primary Visit Coverage Subscriber Subscriber ID Subscriber Name Subscriber SSN Subscriber Address [id number] LAST SANTOS [phone] [address] [facility] [place] [address] Patient information: Primary Caregiver: Self Accompanied by/Relationship: spouse - Crystal Support System: Immediate family Daily Living Activities: Functional Status: Independent Living Arrangements: Spouse/Significant other Type of Residence: Private residence, Single Level [address] [facility] [place] [address] Current DME: Equipment Currently Used at Home: [...] Dialysis Services: NA Living Will/Advance Directive/Power of Counter Server /Guardian: NA - MARYCRUZ-Crystal Santos Additional Comments: Patient admitted from [facility] with acute hypoxic respiratory failure, pulmonary mass [...] recommendations. Prior to admission resided with spouse, Crystal, no home health, no oxygen/cpap, independent with self care. CM will continue to follow. Nasra Adkins, [facility],DIGITAL HARDWARE DESIGN ENGINEER * Progress Notes - Nasra Adkins - 03/15/2025 9:31 AM EDT Case Management Adult Progress Note Last Santos 74 y.o. male CSN: [id number] Admission: 03/12/2025 8:41 PM Primary Problem: Acute [...] Friends and Family: Not on file Attends Hoahaoism Services: Not on file Active Member of Clubs or Organizations: Not on file Attends Club or Organization Meetings: Not on file Marital Status: Financial Resource Strain: Medium Risk (03/15/2025) Overall Financial Resource Strain (CARDIA) Difficulty of Paying Living Expenses: Somewhat hard Nasra Adkins [facility],DIGITAL HARDWARE DESIGN ENGINEER * Care Plan - Shellie Casarez [...] Note Last Santos 74 y.o. male CSN: [id number] Room/Bed 211/211A Nutrition evaluation type: follow-up Reason [...] 35.18 Weight Evaluation: Obese-Class 2 (BMI 35-39.9) [place] Body Weight (kg): 72.7 Percent [place] Body Weight: 150 Adjusted Body Weight (kg): 81.5 Estimated Needs: Kcal/ K-25 Kcal Provided: 4909-0280 Kcal Needs Based On: Adjusted weight Gm Protein/ Kg : 1.2-1.5 Protein Provided: 98-123 Protein Needs Based On: Adjusted weight ML/ Kg: - Metabolic Cart Study Results: Current Nutrition Intake: Diet Supplements: None Diet Order: NPO Diet Experience and Nutrition History: Diet Education Provided: Will monitor Pertinent home medications: Hoahaoism needs: Nutrition Focused Physical Exam: Physical exam [...] yo M with PMH CAD (s/p inferior GA), COPD(no home O2), BPH, HTN, HLD, DM2, [...] and radiation treatment with local oncologist in [place] (Liz Bryan) but declined treatment- takes Ivermectin [...] yo M with PMH CAD (s/p inferior GA), COPD(no home O2), BPH, HTN, HLD, DM2, [...] and radiation treatment with local oncologist in [place] (Liz Bryan), however patient wished to wait [...] to get records from primary oncologist in [place] Friday - MRI brain w/ and w/o [...] Note Last Santos 74 y.o. male CSN: [id number] Room/Bed 211/211A Nutrition evaluation type: assessment Reason [...] Supplemental oxygen O2 Delivery Method: Mechanical ventilator [place] Coma Scale Score: 6 Chandan/Cubbin Pressure Risk [...] 35.6 Weight Evaluation: Obese-Class 2 (BMI 35-39.9) [place] Body Weight (kg): 72.7 Percent [place] Body Weight: 150 Estimated Needs: Kcal/ K-14 Kcal Provided: 3684-3270 Kcal Needs Based On: Current weight Gm Protein/ Kg : 2+ Protein Provided: 145+ Protein Needs Based On: [place] weight ML/ Kg: Per team or 1 mL/kcal Metabolic Cart Study Results: Current Nutrition Intake: Diet Supplements: None Diet Order: NPO Diet Experience and Nutrition History: Diet Education Provided: Will monitor Pertinent home medications: Hoahaoism needs: Nutrition Focused Physical Exam: Unable to Complete Exam: Weekend coverage Physical exam performed on (date): Assessment of Malnutrition: Malnutrition Identified: Additional Information Needed Nutrition Problem: Inadequate oral intake related to MV as evidenced by NPO. Status of Nutrition Diagnosis: New Nutrition Interventions and Recommendations: PO per WASTE DUSTER/primary TF recs if warranted: Peptamen Intense VHP [...] [1] Past Medical History: Diagnosis Date Diabetes ([facility]/HCC) High blood pressure Myocardial infarction (CMS/HCC) [2] [...] yo M with PMH CAD (s/p inferior GA), COPD(no home O2), BPH, HTN, HLD, DM2, [...] and radiation treatment with local oncologist in [place] (Liz Bryan), however patient wished to wait [...] to get records from primary oncologist in [place] Friday - MRI brain w/ and w/o [...] w/ relevant hx of CAD (s/p inferior GA), COPD(no home O2), BPH,HTN, HLD, DM2, recent diagnosis of small cell lung cancer (diagnosed Feburary, RUL hypermetabolic nodule, R peritracheal and hilar adenopathy) who presented to OSH for acute hypoxic respiratory failure requiring intubation. He was treated for PNA, extubated 03/15, and weaned to 3-4L NC on day of discharge. HH PT/OT set up with home oxygen. [facility] consulted to discuss treatment options and patient continued to decline them. #AHRF req MV (s/p extubation) 2/2 PNA, resolving #Stage III Small Cell Lung Cancer - Biopsy results are in media tab--small cell lung cancer - Was reportedly supposed to undergo chemotherapy and radiation treatment with local oncologist in [place] (Liz Bryan) but declined treatment- takes Ivermectin [...] w/ significant PMHx of CAD s/p inferior GA in 2007, COPD not onhome oxygen, BPH, HTN, HLD, T2DM complicated by peripheral neuropathy who presents from [facility] for acute hypoxic respiratory failure requiring [...] each morning. 03/16/24 Rosie Elizondo MD HYDROcodone-acetaminophen ([place]) 10-325 MG tablet Take 1 tablet (10 [...] and radiation treatment with local oncologist in [place] (Liz Bryan), however patient wished to wait [...] to get records from primary oncologist in [place] - MRI brain w/ and w/o ordered [...] 250 mL IVPB (vial adapter required) 500 mg Intravenous q24h Tate Dai MD cefTRIAXone (Rocephin) 2 [...] mouth 1 (one) time each morning. HYDROcodone-acetaminophen ([place]) 10-325 MG tablet Take 1 tablet (10 [...] evaluated the patient with the resident/fellow via [facility] ICU audio- visual support as available. I [...] 1-5-1T Psychiatric: Mood and Affect: Mood normal. [place] Coma Scale Score: 7 ED Course & [...] Provider 03/14/25 06 Scheduled TATE DAI 03/17/25 0600 Scheduled REGLA, TATE Young 03/21/25 06 Scheduled REGLA, TATE Young 03/24/25 06 Scheduled REGLA, TATE Young 03/28/25 06 Scheduled REGLA, TATE Young 03/31/25 06 Scheduled REGLA, TATE Young 04/04/25 0600 Scheduled REGLA, TATE Young 04/07/25 0600 Scheduled TATE DAI Acknowledged TATE DAI 03/12/252101 SBT - Assess for SBT readiness and complete SBT trial when criteria met Daily Order ID Start Status Ordering Provider [id number] 03/13/25 0800 Acknowledged THE, STACI S 03/14/25 0600 Scheduled THE, STACI S 03/15/25 0600 Scheduled THE, STACI S 03/16/25 0600 Scheduled THE, STACI S 03/17/2500 Scheduled THE, STACI S Acknowledged THE, STACI [...] Continuous Order ID Start Status Ordering Provider [id number] 03/12/252102 Completed THE, STACI S [id number] 03/13/25799 Acknowledged THE, STACI S [id number] 03/13/251999 Acknowledged THE, STACI S 03/14/25799 Scheduled THE, STACI S 03/14/251999 Scheduled THE, STACI S 03/15/25799 Scheduled THE, STACI S 03/15/251999 Scheduled THE, STACI S 03/16/25799 Scheduled THE, STACI S 03/16/251999 Scheduled THE, STACI S Acknowledged THE, STACI S 03/12/252101 End Tidal co2 Monitoring Continuous Order ID Start Status Ordering Provider [id number] 03/12/252102 Acknowledged THE, STACI S [id number] 03/13/25799 Acknowledged THE, STACI S [id number] 03/13/251999 Acknowledged THE, STACI S 03/14/25799 Scheduled [...] integrityUntil discontinued Acknowledged THE, STACI S 03/12/252101 Mcl[place] teeth every 12 hours Until discontinued Acknowledged [...] Provider: (Not yet assigned) Acknowledged TATE DAI 03/12/252099 ED to floor bed request Once Completed TATE DAI 03/12/252047 Methemoglobin Once Final result [facility] 03/12/252047 Initiate contact isolation Continuous Comments: Added [...] and Legionella Urinary Antigen Once In process [facility] 03/12/252045 Methicillin Resistant Staphylococcus aureus (MRSA) by PCR Once In [facility] 03/12/252045 STAT Canceled [facility] 03/12/252045 Nasopharyngeal Respiratory Panel Once In process [facility] 03/12/252045 SARS CoV-2/COVID-19 by PCR - Rapid PROCEDURE ONCE In [facility] 03/12/252045 Procalcitonin STAT In [facility] 03/12/252045 Hepatitis C Antibody - ED Once In [facility] 03/12/252045 ED Protocol - HIV 1/2 Antibody/Antigen Screen Once In [facility] 03/12/252045 ED HIV 1/2 Antibody/Antigen Screen w/Reflex to HIV 1/2 Differentiation PROCEDURE ONCE In process [facility] 03/12/252045 CMP STAT In [facility] 03/12/252045 Magnesium STAT In [facility] 03/12/252045 Troponin now and 120 min STAT In [facility] 03/12/252045 STAT Canceled [facility] 03/12/252042 ICU Target Pain Score Until discontinued Comments: Initiate and titrate analgesia to attain goal CPOT first prior to initiating sedation unless otherwise ordered. Goal is to provide adequate pain management prior to initiating sedative agents. Target consistent patient goal CPOT as ordered. Document CPOT per nursing policy prior to and following PRN dosing and with any changes in infusionrate. Acknowledged [facility] 03/12/252042 Target arousal level: Until discontinued Comments: [...] peak inspiratory pressures are less than 30. [WH] ED Course User Index [WH] Tate Dai [...] None Disposition Admit Admitting/Attending Physician: MARIAH MCGOWAN [[id number]] Provider Care Team: [facility] MICU 2 [88] Are they the primary team?: Yes [1] - [1] Past Medical History: Diagnosis Date Diabetes (CMS/[facility]) High blood pressure Myocardial infarction (CMS/HCC) [2] [...] so intubated prior to transfer. 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 VS stable en route per EMS report documented in this encounter Plan of Treatment Pending Results Name Type Priority Associated Diagnoses Date /Time AFB Culture, Respiratory Source and Acid Fast Stain Microbiology Routine 03/13/2025 11:34 AM EDT Scheduled Orders Name Type Priority [...] UNSOLICITED RESULTS Routine 03/14/2025 12:03 PM EDT [facility], E/M 30-74 MINUTES Routine 03/14/2025 [...] CO2 MONITORING Routine 03/13/2025 8:00 AM EDT [facility], E/M 30-74 MINUTES Routine 03/13/2025 [...] EDT BLOOD GAS PANEL, VENOUS Routine 03/13/20 12:57 AM EDT COMPREHENSIVE METABOLIC PANEL, PLASMA [...] UNSOLICITED RESULTS Routine 03/12/2025 8:41 PM EDT [facility], ADDL 30 MIN Routine 03/12/2025 8:41 PM EDT documented in this encounter Results * POCT glucose meter (03/17/2025 8:31 AM EDT) POCT Glucose 99 74 - 99 mg/dL 03/17/2025 8:33 AM EDT [facility] Comment:Accuracy of [...] for testing. Comment 03/17/2025 8:33 AM EDT [facility] Tap Builder ID Lindsey Zamora 03/17/2025 8:33 AM EDT [facility] Device ID [id number] 03/17/2025 8:33 AM EDT [facility] Specimen Type POC Capillary 03/17/2025 8:33 AM EDT [facility] Blood Capillary blood specimen / Unknown 03/17/2025 8:31 AM EDT 03/17/2025 8:33 AM EDT us Bernardo Chavez MD LAB POINT OF CARE TE ST DOCKED DEVICE UNSOLICITED RESULTS Final Result [facility] [address] [place] [id number] * (ABNORMAL) Basic metabolic panel (03/17/2025 5:29 AM EDT) Glucose, Plasma 90 74 - 99 mg/dL 03/17/2025 6:12 AM EDT [facility] BUN, Plasma 17 8 - 23 mg/dL 03/17/2025 6:12 AM EDT [facility] Creatinine, Plasma 1.31(H) 0.70 - 1.20 mg/dL 03/17/2025 6:12 AM EDT [facility] BUN/Creatinine Ratio 13 03/17/2025 6:12 AM EDT [facility] Sodium, Plasma 139 136 - 145 mmol/L 03/17/2025 6:12 AM EDT [facility] Potassium, Plasma 4.8 3.6 - 4.9 mmol/L 03/17/2025 6:12 AM EDT [facility] Comment:Hemolyzed, result ma y be falsely increased. Chloride, Plasma 102 97 - 107 mmol/L 03/17/2025 6:12 AM EDT [facility] CO2, Plasma 28 22 - 29 mmol/L 03/17/2025 6:12 AM EDT [facility] Anion Gap 9 6 - 16 mmol/L 03/17/2025 6:12 AM EDT [facility] Total Calcium, Plasma 8.7(L) 8.9 - 10.2 mg/dL 03/17/2025 6:12 AM EDT [facility] eGFRcr 57.8 mL/min/1.7 3m*2 03/17/2025 6:12 AM EDT [facility] Comment:Reported eGFRcr in m L/min/1.73m2 is based the CKD-EPI 2020 equation that does not use a race coefficient. Blood Venous blood specimen / Unknown Venipuncture / Unknown 03/17/2025 5:29 AM EDT 03/17/2025 5:40 AM EDT us Gt De La Paz MD LAB BLOOD ORDERABLES Final Res ult [facility] [address] [place] [address] * (ABNORMAL) CBC W/O Differential (03/17/2025 5:29 AM EDT) WBC Count 7.19 3.70 - 10.30 10*3/uL LAB HEMATOLOGY METHOD 03/17/2025 5:52 AM EDT [facility] RBC Count 4.43(L) 4.60 - 6.10 10*6/uL LAB HEMATOLOGY METHOD 03/17/2025 5:52 AM EDT [facility] HGB 11.9(L) 13.7 - 17.5 g/dL LAB HEMATOLOGY METHOD 03/17/2025 5:52 AM EDT [facility] HCT 39.1(L) 40.0 - 51.0 % LAB HEMATOLOGY METHOD 03/17/2025 5:52 AM EDT [facility] Platelet Count 188 155 - 369 10*3/uL LAB HEMATOLOGY METHOD 03/17/2025 5:52 AM EDT [facility] MCV 88 79 - 98 fL LAB HEMATOLOGY METHOD 03/17/2025 5:52 AM EDT [facility] MCH 26.9 26.0 - 32.0 pg LAB HEMATOLOGY METHOD 03/17/2025 5:52 AM EDT [facility] MCHC 30.4(L) 30.7 - 35.5 g/dL LAB HEMATOLOGY METHOD 03/17/2025 5:52 AM EDT [facility] RDW 16.7(H) 11.5 - 14.5 % LAB HEMATOLOGY METHOD 03/17/2025 5:52 AM EDT [facility] MPV 10.1 8.8 - 12.5 fL LAB HEMATOLOGY METHOD 03/17/2025 5:52 AM EDT [facility] nRBC 0.0 <=0.0 per 100 WBCs LAB HEMATOLOGY METHOD 03/17/2025 5:52 AM EDT [facility] Blood Venous blood specimen / Unknown Venipuncture / Unknown 03/17/2025 5:29 AM EDT 03/17/2025 5:44 AM EDT us Gt De La Paz MD LAB BLOOD ORDERABLES Final Res ult [facility] [address] [place] [address] * (ABNORMAL) Blood gas panel, venous (03/17/2025 5:29 AM EDT) pH, Venous 7.35 7.32 - 7.43 LAB HEMATOLOGY METHOD 03/17/2025 5:39 AM EDT [facility] pCO2, Venous 59(H) 40 - 55 mmHg LAB HEMATOLOGY METHOD 03/17/2025 5:39 AM EDT [facility] pO2, Venous 71(H) 25 - 40 mmHg LAB HEMATOLOGY METHOD 03/17/2025 5:39 AM EDT [facility] SO2, Measured, Venous 95(H) 65 - 80 % LAB HEMATOLOGY METHOD 03/17/2025 5:39 AM EDT [facility] Base Excess, Venous 5.5(H) -2.0 - 3.0 mmol/L LAB HEMATOLOGY METHOD 03/17/2025 5:39 AM EDT [facility] Bicarbonate, Calculated, Venous 33(H) 22 - 26 mmol/L LAB HEMATOLOGY METHOD 03/17/2025 5:39 AM EDT [facility] Hematocrit, Whole Blood 37.2(L) 40.0 - 51.0 % LAB HEMATOLOGY METHOD 03/17/2025 5:39 AM EDT [facility] Sodium, Whole Blood 139 136 - 145 mmol/L LAB HEMATOLOGY METHOD 03/17/2025 5:39 AM EDT [facility] Potassium, Whole Blood 4.6 3.6 - 4.9 mmol/L LAB HEMATOLOGY METHOD 03/17/2025 5:39 AM EDT [facility] Chloride, Whole Blood 103 97 - 107 mmol/L LAB HEMATOLOGY METHOD 03/17/2025 5:39 AM EDT [facility] Glucose, Whole Blood 88 74 - 99 mg/dL LAB HEMATOLOGY METHOD 03/17/2025 5:39 AM EDT [facility] Lactate, Venous, Whole Blood 0.8 0.5 - 2.2 mmol/L LAB HEMATOLOGY METHOD 03/17/2025 5:39 AM EDT [facility] Ionized Calcium, Whole Blood 4.6 4.6 - 5.1 mg/dL LAB HEMATOLOGY METHOD 03/17/2025 5:39 AM EDT [facility] Blood Venous blood specimen / Unknown Venipuncture / Unknown 03/17/2025 5:29 AM EDT 03/17/2025 5:37 AM EDT us Mariah Mcgowan MD LAB BLOOD ORDERABLES Final Result Performing Organization Address City/[facility]/ZIP Co de Phone Number [facility] [address] [place] [address] * POCT glucose meter (03/16/2025 7:58 PM EDT) [facility] POCT Glucose 97 74 - 99 mg/dL 03/16/2025 8:00 PM EDT [facility] Comment:Accuracy of a [...] for testing. Comment 03/16/2025 8:00 PM EDT [facility] Tap Builder ID Jennifer Winkler 03/16/2025 8:00 PM EDT [facility] Device ID [id number] 03/16/2025 8:00 PM EDT [facility] Specimen Type POC Capillary 03/16/2025 8:00 PM EDT [facility] Blood Capillary blood specimen / Unknown 03/16/2025 7:58 PM EDT 03/16/2025 8:00 PM EDT Bernardo Chavez MD LAB POINT OF CARE TE ST DOCKED DEVICE UNSOLICITED RESULTS Final Result Performing Organization Address City/[facility]/ZIP Co de Phone Number [facility] [address] [place] [address] * (ABNORMAL) POCT glucose meter (03/16/2025 5:50 PM EDT) [facility] POCT Glucose 107(H) 74 - 99 [...] for testing. Comment 03/16/2025 5:51 PM EDT [facility] Tap Builder ID Constance Schrader 025 5:51 PM EDT [facility] Device ID [id number] 03/16/2025 5:51 PM EDT [facility] Specimen Type POC Capillary 03/16/2025 5:51 PM EDT [facility] Blood Capillary blood specimen / Unknown 03/16/2025 5:50 PM EDT 03/16/2025 5:51 PM EDT us Bernardo Chavez MD LAB POINT OF CARE TE ST DOCKED DEVICE UNSOLICITED RESULTS Final Result Performing Organization Address [facility] de Phone Number [facility] [address] [place] [address] * (ABNORMAL) POCT glucose meter (03/16/2025 11:42 AM EDT) [facility] POCT Glucose 128(H) 74 - 99 [...] Comment 03/16/2025 11:44 AM EDT [facility] Tap Builder ID Constance Schrader 025 11:44 AM EDT [facility] Device ID [id number] 03/16/2025 11:44 AM EDT [facility] Specimen Type POC Capillary 03/16/2025 11:44 AM EDT [facility] Blood Capillary blood specimen / Unknown 03/16/2025 11:42 AM EDT 03/16/2025 11:44 AM EDT us Bernardo Chavez MD LAB POINT OF CARE TE ST DOCKED DEVICE UNSOLICITED RESULTS Final Result Performing Organization Address City/[facility] Co de Phone Number [facility] [address] [place] [address] * (ABNORMAL) POCT glucose meter (03/16/2025 8:01 AM EDT) POCT Glucose 103(H) 74 - 99 mg/dL 03/16/2025 8:02 AM EDT [facility] Comment:Accuracy of a [...] Comment 03/16/2025 8:02 AM EDT [facility] Tap Builder ID Constance Schrader 025 8:02 AM EDT [facility] Device ID [id number] 03/16/2025 8:02 AM EDT [facility] Specimen Type POC Capillary 03/16/2025 8:02 AM EDT [facility] Blood Capillary blood specimen / Unknown 03/16/2025 8:01 AM EDT 03/16/2025 8:02 AM EDT us Bernardo Chavez MD LAB POINT OF CARE TE ST DOCKED DEVICE UNSOLICITED RESULTS Final Result [facility] [address] [place] [address] * (ABNORMAL) Basic metabolic panel (03/16/2025 6:07 AM EDT) Pathologist [facility] Glucose, Plasma 92 74 - 99 mg/dL 03/16/2025 6:51 AM EDT [facility] BUN, Plasma 25(H) 8 - 23 mg/dL 03/16/2025 6:51 AM EDT [facility] Creatinine, Plasma 1.49(H) 0.70 - 1.20 mg/dL 03/16/2025 6:51 AM EDT [facility] BUN/Creatinine Ratio 17 03/16/2025 6:51 AM EDT [facility] Sodium, Plasma 141 136 - 145 mmol/L 03/16/2025 6:51 AM EDT [facility] Potassium, Plasma 4.6 3.6 - 4.9 mmol/L 03/16/2025 6:51 AM EDT [facility] Chloride, Plasma 103 97 - 107 mmol/L 03/16/2025 6:51 AM EDT [facility] CO2, Plasma 29 22 - 29 mmol/L 03/16/2025 6:51 AM EDT [facility] Anion Gap 9 6 - 16 mmol/L 03/16/2025 6:51 AM EDT [facility] Total Calcium, Plasma 8.9 8.9 - 10.2 mg/dL 03/16/2025 6:51 AM EDT [facility] eGFRcr 49.6 mL/min/1.7 3m*2 03/16/2025 6:51 AM EDT [facility] Comment:Reported eGFRcr in m L/min/1.73m2 is based the CKD-EPI 2020 equation that does not use a race coefficient. Blood Venous blood specimen / Unknown Venipuncture / Unknown 03/16/2025 6:07 AM EDT 03/16/2025 6:22 AM EDT us Gt De La Paz MD LAB BLOOD ORDERABLES Final Res ult [facility] [address] [place] [address] * (ABNORMAL) CBC W/O Differential (03/16/2025 6:07 AM EDT) WBC Count 8.70 3.70 - 10.30 10*3/uL LAB HEMATOLOGY METHOD 03/16/2025 6:36 AM EDT [facility] RBC Count 4.52(L) 4.60 - 6.10 10*6/uL LAB HEMATOLOGY METHOD 03/16/2025 6:36 AM EDT [facility] HGB 12.5(L) 13.7 - 17.5 g/dL LAB HEMATOLOGY METHOD 03/16/2025 6:36 AM EDT [facility] HCT 39.6(L) 40.0 - 51.0 % LAB HEMATOLOGY METHOD 03/16/2025 6:36 AM EDT [facility] Platelet Count 199 155 - 369 10*3/uL LAB HEMATOLOGY METHOD 03/16/2025 6:36 AM EDT [facility] MCV 88 79 - 98 fL LAB HEMATOLOGY METHOD 03/16/2025 6:36 AM EDT [facility] MCH 27.7 26.0 - 32.0 pg LAB HEMATOLOGY METHOD 03/16/2025 6:36 AM EDT [facility] MCHC 31.6 30.7 - 35.5 g/dL LAB HEMATOLOGY METHOD 03/16/2025 6:36 AM EDT [facility] RDW 17.0(H) 11.5 - 14.5 % LAB HEMATOLOGY METHOD 03/16/2025 6:36 AM EDT [facility] MPV 9.3 8.8 - 12.5 fL LAB HEMATOLOGY METHOD 03/16/2025 6:36 AM EDT [facility] nRBC 0.0 <=0.0 per 100 WBCs LAB HEMATOLOGY METHOD 03/16/2025 6:36 AM EDT [facility] Blood Venous blood specimen / Unknown Venipuncture / Unknown 03/16/2025 6:07 AM EDT 03/16/2025 6:26 AM EDT us Gt De La Paz MD LAB BLOOD ORDERABLES Final Res ult [facility] [address] [place] [address] * (ABNORMAL) Blood gas panel, venous (03/16/2025 6:07 AM EDT) pH, Venous 7.33 7.32 - 7.43 LAB HEMATOLOGY METHOD 03/16/2025 6:24 AM EDT [facility] pCO2, Venous 61(HH) 40 - 55 mmHg LAB HEMATOLOGY METHOD 03/16/2025 6:24 AM EDT [facility] pO2, Venous 101(H) 25 - 40 mmHg LAB HEMATOLOGY METHOD 03/16/2025 6:24 AM EDT [facility] SO2, Measured, Venous 99(H) 65 - 80 % LAB HEMATOLOGY METHOD 03/16/2025 6:24 AM EDT [facility] Base Excess, Venous 5.0(H) -2.0 - 3.0 mmol/L LAB HEMATOLOGY METHOD 03/16/2025 6:24 AM EDT [facility] Bicarbonate, Calculated, Venous 33(H) 22 - 26 mmol/L LAB HEMATOLOGY METHOD 03/16/2025 6:24 AM EDT [facility] Hematocrit, Whole Blood 37.8(L) 40.0 - 51.0 % LAB HEMATOLOGY METHOD 03/16/2025 6:24 AM EDT [facility] Sodium, Whole Blood 142 136 - 145 mmol/L LAB HEMATOLOGY METHOD 03/16/2025 6:24 AM EDT [facility] Potassium, Whole Blood 4.4 3.6 - 4.9 mmol/L LAB HEMATOLOGY METHOD 03/16/2025 6:24 AM EDT [facility] Chloride, Whole Blood 105 97 - 107 mmol/L LAB HEMATOLOGY METHOD 03/16/2025 6:24 AM EDT [facility] Glucose, Whole Blood 91 74 - 99 mg/dL LAB HEMATOLOGY METHOD 03/16/2025 6:24 AM EDT [facility] Lactate, Venous, Whole Blood 0.6 0.5 - 2.2 mmol/L LAB HEMATOLOGY METHOD 03/16/2025 6:24 AM EDT [facility] Ionized Calcium, Whole Blood 4.7 4.6 - 5.1 mg/dL LAB HEMATOLOGY METHOD 03/16/2025 6:24 AM EDT [facility] Blood Venous blood specimen / Unknown Venipuncture / Unknown 03/16/2025 6:07 AM EDT 03/16/2025 6:21 AM EDT Mariah Mcgowan MD LAB BLOOD ORDERABLES Final Result [facility] [address] [place] [address] * POCT glucose meter (03/16/2025 12:50 AM EDT) [facility] POCT Glucose 89 74 - 99 mg/dL 03/16/2025 12:53 AM EDT [facility] Comment:Accuracy of a glucos e result [...] Comment 03/16/2025 12:53 AM EDT [facility] Tap Builder ID Arlen Jackson 025 12:53 AM EDT [facility] Device ID [id number] 03/16/2025 12:53 AM EDT [facility] Specimen Type POC Capillary 03/16/2025 12:53 AM EDT [facility] Blood Capillary blood specimen / Unknown 03/16/2025 12:50 AM EDT 03/16/2025 12:53 AM EDT us Delfino Aceves MD LAB POINT OF CARE TE ST DOCKED DEVICE UNSOLICITED RESULTS Final Result Performing Organization Address City/[facility]/ZIP Co de Phone Number [facility] [address] [place] [address] * (ABNORMAL) POCT glucose meter (03/15/2025 11:33 PM EDT) [facility] POCT Glucose 109(H) 74 - 99 [...] Comment 03/15/2025 11:35 PM EDT [facility] Tap Builder ID Casie Street 03/15/2025 11:35 PM EDT [facility] Device ID [id number] 03/15/2025 11:35 PM EDT [facility] Specimen Type POC Capillary 03/15/2025 11:35 PM EDT [facility] Blood Capillary blood specimen / Unknown 03/15/2025 11:33 PM EDT 03/15/2025 11:35 PM EDT us Delfino Aceves MD LAB POINT OF CARE TE ST DOCKED DEVICE UNSOLICITED RESULTS Final Result [facility] [address] [place] [address] * (ABNORMAL) POCT glucose meter (03/15/2025 8:33 PM EDT) [facility] POCT Glucose 107(H) 74 - 99 [...] Comment 03/15/2025 8:34 PM EDT [facility] Tap Builder ID Casie Street 03/15/2025 8:34 PM EDT [facility] Device ID [id number] 03/15/2025 8:34 PM EDT [facility] Specimen Type POC Capillary 03/15/2025 8:34 PM EDT [facility] Blood Capillary blood specimen / Unknown 03/15/2025 8:33 PM EDT 03/15/2025 8:34 PM EDT Delfino Aceves MD LAB POINT OF CARE TE ST DOCKED DEVICE UNSOLICITED RESULTS Final Result Performing Organization Address [facility] Co de Phone Number [facility] [address] [place] [address] * POCT glucose meter (03/15/2025 5:58 PM EDT) [facility] POCT Glucose 98 74 - 99 [...] 03/15/2025 5:59 PM EDT [facility] Tap Builder ID Shellie Casarez 025 5:59 PM EDT [facility] Device ID [id number] 03/15/2025 5:59 PM EDT [facility] Specimen Type POC Capillary 03/15/2025 5:59 PM EDT [facility] Blood Capillary blood specimen / Unknown 03/15/2025 5:58 PM EDT 03/15/2025 5:59 PM EDT Delfino Aceves MD LAB POINT OF CARE TE ST DOCKED DEVICE UNSOLICITED RESULTS Final Result Performing Organization Address City/[facility]/ZIP Co de Phone Number [facility] [address] [place] [address] * (ABNORMAL) POCT glucose meter (03/15/2025 1:06 PM EDT) POCT Glucose 101(H) 74 - 99 mg/dL [...] Comment 03/15/2025 1:07 PM EDT [facility] Tap Builder ID Shellie Casarez 025 1:07 PM EDT [facility] Device ID [id number] 03/15/2025 1:07 PM EDT [facility] Specimen Type POC Capillary 03/15/2025 1:07 PM EDT [facility] Blood Capillary blood specimen / Unknown 03/15/2025 1:06 PM EDT 03/15/2025 1:07 PM EDT Delfino Aceves MD LAB POINT OF CARE TE ST DOCKED DEVICE UNSOLICITED RESULTS Final Result Performing Organization Address City/[facility]/ZIP Co de Phone Number [facility] [address] [place] [address] * POCT glucose meter (03/15/2025 12:11 PM EDT) POCT Glucose 92 74 - 99 mg/dL [...] for testing. Comment 03/15/2025 12:12 PM EDT [facility] Tap Builder ID Shellie Casarez 025 12:12 PM EDT [facility] Device ID [id number] 03/15/2025 12:12 PM EDT [facility] Specimen Type POC Capillary 03/15/2025 12:12 PM EDT [facility] Blood Capillary blood specimen / Unknown 03/15/2025 12:11 PM EDT 03/15/2025 12:12 PM EDT Delfino Aceves MD LAB POINT OF CARE TE ST DOCKED DEVICE UNSOLICITED RESULTS Final Result Performing Organization Address City/State/[facility] Co de Phone Number [facility] [address] [place] [address] * (ABNORMAL) POCT glucose meter (03/15/2025 6:29 AM EDT) [facility] POCT Glucose 111(H) 74 - 99 mg/dL 03/15/2025 6:31 AM EDT [facility] Comment:Accuracy of a [...] for testing. Comment 03/15/2025 6:31 AM EDT [facility] Tap Builder ID Heraclio Gomez 03/15/2025 6:31 AM EDT [facility] Device ID [id number] 03/15/2025 6:31 AM EDT [facility] Specimen Type POC Capillary 03/15/2025 6:31 AM EDT [facility] Blood Capillary blood specimen / Unknown 03/15/2025 6:29 AM EDT 03/15/2025 6:31 AM EDT us Delfino Aceves MD LAB POINT OF CARE TE ST DOCKED DEVICE UNSOLICITED RESULTS Final Result [facility] [address] [place] [address] * (ABNORMAL) Basic metabolic panel (03/15/2025 3:27 AM EDT) Glucose, Plasma 89 74 - 99 mg/dL 03/15/2025 4:08 AM EDT [facility] BUN, Plasma 35(H) 8 - 23 mg/dL 03/15/2025 4:08 AM EDT [facility] Creatinine, Plasma 1.75(H) 0.70 - 1.20 mg/dL 03/15/2025 4:08 AM EDT [facility] BUN/Creatinine Ratio 20 03/15/2025 4:08 AM EDT [facility] Sodium, Plasma 141 136 - 145 mmol/L 03/15/2025 4:08 AM EDT [facility] Potassium, Plasma 4.6 3.6 - 4.9 mmol/L 03/15/2025 4:08 AM EDT [facility] Chloride, Plasma 102 97 - 107 mmol/L 03/15/2025 4:08 AM EDT [facility] CO2, Plasma 28 22 - 29 mmol/L 03/15/2025 4:08 AM EDT [facility] Anion Gap 11 6 - 16 mmol/L 03/15/2025 4:08 AM EDT [facility] Total Calcium, Plasma 9.1 8.9 - 10.2 mg/dL 03/15/2025 4:08 AM EDT [facility] eGFRcr 40.9 mL/min/1.7 3m*2 03/15/2025 4:08 AM EDT [facility] Comment:Reported eGFRcr in m L/min/1.73m2 is based the CKD-EPI 2020 equation that does not use a race coefficient. Blood Venous blood specimen / Unknown Venipuncture / Unknown 03/15/2025 3:27 AM EDT 03/15/2025 3:37 AM EDT us Gt De La Paz MD LAB BLOOD ORDERABLES Final Res ult [facility] [address] [place] [address] * (ABNORMAL) CBC W/O Differential (03/15/2025 3:27 AM EDT) WBC Count 8.63 3.70 - 10.30 10*3/uL LAB HEMATOLOGY METHOD 03/15/2025 3:45 AM EDT [facility] RBC Count 4.59(L) 4.60 - 6.10 10*6/uL LAB HEMATOLOGY METHOD 03/15/2025 3:45 AM EDT [facility] HGB 12.8(L) 13.7 - 17.5 g/dL LAB HEMATOLOGY METHOD 03/15/2025 3:45 AM EDT [facility] HCT 40.0 40.0 - 51.0 % LAB HEMATOLOGY METHOD 03/15/2025 3:45 AM EDT [facility] Platelet Count 207 155 - 369 10*3/uL LAB HEMATOLOGY METHOD 03/15/2025 3:45 AM EDT [facility] MCV 87 79 - 98 fL LAB HEMATOLOGY METHOD 03/15/2025 3:45 AM EDT [facility] MCH 27.9 26.0 - 32.0 pg LAB HEMATOLOGY METHOD 03/15/2025 3:45 AM EDT [facility] MCHC 32.0 30.7 - 35.5 g/dL LAB HEMATOLOGY METHOD 03/15/2025 3:45 AM EDT [facility] RDW 17.2(H) 11.5 - 14.5 % LAB HEMATOLOGY METHOD 03/15/2025 3:45 AM EDT [facility] MPV 9.6 8.8 - 12.5 fL LAB HEMATOLOGY METHOD 03/15/2025 3:45 AM EDT [facility] nRBC 0.0 <=0.0 per 100 WBCs LAB HEMATOLOGY METHOD 03/15/2025 3:45 AM EDT [facility] Blood Venous blood specimen / Unknown Venipuncture / Unknown 03/15/2025 3:27 AM EDT 03/15/2025 3:37 AM EDT us Gt De La Paz MD LAB BLOOD ORDERABLES Final Res ult [facility] [address] [place] [address] * (ABNORMAL) Blood gas panel, venous (03/15/2025 3:27 AM EDT) pH, Venous 7.37 7.32 - 7.43 LAB HEMATOLOGY METHOD 03/15/2025 3:39 AM EDT [facility] pCO2, Venous 57(H) 40 - 55 mmHg LAB HEMATOLOGY METHOD 03/15/2025 3:39 AM EDT [facility] pO2, Venous 63(H) 25 - 40 mmHg LAB HEMATOLOGY METHOD 03/15/2025 3:39 AM EDT [facility] SO2, Measured, Venous 93(H) 65 - 80 % LAB HEMATOLOGY METHOD 03/15/2025 3:39 AM EDT [facility] Base Excess, Venous 5.9(H) -2.0 - 3.0 mmol/L LAB HEMATOLOGY METHOD 03/15/2025 3:39 AM EDT [facility] Bicarbonate, Calculated, Venous 33(H) 22 - 26 mmol/L LAB HEMATOLOGY METHOD 03/15/2025 3:39 AM EDT [facility] Hematocrit, Whole Blood 37.5(L) 40.0 - 51.0 % LAB HEMATOLOGY METHOD 03/15/2025 3:39 AM EDT [facility] Sodium, Whole Blood 141 136 - 145 mmol/L LAB HEMATOLOGY METHOD 03/15/2025 3:39 AM EDT [facility] Potassium, Whole Blood 4.4 3.6 - 4.9 mmol/L LAB HEMATOLOGY METHOD 03/15/2025 3:39 AM EDT [facility] Chloride, Whole Blood 102 97 - 107 mmol/L LAB HEMATOLOGY METHOD 03/15/2025 3:39 AM EDT [facility] Glucose, Whole Blood 88 74 - 99 mg/dL LAB HEMATOLOGY METHOD 03/15/2025 3:39 AM EDT [facility] Lactate, Venous, Whole Blood 0.9 0.5 - 2.2 mmol/L LAB HEMATOLOGY METHOD 03/15/2025 3:39 AM EDT [facility] Ionized Calcium, Whole Blood 4.6 4.6 - 5.1 mg/dL LAB HEMATOLOGY METHOD 03/15/2025 3:39 AM EDT [facility] Blood Venous blood specimen / Unknown Venipuncture / Unknown 03/15/2025 3:27 AM EDT 03/15/2025 3:37 AM EDT Mariah Mcgowan MD LAB BLOOD ORDERABLES Final Result [facility] [address] [place] [address] * (ABNORMAL) Blood gas panel, venous (03/14/2025 10:21 PM EDT) pH, Venous 7.36 7.32 - 7.43 LAB HEMATOLOGY METHOD 03/14/2025 10:33 PM EDT [facility] pCO2, Venous 60(HH) 40 - 55 mmHg LAB HEMATOLOGY METHOD 03/14/2025 10:33 PM EDT [facility] pO2, Venous 49(H) 25 - 40 mmHg LAB HEMATOLOGY METHOD 03/14/2025 10:33 PM EDT [facility] SO2, Measured, Venous 81(H) 65 - 80 % LAB HEMATOLOGY METHOD 03/14/2025 10:33 PM EDT [facility] Base Excess, Venous 6.2(H) -2.0 - 3.0 mmol/L LAB HEMATOLOGY METHOD 03/14/2025 10:33 PM EDT [facility] Bicarbonate, Calculated, Venous 33(H) 22 - 26 mmol/L LAB HEMATOLOGY METHOD 03/14/2025 10:33 PM EDT [facility] Hematocrit, Whole Blood 37.6(L) 40.0 - 51.0 % LAB HEMATOLOGY METHOD 03/14/2025 10:33 PM EDT [facility] Sodium, Whole Blood 140 136 - 145 mmol/L LAB HEMATOLOGY METHOD 03/14/2025 10:33 PM EDT [facility] Potassium, Whole Blood 5.0(H) 3.6 - 4.9 mmol/L LAB HEMATOLOGY METHOD 03/14/2025 10:33 PM EDT [facility] Chloride, Whole Blood 102 97 - 107 mmol/L LAB HEMATOLOGY METHOD 03/14/2025 10:33 PM EDT [facility] Glucose, Whole Blood 94 74 - 99 mg/dL LAB HEMATOLOGY METHOD 03/14/2025 10:33 PM EDT [facility] Lactate, Venous, Whole Blood 0.8 0.5 - 2.2 mmol/L LAB HEMATOLOGY METHOD 03/14/2025 10:33 PM EDT [facility] Ionized Calcium, Whole Blood 4.6 4.6 - 5.1 mg/dL LAB HEMATOLOGY METHOD 03/14/2025 10:33 PM EDT [facility] Blood Venous blood specimen / Unknown Venipuncture / Unknown 03/14/2025 10:21 PM EDT 03/14/2025 10:31 PM EDT us Delfino Aceves MD LAB BLOOD ORDERABLES Final Resul t [facility] [address] [place] [address] * POCT glucose meter (03/14/2025 5:01 PM EDT) [facility] POCT Glucose 96 74 - 99 mg/dL [...] Comment 03/14/2025 5:03 PM EDT [facility] Tap Builder ID Lewis Alejandre Geovanna 025 5:03 PM EDT [facility] LAB Device ID [id number] 03/14/2025 5:03 PM EDT [facility] Specimen Type POC Capillary 03/14/2025 5:03 PM EDT [facility] Blood Capillary blood specimen / Unknown 03/14/2025 5:01 PM EDT 03/14/2025 5:03 PM EDT us Delfino Aceves MD LAB POINT OF CARE TE ST DOCKED DEVICE UNSOLICITED RESULTS Final Result [facility] [address] [place] [id number] * (ABNORMAL) Blood gas panel, venous (03/14/2025 2:19 PM EDT) pH, Venous 7.36 7.32 - 7.43 LAB HEMATOLOGY METHOD 03/14/2025 2:31 PM EDT [facility] pCO2, Venous 56(H) 40 - 55 mmHg LAB HEMATOLOGY METHOD 03/14/2025 2:31 PM EDT [facility] pO2, Venous 49(H) 25 - 40 mmHg LAB HEMATOLOGY METHOD 03/14/2025 2:31 PM EDT [facility] SO2, Measured, Venous 82(H) 65 - 80 % LAB HEMATOLOGY METHOD 03/14/2025 2:31 PM EDT [facility] Base Excess, Venous 4.8(H) -2.0 - 3.0 mmol/L LAB HEMATOLOGY METHOD 03/14/2025 2:31 PM EDT [facility] Bicarbonate, Calculated, Venous 32(H) 22 - 26 mmol/L LAB HEMATOLOGY METHOD 03/14/2025 2:31 PM EDT [facility] Hematocrit, Whole Blood 36.3(L) 40.0 - 51.0 % LAB HEMATOLOGY METHOD 03/14/2025 2:31 PM EDT [facility] Sodium, Whole Blood 138 136 - 145 mmol/L LAB HEMATOLOGY METHOD 03/14/2025 2:31 PM EDT [facility] Potassium, Whole Blood 4.5 3.6 - 4.9 mmol/L LAB HEMATOLOGY METHOD 03/14/2025 2:31 PM EDT [facility] Chloride, Whole Blood 100 97 - 107 mmol/L LAB HEMATOLOGY METHOD 03/14/2025 2:31 PM EDT [facility] Glucose, Whole Blood 85 74 - 99 mg/dL LAB HEMATOLOGY METHOD 03/14/2025 2:31 PM EDT [facility] Lactate, Venous, Whole Blood 1.1 0.5 - 2.2 mmol/L LAB HEMATOLOGY METHOD 03/14/2025 2:31 PM EDT [facility] Ionized Calcium, Whole Blood 4.6 4.6 - 5.1 mg/dL LAB HEMATOLOGY METHOD 03/14/2025 2:31 PM EDT [facility] Blood Venous blood specimen / Unknown Venipuncture / Unknown 03/14/2025 2:19 PM EDT 03/14/2025 2:29 PM EDT us Delfino Aceves MD LAB BLOOD ORDERABLES Final Resul t [facility] [address] [place] [address] * EEG (03/14/2025 1:31 PM EDT) Anatomical [...] De La Paz MD 20 mg at 03/13/252138 cefTRIAXone (Rocephin) 2 g in sodium chloride [...] Intravenous q15 min PRN Lay Clark DO Or glucagon (human recombinant) injection 1 [...] injection 5,000 Units 5,000 Units Subcutaneous q8h COUNTS INCLUDE 234 BEDS AT [facility] Liz Echevarria MD 5,000 Units at 03/14/25 0621 insulin [...] POCT glucose meter (03/14/2025 12:03 PM EDT) [facility] POCT Glucose 90 74 - 99 mg/dL 03/14/2025 12:05 PM EDT [facility] Comment:Accuracy of a [...] 03/14/2025 12:05 PM EDT [facility] Tap Builder ID Lewis Alejandre Geovanna 025 12:05 PM EDT [facility] Device ID [id number] 03/14/2025 12:05 PM EDT [facility] Specimen Type POC Capillary 03/14/2025 12:05 PM EDT [facility] Blood Capillary blood specimen / Unknown 03/14/2025 12:03 PM EDT 03/14/2025 12:05 PM EDT us Delfino Aceves MD LAB POINT OF CARE TE ST DOCKED DEVICE UNSOLICITED RESULTS Final Result Performing Organization Address City/State/[facility] Co de Phone Number [facility] [address] [place] [address] * DE CRITICAL CARE, E/M 30-74 MINUTES (03/14/2025 7:18 [...] the findings and plan as documented. us Delfino Aceves MD IN CLINIC/BEDSIDE ORDERABLES Fin al Result * (ABNORMAL) POCT glucose meter (03/14/2025 6:23 AM EDT) POCT Glucose 103(H) 74 - 99 mg/dL 03/14/2025 6:24 AM EDT [facility] Comment:Accuracy of a glucos e result [...] for testing. Comment 03/14/2025 6:24 AM EDT [facility] Tap Builder ID Heraclio Gomez 03/14/2025 6:24 AM EDT [facility] Device ID [id number] 03/14/2025 6:24 AM EDT [facility] Specimen Type POC Capillary 03/14/2025 6:24 AM EDT [facility] Blood Capillary blood specimen / Unknown 03/14/2025 6:23 AM EDT 03/14/2025 6:24 AM EDT us Gt De La Paz MD LAB POINT OF CARE TE ST DOCKED DEVICE UNSOLICITED RESULTS Final Result [facility] [address] [place] [id number] * MR Head wo IV Contrast (03/14/2025 [...] on 03/14/2025 2:34 AM Mariah Mcgowan MD [facility] MRI PROCEDURES Final R esult * (ABNORMAL) Basic metabolic panel (03/14/2025 12:34 AM EDT) Glucose, Plasma 108(H) 74 - 99 mg/dL 03/14/2025 1:11 AM EDT [facility] BUN, Plasma 40(H) 8 - 23 mg/dL 03/14/2025 1:11 AM EDT [facility] Creatinine, Plasma 2.06(H) 0.70 - 1.20 mg/dL 03/14/2025 1:11 AM EDT [facility] BUN/Creatinine Ratio 03/14/2025 1:11 AM EDT [facility] Sodium, Plasma 136 136 - 145 mmol/L 03/14/2025 1:11 AM EDT [facility] Potassium, Plasma 4.9 3.6 - 4.9 mmol/L 03/14/2025 1:11 AM EDT [facility] Chloride, Plasma 98 97 - 107 mmol/L 03/14/2025 1:11 AM EDT [facility] CO2, Plasma 25 22 - 29 mmol/L 03/14/2025 1:11 AM EDT [facility] Anion Gap 13 6 - 16 mmol/L 03/14/2025 1:11 AM EDT [facility] Total Calcium, Plasma 8.9 8.9 - 10.2 mg/dL 03/14/2025 1:11 AM EDT [facility] eGFRcr 33.6 mL/min/1.7 3m*2 03/14/2025 1:11 AM EDT [facility] Comment:Reported eGFRcr in m L/min/1.73m2 is based the CKD-EPI 2020 equation that does not use a race coefficient. Blood Venous blood specimen / Unknown Venipuncture / Unknown 03/14/2025 12:34 AM EDT 03/14/2025 12:44 AM EDT us Gt De La Paz MD LAB BLOOD ORDERABLES Final Res ult [facility] [address] [place] [address] * (ABNORMAL) CBC W/O Differential (03/14/2025 12:34 AM EDT) WBC Count 8.78 3.70 - 10.30 10*3/uL LAB HEMATOLOGY METHOD 03/14/2025 1:01 AM EDT [facility] RBC Count 4.11(L) 4.60 - 6.10 10*6/uL LAB HEMATOLOGY METHOD 03/14/2025 1:01 AM EDT [facility] HGB 11.3(L) 13.7 - 17.5 g/dL LAB HEMATOLOGY METHOD 03/14/2025 1:01 AM EDT [facility] HCT 34.2(L) 40.0 - 51.0 % LAB HEMATOLOGY METHOD 03/14/2025 1:01 AM EDT [facility] Platelet Count 192 155 - 369 10*3/uL LAB HEMATOLOGY METHOD 03/14/2025 1:01 AM EDT [facility] MCV 83 79 - 98 fL LAB HEMATOLOGY METHOD 03/14/2025 1:01 AM EDT [facility] MCH 27.5 26.0 - 32.0 pg LAB HEMATOLOGY METHOD 03/14/2025 1:01 AM EDT [facility] MCHC 33.0 30.7 - 35.5 g/dL LAB HEMATOLOGY METHOD 03/14/2025 1:01 AM EDT [facility] RDW 16.8(H) 11.5 - 14.5 % LAB HEMATOLOGY METHOD 03/14/2025 1:01 AM EDT [facility] MPV 9.3 8.8 - 12.5 fL LAB HEMATOLOGY METHOD 03/14/2025 1:01 AM EDT [facility] nRBC 0.0 <=0.0 per 100 WBCs LAB HEMATOLOGY METHOD 03/14/2025 1:01 AM EDT [facility] Blood Venous blood specimen / Unknown Venipuncture / Unknown 03/14/2025 12:34 AM EDT 03/14/2025 12:47 AM EDT us Gt De La Paz MD LAB BLOOD ORDERABLES Final Res ult [facility] [address] [place] [address] * (ABNORMAL) Blood gas panel, venous (03/14/2025 12:34 AM EDT) pH, Venous 7.47(H) 7.32 - 7.43 LAB HEMATOLOGY METHOD 03/14/2025 12:45 AM EDT [facility] pCO2, Venous 40 40 - 55 mmHg LAB HEMATOLOGY METHOD 03/14/2025 12:45 AM EDT [facility] pO2, Venous 90(H) 25 - 40 mmHg LAB HEMATOLOGY METHOD 03/14/2025 12:45 AM EDT [facility] SO2, Measured, Venous 99(H) 65 - 80 % LAB HEMATOLOGY METHOD 03/14/2025 12:45 AM EDT [facility] Base Excess, Venous 4.9(H) -2.0 - 3.0 mmol/L LAB HEMATOLOGY METHOD 03/14/2025 12:45 AM EDT [facility] Bicarbonate, Calculated, Venous 29(H) 22 - 26 mmol/L LAB HEMATOLOGY METHOD 03/14/2025 12:45 AM EDT [facility] Hematocrit, Whole Blood 34.1(L) 40.0 - 51.0 % LAB HEMATOLOGY METHOD 03/14/2025 12:45 AM EDT [facility] Sodium, Whole Blood 135(L) 136 - 145 mmol/L LAB HEMATOLOGY METHOD 03/14/2025 12:45 AM EDT [facility] Potassium, Whole Blood 4.6 3.6 - 4.9 mmol/L LAB HEMATOLOGY METHOD 03/14/2025 12:45 AM EDT [facility] Chloride, Whole Blood 101 97 - 107 mmol/L LAB HEMATOLOGY METHOD 03/14/2025 12:45 AM EDT [facility] Glucose, Whole Blood 112(H) 74 - 99 mg/dL LAB HEMATOLOGY METHOD 03/14/2025 12:45 AM EDT [facility] Lactate, Venous, Whole Blood 1.5 0.5 - 2.2 mmol/L LAB HEMATOLOGY METHOD 03/14/2025 12:45 AM EDT [facility] Ionized Calcium, Whole Blood 4.6 4.6 - 5.1 mg/dL LAB HEMATOLOGY METHOD 03/14/2025 12:45 AM EDT [facility] Blood Venous blood specimen / Unknown Venipuncture / Unknown 03/14/2025 12:34 AM EDT 03/14/2025 12:43 AM EDT Mariah Mcgowan MD LAB BLOOD ORDERABLES Final Result [facility] [address] [place] [address] * Triglycerides (03/14/2025 12:34 AM EDT) Triglycerides, Plasma 114 <150 mg/dL 03/14/2025 1:11 AM EDT [facility] Comment: Triglyceride Reference Range (age >17 years): Desirable: <150 mg/dL Borderline high: 150 to 199 mg/dL High: 200 to 499 mg/dL Very high: >499 mg/dL Increased risk of pancreatitis: >1000 mg/dL Fasting greater than or equal to 12 hours? Yes 03/14/2025 1:11 AM EDT [facility] Blood Venous blood specimen / Unknown Venipuncture / Unknown 03/14/2025 12:34 AM EDT 03/14/2025 12:44 AM EDT us Staci Castro LAB BLOOD ORDERABLES Final Resul t [facility] [address] [place] [address] * (ABNORMAL) POCT glucose meter (03/14/2025 12:30 AM EDT) [facility] POCT Glucose 118(H) 74 - 99 [...] Comment 03/14/2025 12:32 AM EDT [facility] Tap Builder ID Heraclio Gomez 03/14/2025 12:32 AM EDT [facility] LAB Device ID [id number] 03/14/2025 12:32 AM EDT [facility] Specimen Type POC Venous 03/14/2025 12:32 AM EDT [facility] Blood Venous blood specimen / Unknown 03/14/2025 12:30 AM EDT 03/14/2025 12:32 AM EDT us Gt De La Paz MD LAB POINT OF CARE TE ST DOCKED DEVICE UNSOLICITED RESULTS Final Result [facility] [address] [place] [address] * (ABNORMAL) POCT glucose meter (03/13/2025 6:25 PM EDT) [facility] POCT Glucose 129(H) 74 - 99 [...] Comment 03/13/2025 6:26 PM EDT [facility] Tap Builder ID Leeanna Linda 03/13/2025 6:26 PM EDT [facility] Device ID [id number] 03/13/2025 6:26 PM EDT [facility] Specimen Type POC Capillary 03/13/2025 6:26 PM EDT [facility] Blood Capillary blood specimen / Unknown 03/13/2025 6:25 PM EDT 03/13/2025 6:26 PM EDT Gt De La Paz MD LAB POINT OF CARE TE ST DOCKED DEVICE UNSOLICITED RESULTS Final Result [facility] [address] [place] [address] * (ABNORMAL) POCT glucose meter (03/13/2025 12:14 PM EDT) [facility] POCT Glucose 123(H) 74 - 99 [...] 03/13/2025 12:16 PM EDT [facility] Tap Builder ID Leeanna Linda 03/13/2025 12:16 PM EDT [facility] Device ID [id number] 03/13/2025 12:16 PM EDT [facility] Specimen Type POC Capillary 03/13/2025 12:16 PM EDT [facility] Blood Capillary blood specimen / Unknown 03/13/2025 12:14 PM EDT 03/13/2025 12:16 PM EDT us Gt De La Paz MD LAB POINT OF CARE TE ST DOCKED DEVICE UNSOLICITED RESULTS Final Result Performing Organization Address [facility] Co de Phone Number [facility] [address] [place] [address] * Body fluid, cytospin, pathologist interpretation (03/13/2025 11:34 AM EDT) Specimen Type Bronchoalveolar Lavage LAB HEMATOLOGY METHOD 03/14/2025 3:40 PM EDT [facility] Specimen Source, Body Fluid Lung, Right Middle Lobe LAB HEMATOLOGY METHOD 03/14/2025 3:40 PM EDT [facility] Clinical Diagnosis, Body Fluid Concern for R sided post-obstructive pneumonia in setting of pulmonary mass LAB HEMATOLOGY METHOD 03/14/2025 3:40 PM EDT [facility] Interpretation , Body Fluid No evidence of malignancy Predominantly alveolar macrophages Mild acute inflammatory cells A resident was involved in the service. I attest I examined the relevant preparations for the specimens and confirmed the diagnosis or interpretation. 03/14/2025 3:40 PM EDT [facility] Pathologist Signature, Body Fluid 03/14/2025 3:40 PM EDT [facility] Comment:Reviewed by: Mónica colin MD LAB CP ASR DISCLAIMER Yes 03/14/2025 3:40 PM EDT [facility] Bronchoalveolar Lavage Structure of middle lobe of right lung / Unknown 03/13/2025 11:34 AM EDT 03/13/2025 11:46 AM EDT us Gt De La Paz MD LAB BODY FLUIDS AND STOOLS ORD ERABLES Final Result Performing Organization Address City/[facility]/ZIP Co de Phone Number [facility] [address] [place] [address] * BAL Comprehensive Respiratory Panel by PCR (03/13/2025 11:34 AM EDT) BAL Comprehensive PCR Result Not Detected for all analytes Not Detected for all analytes 03/13/2025 1:44 PM EDT [facility] Bronchoalveolar Lavage Bronchoalveolar lavage fluid specimen / Unknown 03/13/2025 11:34 AM EDT 03/13/2025 1:08 PM EDT Narrative [facility] - 03/13/2025 1:44 PM [...] developed and its performance characteristics determined by [facility] as appropriate for clinical purposes. This assay has not been cleared or approved by the FDA, but is performed in a CLIA regulated laboratory that is performed in a CLIA regulated laboratory that is qualified to perform high-complexity testing. [facility] is certified under the Clinical Laboratory Improvement Amendments of 1988 (CLIA-88) as qualified to perform high complexity clinical laboratory testing. us Gt De La Paz MD LAB MICROBIOLOGY - GENERAL ORD ERABLES Final Result [facility] [address] [place] [address] * Pneumocystis Jirovecii by PCR (03/13/2025 11:34 AM EDT) P. Jirovecii by PCR Not Detected 03/17/2025 12:16 AM EDT [facility] ([facility]) P. Jirovecii Source BAL 03/17/2025 12:16 AM EDT [facility] ([facility]) Bronchoalveolar Lavage Bronchoalveolar lavage fluid specimen / Unknown 03/13/2025 11:34 AM EDT 03/13/2025 11:46 AM EDT Narrative [facility] ([facility]) - 03/17/2025 12:16 AM EDT NOT DETECTED - A negative result does not rule out the presence of PCR inhibitors in the patient specimen or assay specific nucleic acid in concentrations below the level of detection by the assay. This test was developed and its performance characteristics determined by [facility]. It has not been cleared or approved by the [place] Food and Drug Administration. This test was performed in a CLIA certified laboratory and is intended for clinical purposes. Performed By: [facility] [address] [place] [address] [employer] Mixing Operator: Saqib Cortes MD, PhD CLIA Number: [id number] us Gt De La Paz MD LAB REF LAB BLOOD AND FLUID OR D Final Result [facility] ([place]) [address] [place] [address] * Aspergillus galactomannan antigen (03/13/2025 11:34 AM EDT) [facility] Aspergillus galactomannan EIA ([facility]) 0.051 <0.500 03/15/2025 6:38 PM EDT [facility] ([facility]) Comment: Interpretation: Patients with an index value [...] Aspergillus Galactomannan EIA is a product of [employer] and is FDA approved for in vitro diagnostic use. Testing Performed at: [facility] [id number] [place] [address], [address] [place] [address] Insurance Commissioner: Dominick Gonsalez, PhD [facility] ([facility]) [place] # [id number] FLAG Interpretation: A = Abnormal, H = High, L = Low Bronchoalveolar Lavage Bronchoalveolar lavage fluid specimen / Unknown 03/13/2025 11:34 AM EDT 03/13/2025 11:46 AM EDT Narrative [facility] ([facility]) - 03/15/2025 6:38 PM EDT Release to patient in [facility]->Immediate us Gt De La Paz MD LAB BODY FLUIDS AND STOOLS ORD ERABLES Final Result [facility] ([facility]) * Fungal Culture, Respiratory and ADAIR (03/13/2025 11:34 AM EDT) Culture No Fungal Growth at 6 Weeks 04/24/2025 10:12 AM EDT [facility] ADAIR No fungal elements seen 04/24/2025 10:12 AM EDT [facility] Bronchoalveolar Lavage Bronchoalveolar lavage fluid specimen / Unknown 03/13/2025 11:34 AM EDT 03/13/2025 1:08 PM EDT us Gt De La Paz MD LAB MICROBIOLOGY - GENERAL ORD ERABLES Final Result [facility] [address] [place] [address] * Non-Gynecologic Cytology, Fluid (03/13/2025 11:34 AM EDT) Case Report Cytology Case: [id number] Authorizing Provider: Gt De La Paz MD Collected: 03/13/2025 1134 Ordering Location: [facility] Inpatient Received: 03/14/2025 0828 Pathologist: Kai Gilbert MD Specimen: Bronchial Washing, Right Middle Lobe, BRONCHIAL WASHING, RIGHT MIDDLE LOBE 03/14/2025 5:45 PM EDT [facility] Final Diagnosis A. BRONCHIAL WASHING, RIGHT MIDDLE LOBE - NO EVIDENCE OF MALIGNANCY. NO VIRAL CHANGES IDENTIFIED, PREDOMINANTLY MACROPHAGES, GMS STAIN IS NEGATIVE FOR ORGANISMS. 03/14/2025 5:45 PM EDT [facility] at 1745 EDT Clinical History possible malignancy 03/14/2025 5:45 PM EDT [facility] Previous Cancer No 5:45 PM EDT [facility] Gross Description A. BRONCHIAL WASHING, RIGHT MIDDLE LOBE 20 ml's hazy fluid processed as thin prep and GMS 03/14/2025 5:45 PM EDT [facility] Non-Gynecologica l (Select Specimen Source) Specimen from lung obtained by bronchial washing procedure / Unknown 03/13/2025 11:34 AM EDT 03/14/2025 8:28 AM EDT us Gt De La Paz MD LAB CYTOLOGY ORDERABLES Final Result [facility] [address] [place] [address] * Bronchoalveolar Lavage Cell Count W/ Diff (03/13/2025 11:34 AM EDT) Neutrophils %, BAL 10 % LAB HEMATOLOGY METHOD 03/13/2025 5:20 PM EDT [facility] Lymphocytes %, BAL 0 % LAB HEMATOLOGY METHOD 03/13/2025 5:20 PM EDT [facility] Monocytes/Macrop hages %, BAL 84 % LAB HEMATOLOGY METHOD 03/13/2025 5:20 PM EDT [facility] Eosinophils %, BAL 0 % LAB HEMATOLOGY METHOD 03/13/2025 5:20 PM EDT [facility] Basophils %, BAL 0 % LAB HEMATOLOGY METHOD 03/13/2025 5:20 PM EDT [facility] Squamous Cells %, BAL 0 % LAB HEMATOLOGY METHOD 03/13/2025 5:20 PM EDT [facility] Bronchial Cells %, BAL 6 % LAB HEMATOLOGY METHOD 03/13/2025 5:20 PM EDT [facility] Other Cells %, BAL 0 % LAB HEMATOLOGY METHOD 03/13/2025 5:20 PM EDT [facility] Comment, BAL None LAB HEMATOLOGY METHOD 03/13/2025 5:20 PM EDT [facility] Comment:This is an appended report. These results have been appended to a previously preliminary verified report. Total Nucleated Cell Count, BAL 272 uL LAB HEMATOLOGY METHOD 03/13/2025 5:20 PM EDT [facility] Comment:Clot present, may af fect results. Test performed by manual method. Bronchoalveolar Lavage Structure of middle lobe of right lung / Unknown 03/13/2025 11:34 AM EDT 03/13/2025 11:46 AM EDT us Gt De La Paz MD LAB BODY FLUIDS AND STOOLS ORD ERABLES Final Result Performing Organization Address [facility] Co de Phone Number [facility] [address] [place] [address] * Quantitative BAL/PAL/Bronch Wash Culture and Gram StainBronchoalveolar Lavage, Right Middle Lobe (03/13/2025 11:34 AM EDT) Culture No growth at day 2 2024 8:18 AM EDT [facility] Gram Stain Result No polymorphonuclear leukocytes seen 03/15/2025 8:18 AM EDT [facility] Gram Stain Result No organisms seen 03/15/2025 8:18 AM EDT [facility] Bronchoalveolar Lavage Bronchoalveolar lavage fluid specimen / Unknown 03/13/2025 11:34 AM EDT 03/13/2025 1:08 PM EDT us Gt De La Paz MD LAB MICROBIOLOGY - GENERAL ORD ERABLES Final Result Performing Organization Address City/[facility]/ZIP Co de Phone Number [facility] [address] [place] [address] * BEDSIDE BRONCHOSCOPY (03/13/2025 10:30 AM EDT) Narrative Gt De La Paz MD - 03/13/2025 10:30 AM EDT Gt De La Paz MD 03/14/2025 9:30 AM Bronchoscopy Performed by: Gt De La Paz MD Authorized by: Gt De La Paz MD us Gt De La Paz MD IN CLINIC/BEDSIDE ORDERABLES E dited Result - Final * DE CRITICAL CARE, E/M 30-74 MINUTES (03/13/2025 7:06 [...] the findings and plan as documented. us Gt De La Paz MD IN CLINIC/BEDSIDE ORDERABLES F inal Result * (ABNORMAL) POCT glucose meter (03/13/2025 6:22 AM EDT) [facility] POCT Glucose 174(H) 74 - 99 mg/dL 03/13/2025 6:24 AM EDT [facility] Comment:Accuracy of a glucos e result [...] for testing. Comment 03/13/2025 6:24 AM EDT [facility] Tap Builder ID Heraclio Gomez 03/13/2025 6:24 AM EDT [facility] Device ID [id number] 03/13/2025 6:24 AM EDT [facility] Specimen Type POC Capillary 03/13/2025 6:24 AM EDT [facility] Blood Capillary blood specimen / Unknown 03/13/2025 6:22 AM EDT 03/13/2025 6:24 AM EDT Mariah Mcgowan MD LAB POINT OF CARE TEST DOCKED DEVICE UNSOLICITED RESULTS Final Result Performing Organization Address City/[facility] Co de Phone Number [facility] [address] [place] [address] * (ABNORMAL) POCT glucose meter (03/13/2025 12:58 AM EDT) POCT Glucose 167(H) 74 - 99 mg/dL [...] for testing. Comment 03/13/2025 12:59 AM EDT [facility] Tap Builder ID Leigh Vogt 025 12:59 AM EDT [facility] Device ID [id number] 03/13/2025 12:59 AM EDT [facility] Specimen Type POC Venous 03/13/2025 12:59 AM EDT [facility] Blood Venous blood specimen / Unknown 03/13/2025 12:58 AM EDT 03/13/2025 12:59 AM EDT Mariah Mcgowan MD LAB POINT OF CARE TEST DOCKED DEVICE UNSOLICITED RESULTS Final Result Performing Organization Address City/[facility]/ZIP Co de Phone Number [facility] [address] [place] [address] * LACTIC ACID, VENOUS (03/13/2025 12:57 AM EDT) Lactate, Venous, Whole Blood 1.6 0.5 - 2.2 mmol/L LAB HEMATOLOGY METHOD 03/13/2025 1:12 AM EDT [facility] Blood Venous blood specimen / Unknown Venipuncture / Unknown 03/13/2025 12:57 AM EDT 03/13/2025 1:09 AM EDT us Mariah Mcgowan MD LAB BLOOD ORDERABLES Final Result [facility] [address] [place] [address] * (ABNORMAL) Comprehensive metabolic panel (03/13/2025 12:57 AM EDT) Glucose, Plasma 148(H) 74 - 99 mg/dL 03/13/2025 1:41 AM EDT [facility] BUN, Plasma 31(H) 8 - 23 mg/dL 03/13/2025 1:41 AM EDT [facility] Creatinine, Plasma 2.10(H) 0.70 - 1.20 mg/dL 03/13/2025 1:41 AM EDT [facility] BUN/Creatinine Ratio 15 03/13/2025 1:41 AM EDT [facility] Sodium, Plasma 136 136 - 145 mmol/L 03/13/2025 1:41 AM EDT [facility] [facility] Potassium, Plasma 4.5 3.6 - 4.9 mmol/L 03/13/2025 1:41 AM EDT [facility] Chloride, Plasma 99 97 - 107 mmol/L 03/13/2025 1:41 AM EDT [facility] CO2, Plasma 25 22 - 29 mmol/L 03/13/2025 1:41 AM EDT [facility] Anion Gap 12 6 - 16 mmol/L 03/13/2025 1:41 AM EDT [facility] Total Calcium, Plasma 9.2 8.9 - 10.2 mg/dL 03/13/2025 1:41 AM EDT [facility] Total Protein 6.5 6.3 - 7.9 g/dL 03/13/2025 1:41 AM EDT [facility] Albumin, Plasma 3.9 3.5 - 5.2 g/dL 03/13/2025 1:41 AM EDT [facility] AST, Plasma 16 10 - 50 U/L 03/13/2025 1:41 AM EDT [facility] ALT, Plasma 10 10 - 50 U/L 03/13/2025 1:41 AM EDT [facility] Alkaline Phosphatase, Plasma 77 40 - 115 U/L 03/13/2025 1:41 AM EDT [facility] Total Bilirubin, Plasma 0.3 0.2 - 1.1 mg/dL 03/13/2025 1:41 AM EDT [facility] eGFRcr 32.8 mL/min/1.7 3m*2 03/13/2025 1:41 AM EDT [facility] Comment:Reported eGFRcr in m L/min/1.73m2 is based the CKD-EPI 2020 equation that does not use a race coefficient. Blood Venous blood specimen / Unknown Venipuncture / Unknown 03/13/2025 12:57 AM EDT 03/13/2025 1:12 AM EDT Mariah Mcgwoan MD LAB BLOOD ORDERABLES Final Result [facility] [address] [place] [address] * (ABNORMAL) Blood gas panel, venous (03/13/2025 12:57 AM EDT) pH, Venous 7.36 7.32 - 7.43 LAB HEMATOLOGY METHOD 03/13/2025 1:12 AM EDT [facility] pCO2, Venous 49 40 - 55 mmHg LAB HEMATOLOGY METHOD 03/13/2025 1:12 AM EDT [facility] pO2, Venous 66(H) 25 - 40 mmHg LAB HEMATOLOGY METHOD 03/13/2025 1:12 AM EDT [facility] SO2, Measured, Venous 95(H) 65 - 80 % LAB HEMATOLOGY METHOD 03/13/2025 1:12 AM EDT [facility] Base Excess, Venous 1.4 -2.0 - 3.0 mmol/L LAB HEMATOLOGY METHOD 03/13/2025 1:12 AM EDT [facility] Bicarbonate, Calculated, Venous 28(H) 22 - 26 mmol/L LAB HEMATOLOGY METHOD 03/13/2025 1:12 AM EDT [facility] Hematocrit, Whole Blood 35.6(L) 40.0 - 51.0 % LAB HEMATOLOGY METHOD 03/13/2025 1:12 AM EDT [facility] Sodium, Whole Blood 136 136 - 145 mmol/L LAB HEMATOLOGY METHOD 03/13/2025 1:12 AM EDT [facility] Potassium, Whole Blood 4.3 3.6 - 4.9 mmol/L LAB HEMATOLOGY METHOD 03/13/2025 1:12 AM EDT [facility] Chloride, Whole Blood 101 97 - 107 mmol/L LAB HEMATOLOGY METHOD 03/13/2025 1:12 AM EDT [facility] Glucose, Whole Blood 148(H) 74 - 99 mg/dL LAB HEMATOLOGY METHOD 03/13/2025 1:12 AM EDT [facility] Lactate, Venous, Whole Blood 1.6 0.5 - 2.2 mmol/L LAB HEMATOLOGY METHOD 03/13/2025 1:12 AM EDT [facility] Ionized Calcium, Whole Blood 4.8 4.6 - 5.1 mg/dL LAB HEMATOLOGY METHOD 03/13/2025 1:12 AM EDT [facility] Blood Venous blood specimen / Unknown Venipuncture / Unknown 03/13/2025 12:57 AM EDT 03/13/2025 1:09 AM EDT Mariah Mcgowan MD LAB BLOOD ORDERABLES Final Result [facility] [address] [place] [address] * Phosphorus, Plasma (03/13/2025 12:57 AM EDT) Phosphorus, Plasma 2.8 2.5 - 4.5 mg/dL 03/13/2025 1:41 AM EDT [facility] Blood Venous blood specimen / Unknown Venipuncture / Unknown 03/13/2025 12:57 AM EDT 03/13/2025 1:12 AM EDT Mariah Mcgowan MD LAB BLOOD ORDERABLES Final Result [facility] [address] [place] [address] * (ABNORMAL) Magnesium, Plasma (03/13/2025 12:57 AM EDT) Magnesium, Plasma 1.7(L) 1.9 - 2.4 mg/dL 03/13/2025 1:41 AM EDT [facility] Blood Venous blood specimen / Unknown Venipuncture / Unknown 03/13/2025 12:57 AM EDT 03/13/2025 1:12 AM EDT us Mariah Mcgowan MD LAB BLOOD ORDERABLES Final Result Performing Organization Address [facility] Co de Phone Number [facility] [address] [place] [address] * Ionized calcium, serum (03/13/2025 12:57 AM EDT) Ionized Calcium, Serum 4.9 4.6 - 5.3 mg/dL LAB HEMATOLOGY METHOD 03/13/2025 1:45 AM EDT [facility] Blood Venous blood specimen / Unknown Venipuncture / Unknown 03/13/2025 12:57 AM EDT 03/13/2025 1:12 AM EDT Mariah Mcgowan MD LAB BLOOD ORDERABLES Final Result Performing Organization Address [facility] de Phone Number [facility] [address] [place] [address] * (ABNORMAL) CBC W/O Differential (03/13/2025 12:57 AM EDT) WBC Count 8.81 3.70 - 10.30 10*3/uL LAB HEMATOLOGY METHOD 03/13/2025 1:27 AM EDT [facility] RBC Count 4.33(L) 4.60 - 6.10 10*6/uL LAB HEMATOLOGY METHOD 03/13/2025 1:27 AM EDT [facility] HGB 12.0(L) 13.7 - 17.5 g/dL LAB HEMATOLOGY METHOD 03/13/2025 1:27 AM EDT [facility] HCT 37.6(L) 40.0 - 51.0 % LAB HEMATOLOGY METHOD 03/13/2025 1:27 AM EDT [facility] Platelet Count 175 155 - 369 10*3/uL LAB HEMATOLOGY METHOD 03/13/2025 1:27 AM EDT [facility] MCV 87 79 - 98 fL LAB HEMATOLOGY METHOD 03/13/2025 1:27 AM EDT [facility] MCH 27.7 26.0 - 32.0 pg LAB HEMATOLOGY METHOD 03/13/2025 1:27 AM EDT [facility] MCHC 31.9 30.7 - 35.5 g/dL LAB HEMATOLOGY METHOD 03/13/2025 1:27 AM EDT [facility] RDW 16.9(H) 11.5 - 14.5 % LAB HEMATOLOGY METHOD 03/13/2025 1:27 AM EDT [facility] MPV 9.4 8.8 - 12.5 fL LAB HEMATOLOGY METHOD 03/13/2025 1:27 AM EDT [facility] nRBC 0.0 <=0.0 per 100 WBCs LAB HEMATOLOGY METHOD 03/13/2025 1:27 AM EDT [facility] Blood Venous blood specimen / Unknown Venipuncture / Unknown 03/13/2025 12:57 AM EDT 03/13/2025 1:15 AM EDT Mariah Mcgowan MD LAB BLOOD ORDERABLES Final Result Performing Organization Address [facility] Co de Phone Number [facility] [address] [place] [address] * Urinalysis Microscopic Examination (03/12/2025 11:05 PM EDT) Urine Urine specimen obtained by clean catch procedure / Unknown Non-blood Collection / Unknown 03/12/2025 11:05 PM EDT 03/12/2025 11:11 PM EDT Mariah Mcgowan MD LAB URINE ORDERABLES Final Result Performing Organization Address City/[facility] Co de Phone Number [facility] [address] [place] [address] * (ABNORMAL) Opiates Confirm Urine (03/12/2025 11:05 PM EDT) Codeine <50 <50 ng/mL 03/15/2025 5:06 PM EDT [facility] Codeine Glucuronide <50 <50 ng/mL 03/15/2025 5:06 PM EDT [facility] Desmethyl Tramadol <50 <50 ng/mL 03/15/2025 5:06 PM EDT [facility] EDDP - Methadone Metabolite <50 <50 ng/mL 03/15/2025 5:06 PM EDT [facility] Hydrocodone 460(H) <50 ng/mL 03/15/2025 5:06 PM EDT [facility] Hydromorphone 177(H) <50 ng/mL 03/15/2025 5:06 PM EDT [facility] Hydromorphone Glucuronide >1,000(H) <50 ng/mL 03/15/2025 5:06 PM EDT [facility] Comment:Metabolite of Hydrom orphone Meperidine <50 <50 ng/mL 03/15/2025 5:06 PM EDT [facility] Methadone <50 <50 ng/mL 03/15/2025 5:06 PM EDT [facility] 6 Monoacetyl morphine <10 <10 ng/mL 03/15/2025 5:06 PM EDT [facility] Morphine <50 <50 ng/mL 03/15/2025 5:06 PM EDT [facility] Morphine Glucuronide <50 <50 ng/mL 03/15/2025 5:06 PM EDT [facility] Comment:Metabolite of Morphi ne Naloxone <50 <50 ng/mL 03/15/2025 5:06 PM EDT [facility] Naloxone Glucuronide <50 <50 ng/mL 03/15/2025 5:06 PM EDT [facility] Comment:Metabolite of Naloxo ne Normeperidine <50 <50 ng/mL 03/15/2025 5:06 PM EDT [facility] Tramadol <50 <50 ng/mL 03/15/2025 5:06 PM EDT [facility] Urine Urine specimen obtained by clean catch procedure / Unknown Non-blood Collection / Unknown 03/12/2025 11:05 PM EDT 03/12/2025 11:11 PM EDT [facility] - 03/15/2025 5:06 PM EDT Drug analysis is confirmed by LC-MS/MS (LC Tandem Mass Spectrometry) on Urine specimens. This test was developed and its performance characteristics determined by [facility]. It has not been cleared or approved by the FDA. The laboratory is regulated under CLIA as qualified to perform high-complexity testing. This test is used for clinical purposes. Testing is performed at the [facility], Special [facility] Laboratory. Mariah Mcgowan MD LAB URINE ORDERABLES Final Result Performing Organization Address [facility] Co de Phone Number [facility] [address] [place] [address] * (ABNORMAL) Fentanyl Urine Confirm (03/12/2025 11:05 PM EDT) Fentanyl 3(H) <1 ng/mL 03/15/2025 5:06 PM EDT [facility] Norfentanyl 5(H) <2 ng/mL 03/15/2025 5:06 PM EDT [facility] Urine Urine specimen obtained by clean catch procedure / Unknown Non-blood Collection / Unknown 03/12/2025 11:05 PM EDT 03/12/2025 11:11 PM EDT Narrative [facility] - 03/15/2025 5:06 PM EDT Drug analysis is confirmed by LC-MS/MS (LC Tandem Mass Spectrometry) on Urine specimens. This test was developed and its performance characteristics determined by [facility]. It has not been cleared or approved by the FDA. The laboratory is regulated under CLIA as qualified to perform high-complexity testing. This test is used for clinical purposes. Testing is performed at the [facility], [facility]. Mariah Mcgowan MD LAB URINE ORDERABLES Final Result Performing Organization Address [facility] Co de Phone Number [facility] [address] [place] [address] * (ABNORMAL) Urinalysis with reflex microscopic (Culture NOT Included) (03/12/2025 11:05 PM EDT) Color, Urine Yellow LAB URINALYSIS - AUTOMATED METHOD 03/13/2025 12:17 AM T [facility] Clarity, Urine Clear LAB URINALYSIS - AUTOMATED METHOD 03/13/2025 12:17 AM [facility] Spec [place], Urine >1.030(H) 1.005 - 1.030 LAB URINALYSIS - AUTOMATED METHOD 03/13/2025 12:17 AM [facility] pH, Urine 7.0 5.0 - 8.0 LAB URINALYSIS - AUTOMATED METHOD 03/13/2025 12:17 AM T [facility] Protein, Urine 30(A) Negative mg/dL LAB URINALYSIS - AUTOMATED METHOD 03/13/2025 12:17 AM [facility] Glucose, Urine 100(A) Negative mg/dL LAB URINALYSIS - AUTOMATED METHOD 03/13/2025 12:17 AM [facility] Ketones, Urine Negative Negative mg/dL LAB URINALYSIS - AUTOMATED METHOD 03/13/2025 12:17 AM T [facility] Blood, Urine Large(A) Negative LAB URINALYSIS - AUTOMATED METHOD 03/13/2025 12:17 AM [facility] Bilirubin, Urine Negative Negative LAB URINALYSIS - AUTOMATED METHOD 03/13/2025 12:17 AM [facility] Urobilinogen, Urine 0.2 0.2 to 1.0 mg/dL LAB URINALYSIS - AUTOMATED METHOD 03/13/2025 12:17 AM [facility] Leukocytes, Urine Moderate(A) Negative LAB URINALYSIS - AUTOMATED METHOD 03/13/2025 12:17 AM [facility] Nitrite, Urine Negative Negative LAB URINALYSIS - AUTOMATED METHOD 03/13/2025 12:17 AM [facility] RBC, Urine >50(A) 0 to 3 /HPF LAB URINALYSIS - AUTOMATED METHOD 03/13/2025 12:17 AM [facility] WBC, Urine >50(A) 0 to 5 /HPF LAB URINALYSIS - AUTOMATED METHOD 03/13/2025 12:17 AM [facility] Squamous Epithelial Cells 0 - 2 0 to 5 /HPF LAB URINALYSIS - AUTOMATED METHOD 03/13/2025 12:17 AM [facility] Hyaline Casts 0 - 2 0 to 5 /LPF LAB URINALYSIS - AUTOMATED METHOD 03/13/2025 12:17 AM EDT [facility] Bacteria, Urine Negative Negative LAB URINALYSIS - AUTOMATED METHOD 03/13/2025 12:17 AM EDT [facility] Urine Urine specimen obtained by clean catch procedure / Unknown Non-blood Collection / Unknown 03/12/2025 11:05 PM EDT 03/12/2025 11:11 PM EDT us Mariah Mcgowan MD LAB URINE ORDERABLES Final Result [facility] [address] [place] [address] * Drug Abuse Screen Urine (03/12/2025 11:05 PM EDT) Amphetamine Screen Urine Negative Cutoff: 500 ng/mL 03/12/2025 11:44 PM EDT [facility] Benzodiazepines Screen Urine Negative Cutoff: 200 ng/mL 03/12/2025 11:44 PM EDT [facility] Cannabinoid Screen Urine Negative Cutoff: 50 ng/mL 03/12/2025 11:44 PM EDT [facility] Cocaine Screen Urine Negative Cutoff: 300 ng/mL 03/12/2025 11:44 PM EDT [facility] Barbiturate Screen Urine Negative Cutoff: 200 ng/mL 03/12/2025 11:44 PM EDT [facility] Opiate Screen Urine Presumptive positive. Confirmation by LC-MS/MS to follow. Cutoff: 300 ng/mL 03/12/2025 11:44 PM EDT [facility] Methadone Screen Urine Negative Cutoff: 300 ng/mL 03/12/2025 11:44 PM EDT [facility] Buprenorphine Screen Urine Negative Cutoff: 10 ng/mL 03/12/2025 11:44 PM EDT [facility] Fentanyl Screen Urine Presumptive positive. Confirmation by LC-MS/MS to follow. Cutoff: 1 ng/mL 03/12/2025 11:44 PM EDT [facility] Oxycodone Screen Urine Negative Cutoff: 100 ng/mL 03/12/2025 11:44 PM EDT [facility] Urine Urine specimen obtained by clean catch procedure / Unknown Non-blood Collection / Unknown 03/12/2025 11:05 PM EDT 03/12/2025 11:11 PM EDT Mariah Mcgowan MD LAB URINE ORDERABLES Final Result Performing Organization Address [facility] Co de Phone Number [facility] [address] [place] [address] * Multi Drug Resistance Test (03/12/2025 10:18 PM EDT) Culture No growth at day 1 03/14/2025 8:08 AM EDT [facility] Swab (Nares and Jazmyn Rectal) Non-blood Collection / Unknown 03/12/2025 10:18 PM EDT 03/12/2025 10:22 PM EDT Narrative [facility] - 03/14/2025 8:08 AM EDT This test was developed and its performance characteristics determined by the [facility]. Although the media is FDA-approved, it is not FDA-approved for all specimen types submitted. The FDA has determined that such clearance or approval is not necessary. This test is used for surveillance purposes. It should not be regarded as investigational or for research. The [facility] is certified under the Clinical Laboratory Improvement Amendments of 1988 (CLIA-88) as qualified to perform high complexity clinical laboratory testing. Mariah Mcgowan MD LAB MICROBIOLOGY - GENERAL ORDERABLES Final Result [facility] [address] [place] [address] * Cathy auris Surveillance by PCR (03/12/2025 10:18 PM EDT) Cathy auris PCR Result Not Detected Not Detected 03/14/2025 6:39 AM EDT [facility] Swab (Axilla and Groin) Non-blood Collection / Unknown 03/12/2025 10:18 PM EDT 03/12/2025 10:22 PM EDT Narrative [facility] - 03/14/2025 6:39 AM EDT This PCR assay was developed and its performance characteristics determined by [facility] as appropriate for clinical purposes. This assay has not been cleared or approved by the FDA, but is performed in a CLIA regulated laboratory that is qualified to perform high-complexity testing. Mariah Mcgowan MD LAB MICROBIOLOGY - GENERAL ORDERABLES Final Result Performing Organization Address [facility] Co de Phone Number [facility] [address] [place] [address] * (ABNORMAL) Potassium (03/12/2025 10:17 PM EDT) Potassium, Plasma 6.3(H) 3.6 - 4.9 mmol/L 03/12/2025 10:44 PM EDT [facility] Blood Venous blood specimen / Unknown Venipuncture / Unknown 03/12/2025 10:17 PM EDT 03/12/2025 10:22 PM EDT Mariah Mcgowan MD LAB BLOOD ORDERABLES Final Result Performing Organization Address [facility] [place] [address] * (ABNORMAL) Troponin T, High Sensitivity, 2 Hour, Plasma (03/12/2025 10:17 PM EDT) Troponin T, High Sensitivity, 2 Hour 28(H) <19 ng/L 03/12/2025 10:50 PM EDT [facility] Troponin Delta Interpretation Not Calculated 03/12/2025 10:50 PM EDT [facility] Comment:Specimen not collect ed within acceptable timeframe. Delta will not be calculated. Blood Venous blood specimen / Unknown Venipuncture / Unknown 03/12/2025 10:17 PM EDT 03/12/2025 10:22 PM EDT Staci Castro LAB BLOOD ORDERABLES Final Resul t Performing Organization Address City/[facility]/ZIP Co de Phone Number [facility] [address] [place] [address] * (ABNORMAL) POCT glucose meter (03/12/2025 10:14 PM EDT) POCT Glucose 137(H) 74 - 99 mg/dL 03/12/2025 10:16 PM EDT [facility] Comment:Accuracy of [...] for testing. Comment 03/12/2025 10:16 PM EDT [facility] Tap Builder ID Heraclio Zamorano 03/12/2025 10:16 PM EDT [facility] Device ID [id number] 03/12/2025 10:16 PM EDT [facility] Specimen Type POC Capillary 03/12/2025 10:16 PM EDT [facility] Blood Capillary blood specimen / Unknown 03/12/2025 10:14 PM EDT 03/12/2025 10:16 PM EDT Mariah Mcgowan MD LAB POINT OF CARE TEST DOCKED DEVICE UNSOLICITED RESULTS Final Result [facility] [address] [place] [address] * XR Abdomen 1 View (03/12/2025 9:21 [...] of the abdomen. COMPARISON: None. FINDINGS: Limited [id number] abdominal radiograph for the purpose of locating tube position. The tip of the nasogastric tube is within the proximal stomach. Procedure Note Libra Balbuena MD - 03/12/2025 CLINICAL INDICATION: Orogastric tube TECHNIQUE: Supine radiograph of the abdomen. COMPARISON: None. FINDINGS: Limited [id number] abdominal radiograph for the purpose of locatingtube [...] MD on 03/12/2025 9:30 PM us Staci Castro IMG XR PROCEDURES Final Result * Blood Culture (Aerobic/Anaerobet Set) (03/12/2025 9:12 PM EDT) Culture No growth at day 5 03/17/2025 10:01 PM EDT [facility] Blood Structure of left forearm / Unknown Venipuncture / Unknown 03/12/2025 9:12 PM EDT 03/12/2025 9:55 PM EDT Narrative [facility] - 03/17/2025 10:01 PM EDT Low blood volume submitted, results may be compromised us Staci Castro LAB MICROBIOLOGY - GENERAL ORDER ALLEN Final Result Performing Organization Address City/[facility]/ZIP Co de Phone Number [facility] [address] [place] [address] * Methemoglobin (03/12/2025 9:07 PM EDT) Methemoglobin 0.6 0.0 - 1.5 % LAB HEMATOLOGY METHOD 03/12/2025 9:18 PM EDT [facility] Blood Venous blood specimen / Unknown Venipuncture / Unknown 03/12/2025 9:07 PM EDT 03/12/2025 9:17 PM EDT Result Colton Castro LAB BLOOD ORDERABLES Final Resul t Performing Organization Address City/[facility]/ZIP Co de Phone Number [facility] [address] [place] [address] * Blood Culture (Aerobic/Anaerobet Set) (03/12/2025 9:07 PM EDT) Culture No growth at day 5 03/17/2025 10:01 PM EDT [facility] Blood Structure of right wrist region / Unknown Venipuncture / Unknown 03/12/2025 9:07 PM EDT 03/12/2025 9:23 PM EDT Narrative [facility] - 03/17/2025 10:01 PM EDT Low blood volume submitted, results may be compromised us Staci Castro LAB MICROBIOLOGY - GENERAL ORDER ALLEN Final Result Performing Organization Address City/[facility]/[place] [address] * Streptococcus pneumoniae and Legionella Urinary Antigen (03/12/2025 9:00 PM EDT) Pathologist [facility] Legionella pneumophila serogroup 1 Antigen Result (Urine) Negative Negative 03/12/2025 9:44 PM EDT [facility] Streptococcus pneumoniae Antigen Result (Urine) Negative Negative 03/12/2025 9:44 PM EDT [facility] Urine Urine specimen obtained by clean catch procedure / Unknown Non-blood Collection / Unknown 03/12/2025 9:00 PM EDT 03/12/2025 9:19 PM EDT us Staci WALKER MICROBIOLOGY - GENERAL ORDER ALLEN Final Result Performing Organization Address [facility] [place] [address] * (ABNORMAL) POCT arterial blood gas gem (03/12/2025 8:57 PM EDT) pH, Arterial 7.34 7.31 - 7.42 03/12/2025 8:59 PM EDT [facility] pCO2, Arterial 53(H) 32 - 45 mm Hg 03/12/2025 8:59 PM EDT [facility] pO2, Arterial 75 >70 mm Hg 03/12/2025 8:59 PM EDT [facility] SO2, Arterial 98 94 - 98 % 03/12/2025 8:59 PM EDT [facility] FIO2 100.0 % 03/12/2025 8:59 PM EDT [facility] Base Excess, Arterial 1.9 -2 - 3 mmol/L 03/12/2025 8:59 PM EDT [facility] HCO3, Arterial 28.6(H) 22 - 26 mmol/L 03/12/2025 8:59 PM EDT [facility] Total Hemoglobin, Arterial, Whole Blood 11.8(L) 13.7 - 17.5 g/dL 03/12/2025 8:59 PM EDT [facility] Hematocrit, Arterial 35.0(L) 40 - 51.0 % 03/12/2025 8:59 PM EDT [facility] Sodium, Arterial 132(L) 136 - 145 mmol/L 03/12/2025 8:59 PM EDT [facility] Potassium, Arterial 6.2(H) 3.6 - 4.9 mmol/L 03/12/2025 8:59 PM EDT [facility] Comment:Hemolyzed, result ma y be falsely increased. Chloride, Whole Blood 101 97 - 107 mmol/L 03/12/2025 8:59 PM EDT [facility] Glucose, Arterial 121(H) 74 - 99 mg/dL 03/12/2025 8:59 PM T [facility] Ionized Calcium, Arterial 4.6 4.6 - 5.1 mg/dL 03/12/2025 8:59 PM EDT [facility] Lactate, Arterial 0.7 0.5 - 1.6 mmol/L 03/12/2025 8:59 PM EDT [facility] Body Temperature 37.2 Celsius 03/12/2025 8:59 PM EDT [facility] pH, Temp Corrected, Arterial 7.34 7.31 - 7.42 03/12/2025 8:59 PM EDT [facility] pCO2, Temp Corrected, Arterial 53(H) 32 - 45 mm Hg 03/12/2025 8:59 PM EDT [facility] pO2, Temp Corrected, Arterial 76 >70 mm Hg 03/12/2025 8:59 PM EDT [facility] Tap Builder ID Dwayne Bose 03/12/2025 8:59 PM EDT [facility] Blood, Arterial Whole blood specimen / Unknown 03/12/2025 8:57 PM EDT 03/12/2025 8:59 PM EDT us Staci Castro LAB POINT OF CARE TE ST DOCKED DEVICE UNSOLICITED RESULTS Final Result Performing Organization Address City/[facility]/ZIP Co de Phone Number [facility] [address] [place] [address] * SARS CoV-2/COVID-19 by PCR - Rapid (03/12/2025 8:53 PM EDT) [facility] SARS CoV-2/COVID-1 9 RNA PCR Result Not Detected Not Detected 03/12/2025 10:09 PM EDT [facility] Swab Nasopharyngeal structure / Unknown Non-blood Collection / Unknown 03/12/2025 8:53 PM EDT 03/12/2025 9:20 PM EDT Narrative [facility] - 03/12/2025 10:09 PM EDT This test [...] ORDER ALLEN Final Result Performing Organization Address [facility] Co de Phone Number [facility] [address] [place] [address] * Nasopharyngeal Respiratory Panel (03/12/2025 8:53 PM EDT) [facility] Nasopharyngeal Respiratory PCR Interpretation Not Detected for all analytes Not Detected for all analytes 03/13/2025 1:10 AM EDT [facility] Swab Nasopharyngeal structure / Unknown Non-blood Collection / Unknown 03/12/2025 8:53 PM EDT 03/12/2025 9:20 PM EDT Narrative [facility] - 03/13/2025 1:10 AM [...] Respiratory PCR Panel is performed using the [employer] instrument. This test is FDA approved for use with Nasopharyngeal swabs only. This test is used for clinical purposes. It should not be regarded as investigational or for research. The [facility] is certified under the Clinical Laboratory Improvement Amendments of 1988 (CLIA-88) as qualified to perform high complexity clinical laboratory testing. us Staci Castro LAB MICROBIOLOGY - GENERAL ORDER ALLEN Final Result Performing Organization Address [facility] [place] [address] * Methicillin Resistant Staphylococcus aureus (MRSA) by PCR (03/12/2025 8:53 PM EDT) Methicillin Resistant Staphylococcus aureus (MRSA) by PCR Not Detected Not Detected 03/12/2025 10:41 PM EDT [facility] Swab Both anterior nares / Unknown Non-blood Collection / Unknown 03/12/2025 8:53 PM EDT 03/12/2025 9:20 PM EDT Narrative [facility] - 03/12/2025 10:41 PM [...] ORDER ALLEN Final Result Performing Organization Address [facility] Co de Phone Number [facility] [address] [place] [address] * EKG now - STAT (adult) (03/12/2025 8:49 PM EDT) EKG DIAGNOSIS CLASS Abnormal MUSE ECG Ventricular Rate 62 BPM MUSE ECG Atrial Rate 62 BPM MUSE ECG DE Interval 168 ms MUSE ECG QRSD Interval 128 ms MUSE ECG QT Interval 416 ms MUSE ECG QTC Interval 422 ms MUSE ECG P [place] 64 degrees MUSE ECG R [place] 81 degrees MUSE ECG T Wave [place] 81 degrees MUSE ECG Diagnosis Normal sinus rhythm MUSE ECG Diagnosis Right bundle branch block MUSE ECG Diagnosis Abnormal ECG MUSE ECG Diagnosis MUSE ECG Diagnosis Confirmed by Chino Witt ([id number]) on 03/13/2025 8:51:16 PM MUSE ECG 03/12/2025 8:49 PM EDT 03/13/2025 8:51 PM EDT us Staci Castro ECG ORDERABLES Final Result Performing Organization Address City/[facility]/ZIP Co de Phone Number MUSE ECG * (ABNORMAL) C-reactive protein (03/12/2025 8:48 PM EDT) CRP, Plasma 10.6(H) <=8.0 mg/L 03/12/2025 10:27 PM EDT [facility] Blood Venous blood specimen / Unknown Venipuncture / Unknown 03/12/2025 8:48 PM EDT 03/12/2025 8:59 PM EDT Narrative [facility] - 03/12/2025 10:27 PM EDT This CRP test is appropriate for assessment of infection, systemic inflammation and/or tissue injury. To assess cardiovascular disease risk order high sensitivity CRP (CRPH). us Mariah Mcgowan MD LAB BLOOD ORDERABLES Final Result [facility] [address] [place] [address] * TSH Reflex FT4 (03/12/2025 8:48 PM EDT) Thyroid Stimulating Hormone, Plasma 2.54 0.40 - 4.20 uIU/mL 03/12/2025 10:27 PM EDT [facility] Blood Venous blood specimen / Unknown Venipuncture / Unknown 03/12/2025 8:48 PM EDT 03/12/2025 8:59 PM EDT us Mariah Mcgowan MD LAB BLOOD ORDERABLES Final Result [facility] [address] [place] [address] * Light Green Top (03/12/2025 8:48 PM EDT) Extra Hold for add-ons 03/13/2025 12:01 AM EDT [facility] Comment:Auto resulted. Blood Venous blood specimen / Unknown 03/12/2025 8:48 PM EDT 03/12/2025 9:20 PM EDT us Mariah Mcgowan MD LAB BLOOD ORDERABLES Final Result [facility] [address] [place] [address] * Light Blue Top (03/12/2025 8:48 PM EDT) Extra Hold for add-ons 03/13/2025 12:01 AM EDT [facility] Comment:Auto resulted. Blood Venous blood specimen / Unknown 03/12/2025 8:48 PM EDT 03/12/2025 9:20 PM EDT us Mariah Mcgowan MD LAB BLOOD ORDERABLES Final Result [facility] [address] [place] [address] * ED HIV 1/2 Antibody/Antigen Screen w/Reflex to HIV 1/2 Differentiation (03/12/2025 8:48 PM EDT) HIV 1 & 2 Antibody/Antigen Screen Non Reactive Non Reactive 03/12/2025 9:37 PM EDT [facility] Comment:Screening for HIV 1 & 2 antibodies, and P24 antigen is NONREACTIVE. No confirmatory testing is required. Blood Venous blood specimen / Unknown Venipuncture / Unknown 03/12/2025 8:48 PM EDT 03/12/2025 9:00 PM EDT us Staci Castro LAB BLOOD ORDERABLES Final Resul t Performing Organization Address [facility] Co de Phone Number [facility] [address] [place] [address] * Hepatitis C Antibody - ED (03/12/2025 8:48 PM EDT) Pathologist [facility] Hepatitis C Antibody Negative Negative 03/12/2025 9:38 PM EDT [facility] Blood Venous blood specimen / Unknown Venipuncture / Unknown 03/12/2025 8:48 PM EDT 03/12/2025 8:59 PM EDT us Staci Castro LAB BLOOD ORDERABLES Final Resul t Performing Organization Address [facility] de Phone Number [facility] [address] [place] [address] * (ABNORMAL) Procalcitonin (03/12/2025 8:48 PM EDT) [facility] Procalcitonin, Plasma 0.11(H) <0.09 ng/mL 03/12/2025 9:37 PM EDT [facility] Blood Venous blood specimen / Unknown Venipuncture / Unknown 03/12/2025 8:48 PM EDT 03/12/2025 8:59 PM EDT Narrative [facility] - 03/12/2025 9:37 PM [...] predict 28 day mortality risk. Please consult [email or web address] for more information. Test performed at [facility]. Result Colton Castro LAB BLOOD ORDERABLES Final Resul t Performing Organization Address City/[facility]/ZIP Co de Phone Number [facility] [address] [place] [phone] * (ABNORMAL) Troponin now and 120 min (03/12/2025 8:48 PM EDT) Troponin T, High Sensitivity, 0 Hour 32(H) <19 ng/L 03/12/2025 9:37 PM EDT [facility] Blood Venous blood specimen / Unknown Venipuncture / Unknown 03/12/2025 8:48 PM EDT 03/12/2025 8:59 PM EDT Result Colton Castro LAB BLOOD ORDERABLES Final Resul t Performing Organization Address [facility] Co de Phone Number [address] [address] * (ABNORMAL) Magnesium (03/12/2025 8:48 PM EDT) Magnesium, Plasma 1.7(L) 1.9 - 2.4 mg/dL 03/12/2025 9:37 PM EDT [facility] Blood Venous blood specimen / Unknown Venipuncture / Unknown 03/12/2025 8:48 PM EDT 03/12/2025 8:59 PM EDT Result Colton Castro LAB BLOOD ORDERABLES Final Resul t Performing Organization Address [facility] Co de Phone Number [facility] [address] [place] [phone] * (ABNORMAL) CMP (03/12/2025 8:48 PM EDT) Glucose, Plasma 114(H) 74 - 99 mg/dL 03/12/2025 9:37 PM EDT [facility] BUN, Plasma 30(H) 8 - 23 mg/dL 03/12/2025 9:37 PM EDT [facility] Creatinine, Plasma 2.08(H) 0.70 - 1.20 mg/dL 03/12/2025 9:37 PM EDT [facility] BUN/Creatinine Ratio 14 03/12/2025 9:37 PM EDT [facility] Sodium, Plasma 135(L) 136 - 145 mmol/L 03/12/2025 9:37 PM EDT [facility] Potassium, Plasma 6.1(H) 3.6 - 4.9 mmol/L 03/12/2025 9:37 PM EDT [facility] Chloride, Plasma 99 97 - 107 mmol/L 03/12/2025 9:37 PM EDT [facility] CO2, Plasma 27 22 - 29 mmol/L 03/12/2025 9:37 PM EDT [facility] Anion Gap 9 6 - 16 mmol/L 03/12/2025 9:37 PM EDT [facility] Total Calcium, Plasma 8.6(L) 8.9 - 10.2 mg/dL 03/12/2025 9:37 PM EDT [facility] Total Protein 6.8 6.3 - 7.9 g/dL 03/12/2025 9:37 PM EDT [facility] Albumin, Plasma 4.1 3.5 - 5.2 g/dL 03/12/2025 9:37 PM EDT [facility] AST, Plasma 17 10 - 50 U/L 03/12/2025 9:37 PM EDT [facility] ALT, Plasma 12 10 - 50 U/L 03/12/2025 9:37 PM EDT [facility] Alkaline Phosphatase, Plasma 83 40 - 115 U/L 03/12/2025 9:37 PM EDT [facility] Total Bilirubin, Plasma 0.6 0.2 - 1.1 mg/dL 03/12/2025 9:37 PM EDT [facility] eGFRcr 33.2 mL/min/1.7 3m*2 03/12/2025 9:37 PM EDT [facility] Comment:Reported eGFRcr in m L/min/1.73m2 is based the CKD-EPI 2020 equation that does not use a race coefficient. Blood Venous blood specimen / Unknown Venipuncture / Unknown 03/12/2025 8:48 PM EDT 03/12/2025 8:59 PM EDT us Staci Castro LAB BLOOD ORDERABLES Final Resul t Performing Organization Address [facility]/ZIP Co de Phone Number [facility] [address] [place] [address] * (ABNORMAL) PT-INR (03/12/2025 8:48 PM EDT) Prothrombin Time 14.6(H) 12.0 - 14.3 sec 03/12/2025 9:06 PM EDT [facility] INR 1.2(H) 0.9 - 1.1 03/12/2025 9:06 PM EDT [facility] Blood Venous blood specimen / Unknown Venipuncture / Unknown 03/12/2025 8:48 PM EDT 03/12/2025 8:53 PM EDT Narrative [facility] - 03/12/2025 9:06 PM EDT OPTIMAL INR RANGES FOR PATIENT ON ORAL ANTICOAGULANT THERAPY Prevention of venous thromboembolism INR 2.0 to 3.0 In patients with heart disease: Atrial fibrillation INR 2.0 to 3.0 Valvular heart disease INR 2.0 to 3.0 Tissue heart valves INR 2.0 to 3.0 Mechanical prosthetic valves INR 2.5 to 3.5 Prevention of recurrent GA INR 2.5 to 3.5 us Staci Castro LAB BLOOD ORDERABLES Final Resul t Performing Organization Address City/[facility]/ZIP Co de Phone Number [facility] [address] [place] [address] * (ABNORMAL) CBC w/diff (03/12/2025 8:48 PM EDT) WBC Count 9.02 3.70 - 10.30 10*3/uL LAB HEMATOLOGY METHOD 03/12/2025 8:56 PM EDT [facility] RBC Count 4.48(L) 4.60 - 6.10 10*6/uL LAB HEMATOLOGY METHOD 03/12/2025 8:56 PM EDT [facility] HGB 12.3(L) 13.7 - 17.5 g/dL LAB HEMATOLOGY METHOD 03/12/2025 8:56 PM EDT [facility] HCT 39.2(L) 40.0 - 51.0 % LAB HEMATOLOGY METHOD 03/12/2025 8:56 PM EDT [facility] Platelet Count 196 155 - 369 10*3/uL LAB HEMATOLOGY METHOD 03/12/2025 8:56 PM EDT [facility] MCV 88 79 - 98 fL LAB HEMATOLOGY METHOD 03/12/2025 8:56 PM EDT [facility] MCH 27.5 26.0 - 32.0 pg LAB HEMATOLOGY METHOD 03/12/2025 8:56 PM EDT [facility] MCHC 31.4 30.7 - 35.5 g/dL LAB HEMATOLOGY METHOD 03/12/2025 8:56 PM EDT [facility] RDW 16.8(H) 11.5 - 14.5 % LAB HEMATOLOGY METHOD 03/12/2025 8:56 PM EDT [facility] MPV 9.4 8.8 - 12.5 fL LAB HEMATOLOGY METHOD 03/12/2025 8:56 PM EDT [facility] nRBC 0.0 <=0.0 per 100 WBCs LAB HEMATOLOGY METHOD 03/12/2025 8:56 PM EDT [facility] Differential Type Automated LAB HEMATOLOGY METHOD 03/12/2025 8:56 PM EDT [facility] Neutrophils % 87 % LAB HEMATOLOGY METHOD 03/12/2025 8:56 PM EDT [facility] Lymphocytes % 11 % LAB HEMATOLOGY METHOD 03/12/2025 8:56 PM EDT [facility] Monocytes % 2 % LAB HEMATOLOGY METHOD 03/12/2025 8:56 PM EDT [facility] Eosinophils % 0 % LAB HEMATOLOGY METHOD 03/12/2025 8:56 PM EDT [facility] Basophils % 0 % LAB HEMATOLOGY METHOD 03/12/2025 8:56 PM EDT [facility] Immature Granulocytes % 0 % LAB HEMATOLOGY METHOD 03/12/2025 8:56 PM EDT [facility] Neutrophils Absolute 7.72(H) 1.60 - 6.10 10*3/uL LAB HEMATOLOGY METHOD 03/12/2025 8:56 PM EDT [facility] Lymphocytes Absolute 1.01(L) 1.20 - 3.90 10*3/uL LAB HEMATOLOGY METHOD 03/12/2025 8:56 PM EDT [facility] Monocytes Absolute 0.22(L) 0.30 - 0.90 10*3/uL LAB HEMATOLOGY METHOD 03/12/2025 8:56 PM EDT [facility] Eosinophils Absolute 0.03 0.00 - 0.50 10*3/uL LAB HEMATOLOGY METHOD 03/12/2025 8:56 PM EDT [facility] Basophils Absolute 0.02 0.00 - 0.10 10*3/uL LAB HEMATOLOGY METHOD 03/12/2025 8:56 PM EDT [facility] Immature Granulocytes Absolute 0.02 0.00 - 0.06 10*3/uL LAB HEMATOLOGY METHOD 03/12/2025 8:56 PM EDT [facility] Blood Venous blood specimen / Unknown Venipuncture / Unknown 03/12/2025 8:48 PM EDT 03/12/2025 8:53 PM EDT Narrative [facility] - 03/12/2025 8:56 PM EDT Therapeutic decision making should be based on absolute values, rather than percentages. us Staci Castro LAB BLOOD ORDERABLES Final Resul t Performing Organization Address City/State/[facility] Co de Phone Number [facility] [address] [place] [address] * DE CRITICAL CARE, ADDL 30 MIN (03/12/2025 8:41 [...] documented. us Staci Castro IN CLINIC/BEDSIDE ORDERABLES Minh gaytan Result * (ABNORMAL) POCT venous blood gas gem (03/12/2025 8:41 PM EDT) pH, Venous 7.34 7.32 - 7.43 03/12/2025 8:42 PM EDT [facility] pCO2, Venous 57(H) 40 - 55 mm Hg 03/12/2025 8:42 PM EDT [facility] pO2, Venous 46(H) 25 - 40 mm Hg 03/12/2025 8:42 PM EDT [facility] SO2, Venous 82(H) 65 - 80 % 03/12/2025 8:42 PM EDT [facility] Base Excess/Deficit, Venous 3.7(H) -2 - 3 mmol/L 03/12/2025 8:42 PM EDT [facility] HCO3, Venous 30.8(H) 22 - 26 mmol/L 03/12/2025 8:42 PM EDT [facility] Hemoglobin, Venous 12.3(L) 13.7 - 17.5 g/dL 03/12/2025 8:42 PM EDT [facility] Hematocrit, Venous 37.0(L) 40.0 - 51.0 % 03/12/2025 8:42 PM EDT [facility] Sodium, Venous 132(L) 136 - 145 mmol/L 03/12/2025 8:42 PM EDT [facility] Potassium, Venous 6.4(H) 3.6 - 4.9 mmol/L 03/12/2025 8:42 PM EDT [facility] Comment:Hemolyzed, result ma y be falsely increased. POCT Chloride, Venous 101 97 - 107 mmol/L 03/12/2025 8:42 PM EDT [facility] Glucose, Venous 113(H) 74 - 99 mg/dL 03/12/2025 8:42 PM EDT [facility] Ionized Calcium, Venous 4.6 4.6 - 5.1 mg/dL 03/12/2025 8:42 PM EDT [facility] Lactate, Venous 0.9 0.5 - 2.2 mmol/L 03/12/2025 8:42 PM EDT [facility] Body Temperature 37.0 Celsius 03/12/2025 8:42 PM EDT [facility] pH, Temp Corrected, Venous 7.34 7.32 - 7.43 03/12/2025 8:42 PM EDT [facility] pCO2, Temp Corrected, Venous 57(H) 40 - 55 mm Hg 03/12/2025 8:42 PM EDT [facility] pO2, Temp Corrected, Venous 46(H) 25 - 40 mm Hg 03/12/2025 8:42 PM EDT [facility] Tap Builder ID Irene Ro 03/12/2025 8:42 PM EDT [facility] Blood, Venous Whole blood specimen / Unknown 03/12/2025 8:41 PM EDT 03/12/2025 8:42 PM EDT us Generic Provider Poct LAB POINT OF CARE TEST DOCKED DEVICE UNSOLICITED RESULTS Final Result [facility] [address] [place], [place] [id number] documented in this encounter Visit Diagnoses Diagnosis [...] 100 mcg, Intravenous, Once, 1 dose, On Fri03/12/25 at 2045, Routine Given 03/12/2025 8:35 PM [...] Every 8 hours scheduled, First dose on 03/13/25 at 0900, Until Discontinued, Routine Given 03/16/2025 6:07 AM EDT 5,000 Units Left Lower Abdomen Given 03/15/2025 10:40 PM EDT 5,000 Units Left Lower Abdomen Given 03/15/2025 1:34 PM EDT 5,000 Units L eft Lower Abdomen HYDROcodone-acetaminophen ([place]) 5-325 MG per tablet 10 mg of hydrocodone 10 mg of hydrocodone, Oral, Every 6 hours PRN, Starting on 03/14/25 at 1731, Until Viviane 03/17/25 at 1350, Routine, moderate pain Given 03/16/2025 9:54 PM EDT 10 mg of hydrocodone Given 03/14/2025 6:09 PM EDT 10 mg of hydrocodone HYDROmorphone (Dilaudid) bolus from bag 0.5 mg, Intravenous, Every 10 min PRN, Starting on 03/12/25 at 2043, Until 03/14/25 at 1243, Administer over 2 Minutes, Routine, CPOT (5-8) Bolus from Bag 03/13/2025 10:24 AM EDT 0.5 mg Bolus from Bag 03/12/2025 8:46 PM EDT 0.5 mg hydromorphone 20 mg in NS 100 mL infusion (200 mcg/mL) 0.25-2 mg/hr (1.25-10 mL/hr), 0.2 mg/mL, Intravenous, Titrated, Starting on 03/12/25 at 2045, Until 03/14/25 at 1243, Routine Rate/Dose Verify 03/14/2025 6:00 [...] nightly (2100 & 0300), First dose on 03/15/25 at 2100, Until Discontinued, Routine insulin regular (HumuLIN R,NovoLIN R) 100 UNIT/ML injection 5 Units 5 Units, Intravenous, Once, 1 dose, On 03/12/25 at 2205, RoutineIndications:Hyperkalemia Given 03/12/2025 10:51 PM EDT 5 Units ipratropium-albuterol (Duo-Neb) 0.5-2.5 mg/3 mL nebulizer solution 3 mL 3 mL, Nebulization, Every 6 hours RT, First dose on 03/13/25 at 0400, Until Discontinued, Routine Given 03/17/2025 9:10 AM EDT 3 mL Given 03/17/2025 3:24 AM EDT 3 mL Given 03/16/2025 9:37 PM EDT 3 mL ipratropium-albuterol (Duo-Neb) 0.5-2.5 mg/3 mL nebulizer solution 9 mL 9 mL, Nebulization, Once, 1 dose, On [facility] 03/12/25 at 2045, Routine Given 03/12/2025 8:45 [...] 2 g, Intravenous, Once, 1 dose, On [place] 03/13/25 at 0245, Routine New Bag 03/13/2025 2:45 AM EDT 2 g 25 mL/hr mupirocin (Bactroban) 2 % ointment 1 Application Each Nostril, 2 times daily, 10 doses, First dose on [facility] 03/12/25 at 2200, Last dose on [place] 03/17/25 at 0900, Routine Given 03/17/2025 8:34 AM [...] Daily, First dose (after last modification) on [facility] 03/12/25 at 2105, Until Discontinued, STAT Given 03/12/2025 9:06 PM EDT 40 mg polyethylene glycol (Miralax) packet 17 g 17 g, Nasogastric, Daily, First dose on [place] 03/13/25 at 0900, Until Discontinued, Routine Given 03/14/2025 8:12 AM EDT 17 g Given 03/13/2025 8:07 AM EDT 17 g polyethylene glycol (Miralax) packet 17 g 17 g, Oral, Daily, First dose (after last modification) on [facility] 03/15/25 at 0900, Until Discontinued, Routine propofol (Diprivan) infusion 10 mg/mL 10-50 mcg/kg/min 113 kg (6.78-33.9 mL/hr), Intravenous, Titrated, Starting on [facility] 03/12/25 at 2045, Until 03/14/25 at 1243, Routine New Bag 03/14/2025 6:27 [...] 0834 (Given - Provider: Shaista Guzman RN) amitriptyline (Elavil) tablet 25 mg 25 mg, [...] 0834 (Given - Provider: Shaista Guzman, GABRIEL) atorvastatin (Lipitor) tablet 20 mg 20 mg, Oral, Nightly, First dose (after last modification) on Fri03/15/25 at 2100, Until Discontinued 2028 (Given - Provider: Csaie Street) 2153 (Given - Provider: Becka Odom) cefTRIAXone (Rocephin) 2 g in sodium chloride 0.9% 100 mL IVPB (vial adapter required) (COMPLETED) 2 g, Intravenous, Every 24 hours, 5 doses, First dose on Fri03/12/25 at 2300, Last dose on Fri03/16/25 at 1800, Routine 2326 (New Bag - Provider: Casie Street) 1755 (New Bag - Provider: Shaista Guzman, GABRIEL) enoxaparin (Lovenox) syringe 40 mg 40 mg, [...] [address]) 0806 (Given - Provider: Shaista Guzman, GABRIEL)2154 (Given - Provider: Becka Odom) 0834 (Given - Provider: Shaista Guzman RN) heparin (porcine) injection 5,000 Units (CANCELED) 5,000 Units, Subcutaneous, Every 8 hours scheduled, First dose on Fri03/13/25 at 0900, Until Discontinued, Routine 0626 (Given - Provider: Heraclio Gomez RN)1334 (Given - Provider: Shellie Casarez, GABRIEL)2240 (Given - Provider: Casie Street) 0607 (Given [...] Reason: Order parameters not met - Comment: [id number] (Not Given - Provider: Becka Odom - Reason: Order parameters not met - Comment: Order parameters not met) 032 (Not Given - Provider: Becka Odom - Reason: Order parameters not met - Comment: Order parameters not met) ipratropium-albuterol (Duo-Neb) 0.5-2.5 mg/3 mL nebulizer solution 3 mL 3 mL, Nebulization, Every 6 hours RT, First dose on Fri03/13/25 at 0400, Until Discontinued, Routine 0334 (Given - Provider: Amanda Abdullahi)0801 (Given - Provider: Anupam Hahn)1516 (Given - Provider: Anupam Hahn)2038 (Given - Provider: Amanda Abdullahi) 0540 (Not Given - Provider: Rahul Holder - Reason: Unreviewed Transfer Orders)0841 (Given - Provider: Kylie Vick)1511 (Given - Provider: Kylie Vick)2137 (Given - Provider: Joaquina Clark) 0324 (Given - Provider: Joaquina Clark)0910 (Given - Provider: Saqib Iqbal) mupirocin (Bactroban) 2 % ointment 1 Application (COMPLETED) Each Nostril, 2 times daily, 10 doses, First dose on Fri03/12/25 at 2200, Last dose on [place] 03/17/25 at 0900, Routine 0807 (Given - Provider: Shellie Casarez RN)2029 (Given - Provider: Casie Street) 0806 (Given - Provider: Shaista Guzman, GABRIEL)215 (Given [...] sugar 0450 (Canceled Entry - Provider: Heraclio Gomez, GABRIEL)0451 (Given - Provider: Heraclio Gomez, GABRIEL) glucagon (human recombinant) injection 1 mg(Linked Group 1) 1 mg, Intramuscular, Every 15 min PRN, Starting on 03/12/25 at 2154, Until [place] 03/17/25 at 1350, Routine, low blood sugar per Hypoglycemia Prevention and Treatment protocol 0450 (See Alternative - Provider: Heraclio Gomez, RN)450 (See Alternative - Provider: Heraclio Gomez, RN) glucose (Glutose) 40 % oral gel 15-30 grams of glucose(Linked Group 1) 15-30 grams of glucose, Sublingual, Every 15 min PRN, Starting on 03/12/25 at 2154, Until Viviane 03/17/25 at 1350, Routine, low blood sugar, per Hypoglycemia Prevention and Treatment protocol 449 (See Alternative - Provider: Heraclio Gomez RN)045 (See Alternative - Provider: Heraclio Gomez, RN) HYDROcodone-acetaminophen ([place]) 5-325 MG per tablet 10 mg of [...] Tuberculosis Rule-Out Comment:Per Epic chat with Lay Clark DO on 03/15/25 @ 2242, there is no concern for TB. - Aryaannel Ravindra 03/13/2025 03/13/2025 03/13/2025 11:31 AM EDT Assessment Noted Time A fall risk assessment has been complete d for the patient 04/07/2024 2:13 PM EDT A Body Mass Index follow-up plan has been documented for the patient 03/17/2025 11:22 AM EDT documented as of this encounter Care Teams Product Sales Representative Relationship Specialty Start Date End Date Joycelyn Montes PA [address] [place] [address] PCP - General 04/01/23 documented as of this encounter
--- NOTE | 2025-04-25 10:00 | NM_ITS ---
FINAL REPORT CLINICAL HISTORY: Metastatic disease, Lung cancer 10:10am 25.5 mci tc mdp FINDINGS: WHOLE BODY BONE SCAN PROCEDURE: The patient was injected with 25.5 mCi of technetium 99M MDP. Images were obtained after a three-hour delay. FINDINGS: There is a small focus of increased activity in the lower thoracic spine, probably degenerative. Increased activity in the medial compartment joint space of the right knee is consistent with osteoarthritis. No other abnormal radiotracer activity identified. IMPRESSION: No evidence of metastatic disease. Reviewed, Interpreted and Dictated by Gael Carreon MD Transcribed by Mónica Cabrera Authenticated and [facility]
--- OUTSIDE RECORDS SUMMARY | 2025-04-25 10:00 | XMS_ITS | Encounter Summary ---
Author Organization [facility] Address [address] [place] [address] Care Team Providers Care Shipping Room Helper Name Role Phone SimonJoycelyn PANKAJ Primary Care Provider [phone] Brinda Pineda LPN Unavailable Unavailable Reason for Visit * Reason Comments Follow-up Encounter Details Date Type Department Care Team (Late st Contact Info) Description 03/25/2025 Patient Outreach POPULATION HEALTH [address] [facility], [address] [place] [address] Brinda Pineda LPN [employer] [place] [address] Follow-up Social History Tobacco Use Types Packs/Day [...] and Family Not on file 03/15/2025 Attends [employer] Services Not on file 03/15 Active Member [...] any time in the past 12 m [facility], were you homeless or living in a half-way (including now)? No 03/15/2025 Utilities Answer Date [...] documented as of this encounter Care Teams Shipping Room Helper Relationship Specialty Start Date End Date Joycelyn Montes PA [address] [place] [address] PCP - General 04/01/23 Brinda Pineda LPN [employer] [place] [address] TCM Nurse 03/18/25 04/17/25 documented as of this encounter
--- OUTSIDE RECORDS SUMMARY | 2025-04-25 10:00 | XMS_ITS | Encounter Summary ---
Author Organization Healthcare Address [address] [place] [address] Care Team Providers Care Transferrer Name Role Phone Joycelyn Montes PANKAJ Primary Care Provider [phone] Brinda Pineda LPN Unavailable Unavailable Encounter Details Date Type Department Care Team (Late st Contact Info) Description 02/23/2024 Orders Only External Location [address] [place] [address] Olga Shin MD [address] [place] [address] Social History Tobacco Use Types [...] 025 1:10 AM EDT Tuberculosis Rule-Out Comment:Per [facility] chat with Lay Clark, on 03/15/25 @ 1525, there is no concern for TB. - Aryaannel Ravindra 03/13/2025 03/13/2025 03/13/2025 11:31 AM EDT documented as of this encounter Care Teams Transferrer Relationship Specialty Start Date End Date Joycelyn Montes PA [address] [facility] [place] [address] PCP - General 04/01/23 Brinda Pineda LPN [employer] [place] [address] TCM Nurse 03/18/25 04/17/25 documented as of this encounter
--- OUTSIDE RECORDS SUMMARY | 2025-04-25 10:00 | XMS_ITS | Encounter Summary ---
Author Organization [facility] Address [address] [place] [address] Care Team Providers Care Grading Machine Operator Name Role Phone SimonJoycelyn PANKAJ Primary Care Provider [phone] Brinda Pineda LPN Unavailable Unavailable Reason for Visit * Reason Comments TCM Call Encounter Details Date Type Department Care Team (Late st Contact Info) Description 03/18/2025 Patient Outreach POPULATION [facility] [address] [facility], [address] [place] [address] Brinda Pineda LPN [employer] [place] [address] TCM Call Social History Tobacco Use Types [...] and Family Not on file 03/15/2025 Attends R[employer]af[employer] Services Not on file 03/15 Active Member [...] time in the past 12 m [facility], were you homeless or living in a assisted (including now)? No 03/15/2025 Utilities Answer Date [...] He plans to reach out to local [employer] regarding dosage change of Aspirin. SDOH assessment is up to date, no issue with transportation. No upcoming appointments scheduled at [facility]. Patient does not have an appointment with [...] documented as of this encounter Care Teams Grading Machine Operator Relationship Specialty Start Date End Date Joycelyn Montes PA [address] [place] [address] PCP - General 04/01/23 Brinda Pineda LPN [employer] [place] [address] TCM Nurse 03/18/25 04/17/25 documented as of this encounter
--- OUTSIDE RECORDS SUMMARY | 2025-04-25 10:00 | XMS_ITS | Clinical Summary ---
Author Organization [facility] Address [facility] [place] [address] Care Team Providers Care Professor Of Music Name Role Phone SimonJoycelyn PANKAJ Primary Care Provider [phone] Allergies Active Allergy Reactions Criticality Noted Date [...] times a day. 4 Active HYDROcodone-tonya taminophen ([place]) 10-325 MG tablet Take 1 tablet by [...] Department Care Team Description 03/25/2025 Patient Outreach [address], [facility] [address] [place] [address] Brinda Pineda LPN Follow-up 03/18/2025 Patient Outreach [address], [facility] [address] [place] [address] Brinda Pineda LPN TCM Call 03/14/2025 Travel 03/13/2025 Travel 03/12/2025 8:41 PM EDT - 03/17/2025 11:49 AM EDT Hospital Encounter PAV A Inpatient [address] [place] [address] The, MD Choco Blanchard, MD Brain Gaytan, [...] Travel 03/12/2025 Orders Only External Location [address] [place] [address] Provider, External 03/12/2025 Orders Only External Location [address] [place] [address] Provider, External 03/12/2025 Orders Only External Location [address] [place] [address] Provider, External 03/12/2025 Orders Only External Location [address] [place] [id number] Provider, External 03/12/2025 Orders Only External Location [address] [place] [address] Provider, External from Last 3 [...] and Family Not on file 03/15/2025 Attends [employer] Not on file 03/15 Active Member [...] in the past [address] [facility], were you homeless or living in a detention (including now)? No 03/15/2025 Utilities Answer Date Recorded In the past 12 months has e [employer], gas, oil, or water company threatened to [...] exists [facility]-Medicare Annual Wellness (AWV) 05/07/2020 05/07/2019 [id number] Vaccine (5 - Pfizer risk season) 2025 07/23/2024, 09/26/2021, 02/14/2021, Additional history [...] this topic Medical Devices Implanted Type Area Nailer Operator Device Identifier Shelf Expiration Date Model / Serial / Lot Stent Ureteral Double Pigtail Pos 6fr 24cm - Sn/A - [id number] Implanted:Qty: 1 on 04/27/2024 by Malik Dunaway MD at [facility] Stent Right: [id number] 10/09/2025 [id number] / N/A / [id number] Procedures Procedure Name Priority Date/Time Associated Diagnosis [...] UNSOLICITED RESULTS Routine 03/14/2025 12:[address] CRITICAL CARE, E/M 30-74 MINUTES Routine 03/14/2025 [...] CO2 MONITORING Routine 03/13/2025 8:[address] CRITICAL CARE, E/M 30-74 MINUTES Routine 03/13/2025 [...] UNSOLICITED RESULTS Routine 03/12/2025 8:[address] CRITICAL CARE, ADDL 30 MIN Routine 03/12/2025 [...] - 99 mg/dL 03/17/2025 8:33 AM EDT [facility] Comment:Accuracy of a glucos e result [...] Comment 03/17/2025 8:33 AM EDT [facility] Er Tech ID Lindsey Zamora 03/17/2025 8:33 AM EDT [facility] Device ID [id number] 03/17/2025 8:33 AM EDT [facility] Specimen Type POC Capillary 03/17/2025 8:33 AM EDT [facility] Blood Capillary blood specimen / Unknown 03/17/2025 8:31 AM EDT 03/17/2025 8:33 AM EDT us Bernardo Chavez MD LAB POINT OF CARE TE ST DOCKED DEVICE UNSOLICITED RESULTS Final Result [facility] [address] [place] [address] * (ABNORMAL) CBC W/O Differential (03/17/2025 5:29 AM EDT) Only the most recent of5 resultswithin the time period is included. WBC Count 7.19 3.70 - 10.30 10*3/uL LAB HEMATOLOGY METHOD 03/17/2025 5:52 AM EDT [facility] RBC Count 4.43(L) 4.60 - 6.10 10*6/uL LAB HEMATOLOGY METHOD 03/17/2025 5:52 AM EDT [facility] HGB 11.9(L) 13.7 - 17.5 g/dL LAB HEMATOLOGY METHOD 03/17/2025 5:52 AM EDT [facility] HCT 39.1(L) 40.0 - 51.0 % LAB HEMATOLOGY METHOD 03/17/2025 5:52 AM EDT [facility] Platelet Count 188 155 - 369 10*3/uL LAB HEMATOLOGY METHOD 03/17/2025 5:52 AM EDT [facility] MCV 88 79 - 98 fL LAB HEMATOLOGY METHOD 03/17/2025 5:52 AM EDT [facility] MCH 26.9 26.0 - 32.0 pg LAB HEMATOLOGY METHOD 03/17/2025 5:52 AM EDT [facility] MCHC 30.4(L) 30.7 - 35.5 g/dL LAB HEMATOLOGY METHOD 03/17/2025 5:52 AM EDT [facility] RDW 16.7(H) 11.5 - 14.5 % LAB HEMATOLOGY METHOD 03/17/2025 5:52 AM EDT [facility] MPV 10.1 8.8 - 12.5 fL LAB HEMATOLOGY METHOD 03/17/2025 5:52 AM EDT [facility] nRBC 0.0 <=0.0 per 100 WBCs LAB HEMATOLOGY METHOD 03/17/2025 5:52 AM EDT [facility] Blood Venous blood specimen / Unknown Venipuncture / Unknown 03/17/2025 5:29 AM EDT 03/17/2025 5:44 AM EDT us Gt De La Paz MD LAB BLOOD ORDERABLES Final Res ult [facility] [address] [place] [address] * (ABNORMAL) Blood gas panel, venous (03/17/2025 5:29 AM EDT) Only the most recent of7 resultswithin the time period is included. pH, Venous 7.35 7.32 - 7.43 LAB HEMATOLOGY METHOD 03/17/2025 5:39 AM EDT [facility] pCO2, Venous 59(H) 40 - 55 mmHg LAB HEMATOLOGY METHOD 03/17/2025 5:39 AM EDT [facility] pO2, Venous 71(H) 25 - 40 mmHg LAB HEMATOLOGY METHOD 03/17/2025 5:39 AM EDT [facility] SO2, Measured, Venous 95(H) 65 - 80 % LAB HEMATOLOGY METHOD 03/17/2025 5:39 AM EDT [facility] Base Excess, Venous 5.5(H) -2.0 - 3.0 mmol/L LAB HEMATOLOGY METHOD 03/17/2025 5:39 AM EDT [facility] Bicarbonate, Calculated, Venous 33(H) 22 - 26 mmol/L LAB HEMATOLOGY METHOD 03/17/2025 5:39 AM EDT [facility] Hematocrit, Whole Blood 37.2(L) 40.0 - 51.0 % LAB HEMATOLOGY METHOD 03/17/2025 5:39 AM EDT [facility] Sodium, Whole Blood 139 136 - 145 mmol/L LAB HEMATOLOGY METHOD 03/17/2025 5:39 AM EDT [facility] Potassium, Whole Blood 4.6 3.6 - 4.9 mmol/L LAB HEMATOLOGY METHOD 03/17/2025 5:39 AM EDT [facility] Chloride, Whole Blood 103 97 - 107 mmol/L LAB HEMATOLOGY METHOD 03/17/2025 5:39 AM EDT [facility] Glucose, Whole Blood 88 74 - 99 mg/dL LAB HEMATOLOGY METHOD 03/17/2025 5:39 AM EDT [facility] Lactate, Venous, Whole Blood 0.8 0.5 - 2.2 mmol/L LAB HEMATOLOGY METHOD 03/17/2025 5:39 AM EDT [facility] Ionized Calcium, Whole Blood 4.6 4.6 - 5.1 mg/dL LAB HEMATOLOGY METHOD 03/17/2025 5:39 AM EDT [facility] Blood Venous blood specimen / Unknown Venipuncture / Unknown 03/17/2025 5:29 AM EDT 03/17/2025 5:37 AM EDT Delta Wilhelm MD LAB BLOOD ORDERABLES Final Result [facility] [address] [place] [address] * (ABNORMAL) Basic metabolic panel (03/17/2025 5:29 AM EDT) Only the most recent of4 resultswithin the time period is included. Glucose, Plasma 90 74 - 99 mg/dL 03/17/2025 6:12 AM EDT [facility] BUN, Plasma 17 8 - 23 mg/dL 03/17/2025 6:12 AM EDT [facility] Creatinine, Plasma 1.31(H) 0.70 - 1.20 mg/dL 03/17/2025 6:12 AM EDT [facility] BUN/Creatinine Ratio 13 03/17/2025 6:12 AM EDT [facility] Sodium, Plasma 139 136 - 145 mmol/L 03/17/2025 6:12 AM EDT [facility] Potassium, Plasma 4.8 3.6 - 4.9 mmol/L 03/17/2025 6:12 AM EDT [facility] Comment:Hemolyzed, result ma y be falsely increased. Chloride, Plasma 102 97 - 107 mmol/L 03/17/2025 6:12 AM EDT [facility] CO2, Plasma 28 22 - 29 mmol/L 03/17/2025 6:12 AM EDT [facility] Anion Gap 9 6 - 16 mmol/L 03/17/2025 6:12 AM EDT [facility] Total Calcium, Plasma 8.7(L) 8.9 - 10.2 mg/dL 03/17/2025 6:12 AM EDT [facility] eGFRcr 57.8 mL/min/1.7 3m*2 03/17/2025 6:12 AM EDT [facility] Comment:Reported eGFRcr in m L/min/1.73m2 is based the CKD-EPI 2020 equation that does not use a race coefficient. Blood Venous blood specimen / Unknown Venipuncture / Unknown 03/17/2025 5:29 AM EDT 03/17/2025 5:40 AM EDT us Gt De La Paz MD LAB BLOOD ORDERABLES Final Res ult [facility] [address] [place] [address] * EEG (03/14/2025 1:31 PM EDT) Anatomical [...] injection 5,000 Units 5,000 Units Subcutaneous q8h [facility] Liz Echevarria MD 5,000 Units at 03/14/25 0621 insulin regular (HumuLIN R,NovoLIN R) 100 units/mL injection - Correction - Standard Dose 0-5 Units Subcutaneous q6h [facility] Lay Clark DO ipratropium-albuterol (Duo-Neb) 0.5-2.5 [...] Wilhelm MD NEUROLOGY ORDERABLES Final Result * CT CRITICAL CARE, E/M 30-74 MINUTES (03/14/2025 7:18 [...] 114 <150 mg/dL 03/14/2025 1:11 AM EDT [facility] Comment: Triglyceride Reference Range (age >17 years): Desirable: <150 mg/dL Borderline high: 150 to 199 mg/dL High: 200 to 499 mg/dL Very high: >499 mg/dL Increased risk of pancreatitis: >1000 mg/dL Fasting greater than or equal to 12 hours? Yes 03/14/2025 1:11 AM EDT [facility] Blood Venous blood specimen / Unknown Venipuncture / Unknown 03/14/2025 12:34 AM EDT 03/14/2025 12:44 AM EDT us Staci Castro LAB BLOOD ORDERABLES Final Resul t [facility] [address] [place] [address] * Bronchoalveolar Lavage Cell Count W/ Diff (03/13/2025 11:34 AM EDT) Neutrophils %, BAL 10 % LAB HEMATOLOGY METHOD 03/13/2025 5:20 PM EDT [facility] Lymphocytes %, BAL 0 % LAB HEMATOLOGY METHOD 03/13/2025 5:20 PM EDT [facility] Monocytes/Macrop hages %, BAL 84 % LAB HEMATOLOGY METHOD 03/13/2025 5:20 PM EDT [facility] Eosinophils %, BAL 0 % LAB HEMATOLOGY METHOD 03/13/2025 5:20 PM EDT [facility] Basophils %, BAL 0 % LAB HEMATOLOGY METHOD 03/13/2025 5:20 PM EDT [facility] Squamous Cells %, BAL 0 % LAB HEMATOLOGY METHOD 03/13/2025 5:20 PM EDT [facility] Bronchial Cells %, BAL 6 % LAB HEMATOLOGY METHOD 03/13/2025 5:20 PM EDT [facility] Other Cells %, BAL 0 % LAB HEMATOLOGY METHOD 03/13/2025 5:20 PM EDT [facility] Comment, BAL None LAB HEMATOLOGY METHOD 03/13/2025 5:20 PM EDT [facility] Comment:This is an appended report. These results have been appended to a previously preliminary verified report. Total Nucleated Cell Count, BAL 272 uL LAB HEMATOLOGY METHOD 03/13/2025 5:20 PM EDT [facility] Comment:Clot present, may af fect results. Test performed by manual method. Bronchoalveolar Lavage Structure of middle lobe of right lung / Unknown 03/13/2025 11:34 AM EDT 03/13/2025 11:46 AM EDT Gt De La Paz MD LAB BODY FLUIDS AND STOOLS ORD ERABLES Final Result Performing Organization Address City/[facility]/ZIP Co de Phone Number [facility] [address] [place] [address] * Fungal Culture, Respiratory and ADAIR (03/13/2025 11:34 AM EDT) Culture No Fungal Growth at 6 Weeks 04/24/2025 10:12 AM EDT [facility] DAAIR No fungal elements seen 04/24/2025 10:12 AM EDT [facility] Bronchoalveolar Lavage Bronchoalveolar lavage fluid specimen / Unknown 03/13/2025 11:34 AM EDT 03/13/2025 1:08 PM EDT us Gt De La Paz MD LAB MICROBIOLOGY - GENERAL ORD ERABLES Final Result Performing Organization Address City/[facility]/ZIP Co de Phone Number [facility] [address] [place] [address] * BAL Comprehensive Respiratory Panel by PCR (03/13/2025 11:34 AM EDT) BAL Comprehensive PCR Result Not Detected for all analytes Not Detected for all analytes 03/13/2025 1:44 PM EDT [facility] Bronchoalveolar Lavage Bronchoalveolar lavage fluid specimen / Unknown 03/13/2025 11:34 AM EDT 03/13/2025 1:08 PM EDT Narrative [facility] - 03/13/2025 1:44 PM EDT [...] developed and its performance characteristics determined by [facility] as appropriate for clinical purposes. This assay has not been cleared or approved by the FDA, but is performed in a CLIA regulated laboratory that is performed in a CLIA regulated laboratory that is qualified to perform high-complexity testing. [facility] is certified under the Clinical Laboratory Improvement Amendments of 1988 (CLIA-88) as qualified to perform high complexity clinical laboratory testing. Gt De La Paz MD LAB MICROBIOLOGY - GENERAL ORD ERABLES Final Result [facility] [address] [place] [id number] * Pneumocystis Jirovecii by PCR (03/13/2025 11:34 AM EDT) P. Jirovecii by PCR Not Detected 03/17/2025 12:16 AM EDT [facility] P. Jirovecii Source BAL 03/17/2025 12:16 AM EDT [facility]) Bronchoalveolar Lavage Bronchoalveolar lavage fluid specimen / Unknown 03/13/2025 11:34 AM EDT 03/13/2025 11:46 AM EDT Narrative [facility]) - 03/17/2025 12:16 AM EDT NOT DETECTED - A negative result does not rule out the presence of PCR inhibitors in the patient specimen or assay specific nucleic acid in concentrations below the level of detection by the assay. This test was developed and its performance characteristics determined by [facility]. It has not been cleared or approved by the US Food and Drug Administration. This test was performed in a CLIA certified laboratory and is intended for clinical purposes. Performed By: [facility] [address] [place] [address] Is Consultant: Filippo Cortes MD, PhD CLIA Number: [id number] us Gt De La Paz MD LAB REF LAB BLOOD AND FLUID OR D Final Result [facility] [address] [place] [address] * Body fluid, cytospin, pathologist interpretation (03/13/2025 11:34 AM EDT) Specimen Type Bronchoalveolar Lavage LAB HEMATOLOGY METHOD 03/14/2025 3:40 PM EDT [facility] Specimen Source, Body Fluid Lung, Right Middle Lobe LAB HEMATOLOGY METHOD 03/14/2025 3:40 PM EDT [facility] Clinical Diagnosis, Body Fluid Concern for R sided post-obstructive pneumonia in setting of pulmonary mass LAB HEMATOLOGY METHOD 03/14/2025 3:40 PM EDT [facility] Interpretation , Body Fluid No evidence of malignancy Predominantly alveolar macrophages Mild acute inflammatory cells A resident was involved in the service. I attest I examined the relevant preparations for the specimens and confirmed the diagnosis or interpretation. 03/14/2025 3:40 PM EDT [facility] Pathologist Signature, Body Fluid 03/14/2025 3:40 PM EDT [facility] Comment:Reviewed by: Mónica colin MD LAB CP ASR DISCLAIMER Yes 03/14/2025 3:40 PM EDT [facility] Bronchoalveolar Lavage Structure of middle lobe of right lung / Unknown 03/13/2025 11:34 AM EDT 03/13/2025 11:46 AM EDT us Gt De La Paz MD LAB BODY FLUIDS AND STOOLS ORD ERABLES Final Result [facility] [address] [place] [address] * Aspergillus galactomannan antigen (03/13/2025 11:34 AM [...] Aspergillus Galactomannan EIA is a product of [employer] and is FDA approved for in vitro diagnostic use. Testing Performed at: [facility] [address] [place] [address], [facility] [address] [place] [address] Application Architect Manager: Dominick Gonsalez, PhD BCLMario Alberto ([facility]) CLIA # [id number] FLAG Interpretation: A = Abnormal, H = High, L = Low Bronchoalveolar Lavage Bronchoalveolar lavage fluid specimen / Unknown 03/13/2025 11:34 AM EDT 03/13/2025 11:46 AM EDT Narrative LUISA HUERTA) - 03/15/2025 6:38 PM EDT Release to patient in [facility]->Immediate us Gt De La Paz MD LAB BODY FLUIDS AND STOOLS ORD ERABLES Final Result LUISA HUERTA) * Quantitative BAL/PAL/Bronch Wash Culture and Gram StainBronchoalveolar Lavage, Right Middle Lobe (03/13/2025 11:34 AM EDT) Culture No growth at day 2 2024 8:18 AM EDT [facility] Gram Stain Result No polymorphonuclear leukocytes seen 03/15/2025 8:18 AM EDT [facility] Gram Stain Result No organisms seen 03/15/2025 8:18 AM EDT [facility] Bronchoalveolar Lavage Bronchoalveolar lavage fluid specimen / Unknown 03/13/2025 11:34 AM EDT 03/13/2025 1:08 PM EDT us Gt De La Paz MD LAB MICROBIOLOGY - GENERAL ORD ERABLES Final Result [facility] [address] [place] [address] * Non-Gynecologic Cytology, Fluid (03/13/2025 11:34 AM EDT) Case Report Cytology Case: [id number] Authorizing Provider: Gt De La Paz MD Collected: 03/13/2025 1134 Ordering Location: [facility] A Inpatient Received: 03/14/2025 0828 Pathologist: Kai Gilbert MD Specimen: Bronchial Washing, Right Middle Lobe, BRONCHIAL WASHING, RIGHT MIDDLE LOBE 03/14/2025 5:45 PM EDT [facility] Final Diagnosis A. BRONCHIAL WASHING, RIGHT MIDDLE LOBE - NO EVIDENCE OF MALIGNANCY. NO VIRAL CHANGES IDENTIFIED, PREDOMINANTLY MACROPHAGES, GMS STAIN IS NEGATIVE FOR ORGANISMS. 03/14/2025 5:45 PM EDT [facility] at 1745 EDT Clinical History possible malignancy 03/14/2025 5:45 PM EDT [facility] Previous Cancer No 5:45 PM EDT [facility] Gross Description A. BRONCHIAL WASHING, RIGHT MIDDLE LOBE 20 ml's hazy fluid processed as thin prep and GMS 03/14/2025 5:45 PM EDT [facility] Non-Gynecologica l (Select Specimen Source) Specimen from lung obtained by bronchial washing procedure / Unknown 03/13/2025 11:34 AM EDT 03/14/2025 8:28 AM EDT us Gt De La Paz MD LAB CYTOLOGY ORDERABLES Final Result [facility] [address] [place] [address] * BEDSIDE BRONCHOSCOPY (03/13/2025 10:30 AM EDT) Narrative Gt De La Paz MD - 03/13/2025 10:30 AM EDT Gt De La Paz MD 03/14/2025 9:30 AM Bronchoscopy Performed by: Gt De La Paz MD Authorized by: Gt De La Paz MD us Gt De La Paz MD IN CLINIC/BEDSIDE ORDERABLES E dited Result - Final * CT CRITICAL CARE, E/M 30-74 MINUTES (03/13/2025 7:06 [...] LAB HEMATOLOGY METHOD 03/13/2025 1:12 AM EDT [facility] Blood Venous blood specimen / Unknown Venipuncture / Unknown 03/13/2025 12:57 AM EDT 03/13/2025 1:09 AM EDT us Delta Wilhelm MD LAB BLOOD ORDERABLES Final Result Performing Organization Address City/[facility] Co de Phone Number [facility] [address] [place] [address] * Ionized calcium, serum (03/13/2025 12:57 AM EDT) Ionized Calcium, Serum 4.9 4.6 - 5.3 mg/dL LAB HEMATOLOGY METHOD 03/13/2025 1:45 AM EDT [facility] Blood Venous blood specimen / Unknown Venipuncture / Unknown 03/13/2025 12:57 AM EDT 03/13/2025 1:12 AM EDT us Delta Wilhelm MD LAB BLOOD ORDERABLES Final Result Performing Organization Address [facility] [place] [place] [address] * Phosphorus, Plasma (03/13/2025 12:57 AM EDT) Phosphorus, Plasma 2.8 2.5 - 4.5 mg/dL 03/13/2025 1:41 AM EDT [facility] Blood Venous blood specimen / Unknown Venipuncture / Unknown 03/13/2025 12:57 AM EDT 03/13/2025 1:12 AM EDT us Delta Wilhelm MD LAB BLOOD ORDERABLES Final Result Performing Organization Address City/[facility] Co de Phone Number [facility] [address] [place] [address] * (ABNORMAL) Magnesium, Plasma (03/13/2025 12:57 AM EDT) Only the most recent of2 resultswithin the time period is included. Magnesium, Plasma 1.7(L) 1.9 - 2.4 mg/dL 03/13/2025 1:41 AM EDT [facility] Blood Venous blood specimen / Unknown Venipuncture / Unknown 03/13/2025 12:57 AM EDT 03/13/2025 1:12 AM EDT us Delta Wilhelm MD LAB BLOOD ORDERABLES Final Result [facility] [address] [place] [address] * (ABNORMAL) Comprehensive metabolic panel (03/13/2025 12:57 AM EDT) Only the most recent of2 resultswithin the time period is included. Glucose, Plasma 148(H) 74 - 99 mg/dL 03/13/2025 1:41 AM EDT [facility] BUN, Plasma 31(H) 8 - 23 mg/dL 03/13/2025 1:41 AM EDT [facility] Creatinine, Plasma 2.10(H) 0.70 - 1.20 mg/dL 03/13/2025 1:41 AM EDT [facility] BUN/Creatinine Ratio 15 03/13/2025 1:41 AM EDT [facility] Sodium, Plasma 136 136 - 145 mmol/L 03/13/2025 1:41 AM EDT [facility] Potassium, Plasma 4.5 3.6 - 4.9 mmol/L 03/13/2025 1:41 AM EDT [facility] Chloride, Plasma 99 97 - 107 mmol/L 03/13/2025 1:41 AM EDT [facility] CO2, Plasma 25 22 - 29 mmol/L 03/13/2025 1:41 AM EDT [facility] Anion Gap 12 6 - 16 mmol/L 03/13/2025 1:41 AM EDT [facility] Total Calcium, Plasma 9.2 8.9 - 10.2 mg/dL 03/13/2025 1:41 AM EDT [facility] Total Protein 6.5 6.3 - 7.9 g/dL 03/13/2025 1:41 AM EDT [facility] Albumin, Plasma 3.9 3.5 - 5.2 g/dL 03/13/2025 1:41 AM EDT [facility] AST, Plasma 16 10 - 50 U/L 03/13/2025 1:41 AM EDT [facility] ALT, Plasma 10 10 - 50 U/L 03/13/2025 1:41 AM EDT [facility] Alkaline Phosphatase, Plasma 77 40 - 115 U/L 03/13/2025 1:41 AM EDT [facility] Total Bilirubin, Plasma 0.3 0.2 - 1.1 mg/dL 03/13/2025 1:41 AM EDT [facility] eGFRcr 32.8 mL/min/1.7 3m*2 03/13/2025 1:41 AM EDT [facility] Comment:Reported eGFRcr in m L/min/1.73m2 is based the CKD-EPI 2020 equation that does not use a race coefficient. Blood Venous blood specimen / Unknown Venipuncture / Unknown 03/13/2025 12:57 AM EDT 03/13/2025 1:12 AM EDT us Delta Wilhelm MD LAB BLOOD ORDERABLES Final Result Performing Organization Address City/[facility]/ZIP Co de Phone Number [facility] [address] [place] [address] * Urinalysis Microscopic Examination (03/12/2025 11:05 PM EDT) Urine Urine specimen obtained by clean catch procedure / Unknown Non-blood Collection / Unknown 03/12/2025 11:05 PM EDT 03/12/2025 11:11 PM EDT us Delta Wilhelm MD LAB URINE ORDERABLES Final Result Performing Organization Address City/[facility]/ZIP Co de Phone Number [facility] [address] [place] [address] * (ABNORMAL) Opiates Confirm Urine (03/12/2025 11:05 PM EDT) Codeine <50 <50 ng/mL 03/15/2025 5:06 PM EDT [facility] Codeine Glucuronide <50 <50 ng/mL 03/15/2025 5:06 PM EDT [facility] Desmethyl Tramadol <50 <50 ng/mL 03/15/2025 5:06 PM EDT [facility] EDDP - Methadone Metabolite <50 <50 ng/mL 03/15/2025 5:06 PM EDT [facility] Hydrocodone 460(H) <50 ng/mL 03/15/2025 5:06 PM EDT [facility] Hydromorphone 177(H) <50 ng/mL 03/15/2025 5:06 PM EDT [facility] Hydromorphone Glucuronide >1,000(H) <50 ng/mL 03/15/2025 5:06 PM EDT [facility] Comment:Metabolite of Hydrom orphone Meperidine <50 <50 ng/mL 03/15/2025 5:06 PM EDT [facility] Methadone <50 <50 ng/mL 03/15/2025 5:06 PM EDT [facility] 6 Monoacetyl morphine <10 <10 ng/mL 03/15/2025 5:06 PM EDT [facility] Morphine <50 <50 ng/mL 03/15/2025 5:06 PM EDT [facility] Morphine Glucuronide <50 <50 ng/mL 03/15/2025 5:06 PM EDT [facility] Comment:Metabolite of Morphi ne Naloxone <50 <50 ng/mL 03/15/2025 5:06 PM EDT [facility] Naloxone Glucuronide <50 <50 ng/mL 03/15/2025 5:06 PM EDT [facility] Comment:Metabolite of Naloxo ne Normeperidine <50 <50 ng/mL 03/15/2025 5:06 PM EDT [facility] Tramadol <50 <50 ng/mL 03/15/2025 5:06 PM EDT [facility] Urine Urine specimen obtained by clean catch procedure / Unknown Non-blood Collection / Unknown 03/12/2025 11:05 PM EDT 03/12/2025 11:11 PM EDT Narrative [facility] - 03/15/2025 5:06 PM EDT Drug analysis is confirmed by LC-MS/MS (LC Tandem Mass Spectrometry) on Urine specimens. This test was developed and its performance characteristics determined by [facility]. It has not been cleared or approved by the FDA. The laboratory is regulated under CLIA as qualified to perform high-complexity testing. This test is used for clinical purposes. Testing is performed at the [facility], Special Chemistry Laboratory. Delta Wilhelm MD LAB URINE ORDERABLES Final Result Performing Organization Address City/[facility]/ZIP Co de Phone Number [facility] [address] [place] [address] * Drug Abuse Screen Urine (03/12/2025 11:05 PM EDT) [facility] Signature Amphetamine Screen Urine Negative Cutoff: 500 ng/mL 03/12/2025 11:44 PM EDT [facility] Benzodiazepines Screen Urine Negative Cutoff: 200 ng/mL 03/12/2025 11:44 PM EDT [facility] Cannabinoid Screen Urine Negative Cutoff: 50 ng/mL 03/12/2025 11:44 PM EDT [facility] Cocaine Screen Urine Negative Cutoff: 300 ng/mL 03/12/2025 11:44 PM EDT [facility] Barbiturate Screen Urine Negative Cutoff: 200 ng/mL 03/12/2025 11:44 PM EDT [facility] Opiate Screen Urine Presumptive positive. Confirmation by LC-MS/MS to follow. Cutoff: 300 ng/mL 03/12/2025 11:44 PM EDT [facility] Methadone Screen Urine Negative Cutoff: 300 ng/mL 03/12/2025 11:44 PM EDT [facility] Buprenorphine Screen Urine Negative Cutoff: 10 ng/mL 03/12/2025 11:44 PM EDT [facility] Fentanyl Screen Urine Presumptive positive. Confirmation by LC-MS/MS to follow. Cutoff: 1 ng/mL 03/12/2025 11:44 PM EDT [facility] Oxycodone Screen Urine Negative Cutoff: 100 ng/mL 03/12/2025 11:44 PM EDT [facility] Urine Urine specimen obtained by clean catch procedure / Unknown Non-blood Collection / Unknown 03/12/2025 11:05 PM EDT 03/12/2025 11:11 PM EDT Delta Wilhelm MD LAB URINE ORDERABLES Final Result Performing Organization Address [facility]/ZIP Co de Phone Number [facility] [address] [place] [address] * (ABNORMAL) Fentanyl Urine Confirm (03/12/2025 11:05 PM EDT) Fentanyl 3(H) <1 ng/mL 03/15/2025 5:06 PM EDT [facility] Norfentanyl 5(H) <2 ng/mL 03/15/2025 5:06 PM EDT [facility] Urine Urine specimen obtained by clean catch procedure / Unknown Non-blood Collection / Unknown 03/12/2025 11:05 PM EDT 03/12/2025 11:11 PM EDT Narrative [facility] - 03/15/2025 5:06 PM EDT Drug analysis is confirmed by LC-MS/MS (LC Tandem Mass Spectrometry) on Urine specimens. This test was developed and its performance characteristics determined by [facility]. It has not been cleared or approved by the FDA. The laboratory is regulated under CLIA as qualified to perform high-complexity testing. This test is used for clinical purposes. Testing is performed at the [facility], Special Chemistry Laboratory. Delta Wilhelm MD LAB URINE ORDERABLES Final Result [facility] [address] [place] [address] * (ABNORMAL) Urinalysis with reflex microscopic (Culture NOT Included) (03/12/2025 11:05 PM EDT) Color, Urine Yellow LAB URINALYSIS - AUTOMATED METHOD 03/13/2025 12:17 AM EDT [facility] Clarity, Urine Clear LAB URINALYSIS - AUTOMATED METHOD 03/13/2025 12:17 AM EDT [facility] Spec Stanton, Urine >1.030(H) 1.005 - 1.030 LAB URINALYSIS - AUTOMATED METHOD 03/13/2025 12:17 AM EDT [facility] pH, Urine 7.0 5.0 - 8.0 LAB URINALYSIS - AUTOMATED METHOD 03/13/2025 12:17 AM EDT [facility] Protein, Urine 30(A) Negative mg/dL LAB URINALYSIS - AUTOMATED METHOD 03/13/2025 12:17 AM EDT [facility] Glucose, Urine 100(A) Negative mg/dL LAB URINALYSIS - AUTOMATED METHOD 03/13/2025 12:17 AM EDT [facility] Ketones, Urine Negative Negative mg/dL LAB URINALYSIS - AUTOMATED METHOD 03/13/2025 12:17 AM EDT [facility] Blood, Urine Large(A) Negative LAB URINALYSIS - AUTOMATED METHOD 03/13/2025 12:17 AM EDT [facility] Bilirubin, Urine Negative Negative LAB URINALYSIS - AUTOMATED METHOD 03/13/2025 12:17 AM EDT [facility] Urobilinogen, Urine 0.2 0.2 to 1.0 mg/dL LAB URINALYSIS - AUTOMATED METHOD 03/13/2025 12:17 AM EDT [facility] Leukocytes, Urine Moderate(A) Negative LAB URINALYSIS - AUTOMATED METHOD 03/13/2025 12:17 AM EDT [facility] Nitrite, Urine Negative Negative LAB URINALYSIS - AUTOMATED METHOD 03/13/2025 12:17 AM EDT [facility] RBC, Urine >50(A) 0 to 3 /HPF LAB URINALYSIS - AUTOMATED METHOD 03/13/2025 12:17 AM EDT [facility] WBC, Urine >50(A) 0 to 5 /HPF LAB URINALYSIS - AUTOMATED METHOD 03/13/2025 12:17 AM T [facility] Squamous Epithelial Cells 0 - 2 0 to 5 /HPF LAB URINALYSIS - AUTOMATED METHOD 03/13/2025 12:17 AM EDT [facility] Hyaline Casts 0 - 2 0 to 5 /LPF LAB URINALYSIS - AUTOMATED METHOD 03/13/2025 12:17 AM EDT [facility] Bacteria, Urine Negative Negative LAB URINALYSIS - AUTOMATED METHOD 03/13/2025 12:17 AM EDT [facility] Urine Urine specimen obtained by clean catch procedure / Unknown Non-blood Collection / Unknown 03/12/2025 11:05 PM EDT 03/12/2025 11:11 PM EDT Delta Wilhelm MD LAB URINE ORDERABLES Final Result Performing Organization Address [facility] Co de Phone Number [facility] [address] [place] [address] * Shona auris Surveillance by PCR (03/12/2025 10:18 PM EDT) Shona auris PCR Result Not Detected Not Detected 03/14/2025 6:39 AM EDT [facility] Swab (Axilla and Groin) Non-blood Collection / Unknown 03/12/2025 10:18 PM EDT 03/12/2025 10:22 PM EDT Narrative [facility] - 03/14/2025 6:39 AM EDT This PCR assay was developed and its performance characteristics determined by [facility] as appropriate for clinical purposes. This assay has not been cleared or approved by the FDA, but is performed in a CLIA regulated laboratory that is qualified to perform high-complexity testing. Delta Wilhelm MD LAB MICROBIOLOGY - GENERAL ORDERABLES Final Result Performing Organization Address [facility] Co de Phone Number [facility] [address] [place] [address] * Multi Drug Resistance Test (03/12/2025 10:18 PM EDT) Pathologist [facility] Culture No growth at day 1 03/14/2025 8:08 AM EDT [facility] Swab (Nares and Jazmyn Rectal) Non-blood Collection / Unknown 03/12/2025 10:18 PM EDT 03/12/2025 10:22 PM EDT Narrative [facility] - 03/14/2025 8:08 AM EDT This test was developed and its performance characteristics determined by the [facility]. Although the media is FDA-approved, it is not FDA-approved for all specimen types submitted. The FDA has determined that such clearance or approval is not necessary. This test is used for surveillance purposes. It should not be regarded as investigational or for research. The [facility] is certified under the Clinical Laboratory Improvement Amendments of 1988 (CLIA-88) as qualified to perform high complexity clinical laboratory testing. Delta Wilhelm MD LAB MICROBIOLOGY - GENERAL ORDERABLES Final Result Performing Organization Address City/[facility]/ZIP Co de Phone Number [facility] [address] [place] [address] * (ABNORMAL) Troponin T, High Sensitivity, 2 Hour, Plasma (03/12/2025 10:17 PM EDT) Troponin T, High Sensitivity, 2 Hour 28(H) <19 ng/L 03/12/2025 10:50 PM EDT [facility] Troponin Delta Interpretation Not Calculated 03/12/2025 10:50 PM EDT [facility] Comment:Specimen not collect ed within acceptable timeframe. Delta will not be calculated. Blood Venous blood specimen / Unknown Venipuncture / Unknown 03/12/2025 10:17 PM EDT 03/12/2025 10:22 PM EDT Staci Castro LAB BLOOD ORDERABLES Final Resul t Performing Organization Address [facility] Co de Phone Number [facility] [address] [place] [address] * (ABNORMAL) Potassium (03/12/2025 10:17 PM EDT) Potassium, Plasma 6.3(H) 3.6 - 4.9 mmol/L 03/12/2025 10:44 PM EDT [facility] Blood Venous blood specimen / Unknown Venipuncture / Unknown 03/12/2025 10:17 PM EDT 03/12/2025 10:22 PM EDT Delta Wilhelm MD LAB BLOOD ORDERABLES Final Result Performing Organization Address City/[facility]/ZIP Co de Phone Number [facility] [address] [place] [address] * XR Chest 1 View (03/12/2025 9:21 [...] of the abdomen. COMPARISON: None. FINDINGS: Limited [id number] abdominal radiograph for the purpose of locating tube position. The tip of the nasogastric tube is within the proximal stomach. Procedure Note Libra Balbuena MD - 03/12/2025 CLINICAL INDICATION: Orogastric tube TECHNIQUE: Supine radiograph of the abdomen. COMPARISON: None. FINDINGS: Limited [id number] abdominal radiograph for the purpose of locatingtube [...] at day 5 03/17/2025 10:01 PM EDT [facility] Blood Structure of left forearm / Unknown Venipuncture / Unknown 03/12/2025 9:12 PM EDT 03/12/2025 9:55 PM EDT Narrative [facility] - 03/17/2025 10:01 PM EDT Low blood volume submitted, results may be compromised us Staci Castro LAB MICROBIOLOGY - GENERAL ORDER ALLEN Final Result [facility] [address] [place] [address] * Methemoglobin (03/12/2025 9:07 PM EDT) Methemoglobin 0.6 0.0 - 1.5 % LAB HEMATOLOGY METHOD 03/12/2025 9:18 PM EDT [facility] Blood Venous blood specimen / Unknown Venipuncture / Unknown 03/12/2025 9:07 PM EDT 03/12/2025 9:17 PM EDT us Staci Castro LAB BLOOD ORDERABLES Final Resul t Performing Organization Address City/[facility]/[place] [address] * Streptococcus pneumoniae and Legionella Urinary Antigen (03/12/2025 9:00 PM EDT) Legionella pneumophila serogroup 1 Antigen Result (Urine) Negative Negative 03/12/2025 9:44 PM EDT [facility] Streptococcus pneumoniae Antigen Result (Urine) Negative Negative 03/12/2025 9:44 PM EDT [facility] Urine Urine specimen obtained by clean catch procedure / Unknown Non-blood Collection / Unknown 03/12/2025 9:00 PM EDT 03/12/2025 9:19 PM EDT us Staci WALKER MICROBIOLOGY - GENERAL ORDER ALLEN Final Result Performing Organization Address [facility] [place] [address] * (ABNORMAL) POCT arterial blood gas gem (03/12/2025 8:57 PM EDT) pH, Arterial 7.34 7.31 - 7.42 03/12/2025 8:59 PM EDT [facility] pCO2, Arterial 53(H) 32 - 45 mm Hg 03/12/2025 8:59 PM EDT [facility] pO2, Arterial 75 >70 mm Hg 03/12/2025 8:59 PM EDT [facility] SO2, Arterial 98 94 - 98 % 03/12/2025 8:59 PM EDT [facility] FIO2 100.0 % 03/12/2025 8:59 PM EDT [facility] Base Excess, Arterial 1.9 -2 - 3 mmol/L 03/12/2025 8:59 PM EDT [facility] HCO3, Arterial 28.6(H) 22 - 26 mmol/L 03/12/2025 8:59 PM EDT [facility] Total Hemoglobin, Arterial, Whole Blood 11.8(L) 13.7 - 17.5 g/dL 03/12/2025 8:59 PM EDT [facility] Hematocrit, Arterial 35.0(L) 40 - 51.0 % 03/12/2025 8:59 PM EDT [facility] Sodium, Arterial 132(L) 136 - 145 mmol/L 03/12/2025 8:59 PM EDT [facility] Potassium, Arterial 6.2(H) 3.6 - 4.9 mmol/L 03/12/2025 8:59 PM EDT [facility] Comment:Hemolyzed, result ma y be falsely increased. Chloride, Whole Blood 101 97 - 107 mmol/L 03/12/2025 8:59 PM EDT [facility] Glucose, Arterial 121(H) 74 - 99 mg/dL 03/12/2025 8:59 PM EDT [facility] Ionized Calcium, Arterial 4.6 4.6 - 5.1 mg/dL 03/12/2025 8:59 PM EDT [facility] Lactate, Arterial 0.7 0.5 - 1.6 mmol/L 03/12/2025 8:59 PM EDT [facility] Body Temperature 37.2 Celsius 03/12/2025 8:59 PM EDT [facility] pH, Temp Corrected, Arterial 7.34 7.31 - 7.42 03/12/2025 8:59 PM EDT [facility] pCO2, Temp Corrected, Arterial 53(H) 32 - 45 mm Hg 03/12/2025 8:59 PM EDT [facility] pO2, Temp Corrected, Arterial 76 >70 mm Hg 03/12/2025 8:59 PM EDT [facility] Er Tech ID Dwayne Bose 03/12/2025 8:59 PM EDT [facility] Blood, Arterial Whole blood specimen / Unknown 03/12/2025 8:57 PM EDT 03/12/2025 8:59 PM EDT us Staci Castro LAB POINT OF CARE TE ST DOCKED DEVICE UNSOLICITED RESULTS Final Result [facility] [address] [place] [address] * SARS CoV-2/COVID-19 by PCR - Rapid (03/12/2025 8:53 PM EDT) [facility] SARS CoV-2/COVID-1 9 RNA PCR Result Not Detected Not Detected 03/12/2025 10:09 PM EDT [facility] Swab Nasopharyngeal structure / Unknown Non-blood Collection / Unknown 03/12/2025 8:53 PM EDT 03/12/2025 9:20 PM EDT Narrative [facility] - 03/12/2025 10:09 PM EDT [...] This test was performed on the Xpert XpScryer SARS CoV-2 Plus assay test, a PCR- based method. Negative results should be considered presumptive and do not preclude current or future infection obtained through community transmission or other exposures. Negative results must be considered in the context of an individual's recent exposures, history, presence of clinical signs and symptoms consistent with COVID-19. Staci Castro LAB MICROBIOLOGY - GENERAL ORDER ALLEN Final Result [facility] [address] [place] [address] * Nasopharyngeal Respiratory Panel (03/12/2025 8:53 PM EDT) [facility] Nasopharyngeal Respiratory PCR Interpretation Not Detected for all analytes Not Detected for all analytes 03/13/2025 1:10 AM EDT [facility] Swab Nasopharyngeal structure / Unknown Non-blood Collection / Unknown 03/12/2025 8:53 PM EDT 03/12/2025 9:20 PM EDT Narrative [facility] - 03/13/2025 1:10 AM EDT [...] Respiratory PCR Panel is performed using the IND [employer] ePlex instrument. This test is FDA approved for use with Nasopharyngeal swabs only. This test is used for clinical purposes. It should not be regarded as investigational or for research. The [facility] is certified under the Clinical Laboratory Improvement Amendments of 1988 (CLIA-88) as qualified to perform high complexity clinical laboratory testing. us Stacielio Castro LAB MICROBIOLOGY - GENERAL ORDER ALLEN Final Result Performing Organization Address [facility]/[place] [address] * Methicillin Resistant Staphylococcus aureus (MRSA) by PCR (03/12/2025 8:53 PM EDT) Methicillin Resistant Staphylococcus aureus (MRSA) by PCR Not Detected Not Detected 03/12/2025 10:41 PM EDT [facility] Swab Both anterior nares / Unknown Non-blood Collection / Unknown 03/12/2025 8:53 PM EDT 03/12/2025 9:20 PM EDT Narrative [facility] - 03/12/2025 10:41 PM EDT [...] ORDER ALLEN Final Result Performing Organization Address City/[facility] [place] [place] [address] * EKG now - STAT (adult) (03/12/2025 8:49 PM EDT) EKG DIAGNOSIS CLASS Abnormal MUSE ECG Ventricular Rate 62 BPM MUSE ECG Atrial Rate [address] Interval 168 ms MUSE ECG QRSD Interval 128 ms MUSE ECG QT Interval 416 ms MUSE ECG QTC Interval 422 ms MUSE ECG P [place] 64 degrees MUSE ECG R [place] 81 degrees MUSE ECG T Wave [place] 81 degrees MUSE ECG Diagnosis Normal sinus rhythm MUSE ECG Diagnosis Right bundle branch block MUSE ECG Diagnosis Abnormal ECG MUSE ECG Diagnosis MUSE ECG Diagnosis Confirmed by Chino Witt ([id number]) on 03/13/2025 8:51:16 PM MUSE ECG 03/12/2025 8:49 PM EDT 03/13/2025 8:51 PM EDT us Staci Castro ECG ORDERABLES Final Result MUSE ECG * ED HIV 1/2 Antibody/Antigen Screen w/Reflex to HIV 1/2 Differentiation (03/12/2025 8:48 PM EDT) HIV 1 & 2 Antibody/Antigen Screen Non Reactive Non Reactive 03/12/2025 9:37 PM EDT [facility] Comment:Screening for HIV 1 & 2 antibodies, and P24 antigen is NONREACTIVE. No confirmatory testing is required. Blood Venous blood specimen / Unknown Venipuncture / Unknown 03/12/2025 8:48 PM EDT 03/12/2025 9:00 PM EDT us Staci Castro LAB BLOOD ORDERABLES Final Resul t [facility] [address] [place] [address] * TSH Reflex FT4 (03/12/2025 8:48 PM EDT) Thyroid Stimulating Hormone, Plasma 2.54 0.40 - 4.20 uIU/mL 03/12/2025 10:27 PM EDT [facility] Blood Venous blood specimen / Unknown Venipuncture / Unknown 03/12/2025 8:48 PM EDT 03/12/2025 8:59 PM EDT Delta Wilhelm MD LAB BLOOD ORDERABLES Final Result [facility] [address] [place] [address] * (ABNORMAL) Troponin now and 120 min (03/12/2025 8:48 PM EDT) Troponin T, High Sensitivity, 0 Hour 32(H) <19 ng/L 03/12/2025 9:37 PM EDT [facility] Blood Venous blood specimen / Unknown Venipuncture / Unknown 03/12/2025 8:48 PM EDT 03/12/2025 8:59 PM EDT us Staci Castro LAB BLOOD ORDERABLES Final Resul t Performing Organization Address [facility] Co de Phone Number [facility] [address] [place] [address] * Light Green Top (03/12/2025 8:48 PM EDT) Extra Hold for add-ons 03/13/2025 12:01 AM EDT [facility] Comment:Auto resulted. Blood Venous blood specimen / Unknown 03/12/2025 8:48 PM EDT 03/12/2025 9:20 PM EDT us Delta Wilhelm MD LAB BLOOD ORDERABLES Final Result Performing Organization Address [facility]/ZIP Co de Phone Number [facility] [address] [place] [address] * Light Blue Top (03/12/2025 8:48 PM EDT) Extra Hold for add-ons 03/13/2025 12:01 AM EDT [facility] Comment:Auto resulted. Blood Venous blood specimen / Unknown 03/12/2025 8:48 PM EDT 03/12/2025 9:20 PM EDT us Delta Wilhelm MD LAB BLOOD ORDERABLES Final Result Performing Organization Address City/[facility]/ZIP Co de Phone Number [facility] [address] [place] [address] * (ABNORMAL) Procalcitonin (03/12/2025 8:48 PM EDT) Pathologist [facility] Procalcitonin, Plasma 0.11(H) <0.09 ng/mL 03/12/2025 9:37 PM EDT [facility] Blood Venous blood specimen / Unknown Venipuncture / Unknown 03/12/2025 8:48 PM EDT 03/12/2025 8:59 PM EDT Narrative [facility] - 03/12/2025 9:37 PM EDT [...] predict 28 day mortality risk. Please consult [email or web address] for more information. Test performed at [facility], Core Laboratory. us Staci Castro LAB BLOOD ORDERABLES Final Resul t Performing Organization Address [facility] Co de Phone Number [facility] [address] [place] [address] * Hepatitis C Antibody - ED (03/12/2025 8:48 PM EDT) Pathologist [facility] Hepatitis C Antibody Negative Negative 03/12/2025 9:38 PM EDT [facility] Blood Venous blood specimen / Unknown Venipuncture / Unknown 03/12/2025 8:48 PM EDT 03/12/2025 8:59 PM EDT us Staci Castro LAB BLOOD ORDERABLES Final Resul t Performing Organization Address [facility] Co de Phone Number [facility] [address] [place] [address] * (ABNORMAL) PT-INR (03/12/2025 8:48 PM EDT) Prothrombin Time 14.6(H) 12.0 - 14.3 sec 03/12/2025 9:06 PM EDT [facility] INR 1.2(H) 0.9 - 1.1 03/12/2025 9:06 PM EDT [facility] Blood Venous blood specimen / Unknown Venipuncture / Unknown 03/12/2025 8:48 PM EDT 03/12/2025 8:53 PM EDT Narrative [facility] - 03/12/2025 9:06 PM EDT OPTIMAL INR RANGES FOR PATIENT ON ORAL ANTICOAGULANT THERAPY Prevention of venous thromboembolism INR 2.0 to 3.0 In patients with heart disease: Atrial fibrillation INR 2.0 to 3.0 Valvular heart disease INR 2.0 to 3.0 Tissue heart valves INR 2.0 to 3.0 Mechanical prosthetic valves INR 2.5 to 3.5 Prevention of recurrent DC INR 2.5 to 3.5 us Staci Castro LAB BLOOD ORDERABLES Final Resul t [facility] [address] [place] [address] * (ABNORMAL) CBC w/diff (03/12/2025 8:48 PM EDT) WBC Count 9.02 3.70 - 10.30 10*3/uL LAB HEMATOLOGY METHOD 03/12/2025 8:56 PM EDT [facility] RBC Count 4.48(L) 4.60 - 6.10 10*6/uL LAB HEMATOLOGY METHOD 03/12/2025 8:56 PM EDT [facility] HGB 12.3(L) 13.7 - 17.5 g/dL LAB HEMATOLOGY METHOD 03/12/2025 8:56 PM EDT [facility] HCT 39.2(L) 40.0 - 51.0 % LAB HEMATOLOGY METHOD 03/12/2025 8:56 PM EDT [facility] Platelet Count 196 155 - 369 10*3/uL LAB HEMATOLOGY METHOD 03/12/2025 8:56 PM EDT [facility] MCV 88 79 - 98 fL LAB HEMATOLOGY METHOD 03/12/2025 8:56 PM EDT [facility] MCH 27.5 26.0 - 32.0 pg LAB HEMATOLOGY METHOD 03/12/2025 8:56 PM EDT [facility] MCHC 31.4 30.7 - 35.5 g/dL LAB HEMATOLOGY METHOD 03/12/2025 8:56 PM EDT [facility] RDW 16.8(H) 11.5 - 14.5 % LAB HEMATOLOGY METHOD 03/12/2025 8:56 PM EDT [facility] MPV 9.4 8.8 - 12.5 fL LAB HEMATOLOGY METHOD 03/12/2025 8:56 PM EDT [facility] nRBC 0.0 <=0.0 per 100 WBCs LAB HEMATOLOGY METHOD 03/12/2025 8:56 PM EDT [facility] Differential Type Automated LAB HEMATOLOGY METHOD 03/12/2025 8:56 PM EDT [facility] Neutrophils % 87 % LAB HEMATOLOGY METHOD 03/12/2025 8:56 PM EDT [facility] Lymphocytes % 11 % LAB HEMATOLOGY METHOD 03/12/2025 8:56 PM EDT [facility] Monocytes % 2 % LAB HEMATOLOGY METHOD 03/12/2025 8:56 PM EDT [facility] Eosinophils % 0 % LAB HEMATOLOGY METHOD 03/12/2025 8:56 PM EDT [facility] Basophils % 0 % LAB HEMATOLOGY METHOD 03/12/2025 8:56 PM EDT [facility] Immature Granulocytes % 0 % LAB HEMATOLOGY METHOD 03/12/2025 8:56 PM EDT [facility] Neutrophils Absolute 7.72(H) 1.60 - 6.10 10*3/uL LAB HEMATOLOGY METHOD 03/12/2025 8:56 PM EDT [facility] Lymphocytes Absolute 1.01(L) 1.20 - 3.90 10*3/uL LAB HEMATOLOGY METHOD 03/12/2025 8:56 PM EDT [facility] Monocytes Absolute 0.22(L) 0.30 - 0.90 10*3/uL LAB HEMATOLOGY METHOD 03/12/2025 8:56 PM EDT [facility] Eosinophils Absolute 0.03 0.00 - 0.50 10*3/uL LAB HEMATOLOGY METHOD 03/12/2025 8:56 PM EDT [facility] Basophils Absolute 0.02 0.00 - 0.10 10*3/uL LAB HEMATOLOGY METHOD 03/12/2025 8:56 PM EDT [facility] Immature Granulocytes Absolute 0.02 0.00 - 0.06 10*3/uL LAB HEMATOLOGY METHOD 03/12/2025 8:56 PM EDT [facility] Blood Venous blood specimen / Unknown Venipuncture / Unknown 03/12/2025 8:48 PM EDT 03/12/2025 8:53 PM EDT Narrative [facility] - 03/12/2025 8:56 PM EDT Therapeutic decision making should be based on absolute values, rather than percentages. us Staci Castro LAB BLOOD ORDERABLES Final Resul t Performing Organization Address City/[facility]/[place] [address] * (ABNORMAL) C-reactive protein (03/12/2025 8:48 PM EDT) CRP, Plasma 10.6(H) <=8.0 mg/L 03/12/2025 10:27 PM EDT [facility] Blood Venous blood specimen / Unknown Venipuncture / Unknown 03/12/2025 8:48 PM EDT 03/12/2025 8:59 PM EDT [facility] - 03/12/2025 10:27 PM EDT This CRP test is appropriate for assessment of infection, systemic inflammation and/or tissue injury. To assess cardiovascular disease risk order high sensitivity CRP (CRPH). us Delta Wilhelm MD LAB BLOOD ORDERABLES Final Result Performing Organization Address City/[facility]/[place] [address] * (ABNORMAL) POCT venous blood gas gem (03/12/2025 8:41 PM EDT) pH, Venous 7.34 7.32 - 7.43 03/12/2025 8:42 PM EDT [facility] pCO2, Venous 57(H) 40 - 55 mm Hg 03/12/2025 8:42 PM EDT [facility] pO2, Venous 46(H) 25 - 40 mm Hg 03/12/2025 8:42 PM EDT [facility] SO2, Venous 82(H) 65 - 80 % 03/12/2025 8:42 PM EDT [facility] Base Excess/Deficit, Venous 3.7(H) -2 - 3 mmol/L 03/12/2025 8:42 PM EDT [facility] HCO3, Venous 30.8(H) 22 - 26 mmol/L 03/12/2025 8:42 PM EDT [facility] Hemoglobin, Venous 12.3(L) 13.7 - 17.5 g/dL 03/12/2025 8:42 PM T [facility] Hematocrit, Venous 37.0(L) 40.0 - 51.0 % 03/12/2025 8:42 PM EDT [facility] Sodium, Venous 132(L) 136 - 145 mmol/L 03/12/2025 8:42 PM T [facility] Potassium, Venous 6.4(H) 3.6 - 4.9 mmol/L 03/12/2025 8:42 PM T [facility] Comment:Hemolyzed, result ma y be falsely increased. POCT Chloride, Venous 101 97 - 107 mmol/L 03/12/2025 8:42 PM T [facility] Glucose, Venous 113(H) 74 - 99 mg/dL 03/12/2025 8:42 PM EDT [facility] Ionized Calcium, Venous 4.6 4.6 - 5.1 mg/dL 03/12/2025 8:42 PM EDT [facility] Lactate, Venous 0.9 0.5 - 2.2 mmol/L 03/12/2025 8:42 PM EDT [facility] Body Temperature 37.0 Celsius 03/12/2025 8:42 PM EDT [facility] pH, Temp Corrected, Venous 7.34 7.32 - 7.43 03/12/2025 8:42 PM EDT [facility] pCO2, Temp Corrected, Venous 57(H) 40 - 55 mm Hg 03/12/2025 8:42 PM EDT [facility] pO2, Temp Corrected, Venous 46(H) 25 - 40 mm Hg 03/12/2025 8:42 PM EDT [facility] Er Tech ID Irene Ro 03/12/2025 8:42 PM EDT [facility] Blood, Venous Whole blood specimen / Unknown 03/12/2025 8:41 PM EDT 03/12/2025 8:42 PM EDT us Generic Provider Poct LAB POINT OF CARE TEST DOCKED DEVICE UNSOLICITED RESULTS Final Result [facility] [address] [place] [address] * CT CRITICAL CARE, ADDL 30 MIN (03/12/2025 8:41 [...] Result from Last 3 Months Insurance [facility]IC[facility] Advance Directives * Full Code (Latest Code Status on File) Date Activated Date Inactivated Comments 03/12/2025 9:57 PM 03/17/2025 2:00 PM Question Answer Comments I have reviewed the capacity from the link above and, if needed, have updated to appropriate status: Yes Care Teams Professor Of Music Relationship Specialty Start Date End Date Joycelyn Montes PA [address] [place] [address] PCP - General 04/01/23
--- OUTSIDE RECORDS SUMMARY | 2025-04-25 10:00 | XMS_ITS ---
Author Organization [facility] Address [address] [place] [address] Care Team Providers Care Setup Technician Name Role Phone Joycelyn Montes Primary Care Provider [phone] Transitional Care Management Status:Closed (Closed) Start date:03/18/2025 Enrollment date:03/18/2025 Enrollment reason:Identified using hospital discharge data End date:04/17/2025 Close reason:Patient graduated Overview This episode type is for outpatient care managers enrolling patients in the [facility] Transitional Care Management program. Continued Care and Services Coordination
--- OUTSIDE RECORDS SUMMARY | 2025-04-25 10:01 | XMS_ITS | Encounter Summary ---
Author Organization [facility] Address [address] [place] [address] Care Team Providers Care Splitter Machine Name Role Phone Joycelyn Montes Primary Care Provider [phone] Encounter Details Date Type Department Care Team [...] documented as of this encounter Care Teams Splitter Machine Relationship Specialty Start Date End Date Joycelyn Montes PA [address] [place] [address] PCP - General 04/01/23 documented as of this encounter
--- OUTSIDE RECORDS SUMMARY | 2025-04-25 10:01 | XMS_ITS | Encounter Summary ---
Author Organization Healthcare Address [address] [place] [address] Care Team Providers Care Education Managers Name Role Phone Denis Montesie Mario Alberto LIRA Primary Care Provider [phone] Encounter Details Date Type Department Care Team ([facility] st Contact Info) Description 03/12/2025 Orders Only External Location [address] [place] [address] Provider, External Social History Tobacco Use Types [...] and Family Not on file 03/15/2025 Attends Church Services Not on file 03/15 Active Member [...] any time in the past 12 m [facility], were you homeless or living in a group home (including now)? No 03/15/2025 Utilities Answer Date Recorded In the past 12 months has th e [employer], gas, oil, or water [employer] threatened to shut off services in your [...] with Lay Clark DO on 03/15/25 @ 2793, there is no concern for TB. - Grover Waite 03/13/2025 03/13/2025 03/13/2025 11:31 AM EDT Assessment Noted Time A fall risk assessment has been complete d for the patient 04/07/2024 2:13 PM EDT A Body Mass Index follow-up plan has been documented for the patient 03/17/2025 11:22 AM EDT documented as of this encounter Care Teams Education Managers Relationship Specialty Start Date End Date Joycelyn Montes PA [address] [place] [address] PCP - General 04/01/23 documented as of this encounter
--- OUTSIDE RECORDS SUMMARY | 2025-04-25 10:01 | XMS_ITS | Encounter Summary ---
Author Organization Healthcare Address [address] [place] [address] Care Team Providers Care Rn Flight Name Role Phone Denis Montesie Mario Alberto LIRA Primary Care Provider [phone] Encounter Details Date Type Department Care Team ([facility] st Contact Info) Description 03/12/2025 Orders Only External Location [address] [place] [address] Provider, External Social History Tobacco Use Types [...] time in the past 12 m [facility], were you homeless or living in a [place] [facility] [place] facility (including now)? No 03/15/2025 Utilities Answer Date Recorded In the past 12 months has th e [employer], gas, oil, or water [employer] threatened to shut off services in your [...] with Lay Clark DO on 03/15/25 @ 5453, there is no concern for TB. - Grover Waite 03/13/2025 03/13/2025 03/13/2025 11:31 AM EDT Assessment Noted Time A fall risk assessment has been complete d for the patient 04/07/2024 2:13 PM EDT A Body Mass Index follow-up plan has been documented for the patient 03/17/2025 11:22 AM EDT documented as of this encounter Care Teams Rn Flight Relationship Specialty Start Date End Date Joycelyn Montes PA [address] [place] [address] PCP - General 04/01/23 documented as of this encounter
--- OUTSIDE RECORDS SUMMARY | 2025-04-25 10:01 | XMS_ITS | Encounter Summary ---
Author Organization Healthcare Address [address] [place] [address] Care Team Providers Care Gambling Supervisor Name Role Phone Denis Montesie Mario Alberto LIRA Primary Care Provider [phone] Encounter Details Date Type Department Care Team ([facility] st Contact Info) Description 03/12/2025 Orders Only External Location [address] [place] [address] Provider, External Social History Tobacco Use Types [...] and Family Not on file 03/15/2025 Attends Temple Services Not on file 03/15 Active Member [...] time in the past 12 m [facility], were you homeless or living in a [facility] (including now)? No 03/15/2025 Utilities Answer Date Recorded In the past 12 months has th e [employer], gas, oil, or water [employer] threatened to shut off services in your [...] with Lay Clark DO on 03/15/25 @ 1680, there is no concern for TB. - Grover Waite 03/13/2025 03/13/2025 03/13/2025 11:31 AM EDT Assessment Noted Time A fall risk assessment has been complete d for the patient 04/07/2024 2:13 PM EDT A Body Mass Index follow-up plan has been documented for the patient 03/17/2025 11:22 AM EDT documented as of this encounter Care Teams Gambling Supervisor Relationship Specialty Start Date End Date Joycelyn Montes PA [address] [place] [address] PCP - General 04/01/23 documented as of this encounter
--- OUTSIDE RECORDS SUMMARY | 2025-04-25 10:01 | XMS_ITS | Encounter Summary ---
Author Organization [facility] Address [address] [place] [address] Care Team Providers Care Motocross Racer Name Role Phone SimonJoycelyn PANKAJ Primary Care Provider [phone] Encounter Details Date Type Department Care Team [...] and Family Not on file 03/15/2025 Attends Zoroastrianism Services Not on file 03/15 Active Member [...] in the past 12 m [facility], were you homeless or living in a detention (including now)? No 03/15/2025 Utilities Answer Date Recorded In the past 12 months has th e [employer], gas, oil, or water company threatened to [...] documented as of this encounter Care Teams Motocross Racer Relationship Specialty Start Date End Date Joycelyn Montes PA [address] [place] [address] PCP - General 04/01/23 documented as of this encounter
--- OUTSIDE RECORDS SUMMARY | 2025-04-25 10:01 | XMS_ITS | Encounter Summary ---
Author Organization Healthcare Address [address] [place] [address] Care Team Providers Care Frame Welder Cargo Utility Trailers Name Role Phone Denis Montesie Mario Alberto LIRA Primary Care Provider [phone] Encounter Details Date Type Department Care Team ([facility] st Contact Info) Description 03/12/2025 Orders Only External Location [address] [place] [address] Provider, External Social History Tobacco Use Types [...] and Family Not on file 03/15/2025 Attends Moravian Services Not on file 03/15 Active Member [...] any time in the past 12 m [facility], were you homeless or living in a alf (including now)? No 03/15/2025 Utilities Answer Date Recorded In the past 12 months has th e [employer], gas, oil, or water [employer] threatened to shut off services in your [...] with Lay Clark DO on 03/15/25 @ 7415, there is no concern for TB. - Grover Waite 03/13/2025 03/13/2025 03/13/2025 11:31 AM EDT Assessment Noted Time A fall risk assessment has been complete d for the patient 04/07/2024 2:13 PM EDT A Body Mass Index follow-up plan has been documented for the patient 03/17/2025 11:22 AM EDT documented as of this encounter Care Teams Frame Welder Cargo Utility Trailers Relationship Specialty Start Date End Date Joycelyn Montes PA [address] [place] [address] PCP - General 04/01/23 documented as of this encounter
--- OUTSIDE RECORDS SUMMARY | 2025-04-25 10:01 | XMS_ITS | Encounter Summary ---
Author Organization Healthcare Address [address] [place] [address] Care Team Providers Care Horologist Apprentice Name Role Phone Denis Montesie Mario Alberto LIRA Primary Care Provider [phone] Encounter Details Date Type Department Care Team ([facility] st Contact Info) Description 03/12/2025 Orders Only External Location [address] [place] [address] Provider, External Social History Tobacco Use Types [...] any time in the past 12 m [facility], were you homeless or living in a correction (including now)? No 03/15/2025 Utilities Answer Date Recorded In the past 12 months has th e [employer], gas, oil, or water [employer] threatened to shut off services in your [...] with Lay Clark DO on 03/15/25 @ 5899, there is no concern for TB. - Grover Waite 03/13/2025 03/13/2025 03/13/2025 11:31 AM EDT Assessment Noted Time A fall risk assessment has been complete d for the patient 04/07/2024 2:13 PM EDT A Body Mass Index follow-up plan has been documented for the patient 03/17/2025 11:22 AM EDT documented as of this encounter Care Teams Horologist Apprentice Relationship Specialty Start Date End Date Joycelyn Montes PA [address] [place] [address] PCP - General 04/01/23 documented as of this encounter
--- OUTSIDE RECORDS SUMMARY | 2025-04-25 10:01 | XMS_ITS | Encounter Summary ---
Author Organization [facility] Address [address] [place] [address] Care Team Providers Care English Faculty Member Name Role Phone Joycelyn Montes Primary Care Provider [phone] Encounter Details Date Type Department Care Team [...] documented as of this encounter Care Teams English Faculty Member Relationship Specialty Start Date End Date Joycelyn Montes PA [address] [place] [address] PCP - General 04/01/23 documented as of this encounter
--- OUTSIDE RECORDS SUMMARY | 2025-04-25 10:01 | XMS_ITS ---
Author Organization [facility] Address [address] [place] [address] Care Team Providers Care Tufting Creeler Name Role Phone SimonJoycelyn PANKAJ Primary Care Provider [phone] Active Problems Problem Noted Date Diagnosed Date [...]
[2025-04-25] MEDS: ISOTOPE MDP (BONE);1 DOSE VIAL IV (10:25)
[2025-04-25] MEDS: SODIUM CHLORIDE 0.9% 10ML SYR (RAD ONLY) 10 ML IV (10:25)
--- OUTSIDE RECORDS SUMMARY | 2025-04-25 10:59 | XMS_ITS | CCD ---
Author Organization Unknown Care Team Providers Care Brewery Cellar Worker Name Role Phone Unavailable Primary Care Provider Unavailabl e Unavailable Chronic Care Management Unavaila ble Summary Purpose DataExchange Insurance Providers Payer name Policy type / Coverage type Covered libertarian ID Effective Begin Date Effective End Date [facility] [id number] Unknown Unknown Family History Family History data not found Medication Administered No Medication Administered data Reason For Visit No Reason For Visit data Medical Equipment No Medical Equipment data Advance Directives No Advance Directive data
--- OUTSIDE RECORDS SUMMARY | 2025-04-25 11:00 | XMS_ITS | CCD ---
Author Organization Unknown Care Team Providers Care Overhead Garage Door Hanger Name Role Phone Unavailable Primary Care Provider Unavailabl e Unavailable Chronic Care Management Unavaila ble Summary Purpose DataExchange Insurance Providers Payer name Policy type / Coverage type Covered green party ID Effective Begin Date Effective End Date [facility] [id number] Unknown Unknown Family History Family History data not found Medication Administered No Medication Administered data Reason For Visit No Reason For Visit data Medical Equipment No Medical Equipment data Advance Directives No Advance Directive data
== END 2025-04-25 23:59 | disposition home or self-care (01) ==
LOC: RAD 09:57
PROVIDERS: PCP Family Medicine; Visit Provider Internal Medicine Medical Oncology
DX: C34.90 Malignant neoplasm of unspecified part of unspecified bronchus or lung (principal); C79.9 Secondary malignant neoplasm of unspecified site
CPT/HCPCS: 78306; A9503

== ENCOUNTER 2025-04-28 10:00 | Outpatient (CLI) | payer MEDICARE, SELFPAY ==
--- OUTSIDE RECORDS SUMMARY | 2025-03-12 20:41 | XMS_ITS | Encounter Summary ---
Author Organization [facility] Address [address] [place] [address] Care Team Providers Care Service Representative Name Role Phone Joycelyn Montes PANKAJ Primary Care Provider [phone] Reason for Referral * Consultation (Routine) - Authorized Specialty Diagnoses / Procedures Referred By Jarod rod Referred To Contact Family Medicine Diagnoses Acute hypoxic respiratory failure Pneumonia of right lung due to infectious organism, unspecified part of lung Lung mass Pulmonary emphysema, unspecified emphysema type (CMS/HCC) Small cell carcinoma of right lung, unspecified part of lung Bernardo Chavez MD [address] [place] [address] Phone: tel: fax: Referral ID Status Reason Start Date Expiration Date V isits Requested Visits Authorized [id number] Authorized 03/17/2025 09/16/2026 1 1 * Home Health (Routine) - Authorized Specialty Diagnoses / Procedures Referred By Jarod rod Referred To Contact Home Health Services Diagnoses Acute hypoxic on chronic hypercapnic respiratory failure Bernardo Chavez MD [address] [place] [address] Phone: tel: fax: Referral ID Status Reason Start Date Expiration Date Visits Requested Visits Authorized [id number] Authorized Specialty Services Required 03/16/2025 09/15/2026 999 999 Reason for Visit * Reason Comments Shortness of Breath * Auth/Cert (Routine) Specialty Diagnoses / Procedures Referred By Contac t Referred To Contact Diagnoses Pneumonia of right lung due to infectious organism, unspecified part of lung Acute hypoxic respiratory failure Acute hypoxic on chronic hypercapnic respiratory failure Pneumonia Mariah Mcgowan MD [address] [place] [address] Phone: tel: fax: PAV A Inpatient [address] [place] [address] Referral ID Status Reason Start Date Expiration Date Visits Re quested Visits Authorized [id number] 1 1 Encounter Details Date Type Department Care Team (Latest Contact Info) Description 03/12/2025 8:41 PM EDT - 03/17/2025 11:49 AM EDT Hospital Encounter PAV A Inpatient [address] [place] [id number] Staci Jones MD [address] [place] [address] Mariah Mcgowan MD [address] [place] [address] Gt De La Paz MD [facility] [address] [address] Delfino Aceves MD [address] [place] [address] Enrrique Duque MD [address] [place] [phone] Bernardo Chavez MD [address] [place] [address] Pneumonia of right lung due to infectious organism, unspecified part of lung (Primary Dx); Acute hypoxic respiratory failure; Acute hypoxic on chronic hypercapnic respiratory failure; Lung mass; Pulmonary emphysema, unspecified emphysema type (CMS/HCC); Small cell carcinoma of right lung, unspecified part of lung Discharge Disposition: Home-Health Care [facility] Social History Tobacco Use Types Packs/Day Years [...] and Family Not on file 03/15/2025 Attends Congregational Services Not on file 03/15 Active Member [...] any time in the past 12 m [facility], were you homeless or living in a custodial (including now)? No 03/15/2025 Utilities Answer Date [...] 4 times a day. 03/16/2024 HYDROcodone-acet aminophen (Manasquan) 10-325 MG tablet Take 1 tablet by [...] from the original note were not included. [id number] Learning About Respiratory Failure What is respiratory [...] this instruction, always ask your healthcare professional. [email or web address] disclaims any warranty or liability for your use of this information. ?? [id number] [email or web address]. * Progress Notes - Laurie Laguna - 03/17/2025 10:51 AM EDT Case Management Discharge Note Last Santos 74 y.o. male CSN: [id number] Admission: 03/12/2025 8:41 PM Primary Problem: Acute hypoxic on chronic hypercapnic respiratory failure Primary Supervisor Plastics: Primary Caregiver: Self Assistance Available at Discharge: Availability of Care Givers (#Hours): 24 hours (Spouse available as needed.) Family/Supervisor Plastics(s) Willingness Assessed to care for patient at [...] placed copy in patients chart [facility] [address] [facility] [address], [place] [address] Follow up Provider for DME- Home Oxygen and Rolling Walker, Portable tank to be delivered to bedside prior todischarge. Syeda from [facility] will call Spouse to see if they want RW delivered to bedside or home. [employer] [facility], [employer]. [address] [place] [address], [facility] [address] [place] [address] Follow up Provider for Home Health SN for post hospital assessment and medication review, PT/OT to evaluate and treat. They will call you to schedule initial visit. Please call them with any questions- [phone] Francisco Lynn MD [address] [place] [address] [place] [address] Discharge Transportation: Transportation Anticipated: family or friend [...] PCP name and Address: Joycelyn Montes [place] [address] [facility] [address] Referring provider name and address: Francisco Lynn MD [address] [place] [address] [place] [address] Chief Concern, Brief History of Present Illness, and Hospital Course Last Santos is a 74 y.o. male w/ relevant hx of CAD (s/p inferior CO), COPD(no home O2), BPH,HTN, HLD, DM2, recent diagnosis of small cell lung cancer (diagnosed Feburary, RUL hypermetabolic nodule, R peritracheal and hilar adenopathy) who presented to OSH for acute hypoxic respiratory failure requiring intubation. He was treated for PNA, extubated 03/15, and weaned to 3-4L NC on day of discharge. HH PT/OT set up with home oxygen. [facility] consulted to discuss treatment options and patient continued to decline them. #AHRF req MV (s/p extubation) 2/ PNA, resolving #Stage III Small Cell Lung Cancer - Biopsy results are in media tab--small cell lung cancer - Was reportedly supposed to undergo chemotherapy and radiation treatment with local oncologist in [place] (Liz Bryan) but declined treatment- takes Ivermectin [...] HYDROcodone-acetaminophen 10-325 MG tablet Commonly known as: Man[place]an Take 1 tablet by mouth every 6 [...] Your Medications These medications were sent to [facility] [employer] [place], [place] - [address] [facility] [address] tiotropium 18 MCG inhalation capsule Information about [...] Note Last Santos 74 y.o. male CSN: [id number] Admission: 03/12/2025 8:41 PM Primary Problem: Acute hypoxic on chronic hypercapnic respiratory failure Anticipated Discharge Date: Potentially tomorrow, pending progress. Has Discharge Plans Changed? No Additional Comments: Per MD during morning Team meeting, patient could potentially be ready for discharge tomorrow, pending progress. PT/OT recommendations are HH PT/PT, DME- Rolling Walker. Patient choice for DME provider is [facility]. CM sent order and referral for RW via fax: [phone],Attn- Syeda. CM also sent referral for HH: [...] w/ relevant hx of CAD (s/p inferior CO), COPD(no home O2), BPH,HTN, HLD, DM2, recent [...] and radiation treatment with local oncologist in [place] (Liz Bryan) but declined treatment- takes Ivermectin [...] not currently on treatment, CAD s/p inferior CO in 2007, COPD not on home oxygen, [...] Emergency Contact: CRYSTAL SANTOS Mobile Relation: Spouse Card Grinder Helper needed? No Patient's HCPOA: is same as above I have spoken with and given verbal consent checkout to the primary receiving provider: Dr. Duque * Consults - Fabi oCrona MBBS - 03/15/2025 6:20 PM EDTAssociated Order(s): [...] hyperlipidemia, type 2 diabetes who presented from [facility] for acute hypoxic respiratory failure requiring intubation [...] pulmonary disease) with emphysema (CMS/HCC) (03/15/2025), Diabetes ([facility]), Diastolic dysfunction (03/15/2025), Essential hypertension (01/03/2016), High blood pressure, History of heart artery stent (03/15/2025), History of myocardial infarction (01/03/2016), Hyperlipidemia (01/03/2016), Impingement syndrome, shoulder, left (03/15/2025), Knee pain (01/03/2016), and Myocardial infarction ([facility]). Surgical History He has a past surgical [...] 2:34 AM Relevant Results Non-Gynecologic Cytology, Fluid: [id number] Order: [id number] Collected 03/13/2025 11:34 Status: Final result Test [...] or concerns. Fabi Richter MD Fellow, PGY4 [facility] [phone] [1] Current Facility-Administered Medications Medication Dose Route [...] MD 5,000 Units at 03/15/25 1334 HYDROcodone-acetaminophen (Manasquan) 5-325 MG per tablet 10 mg of [...] has a past medical history of Diabetes ([facility]), High blood pressure, and Myocardial infarction ([facility]). Past Surgical History Patient has a past surgical history that includes Skin cancer excision (2020); Cardiac catheterization; and Coronary stent placement (2009). Precautions Medical Precautions: Fall precautions Subjective Pt agreeable to PT initial evaluation. Participants in Care Family/Caregiver Present: No Presentation Oxygen Therapy: Supplemental oxygen O2 Delivery Method: High flow nasal cannula (switched to NRB for mobility in [facility], per RN; pt returned to [facility] at end of session) FiO2 (%): [...] admission Level of Mobility: Ambulatory- community Mobility [place]: Independent gait without device History of Falls: [...] postioning. Bed Mobility Exam: Rolling/Turning Level of [place]: Stand-by assist Physical/Nonphysical Assist: Supervision, Verbal Cues Assistive Device: Bed rails Bed Mobility Exam: Scooting/Bridging Level of [place]: Contact guard (to scoot forward while seated at EOB) Physical/Nonphysical Assist: Verbal Cues, Minimal cues Bed Mobility Exam: Supine to Sit Level of [place]: Contact guard Physical/Nonphysical Assist: Verbal Cues, Minimal cues Assistive Device: Bed rails Transfers Transfer Interventions: Pt required cues for hand placement to push up to stand, midline awareness upon initial stand, body positioning prior to sitting, and reaching back prior to sitting. Transfer Exam: Sit to stand Level of [place]: Minimum assist (75% patient's effort) (min assist x1 rep from bed, CGA x1 rep from chair and x1 rep from BSC) Physical/Nonphysical Assist: Verbal Cues, Minimal cues, 1 person + 1 person to manage equipment Assistive Device: Walker, rolling Transfer Exam: Stand to Sit Level of [place]: Contact guard (x3 reps) Physical/Nonphysical Assist: Verbal [...] independence. Standardized Assessments Standardized Assessments Standardized Assessments: [facility] 6-Clicks Mobility Assessment [facility] 6-Clicks Mobility Assessment Difficulty patient has turning [...] 3-5 steps with a railing?: A lot [facility] 6-Clicks Mobility Assessment Total : 18 Assessment [...] has a past medical history of Diabetes ([facility]), High blood pressure,and Myocardial infarction ([facility]). Past Surgical History Patient has a past surgical history that includes Skin cancer excision (2020); Cardiac catheterization; and Coronary stent placement (2009). 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 Level of [place] Adaptive Equipment Utilized Interventions Feeding Grooming Setup [...] encouraged to mobilize in hallway with staff combat information center officer to promote tolerance to return to prior level of functioning. BED MOBILITY Level of [place] Physical/Non- physical Assist Adaptive Equipment Utilized Rolling/ Turning Stand-by assist Supervision, Verbal Cues Bed rails Scooting/ Bridging Contact guard (to scoot forward while seated at EOB) Verbal Cues, Minimal cues Supine to Sit Contact guard Verbal Cues, Minimal cues Bed rails Sit to Supine TRANSFERS Level of [place] Physical/Non- physical Assist Adaptive Equipment Utilized Sit [...] Bed to Chair Shower Transfer STANDARDIZED ASSESSMENTS [facility] 6-Click Daily Activities Help from Other: Don/Doff Regular Lower Body Clothings: A lot Help From Other: Bathing: A lot Help From Other: Toileting: Little Help From Other: Don/Doff Upper Body Clothings: None Help From Other: Grooming: None Help From Other: Eating Meals: None [facility] 6 Click - Daily Activities Score: 19 [...] Note Last Santos 74 y.o. male CSN: [id number] Admission: 03/12/2025 8:41 PM Primary Problem: Acute hypoxic on chronic hypercapnic respiratory failure Corporate Coordinator reviewed chart and spoke with patient's spouse at bedside to complete this Initial Case Management Assessment. PCP: Levar Davison MD ([phone]) [facility]acy- [facility] Emergency Contact: Extended Emergency Contact Information Primary Emergency Contact: CRYSTAL SANTOS Mobile Relation: Spouse Card Grinder Helper needed? No Insurance: Primary Visit Coverage Payer Plan Sponsor Code Group Number Group Name ANTHEM MEDICARE ANTHEM SENIOR ADVANTAGE [id number] Primary Visit Coverage Subscriber Subscriber ID Subscriber Name Subscriber SSN Subscriber Address [id number] [place] [id number] [address] [place] [id number] Patient information: Primary Caregiver: Self Accompanied by/Relationship: spouse - Crystal Support System: Immediate family Daily Living Activities: Functional Status: Independent Living Arrangements: Spouse/Significant other Type of Residence: Private residence, Single Level [address] [facility], [facility] [place] [address] Current DME: Equipment Currently Used at Home: [...] Dialysis Services: NA Living Will/Advance Directive/Power of Thumb Sewer /Guardian: NA - MARYCRUZ-Crystal Santos Additional Comments: Patient admitted from [facility] with acute hypoxic respiratory failure, pulmonary [...] CM will continue to follow. Nasra Adkins, [facility]PUBLIC SPACE ATTENDANT * Progress Notes - Nasra Adkins - 03/15/2025 9:31 AM EDT Case Management Adult Progress Note Last Santos 74 y.o. male CSN: [id number] Admission: 03/12/2025 8:41 PM Primary Problem: Acute [...] Friends and Family: Not on file Attends Congregational Services: Not on file Active Member of Clubs or Organizations: Not on file Attends Club or Organization Meetings: Not on file Marital Status: Financial Resource Strain: Medium Risk (03/15/2025) Overall Financial Resource Strain (CARDIA) Difficulty of Paying Living Expenses: Somewhat hard Nasra Adkins [facility]PUBLIC SPACE ATTENDANT * Care Plan - Shellie Casarez RN [...] Note Last Santos 74 y.o. male CSN: [id number] Room/Bed 211/211A Nutrition evaluation type: follow-up Reason [...] O2 Delivery Method: High flow nasal cannula [place] Coma Scale Score: 15 Rod Scale Score: [...] 35.18 Weight Evaluation: Obese-Class 2 (BMI 35-39.9) [place] Body Weight (kg): 72.7 Percent [place] Body Weight: 150 Adjusted Body Weight (kg): 81.5 Estimated Needs: Kcal/ K-25 Kcal Provided: 1925-6635 Kcal Needs Based On: Adjusted weight Gm Protein/ Kg : 1.2-1.5 Protein Provided: 98-123 Protein Needs Based On: Adjusted weight ML/ Kg: - Metabolic Cart Study Results: Current Nutrition Intake: Diet Supplements: None Diet Order: NPO Diet Experience and Nutrition History: Diet Education Provided: Will monitor Pertinent home medications: Congregational needs: Nutrition Focused Physical Exam: Physical exam [...] yo M with PMH CAD (s/p inferior CO), COPD(no home O2), BPH, HTN, HLD, DM2, [...] and radiation treatment with local oncologist in [place] (Liz Bryan) but declined treatment- takes Ivermectin [...] yo M with PMH CAD (s/p inferior CO), COPD(no home O2), BPH, HTN, HLD, DM2, [...] and radiation treatment with local oncologist in [place] (Liz Bryan), however patient wished to wait [...] to get records from primary oncologist in [place] Friday - MRI brain w/ and w/o [...] Note Last Santos 74 y.o. male CSN: [id number] Room/Bed 211/211A Nutrition evaluation type: assessment Reason [...] Supplemental oxygen O2 Delivery Method: Mechanical ventilator Jean[place] Coma Scale Score: 6 Chandan/Cubbin Pressure Risk [...] 35.6 Weight Evaluation: Obese-Class 2 (BMI 35-39.9) [place] Body Weight (kg): 72.7 Percent [place] Body Weight: 150 Estimated Needs: Kcal/ K-14 Kcal Provided: 1160-5773 Kcal Needs Based On: Current weight Gm Protein/ Kg : 2+ Protein Provided: 145+ Protein Needs Based On: [place] weight ML/ Kg: Per team or 1 mL/kcal Metabolic Cart Study Results: Current Nutrition Intake: Diet Supplements: None Diet Order: NPO Diet Experience and Nutrition History: Diet Education Provided: Will monitor Pertinent home medications: Congregational needs: Nutrition Focused Physical Exam: Unable to Complete Exam: Weekend coverage Physical exam performed on (date): Assessment of Malnutrition: Malnutrition Identified: Additional Information Needed Nutrition Problem: Inadequate oral intake related to MV as evidenced by NPO. Status of Nutrition Diagnosis: New Nutrition Interventions and Recommendations: PO per SUBSURFACE AUGMENTEE OPERATOR/primary TF recs if warranted: Peptamen Intense VHP [...] [1] Past Medical History: Diagnosis Date Diabetes ([facility]/HCC) High blood pressure Myocardial infarction (CMS/HCC) [2] [...] yo M with PMH CAD (s/p inferior CO), COPD(no home O2), BPH, HTN, HLD, DM2, recent diagnosis of lung cancer (diagnosed Feburary, RUL hypermetabolic nodule, R peritracheal and hilar adenopathy) who presented to OSH for acute hypoxic respiratory failure requiring intubation for post ob structive pna. #Acute hypoxic respiratory failure requiring intubation [...] and radiation treatment with local oncologist in [place] (Liz Bryan), however patient wished to wait [...] to get records from primary oncologist in [place] Friday - MRI brain w/ and w/o [...] Miralax I: PIV, Grant, ETT, OG D: Julito Hopkins Code Status: Full Anticipated in 2-4 Days [...] w/ relevant hx of CAD (s/p inferior CO), COPD(no home O2), BPH,HTN, HLD, DM2, recent diagnosis of small cell lung cancer (diagnosed Feburary, RUL hypermetabolic nodule, R peritracheal and hilar adenopathy) who presented to OSH for acute hypoxic respiratory failure requiring intubation. He was treated for PNA, extubated 03/15, and weaned to 3-4L NC on day of discharge. HH PT/OT set up with home oxygen. [facility] consulted to discuss treatment options and patient continued to decline them. #AHRF req MV (s/p extubation) 2/2 PNA, resolving #Stage III Small Cell Lung Cancer - Biopsy results are in media tab--small cell lung cancer - Was reportedly supposed to undergo chemotherapy and radiation treatment with local oncologist in [place] (Liz Bryan) but declined treatment- takes Ivermectin [...] w/ significant PMHx of CAD s/p inferior CO in 2007, COPD not onhome oxygen, BPH, HTN, HLD, T2DM complicated by peripheral neuropathy who presents from [facility] for acute hypoxic respiratory failure requiring intubation [...] each morning. 03/16/24 Rosie Elizondo MD HYDROcodone-acetaminophen (Man[place]quan) 10-325 MG tablet Take 1 tablet (10 [...] and radiation treatment with local oncologist in [place] (Liz Bryan), however patient wished to wait [...] to get records from primary oncologist in [place] - MRI brain w/ and w/o ordered [...] mouth 1 (one) time each morning. HYDROcodone-acetaminophen (Man[place]quan) 10-325 MG tablet Take 1 tablet (10 [...] evaluated the patient with the resident/fellow via [facility] ICU audio- visual support as available. I [...] 1-5-1T Psychiatric: Mood and Affect: Mood normal. [place] Coma Scale Score: 7 ED Course & [...] Daily Order ID Start Status Ordering Provider [id number] 03/13/25 0800 Acknowledged THE, STACI S 03/14/25 06 Scheduled THE, STACI S 03/15/25 0600 Scheduled THE, STACI S 03/16/25599 Scheduled THE, [...] Continuous Order ID Start Status Ordering Provider [id number] 03/12/252102 Completed THE, STACI S [id number] 03/13/25799 Acknowledged THE, STACI S [id number] 03/13/251999 Acknowledged THE, STACI S 03/14/25799 Scheduled THE, STACI S 03/14/251999 Scheduled THE, STACI S 03/15/25799 Scheduled THE, STACI S 03/15/251999 Scheduled THE, STACI S 03/16/25799 Scheduled THE, STACI S 03/16/251999 Scheduled THE, STACI S Acknowledged THE, STACI S 03/12/252101 End Tidal co2 Monitoring Continuous Order ID Start Status Ordering Provider [id number] 03/12/252102 Acknowledged THE, STACI S [id number] 03/13/25799 Acknowledged THE, STACI S [id number] 03/13/251999 Acknowledged THE, STACI S 03/14/25799 Scheduled [...] integrityUntil discontinued Acknowledged THE, STACI S 03/12/252101 [place] teeth every 12 hours Until discontinued Acknowledged [...] TATE DAI 03/12/252047 Methemoglobin Once Final result [facility] 03/12/252047 Initiate contact isolation Continuous Comments: [...] and Legionella Urinary Antigen Once In process [facility] 03/12/252045 Methicillin Resistant Staphylococcus aureus (MRSA) by PCR Once In process [facility] 03/12/252045 STAT Canceled [facility] 03/12/252045 Nasopharyngeal Respiratory Panel Once In process [facility] 03/12/252045 SARS CoV-2/COVID-19 by PCR - Rapid PROCEDURE ONCE In process [facility] 03/12/252045 Procalcitonin STAT In [facility] 03/12/252045 Hepatitis C Antibody - ED Once In [facility] 03/12/252045 ED Protocol - HIV 1/2 Antibody/Antigen Screen Once In [facility] 03/12/252045 ED HIV 1/2 Antibody/Antigen Screen w/Reflex to HIV 1/2 Differentiation PROCEDURE ONCE In process [facility] 03/12/252045 CMP STAT In [facility] 03/12/252045 Magnesium STAT In [facility] 03/12/252045 Troponin now and 120 min STAT In [facility] 03/12/252045 STAT Canceled [facility] 03/12/252042 ICU Target Pain Score Until discontinued Comments: Initiate and titrate analgesia to attain goal CPOT first prior to initiating sedation unless otherwise ordered. Goal is to provide adequate pain management prior to initiating sedative agents. Target consistent patient goal CPOT as ordered. Document CPOT per nursing policy prior to and following PRN dosing and with any changes in infusionrate. Acknowledged [facility] 03/12/252042 Target arousal level: Until discontinued [...] None Disposition Admit Admitting/Attending Physician: MARIAH MCGOWAN [8] Provider Care Team: [facility] MICU 2 [88] Are they [...] so intubated prior to transfer. 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 VS stable en route per EMS report documented in this encounter Plan of Treatment Scheduled Orders Name Type Priority Associated Diagnoses Orde r Schedule Respiratory Culture and Gram Stain Microbiology Routine Once (Lab) for 1 Occurrences starting 03/12/2025 until 03/12/2025 Scheduled Referrals Name Type Priority Associated Diagnoses Order Schedule Discharge Ambulatory referral to [facility] Referral Routine Acute hypoxic on [...] UNSOLICITED RESULTS Routine 03/14/2025 12:03 PM EDT [facility], E/M 30-74 MINUTES Routine 03/14/2025 [...] CO2 MONITORING Routine 03/13/2025 8:00 AM EDT [facility] CRITICAL [facility]ARE, E/M 30-74 MINUTES Routine 03/13/2025 [...] UNSOLICITED RESULTS Routine 03/12/2025 8:41 PM EDT [facility], ADDL 30 MIN Routine 03/12/2025 8:41 PM EDT documented in this encounter Results * POCT glucose meter (03/17/2025 8:31 AM EDT) [facility] POCT Glucose 99 74 - 99 mg/dL [...] Comment 03/17/2025 8:33 AM EDT HEALTHCARE LAB Stamp Pad Maker ID Lindsey Zamora 03/17/2025 8:33 AM EDT HEALTHCARE LAB Device ID [id number] 03/17/2025 8:33 AM EDT HEALTHCARE LAB Specimen Type POC Capillary 03/17/2025 8:33 AM EDT HEALTHCARE LAB Blood Capillary blood specimen / Unknown 03/17/2025 8:31 AM EDT 03/17/2025 8:33 AM EDT us Bernardo Chavez MD LAB POINT OF CARE TE ST DOCKED DEVICE UNSOLICITED RESULTS Final Result [facility] [address] [place] [address] * (ABNORMAL) Basic metabolic panel (03/17/2025 5:29 AM EDT) Pathologist [facility] Glucose, Plasma 90 74 - 99 mg/dL 03/17/2025 6:12 AM EDT [facility] BUN, Plasma 17 8 - 23 mg/dL 03/17/2025 6:12 AM EDT [facility] Creatinine, Plasma 1.31(H) 0.70 - 1.20 mg/dL 03/17/2025 6:12 AM EDT [facility] BUN/Creatinine Ratio 13 03/17/2025 6:12 AM EDT [facility] Sodium, Plasma 139 136 - 145 mmol/L 03/17/2025 6:12 AM EDT [facility] Potassium, Plasma 4.8 3.6 - 4.9 mmol/L 03/17/2025 6:12 AM EDT [facility] Comment:Hemolyzed, result ma y be falsely increased. Chloride, Plasma 102 97 - 107 mmol/L 03/17/2025 6:12 AM EDT [facility] CO2, Plasma 28 22 - 29 mmol/L 03/17/2025 6:12 AM EDT [facility] Anion Gap 9 6 - 16 mmol/L 03/17/2025 6:12 AM EDT [facility] Total Calcium, Plasma 8.7(L) 8.9 - 10.2 mg/dL 03/17/2025 6:12 AM EDT [facility] eGFRcr 57.8 mL/min/1.7 3m*2 03/17/2025 6:12 AM EDT [facility] Comment:Reported eGFRcr in m L/min/1.73m2 is based the CKD-EPI 2020 equation that does not use a race coefficient. Blood Venous blood specimen / Unknown Venipuncture / Unknown 03/17/2025 5:29 AM EDT 03/17/2025 5:40 AM EDT us Gt De La Paz MD LAB BLOOD ORDERABLES Final Res ult [facility] [address] [place] [address] * (ABNORMAL) CBC W/O Differential (03/17/2025 5:29 AM EDT) WBC Count 7.19 3.70 - 10.30 10*3/uL LAB HEMATOLOGY METHOD 03/17/2025 5:52 AM EDT [facility] RBC Count 4.43(L) 4.60 - 6.10 10*6/uL LAB HEMATOLOGY METHOD 03/17/2025 5:52 AM EDT [facility] HGB 11.9(L) 13.7 - 17.5 g/dL LAB HEMATOLOGY METHOD 03/17/2025 5:52 AM EDT [facility] HCT 39.1(L) 40.0 - 51.0 % LAB HEMATOLOGY METHOD 03/17/2025 5:52 AM EDT [facility] Platelet Count 188 155 - 369 10*3/uL LAB HEMATOLOGY METHOD 03/17/2025 5:52 AM EDT [facility] MCV 88 79 - 98 fL LAB HEMATOLOGY METHOD 03/17/2025 5:52 AM EDT [facility] MCH 26.9 26.0 - 32.0 pg LAB HEMATOLOGY METHOD 03/17/2025 5:52 AM EDT [facility] MCHC 30.4(L) 30.7 - 35.5 g/dL LAB HEMATOLOGY METHOD 03/17/2025 5:52 AM EDT [facility] RDW 16.7(H) 11.5 - 14.5 % LAB HEMATOLOGY METHOD 03/17/2025 5:52 AM EDT [facility] MPV 10.1 8.8 - 12.5 fL LAB HEMATOLOGY METHOD 03/17/2025 5:52 AM EDT [facility] nRBC 0.0 <=0.0 per 100 WBCs LAB HEMATOLOGY METHOD 03/17/2025 5:52 AM EDT [facility] Blood Venous blood specimen / Unknown Venipuncture / Unknown 03/17/2025 5:29 AM EDT 03/17/2025 5:44 AM EDT us Gt De La Paz MD LAB BLOOD ORDERABLES Final Res ult [facility] [address] [place] [address] * (ABNORMAL) Blood gas panel, venous (03/17/2025 5:29 AM EDT) pH, Venous 7.35 7.32 - 7.43 LAB HEMATOLOGY METHOD 03/17/2025 5:39 AM EDT [facility] pCO2, Venous 59(H) 40 - 55 mmHg LAB HEMATOLOGY METHOD 03/17/2025 5:39 AM EDT [facility] pO2, Venous 71(H) 25 - 40 mmHg LAB HEMATOLOGY METHOD 03/17/2025 5:39 AM EDT [facility] SO2, Measured, Venous 95(H) 65 - 80 % LAB HEMATOLOGY METHOD 03/17/2025 5:39 AM EDT [facility] Base Excess, Venous 5.5(H) -2.0 - 3.0 mmol/L LAB HEMATOLOGY METHOD 03/17/2025 5:39 AM EDT [facility] Bicarbonate, Calculated, Venous 33(H) 22 - 26 mmol/L LAB HEMATOLOGY METHOD 03/17/2025 5:39 AM EDT [facility] Hematocrit, Whole Blood 37.2(L) 40.0 - 51.0 % LAB HEMATOLOGY METHOD 03/17/2025 5:39 AM EDT [facility] Sodium, Whole Blood 139 136 - 145 mmol/L LAB HEMATOLOGY METHOD 03/17/2025 5:39 AM EDT [facility] Potassium, Whole Blood 4.6 3.6 - 4.9 mmol/L LAB HEMATOLOGY METHOD 03/17/2025 5:39 AM EDT [facility] Chloride, Whole Blood 103 97 - 107 mmol/L LAB HEMATOLOGY METHOD 03/17/2025 5:39 AM EDT [facility] Glucose, Whole Blood 88 74 - 99 mg/dL LAB HEMATOLOGY METHOD 03/17/2025 5:39 AM EDT [facility] Lactate, Venous, Whole Blood 0.8 0.5 - 2.2 mmol/L LAB HEMATOLOGY METHOD 03/17/2025 5:39 AM EDT [facility] Ionized Calcium, Whole Blood 4.6 4.6 - 5.1 mg/dL LAB HEMATOLOGY METHOD 03/17/2025 5:39 AM EDT [facility] Blood Venous blood specimen / Unknown Venipuncture / Unknown 03/17/2025 5:29 AM EDT 03/17/2025 5:37 AM EDT Mariah Mcgowan MD LAB BLOOD ORDERABLES Final Result [facility] [address] [place] [address] * POCT glucose meter (03/16/2025 7:58 PM EDT) Pathologist [facility] POCT Glucose 97 74 - 99 mg/dL [...] for testing. Comment 03/16/2025 8:00 PM EDT [facility] Stamp Pad Maker ID [email or web address] 03/16/2025 8:00 PM EDT [facility] LAB Device ID [id number] 03/16/2025 8:00 PM EDT [facility] Specimen Type POC Capillary 03/16/2025 8:00 PM EDT [facility] Blood Capillary blood specimen / Unknown 03/16/2025 7:58 PM EDT 03/16/2025 8:00 PM EDT Bernardo Chavez MD LAB POINT OF CARE TE ST DOCKED DEVICE UNSOLICITED RESULTS Final Result Performing Organization Address City/[facility] Co de Phone Number HEALTHCARE LAB [address] [place] [address] * (ABNORMAL) POCT glucose meter (03/16/2025 5:50 PM EDT) Pathologist [facility] POCT Glucose 107(H) 74 - 99 mg/dL [...] Comment 03/16/2025 5:51 PM EDT HEALTHCARE LAB Stamp Pad Maker ID Constance Schrader 025 5:51 PM EDT [facility] Device ID [id number] 03/16/2025 5:51 PM EDT [facility] Specimen Type POC Capillary 03/16/2025 5:51 PM EDT [facility]ALTH[facility]ARE LAB Blood Capillary blood specimen / Unknown 03/16/2025 5:50 PM EDT 03/16/2025 5:51 PM EDT Bernardo Chavez MD LAB POINT OF CARE TE ST DOCKED DEVICE UNSOLICITED RESULTS Final Result Performing Organization Address City/[facility] Co de Phone Number [facility] [address] [place] [address] * (ABNORMAL) POCT glucose meter (03/16/2025 11:42 AM EDT) POCT Glucose 128(H) 74 - 99 mg/dL 03/16/2025 11:44 AM EDT [facility]ALTHCARE LAB Comment:Accuracy of a [...] Comment 03/16/2025 11:44 AM EDT [facility]ALTHCARE LAB Stamp Pad Maker ID Constance Schrader 025 11:44 AM EDT HEALTHCARE LAB Device ID [id number] 03/16/2025 11:44 AM EDT [facility] Specimen Type POC Capillary 03/16/2025 11:44 AM EDT [facility] Blood Capillary blood specimen / Unknown 03/16/2025 11:42 AM EDT 03/16/2025 11:44 AM EDT us Bernardo Chavez MD LAB POINT OF CARE TE ST DOCKED DEVICE UNSOLICITED RESULTS Final Result [facility] [address] [place] [address] * (ABNORMAL) POCT glucose meter (03/16/2025 8:01 [...] Comment 03/16/2025 8:02 AM EDT HEALTHCARE LAB Stamp Pad Maker ID Constance Schrader 025 8:02 AM EDT HEALTHCARE LAB Device ID [id number] 03/16/2025 8:02 AM EDT HEALTHCARE LAB Specimen Type POC Capillary 03/16/2025 8:02 AM EDT [facility]ALTHCARE LAB Blood Capillary blood specimen / Unknown 03/16/2025 8:01 AM EDT 03/16/2025 8:02 AM EDT us Bernardo Chavez MD LAB POINT OF CARE TE ST DOCKED DEVICE UNSOLICITED RESULTS Final Result Performing Organization Address City/State/[facility] Co de Phone Number HEALTHCARE LAB [address] [place] [address] * (ABNORMAL) Basic metabolic panel (03/16/2025 6:07 AM EDT) Pathologist [facility] Glucose, Plasma 92 74 - 99 mg/dL 03/16/2025 6:51 AM EDT [facility] BUN, Plasma 25(H) 8 - 23 mg/dL 03/16/2025 6:51 AM EDT [facility] Creatinine, Plasma 1.49(H) 0.70 - 1.20 mg/dL 03/16/2025 6:51 AM EDT [facility] BUN/Creatinine Ratio 17 03/16/2025 6:51 AM EDT [facility] Sodium, Plasma 141 136 - 145 mmol/L 03/16/2025 6:51 AM EDT [facility] Potassium, Plasma 4.6 3.6 - 4.9 mmol/L 03/16/2025 6:51 AM EDT [facility] Chloride, Plasma 103 97 - 107 mmol/L 03/16/2025 6:51 AM EDT [facility] CO2, Plasma 29 22 - 29 mmol/L 03/16/2025 6:51 AM EDT [facility] Anion Gap 9 6 - 16 mmol/L 03/16/2025 6:51 AM EDT [facility] Total Calcium, Plasma 8.9 8.9 - 10.2 mg/dL 03/16/2025 6:51 AM EDT [facility] eGFRcr 49.6 mL/min/1.7 3m*2 03/16/2025 6:51 AM EDT [facility] Comment:Reported eGFRcr in m L/min/1.73m2 is based the CKD-EPI 2020 equation that does not use a race coefficient. Blood Venous blood specimen / Unknown Venipuncture / Unknown 03/16/2025 6:07 AM EDT 03/16/2025 6:22 AM EDT us Gt De La Paz MD LAB BLOOD ORDERABLES Final Res ult [facility] [address] [place] [address] * (ABNORMAL) CBC W/O Differential (03/16/2025 6:07 AM EDT) WBC Count 8.70 3.70 - 10.30 10*3/uL LAB HEMATOLOGY METHOD 03/16/2025 6:36 AM EDT [facility] RBC Count 4.52(L) 4.60 - 6.10 10*6/uL LAB HEMATOLOGY METHOD 03/16/2025 6:36 AM EDT [facility] HGB 12.5(L) 13.7 - 17.5 g/dL LAB HEMATOLOGY METHOD 03/16/2025 6:36 AM EDT [facility] HCT 39.6(L) 40.0 - 51.0 % LAB HEMATOLOGY METHOD 03/16/2025 6:36 AM EDT [facility] Platelet Count 199 155 - 369 10*3/uL LAB HEMATOLOGY METHOD 03/16/2025 6:36 AM EDT [facility] MCV 88 79 - 98 fL LAB HEMATOLOGY METHOD 03/16/2025 6:36 AM EDT [facility] MCH 27.7 26.0 - 32.0 pg LAB HEMATOLOGY METHOD 03/16/2025 6:36 AM EDT [facility] MCHC 31.6 30.7 - 35.5 g/dL LAB HEMATOLOGY METHOD 03/16/2025 6:36 AM EDT [facility] RDW 17.0(H) 11.5 - 14.5 % LAB HEMATOLOGY METHOD 03/16/2025 6:36 AM EDT [facility] MPV 9.3 8.8 - 12.5 fL LAB HEMATOLOGY METHOD 03/16/2025 6:36 AM EDT [facility] nRBC 0.0 <=0.0 per 100 WBCs LAB HEMATOLOGY METHOD 03/16/2025 6:36 AM EDT [facility] Blood Venous blood specimen / Unknown Venipuncture / Unknown 03/16/2025 6:07 AM EDT 03/16/2025 6:26 AM EDT us Gt De La Paz MD LAB BLOOD ORDERABLES Final Res ult [facility] [address] [place] [address] * (ABNORMAL) Blood gas panel, venous (03/16/2025 6:07 AM EDT) pH, Venous 7.33 7.32 - 7.43 LAB HEMATOLOGY METHOD 03/16/2025 6:24 AM EDT [facility] pCO2, Venous 61(HH) 40 - 55 mmHg LAB HEMATOLOGY METHOD 03/16/2025 6:24 AM EDT [facility] pO2, Venous 101(H) 25 - 40 mmHg LAB HEMATOLOGY METHOD 03/16/2025 6:24 AM EDT [facility] SO2, Measured, Venous 99(H) 65 - 80 % LAB HEMATOLOGY METHOD 03/16/2025 6:24 AM EDT [facility] Base Excess, Venous 5.0(H) -2.0 - 3.0 mmol/L LAB HEMATOLOGY METHOD 03/16/2025 6:24 AM EDT [facility] Bicarbonate, Calculated, Venous 33(H) 22 - 26 mmol/L LAB HEMATOLOGY METHOD 03/16/2025 6:24 AM EDT [facility] Hematocrit, Whole Blood 37.8(L) 40.0 - 51.0 % LAB HEMATOLOGY METHOD 03/16/2025 6:24 AM EDT [facility] Sodium, Whole Blood 142 136 - 145 mmol/L LAB HEMATOLOGY METHOD 03/16/2025 6:24 AM EDT [facility] Potassium, Whole Blood 4.4 3.6 - 4.9 mmol/L LAB HEMATOLOGY METHOD 03/16/2025 6:24 AM EDT [facility] Chloride, Whole Blood 105 97 - 107 mmol/L LAB HEMATOLOGY METHOD 03/16/2025 6:24 AM EDT [facility] Glucose, Whole Blood 91 74 - 99 mg/dL LAB HEMATOLOGY METHOD 03/16/2025 6:24 AM EDT [facility] Lactate, Venous, Whole Blood 0.6 0.5 - 2.2 mmol/L LAB HEMATOLOGY METHOD 03/16/2025 6:24 AM EDT [facility] Ionized Calcium, Whole Blood 4.7 4.6 - 5.1 mg/dL LAB HEMATOLOGY METHOD 03/16/2025 6:24 AM EDT [facility] Blood Venous blood specimen / Unknown Venipuncture / Unknown 03/16/2025 6:07 AM EDT 03/16/2025 6:21 AM EDT Mariah Mcgowan MD LAB BLOOD ORDERABLES Final Result [facility] [address] [place] [address] * POCT glucose meter (03/16/2025 12:50 AM EDT) Pathologist [facility] POCT Glucose 89 74 - 99 mg/dL 03/16/2025 12:53 AM EDT [facility] Comment:Accuracy of a glucos e result [...] Comment 03/16/2025 12:53 AM EDT HEALTHCARE LAB Stamp Pad Maker ID Arlen Jackson 025 12:53 AM EDT HEALTHCARE LAB Device ID [id number] 03/16/2025 12:53 AM EDT HEALTHCARE LAB Specimen Type POC Capillary 03/16/2025 12:53 AM EDT [facility]ALTH[facility]ARE LAB Blood Capillary blood specimen / Unknown 03/16/2025 12:50 AM EDT 03/16/2025 12:53 AM EDT Delfino Aceves MD LAB POINT OF CARE TE ST DOCKED DEVICE UNSOLICITED RESULTS Final Result Performing Organization Address City/[facility] Co de Phone Number HEALTHCARE LAB [address] [place] [address] * (ABNORMAL) POCT glucose meter (03/15/2025 11:33 PM EDT) POCT Glucose 109(H) 74 - 99 mg/dL [...] Comment 03/15/2025 11:35 PM EDT HEALTHCARE LAB Stamp Pad Maker ID Casie Street 03/15/2025 11:35 PM EDT HEALTHCARE LAB Device ID [id number] 03/15/2025 11:35 PM EDT HEALTHCARE LAB Specimen Type POC Capillary 03/15/2025 11:35 PM EDT [facility]ALTH[facility]ARE LAB Blood Capillary blood specimen / Unknown 03/15/2025 11:33 PM EDT 03/15/2025 11:35 PM EDT us Delfino Aceves MD LAB POINT OF CARE TE ST DOCKED DEVICE UNSOLICITED RESULTS Final Result Performing Organization Address City/[facility]/ZIP Co de Phone Number HEALTHCARE LAB [address] [place] [address] * (ABNORMAL) POCT glucose meter (03/15/2025 8:33 PM EDT) [facility] POCT Glucose 107(H) 74 - 99 mg/dL [...] Comment 03/15/2025 8:34 PM EDT HEALTHCARE LAB Stamp Pad Maker ID Casie Street 03/15/2025 8:34 PM EDT HEALTHCARE LAB Device ID [id number] 03/15/2025 8:34 PM EDT HEALTHCARE LAB Specimen Type POC Capillary 03/15/2025 8:34 PM EDT HEALTHCARE LAB Blood Capillary blood specimen / Unknown 03/15/2025 8:33 PM EDT 03/15/2025 8:34 PM EDT Delfino Aceves MD LAB POINT OF CARE TE ST DOCKED DEVICE UNSOLICITED RESULTS Final Result Performing Organization Address City/State/[facility] Co de Phone Number HEALTHCARE LAB [address] [place] [address] * POCT glucose meter (03/15/2025 5:58 PM EDT) [facility] POCT Glucose 98 74 - 99 mg/dL [...] 03/15/2025 5:59 PM EDT [facility] Stamp Pad Maker ID Shellie Casarez 025 5:59 PM EDT [facility] Device ID [id number] 03/15/2025 5:59 PM EDT HEALTHCARE LAB Specimen Type POC Capillary 03/15/2025 5:59 PM EDT [facility] Blood Capillary blood specimen / Unknown 03/15/2025 5:58 PM EDT 03/15/2025 5:59 PM EDT Delfino Aceves MD LAB POINT OF CARE TE ST DOCKED DEVICE UNSOLICITED RESULTS Final Result [facility] [address] [place] [address] * (ABNORMAL) POCT glucose meter (03/15/2025 1:06 [...] Comment 03/15/2025 1:07 PM EDT HEALTHCARE LAB Stamp Pad Maker ID Shellie Casarez 025 1:07 PM EDT HEALTHCARE LAB Device ID [id number] 03/15/2025 1:07 PM EDT [facility] Specimen Type POC Capillary 03/15/2025 1:07 PM EDT [facility] Blood Capillary blood specimen / Unknown 03/15/2025 1:06 PM EDT 03/15/2025 1:07 PM EDT Delfino Aceves MD LAB POINT OF CARE TE ST DOCKED DEVICE UNSOLICITED RESULTS Final Result [facility] [address] [place] [address] * POCT glucose meter (03/15/2025 12:11 PM [...] Comment 03/15/2025 12:12 PM EDT HEALTHCARE LAB Stamp Pad Maker ID Shellie Casarez 025 12:12 PM EDT HEALTHCARE LAB Device ID [id number] 03/15/2025 12:12 PM EDT HEALTHCARE LAB Specimen Type POC Capillary 03/15/2025 12:12 PM EDT [facility]ALTH[facility]ARE LAB Blood Capillary blood specimen / Unknown 03/15/2025 12:11 PM EDT 03/15/2025 12:12 PM EDT us Delfino Aceves MD LAB POINT OF CARE TE ST DOCKED DEVICE UNSOLICITED RESULTS Final Result Performing Organization Address City/State/[facility] Co de Phone Number HEALTHCARE LAB [address] [place] [address] * (ABNORMAL) POCT glucose meter (03/15/2025 6:29 AM EDT) POCT Glucose 111(H) 74 - 99 mg/dL [...] Comment 03/15/2025 6:31 AM EDT HEALTHCARE LAB Stamp Pad Maker ID Heraclio Gomez 03/15/2025 6:31 AM EDT HEALTHCARE LAB Device ID [id number] 03/15/2025 6:31 AM EDT HEALTHCARE LAB Specimen Type POC Capillary 03/15/2025 6:31 AM EDT [facility] Blood Capillary blood specimen / Unknown 03/15/2025 6:29 AM EDT 03/15/2025 6:31 AM EDT us Delfino Aceves MD LAB POINT OF CARE TE ST DOCKED DEVICE UNSOLICITED RESULTS Final Result Performing Organization Address City/State/[facility] Co de Phone Number [facility] [address] [place] [address] * (ABNORMAL) Basic metabolic panel (03/15/2025 3:27 AM EDT) Glucose, Plasma 89 74 - 99 mg/dL 03/15/2025 4:08 AM EDT [facility] BUN, Plasma 35(H) 8 - 23 mg/dL 03/15/2025 4:08 AM EDT [facility] Creatinine, Plasma 1.75(H) 0.70 - 1.20 mg/dL 03/15/2025 4:08 AM EDT [facility] BUN/Creatinine Ratio 03/15/2025 4:08 AM EDT [facility] Sodium, Plasma 141 136 - 145 mmol/L 03/15/2025 4:08 AM EDT [facility] Potassium, Plasma 4.6 3.6 - 4.9 mmol/L 03/15/2025 4:08 AM EDT [facility] Chloride, Plasma 102 97 - 107 mmol/L 03/15/2025 4:08 AM EDT [facility] CO2, Plasma 28 22 - 29 mmol/L 03/15/2025 4:08 AM EDT [facility] Anion Gap 11 6 - 16 mmol/L 03/15/2025 4:08 AM EDT [facility] Total Calcium, Plasma 9.1 8.9 - 10.2 mg/dL 03/15/2025 4:08 AM EDT [facility] eGFRcr 40.9 mL/min/1.7 3m*2 03/15/2025 4:08 AM EDT [facility] Comment:Reported eGFRcr in m L/min/1.73m2 is based the CKD-EPI 2020 equation that does not use a race coefficient. Blood Venous blood specimen / Unknown Venipuncture / Unknown 03/15/2025 3:27 AM EDT 03/15/2025 3:37 AM EDT us Gt De La Paz MD LAB BLOOD ORDERABLES Final Res ult [facility] [address] [place] [address] * (ABNORMAL) CBC W/O Differential (03/15/2025 3:27 AM EDT) WBC Count 8.63 3.70 - 10.30 10*3/uL LAB HEMATOLOGY METHOD 03/15/2025 3:45 AM EDT [facility] RBC Count 4.59(L) 4.60 - 6.10 10*6/uL LAB HEMATOLOGY METHOD 03/15/2025 3:45 AM EDT [facility] HGB 12.8(L) 13.7 - 17.5 g/dL LAB HEMATOLOGY METHOD 03/15/2025 3:45 AM EDT [facility] HCT 40.0 40.0 - 51.0 % LAB HEMATOLOGY METHOD 03/15/2025 3:45 AM EDT [facility] Platelet Count 207 155 - 369 10*3/uL LAB HEMATOLOGY METHOD 03/15/2025 3:45 AM EDT [facility] MCV 87 79 - 98 fL LAB HEMATOLOGY METHOD 03/15/2025 3:45 AM EDT [facility] MCH 27.9 26.0 - 32.0 pg LAB HEMATOLOGY METHOD 03/15/2025 3:45 AM EDT [facility] MCHC 32.0 30.7 - 35.5 g/dL LAB HEMATOLOGY METHOD 03/15/2025 3:45 AM EDT [facility] RDW 17.2(H) 11.5 - 14.5 % LAB HEMATOLOGY METHOD 03/15/2025 3:45 AM EDT [facility] MPV 9.6 8.8 - 12.5 fL LAB HEMATOLOGY METHOD 03/15/2025 3:45 AM EDT [facility] nRBC 0.0 <=0.0 per 100 WBCs LAB HEMATOLOGY METHOD 03/15/2025 3:45 AM EDT [facility] Blood Venous blood specimen / Unknown Venipuncture / Unknown 03/15/2025 3:27 AM EDT 03/15/2025 3:37 AM EDT us Gt De La Paz MD LAB BLOOD ORDERABLES Final Res ult [facility] [address] [place] [address] * (ABNORMAL) Blood gas panel, venous (03/15/2025 3:27 AM EDT) pH, Venous 7.37 7.32 - 7.43 LAB HEMATOLOGY METHOD 03/15/2025 3:39 AM EDT [facility] pCO2, Venous 57(H) 40 - 55 mmHg LAB HEMATOLOGY METHOD 03/15/2025 3:39 AM EDT [facility] pO2, Venous 63(H) 25 - 40 mmHg LAB HEMATOLOGY METHOD 03/15/2025 3:39 AM EDT [facility] SO2, Measured, Venous 93(H) 65 - 80 % LAB HEMATOLOGY METHOD 03/15/2025 3:39 AM EDT [facility] Base Excess, Venous 5.9(H) -2.0 - 3.0 mmol/L LAB HEMATOLOGY METHOD 03/15/2025 3:39 AM EDT [facility] Bicarbonate, Calculated, Venous 33(H) 22 - 26 mmol/L LAB HEMATOLOGY METHOD 03/15/2025 3:39 AM EDT [facility] Hematocrit, Whole Blood 37.5(L) 40.0 - 51.0 % LAB HEMATOLOGY METHOD 03/15/2025 3:39 AM EDT [facility] Sodium, Whole Blood 141 136 - 145 mmol/L LAB HEMATOLOGY METHOD 03/15/2025 3:39 AM EDT [facility] Potassium, Whole Blood 4.4 3.6 - 4.9 mmol/L LAB HEMATOLOGY METHOD 03/15/2025 3:39 AM EDT [facility] Chloride, Whole Blood 102 97 - 107 mmol/L LAB HEMATOLOGY METHOD 03/15/2025 3:39 AM EDT [facility] Glucose, Whole Blood 88 74 - 99 mg/dL LAB HEMATOLOGY METHOD 03/15/2025 3:39 AM EDT [facility] Lactate, Venous, Whole Blood 0.9 0.5 - 2.2 mmol/L LAB HEMATOLOGY METHOD 03/15/2025 3:39 AM EDT [facility] Ionized Calcium, Whole Blood 4.6 4.6 - 5.1 mg/dL LAB HEMATOLOGY METHOD 03/15/2025 3:39 AM EDT [facility] Blood Venous blood specimen / Unknown Venipuncture / Unknown 03/15/2025 3:27 AM EDT 03/15/2025 3:37 AM EDT Mariah Mcgowan MD LAB BLOOD ORDERABLES Final Result [facility] [address] [place] [address] * (ABNORMAL) Blood gas panel, venous (03/14/2025 10:21 PM EDT) pH, Venous 7.36 7.32 - 7.43 LAB HEMATOLOGY METHOD 03/14/2025 10:33 PM EDT [facility] pCO2, Venous 60(HH) 40 - 55 mmHg LAB HEMATOLOGY METHOD 03/14/2025 10:33 PM EDT [facility] pO2, Venous 49(H) 25 - 40 mmHg LAB HEMATOLOGY METHOD 03/14/2025 10:33 PM EDT [facility] SO2, Measured, Venous 81(H) 65 - 80 % LAB HEMATOLOGY METHOD 03/14/2025 10:33 PM EDT [facility] Base Excess, Venous 6.2(H) -2.0 - 3.0 mmol/L LAB HEMATOLOGY METHOD 03/14/2025 10:33 PM EDT [facility] Bicarbonate, Calculated, Venous 33(H) 22 - 26 mmol/L LAB HEMATOLOGY METHOD 03/14/2025 10:33 PM EDT [facility] Hematocrit, Whole Blood 37.6(L) 40.0 - 51.0 % LAB HEMATOLOGY METHOD 03/14/2025 10:33 PM EDT [facility] Sodium, Whole Blood 140 136 - 145 mmol/L LAB HEMATOLOGY METHOD 03/14/2025 10:33 PM EDT [facility] Potassium, Whole Blood 5.0(H) 3.6 - 4.9 mmol/L LAB HEMATOLOGY METHOD 03/14/2025 10:33 PM EDT [facility] Chloride, Whole Blood 102 97 - 107 mmol/L LAB HEMATOLOGY METHOD 03/14/2025 10:33 PM EDT [facility] Glucose, Whole Blood 94 74 - 99 mg/dL LAB HEMATOLOGY METHOD 03/14/2025 10:33 PM EDT [facility] Lactate, Venous, Whole Blood 0.8 0.5 - 2.2 mmol/L LAB HEMATOLOGY METHOD 03/14/2025 10:33 PM EDT [facility] Ionized Calcium, Whole Blood 4.6 4.6 - 5.1 mg/dL LAB HEMATOLOGY METHOD 03/14/2025 10:33 PM EDT [facility] Blood Venous blood specimen / Unknown Venipuncture / Unknown 03/14/2025 10:21 PM EDT 03/14/2025 10:31 PM EDT us Delfino Aceves MD LAB BLOOD ORDERABLES Final Resul t Performing Organization Address City/[facility] Co de Phone Number [facility] [address] [place] [address] * POCT glucose meter (03/14/2025 5:01 PM EDT) [facility] POCT Glucose 96 74 - 99 mg/dL [...] for testing. Comment 03/14/2025 5:03 PM EDT [facility] Stamp Pad Maker ID Lewis Alejandre Geovanna 025 5:03 PM EDT [facility]ARE [facility] Device ID [id number] 03/14/2025 5:03 PM EDT [facility]ARE [facility] Specimen Type POC Capillary 03/14/2025 5:03 PM EDT [facility] Blood Capillary blood specimen / Unknown 03/14/2025 5:01 PM EDT 03/14/2025 5:03 PM EDT us Delfino Aceves MD LAB POINT OF CARE TE ST DOCKED DEVICE UNSOLICITED RESULTS Final Result Performing Organization Address City/[facility]/ZIP Co de Phone Number [facility] [address] [place] [address] * (ABNORMAL) Blood gas panel, venous (03/14/2025 2:19 PM EDT) pH, Venous 7.36 7.32 - 7.43 LAB HEMATOLOGY METHOD 03/14/2025 2:31 PM EDT [facility] pCO2, Venous 56(H) 40 - 55 mmHg LAB HEMATOLOGY METHOD 03/14/2025 2:31 PM EDT [facility] pO2, Venous 49(H) 25 - 40 mmHg LAB HEMATOLOGY METHOD 03/14/2025 2:31 PM EDT [facility] SO2, Measured, Venous 82(H) 65 - 80 % LAB HEMATOLOGY METHOD 03/14/2025 2:31 PM EDT [facility] Base Excess, Venous 4.8(H) -2.0 - 3.0 mmol/L LAB HEMATOLOGY METHOD 03/14/2025 2:31 PM EDT [facility] Bicarbonate, Calculated, Venous 32(H) 22 - 26 mmol/L LAB HEMATOLOGY METHOD 03/14/2025 2:31 PM EDT [facility] Hematocrit, Whole Blood 36.3(L) 40.0 - 51.0 % LAB HEMATOLOGY METHOD 03/14/2025 2:31 PM EDT [facility] Sodium, Whole Blood 138 136 - 145 mmol/L LAB HEMATOLOGY METHOD 03/14/2025 2:31 PM EDT [facility] Potassium, Whole Blood 4.5 3.6 - 4.9 mmol/L LAB HEMATOLOGY METHOD 03/14/2025 2:31 PM EDT [facility] Chloride, Whole Blood 100 97 - 107 mmol/L LAB HEMATOLOGY METHOD 03/14/2025 2:31 PM EDT [facility] Glucose, Whole Blood 85 74 - 99 mg/dL LAB HEMATOLOGY METHOD 03/14/2025 2:31 PM EDT [facility] Lactate, Venous, Whole Blood 1.1 0.5 - 2.2 mmol/L LAB HEMATOLOGY METHOD 03/14/2025 2:31 PM EDT [facility] Ionized Calcium, Whole Blood 4.6 4.6 - 5.1 mg/dL LAB HEMATOLOGY METHOD 03/14/2025 2:31 PM EDT [facility] Blood Venous blood specimen / Unknown Venipuncture / Unknown 03/14/2025 2:19 PM EDT 03/14/2025 2:29 PM EDT us Delfino Aceves MD LAB BLOOD ORDERABLES Final Resul t [facility] [address] [place] [address] * EEG (03/14/2025 1:31 PM EDT) Anatomical [...] - Standard Dose 0-5 Units Subcutaneous q6h Lay Conroy DO ipratropium-albuterol (Duo-Neb) 0.5-2.5 mg/3 mL nebulizer [...] POCT glucose meter (03/14/2025 12:03 PM EDT) [facility] POCT Glucose 90 74 - 99 mg/dL [...] for testing. Comment 03/14/2025 12:05 PM EDT [facility] Stamp Pad Maker ID Lewis Alejandre 025 12:05 PM EDT [facility]ARE LAB Device ID [id number] 03/14/2025 12:05 PM EDT [facility] Specimen Type POC Capillary 03/14/2025 12:05 PM EDT [facility] Blood Capillary blood specimen / Unknown 03/14/2025 12:03 PM EDT 03/14/2025 12:05 PM EDT Delfino Aceves MD LAB POINT OF CARE TE ST DOCKED DEVICE UNSOLICITED RESULTS Final Result [facility] [address] [place] [address] * [place] CRITICAL CARE, E/M 30-74 MINUTES (03/14/2025 7:18 [...] 03/14/2025 6:24 AM EDT [facility] Stamp Pad Maker ID Heraclio Gomez 03/14/2025 6:24 AM EDT [facility] Device ID [id number] 03/14/2025 6:24 AM EDT [facility]ALTHCARE LAB Specimen Type POC Capillary 03/14/2025 6:24 AM EDT [facility] Blood Capillary blood specimen / Unknown 03/14/2025 6:23 AM EDT 03/14/2025 6:24 AM EDT us Gt De La Paz MD LAB POINT OF CARE TE ST DOCKED DEVICE UNSOLICITED RESULTS Final Result [facility] [address] [place] [address] * MR Head wo IV Contrast (03/14/2025 [...] present. Procedure Note Martín Ocasio MD - 05/19/2025 CLINICAL INDICATION: Mental status change, unknown cause [...] - 99 mg/dL 03/14/2025 1:11 AM EDT [facility] BUN, Plasma 40(H) 8 - 23 mg/dL 03/14/2025 1:11 AM EDT [facility] Creatinine, Plasma 2.06(H) 0.70 - 1.20 mg/dL 03/14/2025 1:11 AM EDT [facility] BUN/Creatinine Ratio 03/14/2025 1:11 AM EDT [facility] Sodium, Plasma 136 136 - 145 mmol/L 03/14/2025 1:11 AM EDT [facility] Potassium, Plasma 4.9 3.6 - 4.9 mmol/L 03/14/2025 1:11 AM EDT [facility] Chloride, Plasma 98 97 - 107 mmol/L 03/14/2025 1:11 AM EDT [facility] CO2, Plasma 25 22 - 29 mmol/L 03/14/2025 1:11 AM EDT [facility] Anion Gap 13 6 - 16 mmol/L 03/14/2025 1:11 AM EDT [facility] Total Calcium, Plasma 8.9 8.9 - 10.2 mg/dL 03/14/2025 1:11 AM EDT [facility] eGFRcr 33.6 mL/min/1.7 3m*2 03/14/2025 1:11 AM EDT [facility] Comment:Reported eGFRcr in m L/min/1.73m2 is based the CKD-EPI 2020 equation that does not use a race coefficient. Blood Venous blood specimen / Unknown Venipuncture / Unknown 03/14/2025 12:34 AM EDT 03/14/2025 12:44 AM EDT us Gt De La Paz MD LAB BLOOD ORDERABLES Final Res ult [facility] [address] [place] [address] * (ABNORMAL) CBC W/O Differential (03/14/2025 12:34 AM EDT) WBC Count 8.78 3.70 - 10.30 10*3/uL LAB HEMATOLOGY METHOD 03/14/2025 1:01 AM EDT [facility] RBC Count 4.11(L) 4.60 - 6.10 10*6/uL LAB HEMATOLOGY METHOD 03/14/2025 1:01 AM EDT [facility] HGB 11.3(L) 13.7 - 17.5 g/dL LAB HEMATOLOGY METHOD 03/14/2025 1:01 AM EDT [facility] HCT 34.2(L) 40.0 - 51.0 % LAB HEMATOLOGY METHOD 03/14/2025 1:01 AM EDT [facility] Platelet Count 192 155 - 369 10*3/uL LAB HEMATOLOGY METHOD 03/14/2025 1:01 AM EDT [facility] MCV 83 79 - 98 fL LAB HEMATOLOGY METHOD 03/14/2025 1:01 AM EDT [facility] MCH 27.5 26.0 - 32.0 pg LAB HEMATOLOGY METHOD 03/14/2025 1:01 AM EDT [facility] MCHC 33.0 30.7 - 35.5 g/dL LAB HEMATOLOGY METHOD 03/14/2025 1:01 AM EDT [facility] RDW 16.8(H) 11.5 - 14.5 % LAB HEMATOLOGY METHOD 03/14/2025 1:01 AM EDT [facility] MPV 9.3 8.8 - 12.5 fL LAB HEMATOLOGY METHOD 03/14/2025 1:01 AM EDT [facility] nRBC 0.0 <=0.0 per 100 WBCs LAB HEMATOLOGY METHOD 03/14/2025 1:01 AM EDT [facility] Blood Venous blood specimen / Unknown Venipuncture / Unknown 03/14/2025 12:34 AM EDT 03/14/2025 12:47 AM EDT us Gt De La Paz MD LAB BLOOD ORDERABLES Final Res ult [facility] [address] [place] [address] * (ABNORMAL) Blood gas panel, venous (03/14/2025 12:34 AM EDT) pH, Venous 7.47(H) 7.32 - 7.43 LAB HEMATOLOGY METHOD 03/14/2025 12:45 AM EDT [facility] pCO2, Venous 40 40 - 55 mmHg LAB HEMATOLOGY METHOD 03/14/2025 12:45 AM EDT [facility] pO2, Venous 90(H) 25 - 40 mmHg LAB HEMATOLOGY METHOD 03/14/2025 12:45 AM EDT [facility] SO2, Measured, Venous 99(H) 65 - 80 % LAB HEMATOLOGY METHOD 03/14/2025 12:45 AM EDT [facility] Base Excess, Venous 4.9(H) -2.0 - 3.0 mmol/L LAB HEMATOLOGY METHOD 03/14/2025 12:45 AM EDT [facility] Bicarbonate, Calculated, Venous 29(H) 22 - 26 mmol/L LAB HEMATOLOGY METHOD 03/14/2025 12:45 AM EDT [facility] Hematocrit, Whole Blood 34.1(L) 40.0 - 51.0 % LAB HEMATOLOGY METHOD 03/14/2025 12:45 AM EDT [facility] Sodium, Whole Blood 135(L) 136 - 145 mmol/L LAB HEMATOLOGY METHOD 03/14/2025 12:45 AM EDT [facility] Potassium, Whole Blood 4.6 3.6 - 4.9 mmol/L LAB HEMATOLOGY METHOD 03/14/2025 12:45 AM EDT [facility] Chloride, Whole Blood 101 97 - 107 mmol/L LAB HEMATOLOGY METHOD 03/14/2025 12:45 AM EDT [facility] Glucose, Whole Blood 112(H) 74 - 99 mg/dL LAB HEMATOLOGY METHOD 03/14/2025 12:45 AM EDT [facility] Lactate, Venous, Whole Blood 1.5 0.5 - 2.2 mmol/L LAB HEMATOLOGY METHOD 03/14/2025 12:45 AM EDT [facility] Ionized Calcium, Whole Blood 4.6 4.6 - 5.1 mg/dL LAB HEMATOLOGY METHOD 03/14/2025 12:45 AM EDT [facility] Blood Venous blood specimen / Unknown Venipuncture / Unknown 03/14/2025 12:34 AM EDT 03/14/2025 12:43 AM EDT us Mariah Mcgowan MD LAB BLOOD ORDERABLES Final Result [facility] [address] [place] [address] * Triglycerides (03/14/2025 12:34 AM EDT) Triglycerides, Plasma 114 <150 mg/dL 03/14/2025 1:11 AM EDT [facility] Comment: Triglyceride Reference Range (age >17 years): Desirable: <150 mg/dL Borderline high: 150 to 199 mg/dL High: 200 to 499 mg/dL Very high: >499 mg/dL Increased risk of pancreatitis: >1000 mg/dL Fasting greater than or equal to 12 hours? Yes 03/14/2025 1:11 AM EDT [facility] Blood Venous blood specimen / Unknown Venipuncture / Unknown 03/14/2025 12:34 AM EDT 03/14/2025 12:44 AM EDT us Staci Castro LAB BLOOD ORDERABLES Final Resul t Performing Organization Address [facility] Co de Phone Number [facility] [address] [place] [address] * (ABNORMAL) POCT glucose meter (03/14/2025 12:30 AM EDT) POCT Glucose 118(H) 74 - 99 mg/dL 03/14/2025 12:32 AM EDT [facility] Comment:Accuracy of a glucos e result [...] Comment 03/14/2025 12:32 AM EDT [facility] Stamp Pad Maker ID Heraclio Gomez 03/14/2025 12:32 AM EDT [facility] Device ID [id number] 03/14/2025 12:32 AM EDT [facility] Specimen Type POC Venous 03/14/2025 12:32 AM EDT [facility] Blood Venous blood specimen / Unknown 03/14/2025 12:30 AM EDT 03/14/2025 12:32 AM EDT us Gt De La Paz MD LAB POINT OF CARE TE ST DOCKED DEVICE UNSOLICITED RESULTS Final Result Performing Organization Address City/[facility]/ZIP Co de Phone Number [facility] [address] [place] [address] * (ABNORMAL) POCT glucose meter (03/13/2025 6:25 PM EDT) Pathologist [facility] POCT Glucose 129(H) 74 - 99 mg/dL [...] Comment 03/13/2025 6:26 PM EDT [facility]ARE [facility] Stamp Pad Maker ID Leeanna Linda 03/13/2025 6:26 PM EDT [facility]ALTH[facility]ARE LAB Device ID [id number] 03/13/2025 6:26 PM EDT [facility] Specimen Type POC Capillary 03/13/2025 6:26 PM EDT [facility] Blood Capillary blood specimen / Unknown 03/13/2025 6:25 PM EDT 03/13/2025 6:26 PM EDT us Gt De La Paz MD LAB POINT OF CARE TE ST DOCKED DEVICE UNSOLICITED RESULTS Final Result Performing Organization Address City/State/[facility] Co de Phone Number [facility] [address] [place] [address] * (ABNORMAL) POCT glucose meter (03/13/2025 12:14 PM EDT) Pathologist [facility] POCT Glucose 123(H) 74 - 99 mg/dL [...] 03/13/2025 12:16 PM EDT [facility] Stamp Pad Maker ID Leeanna Linda 03/13/2025 12:16 PM EDT [facility] Device ID [id number] 03/13/2025 12:16 PM EDT [facility] Specimen Type POC Capillary 03/13/2025 12:16 PM EDT [facility] Blood Capillary blood specimen / Unknown 03/13/2025 12:14 PM EDT 03/13/2025 12:16 PM EDT us Gt De La Paz MD LAB POINT OF CARE TE ST DOCKED DEVICE UNSOLICITED RESULTS Final Result Performing Organization Address City/[facility]/ZIP Co de Phone Number [facility] [address] [place] [address] * Body fluid, cytospin, pathologist interpretation (03/13/2025 11:34 AM EDT) Specimen Type Bronchoalveolar Lavage LAB HEMATOLOGY METHOD 03/14/2025 3:40 PM EDT [facility] Specimen Source, Body Fluid Lung, Right Middle Lobe LAB HEMATOLOGY METHOD 03/14/2025 3:40 PM EDT [facility] Clinical Diagnosis, Body Fluid Concern for R sided post-obstructive pneumonia in setting of pulmonary mass LAB HEMATOLOGY METHOD 03/14/2025 3:40 PM EDT [facility] Interpretation , Body Fluid No evidence of malignancy Predominantly alveolar macrophages Mild acute inflammatory cells A resident was involved in the service. I attest I examined the relevant preparations for the specimens and confirmed the diagnosis or interpretation. 03/14/2025 3:40 PM EDT [facility] Pathologist Signature, Body Fluid 03/14/2025 3:40 PM EDT [facility] Comment:Reviewed by: Mónica colin MD LAB CP ASR DISCLAIMER Yes 03/14/2025 3:40 PM EDT [facility] Bronchoalveolar Lavage Structure of middle lobe of right lung / Unknown 03/13/2025 11:34 AM EDT 03/13/2025 11:46 AM EDT us Gt De La Paz MD LAB BODY FLUIDS AND STOOLS ORD ERABLES Final Result Performing Organization Address City/[facility]/ZIP Co de Phone Number [facility] [address] [place] [address] * BAL Comprehensive Respiratory Panel by PCR (03/13/2025 11:34 AM EDT) BAL Comprehensive PCR Result Not Detected for all analytes Not Detected for all analytes 03/13/2025 1:44 PM EDT [facility] Bronchoalveolar Lavage Bronchoalveolar lavage fluid specimen / Unknown 03/13/2025 11:34 AM EDT 03/13/2025 1:08 PM EDT Narrative [facility] - 03/13/2025 1:44 PM EDT This [...] developed and its performance characteristics determined by [facility] as appropriate for clinical purposes. This assay has not been cleared or approved by the FDA, but is performed in a CLIA regulated laboratory that is performed in a CLIA regulated laboratory that is qualified to perform high-complexity testing. The [facility] is certified under the Clinical Laboratory Improvement Amendments of 1988 (CLIA-88) as qualified to perform high complexity clinical laboratory testing. us Gt De La Paz MD LAB MICROBIOLOGY - GENERAL ORD ERABLES Final Result [facility] [address] [place] [address] * Pneumocystis Jirovecii by PCR (03/13/2025 11:34 AM EDT) P. Jirovecii by PCR Not Detected 03/17/2025 12:16 AM EDT [facility] ([employer]) P. Jirovecii Source BAL 03/17/2025 12:16 AM EDT [facility] ([employer]) Bronchoalveolar Lavage Bronchoalveolar lavage fluid specimen / Unknown 03/13/2025 11:34 AM EDT 03/13/2025 11:46 AM EDT Narrative [facility] ([employer]) - 03/17/2025 12:16 AM EDT NOT DETECTED - A negative result does not rule out the presence of PCR inhibitors in the patient specimen or assay specific nucleic acid in concentrations below the level of detection by the assay. This test was developed and its performance characteristics determined by [employer]. It has not been cleared or approved by the [place] Food and Drug Administration. This test was performed in a CLIA certified laboratory and is intended for clinical purposes. Performed By: [facility] [employer] [address] [place] [address] [employer] Corem[employer]: Saqib Cortes MD, PhD CLIA Number: [id number] us Gt De La Paz MD LAB REF LAB BLOOD AND FLUID OR D Final Result [facility] ([facility] [address] [place] [address] * Aspergillus galactomannan antigen (03/13/2025 11:34 AM EDT) Pathologist [facility] Aspergillus galactomannan EIA (BAL) 0.051 <0.500 03/15/2025 [...] Aspergillus Galactomannan EIA is a product of [employer] [facility] and is FDA approved for in vitro diagnostic use. Testing Performed at: [employer] [address] [place] [address], [address] [place] [address] [employer]: Dominick Gonsalez, PhD [facility] ([facility]) CLIA # [id number] FLAG Interpretation: A = Abnormal, H = High, L = Low Bronchoalveolar Lavage Bronchoalveolar lavage fluid specimen / Unknown 03/13/2025 11:34 AM EDT 03/13/2025 11:46 AM EDT Narrative [facility] - 03/15/2025 6:38 PM EDT [facility] us Gt De La Paz MD LAB BODY FLUIDS AND STOOLS ORD ERABLES Final Result [facility]) * Fungal Culture, Respiratory and ADAIR (03/13/2025 11:34 AM EDT) Culture No Fungal Growth at 6 Weeks 04/24/2025 10:12 AM EDT [facility] ADAIR No fungal elements seen 04/24/2025 10:12 AM EDT [facility] Bronchoalveolar Lavage Bronchoalveolar lavage fluid specimen / Unknown 03/13/2025 11:34 AM EDT 03/13/2025 1:08 PM EDT us Gt De La Paz MD LAB MICROBIOLOGY - GENERAL ORD ERABLES Final Result [facility] [address] [place] [address] * Non-Gynecologic Cytology, Fluid (03/13/2025 11:34 AM EDT) Case Report Cytology Case: [id number] Authorizing Provider: Gt De La Paz MD Collected: 03/13/2025 1134 Ordering Location: [facility] Inpatient Received: 03/14/2025 0828 Pathologist: Kai Gilbert MD Specimen: Bronchial Washing, Right Middle Lobe, BRONCHIAL WASHING, RIGHT MIDDLE LOBE 03/14/2025 5:45 PM EDT [facility] Final Diagnosis A. BRONCHIAL WASHING, RIGHT MIDDLE LOBE - NO EVIDENCE OF MALIGNANCY. NO VIRAL CHANGES IDENTIFIED, PREDOMINANTLY MACROPHAGES, GMS STAIN IS NEGATIVE FOR ORGANISMS. 03/14/2025 5:45 PM EDT [facility] at 1745 EDT Clinical History possible malignancy 03/14/2025 5:45 PM EDT [facility] Previous Cancer No 5:45 PM EDT [facility] Gross Description A. BRONCHIAL WASHING, RIGHT MIDDLE LOBE 20 ml's hazy fluid processed as thin prep and GMS 03/14/2025 5:45 PM EDT [facility] Non-Gynecologica l (Select Specimen Source) Specimen from lung obtained by bronchial washing procedure / Unknown 03/13/2025 11:34 AM EDT 03/14/2025 8:28 AM EDT us Gt De La Paz MD LAB CYTOLOGY ORDERABLES Final Result [facility] [address] [place] [address] * Bronchoalveolar Lavage Cell Count W/ Diff (03/13/2025 11:34 AM EDT) Neutrophils %, BAL 10 % LAB HEMATOLOGY METHOD 03/13/2025 5:20 PM EDT [facility] Lymphocytes %, BAL 0 % LAB HEMATOLOGY METHOD 03/13/2025 5:20 PM EDT [facility] Monocytes/Macrop hages %, BAL 84 % LAB HEMATOLOGY METHOD 03/13/2025 5:20 PM EDT [facility] Eosinophils %, BAL 0 % LAB HEMATOLOGY METHOD 03/13/2025 5:20 PM EDT [facility] Basophils %, BAL 0 % LAB HEMATOLOGY METHOD 03/13/2025 5:20 PM EDT [facility] Squamous Cells %, BAL 0 % LAB HEMATOLOGY METHOD 03/13/2025 5:20 PM EDT [facility] Bronchial Cells %, BAL 6 % LAB HEMATOLOGY METHOD 03/13/2025 5:20 PM EDT [facility] Other Cells %, BAL 0 % LAB HEMATOLOGY METHOD 03/13/2025 5:20 PM EDT [facility] Comment, BAL None LAB HEMATOLOGY METHOD 03/13/2025 5:20 PM EDT [facility] Comment:This is an appended report. These results have been appended to a previously preliminary verified report. Total Nucleated Cell Count, BAL 272 uL LAB HEMATOLOGY METHOD 03/13/2025 5:20 PM EDT [facility] Comment:Clot present, may af fect results. Test performed by manual method. Bronchoalveolar Lavage Structure of middle lobe of right lung / Unknown 03/13/2025 11:34 AM EDT 03/13/2025 11:46 AM EDT Gt De La Paz MD LAB BODY FLUIDS AND STOOLS ORD ERABLES Final Result [facility] [address] [place] [address] * AFB Culture, Respiratory Source and Acid Fast Stain (03/13/2025 11:34 AM EDT) AFB Culture No Mycobacterial Growth at 6 Weeks 04/25/2025 1:31 PM EDT [facility] Acid Fast Stain No acid fast bacilli seen 04/25/2025 1:31 PM EDT [facility] Bronchoalveolar Lavage Bronchoalveolar lavage fluid specimen / Unknown 03/13/2025 11:34 AM EDT 03/13/2025 1:08 PM EDT us Gt De La Paz MD LAB MICROBIOLOGY - GENERAL ORD ERABLES Final Result [facility] [address] [place] [address] * Quantitative BAL/PAL/Bronch Wash Culture and Gram StainBronchoalveolar Lavage, Right Middle Lobe (03/13/2025 11:34 AM EDT) Culture No growth at day 2 2024 8:18 AM EDT [facility] Gram Stain Result No polymorphonuclear leukocytes seen 03/15/2025 8:18 AM EDT [facility] Gram Stain Result No organisms seen 03/15/2025 8:18 AM EDT [facility] Bronchoalveolar Lavage Bronchoalveolar lavage fluid specimen / Unknown 03/13/2025 11:34 AM EDT 03/13/2025 1:08 PM EDT us Gt De La Paz MD LAB MICROBIOLOGY - GENERAL ORD ERABLES Final Result [facility] [address] [place] [address] * BEDSIDE BRONCHOSCOPY (03/13/2025 10:30 AM EDT) Narrative Gt De La Paz MD - 03/13/2025 10:30 AM EDT Gt De La Paz MD 03/14/2025 9:30 AM Bronchoscopy Performed by: Gt De La Paz MD Authorized by: Gt De La Paz MD us Gt De La Paz MD IN CLINIC/BEDSIDE ORDERABLES E dited Result - Final * [place] [facility], E/M 30-74 MINUTES (03/13/2025 7:06 [...] - 99 mg/dL 03/13/2025 6:24 AM EDT [facility] Comment:Accuracy of a glucos e result [...] for testing. Comment 03/13/2025 6:24 AM EDT [facility] Stamp Pad Maker ID Heraclio Gomez 03/13/2025 6:24 AM EDT [facility] LAB Device ID [id number] 03/13/2025 6:24 AM EDT [facility] Specimen Type POC Capillary 03/13/2025 6:24 AM EDT [facility] Blood Capillary blood specimen / Unknown 03/13/2025 6:22 AM EDT 03/13/2025 6:24 AM EDT us Mariah Mcgowan MD LAB POINT OF CARE TEST DOCKED DEVICE UNSOLICITED RESULTS Final Result Performing Organization Address City/State/[facility] Co de Phone Number [facility] [address] [place] [address] * (ABNORMAL) POCT glucose meter (03/13/2025 12:58 AM EDT) [facility] Signature POCT Glucose 167(H) 74 - 99 mg/dL [...] Comment 03/13/2025 12:59 AM EDT [facility] Stamp Pad Maker ID Leigh Vogt 025 12:59 AM EDT [facility] Device ID [id number] 03/13/2025 12:59 AM EDT [facility] Specimen Type POC Venous 03/13/2025 12:59 AM EDT [facility] Blood Venous blood specimen / Unknown 03/13/2025 12:58 AM EDT 03/13/2025 12:59 AM EDT us Mariah Mcgowan MD LAB POINT OF CARE TEST DOCKED DEVICE UNSOLICITED RESULTS Final Result Performing Organization Address City/[facility]/ZIP Co de Phone Number [facility] [address] [place] [address] * LACTIC ACID, VENOUS (03/13/2025 12:57 AM EDT) Lactate, Venous, Whole Blood 1.6 0.5 - 2.2 mmol/L LAB HEMATOLOGY METHOD 03/13/2025 1:12 AM EDT [facility] Blood Venous blood specimen / Unknown Venipuncture / Unknown 03/13/2025 12:57 AM EDT 03/13/2025 1:09 AM EDT Mariah Mcgowan MD LAB BLOOD ORDERABLES Final Result Performing Organization Address City/[facility]/ZIP Co de Phone Number [facility] [address] [place] [address] * (ABNORMAL) Comprehensive metabolic panel (03/13/2025 12:57 AM EDT) Glucose, Plasma 148(H) 74 - 99 mg/dL 03/13/2025 1:41 AM EDT [facility] BUN, Plasma 31(H) 8 - 23 mg/dL 03/13/2025 1:41 AM EDT [facility] Creatinine, Plasma 2.10(H) 0.70 - 1.20 mg/dL 03/13/2025 1:41 AM EDT [facility] BUN/Creatinine Ratio 15 03/13/2025 1:41 AM EDT [facility] Sodium, Plasma 136 136 - 145 mmol/L 03/13/2025 1:41 AM EDT [facility] Potassium, Plasma 4.5 3.6 - 4.9 mmol/L 03/13/2025 1:41 AM EDT [facility] Chloride, Plasma 99 97 - 107 mmol/L 03/13/2025 1:41 AM EDT [facility] CO2, Plasma 25 22 - 29 mmol/L 03/13/2025 1:41 AM EDT [facility] Anion Gap 12 6 - 16 mmol/L 03/13/2025 1:41 AM EDT [facility] Total Calcium, Plasma 9.2 8.9 - 10.2 mg/dL 03/13/2025 1:41 AM EDT [facility] Total Protein 6.5 6.3 - 7.9 g/dL 03/13/2025 1:41 AM EDT [facility] Albumin, Plasma 3.9 3.5 - 5.2 g/dL 03/13/2025 1:41 AM EDT [facility] AST, Plasma 16 10 - 50 U/L 03/13/2025 1:41 AM EDT [facility] ALT, Plasma 10 10 - 50 U/L 03/13/2025 1:41 AM EDT [facility] Alkaline Phosphatase, Plasma 77 40 - 115 U/L 03/13/2025 1:41 AM EDT [facility] Total Bilirubin, Plasma 0.3 0.2 - 1.1 mg/dL 03/13/2025 1:41 AM EDT [facility] eGFRcr 32.8 mL/min/1.7 3m*2 03/13/2025 1:41 AM EDT [facility] Comment:Reported eGFRcr in m L/min/1.73m2 is based the CKD-EPI 2020 equation that does not use a race coefficient. Blood Venous blood specimen / Unknown Venipuncture / Unknown 03/13/2025 12:57 AM EDT 03/13/2025 1:12 AM EDT Mariah Mcgowan MD LAB BLOOD ORDERABLES Final Result [facility] [address] [place] [address] * (ABNORMAL) Blood gas panel, venous (03/13/2025 12:57 AM EDT) pH, Venous 7.36 7.32 - 7.43 LAB HEMATOLOGY METHOD 03/13/2025 1:12 AM EDT [facility] pCO2, Venous 49 40 - 55 mmHg LAB HEMATOLOGY METHOD 03/13/2025 1:12 AM EDT [facility] pO2, Venous 66(H) 25 - 40 mmHg LAB HEMATOLOGY METHOD 03/13/2025 1:12 AM EDT [facility] SO2, Measured, Venous 95(H) 65 - 80 % LAB HEMATOLOGY METHOD 03/13/2025 1:12 AM EDT [facility] Base Excess, Venous 1.4 -2.0 - 3.0 mmol/L LAB HEMATOLOGY METHOD 03/13/2025 1:12 AM EDT [facility] Bicarbonate, Calculated, Venous 28(H) 22 - 26 mmol/L LAB HEMATOLOGY METHOD 03/13/2025 1:12 AM EDT [facility] Hematocrit, Whole Blood 35.6(L) 40.0 - 51.0 % LAB HEMATOLOGY METHOD 03/13/2025 1:12 AM EDT [facility] Sodium, Whole Blood 136 136 - 145 mmol/L LAB HEMATOLOGY METHOD 03/13/2025 1:12 AM EDT [facility] Potassium, Whole Blood 4.3 3.6 - 4.9 mmol/L LAB HEMATOLOGY METHOD 03/13/2025 1:12 AM EDT [facility] Chloride, Whole Blood 101 97 - 107 mmol/L LAB HEMATOLOGY METHOD 03/13/2025 1:12 AM EDT [facility] Glucose, Whole Blood 148(H) 74 - 99 mg/dL LAB HEMATOLOGY METHOD 03/13/2025 1:12 AM EDT [facility] Lactate, Venous, Whole Blood 1.6 0.5 - 2.2 mmol/L LAB HEMATOLOGY METHOD 03/13/2025 1:12 AM EDT [facility] Ionized Calcium, Whole Blood 4.8 4.6 - 5.1 mg/dL LAB HEMATOLOGY METHOD 03/13/2025 1:12 AM EDT [facility] Blood Venous blood specimen / Unknown Venipuncture / Unknown 03/13/2025 12:57 AM EDT 03/13/2025 1:09 AM EDT Mariah Mcgowan MD LAB BLOOD ORDERABLES Final Result [facility] [address] [place] [address] * Phosphorus, Plasma (03/13/2025 12:57 AM EDT) Phosphorus, Plasma 2.8 2.5 - 4.5 mg/dL 03/13/2025 1:41 AM EDT [facility] Blood Venous blood specimen / Unknown Venipuncture / Unknown 03/13/2025 12:57 AM EDT 03/13/2025 1:12 AM EDT us Mariah Mcgowan MD LAB BLOOD ORDERABLES Final Result [facility] [address] [place] [address] * (ABNORMAL) Magnesium, Plasma (03/13/2025 12:57 AM EDT) Magnesium, Plasma 1.7(L) 1.9 - 2.4 mg/dL 03/13/2025 1:41 AM EDT [facility] Blood Venous blood specimen / Unknown Venipuncture / Unknown 03/13/2025 12:57 AM EDT 03/13/2025 1:12 AM EDT us Mariah Mcgowan MD LAB BLOOD ORDERABLES Final Result Performing Organization Address City/[facility]/[place] [address] * Ionized calcium, serum (03/13/2025 12:57 AM EDT) Ionized Calcium, Serum 4.9 4.6 - 5.3 mg/dL LAB HEMATOLOGY METHOD 03/13/2025 1:45 AM EDT [facility] Blood Venous blood specimen / Unknown Venipuncture / Unknown 03/13/2025 12:57 AM EDT 03/13/2025 1:12 AM EDT us Mariah Mcgowan MD LAB BLOOD ORDERABLES Final Result [facility] [address] [place] [address] * (ABNORMAL) CBC W/O Differential (03/13/2025 12:57 AM EDT) WBC Count 8.81 3.70 - 10.30 10*3/uL LAB HEMATOLOGY METHOD 03/13/2025 1:27 AM EDT [facility] RBC Count 4.33(L) 4.60 - 6.10 10*6/uL LAB HEMATOLOGY METHOD 03/13/2025 1:27 AM EDT [facility] HGB 12.0(L) 13.7 - 17.5 g/dL LAB HEMATOLOGY METHOD 03/13/2025 1:27 AM EDT [facility] HCT 37.6(L) 40.0 - 51.0 % LAB HEMATOLOGY METHOD 03/13/2025 1:27 AM EDT [facility] Platelet Count 175 155 - 369 10*3/uL LAB HEMATOLOGY METHOD 03/13/2025 1:27 AM EDT [facility] MCV 87 79 - 98 fL LAB HEMATOLOGY METHOD 03/13/2025 1:27 AM EDT [facility] MCH 27.7 26.0 - 32.0 pg LAB HEMATOLOGY METHOD 03/13/2025 1:27 AM EDT [facility] MCHC 31.9 30.7 - 35.5 g/dL LAB HEMATOLOGY METHOD 03/13/2025 1:27 AM EDT [facility] RDW 16.9(H) 11.5 - 14.5 % LAB HEMATOLOGY METHOD 03/13/2025 1:27 AM EDT [facility] MPV 9.4 8.8 - 12.5 fL LAB HEMATOLOGY METHOD 03/13/2025 1:27 AM EDT [facility] nRBC 0.0 <=0.0 per 100 WBCs LAB HEMATOLOGY METHOD 03/13/2025 1:27 AM EDT [facility] Blood Venous blood specimen / Unknown Venipuncture / Unknown 03/13/2025 12:57 AM EDT 03/13/2025 1:15 AM EDT Mariah Mcgowan MD LAB BLOOD ORDERABLES Final Result [facility] [address] [place] [address] * Urinalysis Microscopic Examination (03/12/2025 11:05 PM EDT) Urine Urine specimen obtained by clean catch procedure / Unknown Non-blood Collection / Unknown 03/12/2025 11:05 PM EDT 03/12/2025 11:11 PM EDT Mariah Mcgowan MD LAB URINE ORDERABLES Final Result [facility] [address] [place] [address] * (ABNORMAL) Opiates Confirm Urine (03/12/2025 11:05 PM EDT) Codeine <50 <50 ng/mL 03/15/2025 5:06 PM EDT [facility] Codeine Glucuronide <50 <50 ng/mL 03/15/2025 5:06 PM EDT [facility] Desmethyl Tramadol <50 <50 ng/mL 03/15/2025 5:06 PM EDT [facility] EDDP - Methadone Metabolite <50 <50 ng/mL 03/15/2025 5:06 PM EDT [facility] Hydrocodone 460(H) <50 ng/mL 03/15/2025 5:06 PM EDT [facility] Hydromorphone 177(H) <50 ng/mL 03/15/2025 5:06 PM EDT [facility] Hydromorphone Glucuronide >1,000(H) <50 ng/mL 03/15/2025 5:06 PM EDT [facility] Comment:Metabolite of Hydrom orphone Meperidine <50 <50 ng/mL 03/15/2025 5:06 PM EDT [facility] Methadone <50 <50 ng/mL 03/15/2025 5:06 PM EDT [facility] 6 Monoacetyl morphine <10 <10 ng/mL 03/15/2025 5:06 PM EDT [facility] Morphine <50 <50 ng/mL 03/15/2025 5:06 PM EDT [facility] Morphine Glucuronide <50 <50 ng/mL 03/15/2025 5:06 PM EDT [facility] Comment:Metabolite of Morphi ne Naloxone <50 <50 ng/mL 03/15/2025 5:06 PM EDT [facility] Naloxone Glucuronide <50 <50 ng/mL 03/15/2025 5:06 PM EDT [facility] Comment:Metabolite of Naloxo ne Normeperidine <50 <50 ng/mL 03/15/2025 5:06 PM EDT [facility] Tramadol <50 <50 ng/mL 03/15/2025 5:06 PM EDT [facility] Urine Urine specimen obtained by clean catch procedure / Unknown Non-blood Collection / Unknown 03/12/2025 11:05 PM EDT 03/12/2025 11:11 PM EDT Narrative [facility] - 03/15/2025 5:06 PM EDT Drug analysis is confirmed by LC-MS/MS (LC Tandem Mass Spectrometry) on Urine specimens. This test was developed and its performance characteristics determined by [facility]. It has not been cleared or approved by the FDA. The laboratory is regulated under CLIA as qualified to perform high-complexity testing. This test is used for clinical purposes. Testing is performed at the [facility]. Mariah Mcgowan MD LAB URINE ORDERABLES Final Result [facility] [address] [place] [address] * (ABNORMAL) Fentanyl Urine Confirm (03/12/2025 11:05 PM EDT) Fentanyl 3(H) <1 ng/mL 03/15/2025 5:06 PM EDT [facility] Norfentanyl 5(H) <2 ng/mL 03/15/2025 5:06 PM EDT [facility] Urine Urine specimen obtained by clean catch procedure / Unknown Non-blood Collection / Unknown 03/12/2025 11:05 PM EDT 03/12/2025 11:11 PM EDT Narrative [facility] - 03/15/2025 5:06 PM EDT Drug analysis is confirmed by LC-MS/MS (LC Tandem Mass Spectrometry) on Urine specimens. This test was developed and its performance characteristics determined by [facility]. It has not been cleared or approved by the FDA. The laboratory is regulated under CLIA as qualified to perform high-complexity testing. This test is used for clinical purposes. Testing is performed at the [facility]. Mariah Mcgowan MD LAB URINE ORDERABLES Final Result [facility] [address] [place] [address] * (ABNORMAL) Urinalysis with reflex microscopic (Culture NOT Included) (03/12/2025 11:05 PM EDT) Color, Urine Yellow LAB URINALYSIS - AUTOMATED METHOD 03/13/2025 12:17 AM EDT [facility] Clarity, Urine Clear LAB URINALYSIS - AUTOMATED METHOD 03/13/2025 12:17 AM EDT [facility] Spec [place], Urine >1.030(H) 1.005 - 1.030 LAB URINALYSIS - AUTOMATED METHOD 03/13/2025 12:17 AM EDT [facility] pH, Urine 7.0 5.0 - 8.0 LAB URINALYSIS - AUTOMATED METHOD 03/13/2025 12:17 AM EDT [facility] Protein, Urine 30(A) Negative mg/dL LAB URINALYSIS - AUTOMATED METHOD 03/13/2025 12:17 AM EDT [facility] Glucose, Urine 100(A) Negative mg/dL LAB URINALYSIS - AUTOMATED METHOD 03/13/2025 12:17 AM EDT [facility] Ketones, Urine Negative Negative mg/dL LAB URINALYSIS - AUTOMATED METHOD 03/13/2025 12:17 AM EDT [facility] Blood, Urine Large(A) Negative LAB URINALYSIS - AUTOMATED METHOD 03/13/2025 12:17 AM EDT [facility] Bilirubin, Urine Negative Negative LAB URINALYSIS - AUTOMATED METHOD 03/13/2025 12:17 AM EDT [facility] Urobilinogen, Urine 0.2 0.2 to 1.0 mg/dL LAB URINALYSIS - AUTOMATED METHOD 03/13/2025 12:17 AM EDT [facility] Leukocytes, Urine Moderate(A) Negative LAB URINALYSIS - AUTOMATED METHOD 03/13/2025 12:17 AM EDT [facility] Nitrite, Urine Negative Negative LAB URINALYSIS - AUTOMATED METHOD 03/13/2025 12:17 AM EDT [facility] RBC, Urine >50(A) 0 to 3 /HPF LAB URINALYSIS - AUTOMATED METHOD 03/13/2025 12:17 AM EDT [facility] WBC, Urine >50(A) 0 to 5 /HPF LAB URINALYSIS - AUTOMATED METHOD 03/13/2025 12:17 AM EDT [facility] Squamous Epithelial Cells 0 - 2 0 to 5 /HPF LAB URINALYSIS - AUTOMATED METHOD 03/13/2025 12:17 AM EDT [facility] Hyaline Casts 0 - 2 0 to 5 /LPF LAB URINALYSIS - AUTOMATED METHOD 03/13/2025 12:17 AM EDT [facility] Bacteria, Urine Negative Negative LAB URINALYSIS - AUTOMATED METHOD 03/13/2025 12:17 AM EDT [facility] Urine Urine specimen obtained by clean catch procedure / Unknown Non-blood Collection / Unknown 03/12/2025 11:05 PM EDT 03/12/2025 11:11 PM EDT Mariah Mcgowan MD LAB URINE ORDERABLES Final Result [facility] [address] [place] [address] * Drug Abuse Screen Urine (03/12/2025 11:05 PM EDT) Amphetamine Screen Urine Negative Cutoff: 500 ng/mL 03/12/2025 11:44 PM EDT [facility] Benzodiazepines Screen Urine Negative Cutoff: 200 ng/mL 03/12/2025 11:44 PM EDT [facility] Cannabinoid Screen Urine Negative Cutoff: 50 ng/mL 03/12/2025 11:44 PM EDT [facility] Cocaine Screen Urine Negative Cutoff: 300 ng/mL 03/12/2025 11:44 PM EDT [facility] Barbiturate Screen Urine Negative Cutoff: 200 ng/mL 03/12/2025 11:44 PM EDT [facility] Opiate Screen Urine Presumptive positive. Confirmation by LC-MS/MS to follow. Cutoff: 300 ng/mL 03/12/2025 11:44 PM EDT [facility] Methadone Screen Urine Negative Cutoff: 300 ng/mL 03/12/2025 11:44 PM EDT [facility] Buprenorphine Screen Urine Negative Cutoff: 10 ng/mL 03/12/2025 11:44 PM EDT [facility] Fentanyl Screen Urine Presumptive positive. Confirmation by LC-MS/MS to follow. Cutoff: 1 ng/mL 03/12/2025 11:44 PM EDT [facility] Oxycodone Screen Urine Negative Cutoff: 100 ng/mL 03/12/2025 11:44 PM EDT [facility] Urine Urine specimen obtained by clean catch procedure / Unknown Non-blood Collection / Unknown 03/12/2025 11:05 PM EDT 03/12/2025 11:11 PM EDT Mariah Mcgowan MD LAB URINE ORDERABLES Final Result [facility] [address] [place] [address] * Multi Drug Resistance Test (03/12/2025 10:18 PM EDT) Culture No growth at day 1 03/14/2025 8:08 AM EDT [facility] Swab (Nares and Jazmyn Rectal) Non-blood Collection / Unknown 03/12/2025 10:18 PM EDT 03/12/2025 10:22 PM EDT Narrative [facility] - 03/14/2025 8:08 AM EDT This test was developed and its performance characteristics determined by the [facility]. Although the media is FDA-approved, it is not FDA-approved for all specimen types submitted. The FDA has determined that such clearance or approval is not necessary. This test is used for surveillance purposes. It should not be regarded as investigational or for research. The [facility] is certified under the Clinical Laboratory Improvement Amendments of 1988 (CLIA-88) as qualified to perform high complexity clinical laboratory testing. Mariah Mcgowan MD LAB MICROBIOLOGY - GENERAL ORDERABLES Final Result [facility] [address] [place] [address] * Cathy auris Surveillance by PCR (03/12/2025 10:18 PM EDT) Cathy auris PCR Result Not Detected Not Detected 03/14/2025 6:39 AM EDT [facility] Swab (Axilla and Groin) Non-blood Collection / Unknown 03/12/2025 10:18 PM EDT 03/12/2025 10:22 PM EDT Narrative [facility] - 03/14/2025 6:39 AM EDT This PCR assay was developed and its performance characteristics determined by [facility] as appropriate for clinical purposes. This assay has not been cleared or approved by the FDA, but is performed in a CLIA regulated laboratory that is qualified to perform high-complexity testing. Mariah Mcgowan MD LAB MICROBIOLOGY - GENERAL ORDERABLES Final Result Performing Organization Address City/[facility]/[place] [address] * (ABNORMAL) Potassium (03/12/2025 10:17 PM EDT) Potassium, Plasma 6.3(H) 3.6 - 4.9 mmol/L 03/12/2025 10:44 PM EDT [facility] Blood Venous blood specimen / Unknown Venipuncture / Unknown 03/12/2025 10:17 PM EDT 03/12/2025 10:22 PM EDT Mariah Mcgowan MD LAB BLOOD ORDERABLES Final Result [facility] [address] [place] [address] * (ABNORMAL) Troponin T, High Sensitivity, 2 Hour, Plasma (03/12/2025 10:17 PM EDT) [facility] Troponin T, High Sensitivity, 2 Hour 28(H) <19 ng/L 03/12/2025 10:50 PM EDT [facility] Troponin Delta Interpretation Not Calculated 03/12/2025 10:50 PM EDT [facility] Comment:Specimen not collect ed within acceptable timeframe. Delta will not be calculated. Blood Venous blood specimen / Unknown Venipuncture / Unknown 03/12/2025 10:17 PM EDT 03/12/2025 10:22 PM EDT us Staci Castro LAB BLOOD ORDERABLES Final Resul t Performing Organization Address City/[facility]/ZIP Co de Phone Number [facility] [address] [place] [address] * (ABNORMAL) POCT glucose meter (03/12/2025 10:14 PM EDT) [facility] POCT Glucose 137(H) 74 - 99 mg/dL 03/12/2025 10:16 PM EDT [facility] Comment:Accuracy of a [...] Comment 03/12/2025 10:16 PM EDT [facility] Stamp Pad Maker ID Heraclio Zamorano 03/12/2025 10:16 PM EDT [facility] Device ID [id number] 03/12/2025 10:16 PM EDT [facility] Specimen Type POC Capillary 03/12/2025 10:16 PM EDT [facility] Blood Capillary blood specimen / Unknown 03/12/2025 10:14 PM EDT 03/12/2025 10:16 PM EDT us Mariah Mcgowan MD LAB POINT OF CARE TEST DOCKED DEVICE UNSOLICITED RESULTS Final Result Performing Organization Address City/[facility]/ZIP Co de Phone Number [facility] [address] [place] [address] * XR Abdomen 1 View (03/12/2025 9:21 [...] of the abdomen. COMPARISON: None. FINDINGS: Limited [id number] abdominal radiograph for the purpose of locating tube position. The tip of the nasogastric tube is within the proximal stomach. Procedure Note Libra Balbuena MD - 03/12/2025 CLINICAL INDICATION: Orogastric tube TECHNIQUE: Supine radiograph of the abdomen. COMPARISON: None. FINDINGS: Limited [id number] abdominal radiograph for the purpose of locatingtube position. The tip of the nasogastric tube is within the proximal stomach. IMPRESSION: The tip of the nasogastric tube is within the proximal stomach. CRITICAL RESULT: No. COMMUNICATION: Per this written report. Drafted by Libra Balbuena MD on 03/12/2025 9:27 PM Final report signed by Libra Balbuena MD on 03/12/2025 9:28 PM Staci Castro IMG XR PROCEDURES Final Result [...] Libra Balbuena MD on 03/12/2025 9:30 PM Staci Castro IMG XR PROCEDURES Final Result * Blood Culture (Aerobic/Anaerobet Set) (03/12/2025 9:12 PM EDT) Pathologist [facility] Culture No growth at day 5 03/17/2025 10:01 PM EDT [facility] Blood Structure of left forearm / Unknown Venipuncture / Unknown 03/12/2025 9:12 PM EDT 03/12/2025 9:55 PM EDT Narrative [facility] - 03/17/2025 10:01 PM EDT Low blood volume submitted, results may be compromised us Staci Castro LAB MICROBIOLOGY - GENERAL ORDER ALLEN Final Result [facility] [address] [place] [address] * Methemoglobin (03/12/2025 9:07 PM EDT) Methemoglobin 0.6 0.0 - 1.5 % LAB HEMATOLOGY METHOD 03/12/2025 9:18 PM EDT [facility] Blood Venous blood specimen / Unknown Venipuncture / Unknown 03/12/2025 9:07 PM EDT 03/12/2025 9:17 PM EDT Result Colton Castro LAB BLOOD ORDERABLES Final Resul t Performing Organization Address City/[facility]/ZIP Co de Phone Number [facility] [address] [place] [address] * Blood Culture (Aerobic/Anaerobet Set) (03/12/2025 9:07 PM EDT) Culture No growth at day 5 03/17/2025 10:01 PM EDT [facility] Blood Structure of right wrist region / Unknown Venipuncture / Unknown 03/12/2025 9:07 PM EDT 03/12/2025 9:23 PM EDT Narrative [facility] - 03/17/2025 10:01 PM EDT Low blood volume submitted, results may be compromised Result Colton Castro LAB MICROBIOLOGY - GENERAL ORDER ALLEN Final Result Performing Organization Address [facility]/ZIP Co de Phone Number [facility] [address] [place] [address] * Streptococcus pneumoniae and Legionella Urinary Antigen (03/12/2025 9:00 PM EDT) Legionella pneumophila serogroup 1 Antigen Result (Urine) Negative Negative 03/12/2025 9:44 PM EDT [facility] Streptococcus pneumoniae Antigen Result (Urine) Negative Negative 03/12/2025 9:44 PM EDT [facility] Urine Urine specimen obtained by clean catch procedure / Unknown Non-blood Collection / Unknown 03/12/2025 9:00 PM EDT 03/12/2025 9:19 PM EDT Result Colton Castro LAB MICROBIOLOGY - GENERAL ORDER ALLEN Final Result Performing Organization Address City/[facility]/ZIP Co de Phone Number [facility] [address] [place] [address] * (ABNORMAL) POCT arterial blood gas gem (03/12/2025 8:57 PM EDT) pH, Arterial 7.34 7.31 - 7.42 03/12/2025 8:59 PM EDT [facility] pCO2, Arterial 53(H) 32 - 45 mm Hg 03/12/2025 8:59 PM EDT [facility] pO2, Arterial 75 >70 mm Hg 03/12/2025 8:59 PM EDT [facility] SO2, Arterial 98 94 - 98 % 03/12/2025 8:59 PM EDT [facility] FIO2 100.0 % 03/12/2025 8:59 PM EDT [facility] Base Excess, Arterial 1.9 -2 - 3 mmol/L 03/12/2025 8:59 PM EDT [facility] HCO3, Arterial 28.6(H) 22 - 26 mmol/L 03/12/2025 8:59 PM EDT [facility] Total Hemoglobin, Arterial, Whole Blood 11.8(L) 13.7 - 17.5 g/dL 03/12/2025 8:59 PM EDT [facility] Hematocrit, Arterial 35.0(L) 40 - 51.0 % 03/12/2025 8:59 PM EDT [facility] Sodium, Arterial 132(L) 136 - 145 mmol/L 03/12/2025 8:59 PM EDT [facility] Potassium, Arterial 6.2(H) 3.6 - 4.9 mmol/L 03/12/2025 8:59 PM EDT [facility] Comment:Hemolyzed, result ma y be falsely increased. Chloride, Whole Blood 101 97 - 107 mmol/L 03/12/2025 8:59 PM EDT [facility] Glucose, Arterial 121(H) 74 - 99 mg/dL 03/12/2025 8:59 PM EDT [facility] Ionized Calcium, Arterial 4.6 4.6 - 5.1 mg/dL 03/12/2025 8:59 PM EDT [facility] Lactate, Arterial 0.7 0.5 - 1.6 mmol/L 03/12/2025 8:59 PM EDT [facility] Body Temperature 37.2 Celsius 03/12/2025 8:59 PM EDT [facility] pH, Temp Corrected, Arterial 7.34 7.31 - 7.42 03/12/2025 8:59 PM EDT [facility] pCO2, Temp Corrected, Arterial 53(H) 32 - 45 mm Hg 03/12/2025 8:59 PM EDT [facility] pO2, Temp Corrected, Arterial 76 >70 mm Hg 03/12/2025 8:59 PM EDT [facility] Stamp Pad Maker ID Dwayne Bose 03/12/2025 8:59 PM EDT [facility] Blood, Arterial Whole blood specimen / Unknown 03/12/2025 8:57 PM EDT 03/12/2025 8:59 PM EDT Staci WALEKR POINT OF CARE TE ST DOCKED DEVICE UNSOLICITED RESULTS Final Result [facility] [address] [place] [address] * SARS CoV-2/COVID-19 by PCR - Rapid (03/12/2025 8:53 PM EDT) Pathologist [facility] SARS CoV-2/COVID-1 9 RNA PCR Result Not Detected Not Detected 03/12/2025 10:09 PM EDT [facility] Swab Nasopharyngeal structure / Unknown Non-blood Collection / Unknown 03/12/2025 8:53 PM EDT 03/12/2025 9:20 PM EDT Narrative [facility] - 03/12/2025 10:09 PM EDT This [...] and symptoms consistent with COVID-19. us Staci WALKER MICROBIOLOGY - GENERAL ORDER ALLEN Final Result Performing Organization Address City/[facility]/ZIP Co de Phone Number [facility] [address] [place] [address] * Nasopharyngeal Respiratory Panel (03/12/2025 8:53 PM EDT) Pathologist [facility] Nasopharyngeal Respiratory PCR Interpretation Not Detected for all analytes Not Detected for all analytes 03/13/2025 1:10 AM EDT [facility] Swab Nasopharyngeal structure / Unknown Non-blood Collection / Unknown 03/12/2025 8:53 PM EDT 03/12/2025 9:20 PM EDT Narrative [facility] - 03/13/2025 1:10 AM EDT This [...] Respiratory PCR Panel is performed using the [employer] e[employer] instrument. This test is FDA approved for use with Nasopharyngeal swabs only. This test is used for clinical purposes. It should not be regarded as investigational or for research. The [facility] is certified under the Clinical Laboratory Improvement Amendments of 1988 (CLIA-88) as qualified to perform high complexity clinical laboratory testing. Staci Castro LAB MICROBIOLOGY - GENERAL ORDER ALLEN Final Result Performing Organization Address City/[facility]/ZIP Co de Phone Number [facility] [address] [place] [address] * Methicillin Resistant Staphylococcus aureus (MRSA) by PCR (03/12/2025 8:53 PM EDT) Pathologist [facility] Methicillin Resistant Staphylococcus aureus (MRSA) by PCR Not Detected Not Detected 03/12/2025 10:41 PM EDT [facility] Swab Both anterior nares / Unknown Non-blood Collection / Unknown 03/12/2025 8:53 PM EDT 03/12/2025 9:20 PM EDT Narrative [facility] - 03/12/2025 10:41 PM EDT This [...] ORDER ALLEN Final Result Performing Organization Address City/[facility]/ZIP Co de Phone Number [facility] [address] [place] [address] * EKG now - STAT (adult) (03/12/2025 8:49 PM EDT) EKG DIAGNOSIS CLASS Abnormal MUSE ECG Ventricular Rate 62 BPM MUSE ECG Atrial Rate 62 BPM MUSE ECG MI Interval 168 ms MUSE ECG QRSD Interval 128 ms MUSE ECG QT Interval 416 ms MUSE ECG QTC Interval 422 ms MUSE ECG P [place] 64 degrees MUSE ECG R [place] 81 degrees MUSE ECG T Wave [place] 81 degrees MUSE ECG Diagnosis Normal sinus rhythm MUSE ECG Diagnosis Right bundle branch block MUSE ECG Diagnosis Abnormal ECG MUSE ECG Diagnosis MUSE ECG Diagnosis Confirmed by Chino Witt ([id number]) on 03/13/2025 8:51:16 PM MUSE ECG 03/12/2025 8:49 PM EDT 03/13/2025 8:51 PM EDT us Staci Castro ECG ORDERABLES Final Result Performing Organization Address City/[facility]/ZIP Co de Phone Number MUSE ECG * (ABNORMAL) C-reactive protein (03/12/2025 8:48 PM EDT) CRP, Plasma 10.6(H) <=8.0 mg/L 03/12/2025 10:27 PM EDT [facility] Blood Venous blood specimen / Unknown Venipuncture / Unknown 03/12/2025 8:48 PM EDT 03/12/2025 8:59 PM EDT Narrative [facility] - 03/12/2025 10:27 PM EDT This CRP test is appropriate for assessment of infection, systemic inflammation and/or tissue injury. To assess cardiovascular disease risk order high sensitivity CRP (CRPH). us Mariah Mcgowan MD LAB BLOOD ORDERABLES Final Result Performing Organization Address City/[facility]/ZIP Co de Phone Number [facility] [address] [place] [address] * TSH Reflex FT4 (03/12/2025 8:48 PM EDT) Thyroid Stimulating Hormone, Plasma 2.54 0.40 - 4.20 uIU/mL 03/12/2025 10:27 PM EDT [facility] Blood Venous blood specimen / Unknown Venipuncture / Unknown 03/12/2025 8:48 PM EDT 03/12/2025 8:59 PM EDT us Mariah Mcgowan MD LAB BLOOD ORDERABLES Final Result Performing Organization Address City/[facility]/ZIP Co de Phone Number [facility] [address] [place] [address] * Light Green Top (03/12/2025 8:48 PM EDT) Extra Hold for add-ons 03/13/2025 12:01 AM EDT [facility] Comment:Auto resulted. Blood Venous blood specimen / Unknown 03/12/2025 8:48 PM EDT 03/12/2025 9:20 PM EDT Result [facility] us Mariah Mcgowan MD LAB BLOOD ORDERABLES Final Result Performing Organization Address City/[facility]/ZIP Co de Phone Number [facility] [address] [place] [address] * Light Blue Top (03/12/2025 8:48 PM EDT) Extra Hold for add-ons 03/13/2025 12:01 AM EDT [facility] Comment:Auto resulted. Blood Venous blood specimen / Unknown 03/12/2025 8:48 PM EDT 03/12/2025 9:20 PM EDT us Mariah Mcgowan MD LAB BLOOD ORDERABLES Final Result Performing Organization Address City/[facility]/ZIP Co de Phone Number [facility] [address] [place] [address] * ED HIV 1/2 Antibody/Antigen Screen w/Reflex to HIV 1/2 Differentiation (03/12/2025 8:48 PM EDT) Pathologist [facility] HIV 1 & 2 Antibody/Antigen Screen Non Reactive Non Reactive 03/12/2025 9:37 PM EDT [facility] Comment:Screening for HIV 1 & 2 antibodies, and P24 antigen is NONREACTIVE. No confirmatory testing is required. Blood Venous blood specimen / Unknown Venipuncture / Unknown 03/12/2025 8:48 PM EDT 03/12/2025 9:00 PM EDT Result Colton Castro LAB BLOOD ORDERABLES Final Resul t Performing Organization Address City/[facility]/ZIP Co de Phone Number [facility] [address] [place] [address] * Hepatitis C Antibody - ED (03/12/2025 8:48 PM EDT) [facility] Hepatitis C Antibody Negative Negative 03/12/2025 9:38 PM EDT [facility] Blood Venous blood specimen / Unknown Venipuncture / Unknown 03/12/2025 8:48 PM EDT 03/12/2025 8:59 PM EDT Result Colton Castro LAB BLOOD ORDERABLES Final Resul t Performing Organization Address City/[facility]/ZIP Co de Phone Number [facility] [address] [place] [address] * (ABNORMAL) Procalcitonin (03/12/2025 8:48 PM EDT) [facility] Procalcitonin, Plasma 0.11(H) <0.09 ng/mL 03/12/2025 9:37 PM EDT [facility] Blood Venous blood specimen / Unknown Venipuncture / Unknown 03/12/2025 8:48 PM EDT 03/12/2025 8:59 PM EDT Narrative [facility] - 03/12/2025 9:37 PM EDT Procalcitonin [...] predict 28 day mortality risk. Please consult [email or web address] for more information. Test performed at [facility]. us Staci Castro LAB BLOOD ORDERABLES Final Resul t Performing Organization Address City/[facility]/ZIP Co de Phone Number [facility] [address] [place] [address] * (ABNORMAL) Troponin now and 120 min (03/12/2025 8:48 PM EDT) Troponin T, High Sensitivity, 0 Hour 32(H) <19 ng/L 03/12/2025 9:37 PM EDT [facility] Blood Venous blood specimen / Unknown Venipuncture / Unknown 03/12/2025 8:48 PM EDT 03/12/2025 8:59 PM EDT us Staci Castro LAB BLOOD ORDERABLES Final Resul t Performing Organization Address City/[facility]/ZIP Co de Phone Number [facility] [address] [place] [address] * (ABNORMAL) Magnesium (03/12/2025 8:48 PM EDT) Magnesium, Plasma 1.7(L) 1.9 - 2.4 mg/dL 03/12/2025 9:37 PM EDT [facility] Blood Venous blood specimen / Unknown Venipuncture / Unknown 03/12/2025 8:48 PM EDT 03/12/2025 8:59 PM EDT us Staci Castro LAB BLOOD ORDERABLES Final Resul t [facility] [address] [place] [address] * (ABNORMAL) CMP (03/12/2025 8:48 PM EDT) Glucose, Plasma 114(H) 74 - 99 mg/dL 03/12/2025 9:37 PM EDT [facility] BUN, Plasma 30(H) 8 - 23 mg/dL 03/12/2025 9:37 PM EDT [facility] Creatinine, Plasma 2.08(H) 0.70 - 1.20 mg/dL 03/12/2025 9:37 PM EDT [facility] BUN/Creatinine Ratio 14 03/12/2025 9:37 PM EDT [facility] Sodium, Plasma 135(L) 136 - 145 mmol/L 03/12/2025 9:37 PM EDT [facility] Potassium, Plasma 6.1(H) 3.6 - 4.9 mmol/L 03/12/2025 9:37 PM EDT [facility] Chloride, Plasma 99 97 - 107 mmol/L 03/12/2025 9:37 PM EDT [facility] CO2, Plasma 27 22 - 29 mmol/L 03/12/2025 9:37 PM EDT [facility] Anion Gap 9 6 - 16 mmol/L 03/12/2025 9:37 PM EDT [facility] Total Calcium, Plasma 8.6(L) 8.9 - 10.2 mg/dL 03/12/2025 9:37 PM EDT [facility] Total Protein 6.8 6.3 - 7.9 g/dL 03/12/2025 9:37 PM EDT [facility] Albumin, Plasma 4.1 3.5 - 5.2 g/dL 03/12/2025 9:37 PM EDT [facility] AST, Plasma 17 10 - 50 U/L 03/12/2025 9:37 PM EDT [facility] ALT, Plasma 12 10 - 50 U/L 03/12/2025 9:37 PM EDT [facility] Alkaline Phosphatase, Plasma 83 40 - 115 U/L 03/12/2025 9:37 PM EDT [facility] Total Bilirubin, Plasma 0.6 0.2 - 1.1 mg/dL 03/12/2025 9:37 PM EDT [facility] eGFRcr 33.2 mL/min/1.7 3m*2 03/12/2025 9:37 PM EDT [facility] Comment:Reported eGFRcr in m L/min/1.73m2 is based the CKD-EPI 2020 equation that does not use a race coefficient. Blood Venous blood specimen / Unknown Venipuncture / Unknown 03/12/2025 8:48 PM EDT 03/12/2025 8:59 PM EDT us Staci Castro LAB BLOOD ORDERABLES Final Resul t [facility] [address] [place] [address] * (ABNORMAL) PT-INR (03/12/2025 8:48 PM EDT) Prothrombin Time 14.6(H) 12.0 - 14.3 sec 03/12/2025 9:06 PM EDT [facility] INR 1.2(H) 0.9 - 1.1 03/12/2025 9:06 PM EDT [facility] Blood Venous blood specimen / Unknown Venipuncture / Unknown 03/12/2025 8:48 PM EDT 03/12/2025 8:53 PM EDT Narrative [facility] - 03/12/2025 9:06 PM EDT OPTIMAL INR RANGES FOR PATIENT ON ORAL ANTICOAGULANT THERAPY Prevention of venous thromboembolism INR 2.0 to 3.0 In patients with heart disease: Atrial fibrillation INR 2.0 to 3.0 Valvular heart disease INR 2.0 to 3.0 Tissue heart valves INR 2.0 to 3.0 Mechanical prosthetic valves INR 2.5 to 3.5 Prevention of recurrent CO INR 2.5 to 3.5 us Staci Castro LAB BLOOD ORDERABLES Final Resul t [facility] [address] [place] [address] * (ABNORMAL) CBC w/diff (03/12/2025 8:48 PM EDT) WBC Count 9.02 3.70 - 10.30 10*3/uL LAB HEMATOLOGY METHOD 03/12/2025 8:56 PM EDT [facility] RBC Count 4.48(L) 4.60 - 6.10 10*6/uL LAB HEMATOLOGY METHOD 03/12/2025 8:56 PM EDT [facility] HGB 12.3(L) 13.7 - 17.5 g/dL LAB HEMATOLOGY METHOD 03/12/2025 8:56 PM EDT [facility] HCT 39.2(L) 40.0 - 51.0 % LAB HEMATOLOGY METHOD 03/12/2025 8:56 PM EDT [facility] Platelet Count 196 155 - 369 10*3/uL LAB HEMATOLOGY METHOD 03/12/2025 8:56 PM EDT [facility] MCV 88 79 - 98 fL LAB HEMATOLOGY METHOD 03/12/2025 8:56 PM EDT [facility] MCH 27.5 26.0 - 32.0 pg LAB HEMATOLOGY METHOD 03/12/2025 8:56 PM EDT [facility] MCHC 31.4 30.7 - 35.5 g/dL LAB HEMATOLOGY METHOD 03/12/2025 8:56 PM EDT [facility] RDW 16.8(H) 11.5 - 14.5 % LAB HEMATOLOGY METHOD 03/12/2025 8:56 PM EDT [facility] MPV 9.4 8.8 - 12.5 fL LAB HEMATOLOGY METHOD 03/12/2025 8:56 PM EDT [facility] nRBC 0.0 <=0.0 per 100 WBCs LAB HEMATOLOGY METHOD 03/12/2025 8:56 PM EDT [facility] Differential Type Automated LAB HEMATOLOGY METHOD 03/12/2025 8:56 PM EDT [facility] Neutrophils % 87 % LAB HEMATOLOGY METHOD 03/12/2025 8:56 PM EDT [facility] Lymphocytes % 11 % LAB HEMATOLOGY METHOD 03/12/2025 8:56 PM EDT [facility] Monocytes % 2 % LAB HEMATOLOGY METHOD 03/12/2025 8:56 PM EDT [facility] Eosinophils % 0 % LAB HEMATOLOGY METHOD 03/12/2025 8:56 PM EDT [facility] Basophils % 0 % LAB HEMATOLOGY METHOD 03/12/2025 8:56 PM EDT [facility] Immature Granulocytes % 0 % LAB HEMATOLOGY METHOD 03/12/2025 8:56 PM EDT [facility] Neutrophils Absolute 7.72(H) 1.60 - 6.10 10*3/uL LAB HEMATOLOGY METHOD 03/12/2025 8:56 PM EDT [facility] Lymphocytes Absolute 1.01(L) 1.20 - 3.90 10*3/uL LAB HEMATOLOGY METHOD 03/12/2025 8:56 PM EDT [facility] Monocytes Absolute 0.22(L) 0.30 - 0.90 10*3/uL LAB HEMATOLOGY METHOD 03/12/2025 8:56 PM EDT [facility] Eosinophils Absolute 0.03 0.00 - 0.50 10*3/uL LAB HEMATOLOGY METHOD 03/12/2025 8:56 PM EDT [facility] Basophils Absolute 0.02 0.00 - 0.10 10*3/uL LAB HEMATOLOGY METHOD 03/12/2025 8:56 PM EDT [facility] Immature Granulocytes Absolute 0.02 0.00 - 0.06 10*3/uL LAB HEMATOLOGY METHOD 03/12/2025 8:56 PM EDT [facility] Blood Venous blood specimen / Unknown Venipuncture / Unknown 03/12/2025 8:48 PM EDT 03/12/2025 8:53 PM EDT [facility] - 03/12/2025 8:56 PM EDT Therapeutic decision making should be based on absolute values, rather than percentages. us Staci Castro LAB BLOOD ORDERABLES Final Resul t [facility] [address] [place] [address] * MI CRITICAL CARE, ADDL 30 MIN (03/12/2025 8:41 [...] 7.32 - 7.43 03/12/2025 8:42 PM EDT [facility] pCO2, Venous 57(H) 40 - 55 mm Hg 03/12/2025 8:42 PM EDT [facility] pO2, Venous 46(H) 25 - 40 mm Hg 03/12/2025 8:42 PM EDT [facility] SO2, Venous 82(H) 65 - 80 % 03/12/2025 8:42 PM EDT [facility] Base Excess/Deficit, Venous 3.7(H) -2 - 3 mmol/L 03/12/2025 8:42 PM EDT [facility] HCO3, Venous 30.8(H) 22 - 26 mmol/L 03/12/2025 8:42 PM EDT [facility] Hemoglobin, Venous 12.3(L) 13.7 - 17.5 g/dL 03/12/2025 8:42 PM EDT [facility] Hematocrit, Venous 37.0(L) 40.0 - 51.0 % 03/12/2025 8:42 PM EDT [facility] Sodium, Venous 132(L) 136 - 145 mmol/L 03/12/2025 8:42 PM EDT [facility] Potassium, Venous 6.4(H) 3.6 - 4.9 mmol/L 03/12/2025 8:42 PM EDT [facility] Comment:Hemolyzed, result ma y be falsely increased. POCT Chloride, Venous 101 97 - 107 mmol/L 03/12/2025 8:42 PM EDT [facility] Glucose, Venous 113(H) 74 - 99 mg/dL 03/12/2025 8:42 PM EDT [facility] Ionized Calcium, Venous 4.6 4.6 - 5.1 mg/dL 03/12/2025 8:42 PM EDT [facility] Lactate, Venous 0.9 0.5 - 2.2 mmol/L 03/12/2025 8:42 PM EDT [facility] Body Temperature 37.0 Celsius 03/12/2025 8:42 PM EDT [facility] pH, Temp Corrected, Venous 7.34 7.32 - 7.43 03/12/2025 8:42 PM EDT [facility] pCO2, Temp Corrected, Venous 57(H) 40 - 55 mm Hg 03/12/2025 8:42 PM EDT [facility] pO2, Temp Corrected, Venous 46(H) 25 - 40 mm Hg 03/12/2025 8:42 PM EDT [facility] Stamp Pad Maker ID Irene Ro 03/12/2025 8:42 PM EDT [facility] Blood, Venous Whole blood specimen / Unknown 03/12/2025 8:41 PM EDT 03/12/2025 8:42 PM EDT us Generic Provider Poct LAB POINT OF CARE TEST DOCKED DEVICE UNSOLICITED RESULTS Final Result [facility] [address] [place] [address] documented in this encounter Visit Diagnoses Diagnosis [...] Intravenous, Every 24 hours, First dose on Fri03/12/25 at 2120, Until Discontinued, STAT New Bag [...] 2 g, Intravenous, Once, 1 dose, On Fri03/12/25 at 2205, STATIndications:Hyperkalemia Given 03/12/2025 10:52 PM [...] times daily, First dose on 03/13/25 at 1115, Until Discontinued Given 03/14/2025 9:41 [...] 5,000 Units L eft Lower Abdomen HYDROcodone-acetaminophen ([place]) 5-325 MG per tablet 10 mg of [...] 5 Units, Intravenous, Once, 1 dose, On [facility] 03/12/25 at 2205, RoutineIndications:Hyperkalemia Given 03/12/2025 10:51 [...] Nebulization, Once, 1 dose, On 03/12/25 at 204, Routine Given 03/12/2025 8:45 PM EDT 9 mL levETIRAcetam (Keppra) 500 MG/5ML injection - Pyxis Override Pull 1 dose, Starting on Fri03/13/25 at 0404, Until Fri03/13/25 at 0617 levETIRAcetam (Keppra) injection 2,000 mg [...] 40 mg, Oral, Daily, First dose on 03/15/25 at 0900, Until Discontinued, Routine Given 03/17/2025 8:34 AM EDT 40 mg Given 03/16/2025 8:06 AM EDT 40 mg Given 03/15/2025 8:13 AM EDT 40 mg pantoprazole (Protonix) injection 40 mg 40 mg, Intravenous, Daily, First dose (after last modification) on 03/12/25 at 2105, Until Discontinued, STAT Given 03/12/2025 9:06 PM EDT 40 mg polyethylene glycol (Miralax) packet 17 g 17 g, Nasogastric, Daily, First dose on 03/13/25 at 0900, Until Discontinued, Routine Given 03/14/2025 8:12 AM EDT 17 g Given 03/13/2025 8:07 AM EDT 17 g polyethylene glycol (Miralax) packet 17 g 17 g, Oral, Daily, First dose (after last modification) on Fri03/15/25 at 0900, Until Discontinued, Routine propofol (Diprivan) infusion 10 mg/mL 10-50 mcg/kg/min 113 kg (6.78-33.9 mL/hr), Intravenous, Titrated, Starting on 03/12/25 at 2045, Until Fri03/14/25 at 1243, Routine [...] on Fri03/16/25 at 0900, Until Discontinued, Routine 0806 (Given - Provider: Shaista Guzman RN) 0834 (Given - Provider: Shaista Guzman RN) aspirin chewable tablet 81 mg 81 mg, Oral, Daily, First dose (after last modification) on Fri03/15/25 at 0900, Until Discontinued, Routine 0807 (Given - Provider: Shellie Casarez RN) 08 (Given - Provider: Shaista Guzman RN) [...] Guzman RN) 0833 (Given - Provider: Shaista Guzman, GABRIEL) gabapentin (Neurontin) capsule 300 mg 300 mg, Oral, 2 times daily, First dose (after last modification) on Fri03/15/25 at 0900, Until Discontinued 08 (Given - Provider: Shellie Casarez RN)2029 (Given - Provider: Casie Street) 08 (Given - Provider: Shaista Guzman RN)215 (Given - Provider: Becka Odom) 0834 (Given - Provider: Shaista Guzman, GABRIEL) heparin (porcine) injection 5,000 Units (CANCELED) 5,000 Units, Subcutaneous, Every 8 hours scheduled, First dose on Fri03/13/25 at 0900, Until Discontinued, Routine 0626 (Given - Provider: Heraclio Gomez RN)1334 (Given - Provider: Shellie Casarez RN)2240 (Given - Provider: Casie Street) 06 (Given - Provider: Ying Patrick RN) insulin [...] Reason: Order parameters not met - Comment: [id number] (Not Given - Provider: Becka Odom - [...] on Fri03/12/25 at 2200, Last dose on Fri03/17/25 at 0900, Routine 0807 (Given - Provider: [...] refused) 0805 (Not Given - Provider: Shaista Guzman, GABRIEL - Reason: Patient/family refused) 0835 (Not Given [...] Alternative - Provider: Heraclio Gomez RN) HYDROcodone-acetaminophen ([place]) 5-325 MG per tablet 10 mg of [...] with Lay Clark DO on 03/15/25 @ 8572, there is no concern for TB. - Grover Waite 03/13/2025 03/13/2025 03/13/2025 11:31 AM EDT Assessment Noted Time A fall risk assessment has been complete d for the patient 04/07/2024 2:13 PM EDT A Body Mass Index follow-up plan has been documented for the patient 03/17/2025 11:22 AM EDT documented as of this encounter Care Teams Service Representative Relationship Specialty Start Date End Date Joycelyn Montes PA [address] [place] [address] PCP - General 04/01/23 documented as of this encounter
[2025-04-28 19:41] LABS: Anion Gap 13.6 mEq/L (5-15); Blood Urea Nitrogen 32 mg/dl (9-20); Calcium 9.4 mg/dl (8.4-10.2); Carbon Dioxide 33 mmol/L (22.0-30.0); Chloride 95 mmol/L (98-107); Creatinine,Serum 2.00 mg/dl (0.66-1.25); Estimated Glomerular Filt Rate 33 ml/min (>60); GFR (African American) 40 ML/MIN (>60); Glucose 125 mg/dl (74-100); Potassium 5.6 mmoL/L (3.5-5.1); Sodium 136 mmol/L (136-145)
--- OUTSIDE RECORDS SUMMARY | 2025-05-02 10:07 | XMS_ITS ---
Author Organization [facility] Address [address] [place] [address] Care Team Providers Care Legal Records Manager Name Role Phone Joycelyn Montes Primary Care Provider [phone] Transitional Care Management Status:Closed (Closed) Start date:03/18/2025 Enrollment date:03/18/2025 Enrollment reason:Identified using hospital discharge data End date:04/17/2025 Close reason:Patient graduated Overview This episode type is for outpatient care managers enrolling patients in the [facility] Transitional Care Management program. Continued Care and Services Coordination
--- OUTSIDE RECORDS SUMMARY | 2025-05-02 10:07 | XMS_ITS | Encounter Summary ---
Author Organization [facility] Address [address] [place] [address] Care Team Providers Care Marriage And Family Social Worker Name Role Phone SimonJoycelyn PANKAJ Primary Care Provider [phone] Brinda Pineda LPN Unavailable Unavailable Reason for Visit * Reason Comments TCM Call Encounter Details Date Type Department Care Team (Late st Contact Info) Description 03/18/2025 Patient Outreach POPULATION [facility] [address], [address] [place] [address] Brinda Pineda LPN [employer] [place] [place] [address] TCM Call Social History Tobacco Use Types [...] and Family Not on file 03/15/2025 Attends Scientologist Services Not on file 03/15 Active Member [...] were you homeless or living in a prison (including now)? No 03/15/2025 Utilities Answer Date [...] He plans to reach out to local Candle Wrapper regarding dosage change of Aspirin. SDOH assessment is up to date, no issue with transportation. No upcoming appointments scheduled at [facility]. Patient does not have an [...] documented as of this encounter Care Teams Marriage And Family Social Worker Relationship Specialty Start Date End Date Joycelyn Montes PA [address] [place] [address] PCP - General 04/01/23 Brinda Pineda LPN [employer] [place] [address] TCM Nurse 03/18/25 04/17/25 documented as of this encounter
--- OUTSIDE RECORDS SUMMARY | 2025-05-02 10:07 | XMS_ITS | Encounter Summary ---
Author Organization [facility] Address [address] [place] [address] Care Team Providers Care Janitorial Cleaner Name Role Phone SimonJoycelyn PANKAJ Primary Care Provider [phone] Brinda Pineda LPN Unavailable Unavailable Reason for Visit * Reason Comments Follow-up Encounter Details Date Type Department Care Team (Late st Contact Info) Description 03/25/2025 Patient Outreach POPULATION [facility] [address] [facility], [address] [place] [address] Brinda Pineda LPN [employer] [place] [address] Follow-up Social History Tobacco Use Types Packs/Day [...] and Family Not on file 03/15/2025 Attends Zoroastrian Services Not on file 03/15 Active Member [...] any time in the past 12 m [facility], were you homeless or living in a [...] documented as of this encounter Care Teams Janitorial Cleaner Relationship Specialty Start Date End Date Joycelyn Montes PA [address] [place] [address] PCP - General 04/01/23 Brinda Pineda LPN [employer] [place] [address] TCM Nurse 03/18/25 04/17/25 documented as of this encounter
--- OUTSIDE RECORDS SUMMARY | 2025-05-02 10:07 | XMS_ITS | Clinical Summary ---
Author Organization [facility] [place] [address] Care Team Providers Care Agricultural Research Technician Name Role Phone SimonJoycelyn PANKAJ Primary Care Provider Allergies Active Allergy Reactions Criticality Noted Date [...] times a day. 4 Active HYDROcodone-tonya taminophen (Watson) 10-325 MG tablet Take 1 tablet by [...] Department Care Team Description 03/25/2025 Patient Outreach [address], [facility] [address] [place] [address] Brinda Pineda LPN Follow-up 03/18/2025 Patient Outreach [address], [facility] [address] [place] [address] Brinda Pineda LPN TCM Call 03/14/2025 Travel 03/13/2025 Travel 03/12/2025 8:41 PM EDT - 03/17/2025 11:49 AM EDT Hospital Encounter [facility] Inpatient [address] [place] [address] The, MD Choco Blanchard, MD Brain Gaytan, MD Yola Mayorga, MD eNto Zapata Muzna, MD Kirk, Bernardo Hensley MD [...] 03/12/2025 Orders Only External Location [address] [place] [address] Provider, External 03/12/2025 Orders Only External Location [address] [place] [address] Provider, External 03/12/2025 Orders Only External Location [address] [place] [address] Provider, External 03/12/2025 Orders Only External Location [address] [place] [id number] Provider, External 03/12/2025 Orders Only External Location [address] [place] [address] Provider, External from Last 3 [...] and Family Not on file 03/15/2025 Attends [employer] Not on file 03/15 Active Member [...] any time in the past 12 m [facility], were you homeless or living in a fci (including now)? No 03/15/2025 Utilities Answer Date Recorded In the past 12 months has e [employer] - [employer] of Fees, gas, oil, or water company threatened to [...] Health Maintenance Due Date Last Done Comments [facility]-Infant/Child/Adol SDOH Screenings 1950 Diabetes: Dental Exam 1962 [...] exists [facility]-Medicare Annual Wellness (AWV) 05/07/2020 05/07/2019 [id number] Vaccine (5 - Pfizer risk season) 2025 07/23/2024, 09/26/2021, 02/14/2021, Additional history exists [facility]-Depression Screening 04/07/2025 04/07/2024 [facility]-Influenza Vaccine (#1) 06/27/202507/23, 08/11/2023, 06/20/2022, Additional history exists [facility]- SDOH Screenings 09/15/2025 [facility]-Adult SDOH Screenings 09/15/2025 03/15/2025 [facility]-Pneumococcal Vaccine: 50+ Years Completed 08/11/2019, 07/27/2017, 07/01/2017 [facility]-Zoster Vaccines Completed 04/10/2024, [facility]-Hepatitis C Screening Completed 03/12/2025, [facility]-Obesity Intervention [...] this topic Medical Devices Implanted Type Area Paper Reel Operator Device Identifier Shelf Expiration Date Model / Serial / Lot Stent Ureteral Double Pigtail Pos 6fr 24cm - Sn/A - [id number] Implanted:Qty: 1 on 04/27/2024 by Malik Dunaway MD at [facility] Stent Right: [id number] 10/09/2025 [id number] / N/A / [id number] Procedures Procedure Name Priority Date/Time Associated Diagnosis [...] UNSOLICITED RESULTS Routine 03/14/2025 12:03 PM EDT [facility], E/M 30-74 MINUTES Routine 03/14/2025 [...] CO2 MONITORING Routine 03/13/2025 8:00 AM EDT [facility], E/M 30-74 MINUTES Routine 03/13/2025 [...] UNSOLICITED RESULTS Routine 03/12/2025 8:41 PM EDT [facility], ADDL 30 MIN Routine 03/12/2025 [...] of21 resultswithin the time period is included. [facility] POCT Glucose 99 74 - 99 mg/dL 03/17/2025 8:33 AM EDT [facility] Comment:Accuracy of a glucos e result [...] Comment 03/17/2025 8:33 AM EDT [facility] Tangled Yarn Worker ID Lindsey Zamora 03/17/2025 8:33 AM EDT HEALTHCARE LAB Device ID [id number] 03/17/2025 8:33 AM EDT [facility]ALTH[facility]ARE LAB Specimen Type POC Capillary 03/17/2025 8:33 AM EDT [facility]ALTH[facility] LAB Blood Capillary blood specimen / Unknown 03/17/2025 8:31 AM EDT 03/17/2025 8:33 AM EDT us Bernardo Chavez MD LAB POINT OF CARE TE ST DOCKED DEVICE UNSOLICITED RESULTS Final Result Performing Organization Address City/State/[facility] de Phone Number HEALTHCARE LAB [address] [place] [address] * (ABNORMAL) CBC W/O Differential (03/17/2025 5:29 AM EDT) Only the most recent of5 resultswithin the time period is included. WBC Count 7.19 3.70 - 10.30 10*3/uL LAB HEMATOLOGY METHOD 03/17/2025 5:[address] [facility] RBC Count 4.43(L) 4.60 - 6.10 10*6/uL LAB HEMATOLOGY METHOD 03/17/2025 5:[address] [facility] HGB 11.9(L) 13.7 - 17.5 g/dL LAB HEMATOLOGY METHOD 03/17/2025 5:[address] [facility] HCT 39.1(L) 40.0 - 51.0 % LAB HEMATOLOGY METHOD 03/17/2025 5:[address] [facility] Platelet Count 188 155 - 369 10*3/uL LAB HEMATOLOGY METHOD 03/17/2025 5:[address] [facility] MCV 88 79 - 98 fL LAB HEMATOLOGY METHOD 03/17/2025 5:[address] [facility] MCH 26.9 26.0 - 32.0 pg LAB HEMATOLOGY METHOD 03/17/2025 5:[address] [facility] MCHC 30.4(L) 30.7 - 35.5 g/dL LAB HEMATOLOGY METHOD 03/17/2025 5:[address] [facility] RDW 16.7(H) 11.5 - 14.5 % LAB HEMATOLOGY METHOD 03/17/2025 5:[address] [facility] MPV 10.1 8.8 - 12.5 fL LAB HEMATOLOGY METHOD 03/17/2025 5:[address] [facility] nRBC 0.0 <=0.0 per 100 WBCs LAB HEMATOLOGY METHOD 03/17/2025 5:[address] [facility] Blood Venous blood specimen / Unknown Venipuncture / Unknown 03/17/2025 5:29 AM EDT 03/17/2025 5:44 AM EDT us Gt De La Paz MD LAB BLOOD ORDERABLES Final Res ult [facility] [address] [place] [address] * (ABNORMAL) Blood gas panel, venous (03/17/2025 5:29 AM EDT) Only the most recent of7 resultswithin the time period is included. pH, Venous 7.35 7.32 - 7.43 LAB HEMATOLOGY METHOD 03/17/2025 5:[address] [facility] pCO2, Venous 59(H) 40 - 55 mmHg LAB HEMATOLOGY METHOD 03/17/2025 5:[address] [facility] pO2, Venous 71(H) 25 - 40 mmHg LAB HEMATOLOGY METHOD 03/17/2025 5:[address] [facility] SO2, Measured, Venous 95(H) 65 - 80 % LAB HEMATOLOGY METHOD 03/17/2025 5:[address] [facility] Base Excess, Venous 5.5(H) -2.0 - 3.0 mmol/L LAB HEMATOLOGY METHOD 03/17/2025 5:[address] [facility] Bicarbonate, Calculated, Venous 33(H) 22 - 26 mmol/L LAB HEMATOLOGY METHOD 03/17/2025 5:[address] [facility] Hematocrit, Whole Blood 37.2(L) 40.0 - 51.0 % LAB HEMATOLOGY METHOD 03/17/2025 5:[address] [facility] Sodium, Whole Blood 139 136 - 145 mmol/L LAB HEMATOLOGY METHOD 03/17/2025 5:[address] [facility] Potassium, Whole Blood 4.6 3.6 - 4.9 mmol/L LAB HEMATOLOGY METHOD 03/17/2025 5:[address] [facility] Chloride, Whole Blood 103 97 - 107 mmol/L LAB HEMATOLOGY METHOD 03/17/2025 5:[address] [facility] Glucose, Whole Blood 88 74 - 99 mg/dL LAB HEMATOLOGY METHOD 03/17/2025 5:[address] [facility] Lactate, Venous, Whole Blood 0.8 0.5 - 2.2 mmol/L LAB HEMATOLOGY METHOD 03/17/2025 5:[address] [facility] Ionized Calcium, Whole Blood 4.6 4.6 - 5.1 mg/dL LAB HEMATOLOGY METHOD 03/17/2025 5:[address] [facility] Blood Venous blood specimen / Unknown Venipuncture / Unknown 03/17/2025 5:29 AM EDT 03/17/2025 5:37 AM EDT Delta Wilhelm MD LAB BLOOD ORDERABLES Final Result Performing Organization Address City/State/[facility] Co de Phone Number [facility] [address] [place] [address] * (ABNORMAL) Basic metabolic panel (03/17/2025 5:29 AM EDT) Only the most recent of4 resultswithin the time period is included. Glucose, Plasma 90 74 - 99 mg/dL 03/17/2025 6:[address] [facility] BUN, Plasma 17 8 - 23 mg/dL 03/17/2025 6:[address] [facility] Creatinine, Plasma 1.31(H) 0.70 - 1.20 mg/dL 03/17/2025 6:[address] [facility] BUN/Creatinine Ratio 13 03/17/2025 6:[address] [facility] Sodium, Plasma 139 136 - 145 mmol/L 03/17/2025 6:[address] [facility] Potassium, Plasma 4.8 3.6 - 4.9 mmol/L 03/17/2025 6:[address] [facility] Comment:Hemolyzed, result ma y be falsely increased. Chloride, Plasma 102 97 - 107 mmol/L 03/17/2025 6:[address] [facility] CO2, Plasma 28 22 - 29 mmol/L 03/17/2025 6:[address] [facility] Anion Gap 9 6 - 16 mmol/L 03/17/2025 6:[address] [facility] Total Calcium, Plasma 8.7(L) 8.9 - 10.2 mg/dL 03/17/2025 6:[address] [facility] eGFRcr 57.8 mL/min/1.7 3m*2 03/17/2025 6:[address] [facility] Comment:Reported eGFRcr in m L/min/1.73m2 is based the CKD-EPI 2020 equation that does not use a race coefficient. Blood Venous blood specimen / Unknown Venipuncture / Unknown 03/17/2025 5:29 AM EDT 03/17/2025 5:40 AM EDT us Gt De La Paz MD LAB BLOOD ORDERABLES Final Res ult [facility] [address] [place] [address] * EEG (03/14/2025 1:31 PM EDT) Anatomical [...] injection 5,000 Units 5,000 Units Subcutaneous q8h [facility] Liz Echevarria MD 5,000 Units at 03/14/25 0621 insulin regular (HumuLIN R,NovoLIN R) 100 units/mL injection - Correction - Standard Dose 0-5 Units Subcutaneous q6h [facility] Lay Clark DO ipratropium-albuterol (Duo-Neb) 0.5-2.5 mg/3 [...] Wilhelm MD NEUROLOGY ORDERABLES Final Result * [facility], E/M 30-74 MINUTES (03/14/2025 7:18 [...] Martín Ocasio MD on 03/14/2025 2:34 AM us Delta Wilhelm MD IMG MRI PROCEDURES Final R esult * Triglycerides (03/14/2025 12:34 AM EDT) Pathologist [facility] Triglycerides, Plasma 114 <150 mg/dL 03/14/2025 1:[address] [facility] Comment: Triglyceride Reference Range (age >17 years): Desirable: <150 mg/dL Borderline high: 150 to 199 mg/dL High: 200 to 499 mg/dL Very high: >499 mg/dL Increased risk of pancreatitis: >1000 mg/dL Fasting greater than or equal to 12 hours? Yes 03/14/2025 1:[address] [facility] Blood Venous blood specimen / Unknown Venipuncture / Unknown 03/14/2025 12:34 AM EDT 03/14/2025 12:44 AM EDT us Staci Castro LAB BLOOD ORDERABLES Final Resul t [facility] [address] [place] [address] * Bronchoalveolar Lavage Cell Count W/ Diff (03/13/2025 11:34 AM EDT) Pathologist [facility] Neutrophils %, BAL 10 % LAB HEMATOLOGY METHOD 03/13/2025 5:[address] [facility] Lymphocytes %, BAL 0 % LAB HEMATOLOGY METHOD 03/13/2025 5:[address] [facility] Monocytes/Macrop hages %, BAL 84 % LAB HEMATOLOGY METHOD 03/13/2025 5:[address] [facility] Eosinophils %, BAL 0 % LAB HEMATOLOGY METHOD 03/13/2025 5:[address] [facility] Basophils %, BAL 0 % LAB HEMATOLOGY METHOD 03/13/2025 5:[address] [facility] Squamous Cells %, BAL 0 % LAB HEMATOLOGY METHOD 03/13/2025 5:[address] [facility] Bronchial Cells %, BAL 6 % LAB HEMATOLOGY METHOD 03/13/2025 5:[address] [facility] Other Cells %, BAL 0 % LAB HEMATOLOGY METHOD 03/13/2025 5:[address] [facility] Comment, BAL None LAB HEMATOLOGY METHOD 03/13/2025 5:[address] [facility] Comment:This is an appended report. These results have been appended to a previously preliminary verified report. Total Nucleated Cell Count, BAL 272 uL LAB HEMATOLOGY METHOD 03/13/2025 5:[address] [facility] Comment:Clot present, may af fect results. Test performed by manual method. Bronchoalveolar Lavage Structure of middle lobe of right lung / Unknown 03/13/2025 11:34 AM EDT 03/13/2025 11:46 AM EDT us Gt De La Paz MD LAB BODY FLUIDS AND STOOLS ORD ERABLES Final Result Performing Organization Address City/[facility] Co de Phone Number [facility] [address] [place] [address] * Fungal Culture, Respiratory and ADAIR (03/13/2025 11:34 AM EDT) Culture No Fungal Growth at 6 Weeks 04/24/2025 10:[address] [facility] ADAIR No fungal elements seen 04/24/2025 10:[address] [facility] Bronchoalveolar Lavage Bronchoalveolar lavage fluid specimen / Unknown 03/13/2025 11:34 AM EDT 03/13/2025 1:08 PM EDT us Gt De La Paz MD LAB MICROBIOLOGY - GENERAL ORD ERABLES Final Result [facility] [address] [place] [address] * AFB Culture, Respiratory Source and Acid Fast Stain (03/13/2025 11:34 AM EDT) AFB Culture No Mycobacterial Growth at 6 Weeks 04/25/2025 1:[address] [facility] Acid Fast Stain No acid fast bacilli seen 04/25/2025 1:[address] [facility] Bronchoalveolar Lavage Bronchoalveolar lavage fluid specimen / Unknown 03/13/2025 11:34 AM EDT 03/13/2025 1:08 PM EDT Gt De La Paz MD LAB MICROBIOLOGY - GENERAL ORD ERABLES Final Result [facility] [address] [place] [address] * BAL Comprehensive Respiratory Panel by PCR (03/13/2025 11:34 AM EDT) BAL Comprehensive PCR Result Not Detected for all analytes Not Detected for all analytes 03/13/2025 1:44 PM EDT [facility] Bronchoalveolar Lavage Bronchoalveolar lavage fluid specimen / Unknown 03/13/2025 11:34 AM EDT 03/13/2025 1:[address] [facility] - 03/13/2025 1:44 PM EDT [...] developed and its performance characteristics determined by [facility] as appropriate for clinical purposes. This assay has not been cleared or approved by the FDA, but is performed in a CLIA regulated laboratory that is performed in a CLIA regulated laboratory that is qualified to perform high-complexity testing. The [facility] is certified under the Clinical Laboratory Improvement Amendments of 1988 (CLIA-88) as qualified to perform high complexity clinical laboratory testing. Gt De La Paz MD LAB MICROBIOLOGY - GENERAL ORD ERABLES Final Result [facility] [address] [place] [address] * Pneumocystis Jirovecii by PCR (03/13/2025 11:34 AM EDT) Pathologist [facility] P. Jirovecii by PCR Not Detected 03/17/2025 12:16 AM EDT [facility] ([facility]) P. Jirovecii Source BAL 03/17/2025 12:16 AM EDT [facility] ([facility]) Bronchoalveolar Lavage Bronchoalveolar lavage fluid specimen / Unknown 03/13/2025 11:34 AM EDT 03/13/2025 11:46 AM EDT Narrative [facility] ([facility]) - 03/17/2025 12:16 AM EDT NOT DETECTED - A negative result does not rule out the presence of PCR inhibitors in the patient specimen or assay specific nucleic acid in concentrations below the level of detection by the assay. This test was developed and its performance characteristics determined by [facility]. It has not been cleared or approved by the US Food and Drug Administration. This test was performed in a CLIA certified laboratory and is intended for clinical purposes. Performed By: [facility] [address] [place] [id number] Township Clerk: Filippo Cortes MD, PhD CLIA Number: [id number] us Gt De La Paz MD LAB REF LAB BLOOD AND FLUID OR D Final Result [facility] ([facility] [address] [place] [address] * Body fluid, cytospin, pathologist interpretation (03/13/2025 11:34 AM EDT) Specimen Type Bronchoalveolar Lavage LAB HEMATOLOGY METHOD 03/14/2025 3:[address] [facility] Specimen Source, Body Fluid Lung, Right Middle Lobe LAB HEMATOLOGY METHOD 03/14/2025 3:[address] [facility] Clinical Diagnosis, Body Fluid Concern for R sided post-obstructive pneumonia in setting of pulmonary mass LAB HEMATOLOGY METHOD 03/14/2025 3:[address] [facility] Interpretation , Body Fluid No evidence of malignancy Predominantly alveolar macrophages Mild acute inflammatory cells A resident was involved in the service. I attest I examined the relevant preparations for the specimens and confirmed the diagnosis or interpretation. 03/14/2025 3:[address] [facility] Pathologist Signature, Body Fluid 03/14/2025 3:[address] [facility] Comment:Reviewed by: Mónica colin MD LAB CP ASR DISCLAIMER Yes 03/14/2025 3:[address] [facility] Bronchoalveolar Lavage Structure of middle lobe of right lung / Unknown 03/13/2025 11:34 AM EDT 03/13/2025 11:46 AM EDT us Gt De La Paz MD LAB BODY FLUIDS AND STOOLS ORD ERABLES Final Result [facility] [address] [place] [address] * Aspergillus galactomannan antigen (03/13/2025 11:34 AM EDT) Aspergillus galactomannan EIA (BAL) 0.051 <0.500 03/15/2025 6:38 PM EDT [facility] ([facility]) Comment: Interpretation: Patients with an index value [...] Aspergillus Galactomannan EIA is a product of [employer] and is FDA approved for in vitro diagnostic use. Testing Performed at: [email or web address] [address] [place] [address], [address] [place] [address] Forest Fire Officer: Dominick Gonsalez, PhD BCLD (ABB) CLIA # [id number] FLAG Interpretation: A = Abnormal, H = High, L = Low Bronchoalveolar Lavage Bronchoalveolar lavage fluid specimen / Unknown 03/13/2025 11:34 AM EDT 03/13/2025 11:46 AM EDT Narrative [facility] ([facility]) - 03/15/2025 6:38 PM EDT Release to patient in [facility]->Immediate us Gt De La Paz MD LAB BODY FLUIDS AND STOOLS ORD ERABLES Final Result [facility] ([facility]) * Quantitative BAL/PAL/Bronch Wash Culture and Gram StainBronchoalveolar Lavage, Right Middle Lobe (03/13/2025 11:34 AM EDT) Culture No growth at day 2 2024 8:[address] [facility] Gram Stain Result No polymorphonuclear leukocytes seen 03/15/2025 8:[address] [facility] Gram Stain Result No organisms seen 03/15/2025 8:[address] [facility] Bronchoalveolar Lavage Bronchoalveolar lavage fluid specimen / Unknown 03/13/2025 11:34 AM EDT 03/13/2025 1:08 PM EDT us Gt De La Paz MD LAB MICROBIOLOGY - GENERAL ORD ERABLES Final Result [facility] [address] [place] [address] * Non-Gynecologic Cytology, Fluid (03/13/2025 11:34 AM EDT) Case Report Cytology Case: [id number] Authorizing Provider: Gt De La Paz MD Collected: 03/13/2025 1134 Ordering Location: [facility] Inpatient Received: 03/14/2025 0828 Pathologist: Kai Gilbert MD Specimen: Bronchial Washing, Right Middle Lobe, BRONCHIAL WASHING, RIGHT MIDDLE LOBE 03/14/2025 5:[address] [facility] Final Diagnosis A. BRONCHIAL WASHING, RIGHT MIDDLE LOBE - NO EVIDENCE OF MALIGNANCY. NO VIRAL CHANGES IDENTIFIED, PREDOMINANTLY MACROPHAGES, GMS STAIN IS NEGATIVE FOR ORGANISMS. 03/14/2025 5:[address] [facility] at 1745 EDT Clinical History possible malignancy 03/14/2025 5:[address] [facility] Previous Cancer No 5:[address] [facility] Gross Description A. BRONCHIAL WASHING, RIGHT MIDDLE LOBE 20 ml's hazy fluid processed as thin prep and GMS 03/14/2025 5:[address] [facility] Non-Gynecologica l (Select Specimen Source) Specimen from lung obtained by bronchial washing procedure / Unknown 03/13/2025 11:34 AM EDT 03/14/2025 8:28 AM EDT us Gt De La Paz MD LAB CYTOLOGY ORDERABLES Final Result [facility] [address] [place] [address] * BEDSIDE BRONCHOSCOPY (03/13/2025 10:30 AM EDT) Narrative Gt De La Paz MD - 03/13/2025 10:30 AM EDT Gt De La Paz MD 03/14/2025 9:30 AM Bronchoscopy Performed by: Gt De La Paz MD Authorized by: Gt De La Paz MD us Gt De La Paz MD IN CLINIC/BEDSIDE ORDERABLES E dited Result - Final * [facility], E/M 30-74 MINUTES (03/13/2025 7:06 [...] LAB HEMATOLOGY METHOD 03/13/2025 1:[address] [facility] Blood Venous blood specimen / Unknown Venipuncture / Unknown 03/13/2025 12:57 AM EDT 03/13/2025 1:09 AM EDT Result [facility] Delta Wilhelm MD LAB BLOOD ORDERABLES Final Result Performing Organization Address [facility]/ZIP Co de Phone Number [facility] [address] [place] [address] * Ionized calcium, serum (03/13/2025 12:57 AM EDT) Ionized Calcium, Serum 4.9 4.6 - 5.3 mg/dL LAB HEMATOLOGY METHOD 03/13/2025 1:[address] [facility] Blood Venous blood specimen / Unknown Venipuncture / Unknown 03/13/2025 12:57 AM EDT 03/13/2025 1:12 AM EDT Result [facility] Delta Wilhelm MD LAB BLOOD ORDERABLES Final Result [facility] [address] [place] [address] * Phosphorus, Plasma (03/13/2025 12:57 AM EDT) Phosphorus, Plasma 2.8 2.5 - 4.5 mg/dL 03/13/2025 1:[address] [facility] Blood Venous blood specimen / Unknown Venipuncture / Unknown 03/13/2025 12:57 AM EDT 03/13/2025 1:12 AM EDT Delta Wilhelm MD LAB BLOOD ORDERABLES Final Result Performing Organization Address City/[facility]/ZIP Co de Phone Number [facility] [address] [place] [address] * (ABNORMAL) Magnesium, Plasma (03/13/2025 12:57 AM EDT) Only the most recent of2 resultswithin the time period is included. Magnesium, Plasma 1.7(L) 1.9 - 2.4 mg/dL 03/13/2025 1:[address] [facility] Blood Venous blood specimen / Unknown Venipuncture / Unknown 03/13/2025 12:57 AM EDT 03/13/2025 1:12 AM EDT Delta Wilhelm MD LAB BLOOD ORDERABLES Final Result Performing Organization Address [facility] Co de Phone Number [facility] [address] [place] [address] * (ABNORMAL) Comprehensive metabolic panel (03/13/2025 12:57 AM EDT) Only the most recent of2 resultswithin the time period is included. Glucose, Plasma 148(H) 74 - 99 mg/dL 03/13/2025 1:[address] [facility] BUN, Plasma 31(H) 8 - 23 mg/dL 03/13/2025 1:[address] [facility] Creatinine, Plasma 2.10(H) 0.70 - 1.20 mg/dL 03/13/2025 1:[address] [facility] BUN/Creatinine Ratio 15 03/13/2025 1:[address] [facility] Sodium, Plasma 136 136 - 145 mmol/L 03/13/2025 1:[address] [facility] Potassium, Plasma 4.5 3.6 - 4.9 mmol/L 03/13/2025 1:[address] [facility] Chloride, Plasma 99 97 - 107 mmol/L 03/13/2025 1:[address] [facility] CO2, Plasma 25 22 - 29 mmol/L 03/13/2025 1:[address] [facility] Anion Gap 12 6 - 16 mmol/L 03/13/2025 1:[address] [facility] Total Calcium, Plasma 9.2 8.9 - 10.2 mg/dL 03/13/2025 1:[address] [facility] Total Protein 6.5 6.3 - 7.9 g/dL 03/13/2025 1:[address] [facility] Albumin, Plasma 3.9 3.5 - 5.2 g/dL 03/13/2025 1:[address] [facility] AST, Plasma 16 10 - 50 U/L 03/13/2025 1:[address] [facility] ALT, Plasma 10 10 - 50 U/L 03/13/2025 1:[address] [facility] Alkaline Phosphatase, Plasma 77 40 - 115 U/L 03/13/2025 1:[address] [facility] Total Bilirubin, Plasma 0.3 0.2 - 1.1 mg/dL 03/13/2025 1:[address] [facility] eGFRcr 32.8 mL/min/1.7 3m*2 03/13/2025 1:[address] [facility] Comment:Reported eGFRcr in m L/min/1.73m2 is based the CKD-EPI 2020 equation that does not use a race coefficient. Blood Venous blood specimen / Unknown Venipuncture / Unknown 03/13/2025 12:57 AM EDT 03/13/2025 1:12 AM EDT us Delta Wilhelm MD LAB BLOOD ORDERABLES Final Result [facility] [address] [place] [address] * Urinalysis Microscopic Examination (03/12/2025 11:05 PM EDT) Urine Urine specimen obtained by clean catch procedure / Unknown Non-blood Collection / Unknown 03/12/2025 11:05 PM EDT 03/12/2025 11:11 PM EDT Delta Wilhelm MD LAB URINE ORDERABLES Final Result [facility] [address] [place] [address] * (ABNORMAL) Opiates Confirm Urine (03/12/2025 11:05 PM EDT) Codeine <50 <50 ng/mL 03/15/2025 5:[address] [facility] Codeine Glucuronide <50 <50 ng/mL 03/15/2025 5:[address] [facility] Desmethyl Tramadol <50 <50 ng/mL 03/15/2025 5:[address] [facility] EDDP - Methadone Metabolite <50 <50 ng/mL 03/15/2025 5:[address] [facility] Hydrocodone 460(H) <50 ng/mL 03/15/2025 5:[address] [facility] Hydromorphone 177(H) <50 ng/mL 03/15/2025 5:[address] [facility] Hydromorphone Glucuronide >1,000(H) <50 ng/mL 03/15/2025 5:[address] [facility] Comment:Metabolite of Hydrom orphone Meperidine <50 <50 ng/mL 03/15/2025 5:[address] [facility] Methadone <50 <50 ng/mL 03/15/2025 5:[address] [facility] 6 Monoacetyl morphine <10 <10 ng/mL 03/15/2025 5:[address] [facility] Morphine <50 <50 ng/mL 03/15/2025 5:[address] [facility] Morphine Glucuronide <50 <50 ng/mL 03/15/2025 5:[address] [facility] Comment:Metabolite of Morphi ne Naloxone <50 <50 ng/mL 03/15/2025 5:[address] [facility] Naloxone Glucuronide <50 <50 ng/mL 03/15/2025 5:[address] [facility] Comment:Metabolite of Naloxo ne Normeperidine <50 <50 ng/mL 03/15/2025 5:[address] [facility] Tramadol <50 <50 ng/mL 03/15/2025 5:[address] [facility] Urine Urine specimen obtained by clean catch procedure / Unknown Non-blood Collection / Unknown 03/12/2025 11:05 PM EDT 03/12/2025 11:[address] [facility] - 03/15/2025 5:06 PM EDT Drug analysis is confirmed by LC-MS/MS (LC Tandem Mass Spectrometry) on Urine specimens. This test was developed and its performance characteristics determined by [facility]. It has not been cleared or approved by the FDA. The laboratory is regulated under CLIA as qualified to perform high-complexity testing. This test is used for clinical purposes. Testing is performed at the [facility]. Delta Wilhelm MD LAB URINE ORDERABLES Final Result [facility] [address] [place] [address] * Drug Abuse Screen Urine (03/12/2025 11:05 PM EDT) Amphetamine Screen Urine Negative Cutoff: 500 ng/mL 03/12/2025 11:[address] [facility] Benzodiazepines Screen Urine Negative Cutoff: 200 ng/mL 03/12/2025 11:[address] [facility] Cannabinoid Screen Urine Negative Cutoff: 50 ng/mL 03/12/2025 11:[address] [facility] Cocaine Screen Urine Negative Cutoff: 300 ng/mL 03/12/2025 11:[address] [facility] Barbiturate Screen Urine Negative Cutoff: 200 ng/mL 03/12/2025 11:[address] [facility] Opiate Screen Urine Presumptive positive. Confirmation by LC-MS/MS to follow. Cutoff: 300 ng/mL 03/12/2025 11:[address] [facility] Methadone Screen Urine Negative Cutoff: 300 ng/mL 03/12/2025 11:[address] [facility] Buprenorphine Screen Urine Negative Cutoff: 10 ng/mL 03/12/2025 11:[address] [facility] Fentanyl Screen Urine Presumptive positive. Confirmation by LC-MS/MS to follow. Cutoff: 1 ng/mL 03/12/2025 11:[address] [facility] Oxycodone Screen Urine Negative Cutoff: 100 ng/mL 03/12/2025 11:[address] [facility] Urine Urine specimen obtained by clean catch procedure / Unknown Non-blood Collection / Unknown 03/12/2025 11:05 PM EDT 03/12/2025 11:11 PM EDT Delta Wilhelm MD LAB URINE ORDERABLES Final Result [address] [address] * (ABNORMAL) Fentanyl Urine Confirm (03/12/2025 11:05 PM EDT) Fentanyl 3(H) <1 ng/mL 03/15/2025 5:[address] [facility] Norfentanyl 5(H) <2 ng/mL 03/15/2025 5:[address] [facility] Urine Urine specimen obtained by clean catch procedure / Unknown Non-blood Collection / Unknown 03/12/2025 11:05 PM EDT 03/12/2025 11:[address] [facility] - 03/15/2025 5:06 PM EDT Drug analysis is confirmed by LC-MS/MS (LC Tandem Mass Spectrometry) on Urine specimens. This test was developed and its performance characteristics determined by [facility]. It has not been cleared or approved by the FDA. The laboratory is regulated under CLIA as qualified to perform high-complexity testing. This test is used for clinical purposes. Testing is performed at the [facility]. us Delta Wilhelm MD LAB URINE ORDERABLES Final Result [facility] [address] [place] [address] * (ABNORMAL) Urinalysis with reflex microscopic (Culture NOT Included) (03/12/2025 11:05 PM EDT) Color, Urine Yellow LAB URINALYSIS - AUTOMATED METHOD 03/13/2025 12:[address] [facility] Clarity, Urine Clear LAB URINALYSIS - AUTOMATED METHOD 03/13/2025 12:[address] [facility] Spec [place], Urine >1.030(H) 1.005 - 1.030 LAB URINALYSIS - AUTOMATED METHOD 03/13/2025 12:[address] [facility] pH, Urine 7.0 5.0 - 8.0 LAB URINALYSIS - AUTOMATED METHOD 03/13/2025 12:[address] [facility] Protein, Urine 30(A) Negative mg/dL LAB URINALYSIS - AUTOMATED METHOD 03/13/2025 12:[address] [facility] Glucose, Urine 100(A) Negative mg/dL LAB URINALYSIS - AUTOMATED METHOD 03/13/2025 12:[address] [facility] Ketones, Urine Negative Negative mg/dL LAB URINALYSIS - AUTOMATED METHOD 03/13/2025 12:[address] [facility] Blood, Urine Large(A) Negative LAB URINALYSIS - AUTOMATED METHOD 03/13/2025 12:[address] [facility] Bilirubin, Urine Negative Negative LAB URINALYSIS - AUTOMATED METHOD 03/13/2025 12:[address] [facility] Urobilinogen, Urine 0.2 0.2 to 1.0 mg/dL LAB URINALYSIS - AUTOMATED METHOD 03/13/2025 12:[address] [facility] Leukocytes, Urine Moderate(A) Negative LAB URINALYSIS - AUTOMATED METHOD 03/13/2025 12:[address] [facility] Nitrite, Urine Negative Negative LAB URINALYSIS - AUTOMATED METHOD 03/13/2025 12:[address] [facility] RBC, Urine >50(A) 0 to 3 /HPF LAB URINALYSIS - AUTOMATED METHOD 03/13/2025 12:[address] [facility] WBC, Urine >50(A) 0 to 5 /HPF LAB URINALYSIS - AUTOMATED METHOD 03/13/2025 12:[address] [facility] Squamous Epithelial Cells 0 - 2 0 to 5 /HPF LAB URINALYSIS - AUTOMATED METHOD 03/13/2025 12:[address] [facility] Hyaline Casts 0 - 2 0 to 5 /LPF LAB URINALYSIS - AUTOMATED METHOD 03/13/2025 12:[address] [facility] Bacteria, Urine Negative Negative LAB URINALYSIS - AUTOMATED METHOD 03/13/2025 12:[address] [facility] Urine Urine specimen obtained by clean catch procedure / Unknown Non-blood Collection / Unknown 03/12/2025 11:05 PM EDT 03/12/2025 11:11 PM EDT Delta Wilhelm MD LAB URINE ORDERABLES Final Result Performing Organization Address City/[facility]/[place] [address] * Shona auris Surveillance by PCR (03/12/2025 10:18 PM EDT) Shona auris PCR Result Not Detected Not Detected 03/14/2025 6:[address] [facility] Swab (Axilla and Groin) Non-blood Collection / Unknown 03/12/2025 10:18 PM EDT 03/12/2025 10:[address] [facility] - 03/14/2025 6:39 AM EDT This PCR assay was developed and its performance characteristics determined by [facility] as appropriate for clinical purposes. This assay has not been cleared or approved by the FDA, but is performed in a CLIA regulated laboratory that is qualified to perform high-complexity testing. us Delta Wilhelm MD LAB MICROBIOLOGY - GENERAL ORDERABLES Final Result Performing Organization Address [facility]/ZIP Co de Phone Number [facility] [address] [place] [address] * Multi Drug Resistance Test (03/12/2025 10:18 PM EDT) Culture No growth at day 1 03/14/2025 8:[address] [facility] Swab (Nares and Jazmyn Rectal) Non-blood Collection / Unknown 03/12/2025 10:18 PM EDT 03/12/2025 10:[address] [facility] - 03/14/2025 8:08 AM EDT This test was developed and its performance characteristics determined by the [facility]. Although the media is FDA-approved, it is not FDA-approved for all specimen types submitted. The FDA has determined that such clearance or approval is not necessary. This test is used for surveillance purposes. It should not be regarded as investigational or for research. The [facility] is certified under the Clinical Laboratory Improvement Amendments of 1988 (CLIA-88) as qualified to perform high complexity clinical laboratory testing. Delta Wilhelm MD LAB MICROBIOLOGY - GENERAL ORDERABLES Final Result Performing Organization Address City/[facility]/ZIP Co de Phone Number [facility] [address] [place] [address] * (ABNORMAL) Troponin T, High Sensitivity, 2 Hour, Plasma (03/12/2025 10:17 PM EDT) [facility] Troponin T, High Sensitivity, 2 Hour 28(H) <19 ng/L 03/12/2025 10:[address] [facility] Troponin Delta Interpretation Not Calculated 03/12/2025 10:[address] [facility] Comment:Specimen not collect ed within acceptable timeframe. Delta will not be calculated. Blood Venous blood specimen / Unknown Venipuncture / Unknown 03/12/2025 10:17 PM EDT 03/12/2025 10:22 PM EDT Staci Castro LAB BLOOD ORDERABLES Final Resul t Performing Organization Address [facility] Co de Phone Number [facility] [address] [place] [address] * (ABNORMAL) Potassium (03/12/2025 10:17 PM EDT) Potassium, Plasma 6.3(H) 3.6 - 4.9 mmol/L 03/12/2025 10:[address] [facility] Blood Venous blood specimen / Unknown Venipuncture / Unknown 03/12/2025 10:17 PM EDT 03/12/2025 10:22 PM EDT Delta Wilhelm MD LAB BLOOD ORDERABLES Final Result [facility] [address] [place] [address] * XR Chest 1 View (03/12/2025 9:21 [...] of the abdomen. COMPARISON: None. FINDINGS: Limited [id number] abdominal radiograph for the purpose of locating tube position. The tip of the nasogastric tube is within the proximal stomach. Procedure Note Libra Balbuena MD - 03/12/2025 CLINICAL INDICATION: Orogastric tube TECHNIQUE: Supine radiograph of the abdomen. COMPARISON: None. FINDINGS: Limited [id number] abdominal radiograph for the purpose of locatingtube position. The tip of the nasogastric tube is within the proximal stomach. IMPRESSION: The tip of the nasogastric tube is within the proximal stomach. CRITICAL RESULT: No. COMMUNICATION: Per this written report. Drafted by Lirba Balbuena MD on 03/12/2025 9:27 PM Final report signed by Libra Balbuena MD on 03/12/2025 9:28 PM us Staci CORDERO XR PROCEDURES Final Result * Blood Culture (Aerobic/Anaerobet Set) (03/12/2025 9:12 PM EDT) Only the most recent of2 resultswithin the time period is included. Culture No growth at day 5 03/17/2025 10:[address] [facility] Blood Structure of left forearm / Unknown Venipuncture / Unknown 03/12/2025 9:12 PM EDT 03/12/2025 9:[address] [facility] - 03/17/2025 10:01 PM EDT Low blood volume submitted, results may be compromised us Staci Castro LAB MICROBIOLOGY - GENERAL ORDER ALLEN Final Result Performing Organization Address City/[facility]/ZIP Co de Phone Number [facility] [address] [place] [address] * Methemoglobin (03/12/2025 9:07 PM EDT) Pathologist [facility] Methemoglobin 0.6 0.0 - 1.5 % LAB HEMATOLOGY METHOD 03/12/2025 9:[address] [facility] Blood Venous blood specimen / Unknown Venipuncture / Unknown 03/12/2025 9:07 PM EDT 03/12/2025 9:17 PM EDT Result Colton Castro LAB BLOOD ORDERABLES Final Resul t Performing Organization Address City/[facility]/ZIP Co de Phone Number [facility] [address] [place] [address] * Streptococcus pneumoniae and Legionella Urinary Antigen (03/12/2025 9:00 PM EDT) [facility] Legionella pneumophila serogroup 1 Antigen Result (Urine) Negative Negative 03/12/2025 9:[address] [facility] Streptococcus pneumoniae Antigen Result (Urine) Negative Negative 03/12/2025 9:[address] [facility] Urine Urine specimen obtained by clean catch procedure / Unknown Non-blood Collection / Unknown 03/12/2025 9:00 PM EDT 03/12/2025 9:19 PM EDT Result Colton Castro LAB MICROBIOLOGY - GENERAL ORDER ALLEN Final Result Performing Organization Address City/[facility]/[place] [address] * (ABNORMAL) POCT arterial blood gas gem (03/12/2025 8:57 PM EDT) Pathologist [facility] pH, Arterial 7.34 7.31 - 7.42 03/12/2025 8:59 PM EDT [facility] pCO2, Arterial 53(H) 32 - 45 mm Hg 03/12/2025 8:59 PM EDT [facility] pO2, Arterial 75 >70 mm Hg 03/12/2025 8:59 PM T [facility] SO2, Arterial 98 94 - 98 % 03/12/2025 8:59 PM EDT [facility] FIO2 100.0 % 03/12/2025 8:59 PM T [facility] Base Excess, Arterial 1.9 -2 - 3 mmol/L 03/12/2025 8:59 PM T [facility] HCO3, Arterial 28.6(H) 22 - 26 mmol/L 03/12/2025 8:59 PM T [facility] Total Hemoglobin, Arterial, Whole Blood 11.8(L) 13.7 - 17.5 g/dL 03/12/2025 8:59 PM [facility] Hematocrit, Arterial 35.0(L) 40 - 51.0 % 03/12/2025 8:59 PM T [facility] Sodium, Arterial 132(L) 136 - 145 mmol/L 03/12/2025 8:59 PM [facility] Potassium, Arterial 6.2(H) 3.6 - 4.9 mmol/L 03/12/2025 8:59 PM [facility] Comment:Hemolyzed, result ma y be falsely increased. Chloride, Whole Blood 101 97 - 107 mmol/L 03/12/2025 8:59 PM [facility] Glucose, Arterial 121(H) 74 - 99 mg/dL 03/12/2025 8:59 PM T [facility] Ionized Calcium, Arterial 4.6 4.6 - 5.1 mg/dL 03/12/2025 8:59 PM T [facility] Lactate, Arterial 0.7 0.5 - 1.6 mmol/L 03/12/2025 8:59 PM T [facility] Body Temperature 37.2 Celsius 03/12/2025 8:59 PM [facility] pH, Temp Corrected, Arterial 7.34 7.31 - 7.42 03/12/2025 8:59 PM T [facility] pCO2, Temp Corrected, Arterial 53(H) 32 - 45 mm Hg 03/12/2025 8:59 PM EDT [facility] pO2, Temp Corrected, Arterial 76 >70 mm Hg 03/12/2025 8:59 PM EDT [facility] Tangled [employer] Worker ID Dwayne Bose 03/12/2025 8:59 PM EDT [facility] Blood, Arterial Whole blood specimen / Unknown 03/12/2025 8:57 PM EDT 03/12/2025 8:59 PM EDT Staci Castro LAB POINT OF CARE TE ST DOCKED DEVICE UNSOLICITED RESULTS Final Result Performing Organization Address City/[facility]/ZIP Co de Phone Number [facility] [address] [place] [address] * SARS CoV-2/COVID-19 by PCR - Rapid (03/12/2025 8:53 PM EDT) Pathologist [facility] SARS CoV-2/COVID-1 9 RNA PCR Result Not Detected Not Detected 03/12/2025 10:09 PM EDT [facility] Swab Nasopharyngeal structure / Unknown Non-blood Collection / Unknown 03/12/2025 8:53 PM EDT 03/12/2025 9:[address] [facility] - 03/12/2025 10:09 PM EDT [...] ORDER ALLEN Final Result Performing Organization Address City/[facility]/ZIP Co de Phone Number [facility] [address] [place] [address] * Nasopharyngeal Respiratory Panel (03/12/2025 8:53 PM EDT) Nasopharyngeal Respiratory PCR Interpretation Not Detected for all analytes Not Detected for all analytes 03/13/2025 1:10 AM EDT [facility] Swab Nasopharyngeal structure / Unknown Non-blood Collection / Unknown 03/12/2025 8:53 PM EDT 03/12/2025 9:[address] [facility] - 03/13/2025 1:10 AM EDT [...] Respiratory PCR Panel is performed using the [employer] ([employer] e[employer]lex instrument. This test is FDA approved for use with Nasopharyngeal swabs only. This test is used for clinical purposes. It should not be regarded as investigational or for research. The [facility] is certified under the Clinical Laboratory Improvement Amendments of 1988 (CLIA-88) as qualified to perform high complexity clinical laboratory testing. us Staci Castro LAB MICROBIOLOGY - GENERAL ORDER ALLEN Final Result [facility] [address] [place] [address] * Methicillin Resistant Staphylococcus aureus (MRSA) by PCR (03/12/2025 8:53 PM EDT) Methicillin Resistant Staphylococcus aureus (MRSA) by PCR Not Detected Not Detected 03/12/2025 10:41 PM EDT [facility] Swab Both anterior nares / Unknown Non-blood Collection / Unknown 03/12/2025 8:53 PM EDT 03/12/2025 9:[address] [facility] - 03/12/2025 10:41 PM EDT [...] ORDER ALLEN Final Result Performing Organization Address City/[facility]/ZIP Co de Phone Number [facility] [address] [place] [address] * EKG now - STAT (adult) (03/12/2025 8:49 PM EDT) EKG DIAGNOSIS CLASS Abnormal MUSE ECG Ventricular Rate 62 BPM MUSE ECG Atrial Rate 62 BPM MUSE ECG UT Interval 168 ms MUSE ECG QRSD Interval 128 ms MUSE ECG QT Interval 416 ms MUSE ECG QTC Interval 422 ms MUSE ECG P [place] 64 degrees MUSE ECG R [place] 81 degrees MUSE ECG T Wave [place] 81 degrees MUSE ECG Diagnosis Normal sinus rhythm MUSE ECG Diagnosis Right bundle branch block MUSE ECG Diagnosis Abnormal ECG MUSE ECG Diagnosis MUSE ECG Diagnosis Confirmed by Chino Witt ([id number]) on 03/13/2025 8:51:16 PM MUSE ECG 03/12/2025 8:49 PM EDT 03/13/2025 8:51 PM EDT us Staci Castro ECG ORDERABLES Final Result Performing Organization Address [facility] Co de Phone Number MUSE ECG * ED HIV 1/2 Antibody/Antigen Screen w/Reflex to HIV 1/2 Differentiation (03/12/2025 8:48 PM EDT) HIV 1 & 2 Antibody/Antigen Screen Non Reactive Non Reactive 03/12/2025 9:[address] [facility] Comment:Screening for HIV 1 & 2 antibodies, and P24 antigen is NONREACTIVE. No confirmatory testing is required. Blood Venous blood specimen / Unknown Venipuncture / Unknown 03/12/2025 8:48 PM EDT 03/12/2025 9:00 PM EDT us Staci Castro LAB BLOOD ORDERABLES Final Resul t Performing Organization Address [facility]/ZIP Co de Phone Number [facility] [address] [place] [address] * TSH Reflex FT4 (03/12/2025 8:48 PM EDT) Thyroid Stimulating Hormone, Plasma 2.54 0.40 - 4.20 uIU/mL 03/12/2025 10:[address] [facility] Blood Venous blood specimen / Unknown Venipuncture / Unknown 03/12/2025 8:48 PM EDT 03/12/2025 8:59 PM EDT us Delta Wilhelm MD LAB BLOOD ORDERABLES Final Result Performing Organization Address [facility] [place] [address] * (ABNORMAL) Troponin now and 120 min (03/12/2025 8:48 PM EDT) Troponin T, High Sensitivity, 0 Hour 32(H) <19 ng/L 03/12/2025 9:37 PM EDT [facility] Blood Venous blood specimen / Unknown Venipuncture / Unknown 03/12/2025 8:48 PM EDT 03/12/2025 8:59 PM EDT us Staci Castro LAB BLOOD ORDERABLES Final Resul t Performing Organization Address City/[facility]/ZIP Co de Phone Number [facility] [address] [place] [address] * Light Green Top (03/12/2025 8:48 PM EDT) Extra Hold for add-ons 03/13/2025 12:[address] [facility] Comment:Auto resulted. Blood Venous blood specimen / Unknown 03/12/2025 8:48 PM EDT 03/12/2025 9:20 PM EDT us Delta Wilhelm MD LAB BLOOD ORDERABLES Final Result [facility] [address] [place] [address] * Light Blue Top (03/12/2025 8:48 PM EDT) [facility] Extra Hold for add-ons 03/13/2025 12:[address] [facility] Comment:Auto resulted. Blood Venous blood specimen / Unknown 03/12/2025 8:48 PM EDT 03/12/2025 9:20 PM EDT Delta Wilhelm MD LAB BLOOD ORDERABLES Final Result Performing Organization Address [facility] Co de Phone Number [facility] [address] [place] [address] * (ABNORMAL) Procalcitonin (03/12/2025 8:48 PM EDT) [facility] Procalcitonin, Plasma 0.11(H) <0.09 ng/mL 03/12/2025 9:37 PM EDT [facility] Blood Venous blood specimen / Unknown Venipuncture / Unknown 03/12/2025 8:48 PM EDT 03/12/2025 8:[address] [facility] - 03/12/2025 9:37 PM EDT [...] predict 28 day mortality risk. Please consult [email or web address] for more information. Test performed at [facility]. us Staci Castro LAB BLOOD ORDERABLES Final Resul t [facility] [address] [place] [address] * Hepatitis C Antibody - ED (03/12/2025 8:48 PM EDT) Hepatitis C Antibody Negative Negative 03/12/2025 9:38 PM EDT [facility] Blood Venous blood specimen / Unknown Venipuncture / Unknown 03/12/2025 8:48 PM EDT 03/12/2025 8:59 PM EDT us Staci Castro LAB BLOOD ORDERABLES Final Resul t Performing Organization Address [facility] [place] [address] * (ABNORMAL) PT-INR (03/12/2025 8:48 PM EDT) Prothrombin Time 14.6(H) 12.0 - 14.3 sec 03/12/2025 9:06 PM EDT [facility] INR 1.2(H) 0.9 - 1.1 03/12/2025 9:06 PM EDT [facility] Blood Venous blood specimen / Unknown Venipuncture / Unknown 03/12/2025 8:48 PM EDT 03/12/2025 8:[address] [facility] - 03/12/2025 9:06 PM EDT [...] ORDERABLES Final Resul t Performing Organization Address City/[facility]/[place] [address] * (ABNORMAL) CBC w/diff (03/12/2025 8:48 PM EDT) WBC Count 9.02 3.70 - 10.30 10*3/uL LAB HEMATOLOGY METHOD 03/12/2025 8:[address] [facility] RBC Count 4.48(L) 4.60 - 6.10 10*6/uL LAB HEMATOLOGY METHOD 03/12/2025 8:[address] [facility] HGB 12.3(L) 13.7 - 17.5 g/dL LAB HEMATOLOGY METHOD 03/12/2025 8:[address] [facility] HCT 39.2(L) 40.0 - 51.0 % LAB HEMATOLOGY METHOD 03/12/2025 8:[address] [facility] Platelet Count 196 155 - 369 10*3/uL LAB HEMATOLOGY METHOD 03/12/2025 8:[address] [facility] MCV 88 79 - 98 fL LAB HEMATOLOGY METHOD 03/12/2025 8:[address] [facility] MCH 27.5 26.0 - 32.0 pg LAB HEMATOLOGY METHOD 03/12/2025 8:[address] [facility] MCHC 31.4 30.7 - 35.5 g/dL LAB HEMATOLOGY METHOD 03/12/2025 8:[address] [facility] RDW 16.8(H) 11.5 - 14.5 % LAB HEMATOLOGY METHOD 03/12/2025 8:[address] [facility] MPV 9.4 8.8 - 12.5 fL LAB HEMATOLOGY METHOD 03/12/2025 8:[address] [facility] nRBC 0.0 <=0.0 per 100 WBCs LAB HEMATOLOGY METHOD 03/12/2025 8:[address] [facility] Differential Type Automated LAB HEMATOLOGY METHOD 03/12/2025 8:[address] [facility] Neutrophils % 87 % LAB HEMATOLOGY METHOD 03/12/2025 8:[address] [facility] Lymphocytes % 11 % LAB HEMATOLOGY METHOD 03/12/2025 8:[address] [facility] Monocytes % 2 % LAB HEMATOLOGY METHOD 03/12/2025 8:[address] [facility] Eosinophils % 0 % LAB HEMATOLOGY METHOD 03/12/2025 8:[address] [facility] Basophils % 0 % LAB HEMATOLOGY METHOD 03/12/2025 8:[address] [facility] Immature Granulocytes % 0 % LAB HEMATOLOGY METHOD 03/12/2025 8:[address] [facility] Neutrophils Absolute 7.72(H) 1.60 - 6.10 10*3/uL LAB HEMATOLOGY METHOD 03/12/2025 8:[address] [facility] Lymphocytes Absolute 1.01(L) 1.20 - 3.90 10*3/uL LAB HEMATOLOGY METHOD 03/12/2025 8:[address] [facility] Monocytes Absolute 0.22(L) 0.30 - 0.90 10*3/uL LAB HEMATOLOGY METHOD 03/12/2025 8:[address] [facility] Eosinophils Absolute 0.03 0.00 - 0.50 10*3/uL LAB HEMATOLOGY METHOD 03/12/2025 8:[address] [facility] Basophils Absolute 0.02 0.00 - 0.10 10*3/uL LAB HEMATOLOGY METHOD 03/12/2025 8:[address] [facility] Immature Granulocytes Absolute 0.02 0.00 - 0.06 10*3/uL LAB HEMATOLOGY METHOD 03/12/2025 8:[address] [facility] Blood Venous blood specimen / Unknown Venipuncture / Unknown 03/12/2025 8:48 PM EDT 03/12/2025 8:[address] [facility] - 03/12/2025 8:56 PM EDT Therapeutic decision making should be based on absolute values, rather than percentages. us Staci Castro LAB BLOOD ORDERABLES Final Resul t [facility] [address] [place] [address] * (ABNORMAL) C-reactive protein (03/12/2025 8:48 PM EDT) CRP, Plasma 10.6(H) <=8.0 mg/L 03/12/2025 10:[address] [facility] Blood Venous blood specimen / Unknown Venipuncture / Unknown 03/12/2025 8:48 PM EDT 03/12/2025 8:59 PM EDT Narrative [facility] - 03/12/2025 10:27 PM EDT This CRP test is appropriate for assessment of infection, systemic inflammation and/or tissue injury. To assess cardiovascular disease risk order high sensitivity CRP (CRPH). us Delta Wilhelm MD LAB BLOOD ORDERABLES Final Result [facility] [address] [place] [address] * (ABNORMAL) POCT venous blood gas gem (03/12/2025 8:41 PM EDT) pH, Venous 7.34 7.32 - 7.43 03/12/2025 8:42 PM EDT [facility] pCO2, Venous 57(H) 40 - 55 mm Hg 03/12/2025 8:42 PM EDT [facility] pO2, Venous 46(H) 25 - 40 mm Hg 03/12/2025 8:42 PM EDT [facility] SO2, Venous 82(H) 65 - 80 % 03/12/2025 8:42 PM EDT [facility] Base Excess/Deficit, Venous 3.7(H) -2 - 3 mmol/L 03/12/2025 8:42 PM EDT [facility] HCO3, Venous 30.8(H) 22 - 26 mmol/L 03/12/2025 8:42 PM EDT [facility] Hemoglobin, Venous 12.3(L) 13.7 - 17.5 g/dL 03/12/2025 8:42 PM EDT [facility] Hematocrit, Venous 37.0(L) 40.0 - 51.0 % 03/12/2025 8:42 PM EDT [facility] Sodium, Venous 132(L) 136 - 145 mmol/L 03/12/2025 8:42 PM EDT [facility] Potassium, Venous 6.4(H) 3.6 - 4.9 mmol/L 03/12/2025 8:42 PM EDT [facility] Comment:Hemolyzed, result ma y be falsely increased. POCT Chloride, Venous 101 97 - 107 mmol/L 03/12/2025 8:42 PM EDT [facility] Glucose, Venous 113(H) 74 - 99 mg/dL 03/12/2025 8:42 PM EDT [facility] Ionized Calcium, Venous 4.6 4.6 - 5.1 mg/dL 03/12/2025 8:42 PM EDT [facility] Lactate, Venous 0.9 0.5 - 2.2 mmol/L 03/12/2025 8:42 PM EDT [facility] Body Temperature 37.0 Celsius 03/12/2025 8:42 PM EDT [facility] pH, Temp Corrected, Venous 7.34 7.32 - 7.43 03/12/2025 8:42 PM EDT [facility] pCO2, Temp Corrected, Venous 57(H) 40 - 55 mm Hg 03/12/2025 8:42 PM EDT [facility] pO2, Temp Corrected, Venous 46(H) 25 - 40 mm Hg 03/12/2025 8:42 PM EDT [facility] Tangled Yarn Worker ID Irene Ro 03/12/2025 8:42 PM EDT [facility] Blood, Venous Whole blood specimen / Unknown 03/12/2025 8:41 PM EDT 03/12/2025 8:42 PM EDT us Generic Provider Poct LAB POINT OF CARE TEST DOCKED DEVICE UNSOLICITED RESULTS Final Result Performing Organization Address City/State/[facility] [place] Phone Number [facility] [address] [place] [address] * [facility], ADDL 30 MIN (03/12/2025 8:41 [...] Final Result from Last 3 Months Insurance [facility] MED[facility] Advance Directives * Full Code (Latest Code Status on File) Date Activated Date Inactivated Comments 03/12/2025 9:57 PM 03/17/2025 2:00 PM Question Answer Comments I have reviewed the capacity from the link above and, if needed, have updated to appropriate status: Yes Care Teams Agricultural Research Technician Relationship Specialty Start Date End Date Joycelyn Montes PA [address] [place] [address] PCP - General 04/01/23
--- OUTSIDE RECORDS SUMMARY | 2025-05-02 10:07 | XMS_ITS | Encounter Summary ---
Author Organization Healthcare Address [address] [place] [address] Care Team Providers Care System Administration Advisor Name Role Phone Joycelyn Montes PANKAJ Primary Care Provider [phone] Brinda Pineda LPN Unavailable Unavailable Encounter Details Date Type Department Care Team (Late st Contact Info) Description 02/23/2024 Orders Only External Location [address] [place] [address] Olga Shin MD [address] [place] [address] Social History Tobacco Use Types [...] 025 1:10 AM EDT Tuberculosis Rule-Out Comment:Per [facility] chat with Lay Clark, on 03/15/25 @ 0842, there is no concern for TB. - Arayannel Ravindra 03/13/2025 03/13/2025 03/13/2025 11:31 AM EDT documented as of this encounter Care Teams System Administration Advisor Relationship Specialty Start Date End Date Joycelyn Montes PA [address] [place] [address] PCP - General 04/01/23 Brinad Pineda LPN [employer]ED [place] [address] TCM Nurse 03/18/25 04/17/25 documented as of this encounter
--- OUTSIDE RECORDS SUMMARY | 2025-05-02 10:08 | XMS_ITS | Encounter Summary ---
Author Organization Healthcare Address [address] [place] [address] Care Team Providers Care Missing Persons Investigator Name Role Phone Denis Montesie Mario Alberto LIRA Primary Care Provider [phone] Encounter Details Date Type Department Care Team ([facility] st Contact Info) Description 03/12/2025 Orders Only External Location [address] [place] [address] Provider, External Social History Tobacco Use Types [...] and Family Not on file 03/15/2025 Attends Yazdanism Services Not on file 03/15 Active Member [...] any time in the past 12 m [facility], were you homeless or living in a care home (including now)? No 03/15/2025 Utilities Answer Date Recorded In the past 12 months has th e [employer], gas, oil, or water [employer] threatened to shut off services in your [...] with Lay Clark DO on 03/15/25 @ 9607, there is no concern for TB. - Grover Waite 03/13/2025 03/13/2025 03/13/2025 11:31 AM EDT Assessment Noted Time A fall risk assessment has been complete d for the patient 04/07/2024 2:13 PM EDT A Body Mass Index follow-up plan has been documented for the patient 03/17/2025 11:22 AM EDT documented as of this encounter Care Teams Missing Persons Investigator Relationship Specialty Start Date End Date Joycelyn Montes PA [address] [place] [address] PCP - General 04/01/23 documented as of this encounter
--- OUTSIDE RECORDS SUMMARY | 2025-05-02 10:08 | XMS_ITS | Encounter Summary ---
Author Organization [facility] Address [address] [place] [address] Care Team Providers Care Store Team Leader Name Role Phone SimonJoycelyn PANKAJ Primary Care Provider [phone] Encounter Details Date Type Department Care Team [...] the past 12 months has th e [employer], gas, oil, or water company threatened to [...] documented as of this encounter Care Teams Store Team Leader Relationship Specialty Start Date End Date Joycelyn Montes PA [address] [place] [address] PCP - General 04/01/23 documented as of this encounter
--- OUTSIDE RECORDS SUMMARY | 2025-05-02 10:08 | XMS_ITS ---
Author Organization [facility] Address [address] [place] [address] Care Team Providers Care Quality Eng Name Role Phone SimonJoycelyn PANKAJ Primary Care Provider Active Problems Problem Noted Date Diagnosed Date [...]
--- OUTSIDE RECORDS SUMMARY | 2025-05-02 10:08 | XMS_ITS | Encounter Summary ---
Author Organization Healthcare Address [address] [place] [address] Care Team Providers Care Rail Transportation Tabeler Name Role Phone Denis Montesie Mario Alberto LIRA Primary Care Provider Encounter Details Date Type Department Care Team ([facility] st Contact Info) Description 03/12/2025 Orders Only External Location [address] [place] [address] Provider, External Social History Tobacco Use Types [...] and Family Not on file 03/15/2025 Attends Judaism Services Not on file 03/15 Active Member [...] in the past 12 m [facility], were you homeless or living in a [facility]p (including now)? No 03/15/2025 Utilities Answer Date Recorded In the past 12 months has th e [employer], gas, oil, or water [employer] threatened to shut off services in your [...] with Lay Clark DO on 03/15/25 @ 4650, there is no concern for TB. - Grover Waite 03/13/2025 03/13/2025 03/13/2025 11:31 AM EDT Assessment Noted Time A fall risk assessment has been complete d for the patient 04/07/2024 2:13 PM EDT A Body Mass Index follow-up plan has been documented for the patient 03/17/2025 11:22 AM EDT documented as of this encounter Care Teams Rail Transportation Tabeler Relationship Specialty Start Date End Date Joycelyn Montes PA [address] [place] [address] PCP - General 04/01/23 documented as of this encounter
--- OUTSIDE RECORDS SUMMARY | 2025-05-02 10:08 | XMS_ITS | Encounter Summary ---
Author Organization [facility] Address [address] [place] [address] Care Team Providers Care Swing Tender Name Role Phone Joycelyn Montes Primary Care Provider [phone] Encounter Details Date Type Department Care Team [...] documented as of this encounter Care Teams Swing Tender Relationship Specialty Start Date End Date Joycelyn Montes PA [address] [place] [address] PCP - General 04/01/23 documented as of this encounter
--- OUTSIDE RECORDS SUMMARY | 2025-05-02 10:08 | XMS_ITS | Encounter Summary ---
Author Organization [facility] Address [address] [place] [address] Care Team Providers Care Correction Officer Name Role Phone Joycelyn Montes Primary Care Provider [phone] Encounter Details Date Type Department Care Team [...] documented as of this encounter Care Teams Correction Officer Relationship Specialty Start Date End Date Joycelyn Montes PA [address] [place] [address] PCP - General 04/01/23 documented as of this encounter
--- OUTSIDE RECORDS SUMMARY | 2025-05-02 10:08 | XMS_ITS | Encounter Summary ---
Author Organization Healthcare Address [address] [place] [address] Care Team Providers Care Seed District Sales Manager Name Role Phone Denis Montesie Mario Alberto LIRA Primary Care Provider [phone] Encounter Details Date Type Department Care Team ([facility] st Contact Info) Description 03/12/2025 Orders Only External Location [address] [place] [address] Provider, External Social History Tobacco Use Types [...] and Family Not on file 03/15/2025 Attends Taoist Services Not on file 03/15 Active Member [...] the past 12 months has th e [employer], gas, oil, or water [employer] threatened to shut off services in your [...] Behavior (Lifetime) No 8:00 AM EDT Shaista Guzamn RN documented as of this encounter Plan [...] with Lay Clark DO on 03/15/25 @ 9002, there is no concern for TB. - Grover Waite 03/13/2025 03/13/2025 03/13/2025 11:31 AM EDT Assessment Noted Time A fall risk assessment has been complete d for the patient 04/07/2024 2:13 PM EDT A Body Mass Index follow-up plan has been documented for the patient 03/17/2025 11:22 AM EDT documented as of this encounter Care Teams Seed District Sales Manager Relationship Specialty Start Date End Date Joycelyn Montes PA [address] [place] [address] PCP - General 04/01/23 documented as of this encounter
--- OUTSIDE RECORDS SUMMARY | 2025-05-02 10:08 | XMS_ITS | Encounter Summary ---
Author Organization Healthcare Address [address] [place] [address] Care Team Providers Care Fitness Director Name Role Phone Denis Montesie Mario Alberto LIRA Primary Care Provider [phone] Encounter Details Date Type Department Care Team ([facility] st Contact Info) Description 03/12/2025 Orders Only External Location [address] [place] [address] Provider, External Social History Tobacco Use Types [...] any time in the past 12 m [facility], were you homeless or living in a snf (including now)? No 03/15/2025 Utilities Answer Date Recorded In the past 12 months has th e [email or web address], gas, oil, or water [employer] threatened to shut off services in your [...] with Lay Clark DO on 03/15/25 @ 9712, there is no concern for TB. - Grover Waite 03/13/2025 03/13/2025 03/13/2025 11:31 AM EDT Assessment Noted Time A fall risk assessment has been complete d for the patient 04/07/2024 2:13 PM EDT A Body Mass Index follow-up plan has been documented for the patient 03/17/2025 11:22 AM EDT documented as of this encounter Care Teams Fitness Director Relationship Specialty Start Date End Date Joycelyn Montes PA [address] [place] [address] PCP - General 04/01/23 documented as of this encounter
--- OUTSIDE RECORDS SUMMARY | 2025-05-02 10:08 | XMS_ITS | Encounter Summary ---
Author Organization Healthcare Address [address] [place] [address] Care Team Providers Care Coupon Collection Clerk Name Role Phone Denis Montesie Mario Alberto LIRA Primary Care Provider [phone] Encounter Details Date Type Department Care Team ([facility] st Contact Info) Description 03/12/2025 Orders Only External Location [address] [place] [address] Provider, External Social History Tobacco Use Types [...] and Family Not on file 03/15/2025 Attends Mormonism Services Not on file 03/15 Active Member [...] the past 12 months has th e [employer], gas, oil, or water [employer] threatened to shut off services in your [...] with Lay Clark DO on 03/15/25 @ 1380, there is no concern for TB. - Grover Waite 03/13/2025 03/13/2025 03/13/2025 11:31 AM EDT Assessment Noted Time A fall risk assessment has been complete d for the patient 04/07/2024 2:13 PM EDT A Body Mass Index follow-up plan has been documented for the patient 03/17/2025 11:22 AM EDT documented as of this encounter Care Teams Coupon Collection Clerk Relationship Specialty Start Date End Date Joycelyn Montes PA [address] [place] [address] PCP - General 04/01/23 documented as of this encounter
--- OUTSIDE RECORDS SUMMARY | 2025-05-02 11:06 | XMS_ITS | CCD ---
Author Organization Unknown Care Team Providers Care Pasta Press Operator Name Role Phone Unavailable Primary Care Provider Unavailabl e Unavailable Chronic Care Management Unavaila ble Summary Purpose DataExchange Insurance Providers Payer name Policy type / Coverage type Covered democrat ID Effective Begin Date Effective End Date [facility] [id number] Unknown Unknown Family History Family History data not found Medication Administered No Medication Administered data Reason For Visit No Reason For Visit data Medical Equipment No Medical Equipment data Advance Directives No Advance Directive data
--- OUTSIDE RECORDS SUMMARY | 2025-05-02 11:07 | XMS_ITS | CCD ---
Author Organization Unknown Care Team Providers Care Health Policy Nurse Name Role Phone Unavailable Primary Care Provider Unavailabl e Unavailable Chronic Care Management Unavaila ble Summary Purpose DataExchange Insurance Providers Payer name Policy type / Coverage type Covered alliance party ID Effective Begin Date Effective End Date [facility] [id number] Unknown Unknown Family History Family History data not found Medication Administered No Medication Administered data Reason For Visit No Reason For Visit data Medical Equipment No Medical Equipment data Advance Directives No Advance Directive data
== END 2025-04-28 23:59 | disposition home or self-care (01) ==
LOC: LAB.DROPOF 05-02 10:01
PROVIDERS: PCP Family Medicine; Visit Provider Family Medicine
DX: N18.32 Chronic kidney disease, stage 3b (principal)
CPT/HCPCS: 80048

== ENCOUNTER 2025-05-30 14:48 | Outpatient (CLI) | payer MEDICARE, SELFPAY ==
[2025-05-30 20:06] LABS: Anion Gap 12.5 mEq/L (5-15); Blood Urea Nitrogen 38 mg/dl (9-20); Calcium 9.6 mg/dl (8.4-10.2); Carbon Dioxide 31 mmol/L (22.0-30.0); Chloride 100 mmol/L (98-107); Creatinine,Serum 2.00 mg/dl (0.66-1.25); Estimated Glomerular Filt Rate 33 ml/min (>60); GFR (African American) 40 ML/MIN (>60); Glucose 120 mg/dl (74-100); Potassium 5.5 mmoL/L (3.5-5.1); Sodium 138 mmol/L (136-145)
--- OUTSIDE RECORDS SUMMARY | 2025-05-31 11:10 | XMS_ITS | Clinical Summary ---
Author Organization [facility] Address [address] [place] [id number] Care Team Providers Care Bulk System Operator Name Role Phone Unavailable Primary Care Provider Unavailabl e Allergies No known active allergies Medications ipratropium (ATROVENT) 0.02 % nebulizer solution Take 500 mcg by nebulization 2 (Two) Times a Day As Needed for Wheezing or Shortness of Air. I 5 Active albuterol (PROAIR HFA) 108 (90 BASE) MCG/ACT inhaler Inhale 2 puffs Every 4 (Four) Hours As Needed for Wheezing. Active aspirin 325 MG tablet Take 325 mg by mouth Daily. Active Cyanocobalamin (VITAMIN B-12 PO) Take 1 tablet by mouth Daily. Active tiZANidine (ZANAFLEX) 4 MG tablet 4 mg Every 8 (Eight) Hours As Needed for Muscle Spasms. 0 7 Active budesonide-form oterol (SYMBICORT) 160-4.5 MCG/ACT inhaler Inhale 2 puffs 2 (Two) Times a Day. 3 inhaler 3 8 Active PROAIR HFA 108 (90 Base) MCG/ACT inhaler inhale 1 puff by mouth every 4 hours if needed 8.5 g 3 8 Active potassium chloride (K-DUR,KLOR-CON ) 20 MEQ CR tablet take 1 tablet by mouth once daily 30 tablet 6 8 Active nitroglycerin (NITROSTAT) 0.[address] 1 tablet under the tongue every 5 minutes for UP TO 3 25 tablet 3 8 Active finasteride (PROSCAR) 5 MG tablet take 1 tablet by mouth once daily 90 tablet 3 9 Active naproxen (NAPROSYN) 500 MG tablet take 1 tablet by mouth twice a day with food 180 tablet 1 9 Active lidocaine (LIDODERM) 5 %Indications:Ot her chronic pain Place 1 patch on the skin as directed by provider Daily. Remove & Discard patch within 12 hours or as directed by MD Rob each 0 Active HYDROcodone-tonya taminophen (NORCO) 10-325 MG per tabletIndicatio ns:Chronic neck pain Take one po every 8 hours prn severe pain 90 tablet 0 Active atorvastatin (LIPITOR) 10 MG tabletIndicatio ns:Hyperlipidem ia take 1 tablet by mouth once daily 90 tablet 3 0 Active amLODIPine (NORVASC) 10 MG tablet take 1 tablet by mouth once daily 90 tablet 1 0 Active tamsulosin (FLOMAX) 0.4 MG capsule 24 hr capsule take 2 capsules by mouth once daily 180 capsule 1 0 Active olmesartan (BENICAR) 5 MG tablet TAKE 1 TABLET BY MOUTH EVERY DAY 90 tablet 1 0 Active gabapentin (NEURONTIN) 400 MG capsuleIndicati ons:Chronic neck pain Take 1 capsule by mouth 4 (Four) Times a Day. 120 capsule 0 Active tadalafil (CIALIS) 5 MG tablet TAKE 1 TABLET BY MOUTH ONCE DAILY 30 tablet 1 Active pantoprazole (PROTONIX) 40 MG EC tablet TAKE 1 TABLET BY MOUTH EVERY DAY 90 tablet 1 1 Active allopurinol (ZYLOPRIM) 300 MG tablet TAKE 1 TABLET BY MOUTH EVERY DAY 90 tablet 1 1 Active Active Problems Problem Noted Date Diagnosed Date Other chronic pain 08/12/2017 Osteoarthritis of left knee 02/18/2017 Preoperative examination 02/07/2017 Tobacco use 02/07/2017 Degenerative arthritis of cervical spine 016 Elevated C-reactive protein (CRP) 04/22/2016 Myalgia 03/11/2016 Elevated creatine kinase level 03/11/2016 Right calf pain 03/11/2016 Stool color abnormal 01/03/2016 History of myocardial infarction 01/03/2016 Benign prostatic hyperplasia with urinary obstru ction 01/03/2016 Coronary artery disease invo lving [place] coronary artery of [place] heart without angina pectoris 01/03/2016 Chronic neck pain 01/03/2016 Moderate COPD (chronic obstructive pulmonary dis ease) 01/03/2016 Prediabetes 01/03/2016 Epigastric pain 01/03/2016 Hyperlipidemia 01/03/2016 Essential hypertension 01/03/2016 Knee pain 01/03/2016 Obstructive sleep apnea syndrome 01/03/2016 Sinusitis 01/03/2016 Sore throat 01/03/2016 Resolved Problems Problem Noted Date Diagnosed Date Resolved Date Type 2 diabetes mellitus wit h circulatory disorder 01/29/2017 08/01/2017 Immunizations Immunization Administration Dates Next Due Flu Vaccine Intradermal Quad 18-64YR 07/27/2017 Fluzone High-Dose 65+YRS 07/23/2016 Influenza, Unspecified 07/10/2018 Pneumococcal Conjugate 13-Valent (PCV13) 017 Pneumococcal Polysaccharide (PPSV23) 08/11/2019 TD Preservative Free (Tenivac) 11/23/2017 Family History Medical History Relation Name Comments Diabetes Mother Diabetes Sister 1 Diabetes Sister 2 Diabetes Sister 3 Relation Name Status Comments Mother Sister 1 Sister 2 Sister 3 Social History Tobacco Use Types Packs/Day Years Used Date Smoking Tobacco: Every Day Cigarettes 1 45 Smokeless Tobacco: Never Alcohol Use Standard Drinks/Week Comments No 0 (1 standard drink = 0.6 oz pur e alcohol) PHQ-2 Answer Date Recorded PHQ-2 Score 0 09/16/2018 Abuse Screen Answer Date Recorded Unsafe at Home or Work/School Not on file Feels Threatened by Someone? Not on file 06/2023 Does Anyone Keep You from Co ntacting Others or Doint Things Outside the Home? Not on file 08/04/2023 Physical Sign of Abuse Present Not on file 1 Housing Stability Answer Date Recorded Current Living Arrangements Not on file 06/2023 Potentially Unsafe Housing Conditions Not on emiliana e 08/04/2023 Family and Community Support Answer Rodolfo e Recorded Help with Day-to-Day Activities Not on file 08/04/2023 Lonely or Isolated Not on file 08/04/2023 Employment Answer Date Recorded Do you want help finding or keeping work or a monserrat b? Not on file 08/04/2023 Disabilities Answer Date Recorded Concentrating, Remembering, or Making Decisions Difficulty Not on file 08/04/2023 Doing Errands Independently Difficulty Not on fi le 08/04/2023 Education Answer Date Recorded Help with school or training? Not on file Preferred Language Not on file 08/04/2023 Sex and Gender Information Value Date Recorded Sex Assigned at Not on file Legal Sex Male 12:32 PM EDT Gender Identity Not on file Sexual Orientation Not on file Last Filed Vital Signs Vital Sign Reading Time Taken Comments Blood Pressure 108/60 11/19/2019 8:46 AM EST Pulse 67 11/19/2019 8:46 AM EST Temperature 36.5 C (97.7 F) 11/19/2019 8:46 AM EST Respiratory Rate 16 11/19/2019 8:46 AM EST Oxygen Saturation 93% 11/19/2019 8:46 AM EST Inhaled Oxygen Concentration - - Weight 97.3 kg (214 lb 9.6 oz) 11/19/2019 8:46 A M EST Height 167.6 cm (5' 6 ) 11/19/2019 8:46 AM EST Body Mass Index 34.64 11/19/2019 8:46 AM EST Plan of Treatment Health Maintenance Due Date Last Done Comments COLON CANCER SCREENING 5 YEA R SIGMOIDOSCOPY 1997 [address] COLONOGRAPHY 1997 FECAL OCCULT BLOOD TEST 1997 FIT Testing (1 year) 1997 ZOSTER VACCINE (1 of 2) 2002 ANNUAL PHYSICAL 12/15/2015 PT PLAN OF CARE 06/08/2017 03/10/2017 AAA SCREEN ONCE 2017 LIPID PANEL 08/02/2020 08/02/2019, 07/0 02/2019, 10/23/2018, Additional history exists COLOGUARD 11/19/2022 11/19/2019, 11/19/2019 COVID-19 Vaccine ( - 2023-2 5 season) 2024 INFLUENZA VACCINE 07/27/2025 07/28/2019, , 07/10/2018, Additional history exists TDAP/TD VACCINES (2 - Tdap) 11/23/2027 11/23/2017 HEPATITIS C SCREENING Completed 07/22/2018 Pneumococcal Vaccine 50+ Completed 019, 07/27/2017, 07/01/2017 COLONOSCOPY Discontinued COLORECTAL CANCER SCREENING Discontinued Medical Devices Implanted Type Area Telephone Betting Clerk Device Identifier Shelf Expiration Date Model / Serial / Lot Implant Implant Left: Ankle Description:hardware in left leg Cmt Bone Smartmix Gmv Gent 40gr - [id number] Implanted:Qty : 2 on 02/18/2017 by Lucho Cornelius MD at [facility] Implant Left: Knee DEPUY 06/16/2018 [id number] / / [id number] Pat Triath Asym X3 09f59hm - [id number] Implanted:Qty : 1 on 02/18/2017 by Lucho Cornelius MD at [facility] Implant Left: Patella JUAN MANUEL HENRY 09/23/2021 [id number] / / [id number] Insrt Tib Triath Ps X3 No6 13mm - [id number] Implanted:Qty : 1 on 02/18/2017 by Lucho Cornelius MD at [facility] Implant Left: Knee JUAN MANUEL HENRY 06/15/2020 [id number] / / [id number] Baseplt Tib Triath Cemnt No6 - [id number] Implanted:Qty : 1 on 02/18/2017 by Lucho Cornelius MD at [facility] Implant Left: Knee JUAN MANUEL HENRY 09/06/2020 [id number] / / [id number] Comp Fem Triath Ps Cmt No6 Lt - [id number] Implanted:Qty : 1 on 02/18/2017 by Lucho Cornelius MD at [facility] Implant Left: Knee JUAN MANUEL HENRY 06/15/2020 [id number] / / [id number] Totl Kn Hi Demand Juan Manuel - [id number] Implanted:Qty : 1 on 02/18/2017 by Lucho Cornelius MD at [facility] Implant Left: Patella JUAN MANUEL HENRY CAPKNTOTLHID [id number] / / Promus Stent Implanted:Qty : 1 on 08/13/2008 by Filippo Obrien MD Stent [employer] [id number] / [id number] Description:Promus Stent RCA Procedures Procedure Name Priority Date/Time Associated Diagnosis Comments SCANNED - COLOGUARD 11/19/2019 LIPID PANEL WITH LDL/HDL RATIO Routine 08/02/2019 8:58 AM EDT Prediabetes Hyperlipidemia, unspecified hyperlipidemia type Elevated C-reactive protein (CRP) HEPATITIS C ANTIBODY Routine 07/22/2018 8:55 AM EDT Medicare welcome exam SCANNED - INFLUENZA 07/10/2018 from Last 3 Months or Most Recently Relevant to Health Maintenance Results * SCANNED - COLOGUARD (11/19/2019) [facility] LAB BLOOD ORDERABLES Final Re sult * Lipid Panel With LDL / HDL Ratio (08/02/2019 8:58 AM EDT) Total Cholesterol 139 100 - 199 mg/dL [facility] Triglycerides 89 0 - 149 mg/dL [facility] HDL Cholesterol 47 >39 mg/dL [facility] VLDL Cholesterol 18 5 - 40 mg/dL [facility] LDL Cholesterol 74 0 - 99 mg/dL [facility] LDL/HDL Ratio 1.6 0.0 - 3.6 ratio [facility] Comment: LDL/HDL Ratio Men Women 1/2 Avg.Risk 1.0 1.5 Avg.Risk 3.6 3.2 2X Avg.Risk 6.2 5.0 3X Avg.Risk 8.0 6.1 Blood 08/02/2019 8:58 AM EDT 08/02/2019 Narrative [facility] - 08/03/2019 12:09 PM EDT Performed at: 01 - [address] [id number] Bench Precision Assembler: Golden Keller PhD, Phone: [phone] Patient Fasting: Y Kylie Garcia MD LAB BLOOD ORDERABLES Final Result [facility] [address] [place] [address], [facility] [address] [place] [address], * Hepatitis C Antibody (07/22/2018 8:55 AM EDT) Pathologist [facility] Hep C Virus Ab <0.1 0.0 - 0.9 s/co ratio [facility] Comment: Negative: < 0.8 Indeterminate: 0.8 - 0.9 Positive: > 0.9 The CDC recommends that a positive HCV antibody result be followed up with a HCV Nucleic Acid Amplification test (472197). Blood 07/22/2018 8:55 AM EDT 07/22/2018 Narrative [facility] ([facility]BUL[facility]) - 07/23/2018 7:12 AM EDT Performed at: 02 - [facility] [address] [place], [place] [id number] Bench Precision Assembler: Golden Keller PhD, Phone: [phone] Patient Fasting: Y Kylie Garcia MD LAB BLOOD ORDERABLES Final Result [facility] [address] [place] [address], [facility] [address] [place] [address], * SCANNED - INFLUENZA (07/10/2018) Kylie Garcia MD CHART REVIEW TABS Final Result from Last 3 Months or Most Recently Relevant to Health Maintenance [place] [address] [place] [address] MEDICARE ADVANTAGE Advance Directives * Full Code (Latest Code Status on File) Date Activated Date Inactivated Comments 02/18/2017 1:54 PM 02/20/2017 3:33 PM
--- OUTSIDE RECORDS SUMMARY | 2025-05-31 11:10 | XMS_ITS | Clinical Summary ---
Author Organization [facility] Address [facility] [place] [address] Care Team Providers Care Peoplesoft Programmer Name Role Phone SimonJoycelyn PANKAJ Primary Care Provider [phone] Allergies Active Allergy Reactions Criticality Noted Date [...] times a day. 4 Active HYDROcodone-tonya taminophen ([place]) 10-325 MG tablet Take 1 tablet by [...] Department Care Team Description 03/25/2025 Patient Outreach [address], [facility] [address] [place] [address] Brinda Pineda LPN Follow-up 03/18/2025 Patient Outreach [address], [facility] [address] [place] [address] Brinda Pineda LPN TCM Call 03/14/2025 Travel 03/13/2025 Travel 03/12/2025 8:41 PM EDT - 03/17/2025 11:49 AM EDT Hospital Encounter [facility] A Inpatient [address] [place] [address] The, MD Choco Blanchard, MD Brain Gaytan, [...] 03/12/2025 Orders Only External Location [address] [place] [address] Provider, External 03/12/2025 Orders Only External Location [address] [place] [address] Provider, External 03/12/2025 Orders Only External Location [address] [place] [address] Provider, External 03/12/2025 Orders Only External Location [address] [place] [id number] Provider, External 03/12/2025 Orders Only External Location [address] [place] [address] Provider, External from Last 3 [...] and Family Not on file 03/15/2025 Attends [employer] Not on file 03/15 Active Member [...] any time in the past 12 m [facility], were you homeless or living in a [place] health care facility (including now)? No 03/15/2025 Utilities Answer Date Recorded In the past 12 months has e [employer], gas, oil, or water company threatened to [...] exists [facility]Medicare Annual Wellness (AWV) 05/07/2020 05/07/2019 [id number] Vaccine (5 - Pfizer risk season) 2025 [...] this topic Medical Devices Implanted Type Area [employer] Repairer Device Identifier Shelf Expiration Date Model / Serial / Lot Stent Ureteral Double Pigtail Pos 6fr 24cm - Sn/A - [id number] Implanted:Qty: 1 on 04/27/2024 by Malik Dunaway MD at [facility] Stent Right: [id number] 10/09/2025 [id number] / N/A / [id number] Procedures Procedure Name Priority Date/Time Associated Diagnosis [...] UNSOLICITED RESULTS Routine 03/14/2025 12:03 PM EDT NM CRITICAL CARE, E/M 30-74 MINUTES Routine 03/14/2025 [...] CO2 MONITORING Routine 03/13/2025 8:00 AM EDT NM CRITICAL CARE, E/M 30-74 MINUTES Routine 03/13/2025 [...] UNSOLICITED RESULTS Routine 03/12/2025 8:41 PM EDT NM CRITICAL CARE, ADDL 30 MIN Routine 03/12/2025 [...] of21 resultswithin the time period is included. [facility] POCT Glucose 99 74 - 99 mg/dL 03/17/2025 8:33 AM EDT [facility] Comment:Accuracy of a glucos e result [...] Comment 03/17/2025 8:33 AM EDT [facility] Mold Stacker ID Lindsey Zamora 03/17/2025 8:33 AM EDT [facility] Device ID [id number] 03/17/2025 8:33 AM EDT [facility] Specimen Type POC Capillary 03/17/2025 8:33 AM EDT [facility] Blood Capillary blood specimen / Unknown 03/17/2025 8:31 AM EDT 03/17/2025 8:33 AM EDT us Bernardo Chavez MD LAB POINT OF CARE TE ST DOCKED DEVICE UNSOLICITED RESULTS Final Result Performing Organization Address City/State/[facility] de Phone Number [facility] [address] [place] [address] * (ABNORMAL) CBC W/O Differential (03/17/2025 5:29 AM EDT) Only the most recent of5 resultswithin the time period is included. WBC Count 7.19 3.70 - 10.30 10*3/uL LAB HEMATOLOGY METHOD 03/17/2025 5:52 AM EDT [facility] RBC Count 4.43(L) 4.60 - 6.10 10*6/uL LAB HEMATOLOGY METHOD 03/17/2025 5:52 AM EDT [facility] HGB 11.9(L) 13.7 - 17.5 g/dL LAB HEMATOLOGY METHOD 03/17/2025 5:52 AM EDT [facility] HCT 39.1(L) 40.0 - 51.0 % LAB HEMATOLOGY METHOD 03/17/2025 5:52 AM EDT [facility] Platelet Count 188 155 - 369 10*3/uL LAB HEMATOLOGY METHOD 03/17/2025 5:52 AM EDT [facility] MCV 88 79 - 98 fL LAB HEMATOLOGY METHOD 03/17/2025 5:52 AM EDT [facility] MCH 26.9 26.0 - 32.0 pg LAB HEMATOLOGY METHOD 03/17/2025 5:52 AM EDT [facility] MCHC 30.4(L) 30.7 - 35.5 g/dL LAB HEMATOLOGY METHOD 03/17/2025 5:52 AM EDT [facility] RDW 16.7(H) 11.5 - 14.5 % LAB HEMATOLOGY METHOD 03/17/2025 5:52 AM EDT [facility] MPV 10.1 8.8 - 12.5 fL LAB HEMATOLOGY METHOD 03/17/2025 5:52 AM EDT [facility] nRBC 0.0 <=0.0 per 100 WBCs LAB HEMATOLOGY METHOD 03/17/2025 5:52 AM EDT [facility] Blood Venous blood specimen / Unknown Venipuncture / Unknown 03/17/2025 5:29 AM EDT 03/17/2025 5:44 AM EDT us Gt De La Paz MD LAB BLOOD ORDERABLES Final Res ult [facility] [address] [place] [address] * (ABNORMAL) Blood gas panel, venous (03/17/2025 5:29 AM EDT) Only the most recent of7 resultswithin the time period is included. pH, Venous 7.35 7.32 - 7.43 LAB HEMATOLOGY METHOD 03/17/2025 5:39 AM EDT [facility] pCO2, Venous 59(H) 40 - 55 mmHg LAB HEMATOLOGY METHOD 03/17/2025 5:39 AM EDT [facility] pO2, Venous 71(H) 25 - 40 mmHg LAB HEMATOLOGY METHOD 03/17/2025 5:39 AM EDT [facility] SO2, Measured, Venous 95(H) 65 - 80 % LAB HEMATOLOGY METHOD 03/17/2025 5:39 AM EDT [facility] Base Excess, Venous 5.5(H) -2.0 - 3.0 mmol/L LAB HEMATOLOGY METHOD 03/17/2025 5:39 AM EDT [facility] Bicarbonate, Calculated, Venous 33(H) 22 - 26 mmol/L LAB HEMATOLOGY METHOD 03/17/2025 5:39 AM EDT [facility] Hematocrit, Whole Blood 37.2(L) 40.0 - 51.0 % LAB HEMATOLOGY METHOD 03/17/2025 5:39 AM EDT [facility] Sodium, Whole Blood 139 136 - 145 mmol/L LAB HEMATOLOGY METHOD 03/17/2025 5:39 AM EDT [facility] Potassium, Whole Blood 4.6 3.6 - 4.9 mmol/L LAB HEMATOLOGY METHOD 03/17/2025 5:39 AM EDT [facility] Chloride, Whole Blood 103 97 - 107 mmol/L LAB HEMATOLOGY METHOD 03/17/2025 5:39 AM EDT [facility] Glucose, Whole Blood 88 74 - 99 mg/dL LAB HEMATOLOGY METHOD 03/17/2025 5:39 AM EDT [facility] Lactate, Venous, Whole Blood 0.8 0.5 - 2.2 mmol/L LAB HEMATOLOGY METHOD 03/17/2025 5:39 AM EDT [facility] Ionized Calcium, Whole Blood 4.6 4.6 - 5.1 mg/dL LAB HEMATOLOGY METHOD 03/17/2025 5:39 AM EDT [facility] Blood Venous blood specimen / Unknown Venipuncture / Unknown 03/17/2025 5:29 AM EDT 03/17/2025 5:37 AM EDT Delta Wilhelm MD LAB BLOOD ORDERABLES Final Result Performing Organization Address City/State/[facility] Co de Phone Number [facility] [address] [place] [address] * (ABNORMAL) Basic metabolic panel (03/17/2025 5:29 AM EDT) Only the most recent of4 resultswithin the time period is included. Glucose, Plasma 90 74 - 99 mg/dL 03/17/2025 6:12 AM EDT [facility] BUN, Plasma 17 8 - 23 mg/dL 03/17/2025 6:12 AM EDT [facility] Creatinine, Plasma 1.31(H) 0.70 - 1.20 mg/dL 03/17/2025 6:12 AM EDT [facility] BUN/Creatinine Ratio 13 03/17/2025 6:12 AM EDT [facility] Sodium, Plasma 139 136 - 145 mmol/L 03/17/2025 6:12 AM EDT [facility] Potassium, Plasma 4.8 3.6 - 4.9 mmol/L 03/17/2025 6:12 AM EDT [facility] Comment:Hemolyzed, result ma y be falsely increased. Chloride, Plasma 102 97 - 107 mmol/L 03/17/2025 6:12 AM EDT [facility] CO2, Plasma 28 22 - 29 mmol/L 03/17/2025 6:12 AM EDT [facility] Anion Gap 9 6 - 16 mmol/L 03/17/2025 6:12 AM EDT [facility] Total Calcium, Plasma 8.7(L) 8.9 - 10.2 mg/dL 03/17/2025 6:12 AM EDT [facility] eGFRcr 57.8 mL/min/1.7 3m*2 03/17/2025 6:12 AM EDT [facility] Comment:Reported eGFRcr in m L/min/1.73m2 is based the CKD-EPI 2020 equation that does not use a race coefficient. Blood Venous blood specimen / Unknown Venipuncture / Unknown 03/17/2025 5:29 AM EDT 03/17/2025 5:40 AM EDT us Gt De La aPz MD LAB BLOOD ORDERABLES Final Res ult [facility] [address] [place] [address] * EEG (03/14/2025 1:31 PM EDT) Anatomical [...] injection 5,000 Units 5,000 Units Subcutaneous q8h [facility] Liz Echevarria MD 5,000 Units at 03/14/25 0621 insulin regular (HumuLIN R,NovoLIN R) 100 units/mL injection - Correction - Standard Dose 0-5 Units Subcutaneous q6h [facility] Lay Clark DO ipratropium-albuterol (Duo-Neb) [...] Wilhelm MD NEUROLOGY ORDERABLES Final Result * NM CRITICAL CARE, E/M 30-74 MINUTES (03/14/2025 7:18 [...] * Triglycerides (03/14/2025 12:34 AM EDT) Pathologist [facility] Triglycerides, Plasma 114 <150 mg/dL 03/14/2025 1:11 AM EDT [facility] Comment: Triglyceride Reference Range (age >17 years): Desirable: <150 mg/dL Borderline high: 150 to 199 mg/dL High: 200 to 499 mg/dL Very high: >499 mg/dL Increased risk of pancreatitis: >1000 mg/dL Fasting greater than or equal to 12 hours? Yes 03/14/2025 1:11 AM EDT [facility] Blood Venous blood specimen / Unknown Venipuncture / Unknown 03/14/2025 12:34 AM EDT 03/14/2025 12:44 AM EDT us Staci Castro LAB BLOOD ORDERABLES Final Resul t [facility] [address] [place] [address] * Bronchoalveolar Lavage Cell Count W/ Diff (03/13/2025 11:34 AM EDT) Pathologist [facility] Neutrophils %, BAL 10 % LAB HEMATOLOGY METHOD 03/13/2025 5:20 PM EDT [facility] Lymphocytes %, BAL 0 % LAB HEMATOLOGY METHOD 03/13/2025 5:20 PM EDT [facility] Monocytes/Macrop hages %, BAL 84 % LAB HEMATOLOGY METHOD 03/13/2025 5:20 PM EDT [facility] Eosinophils %, BAL 0 % LAB HEMATOLOGY METHOD 03/13/2025 5:20 PM EDT [facility] Basophils %, BAL 0 % LAB HEMATOLOGY METHOD 03/13/2025 5:20 PM EDT [facility] Squamous Cells %, BAL 0 % LAB HEMATOLOGY METHOD 03/13/2025 5:20 PM EDT [facility] Bronchial Cells %, BAL 6 % LAB HEMATOLOGY METHOD 03/13/2025 5:20 PM EDT [facility] Other Cells %, BAL 0 % LAB HEMATOLOGY METHOD 03/13/2025 5:20 PM EDT [facility] Comment, BAL None LAB HEMATOLOGY METHOD 03/13/2025 5:20 PM EDT [facility] Comment:This is an appended report. These results have been appended to a previously preliminary verified report. Total Nucleated Cell Count, BAL 272 uL LAB HEMATOLOGY METHOD 03/13/2025 5:20 PM EDT [facility] Comment:Clot present, may af fect results. Test performed by manual method. Bronchoalveolar Lavage Structure of middle lobe of right lung / Unknown 03/13/2025 11:34 AM EDT 03/13/2025 11:46 AM EDT us Gt De La Paz MD LAB BODY FLUIDS AND STOOLS ORD ERABLES Final Result Performing Organization Address City/[facility] Co de Phone Number [facility] [address] [place] [address] * Fungal Culture, Respiratory and ADAIR (03/13/2025 11:34 AM EDT) Culture No Fungal Growth at 6 Weeks 04/24/2025 10:12 AM EDT [facility] ADAIR No fungal elements seen 04/24/2025 10:12 AM EDT [facility] Bronchoalveolar Lavage Bronchoalveolar lavage fluid specimen / Unknown 03/13/2025 11:34 AM EDT 03/13/2025 1:08 PM EDT us Gt De La Paz MD LAB MICROBIOLOGY - GENERAL ORD ERABLES Final Result [facility] [address] [place] [address] * AFB Culture, Respiratory Source and Acid Fast Stain (03/13/2025 11:34 AM EDT) AFB Culture No Mycobacterial Growth at 6 Weeks 04/25/2025 1:31 PM EDT [facility] Acid Fast Stain No acid fast bacilli seen 04/25/2025 1:31 PM EDT [facility] Bronchoalveolar Lavage Bronchoalveolar lavage fluid specimen / Unknown 03/13/2025 11:34 AM EDT 03/13/2025 1:08 PM EDT Gt De La Paz MD LAB MICROBIOLOGY - GENERAL ORD ERABLES Final Result [facility] [address] [place] [address] * BAL Comprehensive Respiratory Panel by PCR (03/13/2025 11:34 AM EDT) BAL Comprehensive PCR Result Not Detected for all analytes Not Detected for all analytes 03/13/2025 1:44 PM EDT [facility] Bronchoalveolar Lavage Bronchoalveolar lavage fluid specimen / Unknown 03/13/2025 11:34 AM EDT 03/13/2025 1:08 PM EDT Narrative [facility] - 03/13/2025 1:44 PM EDT [...] developed and its performance characteristics determined by [facility] as appropriate for clinical purposes. This assay has not been cleared or approved by the FDA, but is performed in a CLIA regulated laboratory that is performed in a CLIA regulated laboratory that is qualified to perform high-complexity testing. The [facility] is certified under the Clinical Laboratory Improvement Amendments of 1988 (CLIA-88) as qualified to perform high complexity clinical laboratory testing. Gt De La Paz MD LAB MICROBIOLOGY - GENERAL ORD ERABLES Final Result [facility] [address] [place] [address] * Pneumocystis Jirovecii by PCR (03/13/2025 11:34 AM EDT) Pathologist [facility] P. Jirovecii by PCR Not Detected 03/17/2025 12:16 AM EDT [facility] ([place]) P. Jirovecii Source BAL 03/17/2025 12:16 AM EDT [facility] ([place]) Bronchoalveolar Lavage Bronchoalveolar lavage fluid specimen / Unknown 03/13/2025 11:34 AM EDT 03/13/2025 11:46 AM EDT Narrative [facility] ([place]) - 03/17/2025 12:16 AM EDT NOT DETECTED - A negative result does not rule out the presence of PCR inhibitors in the patient specimen or assay specific nucleic acid in concentrations below the level of detection by the assay. This test was developed and its performance characteristics determined by [employer]. It has not been cleared or approved by the US Food and Drug Administration. This test was performed in a CLIA certified laboratory and is intended for clinical purposes. Performed By: [facility] [facility] [address] [place] [id number] Shift Mgr: Filippo Cortes MD, PhD CLIA Number: [id number] us Gt De La Paz MD LAB REF LAB BLOOD AND FLUID OR D Final Result [facility] ([facility]) [address] [place] [address] * Body fluid, cytospin, pathologist interpretation (03/13/2025 11:34 AM EDT) Specimen Type Bronchoalveolar Lavage LAB HEMATOLOGY METHOD 03/14/2025 3:40 PM EDT [facility] Specimen Source, Body Fluid Lung, Right Middle Lobe LAB HEMATOLOGY METHOD 03/14/2025 3:40 PM EDT [facility] Clinical Diagnosis, Body Fluid Concern for R sided post-obstructive pneumonia in setting of pulmonary mass LAB HEMATOLOGY METHOD 03/14/2025 3:40 PM EDT [facility] Interpretation , Body Fluid No evidence of malignancy Predominantly alveolar macrophages Mild acute inflammatory cells A resident was involved in the service. I attest I examined the relevant preparations for the specimens and confirmed the diagnosis or interpretation. 03/14/2025 3:40 PM EDT [facility] Pathologist Signature, Body Fluid 03/14/2025 3:40 PM EDT [facility] Comment:Reviewed by: Mónica colin MD LAB CP ASR DISCLAIMER Yes 03/14/2025 3:40 PM EDT [facility] Bronchoalveolar Lavage Structure of middle lobe of right lung / Unknown 03/13/2025 11:34 AM EDT 03/13/2025 11:46 AM EDT us Gt De La Paz MD LAB BODY FLUIDS AND STOOLS ORD ERABLES Final Result [facility] [address] [place] [address] * Aspergillus galactomannan antigen (03/13/2025 11:34 AM EDT) Aspergillus galactomannan EIA (BAL) 0.051 <0.500 03/15/2025 6:38 PM EDT [facility]) Comment: Interpretation: Patients with an index value [...] Aspergillus Galactomannan EIA is a product of [employer] and is FDA approved for in vitro diagnostic use. Testing Performed at: [facility] [address] [place] [address], [address] [place] [address] Circular Knitter: Dominick Gonsalez, PhD [facility] (ABB) CLIA # [id number] FLAG Interpretation: A = Abnormal, H = High, L = Low Bronchoalveolar Lavage Bronchoalveolar lavage fluid specimen / Unknown 03/13/2025 11:34 AM EDT 03/13/2025 11:46 AM EDT Narrative [facility] ([place]) - 03/15/2025 6:38 PM EDT Release to patient in [facility]->Immediate us Gt De La Paz MD LAB BODY FLUIDS AND STOOLS ORD ERABLES Final Result [facility] ([place]) * Quantitative BAL/PAL/Bronch Wash Culture and Gram StainBronchoalveolar Lavage, Right Middle Lobe (03/13/2025 11:34 AM EDT) Culture No growth at day 2 2024 8:18 AM EDT [facility] Gram Stain Result No polymorphonuclear leukocytes seen 03/15/2025 8:18 AM EDT [facility] Gram Stain Result No organisms seen 03/15/2025 8:18 AM EDT [facility] Bronchoalveolar Lavage Bronchoalveolar lavage fluid specimen / Unknown 03/13/2025 11:34 AM EDT 03/13/2025 1:08 PM EDT us Gt De La Paz MD LAB MICROBIOLOGY - GENERAL ORD ERABLES Final Result [facility] [address] [place] [address] * Non-Gynecologic Cytology, Fluid (03/13/2025 11:34 AM EDT) Case Report Cytology Case: [id number] Authorizing Provider: Gt De La Paz MD Collected: 03/13/2025 1134 Ordering Location: [facility] A Inpatient Received: 03/14/2025 0828 Pathologist: Kai Gilbert MD Specimen: Bronchial Washing, Right Middle Lobe, BRONCHIAL WASHING, RIGHT MIDDLE LOBE 03/14/2025 5:45 PM EDT [facility] Final Diagnosis A. BRONCHIAL WASHING, RIGHT MIDDLE LOBE - NO EVIDENCE OF MALIGNANCY. NO VIRAL CHANGES IDENTIFIED, PREDOMINANTLY MACROPHAGES, GMS STAIN IS NEGATIVE FOR ORGANISMS. 03/14/2025 5:45 PM EDT [facility] at 1745 EDT Clinical History possible malignancy 03/14/2025 5:45 PM EDT [facility] Previous Cancer No 5:45 PM EDT [facility] Gross Description A. BRONCHIAL WASHING, RIGHT MIDDLE LOBE 20 ml's hazy fluid processed as thin prep and GMS 03/14/2025 5:45 PM EDT [facility] Non-Gynecologica l (Select Specimen Source) Specimen from lung obtained by bronchial washing procedure / Unknown 03/13/2025 11:34 AM EDT 03/14/2025 8:28 AM EDT us Gt De La Paz MD LAB CYTOLOGY ORDERABLES Final Result [facility] [address] [place] [address] * BEDSIDE BRONCHOSCOPY (03/13/2025 10:30 AM EDT) Narrative Gt De La Paz MD - 03/13/2025 10:30 AM EDT Gt De La Paz MD 03/14/2025 9:30 AM Bronchoscopy Performed by: Gt De La Paz MD Authorized by: Gt De La Paz MD us Gt De La Paz MD IN CLINIC/BEDSIDE ORDERABLES E dited Result - Final * NM CRITICAL CARE, E/M 30-74 MINUTES (03/13/2025 7:06 [...] LAB HEMATOLOGY METHOD 03/13/2025 1:12 AM EDT [facility] Blood Venous blood specimen / Unknown Venipuncture / Unknown 03/13/2025 12:57 AM EDT 03/13/2025 1:09 AM EDT Result [facility] Delta Wilhelm MD LAB BLOOD ORDERABLES Final Result Performing Organization Address [facility]/ZIP Co de Phone Number [facility] [address] [place] [address] * Ionized calcium, serum (03/13/2025 12:57 AM EDT) Ionized Calcium, Serum 4.9 4.6 - 5.3 mg/dL LAB HEMATOLOGY METHOD 03/13/2025 1:45 AM EDT [facility] Blood Venous blood specimen / Unknown Venipuncture / Unknown 03/13/2025 12:57 AM EDT 03/13/2025 1:12 AM EDT Result [facility] Delta Wilhelm MD LAB BLOOD ORDERABLES Final Result [facility] [address] [place] [address] * Phosphorus, Plasma (03/13/2025 12:57 AM EDT) Phosphorus, Plasma 2.8 2.5 - 4.5 mg/dL 03/13/2025 1:41 AM EDT [facility] Blood Venous blood specimen / Unknown Venipuncture / Unknown 03/13/2025 12:57 AM EDT 03/13/2025 1:12 AM EDT Delta Wilhelm MD LAB BLOOD ORDERABLES Final Result Performing Organization Address City/[facility]/ZIP Co de Phone Number [facility] [address] [place] [address] * (ABNORMAL) Magnesium, Plasma (03/13/2025 12:57 AM EDT) Only the most recent of2 resultswithin the time period is included. Magnesium, Plasma 1.7(L) 1.9 - 2.4 mg/dL 03/13/2025 1:41 AM EDT [facility] Blood Venous blood specimen / Unknown Venipuncture / Unknown 03/13/2025 12:57 AM EDT 03/13/2025 1:12 AM EDT Delta Wilhelm MD LAB BLOOD ORDERABLES Final Result Performing Organization Address [facility] Co de Phone Number [facility] [address] [place] [address] * (ABNORMAL) Comprehensive metabolic panel (03/13/2025 12:57 AM EDT) Only the most recent of2 resultswithin the time period is included. Glucose, Plasma 148(H) 74 - 99 mg/dL 03/13/2025 1:41 AM EDT [facility] BUN, Plasma 31(H) 8 - 23 mg/dL 03/13/2025 1:41 AM EDT [facility] Creatinine, Plasma 2.10(H) 0.70 - 1.20 mg/dL 03/13/2025 1:41 AM EDT [facility] BUN/Creatinine Ratio 15 03/13/2025 1:41 AM EDT [facility] Sodium, Plasma 136 136 - 145 mmol/L 03/13/2025 1:41 AM EDT [facility] Potassium, Plasma 4.5 3.6 - 4.9 mmol/L 03/13/2025 1:41 AM EDT [facility] Chloride, Plasma 99 97 - 107 mmol/L 03/13/2025 1:41 AM EDT [facility] CO2, Plasma 25 22 - 29 mmol/L 03/13/2025 1:41 AM EDT [facility] Anion Gap 12 6 - 16 mmol/L 03/13/2025 1:41 AM EDT [facility] Total Calcium, Plasma 9.2 8.9 - 10.2 mg/dL 03/13/2025 1:41 AM EDT [facility] Total Protein 6.5 6.3 - 7.9 g/dL 03/13/2025 1:41 AM EDT [facility] Albumin, Plasma 3.9 3.5 - 5.2 g/dL 03/13/2025 1:41 AM EDT [facility] AST, Plasma 16 10 - 50 U/L 03/13/2025 1:41 AM EDT [facility] ALT, Plasma 10 10 - 50 U/L 03/13/2025 1:41 AM EDT [facility] Alkaline Phosphatase, Plasma 77 40 - 115 U/L 03/13/2025 1:41 AM EDT [facility] Total Bilirubin, Plasma 0.3 0.2 - 1.1 mg/dL 03/13/2025 1:41 AM EDT [facility] eGFRcr 32.8 mL/min/1.7 3m*2 03/13/2025 1:41 AM EDT [facility] Comment:Reported eGFRcr in m L/min/1.73m2 is based the CKD-EPI 2020 equation that does not use a race coefficient. Blood Venous blood specimen / Unknown Venipuncture / Unknown 03/13/2025 12:57 AM EDT 03/13/2025 1:12 AM EDT us Delta Wilhelm MD LAB BLOOD ORDERABLES Final Result [facility] [address] [place] [address] * Urinalysis Microscopic Examination (03/12/2025 11:05 PM EDT) Urine Urine specimen obtained by clean catch procedure / Unknown Non-blood Collection / Unknown 03/12/2025 11:05 PM EDT 03/12/2025 11:11 PM EDT Delta Wilhelm MD LAB URINE ORDERABLES Final Result [facility] [address] [place] [address] * (ABNORMAL) Opiates Confirm Urine (03/12/2025 11:05 PM EDT) Codeine <50 <50 ng/mL 03/15/2025 5:06 PM EDT [facility] Codeine Glucuronide <50 <50 ng/mL 03/15/2025 5:06 PM EDT [facility] Desmethyl Tramadol <50 <50 ng/mL 03/15/2025 5:06 PM EDT [facility] EDDP - Methadone Metabolite <50 <50 ng/mL 03/15/2025 5:06 PM EDT [facility] Hydrocodone 460(H) <50 ng/mL 03/15/2025 5:06 PM EDT [facility] Hydromorphone 177(H) <50 ng/mL 03/15/2025 5:06 PM EDT [facility] Hydromorphone Glucuronide >1,000(H) <50 ng/mL 03/15/2025 5:06 PM EDT [facility] Comment:Metabolite of Hydrom orphone Meperidine <50 <50 ng/mL 03/15/2025 5:06 PM EDT [facility] Methadone <50 <50 ng/mL 03/15/2025 5:06 PM EDT [facility] 6 Monoacetyl morphine <10 <10 ng/mL 03/15/2025 5:06 PM EDT [facility] Morphine <50 <50 ng/mL 03/15/2025 5:06 PM EDT [facility] Morphine Glucuronide <50 <50 ng/mL 03/15/2025 5:06 PM EDT [facility] Comment:Metabolite of Morphi ne Naloxone <50 <50 ng/mL 03/15/2025 5:06 PM EDT [facility] Naloxone Glucuronide <50 <50 ng/mL 03/15/2025 5:06 PM EDT [facility] Comment:Metabolite of Naloxo ne Normeperidine <50 <50 ng/mL 03/15/2025 5:06 PM EDT [facility] Tramadol <50 <50 ng/mL 03/15/2025 5:06 PM EDT [facility] Urine Urine specimen obtained by clean catch procedure / Unknown Non-blood Collection / Unknown 03/12/2025 11:05 PM EDT 03/12/2025 11:11 PM EDT Narrative [facility] - 03/15/2025 5:06 PM EDT Drug analysis is confirmed by LC-MS/MS (LC Tandem Mass Spectrometry) on Urine specimens. This test was developed and its performance characteristics determined by [facility]. It has not been cleared or approved by the FDA. The laboratory is regulated under CLIA as qualified to perform high-complexity testing. This test is used for clinical purposes. Testing is performed at the [facility], [facility] Laboratory. Delta Wilhelm MD LAB URINE ORDERABLES Final Result [facility] [address] [place] [address] * Drug Abuse Screen Urine (03/12/2025 11:05 PM EDT) Amphetamine Screen Urine Negative Cutoff: 500 ng/mL 03/12/2025 11:44 PM EDT [facility] Benzodiazepines Screen Urine Negative Cutoff: 200 ng/mL 03/12/2025 11:44 PM EDT [facility] Cannabinoid Screen Urine Negative Cutoff: 50 ng/mL 03/12/2025 11:44 PM EDT [facility] Cocaine Screen Urine Negative Cutoff: 300 ng/mL 03/12/2025 11:44 PM EDT [facility] Barbiturate Screen Urine Negative Cutoff: 200 ng/mL 03/12/2025 11:44 PM EDT [facility] Opiate Screen Urine Presumptive positive. Confirmation by LC-MS/MS to follow. Cutoff: 300 ng/mL 03/12/2025 11:44 PM EDT [facility] Methadone Screen Urine Negative Cutoff: 300 ng/mL 03/12/2025 11:44 PM EDT [facility] Buprenorphine Screen Urine Negative Cutoff: 10 ng/mL 03/12/2025 11:44 PM EDT [facility] Fentanyl Screen Urine Presumptive positive. Confirmation by LC-MS/MS to follow. Cutoff: 1 ng/mL 03/12/2025 11:44 PM EDT [facility] Oxycodone Screen Urine Negative Cutoff: 100 ng/mL 03/12/2025 11:44 PM EDT [facility] Urine Urine specimen obtained by clean catch procedure / Unknown Non-blood Collection / Unknown 03/12/2025 11:05 PM EDT 03/12/2025 11:11 PM EDT Delta Wilhelm MD LAB URINE ORDERABLES Final Result [address] [address] * (ABNORMAL) Fentanyl Urine Confirm (03/12/2025 11:05 PM EDT) Fentanyl 3(H) <1 ng/mL 03/15/2025 5:06 PM EDT [facility] Norfentanyl 5(H) <2 ng/mL 03/15/2025 5:06 PM EDT [facility] Urine Urine specimen obtained by clean catch procedure / Unknown Non-blood Collection / Unknown 03/12/2025 11:05 PM EDT 03/12/2025 11:11 PM EDT Narrative [facility] - 03/15/2025 5:06 PM EDT Drug analysis is confirmed by LC-MS/MS (LC Tandem Mass Spectrometry) on Urine specimens. This test was developed and its performance characteristics determined by [facility]. It has not been cleared or approved by the FDA. The laboratory is regulated under CLIA as qualified to perform high-complexity testing. This test is used for clinical purposes. Testing is performed at the [facility], [facility]. us Delta Wilhelm MD LAB URINE ORDERABLES Final Result [facility] [address] [place] [address] * (ABNORMAL) Urinalysis with reflex microscopic (Culture NOT Included) (03/12/2025 11:05 PM EDT) Color, Urine Yellow LAB URINALYSIS - AUTOMATED METHOD 03/13/2025 12:17 AM EDT [facility] Clarity, Urine Clear LAB URINALYSIS - AUTOMATED METHOD 03/13/2025 12:17 AM EDT [facility] Spec [place], Urine >1.030(H) 1.005 - 1.030 LAB URINALYSIS - AUTOMATED METHOD 03/13/2025 12:17 AM EDT [facility] pH, Urine 7.0 5.0 - 8.0 LAB URINALYSIS - AUTOMATED METHOD 03/13/2025 12:17 AM EDT [facility] Protein, Urine 30(A) Negative mg/dL LAB URINALYSIS - AUTOMATED METHOD 03/13/2025 12:17 AM EDT [facility] Glucose, Urine 100(A) Negative mg/dL LAB URINALYSIS - AUTOMATED METHOD 03/13/2025 12:17 AM EDT [facility] Ketones, Urine Negative Negative mg/dL LAB URINALYSIS - AUTOMATED METHOD 03/13/2025 12:17 AM EDT [facility] Blood, Urine Large(A) Negative LAB URINALYSIS - AUTOMATED METHOD 03/13/2025 12:17 AM EDT [facility] Bilirubin, Urine Negative Negative LAB URINALYSIS - AUTOMATED METHOD 03/13/2025 12:17 AM EDT [facility] Urobilinogen, Urine 0.2 0.2 to 1.0 mg/dL LAB URINALYSIS - AUTOMATED METHOD 03/13/2025 12:17 AM EDT [facility] Leukocytes, Urine Moderate(A) Negative LAB URINALYSIS - AUTOMATED METHOD 03/13/2025 12:17 AM EDT [facility] Nitrite, Urine Negative Negative LAB URINALYSIS - AUTOMATED METHOD 03/13/2025 12:17 AM EDT [facility] RBC, Urine >50(A) 0 to 3 /HPF LAB URINALYSIS - AUTOMATED METHOD 03/13/2025 12:17 AM EDT [facility] WBC, Urine >50(A) 0 to 5 /HPF LAB URINALYSIS - AUTOMATED METHOD 03/13/2025 12:17 AM EDT [facility] Squamous Epithelial Cells 0 - 2 0 to 5 /HPF LAB URINALYSIS - AUTOMATED METHOD 03/13/2025 12:17 AM EDT [facility] Hyaline Casts 0 - 2 0 to 5 /LPF LAB URINALYSIS - AUTOMATED METHOD 03/13/2025 12:17 AM EDT [facility] Bacteria, Urine Negative Negative LAB URINALYSIS - AUTOMATED METHOD 03/13/2025 12:17 AM EDT [facility] Urine Urine specimen obtained by clean catch procedure / Unknown Non-blood Collection / Unknown 03/12/2025 11:05 PM EDT 03/12/2025 11:11 PM EDT Delta Wilhelm MD LAB URINE ORDERABLES Final Result Performing Organization Address City/[facility]/[place] [address] * Shona auris Surveillance by PCR (03/12/2025 10:18 PM EDT) Shona auris PCR Result Not Detected Not Detected 03/14/2025 6:39 AM EDT [facility] Swab (Axilla and Groin) Non-blood Collection / Unknown 03/12/2025 10:18 PM EDT 03/12/2025 10:22 PM EDT Narrative [facility] - 03/14/2025 6:39 AM EDT This PCR assay was developed and its performance characteristics determined by [facility] as appropriate for clinical purposes. This assay has not been cleared or approved by the FDA, but is performed in a CLIA regulated laboratory that is qualified to perform high-complexity testing. us Delta Wilhelm MD LAB MICROBIOLOGY - GENERAL ORDERABLES Final Result Performing Organization Address [facility]/ZIP Co de Phone Number [facility] [address] [place] [address] * Multi Drug Resistance Test (03/12/2025 10:18 PM EDT) Culture No growth at day 1 03/14/2025 8:08 AM EDT [facility] Swab (Nares and Jazmyn Rectal) Non-blood Collection / Unknown 03/12/2025 10:18 PM EDT 03/12/2025 10:22 PM EDT Narrative [facility] - 03/14/2025 8:08 AM EDT This test was developed and its performance characteristics determined by the [facility]. Although the media is FDA-approved, it is not FDA-approved for all specimen types submitted. The FDA has determined that such clearance or approval is not necessary. This test is used for surveillance purposes. It should not be regarded as investigational or for research. The [facility] is certified under the Clinical Laboratory Improvement Amendments of 1988 (CLIA-88) as qualified to perform high complexity clinical laboratory testing. Delta Wilhelm MD LAB MICROBIOLOGY - GENERAL ORDERABLES Final Result Performing Organization Address City/[facility]/ZIP Co de Phone Number [facility] [address] [place] [address] * (ABNORMAL) Troponin T, High Sensitivity, 2 Hour, Plasma (03/12/2025 10:17 PM EDT) [facility] Troponin T, High Sensitivity, 2 Hour 28(H) <19 ng/L 03/12/2025 10:50 PM EDT [facility] Troponin Delta Interpretation Not Calculated 03/12/2025 10:50 PM EDT [facility] Comment:Specimen not collect ed within acceptable timeframe. Delta will not be calculated. Blood Venous blood specimen / Unknown Venipuncture / Unknown 03/12/2025 10:17 PM EDT 03/12/2025 10:22 PM EDT Staci Castro LAB BLOOD ORDERABLES Final Resul t Performing Organization Address [facility] Co de Phone Number [facility] [address] [place] [address] * (ABNORMAL) Potassium (03/12/2025 10:17 PM EDT) Potassium, Plasma 6.3(H) 3.6 - 4.9 mmol/L 03/12/2025 10:44 PM EDT [facility] Blood Venous blood specimen / Unknown Venipuncture / Unknown 03/12/2025 10:17 PM EDT 03/12/2025 10:22 PM EDT Delta Wilhelm MD LAB BLOOD ORDERABLES Final Result [facility] [address] [place] [address] * XR Chest 1 View (03/12/2025 9:21 [...] of the abdomen. COMPARISON: None. FINDINGS: Limited [id number] abdominal radiograph for the purpose of locating tube position. The tip of the nasogastric tube is within the proximal stomach. Procedure Note Libra Balbuena MD - 03/12/2025 CLINICAL INDICATION: Orogastric tube TECHNIQUE: Supine radiograph of the abdomen. COMPARISON: None. FINDINGS: Limited [id number] abdominal radiograph for the purpose of locatingtube [...] at day 5 03/17/2025 10:01 PM EDT [facility] Blood Structure of left forearm / Unknown Venipuncture / Unknown 03/12/2025 9:12 PM EDT 03/12/2025 9:55 PM EDT Narrative [facility] - 03/17/2025 10:01 PM EDT Low blood volume submitted, results may be compromised us Staci Castro LAB MICROBIOLOGY - GENERAL ORDER ALLEN Final Result Performing Organization Address City/[facility]/ZIP Co de Phone Number [facility] [address] [place] [address] * Methemoglobin (03/12/2025 9:07 PM EDT) Pathologist [facility] Methemoglobin 0.6 0.0 - 1.5 % LAB HEMATOLOGY METHOD 03/12/2025 9:18 PM EDT [facility] Blood Venous blood specimen / Unknown Venipuncture / Unknown 03/12/2025 9:07 PM EDT 03/12/2025 9:17 PM EDT Result Coltno Castro LAB BLOOD ORDERABLES Final Resul t Performing Organization Address City/[facility]/ZIP Co de Phone Number [facility] [address] [place] [address] * Streptococcus pneumoniae and Legionella Urinary Antigen (03/12/2025 9:00 PM EDT) [facility] Legionella pneumophila serogroup 1 Antigen Result (Urine) Negative Negative 03/12/2025 9:44 PM EDT [facility] Streptococcus pneumoniae Antigen Result (Urine) Negative Negative 03/12/2025 9:44 PM EDT [facility] Urine Urine specimen obtained by clean catch procedure / Unknown Non-blood Collection / Unknown 03/12/2025 9:00 PM EDT 03/12/2025 9:19 PM EDT Result Colton Castro LAB MICROBIOLOGY - GENERAL ORDER ALLEN Final Result Performing Organization Address City/[facility]/[place] [address] * (ABNORMAL) POCT arterial blood gas gem (03/12/2025 8:57 PM EDT) Pathologist [facility] pH, Arterial 7.34 7.31 - 7.42 03/12/2025 8:59 PM EDT [facility] pCO2, Arterial 53(H) 32 - 45 mm Hg 03/12/2025 8:59 PM EDT [facility] pO2, Arterial 75 >70 mm Hg 03/12/2025 8:59 PM T [facility] SO2, Arterial 98 94 - 98 % 03/12/2025 8:59 PM EDT [facility] FIO2 100.0 % 03/12/2025 8:59 PM T [facility] Base Excess, Arterial 1.9 -2 - 3 mmol/L 03/12/2025 8:59 PM T [facility] HCO3, Arterial 28.6(H) 22 - 26 mmol/L 03/12/2025 8:59 PM T [facility] Total Hemoglobin, Arterial, Whole Blood 11.8(L) 13.7 - 17.5 g/dL 03/12/2025 8:59 PM [facility] Hematocrit, Arterial 35.0(L) 40 - 51.0 % 03/12/2025 8:59 PM T [facility] Sodium, Arterial 132(L) 136 - 145 mmol/L 03/12/2025 8:59 PM [facility] Potassium, Arterial 6.2(H) 3.6 - 4.9 mmol/L 03/12/2025 8:59 PM [facility] Comment:Hemolyzed, result ma y be falsely increased. Chloride, Whole Blood 101 97 - 107 mmol/L 03/12/2025 8:59 PM [facility] Glucose, Arterial 121(H) 74 - 99 mg/dL 03/12/2025 8:59 PM T [facility] Ionized Calcium, Arterial 4.6 4.6 - 5.1 mg/dL 03/12/2025 8:59 PM T [facility] Lactate, Arterial 0.7 0.5 - 1.6 mmol/L 03/12/2025 8:59 PM T [facility] Body Temperature 37.2 Celsius 03/12/2025 8:59 PM [facility] pH, Temp Corrected, Arterial 7.34 7.31 - 7.42 03/12/2025 8:59 PM T [facility] pCO2, Temp Corrected, Arterial 53(H) 32 - 45 mm Hg 03/12/2025 8:59 PM EDT [facility] pO2, Temp Corrected, Arterial 76 >70 mm Hg 03/12/2025 8:59 PM EDT [facility] Mold Stacker ID Dwayne Bose 03/12/2025 8:59 PM EDT [facility] Blood, Arterial Whole blood specimen / Unknown 03/12/2025 8:57 PM EDT 03/12/2025 8:59 PM EDT Staci Castro LAB POINT OF CARE TE ST DOCKED DEVICE UNSOLICITED RESULTS Final Result Performing Organization Address City/[facility]/ZIP Co de Phone Number [facility] [address] [place] [address] * SARS CoV-2/COVID-19 by PCR - Rapid (03/12/2025 8:53 PM EDT) Pathologist [facility] SARS CoV-2/COVID-1 9 RNA PCR Result Not Detected Not Detected 03/12/2025 10:09 PM EDT [facility] Swab Nasopharyngeal structure / Unknown Non-blood Collection / Unknown 03/12/2025 8:53 PM EDT 03/12/2025 9:20 PM EDT Narrative [facility] - 03/12/2025 10:09 PM EDT [...] ORDER ALLEN Final Result Performing Organization Address City/[facility]/ZIP Co de Phone Number [facility] [address] [place] [address] * Nasopharyngeal Respiratory Panel (03/12/2025 8:53 PM EDT) Nasopharyngeal Respiratory PCR Interpretation Not Detected for all analytes Not Detected for all analytes 03/13/2025 1:10 AM EDT [facility] Swab Nasopharyngeal structure / Unknown Non-blood Collection / Unknown 03/12/2025 8:53 PM EDT 03/12/2025 9:20 PM EDT Narrative [facility] - 03/13/2025 1:10 AM EDT [...] Respiratory PCR Panel is performed using the [employer] e[employer] instrument. This test is FDA approved for use with Nasopharyngeal swabs only. This test is used for clinical purposes. It should not be regarded as investigational or for research. The [facility] is certified under the Clinical Laboratory Improvement Amendments of 1988 (CLIA-88) as qualified to perform high complexity clinical laboratory testing. us Staci Castro LAB MICROBIOLOGY - GENERAL ORDER ALLEN Final Result [facility] [address] [place] [address] * Methicillin Resistant Staphylococcus aureus (MRSA) by PCR (03/12/2025 8:53 PM EDT) Methicillin Resistant Staphylococcus aureus (MRSA) by PCR Not Detected Not Detected 03/12/2025 10:41 PM EDT [facility] Swab Both anterior nares / Unknown Non-blood Collection / Unknown 03/12/2025 8:53 PM EDT 03/12/2025 9:20 PM EDT Narrative [facility] - 03/12/2025 10:41 PM EDT [...] ORDER ALLEN Final Result Performing Organization Address City/[facility]/ZIP Co de Phone Number [facility] [address] [place] [address] * EKG now - STAT (adult) (03/12/2025 8:49 PM EDT) EKG DIAGNOSIS CLASS Abnormal MUSE ECG Ventricular Rate 62 BPM MUSE ECG Atrial Rate 62 BPM MUSE ECG NM Interval 168 ms MUSE ECG QRSD Interval 128 ms MUSE ECG QT Interval 416 ms MUSE ECG QTC Interval 422 ms MUSE ECG P [place] 64 degrees MUSE ECG R [place] 81 degrees MUSE ECG T Wave [place] 81 degrees MUSE ECG Diagnosis Normal sinus rhythm MUSE ECG Diagnosis Right bundle branch block MUSE ECG Diagnosis Abnormal ECG MUSE ECG Diagnosis MUSE ECG Diagnosis Confirmed by Chino Witt ([id number]) on 03/13/2025 8:51:16 PM MUSE ECG 03/12/2025 8:49 PM EDT 03/13/2025 8:51 PM EDT us Staci Castro ECG ORDERABLES Final Result Performing Organization Address [facility] Co de Phone Number MUSE ECG * ED HIV 1/2 Antibody/Antigen Screen w/Reflex to HIV 1/2 Differentiation (03/12/2025 8:48 PM EDT) HIV 1 & 2 Antibody/Antigen Screen Non Reactive Non Reactive 03/12/2025 9:37 PM EDT [facility] Comment:Screening for HIV 1 & 2 antibodies, and P24 antigen is NONREACTIVE. No confirmatory testing is required. Blood Venous blood specimen / Unknown Venipuncture / Unknown 03/12/2025 8:48 PM EDT 03/12/2025 9:00 PM EDT us Staci Castro LAB BLOOD ORDERABLES Final Resul t Performing Organization Address [facility]/ZIP Co de Phone Number [facility] [address] [place] [address] * TSH Reflex FT4 (03/12/2025 8:48 PM EDT) Thyroid Stimulating Hormone, Plasma 2.54 0.40 - 4.20 uIU/mL 03/12/2025 10:27 PM EDT [facility] Blood Venous blood specimen / Unknown Venipuncture / Unknown 03/12/2025 8:48 PM EDT 03/12/2025 8:59 PM EDT us Delta Wilhelm MD LAB BLOOD ORDERABLES Final Result Performing Organization Address [facility] [place] [address] * (ABNORMAL) Troponin now and 120 min (03/12/2025 8:48 PM EDT) Troponin T, High Sensitivity, 0 Hour 32(H) <19 ng/L 03/12/2025 9:37 PM EDT [facility] Blood Venous blood specimen / Unknown Venipuncture / Unknown 03/12/2025 8:48 PM EDT 03/12/2025 8:59 PM EDT us Staci Castro LAB BLOOD ORDERABLES Final Resul t Performing Organization Address City/[facility]/ZIP Co de Phone Number [facility] [address] [place] [address] * Light Green Top (03/12/2025 8:48 PM EDT) Extra Hold for add-ons 03/13/2025 12:01 AM EDT [facility] Comment:Auto resulted. Blood Venous blood specimen / Unknown 03/12/2025 8:48 PM EDT 03/12/2025 9:20 PM EDT us Delta Wilhelm MD LAB BLOOD ORDERABLES Final Result [facility] [address] [place] [address] * Light Blue Top (03/12/2025 8:48 PM EDT) [facility] Extra Hold for add-ons 03/13/2025 12:01 AM EDT [facility] Comment:Auto resulted. Blood Venous blood specimen / Unknown 03/12/2025 8:48 PM EDT 03/12/2025 9:20 PM EDT Delta Wilhelm MD LAB BLOOD ORDERABLES Final Result Performing Organization Address [facility] Co de Phone Number [facility] [address] [place] [address] * (ABNORMAL) Procalcitonin (03/12/2025 8:48 PM EDT) [facility] Procalcitonin, Plasma 0.11(H) <0.09 ng/mL 03/12/2025 9:37 PM EDT [facility] Blood Venous blood specimen / Unknown Venipuncture / Unknown 03/12/2025 8:48 PM EDT 03/12/2025 8:59 PM EDT Narrative [facility] - 03/12/2025 9:37 PM EDT [...] predict 28 day mortality risk. Please consult [email or web address] for more information. Test performed at [facility], [facility]. us Staci Castro LAB BLOOD ORDERABLES Final Resul t [facility] [address] [place] [address] * Hepatitis C Antibody - ED (03/12/2025 8:48 PM EDT) Hepatitis C Antibody Negative Negative 03/12/2025 9:38 PM EDT [facility] Blood Venous blood specimen / Unknown Venipuncture / Unknown 03/12/2025 8:48 PM EDT 03/12/2025 8:59 PM EDT us Staci Castro LAB BLOOD ORDERABLES Final Resul t Performing Organization Address [facility] [place] [address] * (ABNORMAL) PT-INR (03/12/2025 8:48 PM EDT) Prothrombin Time 14.6(H) 12.0 - 14.3 sec 03/12/2025 9:06 PM EDT [facility] INR 1.2(H) 0.9 - 1.1 03/12/2025 9:06 PM EDT [facility] Blood Venous blood specimen / Unknown Venipuncture / Unknown 03/12/2025 8:48 PM EDT 03/12/2025 8:53 PM EDT Narrative [facility] - 03/12/2025 9:06 PM EDT OPTIMAL INR RANGES FOR PATIENT ON ORAL ANTICOAGULANT THERAPY Prevention of venous thromboembolism INR 2.0 to 3.0 In patients with heart disease: Atrial fibrillation INR 2.0 to 3.0 Valvular heart disease INR 2.0 to 3.0 Tissue heart valves INR 2.0 to 3.0 Mechanical prosthetic valves INR 2.5 to 3[address] INR 2.5 to 3.5 us Staci Castro LAB BLOOD ORDERABLES Final Resul t Performing Organization Address City/[facility]/[place] [address] * (ABNORMAL) CBC w/diff (03/12/2025 8:48 PM EDT) WBC Count 9.02 3.70 - 10.30 10*3/uL LAB HEMATOLOGY METHOD 03/12/2025 8:56 PM EDT [facility] RBC Count 4.48(L) 4.60 - 6.10 10*6/uL LAB HEMATOLOGY METHOD 03/12/2025 8:56 PM EDT [facility] HGB 12.3(L) 13.7 - 17.5 g/dL LAB HEMATOLOGY METHOD 03/12/2025 8:56 PM EDT [facility] HCT 39.2(L) 40.0 - 51.0 % LAB HEMATOLOGY METHOD 03/12/2025 8:56 PM EDT [facility] Platelet Count 196 155 - 369 10*3/uL LAB HEMATOLOGY METHOD 03/12/2025 8:56 PM EDT [facility] MCV 88 79 - 98 fL LAB HEMATOLOGY METHOD 03/12/2025 8:56 PM EDT [facility] MCH 27.5 26.0 - 32.0 pg LAB HEMATOLOGY METHOD 03/12/2025 8:56 PM EDT [facility] MCHC 31.4 30.7 - 35.5 g/dL LAB HEMATOLOGY METHOD 03/12/2025 8:56 PM EDT [facility] RDW 16.8(H) 11.5 - 14.5 % LAB HEMATOLOGY METHOD 03/12/2025 8:56 PM EDT [facility] MPV 9.4 8.8 - 12.5 fL LAB HEMATOLOGY METHOD 03/12/2025 8:56 PM EDT [facility] nRBC 0.0 <=0.0 per 100 WBCs LAB HEMATOLOGY METHOD 03/12/2025 8:56 PM EDT [facility] Differential Type Automated LAB HEMATOLOGY METHOD 03/12/2025 8:56 PM EDT [facility] Neutrophils % 87 % LAB HEMATOLOGY METHOD 03/12/2025 8:56 PM EDT [facility] Lymphocytes % 11 % LAB HEMATOLOGY METHOD 03/12/2025 8:56 PM EDT [facility] Monocytes % 2 % LAB HEMATOLOGY METHOD 03/12/2025 8:56 PM EDT [facility] Eosinophils % 0 % LAB HEMATOLOGY METHOD 03/12/2025 8:56 PM EDT [facility] Basophils % 0 % LAB HEMATOLOGY METHOD 03/12/2025 8:56 PM EDT [facility] Immature Granulocytes % 0 % LAB HEMATOLOGY METHOD 03/12/2025 8:56 PM EDT [facility] Neutrophils Absolute 7.72(H) 1.60 - 6.10 10*3/uL LAB HEMATOLOGY METHOD 03/12/2025 8:56 PM EDT [facility] Lymphocytes Absolute 1.01(L) 1.20 - 3.90 10*3/uL LAB HEMATOLOGY METHOD 03/12/2025 8:56 PM EDT [facility] Monocytes Absolute 0.22(L) 0.30 - 0.90 10*3/uL LAB HEMATOLOGY METHOD 03/12/2025 8:56 PM EDT [facility] Eosinophils Absolute 0.03 0.00 - 0.50 10*3/uL LAB HEMATOLOGY METHOD 03/12/2025 8:56 PM EDT [facility] Basophils Absolute 0.02 0.00 - 0.10 10*3/uL LAB HEMATOLOGY METHOD 03/12/2025 8:56 PM EDT [facility] Immature Granulocytes Absolute 0.02 0.00 - 0.06 10*3/uL LAB HEMATOLOGY METHOD 03/12/2025 8:56 PM EDT [facility] Blood Venous blood specimen / Unknown Venipuncture / Unknown 03/12/2025 8:48 PM EDT 03/12/2025 8:53 PM EDT Narrative [facility] - 03/12/2025 8:56 PM EDT Therapeutic decision making should be based on absolute values, rather than percentages. us Staci Castro LAB BLOOD ORDERABLES Final Resul t [facility] [address] [place] [address] * (ABNORMAL) C-reactive protein (03/12/2025 8:48 PM EDT) CRP, Plasma 10.6(H) <=8.0 mg/L 03/12/2025 10:27 PM EDT [facility] Blood Venous blood specimen / Unknown Venipuncture / Unknown 03/12/2025 8:48 PM EDT 03/12/2025 8:59 PM EDT Narrative [facility] - 03/12/2025 10:27 PM EDT This CRP test is appropriate for assessment of infection, systemic inflammation and/or tissue injury. To assess cardiovascular disease risk order high sensitivity CRP (CRPH). us Delta Wilhelm MD LAB BLOOD ORDERABLES Final Result [facility] [address] [place] [address] * (ABNORMAL) POCT venous blood gas gem (03/12/2025 8:41 PM EDT) pH, Venous 7.34 7.32 - 7.43 03/12/2025 8:42 PM EDT [facility] pCO2, Venous 57(H) 40 - 55 mm Hg 03/12/2025 8:42 PM EDT [facility] pO2, Venous 46(H) 25 - 40 mm Hg 03/12/2025 8:42 PM EDT [facility] SO2, Venous 82(H) 65 - 80 % 03/12/2025 8:42 PM EDT [facility] Base Excess/Deficit, Venous 3.7(H) -2 - 3 mmol/L 03/12/2025 8:42 PM EDT [facility] HCO3, Venous 30.8(H) 22 - 26 mmol/L 03/12/2025 8:42 PM EDT [facility] Hemoglobin, Venous 12.3(L) 13.7 - 17.5 g/dL 03/12/2025 8:42 PM EDT [facility] [facility] Hematocrit, Venous 37.0(L) 40.0 - 51.0 % 03/12/2025 8:42 PM EDT [facility] Sodium, Venous 132(L) 136 - 145 mmol/L 03/12/2025 8:42 PM EDT [facility] Potassium, Venous 6.4(H) 3.6 - 4.9 mmol/L 03/12/2025 8:42 PM EDT [facility] Comment:Hemolyzed, result ma y be falsely increased. POCT Chloride, Venous 101 97 - 107 mmol/L 03/12/2025 8:42 PM EDT [facility] Glucose, Venous 113(H) 74 - 99 mg/dL 03/12/2025 8:42 PM EDT [facility] Ionized Calcium, Venous 4.6 4.6 - 5.1 mg/dL 03/12/2025 8:42 PM EDT [facility] Lactate, Venous 0.9 0.5 - 2.2 mmol/L 03/12/2025 8:42 PM EDT [facility] Body Temperature 37.0 Celsius 03/12/2025 8:42 PM EDT [facility] pH, Temp Corrected, Venous 7.34 7.32 - 7.43 03/12/2025 8:42 PM EDT [facility] pCO2, Temp Corrected, Venous 57(H) 40 - 55 mm Hg 03/12/2025 8:42 PM EDT [facility] pO2, Temp Corrected, Venous 46(H) 25 - 40 mm Hg 03/12/2025 8:42 PM EDT [facility] Mold Stacker ID Irene Ro 03/12/2025 8:42 PM EDT [facility] Blood, Venous Whole blood specimen / Unknown 03/12/2025 8:41 PM EDT 03/12/2025 8:42 PM EDT us Generic Provider Poct LAB POINT OF CARE TEST DOCKED DEVICE UNSOLICITED RESULTS Final Result Performing Organization Address City/State/[facility] Co nm Phone Number [facility] [address] [place] [address] * [place] CRITICAL CARE, ADDL 30 MIN (03/12/2025 8:41 [...] Final Result from Last 3 Months Insurance COUNTS INCLUDE 234 BEDS AT THE [facility] MEDICARE Advance Directives * Full Code (Latest Code Status on File) Date Activated Date Inactivated Comments 03/12/2025 9:57 PM 03/17/2025 2:00 PM Question Answer Comments I have reviewed the capacity from the link above and, if needed, have updated to appropriate status: Yes Care Teams Peoplesoft Programmer Relationship Specialty Start Date End Date Joycelyn Montes PA [address] [place] [address] PCP - General 04/01/23
--- OUTSIDE RECORDS SUMMARY | 2025-05-31 11:10 | XMS_ITS ---
Author Organization [facility] Address [address] [place] [address] Care Team Providers Care Preparation Operator Name Role Phone SimonJoycelyn PANKAJ Primary Care Provider [phone] Active Problems Problem Noted Date Diagnosed Date [...]
--- OUTSIDE RECORDS SUMMARY | 2025-05-31 11:10 | XMS_ITS | Encounter Summary ---
Author Organization Healthcare Address [address] [place] [address] Care Team Providers Care Music Minister Name Role Phone Joycelyn Montes PANKAJ Primary Care Provider [phone] Brinda Pineda LPN Unavailable Unavailable Encounter Details Date Type Department Care Team (Late st Contact Info) Description 02/23/2024 Orders Only External Location [address] [place] [address] Olga Shin MD [address] [place] [address] Social History Tobacco Use Types [...] 025 1:10 AM EDT Tuberculosis Rule-Out Comment:Per [facility] chat with Lay Clark, on 03/15/25 @ 5557, there is no concern for TB. - Aryaannel Ravindra 03/13/2025 03/13/2025 03/13/2025 11:31 AM EDT documented as of this encounter Care Teams Music Minister Relationship Specialty Start Date End Date Joycelyn Montes PA [address] [facility] [place] [address] PCP - General 04/01/23 Brinda Pineda LPN VALUE-BASED [place] [address] TCM Nurse 03/18/25 04/17/25 documented as of this encounter
--- OUTSIDE RECORDS SUMMARY | 2025-05-31 11:10 | XMS_ITS ---
Author Organization [facility] Address [address] [place] [address] Care Team Providers Care Captain/Check Airman Name Role Phone Joycelyn Montes Primary Care Provider [phone] Transitional Care Management Status:Closed (Closed) Start date:03/18/2025 Enrollment date:03/18/2025 Enrollment reason:Identified using hospital discharge data End date:04/17/2025 Close reason:Patient graduated Overview This episode type is for outpatient care managers enrolling patients in the [facility] Transitional Care Management program. Continued Care and Services Coordination
--- OUTSIDE RECORDS SUMMARY | 2025-05-31 12:09 | XMS_ITS | CCD ---
Author Organization Unknown Care Team Providers Care Systems Designer Name Role Phone Unavailable Primary Care Provider Unavailabl e Unavailable Chronic Care Management Unavaila ble Summary Purpose DataExchange Insurance Providers Payer name Policy type / Coverage type Covered alliance party ID Effective Begin Date Effective End Date [facility] [id number] Unknown Unknown Family History Family History data not found Medication Administered No Medication Administered data Reason For Visit No Reason For Visit data Medical Equipment No Medical Equipment data Advance Directives No Advance Directive data
--- OUTSIDE RECORDS SUMMARY | 2025-05-31 12:09 | XMS_ITS | CCD ---
Author Organization Unknown Care Team Providers Care Call Circuit Worker Name Role Phone Unavailable Primary Care Provider Unavailabl e Unavailable Chronic Care Management Unavaila ble Summary Purpose DataExchange Insurance Providers Payer name Policy type / Coverage type Covered alliance party ID Effective Begin Date Effective End Date [facility] [id number] Unknown Unknown Family History Family History data not found Medication Administered No Medication Administered data Reason For Visit No Reason For Visit data Medical Equipment No Medical Equipment data Advance Directives No Advance Directive data
== END 2025-05-30 23:59 | disposition home or self-care (01) ==
LOC: LAB.DROPOF 05-31 11:06
PROVIDERS: PCP Family Medicine; Visit Provider Family Medicine
DX: I10 Essential (primary) hypertension (principal); G25.0 Essential tremor
CPT/HCPCS: 80048

== ENCOUNTER 2025-06-20 16:12 | Outpatient (CLI) | payer MEDICARE, SELFPAY ==
[2025-06-20 20:05] LABS: Chloride 103 mmol/L (98-107); Potassium 4.9 mmoL/L (3.5-5.1); Sodium 141 mmol/L (136-145)
[2025-06-20 20:08] LABS: Anion Gap 14.9 mEq/L (5-15); Blood Urea Nitrogen 36 mg/dl (9-20); Calcium 9.2 mg/dl (8.4-10.2); Carbon Dioxide 28 mmol/L (22.0-30.0); Creatinine,Serum 1.90 mg/dl (0.66-1.25); Estimated Glomerular Filt Rate 35 ml/min (>60); GFR (African American) 42 ML/MIN (>60); Glucose 99 mg/dl (74-100)
--- OUTSIDE RECORDS SUMMARY | 2025-06-22 11:21 | XMS_ITS | Encounter Summary ---
Author Organization Healthcare Address [address] [place] [address] Care Team Providers Care Manager Clinical Informatics Name Role Phone Joycelyn Montes PANKAJ Primary Care Provider [phone] Brinda Pineda LPN Unavailable Unavailable Encounter Details Date Type Department Care Team (Late st Contact Info) Description 02/23/2024 Orders Only External Location [address] [place] [address] Olga Shin MD [address] [place] [address] Social History Tobacco Use Types [...] 025 1:10 AM EDT Tuberculosis Rule-Out Comment:Per [facility] chat with Lay Clark, on 03/15/25 @ [phone], there is no concern for TB. - Aryaannel Ravindra 03/13/2025 03/13/2025 03/13/2025 11:31 AM EDT documented as of this encounter Care Teams Manager Clinical Informatics Relationship Specialty Start Date End Date Joycelyn Montes PA [address] [facility] [place] [address] PCP - General 04/01/23 Brinda Pineda LPN VALUE-BASED [place] [address] TCM Nurse 03/18/25 04/17/25 documented as of this encounter
--- OUTSIDE RECORDS SUMMARY | 2025-06-22 11:21 | XMS_ITS ---
Author Organization [facility] Address [address] [place] [address] Care Team Providers Care Supervisor Lime Name Role Phone SimonJoycelyn PANKAJ Primary Care Provider [phone] Active Problems Problem Noted Date Diagnosed Date [...]
--- OUTSIDE RECORDS SUMMARY | 2025-06-22 11:21 | XMS_ITS | Clinical Summary ---
Author Organization [facility] Address [address] [place] [id number] Care Team Providers Care Head Greenskeeper Name Role Phone Unavailable Primary Care Provider [...] ction 01/03/2016 Coronary artery disease invo lving [place] coronary artery of [place] heart without angina pectoris 01/03/2016 Chronic neck [...] SCREENING Discontinued Medical Devices Implanted Type Area Covering Machine Operator Helper Device Identifier Shelf Expiration Date Model / Serial / Lot Implant Implant Left: Ankle Description:hardware in left leg Cmt Bone Smartmix Gmv Gent 40gr - [id number] Implanted:Qty : 2 on 02/18/2017 by Lucho Cornelius MD at [facility] Implant Left: Knee DEPUY 06/16/2018 [id number] / / [id number] Pat Triath Asym X3 68b80ev - [id number] Implanted:Qty : 1 on 02/18/2017 by Lucho Cornelius MD at [facility] Implant Left: Patella JUAN MANUEL HENRY 09/23/2021 [id number] / / [id number] Insrt Tib Triath Ps X3 No6 13mm - [id number] Implanted:Qty : 1 on 02/18/2017 by Lucho Cornelius MD at [facility] Implant Left: Knee JUAN MANUEL HENRY 06/15/2020 [id number] / / [id number] Baseplt Tib Triath Cemnt No6 - [id number] Implanted:Qty : 1 on 02/18/2017 by Lucho Cornelius MD at [facility] Implant Left: Knee JUAN MANUEL HENRY 09/06/2020 [id number] / / [id number] Comp Fem Triath Ps Cmt No6 Lt - [id number] Implanted:Qty : 1 on 02/18/2017 by Lucho Cornelius MD at [facility] Implant Left: Knee JUAN MANUEL HENRY 06/15/2020 [id number] / / [id number] Totl Kn Hi Demand Juan Manuel - [id number] Implanted:Qty : 1 on 02/18/2017 by Lucho Cornelius MD at [facility] Implant Left: Patella JUAN MANUEL HENRY CAPKNTOTLHID [id number] / / Promus Stent Implanted:Qty : 1 on 08/13/2008 by Filippo Obrien MD Stent [employer] [id number] / [id number] / [id number] Description:Promus Stent RCA Procedures Procedure Name Priority [...] Maintenance Results * SCANNED - COLOGUARD (11/19/2019) [facility] BLOOD ORDERABLES Final Re sult [...] Blood 08/02/2019 8:58 AM EDT 08/02/2019 N[facility]ative [facility] - 08/03/2019 12:09 PM EDT Performed at: 01 - [address] [id number] Field Installation Technician: Golden Keller PhD, Phone: [phone] Patient Fasting: Y Kylie Garcia MD LAB BLOOD ORDERABLES Final Result [facility] [address] [place] [address], [facility] [address] [place] [address], * Hepatitis C Antibody (07/22/2018 8:55 AM EDT) Pathologist [facility] Hep C Virus Ab <0.1 0.0 - 0.9 s/co ratio [facility] Comment: Negative: < 0.8 Indeterminate: 0.8 - 0.9 Positive: > 0.9 The CDC recommends that a positive HCV antibody result be followed up with a HCV Nucleic Acid Amplification test (781744). Blood 07/22/2018 8:55 AM EDT 07/22/2018 Narrative [facility] - 07/23/2018 7:12 AM EDT Performed at: 02 - [facility] [address] [place], [place] [id number] Field Installation Technician: Golden Keller PhD, Phone: [phone] Patient Fasting: Y Kylie Garcia MD LAB BLOOD ORDERABLES Final Result [facility] [address] [place] [address], [facility] [address] [place] [address], * SCANNED - INFLUENZA (07/10/2018) Kylie Garcia MD CHART REVIEW TABS Final Result from Last 3 Months or Most Recently Relevant to Health Maintenance [place] [address] [place] [address] MEDICARE ADVANTAGE Advance Directives * Full Code (Latest Code Status on File) Date Activated Date Inactivated Comments 02/18/2017 1:54 PM 02/20/2017 3:33 PM
--- OUTSIDE RECORDS SUMMARY | 2025-06-22 11:21 | XMS_ITS | Clinical Summary ---
Author Organization [facility] [place] [address] Care Team Providers Care Coat Joiner Name Role Phone SimonJoycelyn PANKAJ Primary Care Provider [phone] Allergies Active Allergy Reactions Criticality Noted Date [...] times a day. 4 Active HYDROcodone-tonya taminophen ([place]) 10-325 MG tablet Take 1 tablet by [...] Department Care Team Description 03/25/2025 Patient Outreach [facility] [address] [facility], [address] [place] [address] Brinda Pineda LPN Follow-up from Last 3 Months Immunizations Immunization Administration [...] and Family Not on file 03/15/2025 Attends Anabaptism Services Not on file 03/15 Active Member [...] any time in the past 12 m [facility], were you homeless or living in a penitentiary (including now)? No 03/15/2025 Utilities Answer Date [...] exists UKY-Medicare Annual Wellness (AWV) 05/07/2020 05/07/2019 RID-AFPLO-19 Vaccine (5 - Pfizer risk 2023- season) [...] this topic Medical Devices Implanted Type Area Ob Gyn Physician Assistant Device Identifier Shelf Expiration Date Model / Serial / Lot Stent Ureteral Double Pigtail Pos 6fr 24cm - Sn/A - [id number] Implanted:Qty: 1 on 04/27/2024 by Malik Dunaway MD at [facility] Stent Right: Ureter [id number] 10/09/2025 [id number] / N/A / [id number] Procedures Procedure Name Priority Date/Time Associated Diagnosis Comments HEPATITIS C ANTIBODY - ED W/REFLEX TO HCV QUANT PCR STAT 03/12/2025 8:48 PM EDT from Last 3 Months or Most Recently Relevant to Health Maintenance Results * Hepatitis C Antibody - ED (03/12/2025 8:48 PM EDT) Hepatitis C Antibody Negative Negative 03/12/2025 9:38 PM EDT [facility] Blood Venous blood specimen / Unknown Venipuncture / Unknown 03/12/2025 8:48 PM EDT 03/12/2025 8:59 PM EDT us Staci Castro LAB BLOOD ORDERABLES Final Resul t [facility] [address] [place] [address] from Last 3 Months or Most Recently Relevant to Health Maintenance Insurance [facility] Advance Directives * Full Code (Latest Code Status on File) Date Activated Date Inactivated Comments 03/12/2025 9:57 PM 03/17/2025 2:00 PM Question Answer Comments I have reviewed the capacity from the link above and, if needed, have updated to appropriate status: Yes Care Teams Coat Joiner Relationship Specialty Start Date End Date Joycelyn Montes PA [address] [place], [place] [id number] PCP - General 04/01/23
--- OUTSIDE RECORDS SUMMARY | 2025-06-22 12:20 | XMS_ITS | CCD ---
Author Organization Unknown Care Team Providers Care Director Payment Name Role Phone Unavailable Primary Care Provider Unavailabl e Unavailable Chronic Care Management Unavaila ble Summary Purpose DataExchange Insurance Providers Payer name Policy type / Coverage type Covered republican ID Effective Begin Date Effective End Date [facility] [id number] Unknown Unknown Family History Family History data not found Medication Administered No Medication Administered data Reason For Visit No Reason For Visit data Medical Equipment No Medical Equipment data Advance Directives No Advance Directive data
--- OUTSIDE RECORDS SUMMARY | 2025-06-22 12:20 | XMS_ITS | CCD ---
Author Organization Unknown Care Team Providers Care Pathological Technician Name Role Phone Unavailable Primary Care Provider Unavailabl e Unavailable Chronic Care Management Unavaila ble Summary Purpose DataExchange Insurance Providers Payer name Policy type / Coverage type Covered green party ID Effective Begin Date Effective End Date [facility] [id number] Unknown Unknown Family History Family History data not found Medication Administered No Medication Administered data Reason For Visit No Reason For Visit data Medical Equipment No Medical Equipment data Advance Directives No Advance Directive data
== END 2025-06-20 23:59 | disposition home or self-care (01) ==
LOC: LAB.DROPOF 06-22 11:18
PROVIDERS: PCP Family Medicine; Visit Provider Family Medicine
DX: E87.5 Hyperkalemia (principal)
CPT/HCPCS: 80048

== ENCOUNTER 2025-08-16 07:19 | Outpatient (CLI) | payer MEDICARE, SELFPAY ==
--- OUTSIDE RECORDS SUMMARY | 2025-08-16 07:21 | XMS_ITS ---
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
--- OUTSIDE RECORDS SUMMARY | 2025-08-16 07:21 | XMS_ITS | Clinical Summary ---
Author Organization [facility] Address [address] [place] [id number] Care Team Providers Care Bell Maker Name Role Phone Unavailable Primary Care Provider [...] ction 01/03/2016 Coronary artery disease invo lving [place] coronary artery of [place] heart without angina pectoris 01/03/2016 Chronic neck [...] Additional history exists COLOGUARD 11/19/2022 11/19/2019, 11/19/2019 INFLUENZA VACCINE 05/27/2025 07/28/2019, , 07/10/2018, Additional history exists COVID-19 Vaccine (1 - 2023-2 5 season) 2025 TDAP/TD VACCINES (2 - Tdap) 11/23/2027 11/23/2017 HEPATITIS C SCREENING Completed 07/22/2018 Pneumococcal Vaccine 50+ Completed 019, 07/27/2017, 07/01/2017 COLONOSCOPY Discontinued COLORECTAL CANCER SCREENING Discontinued Medical Devices Implanted Type Area Crop Insurance Claims Adjuster Device Identifier Shelf Expiration Date Model / Serial / Lot Implant Implant Left: Ankle Description:hardware in left leg Cmt Bone Smartmix Gmv Gent 40gr - [id number] Implanted:Qty : 2 on 02/18/2017 by Lucho Cornelius MD at [facility] Implant Left: Knee DEPUY 06/16/2018 [id number] / / [id number] Pat Triath Asym X3 54o06zq - [id number] Implanted:Qty : 1 on 02/18/2017 by Lucho Cornelius MD at [facility] Implant Left: Patella JUAN MANUEL HENRY 09/23/2021 [id number] / / [id number] Insrt Tib Triath Ps X3 No6 13mm - [id number] Implanted:Qty : 1 on 02/18/2017 by Lucho Cornelius MD at [facility] Implant Left: Knee JUAN MANUEL HENRY 06/15/2020 [id number] / / [id number] Baseplt Tib Triath Cemnt No6 - [id number] Implanted:Qty : 1 on 02/18/2017 by Lucho Cornelius MD at [facility] Implant Left: Knee JUAN MANUEL HENRY 09/06/2020 [id number] / / [id number] Comp Fem Triath Ps Cmt No6 Lt - [id number] Implanted:Qty : 1 on 02/18/2017 by Lucho Cornelius MD at [facility] Implant Left: Knee JUAN MANUEL HENRY 06/15/2020 [id number] / / [id number] Totl Kn Hi Demand Juan Manuel - [id number] Implanted:Qty : 1 on 02/18/2017 by uLcho Cornelius MD at [facility] Implant Left: Patella JUAN MANUEL HENRY CAPKNTOTLHID [id number] / / Promus Stent Implanted:Qty : 1 on 08/13/2008 by Filippo Obrien MD Stent [employer] [id number] / [id number] / [id number] Description:Promus Stent RCA Procedures Procedure Name Priority [...] Maintenance Results * SCANNED - COLOGUARD (11/19/2019) [facility] LAB BLOOD ORDERABLES Final Re sult [...] Blood 08/02/2019 8:58 AM EDT 08/02/2019 Narrative [facility] - 08/03/2019 12:09 PM EDT Performed at: 01 - [address] [id number] Reimbursement Coordinator: Golden Keller PhD, Phone: [phone] Patient Fasting: Y Kylie Garcia MD LAB BLOOD ORDERABLES Final Result [facility] [address] [place] [address], [facility] [address] [place] [address], * Hepatitis C Antibody (07/22/2018 8:55 AM EDT) Pathologist [facility] Hep C Virus Ab <0.1 0.0 - 0.9 s/co ratio [facility] Comment: Negative: < 0.8 Indeterminate: 0.8 - 0.9 Positive: > 0.9 The CDC recommends that a positive HCV antibody result be followed up with a HCV Nucleic Acid Amplification test ([id number]). Blood 07/22/2018 8:55 AM EDT 07/22/2018 Narrative [facility] ([facility]) - 07/23/2018 7:12 AM EDT Performed at: 02 - [facility] [place] [address] [place], [place] [id number] Reimbursement Coordinator: Golden Keller PhD, Phone: [phone] Patient Fasting: Y Kylie Garcia MD LAB BLOOD ORDERABLES Final Result [facility] [address] [place] [address], [facility] [address] [place] [address], * SCANNED - INFLUENZA (07/10/2018) Kylie Garcia MD CHART REVIEW TABS Final Result from Last 3 Months or Most Recently Relevant to Health Maintenance [place] [address] [address] MEDICARE ADVANTAGE Advance Directives * Full Code (Latest Code Status on File) Date Activated Date Inactivated Comments 02/18/2017 1:54 PM 02/20/2017 3:33 PM
--- OUTSIDE RECORDS SUMMARY | 2025-08-16 07:21 | XMS_ITS | Clinical Summary ---
Author Organization [facility] Address [facility] [place] [address] Care Team Providers Care Logistics Planner Name Role Phone SimonJoycelyn PANKAJ Primary Care Provider [phone] Allergies Active Allergy Reactions Criticality Noted Date [...] times a day. 4 Active HYDROcodone-tonya taminophen ([place]) 10-325 MG tablet Take 1 tablet by [...] infarction 01/03/2016 Hyperlipidemia 01/03/2016 Knee pain 01/03/2016 Resolved Problems Problem Noted Date Diagnosed Date Resolved Date Acute hypoxic respiratory failure 03/15/2025 07/17/2025 Acute hypoxic on chronic hyp ercapnic respiratory failure 03/12/2025 07/17/2025 Immunizations Immunization Administration Dates Next Due Influenza, [...] and Family Not on file 03/15/2025 Attends Christian Services Not on file 03/15 Active Member [...] any time in the past 12 m [facility], were you homeless or living in a senior care (including now)? No 03/15/2025 Utilities Answer Date Recorded In the past 12 months has th e [employer], gas, oil, or water [employer] threatened to shut off services in your [...] exists UKY-Medicare Annual Wellness (AWV) 05/07/2020 05/07/2019 UKY-Depression Screening 04/07/2025 04/07/2024 ADR-VQCRH-53 Vaccine (5 - Pfizer risk season) 2025 07/23/2024, 09/26/2021, 02/14/2021, Additional history exists UKY-Influenza Vaccine (#1) 06/27/202507/23, 08/11/2023, 06/20/2022, Additional [...] this topic Medical Devices Implanted Type Area Real Time Trader Device Identifier Shelf Expiration Date Model / Serial / Lot Stent Ureteral Double Pigtail Pos 6fr 24cm - Sn/A - [id number] Implanted:Qty: 1 on 04/27/2024 by Malik Dunaway MD at [facility] Stent Right: Ureter [employer] [id number] 10/09/2025 [id number] / N/A / [id number] Procedures Procedure Name Priority Date/Time Associated Diagnosis Comments HEPATITIS C ANTIBODY - ED W/REFLEX TO HCV QUANT PCR STAT 03/12/2025 8:48 PM EDT from Last 3 Months or Most Recently Relevant to Health Maintenance Results * Hepatitis C Antibody - ED (03/12/2025 8:48 PM EDT) Hepatitis C Antibody Negative Negative 03/12/2025 9:[address] [facility] Blood Venous blood specimen / Unknown Venipuncture / Unknown 03/12/2025 8:48 PM EDT 03/12/2025 8:59 PM EDT us Staci Castro LAB BLOOD ORDERABLES Final Resul t [facility] [address] [place] [address] from Last 3 Months or Most Recently Relevant to Health Maintenance Insurance COUNT INCLUDES [facility] MEDIC[facility] Advance Directives * Full Code (Latest Code Status on File) Date Activated Date Inactivated Comments 03/12/2025 9:57 PM 03/17/2025 2:00 PM Question Answer Comments I have reviewed the capacity from the link above and, if needed, have updated to appropriate status: Yes Care Teams Logistics Planner Relationship Specialty Start Date End Date Joycelyn Montes PA [address] [place] [address] PCP - General 04/01/23
--- OUTSIDE RECORDS SUMMARY | 2025-08-16 07:21 | XMS_ITS | Encounter Summary ---
Author Organization Healthcare Address [address] [place] [address] Care Team Providers Care Automobile Body Repair Supervisor Name Role Phone Joycelyn Montes PANKAJ Primary Care Provider [phone] Brinda Pineda LPN Unavailable Unavailable Encounter Details Date Type Department Care Team (Late st Contact Info) Description 02/23/2024 Orders Only External Location [address] [place] [address] Olga Shin MD [address] [place] [address] Social History Tobacco Use Types [...] 025 1:10 AM EDT Tuberculosis Rule-Out Comment:Per [facility] chat with Lay Clark, on 03/15/25 @ 6812, there is no concern for TB. - Aryaannel Ravindra 03/13/2025 03/13/2025 03/13/2025 11:31 AM EDT documented as of this encounter Care Teams Automobile Body Repair Supervisor Relationship Specialty Start Date End Date Joycelyn Montes PA [address] [facility] [place] [address] PCP - General 04/01/23 Brinda Pineda LPN VALUE[employer] [address] TCM Nurse 03/18/25 04/17/25 documented as of this encounter
--- NOTE | 2025-08-16 07:22 | CT_ITS ---
FINAL REPORT TECHNIQUE: Axial CT without IV contrast administration. This study was performed with techniques to keep radiation doses as low as reasonably achievable, (ALARA). Individualized dose reduction techniques using automated exposure control or adjustment of mA and/or kV according to the patient's size were employed. This study was performed with techniques to keep radiation doses as low as reasonably achievable, (ALARA). Individualized dose reduction techniques using automated exposure control or adjustment of mA and/or kV according to the patient''s size were employed. CLINICAL HISTORY: LUNG NODULE COMPARISON: 04/17/2025 FINDINGS: Assessment for mass and adenopathy is suboptimal without IV contrast. The previously identified right upper lobe mass is no longer evident. Bronchial wall thickening of the central right upper lobe bronchi could be related to treated tumor or bronchitis. The previously noted post obstructive changes have improved. There is scattered right upper lobe atelectasis and/or scarring. The right hilar adenopathy is significantly improved. Mild residual adenopathy is difficult to exclude without IV contrast. There is resolved subcarinal adenopathy. The left lung is clear. There is no evidence of effusion. IMPRESSION: Significant treatment response with resolved right upper lobe mass and improved/resolved adenopathy. No new abnormality. Reviewed, Interpreted and Dictated by Tucker Seo MD Transcribed by Lisy Dobbs Authenticated and [facility]
--- OUTSIDE RECORDS SUMMARY | 2025-08-16 08:21 | XMS_ITS | CCD ---
Author Organization Unknown Care Team Providers Care Cannon Fire Direction Specialist Name Role Phone Unavailable Primary Care Provider Unavailabl e Unavailable Chronic Care Management Unavaila ble Summary Purpose DataExchange Insurance Providers Payer name Policy type / Coverage type Covered democrat ID Effective Begin Date Effective End Date [facility] [id number] Unknown Unknown Family History Family History data not found Medication Administered No Medication Administered data Reason For Visit No Reason For Visit data Medical Equipment No Medical Equipment data Advance Directives No Advance Directive data
== END 2025-08-16 23:59 | disposition home or self-care (01) ==
LOC: RAD 07:19
PROVIDERS: PCP Family Medicine; Visit Provider Internal Medicine
DX: R91.1 Solitary pulmonary nodule (principal)
CPT/HCPCS: 71250

== ENCOUNTER 2025-08-22 09:55 | Outpatient (CLI) | payer MEDICARE, SELFPAY ==
--- NOTE | 2025-08-22 09:58 | XR_ITS ---
FINAL REPORT CLINICAL HISTORY: LEFT shoulder pain HX OF injury 2 years ago on this shoulder. still having pain COMPARISON: None FINDINGS: LEFT SHOULDER 3 views of the left shoulder were obtained. There is no acute fracture or dislocation. Visualized joint spaces are normally aligned. The glenohumeral and acromioclavicular joint spaces are preserved. Soft tissues are unremarkable. IMPRESSION: No acute bony abnormality. Reviewed, Interpreted and Dictated by Gael Carreon MD Transcribed by Mónica Cabrera Authenticated and [facility]
--- OUTSIDE RECORDS SUMMARY | 2025-08-22 10:03 | XMS_ITS | Encounter Summary ---
Author Organization Healthcare Address [address] [place] [address] Care Team Providers Care Channel Program Manager Name Role Phone Joycelyn Montes PANKAJ Primary Care Provider [phone] Brinda Pineda LPN Unavailable Unavailable Encounter Details Date Type Department Care Team (Late st Contact Info) Description 02/23/2024 Orders Only External Location [address] [place] [address] Olga Shin MD [address] [place] [address] Social History Tobacco Use Types [...] 025 1:10 AM EDT Tuberculosis Rule-Out Comment:Per [facility] chat with Lay Clark, on 03/15/25 @ 4095, there is no concern for TB. - Aryaannel Ravindra 03/13/2025 03/13/2025 03/13/2025 11:31 AM EDT documented as of this encounter Care Teams Channel Program Manager Relationship Specialty Start Date End Date Joycelyn Montes PA [address] [facility] [place] [address] PCP - General 04/01/23 Brinda Pineda LPN VALUE[employer] [place] [address] TCM Nurse 03/18/25 04/17/25 documented as of this encounter
--- OUTSIDE RECORDS SUMMARY | 2025-08-22 10:03 | XMS_ITS | Clinical Summary ---
Author Organization [facility] Address [address] [place] [id number] Care Team Providers Care Sports Medicine Trainer Name Role Phone Unavailable Primary Care Provider [...] ction 01/03/2016 Coronary artery disease invo lving [place] coronary artery of [place] heart without angina pectoris 01/03/2016 Chronic neck [...] SCREENING Discontinued Medical Devices Implanted Type Area Credit Verifier Device Identifier Shelf Expiration Date Model / Serial / Lot Implant Implant Left: Ankle Description:hardware in left leg Cmt Bone Smartmix Gmv Gent 40gr - [id number] Implanted:Qty : 2 on 02/18/2017 by Lucho Cornelius MD at [facility] Implant Left: Knee DEPUY 06/16/2018 [id number] / / [id number] Pat Triath Asym X3 65b30yv - [id number] Implanted:Qty : 1 on 02/18/2017 by Lucho Cornelius MD at [facility] Implant Left: Patella JUAN MANUEL HENRY 09/23/2021 [id number] / / [id number] Insrt Tib Triath Ps X3 No6 13mm - [id number] Implanted:Qty : 1 on 02/18/2017 by Lucho Cornelius MD at [facility] Implant Left: Knee JUAN MANUEL HENRY 06/15/2020 [id number] / / [id number] Baseplt Tib Triath Cemnt No6 - [id number] Implanted:Qty : 1 on 02/18/2017 by Lucho Cornelius MD at [facility] Implant Left: Knee JUAN MANUEL HENRY 09/06/2020 [id number] / / [id number] Comp Fem Triath Ps Cmt No6 Lt - [id number] Implanted:Qty : 1 on 02/18/2017 by Lucho Cornelius MD at [facility] Implant Left: Knee JUAN MANUEL HENRY 06/15/2020 [id number] / / [id number] Totl Kn Hi Demand Juan Manuel - [id number] Implanted:Qty : 1 on 02/18/2017 by Lucho Cornelius MD at [facility] Implant Left: Patella JUAN MANUEL HENRY CAPKNTOTLHID [id number] / / Promus Stent Implanted:Qty : 1 on 08/13/2008 by Filippo Obrien MD Stent [employer] [id number] / [id number] Description:Promus Stent RCA Procedures Procedure Name Priority [...] Results * SCANNED - COLOGUARD (11/19/2019) [facility] LAB BLOOD ORDERABLES Final Re sult * [...] Blood 08/02/2019 8:58 AM EDT 08/02/2019 Narrative [facility] - 08/03/2019 12:09 PM EDT Performed at: 01 - [address] [id number] Milk Vendor: Golden Keller PhD, Phone: [phone] Patient Fasting: Y Kylie Garcia MD LAB BLOOD ORDERABLES Final Result [facility] [address] [place] [address], [facility] [address] [place] [address], * Hepatitis C Antibody (07/22/2018 8:55 AM EDT) Pathologist [facility] Hep C Virus Ab <0.1 0.0 - 0.9 s/co ratio [facility] Comment: Negative: < 0.8 Indeterminate: 0.8 - 0.9 Positive: > 0.9 The CDC recommends that a positive HCV antibody result be followed up with a HCV Nucleic Acid Amplification test (251464). Blood 07/22/2018 8:55 AM EDT 07/22/2018 Narrative [facility] (AMBULATORY) - 07/23/2018 7:12 AM EDT Performed at: 02 - [facility] [address] [place], [place] [id number] Milk Vendor: Golden Keller PhD, Phone: [phone] Patient Fasting: Y Kylie Garcia MD LAB BLOOD ORDERABLES Final Result [facility] [address] [place] [address], [facility] [address] [place] [address], * SCANNED - INFLUENZA (07/10/2018) Kylie Garcia MD CHART REVIEW TABS Final Result from Last 3 Months or Most Recently Relevant to Health Maintenance [place] [place] [address] MEDICARE ADVANTAGE Advance Directives * Full Code (Latest Code Status on File) Date Activated Date Inactivated Comments 02/18/2017 1:54 PM 02/20/2017 3:33 PM
--- OUTSIDE RECORDS SUMMARY | 2025-08-22 10:04 | XMS_ITS | Clinical Summary ---
Author Organization [facility] Address [facility] [place] [address] Care Team Providers Care Pearl Maker Name Role Phone SimonJoycelyn PANKAJ Primary Care [...] times a day. 4 Active HYDROcodone-tonya taminophen ([place]) 10-325 MG tablet Take 1 tablet by [...] time in the past 12 m [facility], were you homeless or living in a fdc (including now)? No 03/15/2025 Utilities Answer Date Recorded In the past 12 months has th e [employer], gas, oil, or water [employer] threatened to shut off services in your [...] (AWV) 05/07/2020 05/07/2019 UKY-Depression Screening 04/07/2025 04/07/2024 [id number] Vaccine (5 - Pfizer risk season) 2025 [...] this topic Medical Devices Implanted Type Area Melt Helper Device Identifier Shelf Expiration Date Model / Serial / Lot Stent Ureteral Double Pigtail Pos 6fr 24cm - Sn/A - [id number] Implanted:Qty: 1 on 04/27/2024 by Malik Dunaway MD at [facility] Stent Right: Ureter [employer] [id number] 10/09/2025 [id number] / N/A / [id number] Procedures Procedure Name Priority Date/Time Associated Diagnosis Comments HEPATITIS C ANTIBODY - ED W/REFLEX TO HCV QUANT PCR STAT 03/12/2025 8:48 PM EDT from Last 3 Months or Most Recently Relevant to Health Maintenance Results * Hepatitis C Antibody - ED (03/12/2025 8:48 PM EDT) Hepatitis C Antibody Negative Negative 03/12/2025 9:38 PM EDT [facility] Blood Venous blood specimen / Unknown Venipuncture / Unknown 03/12/2025 8:48 PM EDT 03/12/2025 8:59 PM EDT us Staci Castro LAB BLOOD ORDERABLES Final Resul t [facility] [address] [place] [address] from Last 3 Months or Most Recently Relevant to Health Maintenance Insurance [facility] MEDICARE Advance Directives * Full Code (Latest Code Status on File) Date Activated Date Inactivated Comments 03/12/2025 9:57 PM 03/17/2025 2:00 PM Question Answer Comments I have reviewed the capacity from the link above and, if needed, have updated to appropriate status: Yes Care Teams Pearl Maker Relationship Specialty Start Date End Date Joycelyn Montes PA [address] [place] [address] PCP - General 04/01/23
--- OUTSIDE RECORDS SUMMARY | 2025-08-22 10:04 | XMS_ITS ---
Author Organization [facility] Address [address] [place] [address] Care Team Providers Care Security Team Lead Name Role Phone SimonJoycelyn PANKAJ Primary Care [...]
--- OUTSIDE RECORDS SUMMARY | 2025-08-22 11:03 | XMS_ITS | CCD ---
Author Organization Unknown Care Team Providers Care Procurement Services Manager Name Role Phone Unavailable Primary Care Provider Unavailabl e Unavailable Chronic Care Management Unavaila ble Summary Purpose DataExchange Insurance Providers Payer name Policy type / Coverage type Covered republican ID Effective Begin Date Effective End Date [facility] [id number] Unknown Unknown Family History Family History data not found Medication Administered No Medication Administered data Reason For Visit No Reason For Visit data Medical Equipment No Medical Equipment data Advance Directives No Advance Directive data
== END 2025-08-22 23:59 | disposition home or self-care (01) ==
LOC: RAD 09:56
PROVIDERS: PCP Family Medicine; Visit Provider Physician Assistant
DX: M25.512 Pain in left shoulder (principal)
CPT/HCPCS: 73030

== ENCOUNTER 2025-10-14 11:42 | Outpatient (CLI) | payer MEDICARE, SELFPAY ==
[2025-10-14 14:57] LABS: Hematocrit 42.3 % (42.0-52.0); Hemoglobin 13.7 g/dL (14.1-18.0); Immature Granulocytes % 0.3 %; Mean Corpuscular HGB Conc 32.4 g/dL (31.8-35.4); Mean Corpuscular Hemoglobin 29.5 pg (27.0-31.2); Mean Corpuscular Volume 91.0 fl (80-94); Nucleated Red Blood Cells % 0 %; Platelet Count 204 K/mm3 (142-424); Red Blood Count 4.65 M/mm3 (4.60-6.20); Red Cell Distribution Width-SD 46.1 fL; White Blood Count 7.2 K/mm3 (4.8-10.8)
[2025-10-14 15:14] LABS: Alanine Aminotransferase 25 U/L (12-78); Albumin Level 4.7 g/dl (3.5-5.0); Albumin/Globulin Ratio 1.5 (1.1-1.8); Alkaline Phosphatase 120 U/L (38-126); Anion Gap 15.2 mEq/L (5-15); Aspartate Amino Transferase 26 U/L (17-59); Bilirubin,Total 0.5 mg/dl (0.2-1.3); Blood Urea Nitrogen 31 mg/dl (9-20); Calcium 9.7 mg/dl (8.4-10.2); Carbon Dioxide 30 mmol/L (22.0-30.0); Chloride 99 mmol/L (98-107); Cholesterol 121 mg/dl (140-200); Creatinine,Serum 2.20 mg/dl (0.66-1.25); Estimated Glomerular Filt Rate 30 ml/min (>60); GFR (African American) 36 ML/MIN (>60); Globulin 3.1 g/dL (1.3-3.2); Glucose 101 mg/dl (74-100); HDL Cholesterol 44 mg/dl (40-60); Potassium 5.2 mmoL/L (3.5-5.1); Sodium 139 mmol/L (136-145); Total Protein,Serum 7.8 g/dl (6.3-8.2); Triglycerides 173 mg/dl (30-150)
[2025-10-14 15:28] LABS: Free T4 (Free Thyroxine) 0.97 ng/dl (0.78-2.19)
[2025-10-14 15:43] LABS: Thyroid Stimulating Hormone 2.75 uIU/mL (0.465-4.68)
[2025-10-14 16:33] LABS: Hemoglobin A1C 5.4 % (4.0-6.0)
--- OUTSIDE RECORDS SUMMARY | 2025-10-15 09:44 | XMS_ITS ---
Author Organization [facility] Address [address] [place] [address] Care Team Providers Care Delicatessen Goods Stock Clerk Name Role Phone SimonJoycelyn PANKAJ Primary Care Provider [phone] Active Problems Problem Noted Date Diagnosed Date [...]
--- OUTSIDE RECORDS SUMMARY | 2025-10-15 09:44 | XMS_ITS | Clinical Summary ---
Author Organization [facility] Address [address] [place] [id number] Care Team Providers Care Grants Assistant Name Role Phone Unavailable Primary Care Provider [...] ction 01/03/2016 Coronary artery disease invo lving [place] coronary artery of [place] heart without angina pectoris 01/03/2016 Chronic neck [...] 12/15/2015 PT PLAN OF CARE 06/08/2017 03/10/2017 TDAP/TD VACCINES (1 - Tdap) 11/24/2017 11/23/2017 AAA SCREEN ONCE 2017 LIPID PANEL 08/02/2020 08/02/2019, 07/0 02/2019, 10/23/2018, Additional history exists COLOGUARD 11/19/2022 11/19/2019, 11/19/2019 INFLUENZA VACCINE 05/27/2025 07/28/2019, , 07/10/2018, Additional history exists COVID-19 Vaccine ( - 2023-2 5 season) 2025 HEPATITIS C SCREENING Completed 07/22/2018 Pneumococcal Vaccine 50+ Completed 019, 07/27/2017, 07/01/2017 COLONOSCOPY Discontinued COLORECTAL CANCER SCREENING Discontinued Medical Devices Implanted Type Area Detonator Assembler Device Identifier Shelf Expiration Date Model / Serial / Lot Implant Implant Left: Ankle Description:hardware in left leg Cmt Bone Smartmix Gmv Gent 40gr - [id number] Implanted:Qty : 2 on 02/18/2017 by Lucho Cornelius MD at [facility] Implant Left: Knee DEPUY 06/16/2018 [id number] / / [id number] Pat Triath Asym X3 21s36wy - [id number] Implanted:Qty : 1 on 02/18/2017 by Lucho Cornelius MD at [facility] Implant Left: Patella JUAN MANUEL HENRY 09/23/2021 [id number] / / [id number] Insrt Tib Triath Ps X3 No6 13mm - [id number] Implanted:Qty : 1 on 02/18/2017 by Lucho Cornelius MD at [facility] Implant Left: Knee JUAN MANUEL HENRY 06/15/2020 [id number] / / [id number] Baseplt Tib Triath Cemnt No6 - [id number] Implanted:Qty : 1 on 02/18/2017 by Lucho Cornelius MD at [facility] Implant Left: Knee JUAN MANUEL HENRY 09/06/2020 [id number] / / [id number] Comp Fem Triath Ps Cmt No6 Lt - [id number] Implanted:Qty : 1 on 02/18/2017 by Lucho Cornelius MD at [facility] Implant Left: Knee JUAN MANUEL HENRY 06/15/2020 [id number] / / [id number] Totl Kn Hi Demand Juan Manuel - [id number] Implanted:Qty : 1 on 02/18/2017 by Lucho Cornelius MD at [facility] Implant Left: Patella JUAN MANUEL HENRY CAPKNTOTLHID [id number] / / Promus Stent Implanted:Qty : 1 on 08/13/2008 by Filippo Obrien MD Stent [employer] [id number] / [id number] / [id number] Description:Promus Stent RCA Procedures Procedure Name Priority [...] Maintenance Results * SCANNED - COLOGUARD (11/19/2019) [facility] LAB BLOOD ORDERABLES Final Re sult [...] Blood 08/02/2019 8:58 AM EDT 08/02/2019 N[facility]ative [facility] - 08/03/2019 12:09 PM EDT Performed at: 01 - [address] [id number] Technical Sales Representatives: Golden Keller PhD, Phone: [phone] Patient Fasting: Y Kylie Garcia MD LAB BLOOD ORDERABLES Final Result [facility] [address] [place] [address], [facility] [address] [place] [address], * Hepatitis C Antibody (07/22/2018 8:55 AM EDT) Pathologist [facility] Hep C Virus Ab <0.1 0.0 - 0.9 s/co ratio [facility] Comment: Negative: < 0.8 Indeterminate: 0.8 - 0.9 Positive: > 0.9 The CDC recommends that a positive HCV antibody result be followed up with a HCV Nucleic Acid Amplification test (860802). Blood 07/22/2018 8:55 AM EDT 07/22/2018 Narrative [facility] (AMBULATORY) - 07/23/2018 7:12 AM EDT Performed at: 02 - [facility] [address] [place], [place] [id number] Technical Sales Representatives: Golden Keller PhD, Phone: [phone] Patient Fasting: Y Kylie Garcia MD LAB BLOOD ORDERABLES Final Result [facility] [address] [place] [address], [facility] [address] [place] [address], * SCANNED - INFLUENZA (07/10/2018) Kylie Garcia MD CHART REVIEW TABS Final Result from Last 3 Months or Most Recently Relevant to Health Maintenance [place] [address] [place] [address] MEDICARE ADVANTAGE Advance Directives * Full Code (Latest Code Status on File) Date Activated Date Inactivated Comments 02/18/2017 1:54 PM 02/20/2017 3:33 PM
--- OUTSIDE RECORDS SUMMARY | 2025-10-15 09:44 | XMS_ITS | Encounter Summary ---
Author Organization Healthcare Address [address] [place] [address] Care Team Providers Care Soldering Machine Operator Name Role Phone Joycelyn Montes PANKAJ Primary Care Provider [phone] Brinda Pineda LPN Unavailable Unavailable Encounter Details Date Type Department Care Team (Late st Contact Info) Description 02/23/2024 Orders Only External Location [address] [place] [address] Olga Shin MD [address] [place] [address] Social History Tobacco Use Types [...] 025 1:10 AM EDT Tuberculosis Rule-Out Comment:Per [facility] chat with Lay Clark, on 03/15/25 @ 6111, there is no concern for TB. - Aryaannel Ravindra 03/13/2025 03/13/2025 03/13/2025 11:31 AM EDT documented as of this encounter Care Teams Soldering Machine Operator Relationship Specialty Start Date End Date Joycelyn oMntes PA [address] [facility] [place] [address] PCP - General 04/01/23 Brinda Pineda LPN VALUE[place] [address] None TCM Nurse 03/18/25 04/17/25 documented as of this encounter
--- OUTSIDE RECORDS SUMMARY | 2025-10-15 09:44 | XMS_ITS | CCD ---
Author Organization Unknown Care Team Providers Care Civil Cad Tech Name Role Phone Unavailable Primary Care Provider Unavailabl e Unavailable Chronic Care Management Unavaila ble Summary Purpose DataExchange Insurance Providers Payer name Policy type / Coverage type Covered green party ID Effective Begin Date Effective End Date [facility] [id number] Unknown Unknown Family History Family History data not found Medication Administered No Medication Administered data Reason For Visit No Reason For Visit data Medical Equipment No Medical Equipment data Advance Directives No Advance Directive data
--- OUTSIDE RECORDS SUMMARY | 2025-10-15 09:44 | XMS_ITS | Clinical Summary ---
Author Organization [facility] Address [facility] [place] [address] Care Team Providers Care Ceramic Products Sales Engineer Name Role Phone SimonJoycelyn PANKAJ Primary Care Provider [phone] Allergies Active Allergy Reactions Criticality Noted Date [...] times a day. 4 Active HYDROcodone-tonya taminophen ([place]) 10-325 MG tablet Take 1 tablet by [...] and Family Not on file 03/15/2025 Attends Holiness Services Not on file 03/15 Active Member [...] any time in the past 12 m [facility], were you homeless or living in a alf (including now)? No 03/15/2025 Utilities Answer Date Recorded In the past 12 months has th e [employer], gas, oil, or water [employer] threatened to shut off services in your [...] Vaccine: 60+ Years or (1 - Risk 50-74 years 1-dose series) 2002 [facility]-DTaP,Tdap,and Td Vaccines (1 - Tdap) 11/24/2017 11/23/2017 [facility]-Abdominal Aortic Aneurysm (AAA) Screening 2017 [facility]-Diabetes: Hemoglobin A1C 01/30/202004/2019, 04/30/2019, 10/23/2018, Additional history exists [facility]-Medicare Annual Wellness (AWV) 05/07/2020 05/07/2019 [facility]-Depression Screening 04/07/2025 04/07/2024 EQM-SAPAP-84 Vaccine ( season) 2025 07/23/2024, 09/26/2021, 02/14/2021, Additional history exists [facility]Y-Influenza Vaccine (#1) 06/27/202507/23, 08/11/2023, 06/20/2022, Additional history exists UKY- SDOH Screenings 09/15/2025 UKY-Adult SDOH Screenings 09/15/2025 03/15/2025 UKY-Pneumococcal Vaccine: 50+ Years Completed 08/11/2019, 07/27/2017, 07/01/2017 UKY-Zoster Vaccines Completed 04/10/2024, [facility]Y-Hepatitis C Screening Completed 03/12/2025, UKY-Obesity Intervention Completed 03/12/2025, 03/27 HPV Vaccines (No Doses Required) Completed UKY-HIB Vaccines Aged Out No longer e [...] this topic Medical Devices Implanted Type Area Hot Cell Technician Device Identifier Shelf Expiration Date Model / Serial / Lot Stent Ureteral Double Pigtail Pos 6fr 24cm - Sn/A - [id number] Implanted:Qty: 1 on 04/27/2024 by Malik Dunaway MD at [facility] Stent Right: Ureter [id number] 10/09/2025 [id number] / N/A / [id number] Procedures Procedure Name Priority Date/Time Associated Diagnosis Comments HEPATITIS C ANTIBODY - ED W/REFLEX TO HCV QUANT PCR STAT 03/12/2025 8:48 PM EDT from Last 3 Months or Most Recently Relevant to Health Maintenance Results * Hepatitis C Antibody - ED (03/12/2025 8:48 PM EDT) Hepatitis C Antibody Negative Negative 03/12/2025 9:38 PM EDT [facility] Blood Venous blood specimen / Unknown Venipuncture / Unknown 03/12/2025 8:48 PM EDT 03/12/2025 8:59 PM EDT us Staci S Robert [facility] BLOOD ORDERABLES Final Resul t [facility] [address] [place] [address] from Last 3 Months or Most Recently Relevant to Health Maintenance Insurance [facility] MEDICARE Advance Directives * Full Code (Latest Code Status on File) Date Activated Date Inactivated Comments 03/12/2025 9:57 PM 03/17/2025 2:00 PM Question Answer Comments I have reviewed the capacity from the link above and, if needed, have updated to appropriate status: Yes Care Teams Ceramic Products Sales Engineer Relationship Specialty Start Date End Date Joycelyn Montes PA [address] [place] [address] PCP - General 04/01/23
--- OUTSIDE RECORDS SUMMARY | 2025-10-15 09:44 | XMS_ITS | CCD ---
Author Organization Unknown Care Team Providers Care Claim Analyst Name Role Phone Unavailable Primary Care Provider Unavailabl e Unavailable Chronic Care Management Unavaila ble Summary Purpose DataExchange Insurance Providers Payer name Policy type / Coverage type Covered democrat ID Effective Begin Date Effective End Date [facility] [id number] Unknown Unknown Family History Family History data not found Medication Administered No Medication Administered data Reason For Visit No Reason For Visit data Medical Equipment No Medical Equipment data Advance Directives No Advance Directive data
== END 2025-10-14 23:59 | disposition home or self-care (01) ==
LOC: LAB.DROPOF 10-15 09:43
PROVIDERS: PCP Family Medicine; Visit Provider Family Medicine
DX: C34.01 Malignant neoplasm of right main bronchus (principal); I10 Essential (primary) hypertension; E11.69 Type 2 diabetes mellitus with other specified complication; R25.1 Tremor, unspecified; R63.5 Abnormal weight gain
CPT/HCPCS: 80053; 80061; 83036; 84439; 84443; 85025